=== PATIENT | female | born 1945 | race Caucasian/White ===

== ENCOUNTER 2020-05-31 09:59 | Outpatient (CLI) | payer MEDICARE, OTHER, SELFPAY ==
--- NOTE | 2020-05-31 10:09 | MM_ITS ---
WS: [id number] BILATERAL SCREENING DIGITAL MAMMOGRAM WITH CAD HISTORY: SCREENING COMPARISON: 04/15/2019 and 10/14/2018 and 05/01/2018 Bilateral CC and MLO views submitted. Computer aided detection analyzed. Breast composition: The breasts are heterogeneously dense, which may obscure small masses. No suspici ous masses, microcalcifications or architectural distortion. Bilateral calcifications and nodules wit hin each breast. MM/[id number] IMPRESSION: BI-RADS: 2-Benign FOLLOW UP: 1 Year Follow-up
== END 2020-05-31 10:00 | disposition home or self-care (01) ==
LOC: RADSHAW 10:08
PROVIDERS: PCP Family Medicine; Visit Provider Nurse Practitioner Family
DX: Z12.31 Encounter for screening mammogram for malignant neoplasm of breast (principal)
CPT/HCPCS: 77067

== ENCOUNTER → 2020-08-24 10:48 | Outpatient (BNVA) | payer MEDICARE, OTHER, SELFPAY | PROVIDERS: PCP Family Medicine; Visit Provider Urology | DX: N39.0 Urinary tract infection, site not specified (principal) | CPT/HCPCS: 81001 ==

== ENCOUNTER 2020-11-11 09:57 | Outpatient (CLI) | payer MEDICARE, OTHER, SELFPAY ==
--- NOTE | 2020-11-11 10:15 | USCV_ITS ---
Cris New Age: 75 Gender: F : 1945 Exam Date: 11/11/2020 10:22 Ordering Phys: Michele Recio M.D ([email or web address]) Technologist: Sera New [place] [facility] [place]: SOB BP: 111 / 68 HR: 104 Rhythm: Sinus Technical Quality: Adequate MEASUREMENTS (Male / Female) Normal Values 2D ECHO LV Diastolic Diameter PLAX 4.0 cm 4.2 - 5.9 / 3.9 - 5.3 cm LV Systolic Diameter PLAX 3.6 cm LV Chamber Size 4.0 cm IVS Diastolic Thickness 1.7 cm 0.6 - 1.0 / 0.6 - 0.9 cm IVS Systolic Thickness 1.9 cm LVPW Diastolic Thickness 2.3 cm 0.6 - 1.0 / 0.6 - 0.9 cm LVPW Systolic Thickness 2.5 cm RV Chamber Size 3.2 cm LVOT Diameter 2.1 cm LV Ejection Fraction 2D Teich 19.2 % LV Ejection Fraction MOD 2C 33.3 % LV Ejection Fraction 2C AL 31.8 % LA Diameter 3.8 cm LA Width 4.1 cm LA Height 5.2 cm RA Width 4.1 cm RA Height 4.8 cm Aorta at Sinotubular Diameter 2.7 cm M-MODE LV Diastolic Diameter MM 5.6 cm 4.2 - 5.9 / 3.9 - 5.3 cm LV Systolic Diameter MM 4.7 cm LV Ejection Fraction MM Teich 33.3 % IVS Diastolic Thickness MM 0.9 cm 0.6 - 1.0 / 0.6 - 0.9 cm IVS Systolic Thickness MM 0.8 cm LVPW Diastolic Thickness MM 0.6 cm 0.6 - 1.0 / 0.6 - 0.9 cm LVPW Systolic Thickness MM 1.3 cm RV Diastolic Diameter MM 2.0 cm Aortic Annulus Diameter 3.4 cm LA Ao Ratio MM 1.1 MV E Point Septal Separation 1.1 cm DOPPLER AV Peak Velocity 134.7 cm/s LVOT Peak Velocity 91.0 cm/s AV Area Cont Eq vti 2.4 cm squared AV Area Cont Eq pk 2.3 cm squared MV Area PHT 5.4 cm squared Mitral E to A Ratio 6.8 MV E' Velocity 80.5 cm/s Mitral E to MV E' Ratio 16.8 Mitral E to LV E' Lateral Ratio 18.2 Mitral E to LV E' Septal Ratio 15.8 TR Peak Velocity 253.9 cm/s TR Peak Gradient 25.8 mmHg TR Mean Velocity 237.5 cm/s TR Mean Gradient 22.9 mmHg TR Velocity Time Integral 102.9 cm TV Peak E Velocity 75.0 cm/s Right Atrial Pressure 3.0 mmHg Pulmonary Artery Systolic Pressu 28.8 mmHg PV Peak Velocity 65.0 cm/s RV Acceleration Time 0.1 s RV Ejection Time 0.3 s RV AcT/ET 0.3 FINDINGS Left Ventricle Left ventricle is mildly dilated. Severely reduced with EF of 25 to 30%. Moderate to severe global hypokinesis with severe hypokinesis of anterolateral and anterior wall. Diastolic function is indeterminate because of atrial fibrillation. Right Ventricle The right ventricle is normal in size and function. Right Atrium The right atrium is normal in size. Left Atrium The left atrium is mildly enlarged. Mitral Valve Structurally normal mitral valve without significant stenosis or prolapse. There is trace mitral regurgitation. Aortic Valve Structurally normal aortic valve without significant sclerosis or stenosis. There is no aortic regurgitation. Tricuspid Valve Structurally normal tricuspid valve without significant stenosis or regurgitation. RVSP is 35 to 40 mmHg. This is consistent with mild pulmonary hypertension. Pulmonic Valve Structurally normal pulmonic valve without significant stenosis. There is trace pulmonic regurgitation. Pericardium Normal pericardium without effusion. Aorta Normal ascending aorta dimension. CONCLUSIONS LV systolic function is severely reduced with EF of 25 to 30%. There is moderate to severe global hypokinesis however anterior and anterolateral hernandez have severe hypokinesis. Diastolic function cannot be assessed because of atrial fibrillation. Left atrium is mildly enlarged. There is trace mitral regurgitation. Trace pulmonic regurgitation is seen. Mild pulmonary hypertension is seen. No comparison studies are available. Mcihele Recio MD (Electronically Signed) Final Date: 21 November 2020 12:19 S
== END 2020-11-11 09:58 | disposition home or self-care (01) ==
LOC: US 09:57
PROVIDERS: PCP Family Medicine; Visit Provider Internal Medicine
DX: R06.02 Shortness of breath (principal); I48.91 Unspecified atrial fibrillation; I34.0 Nonrheumatic mitral (valve) insufficiency; I37.1 Nonrheumatic pulmonary valve insufficiency; I27.20 Pulmonary hypertension, unspecified
CPT/HCPCS: 93306

== ENCOUNTER → 2020-12-03 10:16 | Outpatient (BNVA) | payer MEDICARE, OTHER, SELFPAY | PROVIDERS: PCP Family Medicine; Visit Provider Internal Medicine | DX: Z01.812 Encounter for preprocedural laboratory examination (principal); Z20.828 Contact with and (suspected) exposure to other viral communicable diseases; I42.9 Cardiomyopathy, unspecified | CPT/HCPCS: 80048; 85025; 87635 ==

== ENCOUNTER 2020-12-13 07:17 | Day surgery (SDC) | payer MEDICARE, OTHER, SELFPAY ==
[2020-12-13] VITALS (28 sets, daily range): BP systolic 135–169; BP diastolic 76–112; PULSE 84–121; RESP 14–29; TEMP 36.1–36.9; O2SAT 85–99; BMI 31.3
--- NOTE | 2020-12-13 07:00 | XACV_ITS ---
Ht: 168 cm Wt: 88 kg BSA: 2.05 m2 Gender: Female : 1945 Any Known Allergies: Other Exam Priority: Routine Procedure(s): Procedure Description: Diagnostic procedure Procedure Description: Left Heart Catheterization Procedure Description: Right Heart Catheterization Procedure Description: Left ventriculography Procedure Description: O2 saturation Procedure Description: Coronary Angiography Diagnostic Cath Status: Elective Diagnostic Findings * No significant disease noted in the Left Main, LAD, Circumflex, or RCA coronary arteries. Left main artery: This is a calcified vessel. No significant stenosis is seen. LAD: It is a small sized vessel. It gives rise to a large diagonal branch. Diagonal branch has moderate 30% stenosis in mid segment. Left circumflex artery: No significant disease is noted. It gives rise to 2 large sized OM branches which are free of disease. RCA: Has moderate diffuse luminal irregularities. No significant stenosis is seen.. * Right heart cath findings: RA pressure 21/23(20) mmHg RV pressure: 53/8(15) mmHg PCW: 46/30(32) mmHg PA pressure: 58/35(43) LVEDP 25 PA saturation: 66.5% AO saturation 92.8% Cardiac output by Kimberlyn: 4.9 L/min Cardiac index by Kimberlyn: 2.4 L/min/m2 TP mmHg PVR: 2.2 Wood units Moderate WHO group 2 hypertension secondary to elevated LV pressure.. * Coronary angiography shows right dominance. Conclusions 1. Nonischemic cardiomyopathy. 2. Elevated right and left-sided cardiac pressures. 3. Normal cardiac output and cardiac index. 4. Moderate post capillary pulmonary hypertension. 5. No significant disease noted in the Left Main, LAD, Circumflex, or RCA coronary arteries. Recommendations * We will initiate Lasix 20 mg twice daily as cardiac pressures are elevated. * Rate control for atrial fibrillation. Interventional RX Recommendation: medical therapy and/or counseling Diagnostic RX Recommendation: medical therapy and/or counseling Pressures Phase:Rest AO : 131 / 85 ( 102 ) @ 3:11:00 AM 119 / 71 ( 91 ) @ 3:20:00 AM 156 / 67 ( 106 ) @ 3:23:00 AM 149 / 72 ( 106 ) @ 3:23:00 AM LV : 154 / 3 / @ 3:23:00 AM 153 / 0 / @ 3:23:00 AM RV : 53 / 8 / @ 2:46:00 AM PA : 58 / 35 ( 43 ) @ 2:48:00 AM RA : a wave = v wave = mean = 20 @ 2:44:00 AM O2 Content Phase:Rest PA : O2 Content O2: 66.5 @ 3:11:00 AM Saturations Phase:Rest AO : 93 @ 3:20:00 AM PA : 67 @ 3:11:00 AM Valves Phase:DefaultPhase AV : 0.0 @ 9:58:17 AM AV Mean Gradient: 0.0 @ 9:58:17 AM Clinical Evaluation EBL: 5mL-10mL Procedural Details Procedure Consent Obtained. Pre-Procedure Time Out. Identified patient by full name and date of as verbalized by the patient/guarantor. Does the consent match the physician's order: Yes. Accurate & Complete Informed Consent: Yes. Inpatient/Outpatient History & Physical on Chart: Yes. If H&P is completed, is and addenduem needed: N/A; If yes, is the addendum complete: N/A. Visualize and Verify Site with Patient/Guarantor: N/A. Relevant Radiology Images available: Yes. Pre-op teaching completed and patient verbalized understanding. The risks, benefits, and alternatives of sedation and/or procedure were discussed by physician. The patient agrees to continue. Procedure started. PERRLA. Strong, equal hand manager consumer insights bilaterally. Lungs clear x 5 lobes. IV Site on Arrival: 20 gauge in the right anticubital. IV Site on Arrival: 20 gauge in the left anticubital. right radial was prepped with chloroprep then draped in the usual sterile fashion. right brachial was prepped with chloroprep then draped in the usual sterile fashion. right groin was prepped with chloroprep then draped in the usual sterile fashion. Physician notified. Physician arrived. Physician scrubbed in. Immediate Pre-Procedure Time Out. Correct Patient: Yes; Correct Procedure: Yes; Correct Site: Yes; Correct Patient Position: Yes; Correct Supplies: Yes; Dried Flammable Prep: Yes; Blood Products Available: N/A;. Lidocaine 1% infiltrated to the right brachial. sheath through I.V. catheter. I.V. catheter out. Mcewen-Julia MON catheter inserted. cougar wire inserted through swan. Baseline sample Acquired. HR: 96 BPM. IV Fluids: 0.9% NaCl at KVO. 0 mL infused prior to photonic laboratory technician. Pre Procedural Pulses: bilateral dorsalis pedis was 2+. Pre Procedural Pulses: bilateral posterior tibial was 1+. Pre Procedural Pulses: bilateral radial was 3+. pt on r/a for rhc. Oximetry samples were obtained. Normal venous range: 60-85%. Normal arterial range: 95-100%. Pressure measurements obtained. Mcewen-Julia out. Lidocaine 1% infiltrated to the right radial. Arterial access obtained. A 5 maldivian TIG catheter in over wire. glidewire inserted. Inventory is TR Glidewire Angled .038 260cm. Equipment: 6F - Radial. Cardiac Cath Pack. ACIST Manifold Kit Model BT 2000. Heparinized Saline (2 units/mL), 1000 mL bag. Glidewire removed. Hand injection performed. Catheter out. Lidocaine 1% infiltrated to the right groin. Arterial access obtained with micropuncture set. Lidocaine 1% infiltrated to the right groin. A 5 maldivian JL4 catheter in over wire. Multiple views taken of left coronary artery. Catheter out. A 5 maldivian JR4 catheter in over wire. Multiple views taken of right coronary artery. Catheter out. A 5 maldivian Angled Pig catheter in over wire. A Manual Compression was successful obtaining hemostatsis at the Right Brachial artery insertion site. A TR Band was successful obtaining hemostatsis at the Right Radial artery insertion site. EDP Sample taken: LV 154/3,25; HR: 106 BPM; SpO2: 94%. Pullback taken: LV 153/0,6; AO 156/67(106); Mean: 0mmHg, Peak to Peak: 0mmHg, SEP: 12sec/min; HR: 101 BPM; SpO2: 97%. Catheter out. groin shot. Post Procedure: Pulses reassessed and unchanged. PERRLA. Strong, equal hand manager consumer insights bilaterally. No VTE prophylaxis required. Fluoro: 11:40. Contrast type used: Omnipaque 300 mgI/mL, 500 mL bottle. [id number]. Medication's Wasted: Heparin = 1000 units. Total IV fluids: 75 mL. Complications: none. Estimated blood loss: 5mL-10mL. Post-op diagnosis: nonischemic cardiomyopathy. A Manual Compression was successful obtaining hemostatsis at the Right Femoral artery insertion site. Sheath(s) removed and manual pressure held until hemostasis was achieved. Sterile 4x4 and Op-site applied to the puncture site. No oozing or hematoma noted. Post sheath removal instructions were given and the patient verbalized understanding. [facility] Clinical Fraility Score: 4: Vulnerable. Lease Administration Analyst Indications: Cardiomyopathy. Chest Pain Symptom Assessment: Non-anginal Chest Pain. Cardiovascular Instability: No. Patient transferred by bed to 1st floor. perclose attempted and failed. Vital chart was stopped. Access Site Site: Right Brachial artery Sheath Size: 6 Fr Hemostasis Method: Manual Compression Hemostasis Success: Successful Site: Right Radial artery Sheath Size: 6 Fr Hemostasis Method: TR Band Hemostasis Success: Successful Site: Right Femoral artery Sheath Size: 6 Fr Hemostasis Method: Manual Compression Hemostasis Success: Successful Procedure Medications Start: 8:38 AM Stop: 8:38 AM Medication: Aspirin Amount: 325 mg Route: P.O. Start: 8:38 AM Stop: 8:38 AM Medication: Versed Amount: 1 mg Route: I.V. Start: 8:38 AM Stop: 8:38 AM Medication: Fentanyl Amount: 50 mcg Route: I.V. Start: 8:40 AM Stop: 8:40 AM Medication: Versed Amount: 1 mg Route: I.V. Start: 8:53 AM Stop: 8:53 AM Medication: Nitrogylcerin Amount: 200 mcg Route: I.A. Start: 8:54 AM Stop: 8:54 AM Medication: Versed Amount: 1 mg Route: I.V. Start: 8:54 AM Stop: 8:54 AM Medication: Fentanyl Amount: 50 mcg Route: I.V. Start: 9:04 AM Stop: 9:04 AM Medication: Versed Amount: 1 mg Route: I.V. Start: 9:34 AM Stop: 9:34 AM Medication: Fentanyl Amount: 50 mcg Route: I.V. Start: 9:51 AM Stop: 9:51 AM Medication: Fentanyl Amount: 50 mcg Route: I.V. Start: 9:54 AM Stop: 9:54 AM Medication: Fentanyl Amount: 50 mcg Route: I.V. I, the attending physician, have reviewed and verified all procedure medications. Yes, all medications given per verbal order History/Risk Factors Hypertension: Yes Dyslipidemia: Yes Tobacco Use: Never Report Signatures Finalized by Michele Recio MD on 12/23/2020 04:51 PM
[2020-12-13] MEDS: TRAMadol 50 mg Tablet PO (11:43)
--- NOTE | 2020-12-23 16:17 | W.PM.OPSUD ---
Surgery/Procedure H&P Update DATE OF PROCEDURE: December 13, 2020 DATE H&P PERFORMED: 11/24/20 H&P UPDATE INFORMATION: I have reviewed H&P completed within last 30 days, I have examined patient prior to procedure and No changes to prior documentation PREOP DIAGNOSIS: New onset cardiomyopathy PRIMARY INDICATION FOR PROCEDURE: New onset cardiomyopathy PLANNED PROCEDURE: Operation Date: 12/13/20 08:30 Proposed Procedures Right heart cath+ left Cardiac Catheterization 28527 I42.9(Left) - Michele Recio M.D PATIENT REASSESSED PRIOR TO SEDATION, WITH NO CHANGE NOTED: Yes PHYSICAL EXAM: alert, oriented x 3 and clear to auscultation bilaterally AIRWAY EVAL/ANESTHESIA PLAN: ASA III, Risks, benefits & alternatives of sedation and/or procedure discussed and Patient agrees to continue as planned
== END 2020-12-13 18:00 | disposition home or self-care (01) ==
LOC: CCL 07:24 → CSU 10:12
PROVIDERS: PCP Family Medicine; Visit Provider Internal Medicine
DX: I42.9 Cardiomyopathy, unspecified (principal); F41.9 Anxiety disorder, unspecified; F32.9 Major depressive disorder, single episode, unspecified; I48.91 Unspecified atrial fibrillation; Z79.01 Long term (current) use of anticoagulants; E78.5 Hyperlipidemia, unspecified; J44.9 Chronic obstructive pulmonary disease, unspecified
CPT/HCPCS: 36415; 93453; C1751; C1769; C1887; C1894; J1644; J2250; J3010; J3490; J7030; Q0163; Q9967

== ENCOUNTER → 2021-01-11 15:27 | Outpatient (BNVA) | payer MEDICARE, OTHER, SELFPAY | PROVIDERS: PCP Family Medicine; Visit Provider Internal Medicine | DX: I48.91 Unspecified atrial fibrillation (principal); I50.20 Unspecified systolic (congestive) heart failure; R06.00 Dyspnea, unspecified; I11.0 Hypertensive heart disease with heart failure; E78.5 Hyperlipidemia, unspecified | CPT/HCPCS: 80048; 83880 ==

== ENCOUNTER 2021-06-02 09:58 | Outpatient (CLI) | payer MEDICARE, OTHER, SELFPAY ==
--- NOTE | 2021-06-02 10:07 | MM_ITS ---
WS: [id number] Bilateral screening digital mammogram, 06/02/2021 Clinical Data: SCREENING Comparison: 05/31/2020, 04/15/2019, 10/14/2018, 05/01/2018, 05/09/2017, 05/03/2016, 04/15/2015, 04/03/2014, 04/15, 03/25/2013, 02/05/2012, 06/02/2011, 05/16/2011, 03/31/2010, 03/04/2009, 01/19/2009, 09/10/2008, 008. Findings: The breast parenchymal pattern shows heterogeneous density. No spiculated masses or clustered calcifi cations are seen. There are no secondary signs of carcinoma. There are small diffuse calcifications i n both breasts. MM/[id number] Impression: 1. Negative bilateral mammogram unchanged. 2. Recommend annual screening mammograms. BIRADS: 1-Negative FOLLOW UP: 1 Year Follow-up The CAD gas and oil checker was used.
== END 2021-06-02 09:59 | disposition home or self-care (01) ==
LOC: RADSHAW 10:04
PROVIDERS: PCP Family Medicine; Visit Provider Family Medicine
DX: Z12.31 Encounter for screening mammogram for malignant neoplasm of breast (principal)
CPT/HCPCS: 77067

== ENCOUNTER 2021-10-12 10:33 | Outpatient (CLI) | payer MEDICARE, OTHER, SELFPAY ==
--- NOTE | 2021-10-12 11:00 | USCV_ITS ---
Shaq Cris Age: 76 Gender: F : 1945 Exam Date: 10/12/2021 11:08 Ordering Phys: Michele Recio M.D ([email or web address]) Technologist: Exam Location: [facility] [place] Indication: chronic AFIB, prior ECHO showed reduced LVEF, no hx cardiac intervention per patient. BP: / HR: 97 Rhythm: Atrial fibrillation Technical Quality: Adequate MEASUREMENTS (Male / Female) Normal Values 2D ECHO LV Diastolic Diameter PLAX 4.9 cm 4.2 - 5.9 / 3.9 - 5.3 cm LV Systolic Diameter PLAX 3.9 cm IVS Diastolic Thickness 1.4 cm 0.6 - 1.0 / 0.6 - 0.9 cm IVS Systolic Thickness 2.1 cm LVPW Diastolic Thickness 1.3 cm 0.6 - 1.0 / 0.6 - 0.9 cm LVPW Systolic Thickness 1.4 cm LVOT Diameter 1.8 cm LV Ejection Fraction 2D Teich 42.5 % LV Ejection Fraction MOD 2C 40.4 % LV Ejection Fraction 2C AL 41.2 % LA Diameter 5.5 cm LA Width 5.7 cm LA Height 6.2 cm RA Width 4.0 cm RA Height 5.2 cm Aorta at Sinotubular Diameter 3.7 cm M-MODE Aortic Annulus Diameter 3.7 cm LA Ao Ratio MM 1.4 MV E Point Septal Separation 1.1 cm DOPPLER AV Peak Velocity 130.0 cm/s LVOT Peak Velocity 91.0 cm/s AV Area Cont Eq vti 1.7 cm squared AV Area Cont Eq pk 1.9 cm squared MV Peak Velocity 171.0 cm/s MV Area PHT 2.6 cm squared Mitral E to A Ratio 103.6 MV E' Velocity 78.5 cm/s Mitral E to MV E' Ratio 11.9 Mitral E to LV E' Lateral Ratio 12.2 Mitral E to LV E' Septal Ratio 11.7 TR Peak Velocity 322.7 cm/s TR Peak Gradient 41.6 mmHg TV Peak E Velocity 74.0 cm/s PV Peak Velocity 85.3 cm/s RV Acceleration Time 0.1 s RV Ejection Time 0.3 s RV AcT/ET 0.3 FINDINGS Left Ventricle Normal left ventricular size. LV systolic function is mild to moderately reduced with EF of 40-45%. Mild global hypokinesis with moderate hypokinesis of the anteroseptal wall. Diastolic function is indeterminate because of atrial fibrillation. Right Ventricle The right ventricle is normal in size and function. Right Atrium The right atrium is normal in size. Left Atrium The left atrium is enlarged Mitral Valve Mild mitral annular calcification is seen without significant stenosis or prolapse. There is mild mitral regurgitation. Aortic Valve Structurally normal aortic valve without significant sclerosis or stenosis. There is trace aortic regurgitation. Tricuspid Valve Structurally normal tricuspid valve without significant stenosis. Mild tricuspid regurgitation. RVSP is 45 to 50 mmHg. This is consistent with moderate pulmonary hypertension Pulmonic Valve Structurally normal pulmonic valve without significant stenosis. There is mild pulmonic regurgitation. Pericardium Normal pericardium without effusion. Aorta Normal ascending aorta dimension. CONCLUSIONS LV systolic function is mild to moderately reduced with EF of 40 to 45%. Mild global hypokinesis with moderate hypokinesis of anteroseptal wall is seen. Diastolic function is indeterminate because of atrial fibrillation. Left atrial enlargement seen. Mild mitral regurgitation. Trace aortic regurgitation. Mild tricuspid regurgitation. Mild pulmonic regurgitation. Moderate pulmonary hypertension with RVSP of 45 to 50 mmHg. Compared to prior echocardiogram from 11/11/2020, LV systolic function has improved from 20 to 25% at that time to 40 to 45% now. Michele Recio MD (Electronically Signed) Final Date: 23 October 2021 18:42 S
== END 2021-10-12 10:34 | disposition home or self-care (01) ==
PROVIDERS: PCP Family Medicine; Visit Provider Internal Medicine
DX: I48.91 Unspecified atrial fibrillation (principal); I08.3 Combined rheumatic disorders of mitral, aortic and tricuspid valves
CPT/HCPCS: 93306

== ENCOUNTER 2022-08-04 12:09 | Outpatient (CLI) | payer MEDICARE, OTHER, SELFPAY ==
--- NOTE | 2022-08-04 | MM_ITS ---
WS: [id number] Bilateral screening digital mammogram, 08/04/2022 Clinical Data: SCREENING Comparison: 06/02/2021, 05/31/2020, 04/15/2019, 10/14/2018, 05/01/2018, 05/09/2017, 05/03/2016, 04/15/2015, 03/13, 04/15/2013, 03/25/2013, 02/05/2012, 06/02/2011, 05/16/2011, 03/31/2010, 03/04/2009, 01/19/2009, 008, 03/02/2008. Findings: The breast parenchymal pattern shows heterogeneous density. No spiculated masses or clustered calcifi cations are seen. There are no secondary signs of carcinoma. There are scattered benign calcification s throughout both breasts. MM/[id number] Impression: 1. Negative bilateral mammogram unchanged. 2. Recommend annual screening mammograms. BIRADS: 1-Negative FOLLOW UP: 1 Year Follow-up The CAD field checker was used.
--- NOTE | 2022-08-04 12:18 | MM_ITS ---
WS: [id number] Bilateral screening digital mammogram, 08/04/2022 Clinical Data: SCREENING Comparison: 06/02/2021, 05/31/2020, 04/15/2019, 10/14/2018, 05/01/2018, 05/09/2017, 05/03/2016, 04/15/2015, 03/13, 04/15/2013, 03/25/2013, 02/05/2012, 06/02/2011, 05/16/2011, 03/31/2010, 03/04/2009, 01/19/2009, 008, 03/02/2008. Findings: The breast parenchymal pattern shows heterogeneous density. No spiculated masses or clustered calcifi cations are seen. There are no secondary signs of carcinoma. There are scattered benign calcification s throughout both breasts.
== END 2022-08-04 12:10 | disposition home or self-care (01) ==
PROVIDERS: PCP Family Medicine; Visit Provider Family Medicine
DX: Z12.31 Encounter for screening mammogram for malignant neoplasm of breast (principal)
CPT/HCPCS: 77063; 77067

== ENCOUNTER → 2022-11-20 14:41 | Outpatient (BNVA) | payer MEDICARE, OTHER, SELFPAY | PROVIDERS: PCP Family Medicine; Visit Provider Internal Medicine | DX: I11.0 Hypertensive heart disease with heart failure (principal); I50.20 Unspecified systolic (congestive) heart failure; R06.00 Dyspnea, unspecified; I48.91 Unspecified atrial fibrillation; E78.5 Hyperlipidemia, unspecified; Z87.891 Personal history of nicotine dependence | CPT/HCPCS: 99214 ==

== ENCOUNTER → 2023-05-22 13:48 | Outpatient (BNVA) | payer MEDICARE, OTHER, SELFPAY | PROVIDERS: PCP Family Medicine; Visit Provider Nurse Practitioner Family | DX: I48.91 Unspecified atrial fibrillation (principal); Z79.01 Long term (current) use of anticoagulants; I11.0 Hypertensive heart disease with heart failure; I50.20 Unspecified systolic (congestive) heart failure | CPT/HCPCS: 99214 ==

== ENCOUNTER 2023-08-06 11:03 | Outpatient (CLI) | payer MEDICARE, OTHER, SELFPAY ==
--- NOTE | 2023-08-06 11:15 | MM_ITS ---
WS: [id number] BILATERAL 2D DIGITAL DIAGNOSTIC MAMMOGRAPHY WITH CAD CLINICAL INFORMATION: SCREENING COMPARISON: 2021 TECHNIQUE: Bilateral CC, MLO, and ML views. FINDINGS: Scattered fibroglandular densities bilaterally. Incidental punctate and lucent centered calcification s. Vascular calcifications. Stable punctate and clustered calcifications bilaterally. Stable ovoid no dules RIGHT breast. No suspicious focal mass, asymmetry, calcifications, or architectural distortion. No evidence of martin gnancy. IMPRESSION: MM/[id number] BI-RADS: 2-Benign FOLLOW UP: 1 Year Follow-up Recommend return to annual screening mammography.
== END 2023-08-06 11:04 | disposition home or self-care (01) ==
PROVIDERS: PCP Family Medicine; Visit Provider Nurse Practitioner Family
DX: Z12.31 Encounter for screening mammogram for malignant neoplasm of breast (principal)
CPT/HCPCS: 77067

== ENCOUNTER → 2023-08-16 11:54 | Outpatient (BNVA) | payer MEDICARE, OTHER, SELFPAY | PROVIDERS: PCP Family Medicine; Visit Provider Nurse Practitioner Women's Health | DX: R39.15 Urgency of urination (principal); N76.2 Acute vulvitis; R35.0 Frequency of micturition | CPT/HCPCS: 84315; 87086 ==

== ENCOUNTER → 2023-10-30 12:34 | Outpatient (BNVA) | payer MEDICARE, OTHER, SELFPAY | PROVIDERS: PCP Family Medicine; Visit Provider Internal Medicine | DX: R06.00 Dyspnea, unspecified (principal); I11.0 Hypertensive heart disease with heart failure; I50.20 Unspecified systolic (congestive) heart failure; I48.91 Unspecified atrial fibrillation; E78.5 Hyperlipidemia, unspecified; Z79.01 Long term (current) use of anticoagulants | CPT/HCPCS: 99214 ==

== ENCOUNTER → 2024-02-22 11:20 | Outpatient (BNVA) | payer MEDICARE, OTHER, SELFPAY | PROVIDERS: PCP Family Medicine; Visit Provider Podiatrist Foot & Ankle Surgery | DX: I73.9 Peripheral vascular disease, unspecified (principal); L84 Corns and callosities; Q66.71 Congenital pes cavus, right foot; Q66.72 Congenital pes cavus, left foot | CPT/HCPCS: 11056; 99203 ==

== ENCOUNTER 2024-03-28 16:31 | Outpatient (CLI) | payer MEDICARE, OTHER, SELFPAY ==
--- NOTE | 2024-03-28 16:41 | USR_ITS ---
PROCEDURE INFORMATION: Exam: US Duplex Right Lower Extremity Veins, Limited Exam date and time: 03/28/2024 4:53 PM Age: 78 years old Clinical indication: Pain; Leg, lower; Right; Additional info: Pain of right lower extremity TECHNIQUE: Imaging protocol: Real-time duplex ultrasound of the right extremity with 2-D hinojosa scale, color Doppler flow and spectral waveform analysis including responses to compression and other maneuvers (when performed) with image documentation. Limited exam was focused on the right lower extremity veins. COMPARISON: No relevant prior studies available. FINDINGS: Right deep veins: Unremarkable. The common femoral, femoral, proximal profunda femoral and popliteal veins are patent without thrombus. Normal Doppler waveforms. Normal compressibility and/or augmentation response. Superficial veins: Greater saphenous vein at the saphenofemoral junction is patent without thrombus. Soft tissues: Popliteal cyst is visualized measuring up to 6.5 x 2.4 x 1.7 cm. US/[place] [id number] IMPRESSION: No evidence of right lower extremity DVT. Right popliteal cyst.
== END 2024-03-28 16:32 | disposition home or self-care (01) ==
LOC: RAD 16:31
PROVIDERS: PCP Family Medicine; Visit Provider Registered Nurse
DX: M79.604 Pain in right leg (principal); R60.0 Localized edema; M71.21 Synovial cyst of popliteal space [Baker], right knee
CPT/HCPCS: 93971

== ENCOUNTER 2024-03-31 12:12 | Outpatient (CLI) | payer MEDICARE, OTHER, SELFPAY | END 2024-03-31 12:13 | disposition home or self-care (01) | LOC: SPT 04-01 09:13 | PROVIDERS: PCP Family Medicine; Visit Provider Podiatrist Foot & Ankle Surgery | DX: S91.302A Unspecified open wound, left foot, initial encounter (principal); S91.301A Unspecified open wound, right foot, initial encounter; X58.XXXA Exposure to other specified factors, initial encounter | CPT/HCPCS: L3030 ==

== ENCOUNTER → 2024-04-03 09:57 | Outpatient (BNVA) | payer MEDICARE, OTHER, SELFPAY | PROVIDERS: PCP Family Medicine; Visit Provider Internal Medicine | DX: I48.91 Unspecified atrial fibrillation (principal); R06.00 Dyspnea, unspecified; I50.20 Unspecified systolic (congestive) heart failure; I10 Essential (primary) hypertension | CPT/HCPCS: 80048; 83880 ==

== ENCOUNTER → 2024-04-30 13:33 | Outpatient (BNVA) | payer MEDICARE, OTHER, SELFPAY | PROVIDERS: PCP Family Medicine; Visit Provider Internal Medicine Cardiovascular Disease | DX: I48.91 Unspecified atrial fibrillation (principal); I11.0 Hypertensive heart disease with heart failure; I50.20 Unspecified systolic (congestive) heart failure; Z87.891 Personal history of nicotine dependence; Z79.01 Long term (current) use of anticoagulants | CPT/HCPCS: 99214 ==

== ENCOUNTER 2024-08-22 10:13 | Outpatient (CLI) | payer MEDICARE, OTHER, SELFPAY ==
--- NOTE | 2024-08-22 10:23 | MM_ITS ---
WS: [id number] BILATERAL 3D TOMOSYNTHESIS DIGITAL SCREENING MAMMOGRAPHY WITH CAD CLINICAL INFORMATION: SCREENING HISTORY: Screening mammogram. No current complaints. COMPARISON: 2022 TECHNIQUE: Bilateral CC and MLO views. FINDINGS: The breasts are composed of heterogeneous fibroglandular density tissue, which can limit the detectio n of small underlying mass lesions. No suspicious mass, asymmetry, calcifications, or architectural d istortion. No evidence of malignancy. Punctate and lucent centered calcifications. Vascular calcifica tions. MM/MM [facility] tomosynthesis [id number] IMPRESSION: DENSITY:The breasts are heterogeneously dense, which may obscure small masses. BI-RADS: 2 - Benign FOLLOW UP: 1 Year Follow-up Recommend return to annual screening mammography.
== END 2024-08-22 10:14 | disposition home or self-care (01) ==
LOC: RAD 10:14
PROVIDERS: PCP Family Medicine; Visit Provider Family Medicine
DX: Z12.31 Encounter for screening mammogram for malignant neoplasm of breast (principal); R92.333 Mammographic heterogeneous density, bilateral breasts; R92.1 Mammographic calcification found on diagnostic imaging of breast
CPT/HCPCS: 77063; 77067

== ENCOUNTER → 2024-11-03 14:12 | Outpatient (BNVA) | payer MEDICARE, OTHER, SELFPAY | PROVIDERS: PCP Family Medicine; Visit Provider Internal Medicine | DX: I11.0 Hypertensive heart disease with heart failure (principal); I50.20 Unspecified systolic (congestive) heart failure; I48.91 Unspecified atrial fibrillation; E78.5 Hyperlipidemia, unspecified; R06.00 Dyspnea, unspecified; Z87.891 Personal history of nicotine dependence; Z79.01 Long term (current) use of anticoagulants | CPT/HCPCS: 99213 ==

== ENCOUNTER 2025-04-04 10:15 | Inpatient (IN) | payer MEDICARE, OTHER, SELFPAY ==
[2025-04-04 10:18] VITALS: BP 173/63; PULSE 59; RESP 18; TEMP 36.8; O2SAT 99
--- NOTE | 2025-04-04 10:19 | CTR_ITS ---
PROCEDURE INFORMATION: Exam: CT Head Without Contrast Exam date and time: 04/04/2025 10:45 AM Age: 79 years old Clinical indication: Altered mental status/memory loss and weakness, extremity; Confusion or disorientation TECHNIQUE: Imaging protocol: Computed tomography of the head without contrast. Radiation optimization: All CT scans at this facility use at least one of these dose optimization techniques: automated exposure control; mA and/or kV adjustment per patient size (includes targeted exams where dose is matched to clinical indication); or iterative reconstruction. COMPARISON: None RADIATION DOSE METRICS: Total DLP (mGy-cm): 1118.1 FINDINGS: Brain: Moderate nonspecific white matter low attenuation which may be related to microvascular ischemic changes. No acute confluent lobar ischemic infarct. No acute intracranial hemorrhage. Cerebral ventricles: The ventricles and sulci are prominent in size compatible with moderate atrophy. Paranasal sinuses: No fluid levels. Mastoid air cells: Visualized mastoid air cells are well aerated. Bones: No acute calvarial fracture. Soft tissues: Visualized soft tissues are unremarkable. CT/CT head wo con* [id number] IMPRESSION: No acute intracranial abnormality. If symptoms persist, consider further evaluation with MRI, if there are no contraindications to obtaining a MRI scan.
--- NOTE | 2025-04-04 10:19 | XRR_ITS ---
PROCEDURE INFORMATION: Exam: XR Chest Exam date and time: 04/04/2025 10:37 AM Age: 79 years old Clinical indication: Other: Weakness; Additional info: Weakness; Fall TECHNIQUE: Imaging protocol: Radiologic exam of the chest. Views: 1 view. COMPARISON: No relevant prior studies available. FINDINGS: Lungs: No focal lung consolidation. Pleural spaces: No pleural effusion. No pneumothorax. Heart/Mediastinum: Mild cardiomegaly. Bones/joints: No acute bony abnormality. XR/XR chest 1V portable [id number] IMPRESSION: No focal lung consolidation.
--- NOTE | 2025-04-04 10:27 | W.ED.NAVMDI ---
HPI - Nausea/Vomiting/Diarrhea General: Chief complaint: Weakness Stated complaint: weakness Time Seen by Provider: 04/04/25 10:16 Source: patient Mode of arrival: ambulatory Limitations: no limitations History of Present Illness: 79-year-old female who states that she has been having increasing weakness is going on a little over a week. She states she initially woke up this morning she was not able to stand or get out of bed states her legs feel extremely weak. She states she lives home alone she does use a cane but was unable to ambulate with a cane either. She denies any recent illness denies any fever denies any vomiting denies any pain. She had a fall she states 5 to 6 days ago does have bruising to her face she denies any pain Associated nausea: No Associated symtoms: Reports malaise; Denies chest pain, dysuria, headache(s) or nausea Related Data Home Medications ?Medication ?Instructions ?Recorded ?Confirmed fluticasone propionate 50 2 spray intranasal DAILY 08/24/20 04/04/25 mcg/actuation nasal spray,suspension (Flonase Allergy Relief) hydroxyzine HCl 25 mg tablet 25 mg PO TID PRN Anxiety 08/24/20 04/04/25 milk thistle 500 mg capsule 500 mg PO DAILY 08/24/20 04/04/25 propylthiouracil 50 mg tablet 50 mg PO TID 08/24/20 04/04/25 tramadol 50 mg tablet 50 mg PO Q8H PRN Pain 08/24/20 04/04/25 multivitamin 1 tab PO DAILY 11/07/21 04/04/25 red yeast rice 600 mg capsule 600 mg PO DAILY 03/22/22 04/04/25 bupropion HCl 150 mg 24 hr tablet, 150 mg PO BID 04/30/24 04/04/25 extended release amiodarone 200 mg tablet 200 mg PO DAILY 04/04/25 04/04/25 apixaban 5 mg tablet (Eliquis) 5 mg PO BID 04/04/25 04/04/25 betamethasone, augmented 0.05 % 1 applic topical BID PRN Skin 04/04/25 04/04/25 topical ointment Irritation cranberry fruit 200 mg-dandelion 1 cap PO DAILY 04/04/25 04/04/25 50 mg-goldenseal 20 mg-herbs capsule (Urinary Cranberry Blend) dextromethorphan-guaifenesin 30 1 tab PO Q12H PRN Congestion 04/04/25 04/04/25 mg-600 mg tablet extended hxiazxv00 hr (Mucinex DM) hydrochlorothiazide 12.5 mg capsule 12.5 mg PO DAILY 04/04/25 04/04/25 losartan 100 mg tablet 100 mg PO DAILY 04/04/25 04/04/25 ondansetron 4 mg disintegrating 4 mg PO Q8H PRN Nausea And Vomiting 04/04/25 04/04/25 tablet vitamin B complex 1 tab PO DAILY 04/04/25 04/04/25 Previous Rx's ?Medication ?Instructions ?Recorded custom inserts #1 ea 02/22/24 metoprolol tartrate 50 mg tablet 50 mg PO BID #180 tabs 10/27/24 Allergies Allergy/AdvReac Type Severity Reaction Status Date / Time citalopram (From Celexa) Allergy NA Verified 11/03/24 14:22 clarithromycin Allergy NA Verified 11/03/24 14:22 clindamycin Allergy NA Verified 11/03/24 14:22 doxepin Allergy NA Verified 11/03/24 14:22 hydrocodone Allergy NA Verified 11/03/24 14:22 ibuprofen Allergy NA Verified 11/03/24 14:22 levofloxacin Allergy NA Verified 11/03/24 14:22 lisinopril Allergy NA Verified 11/03/24 14:22 naproxen (From Aleve) Allergy NA Verified 11/03/24 14:22 Penicillins Allergy NA Verified 11/03/24 14:22 pseudoephedrine Allergy NA Verified 11/03/24 14:22 red dye Allergy NA Verified 11/03/24 14:22 Sulfa (Sulfonamide Allergy NA Verified 11/03/24 14:22 Antibiotics) venlafaxine Allergy NA Verified 11/03/24 14:22 Review of Systems Const: Reports: malaise; Denies: fever(s), chills, body aches or change in appetite Eyes: Denies: blurry vision or eye discomfort ENMT: Denies: throat pain or dental pain Card: Denies: chest pain Resp: Denies: dyspnea GI: Denies: abdominal pain, nausea, vomiting or diarrhea : Denies: dysuria Musc: Denies: neck pain or back pain Skin/Breast: Denies: rash Neuro: Reports: weakness in extremities; Denies: headache(s) PFSH ED PFSH: Medical History No pertinent past medical history NEGHX:DM,DVT/PE PCP: Shai New and Amberly Lima Anxiety Hypothyroidism Family hx of colon cancer Atrial fibrillation Heart failure with reduced ejection fraction Hyperlipidemia COPD (chronic obstructive pulmonary disease) HTN (hypertension) Recurrent UTI Surgical History Hx of hysterectomy (~1985) 1985 INOCENCIO, BSO performed by Dr. Gonzalez Due to bleeding and cervical polyps S/P appendectomy S/P sinus surgery S/P cataract surgery S/P tonsillectomy S/P bunionectomy S/P cholecystectomy S/P shoulder surgery Family History Mother , 82 Breast cancer dx age later in life Denies family history of Colon cancer Ovarian cancer Diabetes Heart disease Hypercholesteremia Hypertension Uterine cancer Thyroid disease Stroke Social History Smoking and tobacco/nicotine status: former use of tobacco/nicotine Physical Exam Const: COMMON NORMALS: patient oriented x3 HENMT: COMMON NORMALS: atraumatic HEAD & SCALP: atraumatic OTHER: Bruising noted to face Neck/C-Spine: COMMON NORMALS: full ROM and supple Chest: COMMONS NORMALS: normal inspection of the chest Resp: COMMON NORMALS: normal respiratory effort, No retractions, No use of accessory muscles and clear to auscultation bilaterally AUSCULTATION: clear to auscultation bilaterally Cardio: COMMON NORMALS: regular rate, regular rhythm and No murmurs present (Cardio) RATE: regular rate RHYTHM: regular rhythm GI: COMMON NORMALS: Normal to inspection, nondistended, normoactive bowel sounds present, Soft to palpation, non-tender and no masses PALPATION: Yes Soft to palpation Extremity: COMMON NORMALS: normal to inspection and full ROM Neuro: COMMON NORMALS: patient oriented x3, moves all extremities and no focal motor deficits Psych: COMMON NORMALS: mental status grossly normal, Normal thought process present and cooperative THOUGHT PROCESS: Normal thought process present Skin: COMMON NORMALS: no rashes or lesions noted and no wounds GENERAL SKIN EXAM: no rashes or lesions noted Course Vital Signs: Vital signs: Vital Signs Temperature 98.3 F 04/04/25 10:18 Pulse Rate 67 04/04/25 12:23 Respiratory Rate 18 04/04/25 10:18 Blood Pressure 166/77 04/04/25 12:23 Pulse Oximetry 95 04/04/25 12:23 Oxygen Delivery Me thod Room Air 04/04/25 12:23 MDM - Nausea/Vomiting/Diarrhea Medical Decision Making Patient presents here with generalized weakness she is not able to ambulate or take care of herself blood work imaging is normal spoke to hospitalist will admit Medical Records I reviewed the patient's medical records. Lab Data I reviewed the patient's lab results. 04/04/25 10:34 04/04/25 10:34 Radiology Impressions Chest X-Ray 04/04/25 10:19 IMPRESSION: No focal lung consolidation. Head CT 04/04/25 10:19 IMPRESSION: No acute intracranial abnormality. If symptoms persist, consider further evaluation with MRI, if there are no contraindications to obtaining a MRI scan. Cervical Spine CT 04/04/25 10:31 IMPRESSION: 1. No acute bony abnormality. Degenerative changes of the cervical spine. If symptoms persist, consider further evaluation with MRI, if there are no contraindications to obtaining a MRI scan. 2. Asymmetric appearance of the piriform sinuses with relative effacement of the left side. Underlying mucosal lesion cannot be excluded. Recommend correlation with direct visualization. COMMENTS: Consistent with the [employer]'s Incidental Findings Committee white paper (J Am Johan Radiol 2015): In patients aged 35 years and older with an incidental thyroid nodule equal to or greater than 1.[address], MRI or extrathyroidal US, further evaluation with dedicated thyroid US is recommended for patients with normal life expectancy and without comorbidities. For smaller nodules without suspicious features, no further evaluation or follow up is recommended. Laboratory Results WBC 8.29 10^3/uL (3.29-11.43) 04/04/25 10:34 RBC 2.85 10^6/uL (3.85-5.65) L 04/04/25 10:34 Hgb 9.40 g/dL (11.27-16.99) L 04/04/25 10:34 Hct 28.5 % (36-47) L 04/04/25 10:34 MCV 100.0 fl (85-98) H 04/04/25 10:34 MCH 33.0 pg (27-33) 04/04/25 10:34 MCHC 33.0 g/dL (30-55) 04/04/25 10:34 RDW 15.4 % (12.1-15.1) H 04/04/25 10:34 Plt Count 423 10^3/cmm (157-399) H 04/04/25 10:34 MPV 10.0 fL (7.4-10.4) 04/04/25 10:34 Neut % (Auto) 69.9 % 04/04/25 10:34 Lymph % (Auto) 19.4 % 04/04/25 10:34 [place] % (Auto) 8.7 % 04/04/25 10:34 Eos % (Auto) 1.1 % 04/04/25 10:34 Baso % (Auto) 0.4 % 04/04/25 10:34 Neut # (Auto) 5.80 10^3/uL (1.8-7.7) 04/04/25 10:34 Lymph # (Auto) 1.6 10^3/uL (0.8-4.8) 04/04/25 10:34 [place] # (Auto) 0.7 10^3/uL (0.2-0.9) 04/04/25 10:34 Eos # (Auto) 0.1 10^3/uL (0.0-0.8) 04/04/25 10:34 Baso # (Auto) 0.0 10^3/uL (0.0-0.1) 04/04/25 10:34 Nucleated RBC % (auto) 0.2 % 04/04/25 10:34 Nucleated RBCs # 0.0 /100WBC 04/04/25 10:34 PT 18.40 SECONDS (12.1-14.9) H 04/04/25 10:34 INR 1.43 (0.8-1.2) H 04/04/25 10:34 Sodium 133 mmol/L (136-145) L 04/04/25 10:34 Potassium 3.9 mmol/L (3.5-5.1) 04/04/25 10:34 Chloride 94 mmol/L (98-107) L 04/04/25 10:34 Carbon Dioxide 28 mmol/L (22-29) 04/04/25 10:34 Anion Gap 14.9 (5-19) 04/04/25 10:34 BUN 16 mg/dL (8-23) 04/04/25 10:34 Creatinine 1.1 mg/dL (0.5-0.9) H 04/04/25 10:34 GFR Calculation Not Reportable 04/04/25 10:34 Glucose 96 mg/dL (65-115) 04/04/25 10:34 POC Glucose 104 mg/dL (70-110) 04/04/25 10:54 Calculated Osmolality 277 mOsm/kg (285-295) L 04/04/25 10:34 Calcium 9.7 mg/dL (8.5-10.5) 04/04/25 10:34 Magnesium 2.1 mg/dL (1.7-2.3) 04/04/25 10:34 Total Bilirubin 1.8 mg/dL (0.15-1.2) H 04/04/25 10:34 AST 19 U/L (0-32) 04/04/25 10:34 ALT 22 U/L (0-33) 04/04/25 10:34 Alkaline Phosphatase 109 U/L (35-105) H 04/04/25 10:34 Troponin T Baseline 28 ng/L (0-10) H 04/04/25 10:34 Total Protein 6.8 g/dL (6.6-8.7) 04/04/25 10:34 Albumin 4.4 g/dL (3.5-5.2) 04/04/25 10:34 Globulin 2.4 g/dL (1.3-4.6) 04/04/25 10:34 TSH 2.97 uIU/mL (0.27-4.20) 04/04/25 10:34 Urine Color Yellow (Yellow) 04/04/25 11:16 Urine Appearance Clear (CLEAR) 04/04/25 11:16 Urine pH 6.0 (5-7) 04/04/25 11:16 Ur Specific [place] 1.011 (1.005-1.030) 04/04/25 11:16 Urine Protein Negative (Negative) 04/04/25 11:16 Urine Glucose (UA) Negative (Normal) 04/04/25 11:16 Urine Ketones Negative (Negative) 04/04/25 11:16 Urine Blood Negative (Negative) 04/04/25 11:16 Urine Nitrate Negative (Negative) 04/04/25 11:16 Urine Bilirubin Negative (Negative) 04/04/25 11:16 Urine Urobilinogen 2.0 mg/dL (Negative) H 04/04/25 11:16 Ur Leukocyte Esterase Negative (Negative) 04/04/25 11:16 Urine RBC 0-2 /hpf (0-2) 04/04/25 11:16 Urine WBC 0-5 /hpf (0-5) 04/04/25 11:16 Ur Squamous Epith Cells 0-5 /hpf (0-5) 04/04/25 11:16 Amorphous Sediment Not Reportable 04/04/25 11:16 Urine Bacteria None seen /hpf (NONE) 04/04/25 11:16 Hyaline Casts 1.65 /lpf 04/04/25 11:16 All radiology interpretation(s) finalized by discharge EKG Data EKG 1: I personally reviewed and interpreted this EKG as follows: EKG interpretation date: 04/04/25 EKG interpretation time: 10:28 Interpretation: sinus garima hr [address] elevation qrs 112 qtc 462 Discharge Plan Discharge Patient Disposition: Admitted As Inpatient Clinical Impression: Generalized weakness Condition: Stable Coding Level of Care Code ED Package Wrapper for Alyson Dee
--- NOTE | 2025-04-04 10:28 | ECG_ITS ---
[employer] Test Date: 2025-04-04 Pat Name: Cris New Department: Room: Gender: Female [employer]: : 1945 Requested By: Linda Chapman Order Number: [id number] Reading MD: MANOHAR ALICEA Measurements Intervals [place] Rate: 57 P: 76 TN: 244 QRS: -29 QRSD: 112 T: 75 QT: 468 QTc: 458 Interpretive Statements SINUS BRADYCARDIA WITH FIRST DEGREE AV BLOCK BORDERLINE LEFT AXIS DEVIATION [QRS AXIS < -20] MODERATE INTRAVENTRICULAR CONDUCTION DELAY [110+ ms QRS DURATION] NONSPECIFIC ST & T-WAVE ABNORMALITY No previous ECG available for comparison Electronically Signed On 04-06-2025 19:06:34 CDT by MANOHAR ALICEA [email or web address]
--- NOTE | 2025-04-04 10:31 | CTR_ITS ---
PROCEDURE INFORMATION: Exam: CT Cervical Spine Without Contrast Exam date and time: 04/04/2025 10:45 AM Age: 79 years old Clinical indication: Injury or trauma; Fall; Blunt trauma TECHNIQUE: Imaging protocol: Computed tomography of the cervical spine without contrast. Radiation optimization: All CT scans at this facility use at least one of these dose optimization techniques: automated exposure control; mA and/or kV adjustment per patient size (includes targeted exams where dose is matched to clinical indication); or iterative reconstruction. COMPARISON: None RADIATION DOSE METRICS: Total DLP (mGy-cm): 209.6 FINDINGS: Bones/joints: The cervical vertebral body heights are maintained. There is a 0.2 cm anterolisthesis of C5 on C6 and C7 on T1 the facet joints are not jumped or perched. Moderate to severe disc space narrowing at C5-C6 and C6-C7. C2-C3: Spinal canal is patent. Moderate right neuroforaminal narrowing secondary to uncovertebral and facet hypertrophy. C3-C4: The spinal canal is patent. Moderate right and severe left neuroforaminal narrowing secondary to uncovertebral and facet hypertrophy. C4-C5: Spinal canal is patent. Severe right and moderate left neuroforaminal narrowing secondary to uncovertebral and facet hypertrophy. C5-C6: Broad-based disc osteophyte complex with mild central canal stenosis. Moderate bilateral neuroforaminal narrowing secondary to uncovertebral and facet hypertrophy. C6-C7: Broad-based disc osteophyte complex with mild central canal stenosis. Severe right and moderate left neuroforaminal narrowing secondary to uncovertebral and facet hypertrophy. C7-T1: No significant disc bulge or herniation. No severe spinal canal stenosis. No significant neuroforaminal narrowing. Lungs: Lung apices are normal. Soft tissues: Heterogeneous thyroid gland with nodules and calcifications. The thyroid gland would be better assessed with thyroid ultrasound if clinically warranted. Asymmetric appearance of the piriform sinuses with relative effacement of the left side. Underlying mucosal lesion cannot be excluded. Recommend correlation with direct visualization. CT/CT cervical spin wo con* [id number] IMPRESSION: 1. No acute bony abnormality. Degenerative changes of the cervical spine. If symptoms persist, consider further evaluation with MRI, if there are no contraindications to obtaining a MRI scan. 2. Asymmetric appearance of the piriform sinuses with relative effacement of the left side. Underlying mucosal lesion cannot be excluded. Recommend correlation with direct visualization. COMMENTS: Consistent with the [place] [employer]'s Incidental Findings Committee white paper (J Am Johan Radiol 2015): In patients aged 35 years and older with an incidental thyroid nodule equal to or greater than 1.[address], MRI or extrathyroidal US, further evaluation with dedicated thyroid US is recommended for patients with normal life expectancy and without comorbidities. For smaller nodules without suspicious features, no further evaluation or follow up is recommended.
[2025-04-04 10:43] LABS: Basophils % 0.4 %; Eosinophils # 0.1 10^3/uL (0.0-0.8); Eosinophils % 1.1 %; Hematocrit 28.5 % (36-47); Lymphocytes # 1.6 10^3/uL (0.8-4.8); Lymphocytes % 19.4 %; Monocytes # 0.7 10^3/uL (0.2-0.9); Monocytes % 8.7 %; Neutrophils % 69.9 %; Nucleated Red Blood Cells % 0.2 %; Platelet Count 423 10^3/cmm (157-399); Red Blood Count 2.85 10^6/uL (3.85-5.65); Red Cell Distribution Width 15.4 % (12.1-15.1); White Blood Count 8.29 10^3/uL (3.29-11.43)
[2025-04-04 10:55] LABS: INR 1.43 (0.8-1.2)
[2025-04-04 10:57] LABS: Glucose Point of Care 104 mg/dL (70-110)
[2025-04-04 10:59] LABS: Chloride 94 mmol/L (98-107); Potassium 3.9 mmol/L (3.5-5.1); Sodium 133 mmol/L (136-145)
[2025-04-04 11:02] LABS: Troponin(5th) Baseline 28 ng/L (0-10)
[2025-04-04 11:23] LABS: Alanine Aminotransferase 22 U/L (0-33); Albumin Level 4.4 g/dL (3.5-5.2); Anion Gap 14.9 (5-19); Aspartate Amino Transferase 19 U/L (0-32); Blood Urea Nitrogen 16 mg/dL (8-23); Calcium 9.7 mg/dL (8.5-10.5); Carbon Dioxide 28 mmol/L (22-29); Creatinine Clr Calc Pharmacy 41.1105; Globulin 2.4 g/dL (1.3-4.6); Glucose 96 mg/dL (65-115); Magnesium 2.1 mg/dL (1.7-2.3); Osmolality Calculated 277 mOsm/kg (285-295); Total Bilirubin 1.8 mg/dL (0.15-1.2); Total Protein 6.8 g/dL (6.6-8.7)
[2025-04-04 11:24] LABS: Alkaline Phosphatase 109 U/L (35-105); Thyroid Stimulating Hormone 2.97 uIU/mL (0.27-4.20)
[2025-04-04 11:30] LABS: Bilirubin Urine Negative (Negative); Blood Urine Negative (Negative); Glucose Urine UA Negative (Normal); Ketones Urine Negative (Negative); Leukocyte Esterase Urine Negative (Negative); Nitrate Urine Negative (Negative); Protein Urine Negative (Negative); Specific Gravity, Urine 1.011 (1.005-1.030); Urine Appearance Clear (CLEAR); Urine Color Yellow (Yellow)
[2025-04-04 11:36] LABS: Add Urine Microscopic? YES; Bacteria Urine None Seen /hpf; Hyaline Casts Urine 1.65 /lpf; RBC Urine 0-2 /hpf (0-2); Squamous Epithelial Cell Urine 0-5 /hpf (0-5); WBC Urine 0-5 /hpf (0-5)
[2025-04-04 12:23] VITALS: BP 166/77; PULSE 67; O2SAT 95
[2025-04-04 12:33] LABS: Troponin 5 2HR 21.65 ng/L (0-10)
[2025-04-04 12:38] LABS: Troponin 5 2HR Delta -6.35 ABS# (0-10)
--- NOTE | 2025-04-04 13:00 | ECG_ITS ---
[facility] Date: 2025-04-04 Pat Name: Cris New Department: Room: 276 Gender: Female Information Security: : 1945 Requested By: Linda Chapman Order Number: [id number] Reading MD: MANOHAR ALICEA Measurements Intervals [place] Rate: 60 P: 77 NM: 260 QRS: -14 QRSD: 111 T: 75 QT: 450 QTc: 451 Interpretive Statements SINUS RHYTHM WITH FIRST DEGREE AV BLOCK MODERATE INTRAVENTRICULAR CONDUCTION DELAY [110+ ms QRS DURATION] NONSPECIFIC ST & T-WAVE ABNORMALITY Compared to ECG 04/04/2025 10:28:44 Sinus bradycardia no longer present T-wave abnormality still present Electronically Signed On 04-06-2025 19:08:09 CDT by MANOHAR ALICEA [email or web address]
[2025-04-04 13:03] VITALS: BP 175/63; PULSE 63; O2SAT 100
--- NOTE | 2025-04-04 13:16 | PM.HP ---
Providers/Chief Complaint Admitting Physician: Tyson Cook MD Primary Care Provider: Jean Gibbons Chief Complaint: weakness History of Present Illness Cris New is a 79 year old female with a past medical history of atrial fibrillation, hypothyroidism, hyperlipidemia, COPD, hypertension who presents to [facility] due to weakness, fatigue. Currently patient is alert oriented x 2, following all commands, she reports recent increased weakness over the last week, she has had a fall about a week ago she has bruising along the right mu-ism and right eye, she reports more generalized weakness and focal weakness no history of strokes, no chest pain, shortness of breath no cardiovascular history she lives at home by herself, her daughter lives out of town but does help take care of her she has a neighbor who helps take care of her, she ambulates with a walker recently she has been finding that she has been having increased unsteadiness, she has had falls, denies any fevers, chills, does report intermittent dizziness, does report poor appetite, does report recent weight loss, does report taking a blood thinner for atrial fibrillation, she denies any bloody or black stools, no history of anemia, Review of Systems Const: Reports: fatigue and malaise Card: Denies: chest pain Resp: Denies: dyspnea GI: Denies: abdominal pain : Denies: flank pain Musc: Reports: back pain; Denies: neck pain Medications/Allergies Home Medications ?Medication ?Instructions ?Recorded ?Confirmed ?Last Taken ?Type fluticasone propionate 50 2 spray intranasal DAILY 08/24/20 04/04/25 04/03/25 History mcg/actuation nasal spray,suspension (Flonase Allergy Relief) hydroxyzine HCl 25 mg tablet 25 mg PO TID PRN Anxiety 08/24/20 04/04/25 Unknown History milk thistle 500 mg capsule 500 mg PO DAILY 08/24/20 04/04/25 04/03/25 History propylthiouracil 50 mg tablet 50 mg PO TID 08/24/20 04/04/25 12/12/20 20:00 History tramadol 50 mg tablet 50 mg PO Q8H PRN Pain 08/24/20 04/04/25 12/12/20 20:00 History multivitamin 1 tab PO DAILY 11/07/21 04/04/25 04/03/25 History red yeast rice 600 mg capsule 600 mg PO DAILY 03/22/22 04/04/25 04/03/25 History custom inserts #1 ea 02/22/24 04/04/25 Unknown Rx bupropion HCl 150 mg 24 hr tablet, 150 mg PO BID 04/30/24 04/04/25 04/03/25 History extended release metoprolol tartrate 50 mg tablet 50 mg PO BID #180 tabs 10/27/24 04/04/25 04/03/25 Rx amiodarone 200 mg tablet 200 mg PO DAILY 04/04/25 04/04/25 04/03/25 History apixaban 5 mg tablet (Eliquis) 5 mg PO BID 04/04/25 04/04/25 04/03/25 History betamethasone, augmented 0.05 % 1 applic topical BID PRN Skin 04/04/25 04/04/25 Unknown History topical ointment Irritation cranberry fruit 200 mg-dandelion 1 cap PO DAILY 04/04/25 04/04/25 04/03/25 History 50 mg-goldenseal 20 mg-herbs capsule (Urinary Cranberry Blend) dextromethorphan-guaifenesin 30 1 tab PO Q12H PRN Congestion 04/04/25 04/04/25 Unknown History mg-600 mg tablet extended [id number] hr (Mucinex DM) hydrochlorothiazide 12.5 mg capsule 12.5 mg PO DAILY 04/04/25 04/04/25 04/03/25 History losartan 100 mg tablet 100 mg PO DAILY 04/04/25 04/04/25 04/03/25 History ondansetron 4 mg disintegrating 4 mg PO Q8H PRN Nausea And Vomiting 04/04/25 04/04/25 Unknown History tablet vitamin B complex 1 tab PO DAILY 04/04/25 04/04/25 04/03/25 History Allergies Allergy/AdvReac Type Severity Reaction Status Date / Time citalopram (From Celexa) Allergy NA Verified 11/03/24 14:22 clarithromycin Allergy NA Verified 11/03/24 14:22 clindamycin Allergy NA Verified 11/03/24 14:22 doxepin Allergy NA Verified 11/03/24 14:22 hydrocodone Allergy NA Verified 11/03/24 14:22 ibuprofen Allergy NA Verified 11/03/24 14:22 levofloxacin Allergy NA Verified 11/03/24 14:22 lisinopril Allergy NA Verified 11/03/24 14:22 naproxen (From Aleve) Allergy NA Verified 11/03/24 14:22 Penicillins Allergy NA Verified 11/03/24 14:22 pseudoephedrine Allergy NA Verified 11/03/24 14:22 red dye Allergy NA Verified 11/03/24 14:22 Sulfa (Sulfonamide Allergy NA Verified 11/03/24 14:22 Antibiotics) venlafaxine Allergy NA Verified 11/03/24 14:22 PFSH Acute PFSH: Medical History No pertinent past medical history NEGHX:DM,DVT/PE PCP: Shai New and Amberly Lima Anxiety Hypothyroidism Family hx of colon cancer Atrial fibrillation Heart failure with reduced ejection fraction Hyperlipidemia COPD (chronic obstructive pulmonary disease) HTN (hypertension) Recurrent UTI Surgical History Hx of hysterectomy (~1985) 1985 INOCENCIO, BSO performed by Dr. Gonzalez Due to bleeding and cervical polyps S/P appendectomy S/P sinus surgery S/P cataract surgery S/P tonsillectomy S/P bunionectomy S/P cholecystectomy S/P shoulder surgery Family History Mother , 82 Breast cancer dx age later in life Denies family history of Colon cancer Ovarian cancer Diabetes Heart disease Hypercholesteremia Hypertension Uterine cancer Thyroid disease Stroke Social History Smoking and tobacco/nicotine status: former use of tobacco/nicotine Vitals/I&O/Wt Last Vital Signs Temp 98.3 F 04/04/25 10:18 Pulse 63 04/04/25 13:03 Resp 18 04/04/25 10:18 BP 175/63 04/04/25 13:03 Pulse Ox 100 04/04/25 13:03 O2 Del Method Room Air 04/04/25 12:23 Weight last 48 hrs Weight 68.039 kg Physical Exam Const: COMMON NORMALS: no acute distress and patient oriented x3 HENMT: COMMON NORMALS: normocephalic HEAD & SCALP: normocephalic Neck/C-Spine: COMMON NORMALS: no JVD Resp: COMMON NORMALS: normal respiratory effort, No retractions, No use of accessory muscles and clear to auscultation bilaterally AUSCULTATION: clear to auscultation bilaterally Cardio: COMMON NORMALS: no JVD, regular rate, regular rhythm, S1 normal heart sound present and S2 normal heart sound present RATE: regular rate RHYTHM: regular rhythm HEART SOUNDS: S1 normal heart sound present and S2 normal heart sound present GI: COMMON NORMALS: Normal to inspection, nondistended, normoactive bowel sounds present, Soft to palpation and non-tender Extremity: COMMON NORMALS: no calf tenderness and no pedal edema Neuro: COMMON NORMALS: patient oriented x3, CN's II-XII intact bilaterally, moves all extremities and no focal motor deficits Psych: COMMON NORMALS: mental status grossly normal Skin: NARRATIVE SKIN EXAM: Bruising right face, Data 04/04/25 10:34 04/04/25 10:34 A&P Assessment and plan (1) Generalized weakness: (2) Falls: (3) Acute anemia: Plan Acute anemia -Etiology unclear - Iron studies, Hemoccult stool, B12, folate - Will hold Eliquis for now - Monitor hemoglobin - Transfuse if hemoglobin less than 7 - Protonix, Carafate History of atrial fibrillation, continue amiodarone, continue metoprolol, hold Eliquis Generalized weakness, falls - Check orthostatic vitals - PT OT - History lumbar spine Bruising, right face, after fall - Eliquis on hold Full code SCDs for DVT prophylaxis PDMP PDMP Reviewed: Not Reviewed Attestations Medical Necessity Statement*: Patient requires hospitalization for acute anemia, generalized weakness, falls Diagnoses Generalized weakness R53.1 Falls R29.6 Acute anemia D64.9
[2025-04-04 13:23] VITALS: BP 179/66; PULSE 66; RESP 17; TEMP 36.5; O2SAT 98
--- NOTE | 2025-04-04 13:26 | XRR_ITS ---
PROCEDURE INFORMATION: Exam: XR Lumbosacral Spine Exam date and time: 04/04/2025 4:37 PM Age: 79 years old Clinical indication: Lumbago; Lower back pain post fall TECHNIQUE: Imaging protocol: Radiologic exam of the lumbosacral spine. Views: 2 or 3 views. COMPARISON: No relevant prior studies available. FINDINGS: Bones/joints: No acute fracture. Normal alignment. Levoscoliosis centered at the L2-L3 level. Severe multilevel disc space narrowing throughout the lumbar spine. Multilevel degenerative facet changes. Soft tissues: Aneurysmal dilation of the calcified infrarenal abdominal aorta measuring up to 3 cm in diameter. XR/XR lumbar spine 2-3V* [id number] IMPRESSION: 1. No bony abnormality. If symptoms persist, consider further evaluation with cross-sectional imaging. 2. 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
[2025-04-04 13:35] LABS: Erythrocyte Sedimentation Rate 2 mm/hr (0-15)
[2025-04-04 13:45] LABS: Lactic Sepsis W/Reflex 0.9 mmol/L (0.5-2.2)
[2025-04-04 13:49] LABS: Estmated Average Glucose 103; Hemoglobin A1C 5.2 % (4.0-6.0)
[2025-04-04 13:51] LABS: Procalcitonin 0.06 ng/mL (0-0.5)
[2025-04-04] MEDS: sodium chloride 0.9% 1,000 ML 75 ML IV (13:56)
[2025-04-04 14:02] VITALS: BMI 24.2
[2025-04-04 14:02] LABS: Chol HDL Ratio 3.26 mg/dL (0.0-4.40); Cholesterol 186 mg/dL (0-200); Ferritin 771 ng/mL (15-150); HDL Cholesterol 57 mg/dL (60-100); Iron 182 ug/dL (37-145); LDL Cholesterol Calculated 111 mg/dL (50-129); LDL HDL Ratio 1.95 RATIO (0.00-3.22); Percent Saturation 71.6 % (20-50); Total Iron Binding Capacity 254 mcg/dl; Triglycerides 91 mg/dL (0-150); Unsaturated Iron Binding 72 ug/dL (112-347); Vitamin B12 726 pg/mL (232-1245)
[2025-04-04 14:04] LABS: Folate Level 6.3 ng/mL (4.8-37.3)
[2025-04-04] MEDS: PROPYLTHIOURACIL 50 MG PO ×2 (15:43→20:19)
[2025-04-04 16:00] VITALS: BP 158/65; PULSE 63; RESP 17; TEMP 36.7; O2SAT 98
--- NOTE | 2025-04-04 16:07 | ECG_ITS ---
[facility] Date: 2025-[facility]04 Pat Name: Cris New Department: Room: 276 Gender: Female Marble Mason: : 1945 Requested By: Linda Chapman Order Number: [id number] Reading MD: MANOHAR ALICEA Measurements Intervals [place] Rate: 61 P: 73 ID: [id number] QRS: -16 QRSD: 121 T: 78 QT: 450 QTc: 456 Interpretive Statements SINUS RHYTHM WITH FIRST DEGREE AV BLOCK ANTEROSEPTAL MYOCARDIAL INFARCTION , OF INDETERMINATE AGE [40+ ms Q WAVE IN V1-V4] Compared to ECG 04/04/2025 13:00:00 Myocardial infarct finding now present Intraventricular conduction delay no longer present T-wave abnormality no longer present Electronically Signed On 04-06-2025 19:08:06 CDT by MANOHAR ALICEA [email or web address]
[2025-04-04 16:51] LABS: Troponin 5 6HR 22.71 ng/L (0-10)
[2025-04-04 16:52] LABS: Troponin 5 6HR Delta -5.29 ng/L (0-12)
[2025-04-04] MEDS: TRAMadol 50 mg Tablet PO (16:58)
[2025-04-04] MEDS: pantoprazole 40 mg SDV IVP (16:58)
[2025-04-04] MEDS: buPROPion XL (24 HR) 150 mg Tablet PO (16:58)
[2025-04-04] MEDS: metoprolol tartrate 50 mg Tablet PO (16:59)
[2025-04-04 20:00] VITALS: BP 120/63; PULSE 55; RESP 18; TEMP 36.6; O2SAT 96
[2025-04-05] VITALS (8 sets, daily range): BP systolic 134–146; BP diastolic 47–77; PULSE 55–74; RESP 16–18; TEMP 36.7–36.9; O2SAT 95–99
[2025-04-05] MEDS: TRAMadol 50 mg Tablet PO (01:41)
[2025-04-05] MEDS: sodium chloride 0.9% 1,000 ML 75 ML IV ×2 (02:41→14:08)
[2025-04-05] MEDS: efferdent effervescent 1 EACH DENTAL (02:57)
[2025-04-05 04:05] LABS: Basophils % 0.4 %; Eosinophils # 0.2 10^3/uL (0.0-0.8); Hematocrit 24.9 % (36-47); Lymphocytes # 2.6 10^3/uL (0.8-4.8); Mean Corpuscular HGB Conc 32.9 g/dL (30-55); Mean Corpuscular Volume 103.3 fl (85-98); Mean Platelet Volume 10.2 fL (7.4-10.4); Monocytes # 1.2 10^3/uL (0.2-0.9); Monocytes % 14.5 %; Neutrophils # 4.09 10^3/uL (1.8-7.7); Neutrophils % 50.6 %; Nucleated Red Blood Cells % 0.2 %; Platelet Count 348 10^3/cmm (157-399); Red Blood Count 2.41 10^6/uL (3.85-5.65); Red Cell Distribution Width 15.7 % (12.1-15.1); White Blood Count 8.07 10^3/uL (3.29-11.43)
[2025-04-05 04:29] LABS: Alanine Aminotransferase 16 U/L (0-33); Albumin Level 3.6 g/dL (3.5-5.2); Alkaline Phosphatase 87 U/L (35-105); Anion Gap 13.8 (5-19); Aspartate Amino Transferase 14 U/L (0-32); Blood Urea Nitrogen 14 mg/dL (8-23); Calcium 8.9 mg/dL (8.5-10.5); Carbon Dioxide 26 mmol/L (22-29); Chloride 97 mmol/L (98-107); Creatinine Clr Calc Pharmacy 50.2462; Globulin 1.8 g/dL (1.3-4.6); Glucose 95 mg/dL (65-115); Magnesium 1.9 mg/dL (1.7-2.3); Osmolality Calculated 276 mOsm/kg (285-295); Phosphorus 3.2 mg/dL (2.5-4.5); Potassium 3.8 mmol/L (3.5-5.1); Sodium 133 mmol/L (136-145); Total Bilirubin 1.1 mg/dL (0.15-1.2); Total Protein 5.4 g/dL (6.6-8.7)
[2025-04-05 09:05] LABS: Reticulocyte % 1.7 % (0.5-2.0)
[2025-04-05 09:21] LABS: Lactate Dehydrogenase 160 U/L (135-214)
[2025-04-05] MEDS: losartan 50 mg Tablet 100 MG PO (09:39)
[2025-04-05] MEDS: amiodarone 200 mg Tablet PO (09:40)
[2025-04-05] MEDS: buPROPion XL (24 HR) 150 mg Tablet PO ×2 (09:40→18:18)
[2025-04-05] MEDS: PROPYLTHIOURACIL 50 MG PO ×3 (09:40→21:15)
[2025-04-05 11:58] LABS: Hematocrit 25.7 % (36-47)
[2025-04-05 12:02] LABS: LAB Peripheral Smear Sent for Review
--- NOTE | 2025-04-05 17:08 | P.PN_ITS ---
Subjective 2 Subjective: Patient was seen this morning, currently alert oriented x 2, following all commands, denies any fevers, chills, no cough, does report generalized weakness Vitals/I&O/Wt Last Vital Signs Temp 98.1 F 04/05/25 17:01 Pulse 71 04/05/25 17:01 Resp 18 04/05/25 17:01 BP 144/67 04/05/25 17:01 Pulse Ox 98 04/05/25 17:01 O2 Del Method Room Air 04/05/25 12:12 04/05/25 04/05/25 04/05/25 06:59 14:59 22:59 Intake Total 956.25 / 1196.25 1338.75 / 1338.75 Balance 956.25 / 1196.25 1338.75 / 1338.75 Weight last 48 hrs Weight 67.631 kg Weight 68.039 kg Weight 68.039 kg Physical Exam 2 Const: COMMON NORMALS: no acute distress ORIENTATION/CONSCIOUSNESS: Yes awake, Yes oriented to person and Yes oriented to place Resp: COMMON NORMALS: normal respiratory effort, No retractions, No use of accessory muscles and clear to auscultation bilaterally AUSCULTATION: clear to auscultation bilaterally Cardio: COMMON NORMALS: regular rate, regular rhythm, S1 normal heart sound present and S2 normal heart sound present RATE: regular rate RHYTHM: r egular rhythm HEART SOUNDS: S1 normal heart sound present and S2 normal heart sound present GI: COMMON NORMALS: Normal to inspection, nondistended, normoactive bowel sounds present, Soft to palpation and non-tender PALPATION: Yes Soft to palpation Extremity: COMMON NORMALS: no pedal edema Neuro: SENSORIUM/ORIENTATION: Yes oriented to person and Yes oriented to place Data 04/05/25 11:41 04/05/25 03:36 Micro: Microbiology 04/05/25 02:50 Occult Blood (FIT) - Final Stool Routine Collection A&P Assessment and plan (1) Generalized weakness: (2) Falls: (3) Acute anemia: Plan Acute anemia, down to 8.2 -Etiology unclear - Iron studies within normal limits, Hemoccult stool negative for blood, B12, folate within normal limits - Will hold Eliquis for now -Potentially bone marrow pathology, such as myelodysplastic syndrome - Monitor hemoglobin - Transfuse if hemoglobin less than 7 - Protonix, Carafate History of atrial fibrillation, continue amiodarone, continue metoprolol, hold Eliquis Generalized weakness, falls - Check orthostatic vitals - PT OT - History lumbar spine Bruising, right face, after fall - Eliquis on hold Full code SCDs for DVT prophylaxis PDMP PDMP Reviewed: Not Reviewed Attestations 2 Medical Necessity Statement*: Patient requires hospitalization for acute anemia Diagnoses Generalized weakness R53.1 Falls R29.6 Acute anemia D64.9
[2025-04-05] MEDS: pantoprazole 40 mg SDV IVP (18:17)
[2025-04-05] MEDS: metoprolol tartrate 50 mg Tablet PO (18:18)
[2025-04-06] VITALS (8 sets, daily range): BP systolic 149–163; BP diastolic 55–63; PULSE 59–66; RESP 14–18; TEMP 36.6–37; O2SAT 93–98
[2025-04-06] MEDS: sodium chloride 0.9% 1,000 ML 75 ML IV ×2 (03:32→14:59)
[2025-04-06 06:20] LABS: Basophils % 0.4 %; Eosinophils # 0.3 10^3/uL (0.0-0.8); Eosinophils % 3.7 %; Hematocrit 23.7 % (36-47); Lymphocytes # 2.4 10^3/uL (0.8-4.8); Lymphocytes % 36.5 %; Mean Corpuscular HGB Conc 32.9 g/dL (30-55); Mean Corpuscular Hemoglobin 34.1 pg (27-33); Mean Corpuscular Volume 103.5 fl (85-98); Mean Platelet Volume 10.3 fL (7.4-10.4); Monocytes # 0.9 10^3/uL (0.2-0.9); Monocytes % 12.9 %; Neutrophils # 3.06 10^3/uL (1.8-7.7); Neutrophils % 45.9 %; Nucleated Red Blood Cells % 0 %; Platelet Count 329 10^3/cmm (157-399); Red Blood Count 2.29 10^6/uL (3.85-5.65); Red Cell Distribution Width 15.8 % (12.1-15.1); White Blood Count 6.68 10^3/uL (3.29-11.43)
[2025-04-06 06:42] LABS: Alanine Aminotransferase 16 U/L (0-33); Albumin Level 3.4 g/dL (3.5-5.2); Alkaline Phosphatase 81 U/L (35-105); Anion Gap 11.8 (5-19); Aspartate Amino Transferase 15 U/L (0-32); Blood Urea Nitrogen 8 mg/dL (8-23); Calcium 8.6 mg/dL (8.5-10.5); Carbon Dioxide 26 mmol/L (22-29); Chloride 103 mmol/L (98-107); Creatinine Clr Calc Pharmacy 56.3635; Globulin 1.8 g/dL (1.3-4.6); Glucose 89 mg/dL (65-115); Magnesium 1.8 mg/dL (1.7-2.3); Osmolality Calculated 282 mOsm/kg (285-295); Phosphorus 2.7 mg/dL (2.5-4.5); Potassium 3.8 mmol/L (3.5-5.1); Sodium 137 mmol/L (136-145); Total Bilirubin 0.9 mg/dL (0.15-1.2); Total Protein 5.2 g/dL (6.6-8.7)
--- NOTE | 2025-04-06 08:39 | PC.SOCIAL ---
IMM Update Pg. 2 of IMM updated. Copy provided at bedside.
[2025-04-06] MEDS: amiodarone 200 mg Tablet PO (10:03)
[2025-04-06] MEDS: PROPYLTHIOURACIL 50 MG PO ×3 (10:03→20:49)
[2025-04-06] MEDS: metoprolol tartrate 50 mg Tablet PO ×2 (10:03→17:35)
[2025-04-06] MEDS: buPROPion XL (24 HR) 150 mg Tablet PO ×2 (10:03→17:34)
[2025-04-06] MEDS: losartan 50 mg Tablet 100 MG PO (10:03)
--- NOTE | 2025-04-06 15:11 | P.PN_ITS ---
Subjective 2 Subjective: Patient reports weakness and fatigue, no fevers, chills, no cough, we discussed her anemia hemoglobin down to 7.8, no reported blood or black stools, her Hemoccult stool was negative, I am highly suspicious that her anemia is likely related to bone marrow pathology such as myelodysplastic syndrome and she will need to follow-up with clinical social work therapist as outpatient for consideration of bone biopsy, she tells me that she is working more to get up on her own to get to the bathroom Vitals/I&O/Wt Last Vital Signs Temp 98.3 F 04/06/25 11:26 Pulse 64 04/06/25 11:26 Resp 15 04/06/25 11:26 BP 149/63 04/06/25 11:26 Pulse Ox 98 04/06/25 11:26 O2 Del Method Room Air 04/06/25 11:26 04/06/25 04/06/25 04/06/25 06:59 14:59 22:59 Intake Total 1240 / 3058.75 1098.75 / 1098.75 Balance 1240 / 3058.75 1098.75 / 1098.75 Weight last 48 hrs Weight 67.585 kg Weight 67.631 kg Physical Exam 2 Const: COMMON NORMALS: no acute distress and patient oriented x3 Resp: COMMON NORMALS: normal respiratory effort, No retractions, No use of accessory muscles and clear to auscultation bilaterally AUSCULTATION: clear to auscultation bilaterally Cardio: COMMON NORMALS: regular rate, regular rhythm, S1 normal heart sound present and S2 normal heart sound present RATE: regular rate RHYTHM: r egular rhythm HEART SOUNDS: S1 normal heart sound present and S2 normal heart sound present GI: COMMON NORMALS: Normal to inspection, nondistended, normoactive bowel sounds present and non-tender Extremity: COMMON NORMALS: no pedal edema Neuro: COMMON NORMALS: patient oriented x3 Psych: COMMON NORMALS: mental status grossly normal Data 04/06/25 05:40 04/06/25 05:40 A&P Assessment and plan (1) Generalized weakness: (2) Falls: (3) Acute anemia: Plan Acute anemia, down to 8.2 -Etiology unclear - Iron studies within normal limits, Hemoccult stool negative for blood, B12, folate within normal limits - Will hold Eliquis for now -Potentially bone marrow pathology, such as myelodysplastic syndrome - Monitor hemoglobin - Transfuse if hemoglobin less than 7 - Protonix, Carafate History of atrial fibrillation, continue amiodarone, continue metoprolol, hold Eliquis - Discussed with patient the risk and benefits of holding anticoagulant therapy, she voiced understanding, all question answered, agreed to proceed Generalized weakness, falls - Check orthostatic vitals, within normal limits - PT OT Bruising, right face, after fall - Eliquis on hold Full code SCDs for DVT prophylaxis PDMP PDMP Reviewed: Not Reviewed Attestations 2 Medical Necessity Statement*: Patient requires hospitalization for acute anemia Diagnoses Generalized weakness R53.1 Falls R29.6 Acute anemia D64.9
[2025-04-06 17:01] LABS: Hematocrit 24.8 % (36-47)
[2025-04-06] MEDS: pantoprazole 40 mg SDV IVP (17:34)
[2025-04-07] VITALS (7 sets, daily range): BP systolic 137–156; BP diastolic 58–63; PULSE 54–73; RESP 15–18; TEMP 36.6–36.8; O2SAT 94–98
[2025-04-07 05:32] LABS: Basophils % 0.5 %; Eosinophils # 0.4 10^3/uL (0.0-0.8); Eosinophils % 5.1 %; Hematocrit 26.5 % (36-47); Lymphocytes # 2.9 10^3/uL (0.8-4.8); Lymphocytes % 36.6 %; Mean Corpuscular HGB Conc 32.8 g/dL (30-55); Mean Corpuscular Hemoglobin 34.1 pg (27-33); Mean Corpuscular Volume 103.9 fl (85-98); Mean Platelet Volume 10.1 fL (7.4-10.4); Monocytes # 0.9 10^3/uL (0.2-0.9); Monocytes % 11.1 %; Neutrophils # 3.66 10^3/uL (1.8-7.7); Neutrophils % 46.3 %; Nucleated Red Blood Cells % 0.4 %; Platelet Count 387 10^3/cmm (157-399); Red Blood Count 2.55 10^6/uL (3.85-5.65); Red Cell Distribution Width 15.8 % (12.1-15.1)
[2025-04-07 05:48] LABS: Alanine Aminotransferase 24 U/L (0-33); Albumin Level 3.7 g/dL (3.5-5.2); Alkaline Phosphatase 94 U/L (35-105); Anion Gap 13.1 (5-19); Aspartate Amino Transferase 17 U/L (0-32); Blood Urea Nitrogen 6 mg/dL (8-23); Calcium 9.1 mg/dL (8.5-10.5); Carbon Dioxide 26 mmol/L (22-29); Chloride 103 mmol/L (98-107); Globulin 2.3 g/dL (1.3-4.6); Glucose 96 mg/dL (65-115); Magnesium 1.9 mg/dL (1.7-2.3); Osmolality Calculated 283 mOsm/kg (285-295); Phosphorus 2.9 mg/dL (2.5-4.5); Potassium 4.1 mmol/L (3.5-5.1); Sodium 138 mmol/L (136-145); Total Bilirubin 0.9 mg/dL (0.15-1.2)
[2025-04-07] MEDS: buPROPion XL (24 HR) 150 mg Tablet PO (08:32)
[2025-04-07] MEDS: losartan 50 mg Tablet 100 MG PO (08:32)
[2025-04-07] MEDS: PROPYLTHIOURACIL 50 MG PO (08:32)
[2025-04-07] MEDS: amiodarone 200 mg Tablet PO (08:32)
--- NOTE | 2025-04-07 09:32 | PC.NURSE ---
Addendum entered by Jessica Danielle LPN 04/07/25 11:21: Pt taken to discharge room via wheelchair to await arrival of daughter. Addendum entered by Jessica Danielle LPN 04/07/25 10:38: This nurse called patients daughter that was listed in her chart. She said she is able to pick pt up. Original Note: Pt is calling to see if she can get family to pick her up before having us set her up a ride home. D/C pending this.
--- NOTE | 2025-04-07 10:18 | PM.DCS ---
Discharge Providers Date of Admission: 04/04/25 12:10 Date of Discharge: April 07, 2025 Attending Provider at Admission: Tyson Cook MD Attending Provider at Discharge: Tyson Cook MD Primary Care Provider: Jean Gibbons Diagnoses at Discharge Discharge Diagnosis (1) Generalized weakness: Status: Acute (2) Falls: Status: Acute (3) Acute anemia: Status: Acute Reason for Visit Reason for Visit: weakness Hospital Course Hospital Course Cris New is a 79 year old female with a past medical history of atrial fibrillation, hypothyroidism, hyperlipidemia, COPD, hypertension who presents to [facility] due to weakness, fatigue. Currently patient is alert oriented x 2, following all commands, she reports recent increased weakness over the last week, she has had a fall about a week ago she has bruising along the right jew and right eye, she reports more generalized weakness and focal weakness no history of strokes, no chest pain, shortness of breath no cardiovascular history she lives at home by herself, her daughter lives out of town but does help take care of her she has a neighbor who helps take care of her, she ambulates with a walker recently she has been finding that she has been having increased unsteadiness, she has had falls, denies any fevers, chills, does report intermittent dizziness, does report poor appetite, does report recent weight loss, does report taking a blood thinner for atrial fibrillation, she denies any bloody or black stools, no history of anemia, Patient was admitted to [facility] for generalized weakness, likely secondary to acute on chronic anemia, deconditioning. Deconditioning, she received inpatient physical therapy, overall clinically improved, patient declines senior living facility placement, she tells me that she lives at home by herself, does have friends check up on her, declines any other home services, she will be discharged home, discussed with her emergency plans for falls/etc., follow-up with primary care For her acute anemia, findings concerning for bone marrow pathology such as myelodysplastic syndrome. Patient's iron levels and ferritin levels were elevated, MCV elevated 103.9, denies bloody or black stools, reticulocyte count 1.7, Hemoccult stool negative. Will have her follow-up with hematology and oncology as outpatient, for further workup including bone marrow biopsy. Follow-up with general surgery for consideration of EGD and colonoscopy. Patient is on Eliquis therapy, although her Hemoccult stools are negative, with her acute anemia hemoglobin is low 7.8. Discussed with her the morbidity and mortality associated with acute anemia, especially while taking Eliquis. Did discuss also the risk and benefits of taking Eliquis therapy. Certainly this is difficult decision to make, shared decision making, discussed risk and benefits of all options, she voiced understanding, all questions answered, agreed to hold Eliquis for now until further workup has been completed by hematology/oncology and general surgery. Patient was advised if she were to have any strokelike symptoms immediately call 911 Physical Exam Const: COMMON NORMALS: no acute distress and patient oriented x3 Resp: COMMON NORMALS: normal respiratory effort, No retractions, No use of accessory muscles and clear to auscultation bilaterally AUSCULTATION: clear to auscultation bilaterally Cardio: COMMON NORMALS: regular rate, regular rhythm, S1 normal heart sound present and S2 normal heart sound present RATE: regular rate RHYTHM: regular rhythm HEART SOUNDS: S1 normal heart sound present and S2 normal heart sound present GI: COMMON NORMALS: Normal to inspection, nondistended, normoactive bowel sounds present and non-tender Extremity: COMMON NORMALS: no pedal edema Neuro: COMMON NORMALS: patient oriented x3 Psych: COMMON NORMALS: mental status grossly normal Discharge Data Studies Completed and Pending Completed Studies During Hospitalization Category Date Time Status CT cervical spin wo con* [id number] Stat Cat Scan 04/04/25 10:[address] head wo con* [id number] Stat Cat Scan 04/04/25 10:19 Completed XR chest 1V portable [id number] Stat Exams 04/04/25 10:19 Completed XR lumbar spine 2-3V* [id number] Routine Exams 04/04/25 13:26 Completed Radiology Impressions Chest X-Ray 04/04/25 10:19 IMPRESSION: No focal lung consolidation. Head CT 04/04/25 10:19 IMPRESSION: No acute intracranial abnormality. If symptoms persist, consider further evaluation with MRI, if there are no contraindications to obtaining a MRI scan. Cervical Spine CT 04/04/25 10:31 IMPRESSION: 1. No acute bony abnormality. Degenerative changes of the cervical spine. If symptoms persist, consider further evaluation with MRI, if there are no contraindications to obtaining a MRI scan. 2. Asymmetric appearance of the piriform sinuses with relative effacement of the left side. Underlying mucosal lesion cannot be excluded. Recommend correlation with direct visualization. COMMENTS: Consistent with the [place] [employer]'s Incidental Findings Committee white paper (J Am Johan Radiol 2015): In patients aged 35 years and older with an incidental thyroid nodule equal to or greater than 1.[address], MRI or extrathyroidal US, further evaluation with dedicated thyroid US is recommended for patients with normal life expectancy and without comorbidities. For smaller nodules without suspicious features, no further evaluation or follow up is recommended. Lumbar Spine X-Ray 04/04/25 13:26 IMPRESSION: 1. No bony abnormality. If symptoms persist, consider further evaluation with cross-sectional imaging. 2. 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 Laboratory Results WBC 7.90 10^3/uL (3.29-11.43) 04/07/25 05:08 RBC 2.55 10^6/uL (3.85-5.65) L 04/07/25 05:08 Hgb 8.70 g/dL (11.27-16.99) L 04/07/25 05:08 Hct 26.5 % (36-47) L 04/07/25 05:08 MCV 103.9 fl (85-98) H 04/07/25 05:08 MCH 34.1 pg (27-33) H 04/07/25 05:08 MCHC 32.8 g/dL (30-55) 04/07/25 05:08 RDW 15.8 % (12.1-15.1) H 04/07/25 05:08 Plt Count 387 10^3/cmm (157-399) 04/07/25 05:08 MPV 10.1 fL (7.4-10.4) 04/07/25 05:08 Neut % (Auto) 46.3 % 04/07/25 05:08 Lymph % (Auto) 36.6 % 04/07/25 05:08 [place] % (Auto) 11.1 % 04/07/25 05:08 Eos % (Auto) 5.1 % 04/07/25 05:08 Baso % (Auto) 0.5 % 04/07/25 05:08 Reticulocyte % (Auto) 1.7 % (0.5-2.0) 04/05/25 03:36 Neut # (Auto) 3.66 10^3/uL (1.8-7.7) 04/07/25 05:08 Lymph # (Auto) 2.9 10^3/uL (0.8-4.8) 04/07/25 05:08 [place] # (Auto) 0.9 10^3/uL (0.2-0.9) 04/07/25 05:08 Eos # (Auto) 0.4 10^3/uL (0.0-0.8) 04/07/25 05:08 Baso # (Auto) 0.0 10^3/uL (0.0-0.1) 04/07/25 05:08 Nucleated RBC % (auto) 0.4 % 04/07/25 05:08 Nucleated RBCs # 0.0 /100WBC 04/07/25 05:08 Peripher Smr Path Cons Sent for review 04/05/25 11:41 ESR 2 mm/hr (0-15) 04/04/25 10:34 Haptoglobin 93.0 mg/L (30-200) 04/05/25 03:36 PT 18.40 SECONDS (12.1-14.9) H 04/04/25 10:34 INR 1.43 (0.8-1.2) H 04/04/25 10:34 Sodium 138 mmol/L (136-145) 04/07/25 05:08 Potassium 4.1 mmol/L (3.5-5.1) 04/07/25 05:08 Chloride 103 mmol/L (98-107) 04/07/25 05:08 Carbon Dioxide 26 mmol/L (22-29) 04/07/25 05:08 Anion Gap 13.1 (5-19) 04/07/25 05:08 BUN 6 mg/dL (8-23) L 04/07/25 05:08 Creatinine 0.7 mg/dL (0.5-0.9) 04/07/25 05:08 GFR Calculation Not Reportable 04/07/25 05:08 Glucose 96 mg/dL (65-115) 04/07/25 05:08 POC Glucose 104 mg/dL (70-110) 04/04/25 10:54 Estimat Average Glucose 103 04/04/25 10:34 Hemoglobin A1c 5.2 % (4.0-6.0) 04/04/25 10:34 Calculated Osmolality 283 mOsm/kg (285-295) L 04/07/25 05:08 Lactic Acid 0.9 mmol/L (0.5-2.2) 04/04/25 10:34 Calcium 9.1 mg/dL (8.5-10.5) 04/07/25 05:08 Phosphorus 2.9 mg/dL (2.5-4.5) 04/07/25 05:08 Magnesium 1.9 mg/dL (1.7-2.3) 04/07/25 05:08 Iron 182 ug/dL (37-145) H 04/04/25 10:34 TIBC 254 mcg/dl 04/04/25 10:34 % Saturation 71.6 % (20-50) H 04/04/25 10:34 Unsat Iron Binding 72 ug/dL (112-347) L 04/04/25 10:34 Ferritin 771 ng/mL (15-150) H 04/04/25 10:34 Total Bilirubin 0.9 mg/dL (0.15-1.2) 04/07/25 05:08 AST 17 U/L (0-32) 04/07/25 05:08 ALT 24 U/L (0-33) 04/07/25 05:08 Alkaline Phosphatase 94 U/L (35-105) 04/07/25 05:08 Lactate Dehydrogenase 160 U/L (135-214) 04/05/25 03:36 Troponin T Baseline 28 ng/L (0-10) H 04/04/25 10:34 Troponin T 120 Minute 21.65 ng/L (0-10) H 04/04/25 12:10 Delta Troponin T -6.35 ABS# (0-10) L 04/04/25 12:10 Troponin T Hi Sens 6Hr 22.71 ng/L (0-10) H 04/04/25 16:22 Troponin T Hi Sens 6Hr Delta -5.29 ng/L (0-12) L 04/04/25 16:22 C-Reactive Protein 3.0 mg/L (0.0-4.9) 04/04/25 10:34 Total Protein 6.0 g/dL (6.6-8.7) L 04/07/25 05:08 Albumin 3.7 g/dL (3.5-5.2) 04/07/25 05:08 Globulin 2.3 g/dL (1.3-4.6) 04/07/25 05:08 Triglycerides 91 mg/dL (0-150) 04/04/25 10:34 Cholesterol 186 mg/dL (0-200) 04/04/25 10:34 LDL Cholesterol, Calc 111 mg/dL (50-129) 04/04/25 10:34 HDL Cholesterol 57 mg/dL (60-100) L 04/04/25 10:34 LDL/HDL Ratio 1.95 RATIO (0.00-3.22) 04/04/25 10:34 Cholesterol/HDL Ratio 3.26 mg/dL (0.0-4.40) 04/04/25 10:34 Vitamin B12 726 pg/mL (232-1245) 04/04/25 10:34 Folate 6.3 ng/mL (4.8-37.3) 04/04/25 10:34 Procalcitonin 0.06 ng/mL (0-0.5) 04/04/25 10:34 TSH 2.97 uIU/mL (0.27-4.20) 04/04/25 10:34 TSH Cancelled 04/04/25 10:34 Urine Color Yellow (Yellow) 04/04/25 11:16 Urine Appearance Clear (CLEAR) 04/04/25 11:16 Urine pH 6.0 (5-7) 04/04/25 11:16 Ur Specific Coleman 1.011 (1.005-1.030) 04/04/25 11:16 Urine Protein Negative (Negative) 04/04/25 11:16 Urine Glucose (UA) Negative (Normal) 04/04/25 11:16 Urine Ketones Negative (Negative) 04/04/25 11:16 Urine Blood Negative (Negative) 04/04/25 11:16 Urine Nitrate Negative (Negative) 04/04/25 11:16 Urine Bilirubin Negative (Negative) 04/04/25 11:16 Urine Urobilinogen 2.0 mg/dL (Negative) H 04/04/25 11:16 Ur Leukocyte Esterase Negative (Negative) 04/04/25 11:16 Urine RBC 0-2 /hpf (0-2) 04/04/25 11:16 Urine WBC 0-5 /hpf (0-5) 04/04/25 11:16 Ur Squamous Epith Cells 0-5 /hpf (0-5) 04/04/25 11:16 Amorphous Sediment Not Reportable 04/04/25 11:16 Urine Bacteria None seen /hpf (NONE) 04/04/25 11:16 Hyaline Casts 1.65 /lpf 04/04/25 11:16 Vitals Last Vital Signs Temp 97.8 F 04/07/25 07:11 Pulse 54 L 04/07/25 07:11 Resp 15 04/07/25 07:11 BP 155/58 04/07/25 08:32 Pulse Ox 98 04/07/25 07:11 O2 Del Method Room Air 04/07/25 07:11 Discharge Plan Discharge Patient Disposition: Home Condition: Stable Prescriptions: Continued multivitamin Tablet 1 tab PO DAILY propylthiouracil 50 mg tablet 50 mg PO TID tramadol 50 mg tablet 50 mg PO Q8H PRN (Reason: Pain) hydroxyzine HCl 25 mg tablet 25 mg PO TID PRN (Reason: Anxiety) fluticasone propionate [Flonase Allergy Relief] 50 mcg/actuation spray,suspension 2 spray INTRANASAL DAILY Rx Instructions: administer into each nostril milk thistle 500 mg capsule 500 mg PO DAILY Rx Instructions: give with meal/snack red yeast rice 600 mg capsule 600 mg PO DAILY Rx Instructions: give with meal/snack bupropion HCl 150 mg tablet extended release 24 hr 150 mg PO BID (DME) custom inserts See Rx Instructions .Route .MEDSUPPLY Qty: 1 0RF Rx Instructions: As directed metoprolol tartrate 50 mg tablet 50 mg PO BID Qty: 180 3RF amiodarone 200 mg tablet 200 mg PO DAILY hydrochlorothiazide 12.5 mg capsule 12.5 mg PO DAILY vitamin B complex Tablet 1 tab PO DAILY Mucinex DM 30-600 mg Tablet Extended Release 12 Hr 1 tab PO Q12H PRN (Reason: Congestion) ondansetron 4 mg tablet,disintegrating 4 mg PO Q8H PRN (Reason: Nausea And Vomiting) losartan 100 mg tablet 100 mg PO DAILY Urinary Cranberry Blend 200-50-20 mg Capsule 1 cap PO DAILY betamethasone, augmented 0.05 % ointment 1 applic topical BID PRN (Reason: Skin Irritation) Held Eliquis 5 mg tablet 5 mg PO BID Hold Instructions: Resume on 04/27/25. hold until you see hematology Discharge Orders: Discharge Order (Routine); Ordered 04/07/25 Ordered By: Tyson Cook Referrals: Marilyn Jerez [Other, Oncology & Hematology] Referral Note: We have notified your physician's clinic of the need for a follow-up appointment to be scheduled. If you have not heard from them within the next 2 business days, please call them directly SENT REFERRAL. Problems: Acute anemia Giovani Peterson MD [Physician, General Surgery] - 2 weeks Referral Note: egd and [facility] We have notified your physician's clinic of the need for a follow-up appointment to be scheduled. If you have not heard from them within the next 2 business days, please call them directly. Indira Gaona MD [Hospitalist, Oncology] - 2 weeks Referral Note: anemia We have notified your physician's clinic of the need for a follow-up appointment to be scheduled. If you have not heard from them within the next 2 business days, please call them directly. Jean Gibbons [Primary Care Provider, Family Practice] Referral Note: We have notified your physician's clinic of the need for a follow-up appointment to be scheduled. If you have not heard from them within the next 2 business days, please call them directly. Discharge Diet: Cardiac Discharge Activity: Resume usual activity Patient Instructions: Anemia, Opioid Safety, Weakness (Generalized) Activity Restrictions/Additional Instructions: -if any stroke like symptoms please call 911 Discharge Attestations Time Spent in Discharge Care*: greater than 30 min Quality Metrics Clinical Quality Measures [ No reported AMI, CVA or VTE this stay] Coding Level of Care Code 59546 Total time (in minutes) for Discharge: 45 Diagnoses Generalized weakness R53.1 Falls R29.6 Acute anemia D64.9
== END 2025-04-07 11:23 | disposition home or self-care (01) | DRG 812 ==
LOC: ER 12:09 → MEDSURG 12:55
PROVIDERS: Admitting Provider Family Medicine; Emergency Provider Emergency Medicine; PCP Family Medicine; Visit Provider Family Medicine
DX: D64.9 Anemia, unspecified (principal); I50.20 Unspecified systolic (congestive) heart failure; S00.83XA Contusion of other part of head, initial encounter; W01.0XXA Fall on same level from slipping, tripping and stumbling without subsequent striking against object, initial encounter; R53.1 Weakness; I48.91 Unspecified atrial fibrillation; E03.9 Hypothyroidism, unspecified; E78.5 Hyperlipidemia, unspecified; J44.9 Chronic obstructive pulmonary disease, unspecified; I11.0 Hypertensive heart disease with heart failure; Z91.81 History of falling; Z79.891 Long term (current) use of opiate analgesic; Z87.891 Personal history of nicotine dependence
CPT/HCPCS: 36415; 36416; 70450; 71045; 72100; 72125; 80053; 80061; 80503; 81001; 82274; 82607; 82728; 82746; 82962; 83010; 83036; 83540; 83550; 83605; 83615; 83735; 84100; 84145; 84443; 84484; 85014; 85018; 85025; 85045; 85610; 85651; 86140; 93005; 94664; 97116; 97161; 97165; 97530; 97535; 99285; J2470; J7030; J9999

== ENCOUNTER 2025-04-13 09:11 | Oncology outpatient (recurring) (ONCR) | payer MEDICARE, OTHER, SELFPAY | END 2025-05-11 23:59 | disposition home or self-care (01) | PROVIDERS: PCP Family Medicine; Visit Provider Internal Medicine Medical Oncology | DX: D64.9 Anemia, unspecified (principal); Z87.891 Personal history of nicotine dependence | CPT/HCPCS: 99204 ==

== ENCOUNTER → 2025-05-13 10:14 | Outpatient (BNVA) | payer MEDICARE, OTHER, SELFPAY | PROVIDERS: PCP Family Medicine; Visit Provider Nurse Practitioner Family | DX: I48.0 Paroxysmal atrial fibrillation (principal); Z79.01 Long term (current) use of anticoagulants; I11.0 Hypertensive heart disease with heart failure; I50.20 Unspecified systolic (congestive) heart failure; I35.1 Nonrheumatic aortic (valve) insufficiency; D64.9 Anemia, unspecified; Z87.891 Personal history of nicotine dependence; I48.91 Unspecified atrial fibrillation | CPT/HCPCS: 36415; 80048; 85025; 99214 ==

== ENCOUNTER 2025-05-25 15:32 | Oncology outpatient (recurring) (ONCR) | payer MEDICARE, OTHER, SELFPAY | END 2025-05-25 23:59 | disposition home or self-care (01) | PROVIDERS: PCP Family Medicine; Visit Provider Internal Medicine Medical Oncology | DX: D46.Z Other myelodysplastic syndromes (principal) | CPT/HCPCS: 36415 ==

== ENCOUNTER 2025-06-02 16:00 | Oncology outpatient (recurring) (ONCR) | payer MEDICARE, OTHER, SELFPAY ==
[2025-05-27 09:03] LABS: Hematocrit 22.1 % (36-47); Hemoglobin 7.20 g/dL (11.27-16.99); Mean Corpuscular HGB Conc 32.6 g/dL (30-55); Mean Corpuscular Hemoglobin 33.0 pg (27-33); Mean Corpuscular Volume 101.4 fl (85-98); Nucleated Red Blood Cells % 0.4 %; Platelet Count 378 10^3/cmm (157-399); Red Blood Count 2.18 10^6/uL (3.85-5.65); White Blood Count 8.04 10^3/uL (3.29-11.43)
[2025-05-27 09:41] VITALS: BP 136/58; PULSE 52; RESP 18; TEMP 36; O2SAT 98
[2025-05-27 09:42] VITALS: BP 136/58; PULSE 52; RESP 18; TEMP 36.1; O2SAT 98
[2025-05-27 10:00] VITALS: BP 143/54; PULSE 52; RESP 17; TEMP 36.8; O2SAT 98
[2025-05-27 10:15] VITALS: BP 126/56; PULSE 52; RESP 17; TEMP 36.3; O2SAT 99
[2025-05-27 10:45] VITALS: BP 128/53; PULSE 54; RESP 17; TEMP 36.7; O2SAT 95
[2025-05-27 11:40] VITALS: BP 140/62; PULSE 54; RESP 17; TEMP 36.8; O2SAT 94
[2025-06-02] MEDS: luspatercept-aamt 75 mg 64.5 MG SUBCUT (16:31)
[2025-06-02 16:39] VITALS: BP 135/54; PULSE 58; RESP 16; TEMP 36.5; O2SAT 98
== END 2025-06-02 23:59 | disposition home or self-care (01) ==
PROVIDERS: Internal Medicine Medical Oncology; PCP Family Medicine; Visit Provider Internal Medicine
DX: Z53.9 Procedure and treatment not carried out, unspecified reason; D46.Z Other myelodysplastic syndromes; Z79.899 Other long term (current) drug therapy
CPT/HCPCS: 36430; 85025; 86850; 86900; 86920; 96372; 99214; J0896; J7050; J9999; P9016

== ENCOUNTER 2025-06-23 07:58 | Oncology outpatient (recurring) (ONCR) | payer MEDICARE, OTHER, SELFPAY ==
[2025-06-23 08:23] LABS: Hematocrit 32.5 % (36-47); Hemoglobin 10.80 g/dL (11.27-16.99); Mean Corpuscular HGB Conc 33.2 g/dL (30-55); Mean Corpuscular Hemoglobin 32.3 pg (27-33); Mean Corpuscular Volume 97.3 fl (85-98); Nucleated Red Blood Cells % 0.3 %; Platelet Count 449 10^3/cmm (157-399); Red Blood Count 3.34 10^6/uL (3.85-5.65); White Blood Count 11.25 10^3/uL (3.29-11.43)
[2025-06-23 08:38] LABS: Alanine Aminotransferase 23 U/L (0-33); Albumin Level 4.0 g/dL (3.5-5.2); Alkaline Phosphatase 90 U/L (35-105); Anion Gap 10.9 (5-19); Aspartate Amino Transferase 22 U/L (0-32); Blood Urea Nitrogen 13 mg/dL (8-23); Calcium 9.3 mg/dL (8.5-10.5); Carbon Dioxide 29 mmol/L (22-29); Chloride 93 mmol/L (98-107); Creatinine Clr Calc Pharmacy 42.8094; Globulin 2.3 g/dL (1.3-4.6); Glucose 104 mg/dL (65-115); Osmolality Calculated 268 mOsm/kg (285-295); Potassium 3.9 mmol/L (3.5-5.1); Sodium 129 mmol/L (136-145); Total Protein 6.3 g/dL (6.6-8.7)
[2025-06-23] MEDS: luspatercept-aamt 75 mg 62 MG SUBCUT (09:41)
[2025-06-23 09:45] VITALS: BP 151/67; PULSE 68; RESP 16; TEMP 36.8; O2SAT 96
== END 2025-06-23 23:59 | disposition home or self-care (01) ==
PROVIDERS: PCP Family Medicine; Visit Provider Internal Medicine Medical Oncology
DX: D46.Z Other myelodysplastic syndromes (principal); Z87.891 Personal history of nicotine dependence; E87.1 Hypo-osmolality and hyponatremia; Z79.899 Other long term (current) drug therapy
CPT/HCPCS: 36415; 80053; 85025; 96372; 99214; J0896

== ENCOUNTER 2025-07-11 16:43 | Emergency (ER) | payer MEDICARE, OTHER, SELFPAY ==
--- OUTSIDE RECORDS SUMMARY | 2002-06-19 03:51 | XMS_ITS | Continuity of Care Document ---
Author Name [facility] Organization [facility] Care Team Providers Care Joint Machine Operator Name Role Phone [facility] Unavailable Unavailable Problems Combined list of problems from [facility] and [facility] facilities. It does not include entries that were removed or entered in error. Problem Status Onset Date Problem Type Date of Resolution Comments Source Allergic Rhinitis NEC (ICD-9-CM 477.8) Active Condition [facility] DEPRESSIVE DISORDER NEC Active Condition [facility] Hyperlipidemia * (ICD-9-CM 272.4) Active Condition [facility] Hypertension * (ICD-9-CM 401.9) Active Condition [facility] Hyperthyroidism * (ICD-9-CM 242.90) Active Condition [facility] Menopausal syndrome (ICD-9-CM 627.2) Active Condition [facility] OBESITY, UNSP Active Condition [facility] Osteoarthrosis, generalized, involving multiple sites (ICD-9-CM 715.09) Active Condition [facility] Allergies, Adverse Reactions, Alerts Combined list of allergies from [facility] and [facility] facilities. It does not include entries that were removed or entered in error. Substance Category Reaction Severity Reaction type Status Date Reported Comments Source DOXEPIN HYDROCHLORIDE Propensity to adverse reactions to drug (finding) active 1 [facility] E-MYCIN Propensity to adverse reactions to drug (finding) ABD.CRAMP S active 0 [facility] LIPITOR 20MG TAB Propensity to adverse reactions to drug (finding) active 1 [facility] PENICILLIN Propensity to adverse reactions to drug (finding) Eruption active 0 [facility] SULFA DRUGS Propensity to adverse reactions to drug (finding) HIVES active 0 [facility] Immunizations Combined list of available immunizations from the Department of Defense and [facility] facilities. Immunization Series Date Given Administered By Site Reaction Lot Number CVX Code Drug Charge Master Analyst Status Comments Source INFLUENZA, UNSPECIFIED FORMULATION 1999 [place] 88 complet ed [facility](ADULT) UNSPECIFIED FORMULATION 1997 139 complet ed [facility] Social History Combined list of available smoking, tobacco, and other social history from [facility] Defense and [facility] Affairs facilities. Social History Type Response Date Comment Sour e Tobacco smoking status NHIS CURRENT NON-TOBACCO USER-HX OF USE 06/19/2002 [facility] History of tobacco use CURRENT NON-TOBAC CO USER-HX OF USE 10/01/2001 Stopped [facility] History of tobacco use CURRENT NON-TOBAC CO USER-HX OF USE 07/25/2001 [facility] History of tobacco use LIFETIME NON-SMOKER 01/31/2001 [facility]
--- OUTSIDE RECORDS SUMMARY | 2025-06-15 13:20 | XMS_ITS | Encounter Summary ---
Author Organization [facility] Address [address] [place] [address] Care Team Providers Care Herbarium Worker Name Role Phone Jean Gibbons MD Primary Care Provider [phone] Reason for Visit * Reason Comments Follow Up Chronic Conditions Coordination Weight Loss Fatigue Fall Frequent falls- frank y Encounter Details Date Type Department Care Team (Late st Contact Info) Description 06/15/2025 1:20 PM CDT Office Visit [facility] [address] [phone] Jean Gibbons MD [address] [phone] Paroxysmal atrial fibrillation (CMS/HCC) (Primary Dx); Hyperthyroidism; Chronic anemia; JAVIER (acute kidney injury); Muscle weakness (generalized); History of falling; Myelodysplastic syndrome (CMS/HCC); Stage 3a chronic kidney disease (CMS/HCC) Social History Tobacco Use Types Packs/Day Years Used Date Smoking Tobacco: Former Cigarettes Q uit: 08/12/1990 Smokeless Tobacco: Never Comments:Quit smoking: quit in the Alcohol Use Standard Drinks/Week Comments Not Currently 0 (1 standard drink = 0.6 oz pur e alcohol) Financial Resource Strain Answer Date R ecorded How hard is it for you to pa y for the very basics like food, housing, medical care, and heating? Not very hard 09/29/2022 Food Insecurity Answer Date Recorded In the past 12 months, have you worried that your food would run out before you had money to buy more? Never true 09/29/2022 In the past 12 months, did y ou run out of food and didn't have money to buy more? Never true 09/29/2022 Transportation Needs Answer Date Record ed In the past 12 months, has l ack of transportation kept you from medical appointments or from getting medications? No 09/29/2022 Lack of Transportation (Non-Medical) Not on file 09/29/2022 Feeling Safe Answer Date Recorded Are you in a relationship wi th someone who hurts you emotionally and/or physically? No 03/11/2025 Food Insecurity Answer Date Recorded Patient needs follow up regardin 03/05/2025 Transportation Needs Answer Date Record ed Patient needs follow up regardin 03/05/2025 Housing Stability Answer Date Recorded Social/Environmental Concerns No concerns Utility Needs Answer Date Recorded Patient needs follow up regardin 03/05/2025 Comments No Sex and Gender Information Value Date Recorded Sex Assigned at Not on file Legal Sex Female 4:19 AM [employer] Gender Identity Not on file Sexual Orientation Not on file documented as of this encounter Last Filed Vital Signs Vital Sign Reading Time Taken Comments Blood Pressure 158/72 06/15/2025 1:47 PM CDT Pulse 65 06/15/2025 1:40 PM CDT Temperature 37.1 C (98.8 F) 06/15/2025 1:40 PM CDT Respiratory Rate 18 06/15/2025 1:40 PM CDT Oxygen Saturation 99% 06/15/2025 1:40 PM CDT Inhaled Oxygen Concentration - - Weight 59.4 kg (131 lb) 06/15/2025 1:40 PM CDT Height 167.6 cm (5' 6 ) 06/15/2025 1:40 PM CDT Body Mass Index 21.14 06/15/2025 1:40 PM CDT documented in this encounter Progress Notes * Jean Gibbons MD - 06/15/2025 2:34 PM CDT [facility] [place] 06/15/2025 Subjective: Cris New is a 80 y.o. female who comes today for evaluation of Follow Up, Chronic Conditions Coordination, Weight Loss, Fatigue, and Fall (Frequent falls- daily) . History of Present Illness The patient presents for evaluation of weight loss, frequent falls, and pain management. She has experienced a weight loss of 25 pounds over the past 6 weeks, which she attributes to inadequate food intake. She reports no abdominal pain or vomiting but mentions occasional diarrhea once or twice a day in the last couple of days. She has been receiving injections to boost her blood counts and is scheduled for another injection next week. She is currently on a blood thinner and has been taking tramadol for pain management for several years. She has been experiencing daily falls, sometimes even twice a day. These falls often occur when shefeels a sensation juvenal to vibrating, prompting her to hold onto something for support. Despite thisprecaution, she fell yesterday, resulting in back pain. She plans to visit a chiropractor for this issue. She lives independently and uses mobility aids such as a walker, two canes, and a wheelchair.She also has a large walker that provides additional support. Her daughter assists with supervisor landscape like laundry and cooking. They have arranged for a helper to come in once or twice a week to clean floors and wash dishes. She has not considered moving in with her daughter or into assisted [facility] due to financial constraints and her daughter's pets. Social History: Diet: She reports inadequate food intake. Living Condition: She lives independently. PAST SURGICAL HISTORY: Bone marrow biopsy: JARETT/KAMRYN ZAMORANO Objective: Vitals: 06/15/25 1340 06/15/25 1347 Temp: 98.8 ??F (37.1 ??C) Pulse: 65 BP: (!) 150/70 (!) 158/72 Resp: 18 SpO2: 99% Physical Exam Past medical history, surgical history and social history reviewed. Past Medical History: Diagnosis Date A-fib (CMS/HCC) Anxiety Arthropathy, unspecified, site unspecified Congestive heart failure (CMS/HCC) Depression Dysrhythmia, cardiac HTN (hypertension) Hypothyroidism IBS (irritable bowel syndrome) Osteoarthritis Post-operative nausea and vomiting Seborrheic keratosis Temporomandibular joint disorders, unspecified Unspecified adverse effect of anesthesia Unspecified disorder of lipoid metabolism Procedures Assessment/Plan: ICD-10-CM ICD-9-CM 1. Paroxysmal atrial fibrillation (CMS/HCC) I48.0 427.31 apixaban (Eliquis) 2.5 mg tablet CBC WITH DIFFERENTIAL COMPREHENSIVE METABOLIC PANEL 2. Hyperthyroidism E05.90 242.90 TSH T4 FREE 3. Chronic anemia D64.9 285.9 CBC WITH DIFFERENTIAL COMPREHENSIVE METABOLIC PANEL 4. JAVIER (acute kidney injury) N17.9 584.9 CBC WITH DIFFERENTIAL COMPREHENSIVE METABOLIC PANEL 5. Muscle weakness (generalized) M62.81 728.87 CBC WITH DIFFERENTIAL COMPREHENSIVE METABOLIC PANEL 6. History of falling Z91.81 V15.88 7. Myelodysplastic syndrome (CMS/HCC) D46.9 238.75 Assessment & Plan 1. Weight loss. - She has lost 25 pounds over the last 6 weeks. - Reports no abdominal pain, vomiting, or significant diarrhea, although she had a bout of diarrheaonce or twice a day in the last couple of days. - Blood work will be conducted to further investigate the cause of the weight loss. 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 2. Frequent falls. - Experiences frequent falls, sometimes twice a day, and has hit her head multiple times. - Uses a walker, canes, and a wheelchair for mobility. - Bone marrow biopsy results indicated low counts; she is receiving weekly or bi-weekly shots to boost blood counts. - The dosage of her blood thinner will be reduced due to the risk of bleeding from frequent falls (geriatric dosing based on age, weight, creatinine) - Continue home health care, discussed need for assistance at home, could consider moving in with family or assisted living, patient declines at this time. 3. Pain management. - Has been on tramadol for pain management for many years. - A long form was provided to ensure she understands the risks of taking tramadol, a controlled medicine. - Tramadol prescription will continue as per current regimen. 4. Myelodysplastic syndrome - Continue follow-up with oncology 5.CKD -Labs today Follow-up: A video visit will be scheduled for follow-up in 4 to 6 weeks. Jean Gibbons MD The author of this note, patient (or authorized manufacturer's representative), and all other persons present consent to the audio recording of this visit for charting documentation purposes. This note was automatically generated by a Generative AI technology ([employer]), reviewed, edited, and finalized by Jean Gibbons MD. documented in this encounter Plan of Treatment Upcoming Encounters Date Type Department Care Team (Late st Contact Info) Description 07/21/2025 3:00 PM CDT Video Visit [facility] [address] [phone] Jean Gibbons MD [address] [place] [phone] documented as of this encounter Goals Goal Patient Goal Type Associated Problems Recent Progress Patient-Stated? Author Heart Failure Goal Care Plan Heart Failure Problem No [place], [place] Heart Failure Goal Care Plan Heart Failure Problem No Wendy, [place] Heart Failure Goal Care Plan Heart Failure Problem No Grandstaff, Judy, WET TRIMMER Heart Failure Goal Care Plan Heart Failure Problem No [place], Judy, WET TRIMMER Heart Failure Goal Care Plan Heart Failure Problem No [place], Judy, WET TRIMMER Heart Failure Goal Care Plan Heart Failure Problem No [place], Judy, WET TRIMMER Heart Failure Goal Care Plan Heart Failure Problem No [place], Judy, WET TRIMMER Heart Failure Goal Care Plan Heart Failure Problem No [place], Judy, WET TRIMMER Heart Failure Goal Care Plan Heart Failure Problem No [place], Judy, WET TRIMMER Heart Failure Goal Care Plan Heart Failure Problem No [place], Judy, WET TRIMMER Heart Failure Goal Care Plan Heart Failure Problem No [place], Judy, WET TRIMMER Heart Failure Goal Care Plan Heart Failure Problem No [place], Judy, WET TRIMMER Heart Failure Goal Care Plan Heart Failure Problem No [place], Judy, WET TRIMMER Heart Failure Goal Care Plan Heart Failure Problem No [place], Judy, WET TRIMMER Heart Failure Goal Care Plan Heart Failure Problem No [place], Judy, WET TRIMMER Heart Failure Goal Care Plan Heart Failure Problem No Peyton Shabazz, WET TRIMMER Heart Failure Goal Care Plan Heart Failure Problem No Azalia Cervantes, WET TRIMMER Heart Failure Goal Care Plan Heart Failure Problem No Azalia Cervantes, WET TRIMMER Heart Failure Goal Care Plan Heart Failure Problem No Mele, Peyton M, WET TRIMMER Heart Failure Goal Care Plan Heart Failure Problem No Mele, Peyton M, WET TRIMMER Heart Failure Goal Care Plan Heart Failure Problem No Mele, Peyton M, WET TRIMMER Heart Failure Goal Care Plan Heart Failure Problem No Mele, Peyton M, WET TRIMMER Heart Failure Goal Care Plan Heart Failure Problem No Mele, Peyton M, WET TRIMMER Heart Failure Goal Care Plan Heart Failure Problem No Mele, Peyton M, WET TRIMMER Heart Failure Goal Care Plan Heart Failure Problem No Mele, Peyton M, WET TRIMMER Heart Failure Goal Care Plan Heart Failure Problem No Mele, Peyton M, WET TRIMMER Heart Failure Goal Care Plan Heart Failure Problem No Mele, Peyton M, WET TRIMMER Heart Failure Goal Care Plan Heart Failure Problem No Mele, Peyton M, WET TRIMMER Heart Failure Goal Care Plan Heart Failure Problem No Mele, Peyton M, WET TRIMMER Heart Failure Goal Care Plan Heart Failure Problem No Mele, Peyton M, WET TRIMMER Heart Failure Goal Care Plan Heart Failure Problem No Mele, Peyton M, WET TRIMMER Heart Failure Goal Care Plan Heart Failure Problem No Mele, Peyton M, WET TRIMMER Heart Failure Goal Care Plan Heart Failure Problem No Mele, Peyton M, WET TRIMMER Heart Failure Goal Care Plan Heart Failure Problem No Mele, Peyton M, WET TRIMMER Heart Failure Goal Care Plan Heart Failure Problem No Jean Gibbons MD Heart Failure Goal Care Plan Heart Failure Problem No Jean Gibbons MD Heart Failure Goal Care Plan Heart Failure Problem No Jean Gibbons MD Heart Failure Goal Care Plan Heart Failure Problem No Jean Gibbons MD Heart Failure Goal Care Plan Heart Failure Problem No Jean Gibbons MD Heart Failure Goal Care Plan Heart Failure Problem No Jean Gibbons MD Heart Failure Goal Care Plan Heart Failure Problem No Jean Gibbons MD Heart Failure Goal Care Plan Heart Failure Problem No Jean Gibbons MD Heart Failure Goal Care Plan Heart Failure Problem No Jean Gibbons MD Heart Failure Goal Care Plan Heart Failure Problem No Jean Gibbons MD Heart Failure Goal Care Plan Heart Failure Problem No Jean Gibbons MD Heart Failure Goal Care Plan Heart Failure Problem No Jean Gibbons MD Heart Failure Goal Care Plan Heart Failure Problem No Jean Gibbons MD Heart Failure Goal Care Plan Heart Failure Problem No Jean Gibbons MD Heart Failure Goal Care Plan Heart Failure Problem No Jean Gibbons MD Heart Failure Goal Care Plan Heart Failure Problem No MelePeyton LPN Heart Failure Goal Care Plan Heart Failure Problem No MelePeyton LPN Heart Failure Goal Care Plan Heart Failure Problem No Rachel Ceja RN documented as of this encounter Procedures Procedure Name Priority Date/Time Associated Diagnosis Comments CBC WITH DIFFERENTIAL Routine 06/15/2025 2:34 PM CDT Paroxysmal atrial fibrillation (CMS/HCC) Chronic anemia JAVIER (acute kidney injury) Muscle weakness (generalized) TSH Routine 06/15/2025 2:34 PM CDT Hyperthyroidism T4 FREE Routine 06/15/2025 2:34 PM CDT Hyperthyroidism COMPREHENSIVE METABOLIC PANEL Routine 06/15/2025 2:34 PM CDT Paroxysmal atrial fibrillation (CMS/HCC) Chronic anemia JAVIER (acute kidney injury) Muscle weakness (generalized) documented in this encounter Results * (ABNORMAL) COMPREHENSIVE METABOLIC PANEL (06/15/2025 2:34 PM CDT) GLUCOSE 94 65 - 99 mg/dL [facility] Comment: Fasting reference interval BUN 24 7 - 25 mg/dL [facility] CREATININE 1.13(H) 0.60 - 0.95 mg/dL [facility] GFR 49(L) > OR = 60 mL/min/1.7 3m2 [facility] BUN/CREAT RATIO 21 6 - 22 (calc) [facility] SODIUM 133(L) 135 - 146 mmol/L [facility] POTASSIUM 4.3 3.5 - 5.3 mmol/L [facility] CHLORIDE 96(L) 98 - 110 mmol/L [facility] CO2 29 20 - 32 mmol/L [facility] CALCIUM 10.0 8.6 - 10.4 mg/dL [facility] TOTAL PROTEIN 6.3 6.1 - 8.1 g/dL [facility] ALBUMIN 4.5 3.6 - 5.1 g/dL [facility] GLOBULIN 1.8(L) 1.9 - 3.7 g/dL (calc) [facility] ALBUMIN/GLOBULIN RATIO 2.5 1.0 - 2.5 (calc) [facility] BILIRUBIN TOTAL 1.5(H) 0.2 - 1.2 mg/dL [facility] ALKALINE PHOSPHATASE 73 37 - 153 U/L [facility] AST 26 10 - 35 U/L [facility] ALT 32(H) 6 - 29 U/L [facility] Comment: Test Performed at: [facility] [address] [address] [place] [address] Lliiana Cotter MD Blood 06/15/2025 2:34 PM CDT 06/16/2025 5:03 AM CDT us Jean Gibbons MD CHEMISTRY ORDERABLES Etta l Result [facility] [phone] [facility] [address] [place] [address] [place] [address] * (ABNORMAL) CBC WITH DIFFERENTIAL (06/15/2025 2:34 PM CDT) WBC 11.6(H) 3.8 - 10.8 Thousand/u L [facility] RBC 3.34(L) 3.80 - 5.10 Million/uL [facility] HEMOGLOBIN 10.8(L) 11.7 - 15.5 g/dL [facility] HEMATOCRIT 33.4(L) 35.0 - 45.0 % [facility] MCV 100.0 80.0 - 100.0 fL [facility] MCH 32.3 27.0 - 33.0 pg [facility] MCHC 32.3 32.0 - 36.0 g/dL [facility] Comment: For adults, a slight decrease in the calculated MCHC value (in the range of 30 to 32 g/dL) is most likely not clinically significant; however, it should be interpreted with caution in correlation with other red cell parameters and the patient's clinical condition. RDW 16.0(H) 11.0 - 15.0 % [facility] PLATELETS 475(H) 140 - 400 Thousand/u L [facility] MPV 10.1 7.5 - 12.5 fL [facility] NEUTROPHIL ABSOLUTE 6,890 1,500 - 7,800 cells/uL [facility] LYMPHOCYTE ABSOLUTE 2,981 850 - 3,900 cells/uL [facility] MONOCYTE ABSOLUTE 1,369(H) 200 - 950 cells/uL [facility] EOSINOPHIL ABSOLUTE 302 15 - 500 cells/uL [facility] BASOPHILS ABSOLUTE 58 0 - 200 cells/uL [facility] NEUTROPHIL 59.4 % [facility] LYMPHOCYTES 25.7 % [facility] MONOCYTE 11.8 % [facility] EOSINOPHILS 2.6 % [facility] BASOPHILS 0.5 % [facility] Comment: Test Performed at: [place] [address] [address] Liliana Cotter MD Blood 06/15/2025 2:34 PM CDT 06/16/2025 5:03 AM CDT Jean Gibbons MD HEMATOLOGY ORDERABLES Fin al Result [facility] [phone] [facility] [address] [address] * T4 FREE (06/15/2025 2:34 PM CDT) T4 FREE 1.5 0.8 - 1.8 ng/dL [facility] Comment: Test Performed at: [facility] [address] [address] Liliana Cotter MD Blood 06/15/2025 2:34 PM CDT 06/16/2025 5:03 AM CDT Jean Gibbons MD CHEMISTRY ORDERABLES Etta l Result Performing Organization Address City/[facility]/ZIP Co de Phone Number [facility] [phone] [facility] [address] [place] [address] * TSH (06/15/2025 2:34 PM CDT) TSH 1.82 0.40 - 4.50 mIU/L [facility] Comment: Test Performed at: [place] [address] [place] [address] Liliana Cotter MD Blood 06/15/2025 2:34 PM CDT 06/16/2025 5:03 AM CDT Jean Gibbons MD CHEMISTRY ORDERABLES Etta l Result Performing Organization Address [facility] Co de Phone Number [facility] [phone] [facility] [address] [place] [phone] documented in this encounter Visit Diagnoses Diagnosis Paroxysmal atrial fibrillation (CMS/HCC)- Primary Atrial fibrillation Hyperthyroidism Thyrotoxicosis without mention of goiter or other cause, without mention of thyrotoxic crisis or storm Chronic anemia Anemia, unspecified JAVIER (acute kidney injury) Acute kidney failure, unspecified Muscle weakness (generalized) History of falling Personal history of fall Myelodysplastic syndrome (CMS/HCC) Myelodysplastic syndrome, unspecified Stage 3a chronic kidney disease (CMS/HCC) documented in this encounter Additional Health Concerns Active Problems Noted Date Diagnosed Date Heart Failure Problem 10/21/2024 Heart Failure Problem 10/21/2024 Heart Failure Problem 11/06/2024 Heart Failure Problem 11/06/2024 Heart Failure Problem 11/06/2024 Heart Failure Problem 11/06/2024 Heart Failure Problem 11/06/2024 Heart Failure Problem 11/06/2024 Heart Failure Problem 11/06/2024 Heart Failure Problem 11/06/2024 Heart Failure Problem 11/06/2024 Heart Failure Problem 11/06/2024 Heart Failure Problem 11/06/2024 Heart Failure Problem 11/06/2024 Heart Failure Problem 11/06/2024 Heart Failure Problem 11/11/2024 Heart Failure Problem 11/11/2024 Heart Failure Problem 11/11/2024 Heart Failure Problem 12/04/2024 Heart Failure Problem 12/04/2024 Heart Failure Problem 12/04/2024 Heart Failure Problem 12/04/2024 Heart Failure Problem 12/04/2024 Heart Failure Problem 12/04/2024 Heart Failure Problem 12/04/2024 Heart Failure Problem 12/04/2024 Heart Failure Problem 12/04/2024 Heart Failure Problem 12/04/2024 Heart Failure Problem 12/04/2024 Heart Failure Problem 12/04/2024 Heart Failure Problem 12/04/2024 Heart Failure Problem 12/04/2024 Heart Failure Problem 12/04/2024 Heart Failure Problem 12/04/2024 Heart Failure Problem 12/04/2024 Heart Failure Problem 12/04/2024 Heart Failure Problem 12/04/2024 Heart Failure Problem 12/04/2024 Heart Failure Problem 12/04/2024 Heart Failure Problem 12/04/2024 Heart Failure Problem 12/04/2024 Heart Failure Problem 12/04/2024 Heart Failure Problem 12/04/2024 Heart Failure Problem 12/04/2024 Heart Failure Problem 12/04/2024 Heart Failure Problem 12/04/2024 Heart Failure Problem 12/04/2024 Heart Failure Problem 12/04/2024 Heart Failure Problem 12/04/2024 Heart Failure Problem 12/04/2024 Heart Failure Problem 12/04/2024 Heart Failure Problem 12/04/2024 Assessment Noted Time PHQ-9 Depression Total Score: 2 03/05/20 25 1:00 PM CDT documented as of this encounter Care Teams Herbarium Worker Relationship Specialty Start Date End Date Jean Gibbons MD [address] [facility] [address] [place] [phone] PCP - General Family Practice 04/09/18 documented as of this encounter
[2025-07-11 16:43] VITALS: BP 166/72; PULSE 55; RESP 16; TEMP 36.5; O2SAT 97; BMI 22.6
--- OUTSIDE RECORDS SUMMARY | 2025-07-11 16:54 | XMS_ITS | Encounter Summary ---
Author Organization [facility] Address 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 Author Heart Failure Goal Care Plan Heart Failure Problem No Wendy, Teasdale Heart Failure Goal Care Plan Heart Failure Problem No Wendy, Glenny Heart Failure Goal Care Plan Heart Failure Problem No Grandstaff, Judy, COGNOS ANALYST Heart Failure Goal Care Plan Heart Failure Problem No Grandstaff, Judy, COGNOS ANALYST Heart Failure Goal Care Plan Heart Failure Problem No Grandstaff, Judy, COGNOS ANALYST Heart Failure Goal Care Plan Heart Failure Problem No Grandstaff, Judy, COGNOS ANALYST Heart Failure Goal Care Plan Heart Failure Problem No Grandstaff, Judy, COGNOS ANALYST Heart Failure Goal Care Plan Heart Failure Problem No Grandstaff, Judy, COGNOS ANALYST Heart Failure Goal Care Plan Heart Failure Problem No Grandstaff, Judy, COGNOS ANALYST Heart Failure Goal Care Plan Heart Failure Problem No Grandstaff, Judy, COGNOS ANALYST Heart Failure Goal Care Plan Heart Failure Problem No Grandstaff, Judy, COGNOS ANALYST Heart Failure Goal Care Plan Heart Failure Problem No Grandstaff, Judy, COGNOS ANALYST Heart Failure Goal Care Plan Heart Failure Problem No Grandstaff, Judy, COGNOS ANALYST Heart Failure Goal Care Plan Heart Failure Problem No Grandstaff, Judy, COGNOS ANALYST Heart Failure Goal Care Plan Heart Failure Problem No Grandstaff, Judy, COGNOS ANALYST Heart Failure Goal Care Plan Heart Failure Problem No Mele, Peyton M, COGNOS ANALYST Heart Failure Goal Care Plan Heart Failure Problem No Cervantes, Azalia K, COGNOS ANALYST Heart Failure Goal Care Plan Heart Failure Problem No Cervantes, Azalia K, COGNOS ANALYST Heart Failure Goal Care Plan Heart Failure Problem No Mele, Peyton M, COGNOS ANALYST Heart Failure Goal Care Plan Heart Failure Problem No Mele, Peyton M, COGNOS ANALYST Heart Failure Goal Care Plan Heart Failure Problem No Mele, Peyton M, COGNOS ANALYST Heart Failure Goal Care Plan Heart Failure Problem No Mele, Peyton M, COGNOS ANALYST Heart Failure Goal Care Plan Heart Failure Problem No Mele, Peyton M, COGNOS ANALYST Heart Failure Goal Care Plan Heart Failure Problem No Mele, Peyton M, COGNOS ANALYST Heart Failure Goal Care Plan Heart Failure Problem No Mele, Peyton M, COGNOS ANALYST Heart Failure Goal Care Plan Heart Failure Problem No Mele, Peyton M, COGNOS ANALYST Heart Failure Goal Care Plan Heart Failure Problem No Mele, Peyton M, COGNOS ANALYST Heart Failure Goal Care Plan Heart Failure Problem No Mele, Peyton M, COGNOS ANALYST Heart Failure Goal Care Plan Heart Failure Problem No Mele, Peyton M, COGNOS ANALYST Heart Failure Goal Care Plan Heart Failure Problem No Mele, Peyton M, COGNOS ANALYST Heart Failure Goal Care Plan Heart Failure Problem No Mele, Peyton M, COGNOS ANALYST Heart Failure Goal Care Plan Heart Failure Problem No Mele, Peyton M, COGNOS ANALYST Heart Failure Goal Care Plan Heart Failure Problem No Mele, Peyton M, COGNOS ANALYST Heart Failure Goal Care Plan Heart Failure Problem No Mele, Peyton M, COGNOS ANALYST Heart Failure Goal Care Plan Heart Failure [...] Heart Failure Problem No Mele, Peyton M, COGNOS ANALYST Heart Failure Goal Care Plan Heart Failure Problem No Mele, Peyton M, COGNOS ANALYST Heart Failure Goal Care Plan Heart Failure Problem No Rahcel Ceja RN documented as of this encounter Visit Diagnoses Not on filedocumented in this encounter Additional Health Concerns Active [...] documented as of this encounter Care Teams Food Order Expediter Relationship Specialty Start Date End Date Jean Gibbons MD [address] [facility] [address] [place] [phone] PCP - General Family Practice 04/09/18 documented as of this encounter
--- OUTSIDE RECORDS SUMMARY | 2025-07-11 16:54 | XMS_ITS | Encounter Summary ---
Author Organization [facility] Address [address] [place] [address] Care Team Providers Care Fruit I Farmworker Name Role Phone Jean Gibbons MD Primary Care Provider [phone] [phone] Encounter Details Date Type Department Care Team (Late st Contact Info) Description 04/15/2008 Outpatient Historical [facility] Hema Hong MD [address] [place] [address] Social History Tobacco Use Types Packs/Day Years Used Date Smoking Tobacco: Never Assessed Comments No Sex and Gender Information Value Date Recorded Sex Assigned at Not on file Legal Sex Female 4:08 AM MANAGER CONTRACTING Gender Identity Not on file Sexual Orientation Not on file documented as of this encounter Plan of Treatment Not on file documented as of this encounter Visit Diagnoses Not on filedocumented in this encounter Additional Health Concerns Infection Onset Date Last Indicated Resolved Time R/O COVID-19 10/21/2020 10/21/2020 10/28/2021 9:17 PM MANAGER CONTRACTING documented as of this encounter Care Teams Fruit I Farmworker Relationship Specialty Start Date End Date Jean Gibbons MD [address] [place] [id number] PCP - General Family Practice 04/09/18 documented as of this encounter
--- OUTSIDE RECORDS SUMMARY | 2025-07-11 16:54 | XMS_ITS | Encounter Summary ---
Author Organization [facility] Address [address] [place] [address] Care Team Providers Care Rivet Maker Name Role Phone Jean Gibbons MD Primary Care Provider [phone] [phone] Encounter Details Date Type Department Care Team (Latest Contact Info) Description 10/23/2005 Outpatient Historical [facility] [place] [address] [address] Deanna Parada NP NO ADDRESS ON FILE ACUTE SINUSITIS NOS (Primary Dx); JOINT PAIN-UNSPEC Social History Tobacco Use Types Packs/Day Years Used Date Smoking Tobacco: Never Assessed Comments Unknown Sex and Gender Information Value Date Recorded Sex Assigned at Not on file Legal Sex Female 4:08 AM INSTALLMENT LOAN COLLECTOR Gender Identity Not on file Sexual Orientation Not on file documented as of this encounter Plan of Treatment Not on file documented as of this encounter Visit Diagnoses Diagnosis Acute sinusitis, unspecified- Primary Pain in joint, site unspecified documented in this encounter Additional Health Concerns Infection Onset Date Last Indicated Resolved Time R/O COVID-19 10/21/2020 10/21/2020 10/28/2021 9:17 PM INSTALLMENT LOAN COLLECTOR documented as of this encounter Care Teams Rivet Maker Relationship Specialty Start Date End Date Jean Gibbons MD [address] [address] PCP - General Family Practice 04/09/18 documented as of this encounter
--- OUTSIDE RECORDS SUMMARY | 2025-07-11 16:54 | XMS_ITS | Encounter Summary ---
Author Organization [facility] Address [address] [place] [address] Care Team Providers Care Hot Cell Technician Name Role Phone Jean Gibbons MD Primary Care Provider [phone] [phone] Encounter Details Date Type Department Care Team (Latest Contact Info) Description 03/08/2001 Outpatient Historical [facility] Endocrinology-[place] [place] [address] [place] [address] Mine Tucker MD [address] [place], [place] [id number] Thyrotoxicosis without mention of goiter or other cause, without mention of thyrotoxic crisis or storm (Primary Dx) Social History Tobacco Use Types Packs/Day Years Used Date Smoking Tobacco: Never Assessed Comments Unknown Sex and Gender Information Value Date Recorded Sex Assigned at Not on file Legal Sex Female 4:08 AM HEAD USHER Gender Identity Not on file Sexual Orientation Not on file documented as of this encounter Plan of Treatment Not on file documented as of this encounter Visit Diagnoses Diagnosis Thyrotoxicosis without mention of goiter or other cause, without mention of thyrotoxic crisis or storm- Primary documented in this encounter Additional Health Concerns Infection Onset Date Last Indicated Resolved Time R/O COVID-19 10/21/2020 10/21/2020 10/28/2021 9:17 PM HEAD USHER documented as of this encounter Care Teams Hot Cell Technician Relationship Specialty Start Date End Date Jean Gibbons MD [address] [place] [address] PCP - General Family Practice 04/09/18 documented as of this encounter
--- OUTSIDE RECORDS SUMMARY | 2025-07-11 16:54 | XMS_ITS | Encounter Summary ---
Author Organization [facility] Address [address] [place] [address] Care Team Providers Care Hotel Reservationist Name Role Phone Jean Gibbons MD Primary Care Provider [phone] [phone] Encounter Details Date Type Department Care Team (Latest Contact Info) Description 09/28/2005 Outpatient Historical [facility] Medicine [address] [address] Lesley Ortega, DIPLOMATIC INTERPRETER [address] [place] [address] ACUTE URI NOS (Primary Dx); HYPOTHYROIDISM NOS; EXAM AFTR OTHR HI-RISK COMPL RX NEC; COUGH Social History Tobacco Use Types Packs/Day Years Used Date Smoking Tobacco: Never Assessed Comments Unknown Sex and Gender Information Value Date Recorded Sex Assigned at Not on file Legal Sex Female 4:08 AM LABORATORY WORKER Gender Identity Not on file Sexual Orientation Not on file documented as of this encounter Plan of Treatment Not on file documented as of this encounter Visit Diagnoses Diagnosis Acute upper respiratory infections of unspecified site- Primary Unspecified hypothyroidism Follow-up examination following completed treatment with high-risk medications, not elsewhere classified Cough documented in this encounter Additional Health Concerns Infection Onset Date Last Indicated Resolved Time R/O COVID-19 10/21/2020 10/21/2020 10/28/2021 9:17 PM LABORATORY WORKER documented as of this encounter Care Teams Hotel Reservationist Relationship Specialty Start Date End Date Jean Gibbons MD [address] [address] PCP - General Family Practice 04/09/18 documented as of this encounter
--- OUTSIDE RECORDS SUMMARY | 2025-07-11 16:54 | XMS_ITS | Encounter Summary ---
Author Organization [facility] Address [address] [place] [address] Care Team Providers Care Machine Group Leader Name Role Phone Jean Gibbons MD Primary Care Provider [phone] [phone] Encounter Details Date Type Department Care Team (Late st Contact Info) Description 03/02/2000 Outpatient Historical [facility] Social History Tobacco Use Types Packs/Day Years Used Date Smoking Tobacco: Never Assessed Comments Unknown Sex and Gender Information Value Date Recorded Sex Assigned at Not on file Legal Sex Female 4:08 AM OPERATIONAL TRAINER Gender Identity Not on file Sexual Orientation Not on file documented as of this encounter Plan of Treatment Not on file documented as of this encounter Visit Diagnoses Not on filedocumented in this encounter Additional Health Concerns Infection Onset Date Last Indicated Resolved Time R/O COVID-19 10/21/2020 10/21/2020 10/28/2021 9:17 PM OPERATIONAL TRAINER documented as of this encounter Care Teams Machine Group Leader Relationship Specialty Start Date End Date Jean Gibbons MD [address] [place] [address] PCP - General Family Practice 04/09/18 documented as of this encounter
--- OUTSIDE RECORDS SUMMARY | 2025-07-11 16:54 | XMS_ITS | Encounter Summary ---
Author Organization [facility] Address [address] [place] [address] Care Team Providers Care Regulatory Administrator Name Role Phone Jean Gibbons MD Primary Care Provider [phone] [phone] Encounter Details Date Type Department Care Team (Latest Contact Info) Description 06/07/2007 Outpatient Historical [facility] Medicine [place] [address] [address] Deanna Parada NP NO ADDRESS ON FILE Other Malaise and Fatigue (Primary Dx); Anxiety State, Unspecified; Abdominal Pain, Epigastric; Nonspecific Abnormal Electrocardiogram (ECG) (EKG) Social History Tobacco Use Types Packs/Day Years Used Date Smoking Tobacco: Never Assessed Comments Unknown Sex and Gender Information Value Date Recorded Sex Assigned at Not on file Legal Sex Female 4:08 AM STERILE TECH Gender Identity Not on file Sexual Orientation Not on file documented as of this encounter Plan of Treatment Not on file documented as of this encounter Visit Diagnoses Diagnosis Other malaise and fatigue- Primary Anxiety state, unspecified Abdominal pain, epigastric Nonspecific abnormal electrocardiogram (ECG) (EKG) documented in this encounter Additional Health Concerns Infection Onset Date Last Indicated Resolved Time R/O COVID-19 10/21/2020 10/21/2020 10/28/2021 9:17 PM STERILE TECH documented as of this encounter Care Teams Regulatory Administrator Relationship Specialty Start Date End Date Jean Gibbons MD [address] [phone] PCP - General Family Practice 04/09/18 documented as of this encounter
--- OUTSIDE RECORDS SUMMARY | 2025-07-11 16:54 | XMS_ITS | Encounter Summary ---
Author Organization [facility] Address [address] [place] [address] Care Team Providers Care Ground Instructor Basic Name Role Phone Jean Gibbons MD Primary Care Provider [phone] [phone] Encounter Details Date Type Department Care Team (Late st Contact Info) Description 11/18/2007 Outpatient Historical [facility] Medicine [place] [address] [address] Deanna Parada NP NO ADDRESS ON FILE Social History Tobacco Use Types Packs/Day Years Used Date Smoking Tobacco: Never Assessed Comments Unknown Sex and Gender Information Value Date Recorded Sex Assigned at Not on file Legal Sex Female 4:08 AM NUT STEAMER Gender Identity Not on file Sexual Orientation Not on file documented as of this encounter Plan of Treatment Not on file documented as of this encounter Visit Diagnoses Not on filedocumented in this encounter Additional Health Concerns Infection Onset Date Last Indicated Resolved Time R/O COVID-19 10/21/2020 10/21/2020 10/28/2021 9:17 PM NUT STEAMER documented as of this encounter Care Teams Ground Instructor Basic Relationship Specialty Start Date End Date Jean Gibbons MD [address] [address] PCP - General Family Practice 04/09/18 documented as of this encounter
--- OUTSIDE RECORDS SUMMARY | 2025-07-11 16:54 | XMS_ITS | Encounter Summary ---
Author Organization [facility] Address [address] [place] [address] Care Team Providers Care Group Segment Consultant Name Role Phone Jean Gibbons MD Primary Care Provider [phone] [phone] Encounter Details Date Type Department Care Team (Latest Contact Info) Description 08/01/2005 Outpatient Historical [facility] Medicine [address] [address] Ben Winters DO NO ADDRESS ON FILE BACKACHE NOS (Primary Dx); HYPERTENSION NOS; DEPRESSIVE DISORDER NEC Social History Tobacco Use Types Packs/Day Years Used Date Smoking Tobacco: Never Assessed Comments Unknown Sex and Gender Information Value Date Recorded Sex Assigned at Not on file Legal Sex Female 4:08 AM ALTO SINGER Gender Identity Not on file Sexual Orientation Not on file documented as of this encounter Plan of Treatment Not on file documented as of this encounter Visit Diagnoses Diagnosis Backache, unspecified- Primary Unspecified essential hypertension Depressive disorder, not elsewhere classified documented in this encounter Additional Health Concerns Infection Onset Date Last Indicated Resolved Time R/O COVID-19 10/21/2020 10/21/2020 10/28/2021 9:17 PM ALTO SINGER documented as of this encounter Care Teams Group Segment Consultant Relationship Specialty Start Date End Date Jean Gibbons MD [address] [address] PCP - General Family Practice 04/09/18 documented as of this encounter
--- OUTSIDE RECORDS SUMMARY | 2025-07-11 16:54 | XMS_ITS | Encounter Summary ---
Author Organization [facility] Address [address] [place] [address] Care Team Providers Care Sleeve Presser Operator Name Role Phone Jean Gibbons MD Primary Care Provider +1 [phone] Reason for Visit * Reason Comments Provider Call Encounter Details Date Type Department Care Team (Late st Contact Info) Description 07/09/2025 Telephone [facility] Family Medicine [address] [address] Jean Gibbons MD [address] [address] Provider Call Social History Tobacco Use Types Packs/Day Years [...] on file Legal Sex Female 4:19 AM CAR TOP BOLTER Gender Identity Not on file Sexual Orientation Not on file documented as of this encounter Miscellaneous Notes * Telephone Encounter - Leah Verde - 07/09/2025 11:06 AM CDT Copied from [facility] #[id number]. Topic: [id number] Call >> Jul 09, 2025 11:03 AM Leah Johnson wrote: Caller is requesting to speak with Clinical Care Team. Caller Name: Radha Hinojosa Callback Number: [phone] Is the caller a Physician, Nurse Practitioner or Physician Preparation Center Coordinator? No Call Notes: Bruise on forehead and a skin tear on right hand after falling out of her chair. She has no other injuries. Is this addressing an immediate patient care need? No documented in this encounter Plan of Treatment Upcoming Encounters Date Type Department Care Team (Late st Contact Info) Description 07/21/2025 3:00 PM CDT Video Visit [facility] Medicine [place] [address] [address] Jean Gibbons MD [address] [address] documented as of this encounter Goals Goal Patient Goal Type Associated Problems Recent Progress Patient-Stated? Author Heart Failure Goal Care Plan Heart Failure Problem No Glenny Nguyen Heart Failure Goal Care Plan Heart Failure Problem No Wendy Glenny Heart Failure Goal Care Plan Heart Failure Problem No Grandstaff, Judy, PARI MUTUEL TICKET SELLER Heart Failure Goal Care Plan Heart Failure Problem No Grandstaff, Judy, PARI MUTUEL TICKET SELLER Heart Failure Goal Care Plan Heart Failure Problem No Grandstaff, Judy, PARI MUTUEL TICKET SELLER Heart Failure Goal Care Plan Heart Failure Problem No Grandstaff, Judy, PARI MUTUEL TICKET SELLER Heart Failure Goal Care Plan Heart Failure Problem No Grandstaff, Judy, PARI MUTUEL TICKET SELLER Heart Failure Goal Care Plan Heart Failure Problem No Grandstaff, Judy, PARI MUTUEL TICKET SELLER Heart Failure Goal Care Plan Heart Failure Problem No Grandstaff, Judy, PARI MUTUEL TICKET SELLER Heart Failure Goal Care Plan Heart Failure Problem No Grandstaff, Judy, PARI MUTUEL TICKET SELLER Heart Failure Goal Care Plan Heart Failure Problem No Grandstaff, Judy, PARI MUTUEL TICKET SELLER Heart Failure Goal Care Plan Heart Failure Problem No Grandstaff, Judy, PARI MUTUEL TICKET SELLER Heart Failure Goal Care Plan Heart Failure Problem No Grandstaff, Judy, PARI MUTUEL TICKET SELLER Heart Failure Goal Care Plan Heart Failure Problem No Grandstaff, Judy, PARI MUTUEL TICKET SELLER Heart Failure Goal Care Plan Heart Failure Problem No Grandstaff, Judy, PARI MUTUEL TICKET SELLER Heart Failure Goal Care Plan Heart Failure Problem No Mele, Peyton M, PARI MUTUEL TICKET SELLER Heart Failure Goal Care Plan Heart Failure Problem No Cervantes, Azalia K, PARI MUTUEL TICKET SELLER Heart Failure Goal Care Plan Heart Failure Problem No Cervantes, Azalia K, PARI MUTUEL TICKET SELLER Heart Failure Goal Care Plan Heart Failure Problem No Mele, Peyton M, PARI MUTUEL TICKET SELLER Heart Failure Goal Care Plan Heart Failure Problem No Mele, Peyton M, PARI MUTUEL TICKET SELLER Heart Failure Goal Care Plan Heart Failure Problem No Mele, Peytno M, PARI MUTUEL TICKET SELLER Heart Failure Goal Care Plan Heart Failure Problem No Mele, Peyton M, PARI MUTUEL TICKET SELLER Heart Failure Goal Care Plan Heart Failure Problem No Mele, Peyton M, PARI MUTUEL TICKET SELLER Heart Failure Goal Care Plan Heart Failure Problem No Mele, Peyton M, PARI MUTUEL TICKET SELLER Heart Failure Goal Care Plan Heart Failure Problem No Mele, Peyton M, PARI MUTUEL TICKET SELLER Heart Failure Goal Care Plan Heart Failure Problem No Mele, Peyton M, PARI MUTUEL TICKET SELLER Heart Failure Goal Care Plan Heart Failure Problem No Mele, Peyton M, PARI MUTUEL TICKET SELLER Heart Failure Goal Care Plan Heart Failure Problem No Mele, Peyton M, PARI MUTUEL TICKET SELLER Heart Failure Goal Care Plan Heart Failure Problem No Mele, Peyton M, PARI MUTUEL TICKET SELLER Heart Failure Goal Care Plan Heart Failure Problem No Mele, Peyton M, PARI MUTUEL TICKET SELLER Heart Failure Goal Care Plan Heart Failure Problem No Mele, Peyton M, PARI MUTUEL TICKET SELLER Heart Failure Goal Care Plan Heart Failure Problem No Mele, Peyton M, PARI MUTUEL TICKET SELLER Heart Failure Goal Care Plan Heart Failure Problem No Mele, Peyton M, PARI MUTUEL TICKET SELLER Heart Failure Goal Care Plan Heart Failure Problem No Mele, Peyton M, PARI MUTUEL TICKET SELLER Heart Failure Goal Care Plan Heart Failure [...] Heart Failure Problem No Mele, Peyton M, PARI MUTUEL TICKET SELLER Heart Failure Goal Care Plan Heart Failure Problem No Mele, Peyton M, PARI MUTUEL TICKET SELLER Heart Failure Goal Care Plan Heart Failure [...] documented as of this encounter Care Teams Sleeve Presser Operator Relationship Specialty Start Date End Date Jean Gibbons MD [address] [phone] PCP - General Family Practice 04/09/18 documented as of this encounter
--- OUTSIDE RECORDS SUMMARY | 2025-07-11 16:54 | XMS_ITS | Encounter Summary ---
Author Organization [facility] Address [address] [place] [address] Care Team Providers Care Water Aerobics Instructor Name Role Phone Jean Gibbons MD Primary Care Provider [phone] [phone] Encounter Details Date Type Department Care Team (Late st Contact Info) Description 07/10/2003 Outpatient Historical [facility] Medicine [place] [address] [address] Deanna Parada NP NO ADDRESS ON FILE Social History Tobacco Use Types Packs/Day Years Used Date Smoking Tobacco: Never Assessed Comments Unknown Sex and Gender Information Value Date Recorded Sex Assigned at Not on file Legal Sex Female 4:[address]MINISTRATOR Gender Identity Not on file Sexual Orientation Not on file documented as of this encounter Plan of Treatment Not on file documented as of this encounter Visit Diagnoses Not on filedocumented in this encounter Additional Health Concerns Infection Onset Date Last Indicated Resolved Time R/O COVID-19 10/21/2020 10/21/2020 10/28/2021 9:[address] ADMINISTRATOR documented as of this encounter Care Teams Water Aerobics Instructor Relationship Specialty Start Date End Date Jean Gibbons MD [address] [facility] [address] [place] [address] PCP - General Family Practice 04/09/18 documented as of this encounter
--- OUTSIDE RECORDS SUMMARY | 2025-07-11 16:54 | XMS_ITS ---
Author Organization [facility] Address [address] [place] [address] Care Team Providers Care Manager School Name Role Phone Jean Gibbons MD Primary Care Provider [phone] [phone] Active Problems Problem Noted Date Diagnosed Date Stage 3a chronic kidney disease 07/08/2025 History of falling 06/15/2025 Muscle weakness (generalized) 06/15/2025 Myelodysplastic syndrome 06/15/2025 Chronic idiopathic constipation 03/11/2025 Head injury, acute, without loss of consciousness, initial encounter 03/11/2025 Infrarenal abdominal aortic aneurysm (AAA) witho ut rupture 03/09/2025 Hematoma 03/01/2025 Chest pain 02/28/2025 Leukocytosis (leucocytosis) 02/28/2025 Chronic anemia 02/28/2025 Thrombocytosis 02/28/2025 Hyponatremia 02/28/2025 Elevated bilirubin 02/28/2025 IBS (irritable bowel syndrome) 02/28/2025 Fall 02/28/2025 Influenza vaccination declined 08/12/2024 Frail elderly 03/28/2024 Paroxysmal atrial fibrillation 01/08/2024 Rotator cuff syndrome of right shoulder 03/31/20 Statin myopathy 01/31/2021 Chronic systolic congestive heart failure 2019 Recurrent major depressive disorder, in partial remission 11/18/2019 Situational depression 10/17/2019 Osteoarthritis of spine with radiculopathy, cerv ical region 12/26/2018 [facility] prescription opiate use 07/02/2018 Spinal stenosis of lumbar re gion without neurogenic claudication 04/09/2018 Venous stasis dermatitis of both lower extremiti es 12/21/2017 Bilateral chronic serous otitis media 08/09/2015 Midline low back pain with left-sided sciatica 0 06/21/2015 Allergic rhinitis 08/11/2013 Family history of colon cancer 08/22/2011 Overview (03/10/2021): Colonoscopy: 09/22 (no polyps, repeat in 5 yrs) Personal history of colonic polyps 08/22/2011 HTN (hypertension) 04/11/2011 Primary osteoarthritis of both shoulders Anxiety, generalized Hyperthyroidism Overview (03/09/2021): TSH: 02/21 Hyperlipidemia Overview (03/09/2021): LDL: 160 (03/23) Current Treatment and Therapy Plans No current plan information found. Past Treatment and Therapy Plans No past plan information found. Lifetime Dose Tracking * Chemical Lifetime Dose Automatic Entry Manual Entr y Effective Dose 18.1 mSv 3 mSv 15.1 mSv Total DLP 2,369 DLP 1,419 DLP 950 DLP CTDIvol Max 114.9 mGy 89.6 mGy 25.3 mGy CTDIvol Min 102.6 mGy 77.3 mGy 25.3 mGy Resolved Problems Problem Noted Date Diagnosed Date Resolved Date ARF (acute renal failure) 02/28/2025 COPD (chronic obstructive pulmonary disease) 4 07/02/2018 Breast discharge 12/29/2013 06/07/2014 Anal fissure 12/29/2013 07/02/2018 Chronic bronchitis 11/15/2012 8 Colon cancer screening 09/23/201211/27 Overview (03/09/2021): Colonoscopy: 09/22 (no polyps, repeat in 5 yrs) Chronic back pain 09/26/2011 04/09/2018 Seborrheic keratosis 06/07/2011 018 Other and unspecified noninf ectious gastroenteritis and colitis(558.9) 11/27
--- OUTSIDE RECORDS SUMMARY | 2025-07-11 16:54 | XMS_ITS | Encounter Summary ---
Author Organization [facility] Address [address] [place] [address] Care Team Providers Care Oceanographic Meteorologist Name Role Phone Jean Gibbons MD Primary Care Provider +1 [phone] Encounter Details Date Type Department Care Team (Latest Contact Info) Description 04/09/2003 Outpatient Historical [facility] Medicine [address] [address] Kamini Gallegos MD NO ADDRESS ON FILE BACKACHE NOS (Primary Dx); SPASM OF MUSCLE; ACUTE PHARYNGITIS; ALLERGIC RHINITIS NOS Social History Tobacco Use Types Packs/Day Years Used Date Smoking Tobacco: Never Assessed Comments Unknown Sex and Gender Information Value Date Recorded Sex Assigned at Not on file Legal Sex Female 4:08 AM SLAB INSPECTOR Gender Identity Not on file Sexual Orientation Not on file documented as of this encounter Plan of Treatment Not on file documented as of this encounter Visit Diagnoses Diagnosis Backache, unspecified- Primary Spasm of muscle Acute pharyngitis Allergic rhinitis, cause unspecified documented in this encounter Additional Health Concerns Infection Onset Date Last Indicated Resolved Time R/O COVID-19 10/21/2020 10/21/2020 10/28/2021 9:17 PM SLAB INSPECTOR documented as of this encounter Care Teams Oceanographic Meteorologist Relationship Specialty Start Date End Date Jean Gibbons MD [address] [address] PCP - General Family Practice 04/09/18 documented as of this encounter
--- OUTSIDE RECORDS SUMMARY | 2025-07-11 16:54 | XMS_ITS | Encounter Summary ---
Author Organization [facility] Address [address] [place] [address] Care Team Providers Care Family Law Attorney Name Role Phone Jean Gibbons MD Primary Care Provider +1 [phone] Encounter Details Date Type Department Care Team (Late st Contact Info) Description 03/08/2001 Outpatient Historical [facility] Mine Tucker MD [address] [place] [address] Thyrotoxicosis without mention of goiter or other cause, without mention of thyrotoxic crisis or storm (Primary Dx) Social History Tobacco Use Types Packs/Day Years Used Date Smoking Tobacco: Never Assessed Comments Unknown Sex and Gender Information Value Date Recorded Sex Assigned at Not on file Legal Sex Female 4:08 AM DEMURRAGE CLERK Gender Identity Not on file Sexual Orientation [...] R/O COVID-19 10/21/2020 10/21/2020 10/28/2021 9:17 PM DEMURRAGE CLERK documented as of this encounter Care Teams Family Law Attorney Relationship Specialty Start Date End Date Jean Gibbons MD [address] [place] [address] PCP - General Family Practice 04/09/18 documented as of this encounter
--- OUTSIDE RECORDS SUMMARY | 2025-07-11 16:54 | XMS_ITS | Encounter Summary ---
Author Organization [facility] Address [address] [place] [address] Care Team Providers Care Tube Bending Machine Operator Name Role Phone Jean Gibbons MD Primary Care Provider +1 [phone] Encounter Details Date Type Department Care Team (Latest Contact Info) Description 12/09/2003 Outpatient Historical [facility] Medicine [place] [address] [address] Ben Winters DO NO ADDRESS ON FILE ABDOMINAL PAIN UNSPEC SITE (Primary Dx); DIARRHEA NOS Social History Tobacco Use Types Packs/Day Years Used Date Smoking Tobacco: Never Assessed Comments Unknown Sex and Gender Information Value Date Recorded Sex Assigned at Not on file Legal Sex Female 4:08 AM PEPPER CUTTER Gender Identity Not on file Sexual Orientation Not on file documented as of this encounter Plan of Treatment Not on file documented as of this encounter Visit Diagnoses Diagnosis Abdominal pain, unspecified site- Primary Diarrhea documented in this encounter Additional Health Concerns Infection Onset Date Last Indicated Resolved Time R/O COVID-19 10/21/2020 10/21/2020 10/28/2021 9:17 PM PEPPER CUTTER documented as of this encounter Care Teams Tube Bending Machine Operator Relationship Specialty Start Date End Date Jean Gibbons MD [address] [address] PCP - General Family Practice 04/09/18 documented as of this encounter
--- OUTSIDE RECORDS SUMMARY | 2025-07-11 16:54 | XMS_ITS | Encounter Summary ---
Author Organization [facility] Address [address] [place] [address] Care Team Providers Care Second Language Tutor Name Role Phone Jean Gibbons MD Primary Care Provider +1 [phone] Encounter Details Date Type Department Care Team (Late st Contact Info) Description 07/04/2015 Nurse Triage Report [id number] ABSTRACTION Nat Arnold RN Social History Tobacco Use Types Packs/Day Years Used Date Smoking Tobacco: Former Cigarettes Q uit: 08/12/1990 Smokeless Tobacco: Never Comments:quit in the Alcohol Use Standard Drinks/Week Comments No 0 (1 standard drink = 0.6 oz pur e alcohol) Comments No Sex and Gender Information Value Date Recorded Sex Assigned at Not on file Legal Sex Female 4:08 AM REPAIRER PUMP Gender Identity Not on file Sexual Orientation Not on file Occupation Industry Job Start Date Job End Date Not on file Not on file Not on file Not on file documented as of this encounter Progress Notes * Nat Arnold RN - 07/04/2015 7:54 PM CDT CHART DOCUMENTATION ONLY Call Type: Triage Call Presenting Problem: I have questions about the mumps, my jaw is really swollen. Report feedback to JACOB Bell. Associated Symptoms: ear swelling, jaw swollen, below the ear and sore, hurts when chew, inside of ear itchey Onset: 8 hours Location: right side Pain Assessment: 1 - 10 with 10 being the most severe pain 6 Treatment so far for current presenting problem: ice pack, tramadol History (Clinical Problems): (HTN) Medications: MEDS REVIEWED WITH PATIENT PER EPIC LIST Medication reactions: MEDS REVIEWED WITH PATIENT PER EPIC LIST <<<<<<<< TRIAGE NOTE >>>>>>>> Triage Note: Trucking Contractor Nat Arnold added this note on Jul 04 2015 7:53PM: Patient plans to call Dr Office in the AM <<<<<<<< TRIAGE/OUTCOME >>>>>>>> Guideline Title: Ear: Symptoms Recommended Disposition: See Provider within 24 hours Original Inclination: Call Provider/See in 24 Intended Action: Call or See Provider within 24 hrs Physician Contacted: No Constant or intermittent dull earache, throbbing in ear(s) or feeling of fullness; may interfere with sleep or ability to carry out normal activities ? YES documented in this encounter Plan of Treatment Not on file documented as of this encounter Visit Diagnoses Not on filedocumented in this encounter Additional Health Concerns Infection Onset Date Last Indicated Resolved Time R/O COVID-19 10/21/2020 10/21/2020 10/28/2021 9:17 PM REPAIRER PUMP documented as of this encounter Care Teams Second Language Tutor Relationship Specialty Start Date End Date Jean Gibbons MD [address] [address] PCP - General Family Practice 04/09/18 documented as of this encounter
--- OUTSIDE RECORDS SUMMARY | 2025-07-11 16:54 | XMS_ITS | Encounter Summary ---
Author Organization [facility] Address [address] [place] [address] Care Team Providers Care Steam Station Supervisor Name Role Phone Jean Gibbons MD Primary Care Provider [phone] [phone] Encounter Details Date Type Department Care Team (Latest Contact Info) Description 04/20/2000 Outpatient Historical [facility] [place] [facility] [place] [address] [place] [address] David Bailey, DPM NO ADDRESS ON FILE Hallux valgus (Primary Dx) Social History Tobacco Use Types Packs/Day Years Used Date Smoking Tobacco: Never Assessed Comments Unknown Sex and Gender Information Value Date Recorded Sex Assigned at Not on file Legal Sex Female 4:08 AM HOT DIP PLATER Gender Identity Not on file Sexual Orientation Not on file documented as of this encounter Plan of Treatment Not on file documented as of this encounter Visit Diagnoses Diagnosis Hallux valgus- Primary Hallux valgus (acquired) documented in this encounter Additional Health Concerns Infection Onset Date Last Indicated Resolved Time R/O COVID-19 10/21/2020 10/21/2020 10/28/2021 9:17 PM HOT DIP PLATER documented as of this encounter Care Teams Steam Station Supervisor Relationship Specialty Start Date End Date Jean Gibbons MD [address] [place] [address] PCP - General Family Practice 04/09/18 documented as of this encounter
--- OUTSIDE RECORDS SUMMARY | 2025-07-11 16:54 | XMS_ITS | Encounter Summary ---
Author Organization [facility] Address [address] [place] [address] Care Team Providers Care Brineyard Supervisor Name Role Phone Jean Gibbons MD Primary Care Provider +1 [phone] Encounter Details Date Type Department Care Team (Latest Contact Info) Description 02/08/2004 Outpatient Historical [facility] Medicine [place] [address] [address] Ben Winters DO NO ADDRESS ON FILE EDEMA (Primary Dx) Social History Tobacco Use Types Packs/Day Years Used Date Smoking Tobacco: Never Assessed Comments Unknown Sex and Gender Information Value Date Recorded Sex Assigned at Not on file Legal Sex Female 4:08 AM DISPLAYER Gender Identity Not on file Sexual Orientation Not on file documented as of this encounter Plan of Treatment Not on file documented as of this encounter Visit Diagnoses Diagnosis Edema- Primary documented in this encounter Additional Health Concerns Infection Onset Date Last Indicated Resolved Time R/O COVID-19 10/21/2020 10/21/2020 10/28/2021 9:17 PM DISPLAYER documented as of this encounter Care Teams Brineyard Supervisor Relationship Specialty Start Date End Date Jean Gibbons MD [address] [address] PCP - General Family Practice 04/09/18 documented as of this encounter
--- OUTSIDE RECORDS SUMMARY | 2025-07-11 16:54 | XMS_ITS | Encounter Summary ---
Author Organization [facility] Address [address] [place] [address] Care Team Providers Care Investment Counselor Name Role Phone Jean Gibbons MD Primary Care Provider +1 [phone] Encounter Details Date Type Department Care Team (Late st Contact Info) Description 04/20/2000 Outpatient Historical [facility] Mine Tucker MD [address] [place] [address] Thyrotoxicosis without mention of goiter or other cause, without mention of thyrotoxic crisis or storm (Primary Dx) Social History Tobacco Use Types Packs/Day Years Used Date Smoking Tobacco: Never Assessed Comments Unknown Sex and Gender Information Value Date Recorded Sex Assigned at Not on file Legal Sex Female 4:08 AM NUMERICAL CONTROL PROGRAMMER Gender Identity Not on file Sexual Orientation [...] R/O COVID-19 10/21/2020 10/21/2020 10/28/2021 9:17 PM NUMERICAL CONTROL PROGRAMMER documented as of this encounter Care Teams Investment Counselor Relationship Specialty Start Date End Date Jean Gibbons MD [address] [place] [address] PCP - General Family Practice 04/09/18 documented as of this encounter
--- OUTSIDE RECORDS SUMMARY | 2025-07-11 16:54 | XMS_ITS | Encounter Summary ---
Author Organization [facility] Address [address] [place] [address] Care Team Providers Care Nail Machine Operator Name Role Phone Jean Gibbons MD Primary Care Provider +1 [phone] Encounter Details Date Type Department Care Team (Late st Contact Info) Description 05/20/2018 Ancillary Orders [facility] [address] [place] [address] Amberly Lima FNP [address] [place] [address] Breast tenderness in female Social History Tobacco Use Types Packs/Day Years Used Date Smoking Tobacco: Former Cigarettes Q uit: 08/12/1990 Smokeless Tobacco: Never Comments:quit in the Alcohol Use Standard Drinks/Week Comments No 0 (1 standard drink = 0.6 oz pur e alcohol) Comments No Sex and Gender Information Value Date Recorded Sex Assigned at Not on file Legal Sex Female 4:08 AM ASSOCIATE PROFESSOR OF MANAGEMENT Gender Identity Not on file Sexual Orientation Not on file Occupation Industry Job Start Date Job End Date Not on file Not on file Not on file Not on file documented as of this encounter Plan of Treatment Not on file documented as of this encounter Results * MAMMO PRIOR STUDY (05/09/2017 12:25 PM CDT) Narrative 05/20/2018 12:25 PM CDT This exam was auto finalized to allow images to be scanned to PACS. us Amberly JAMES DIAGNOSTIC IMAGING ORDERABLES Fi nal Result * MAMMO PRIOR STUDY (05/03/2016 12:30 PM CDT) Narrative 05/20/2018 12:26 PM CDT This exam was auto finalized to allow images to be scanned to PACS. us Amberly Lima COOK'S ASSISTANT DIAGNOSTIC IMAGING ORDERABLES Fi nal Result * MAMMO PRIOR STUDY (04/15/2015 12:30 PM CDT) Narrative 05/20/2018 12:26 PM CDT This exam was auto finalized to allow images to be scanned to PACS. us Amberly Lima COOK'S ASSISTANT DIAGNOSTIC IMAGING ORDERABLES Fi nal Result * MAMMO PRIOR STUDY (04/03/2014 12:30 PM CDT) Narrative 05/20/2018 12:27 PM CDT This exam was auto finalized to allow images to be scanned to PACS. us Amberly Lima COOK'S ASSISTANT DIAGNOSTIC IMAGING ORDERABLES Fi nal Result * MAMMO PRIOR STUDY (04/15/2013 12:55 PM CDT) Narrative 05/20/2018 12:53 PM CDT This exam was auto finalized to allow images to be scanned to PACS. us Amberly Lima COOK'S ASSISTANT DIAGNOSTIC IMAGING ORDERABLES Fi nal Result * MAMMO PRIOR STUDY (04/15/2013 12:45 PM CDT) Narrative 05/20/2018 12:44 PM CDT This exam was auto finalized to allow images to be scanned to PACS. us Amberly Lima COOK'S ASSISTANT DIAGNOSTIC IMAGING ORDERABLES Fi nal Result * MAMMO PRIOR STUDY (03/25/2013 12:50 PM CDT) Narrative 05/20/2018 12:47 PM CDT This exam was auto finalized to allow images to be scanned to PACS. us Amberly Lima COOK'S ASSISTANT DIAGNOSTIC IMAGING ORDERABLES Fi nal Result * MAMMO PRIOR STUDY (02/05/2012 12:55 PM CDT) Narrative 05/20/2018 12:53 PM CDT This exam was auto finalized to allow images to be scanned to PACS. us Amberly Lima COOK'S ASSISTANT DIAGNOSTIC IMAGING ORDERABLES Fi nal Result * MAMMO PRIOR STUDY (02/05/2012 12:50 PM CDT) Narrative 05/20/2018 12:46 PM CDT This exam was auto finalized to allow images to be scanned to PACS. us Gaming Clarence COOK'S ASSISTANT DIAGNOSTIC IMAGING ORDERABLES Fi nal Result * MAMMO PRIOR STUDY (09/18/2011 12:55 PM ASSOCIATE PROFESSOR OF MANAGEMENT) Narrative 05/20/2018 12:54 PM CDT This exam was auto finalized to allow images to be scanned to PACS. us Amberly Lima COOK'S ASSISTANT DIAGNOSTIC IMAGING ORDERABLES Fi nal Result * MAMMO PRIOR STUDY (06/13/2011 12:55 PM CDT) Narrative 05/20/2018 12:54 PM CDT This exam was auto finalized to allow images to be scanned to PACS. us Amberly Lima COOK'S ASSISTANT DIAGNOSTIC IMAGING ORDERABLES Fi nal Result * MAMMO PRIOR STUDY (06/02/2011 12:45 PM CDT) Narrative 05/20/2018 12:44 PM CDT This exam was auto finalized to allow images to be scanned to PACS. us Amberly Lima COOK'S ASSISTANT DIAGNOSTIC IMAGING ORDERABLES Fi nal Result * MAMMO PRIOR STUDY (05/16/2011 12:50 PM CDT) Narrative 05/20/2018 12:47 PM CDT This exam was auto finalized to allow images to be scanned to PACS. us Mejiamartine Lima COOK'S ASSISTANT DIAGNOSTIC IMAGING ORDERABLES Fi nal Result * MAMMO PRIOR STUDY (03/31/2010 12:45 PM CDT) Narrative 05/20/2018 12:45 PM CDT This exam was auto finalized to allow images to be scanned to PACS. us Amberly Lima COOK'S ASSISTANT DIAGNOSTIC IMAGING ORDERABLES Fi nal Result * MAMMO PRIOR STUDY (03/04/2009 12:45 PM CDT) Narrative 05/20/2018 12:45 PM CDT This exam was auto finalized to allow images to be scanned to PACS. us Amberly Lima COOK'S ASSISTANT DIAGNOSTIC IMAGING ORDERABLES Fi nal Result * MAMMO PRIOR STUDY (01/19/2009 1:00 PM CDT) Narrative 05/20/2018 12:57 PM CDT This exam was auto finalized to allow images to be scanned to PACS. us Amberly Lima COOK'S ASSISTANT DIAGNOSTIC IMAGING ORDERABLES Fi nal Result * MAMMO PRIOR STUDY (01/19/2009 12:45 PM CDT) Narrative 05/20/2018 12:45 PM CDT This exam was auto finalized to allow images to be scanned to PACS. us Amberly Lima COOK'S ASSISTANT DIAGNOSTIC IMAGING ORDERABLES Fi nal Result * MAMMO PRIOR STUDY (09/10/2008 1:00 PM CDT) Narrative 05/20/2018 12:57 PM CDT This exam was auto finalized to allow images to be scanned to PACS. us Amberly Lima COOK'S ASSISTANT DIAGNOSTIC IMAGING ORDERABLES Fi nal Result * MAMMO PRIOR STUDY (09/10/2008 12:50 PM CDT) Narrative 05/20/2018 12:46 PM CDT This exam was auto finalized to allow images to be scanned to PACS. us Amberly Lima COOK'S ASSISTANT DIAGNOSTIC IMAGING ORDERABLES Fi nal Result * MAMMO PRIOR STUDY (03/02/2008 1:00 PM CDT) Narrative 05/20/2018 12:58 PM CDT This exam was auto finalized to allow images to be scanned to PACS. Amberly Clarence [facility] DIAGNOSTIC IMAGING ORDERABLES Fi nal Result * MAMMO PRIOR STUDY (03/02/2008 12:50 PM CDT) Narrative 05/20/2018 12:46 PM CDT This exam was auto finalized to allow images to be scanned to PACS. Amberly Clarence [facility] DIAGNOSTIC IMAGING ORDERABLES Fi nal Result documented in this encounter Visit Diagnoses Diagnosis Breast tenderness in female Mastodynia Breast tenderness in female Mastodynia Breast tenderness in female Mastodynia Breast tenderness in female Mastodynia Breast tenderness in female Mastodynia Breast tenderness in female Mastodynia Breast tenderness in female Mastodynia Breast tenderness in female Mastodynia Breast tenderness in female Mastodynia Breast tenderness in female Mastodynia Breast tenderness in female Mastodynia Breast tenderness in female Mastodynia Breast tenderness in female Mastodynia Breast tenderness in female Mastodynia Breast tenderness in female Mastodynia Breast tenderness in female Mastodynia Breast tenderness in female Mastodynia Breast tenderness in female Mastodynia Breast tenderness in female Mastodynia Breast tenderness in female Mastodynia Breast tenderness in female Mastodynia Breast tenderness in female Mastodynia documented in this encounter Additional Health Concerns Infection Onset Date Last Indicated Resolved Time R/O COVID-19 10/21/2020 10/21/2020 10/28/2021 9:17 PM ASSOCIATE PROFESSOR OF MANAGEMENT Assessment Noted Time PHQ-9 Depression Total Score: 1 01/01/20 18 11:00 AM ASSOCIATE PROFESSOR OF MANAGEMENT documented as of this encounter Care Teams Nail Machine Operator Relationship Specialty Start Date End Date Jean Gibbons MD [address] [phone] PCP - General Family Practice 04/09/18 documented as of this encounter
--- OUTSIDE RECORDS SUMMARY | 2025-07-11 16:54 | XMS_ITS | Encounter Summary ---
Author Organization [facility] Address [address] [place] [address] Care Team Providers Care Experience Design Director Name Role Phone Jean Gibbons MD Primary Care Provider [phone] [phone] Encounter Details Date Type Department Care Team (Late st Contact Info) Description 10/24/2007 Outpatient Historical [facility] Medicine [place] [address] [address] Deanna Parada NP NO ADDRESS ON FILE Social History Tobacco Use Types Packs/Day Years Used Date Smoking Tobacco: Never Assessed Comments Unknown Sex and Gender Information Value Date Recorded Sex Assigned at Not on file Legal Sex Female 4:08 AM SIZING MACHINE AND DRIER OPERATOR Gender Identity Not on file Sexual Orientation Not on file documented as of this encounter Plan of Treatment Not on file documented as of this encounter Visit Diagnoses Not on filedocumented in this encounter Additional Health Concerns Infection Onset Date Last Indicated Resolved Time R/O COVID-19 10/21/2020 10/21/2020 10/28/2021 9:17 PM SIZING MACHINE AND DRIER OPERATOR documented as of this encounter Care Teams Experience Design Director Relationship Specialty Start Date End Date Jean Gibbons MD [address] [address] PCP - General Family Practice 04/09/18 documented as of this encounter
--- OUTSIDE RECORDS SUMMARY | 2025-07-11 16:54 | XMS_ITS | Encounter Summary ---
Author Organization [facility] Address [address] [place] [address] Care Team Providers Care Manager Of Digital Name Role Phone Jean Gibbons MD Primary Care Provider [phone] [phone] Encounter Details Date Type Department Care Team (Late st Contact Info) Description 10/19/2003 Outpatient Historical [facility] Medicine [place] [address] [address] Neo Aceves MD [address] [phone] Social History Tobacco Use Types Packs/Day Years Used Date Smoking Tobacco: Never Assessed Comments Unknown Sex and Gender Information Value Date Recorded Sex Assigned at Not on file Legal Sex Female 4:08 AM COST CONSULTANT Gender Identity Not on file Sexual Orientation Not on file documented as of this encounter Plan of Treatment Not on file documented as of this encounter Visit Diagnoses Not on filedocumented in this encounter Additional Health Concerns Infection Onset Date Last Indicated Resolved Time R/O COVID-19 10/21/2020 10/21/2020 10/28/2021 9:17 PM COST CONSULTANT documented as of this encounter Care Teams Manager Of Digital Relationship Specialty Start Date End Date Jean Gibbons MD [address] [address] PCP - General Family Practice 04/09/18 documented as of this encounter
--- OUTSIDE RECORDS SUMMARY | 2025-07-11 16:54 | XMS_ITS | Encounter Summary ---
Author Organization [facility] Address [address] [place] [address] Care Team Providers Care Transfer Station Attendant Name Role Phone Jean Gibbons MD Primary Care Provider [phone] [phone] Encounter Details Date Type Department Care Team (Latest Contact Info) Description 02/23/2004 Outpatient Historical [facility] Ian Ryan, DO [address] [place] [address] [place] [address] ADMINISTRTVE ENCOUNT NOS (Primary Dx) Social History Tobacco Use Types Packs/Day Years Used Date Smoking Tobacco: Never Assessed Comments Unknown Sex and Gender Information Value Date Recorded Sex Assigned at Not on file Legal Sex Female 4:08 AM CUFF MAKER Gender Identity Not on file Sexual Orientation Not on file documented as of this encounter Plan of Treatment Not on file documented as of this encounter Visit Diagnoses Diagnosis Encounters for unspecified administrative purpose- Primary documented in this encounter Additional Health Concerns Infection Onset Date Last Indicated Resolved Time R/O COVID-19 10/21/2020 10/21/2020 10/28/2021 9:17 PM CUFF MAKER documented as of this encounter Care Teams Transfer Station Attendant Relationship Specialty Start Date End Date Jean Gibbons MD [address] [place] [phone] PCP - General Family Practice 04/09/18 documented as of this encounter
--- OUTSIDE RECORDS SUMMARY | 2025-07-11 16:54 | XMS_ITS | Encounter Summary ---
Author Organization [facility] Address [address] [place] [address] Care Team Providers Care Buttonhole Facer Name Role Phone Jean Gibbons MD Primary Care Provider +1 [phone] Encounter Details Date Type Department Care Team (Latest Contact Info) Description 08/31/2003 Outpatient Historical [facility] Medicine [address] [address] Ben Winters DO NO ADDRESS ON FILE MYALGIA AND MYOSITIS NOS (Primary Dx); Sprain of neck; OSTEOARTHROS NOS-UNSPEC Social History Tobacco Use Types Packs/Day Years Used Date Smoking Tobacco: Never Assessed Comments Unknown Sex and Gender Information Value Date Recorded Sex Assigned at Not on file Legal Sex Female 4:08 AM SET UP OPERATOR Gender Identity Not on file Sexual Orientation Not on file documented as of this encounter Plan of Treatment Not on file documented as of this encounter Visit Diagnoses Diagnosis Myalgia and myositis, unspecified- Primary Mylagia and myositis, unspecified Sprain of neck Neck sprain and strain Osteoarthrosis, unspecified whether generalized or localized, unspecified site documented in this encounter Additional Health Concerns Infection Onset Date Last Indicated Resolved Time R/O COVID-19 10/21/2020 10/21/2020 10/28/2021 9:17 PM SET UP OPERATOR documented as of this encounter Care Teams Buttonhole Facer Relationship Specialty Start Date End Date Jean Gibobns MD [address] [address] PCP - General Family Practice 04/09/18 documented as of this encounter
--- OUTSIDE RECORDS SUMMARY | 2025-07-11 16:54 | XMS_ITS | Encounter Summary ---
Author Organization [facility] Address [address] [place] [address] Care Team Providers Care Sole Splitter Name Role Phone Jean Gibbosn MD Primary Care Provider [phone] [phone] Reason for Referral * Outpatient Services (Routine) - Closed Specialty Diagnoses / Procedures Referred By Mack lewis Referred To Contact Diagnoses Breast tenderness in female Procedures MAMMO BREAST US [facility] Amberly Lima FNP Phone: tel: fax: [facility] Pre-Registration Exline CALL TO MAKE APPOINTMENT ONLY [address] [place] [address] Phone: tel: fax: Referral ID Status Reason Start Date Expiration Date Visits Re quested Visits Authorized [id number] Closed 05/01/2018 06/01/2019 1 1 Encounter Details Date Type Department Care Team (Late st Contact Info) Description 05/01/2018 Ancillary Orders [facility] [place] [address] [facility] [address] [place] [phone] Amberly Lima FNP [address] [place] [phone] Breast tenderness in female Social History Tobacco Use Types Packs/Day Years Used Date Smoking Tobacco: Former Cigarettes Q uit: 08/12/1990 Smokeless Tobacco: Never Comments:quit in the Alcohol Use Standard Drinks/Week Comments No 0 (1 standard drink = 0.6 oz pur e alcohol) Comments No Sex and Gender Information Value Date Recorded Sex Assigned at Not on file Legal Sex Female 4:08 AM BIOLOGICAL SCIENTIST Gender Identity Not on file Sexual Orientation Not on file Occupation Industry Job Start Date Job End Date Not on file Not on file Not on file Not on file documented as of this encounter Plan of Treatment Not on file documented as of this encounter Results * (ABNORMAL) MAMMO BREAST US [employer] (05/01/2018 1:03 PM CDT) Anatomical Region Laterality Modality Bilateral Ultrasound 05/01/2018 1:03 PM CDT Impressions 05/03/2018 9:22 AM CDT : 1. The redness of the medial right breast seems to have resolved as no redness or skin thickening is identified on today's exam. Clinical follow-up of the resolving mastitis is recommended. The patient will continue to monitor her breast as well and return sooner, if there are any concerning changes. 2. Several probable complicated cysts in both breasts for which short interval follow-up imaging is recommended. 3. Follow-up ultrasound of the right nipple with standoff pad to confirm no underlying mass. The patient was given verbal and written results/recommendations. BI-RADS ASSESSMENT: 3 - Probably Benign Recommendation: Short interval follow-up is recommended bilateral mammogram and ultrasound in 6 months. Clinical follow-up of resolving mastitis is also recommended. Patient received a result/recommendation letter. [id number] Narrative 05/03/2018 9:22 AM CDT EXAM: MAMMO DIAGNOSTIC BILATERAL W OR WO CAD, MAMMO BREAST US [facility] [employer] [facility] INDICATION: 72-year-old female presents with tenderness and redness of her right breast which has improved following a course of antibiotics. The original redness started approximately one month ago. COMPARISON: Mammogram 05/09/2017, 05/03/2016, 04/15/2015, 04/03/2014. TECHNIQUE: MLO and CC digital mammographic images were acquired. This digital mammogram was also analyzed by the Computer Aided Detection System (CAD). FINDINGS: The breasts are heterogeneously dense, which may obscure small masses. There are numerous bilateral circumscribed waxing and waning masses consistent with cysts. There is no evidence of skin thickening in either breast, but specifically in the area of previous redness of the right breast. There are no suspicious masses, calcifications, or architectural distortions in the right breast. There is a slightly more prominent oval mass in the 12:00 left breast for which targeted ultrasound will be obtained. The area of redness in the right breast will also be evaluated with ultrasound. TECHNIQUE: Multiple real-time hinojosa-scale images of the right medial breast in the area where the redness was located are performed. In addition color Doppler was used to assess vascular flow. FINDINGS: No skin thickening is identified in the medial right breast. A complicated cyst measuring 3 x 3 x 3 mm is present at 3:00, 5 cm from the nipple. A second complicated cyst measuring 7 x 7 x 7 mm is present at 3:00, 5 cm from the nipple. The nipple is retracted which is not a new finding according to the patient. The nipple is imaged on several images with blood flow noted. This would be better evaluated with a standoff pad on follow-up ultrasound. In the left breast at 12:00, 2 cm from the nipple there is a complicated cyst measuring 3 x 9 x 8 mm. In the left breast 12:00, 2 cm from the nipple there is a simple cyst measuring 11 mm. This simple cyst may represent the mammographic mass. At 12:00, 3 cm from the nipple, there is a complicated cyst measuring 5 x 7 x 6 mm. An additional simple cyst is present in the left breast at 1:00, 1 cm from the nipple. Amberly Lima [facility] MAMMO ORDERABLES Final Result documented in this encounter Visit Diagnoses Diagnosis Breast tenderness in female Mastodynia Breast tenderness in female Mastodynia documented in this encounter Additional Health Concerns Infection Onset Date Last Indicated Resolved Time R/O COVID-19 10/21/2020 10/21/2020 10/28/2021 9:17 PM BIOLOGICAL SCIENTIST Assessment Noted Time PHQ-9 Depression Total Score: 1 01/01/20 18 11:00 AM BIOLOGICAL SCIENTIST documented as of this encounter Care Teams Sole Splitter Relationship Specialty Start Date End Date Jean Gibbons MD [address] [address] PCP - General Family Practice 04/09/18 documented as of this encounter
--- OUTSIDE RECORDS SUMMARY | 2025-07-11 16:54 | XMS_ITS | Encounter Summary ---
Author Organization [facility] Address [address] [place] [address] Care Team Providers Care Greens Planter Name Role Phone Jean Gibbons MD Primary Care Provider [phone] [phone] Encounter Details Date Type Department Care Team (Latest Contact Info) Description 10/04/2002 Outpatient Historical [facility] [address] [place] [address] Non-Staff, Physician NO ADDRESS ON FILE CHEST PAIN NOS (Primary Dx) Social History Tobacco Use Types Packs/Day Years Used Date Smoking Tobacco: Never Assessed Comments Unknown Sex and Gender Information Value Date Recorded Sex Assigned at Not on file Legal Sex Female 4:08 AM R D INTERN Gender Identity Not on file Sexual Orientation Not on file documented as of this encounter Plan of Treatment Not on file documented as of this encounter Visit Diagnoses Diagnosis Chest pain, unspecified- Primary documented in this encounter Additional Health Concerns Infection Onset Date Last Indicated Resolved Time R/O COVID-19 10/21/2020 10/21/2020 10/28/2021 9:17 PM R D INTERN documented as of this encounter Care Teams Greens Planter Relationship Specialty Start Date End Date Jean Gibbons MD [address] [place] [phone] PCP - General Family Practice 04/09/18 documented as of this encounter
--- OUTSIDE RECORDS SUMMARY | 2025-07-11 16:54 | XMS_ITS | Clinical Summary ---
Author Organization [facility] Address [address] [facility] [address] [place] [address] Care Team Providers Care Transcribing Operators Supervisor Name Role Phone Jean Gibbons MD Primary Care Provider [phone] [phone] Allergies Active Allergy Reactions Criticality Noted Date Comments Citalopram Unknown Clarithromycin Unknown Can take Zithromax Clindamycin Hcl Unknown Doxepin Unknown Hydrocodone-Acetaminophen Unknown Ibuprofen Unknown Levofloxacin Unknown Lisinopril Unknown Naproxen Sodium Swelling,Unknown Low Oxybutynin Abdominal Pain Low 09/23/2018 Penicillins Unknown Gets severe yeast infection Pseudoephedrine Hcl Unknown Red Dye Swelling Low 04/21/2010 Sulfa (Sulfonamide Antibiotics) Hives High Venlafaxine Other (See Comments) 03/24/2014 Effexor causes night sweats and nausea Medications Red Yeast Rice Extract 600 mg Oral Cap Take 600 mg by mouth daily. Active OMEGA-3 FATTY ACIDS (FISH OIL ORAL) Take 1 Cap by mouth daily. Active Cranberry 400 mg Capsule Take by mouth daily. Active Back BraceIndications:M idline low back pain with left-sided sciatica Wear back brace while awake. 1 Each 0 5 Active DOCUSATE CALCIUM (STOOL SOFTENER ORAL) Take by mouth. Activ e cetirizine (ZyrTEC) 10 mg tablet Take 10 mg by mouth daily. Active OTHER Vit d3 . Active MILK THISTLE ORAL Take by mouth. Active mupirocin (BACTROBAN) 2 % Ointment APPLY EXTERNALLY TO THE AFFECTED AREA TWICE DAILY 22 Gram 0 Active fluticasone propionate (FLONASE) 50 mcg/spray [place], Suspension nasal inhaler SHAKE LIQUID AND USE 2 SPRAYS IN EACH NOSTRIL DAILY 48 Gram 5 0 Active buPROPion (WELLBUTRIN) 75 mg tabletIndications: Moderate episode of recurrent major depressive disorder (CMS/HCC),Anxiety, generalized TAKE 1 TABLET(75 MG) BY MOUTH TWICE DAILY 180 Tablet 1 1 Active Eliquis 5 mg tablet TAKE 1 TABLET(5 MG) BY MOUTH TWICE DAILY 90 Tablet 1 Active tiZANidine (ZANAFLEX) 2 mg TabletIndications: Spinal stenosis of lumbar region without neurogenic claudication,Osteo arthritis of spine with radiculopathy, cervical region,Chronic 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 60 Tablet 5 1 Active metoprolol tartrate (LOPRESSOR) 50 mg tablet Take 1 Tablet (50 mg) by mouth 2 times daily. 60 Tablet 2 1 Active furosemide (Lasix) 20 mg tablet Take 1 Tablet (20 mg) by mouth 2 times daily. 1 Active hydrOXYzine HCL (ATARAX) 25 mg tabletIndications: Anxiety, generalized,Modera te episode of recurrent major depressive disorder (CMS/HCC) Take 1 Tablet (25 mg) by mouth 3 times daily as needed for Anxiety or Insomnia. 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 180 Tablet 2 1 Active propylthiouraciL (PTU) 50 mg tabletIndications: Hyperthyroidism TAKE 1 TABLET(50 MG) BY MOUTH THREE TIMES DAILY 270 Tablet 1 Active Active Problems Problem Noted Date Diagnosed Date Rotator cuff syndrome of right shoulder 03/31/20 21 Myalgia due to statin 01/31/2021 Chronic systolic congestive heart failure 2019 Moderate episode of recurrent major depressive d isorder 11/18/2019 Situational depression 10/17/2019 Osteoarthritis of spine with radiculopathy, cerv ical region 12/26/2018 [facility] prescription opiate use 07/02/2018 Spinal stenosis of lumbar re gion without neurogenic claudication 04/09/2018 Venous stasis dermatitis of both lower extremiti es 12/21/2017 Bilateral chronic serous otitis media 08/09/2015 Midline low back pain with left-sided sciatica 0 06/21/2015 Allergic rhinitis 08/11/2013 Family history of colon cancer 08/22/2011 Overview (09/23/2012): Colonoscopy: 09/22 (no polyps, repeat in 5 yrs) Personal history of colonic polyps 08/22/2011 HTN (hypertension) 04/11/2011 Primary osteoarthritis of both shoulders Hyperthyroidism Overview (09/23/2012): TSH: 02/21 Anxiety, generalized Hyperlipidemia Overview (09/23/2012): LDL: 160 (03/23) Resolved Problems Problem Noted Date Diagnosed Date Resolved Date COPD (chronic obstructive pulmonary disease) 4 07/02/2018 Anal fissure 12/29/2013 07/02/2018 Breast discharge 12/29/2013 06/07/2014 Chronic bronchitis 11/15/2012 8 Colon cancer screening 09/23/201211/27 Overview (09/23/2012): Colonoscopy: 09/22 (no polyps, repeat in 5 yrs) Chronic back pain 09/26/2011 04/09/2018 Seborrheic keratosis 06/07/2011 018 Other and unspecified noninf ectious gastroenteritis and colitis(558.9) 11/27 Immunizations Immunization Administration Dates Next Due (PNEUMOVAX 23)(50 YRS UP) PN EUMOCOCCAL POLYSACCHARIDE (PPV23) 0.5 ML, IM 10/16/2012 (SPIKEVAX) (12 YRS UP PRIMAR Y SERIES) COVID-19 VACCINE - MRNA-1273(PF) 100 MCG/0.5 ML IM SUSP 02/10/2021,01/13/2021 (TDVAX)(7 YRS UP) TETANUS AN D DIPHTHERIA TOXOIDS, ADSORBED (2 LF OF TETANUS TOXOID AND 2 LF OF DIPHTHERIA TOXOID), 0.5ML (PF), IM 01/17/2006,11/12/1997 INFLUENZA VACCINE HIGH DOSE QUADRIVALENT 65 YR UP PF IM 08/11/2020 Influenza Seasonal Unspecifi ed Formulation IM 08/11/2020,08/13/2015,08/07/2014,07/31,08/15/2012,09/08/2011,08/27/2007 ,08/27/2006,08/07/2005,08/07/2000 Influenza Vaccine High Dose 65+ Yrs IM 0 08/11/2019,08/09/2017,08/18/2016,08/15 Influenza Vaccine Nasal 08/09/2018 Influenza Vaccine Split 3+ Yrs IM 08/16/2010,,09/11/2008 Influenza Vaccine Tri Adjuva nted 65+ PF IM 08/09/2018 PREVNAR (PCV13) pneumococcal 13-valent conjugate Vaccine 06/07/2015 Pneumococcal Polysaccharide Vacc 23-anthony IM SCHIP 10/16/2012 Family History Medical History Relation Name Comments Cancer Maternal Grandfather bladder cancer Asthma Mother Breast Cancer Mother One Positive s ee media tab High Cholesterol Mother Cancer Other uncle with pros pollard and bladder ca Colon Cancer Other Diabetes Other Melanoma Other Relation Name Status Comments Maternal Grandfather Mother Other Social History Tobacco Use Types Packs/Day Years Used Date Smoking Tobacco: Former Cigarettes Q uit: 08/12/1990 Smokeless Tobacco: Never Tobacco Cessation:Counseling Given: No Comments:quit in the Alcohol Use Standard Drinks/Week Comments No 0 (1 standard drink = 0.6 oz pur e alcohol) Social Connections Answer Date Recorded In a typical week, how many times do you talk on the phone with family, friends, or neighbors? Three times a week 04/07/2020 How often do you get togethe r with friends or relatives? Patient declined 04/07/2020 How often do you attend chur or buddhist services? Never 04/07/2020 Do you belong to any clubs o r organizations such as denominational groups, unions, fraternal or athletic groups, or school groups? No 04/07/2020 How often do you attend meet ings of the clubs or organizations you belong to? Never 04/07/2020 Are you , , di vorced, , never , or living with a partner? 04/07/2020 Financial Resource Strain Answer Date R ecorded How hard is it for you to pa y for the very basics like food, housing, medical care, and heating? Not hard at all 04/07/2020 Food Insecurity Answer Date Recorded Within the past 12 months, y ou worried that your food would run out before you got the money to buy more. Never true 04/07/20 20 Within the past 12 months, t he food you bought just didn't last and you didn't have money to get more. Never true 04/07/2020 Transportation Needs Answer Date Record ed In the past 12 months, has l ack of transportation kept you from medical appointments or from getting medications? No 03/13 In the past 12 months, has l ack of transportation kept you from meetings, work, or from getting things needed for daily living? No 04/07/2020 Education Answer Date Recorded What is the highest level of school you have completed or the highest degree you have received? 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 Gender Identity Not on file Sexual Orientation Not on file Occupation Industry Job Start Date Job End Date Not on file Not on file Not on file Not on file Last Filed Vital Signs Vital Sign Reading Time Taken Comments Blood Pressure 130/56 04/26/2021 10:24 AM CDT Pulse 64 04/26/2021 10:24 AM CDT Temperature 35.9 C (96.6 F) 04/26/2021 10:24 AM CDT Respiratory Rate 16 04/26/2021 10:24 AM CDT Oxygen Saturation 99% 04/26/2021 10:24 AM CDT Inhaled Oxygen Concentration - - Weight 89 kg (196 lb 3.2 oz) 04/26/2021 10:24 AM CDT Height 167.6 cm (5' 6 ) 04/26/2021 10:24 AM CDT Body Mass Index 31.67 04/26/2021 10:24 AM CDT Plan of Treatment Health Maintenance Due Date Last Done Comments ZOSTER VACCINE (1 of 2) 1995 DTAP/TDAP/TD VACCINES (1 - Tdap) 01/18/2006 01/18/20 06, 11/12/1997 COLORECTAL SCREENING 09/11/2016 09/11/2011 RSV VACCINE (60+ or ) (1 - 1-dose 75+ series) 2020 Traditional Medicare (O) A nnual Wellness Visit 04/08/2021 04/07/2020, 01/18/2017 COVID-19 Vaccine (3 - 2023-2 5 season) 2024 02/10/2021, 01/13/2021 INFLUENZA VACCINE (#1) 2025 , 08/11/2020, 08/11/2019, Additional history exists OSTEOPOROSIS SCREENING 10/30/2027 10/30/2022 PNEUMOCOCCAL VACCINE 50+ YEARS Completed 0 06/07/2015, 10/16/2012, 10/16/2012 Procedures Procedure Name Priority Date/Time Associated Diagnosis Comments ENDOSCOPY, COLON, SCREENING Routine 09/11/2011 from Last 3 Months or Most Recently Relevant to Health Maintenance Results * ENDOSCOPY, COLON, SCREENING (09/11/2011) Ester Bell APRN GI PROCEDURE ORDJaneth RDZ Final Result from Last 3 Months or Most Recently Relevant to Health Maintenance Insurance [address] [place] [address] MEDICARE PART A AND B [employer] [facility] Advance Directives For more information, please contact: [phone] * Full Code (Latest Code Status on File) Date Activated Date Inactivated Comments 02/18/2015 12:52 PM 02/18/2015 5:48 PM * Full Code Date Activated Date Inactivated Comments 02/18/2015 11:12 AM 02/18/2015 12:52 PM * Full Code Date Activated Date Inactivated Comments 02/18/2015 10:15 AM 02/18/2015 11:12 AM * Full Code Date Activated Date Inactivated Comments 09/24/2013 9:28 AM 09/25/2013 2:01 AM Care Teams Transcribing Operators Supervisor Relationship Specialty Start Date End Date Jean Gibbons MD [address] [phone] PCP - General Family Practice 04/09/18
--- OUTSIDE RECORDS SUMMARY | 2025-07-11 16:54 | XMS_ITS | Encounter Summary ---
Author Organization [facility] Address [address] [place] [address] Care Team Providers Care Retail Solar Advisor Name Role Phone eJan Gibbons MD Primary Care Provider [phone] [phone] Encounter Details Date Type Department Care Team (Latest Contact Info) Description 08/07/2005 Outpatient Historical [facility] [place] [address] [address] Neo Aceves MD [address] [address] Vaccine for influenza (Primary Dx) Social History Tobacco Use Types Packs/Day Years Used Date Smoking Tobacco: Never Assessed Comments Unknown Sex and Gender Information Value Date Recorded Sex Assigned at Not on file Legal Sex Female 4:08 AM BRYOLOGIST Gender Identity Not on file Sexual Orientation Not on file documented as of this encounter Plan of Treatment Not on file documented as of this encounter Visit Diagnoses Diagnosis Vaccine for influenza- Primary Need for prophylactic vaccination and inoculation against influenza documented in this encounter Additional Health Concerns Infection Onset Date Last Indicated Resolved Time R/O COVID-19 10/21/2020 10/21/2020 10/28/2021 9:17 PM BRYOLOGIST documented as of this encounter Care Teams Retail Solar Advisor Relationship Specialty Start Date End Date Jean Gibbons MD [address] [phone] PCP - General Family Practice 04/09/18 documented as of this encounter
--- OUTSIDE RECORDS SUMMARY | 2025-07-11 16:54 | XMS_ITS | Encounter Summary ---
Author Organization [facility] Address [address] [place] [address] Care Team Providers Care Strategic Insights Lead Name Role Phone Jean Gibbons MD Primary Care Provider [phone] [phone] Reason for Referral * Radiology Services (Routine) - Closed Specialty Diagnoses / Procedures Referred By Contac t Referred To Contact Radiology Diagnoses Abnormal mammogram Procedures MAMMO DIAG BILAT 3D SHAI W OR WO CAD MAMMO DIAGNOSTIC BILATERAL W OR WO CAD CHG DIAGNOSTIC MAMMOGRAPHY COMPUTER-AIDED DETCJ BI CHG DIGITAL BREAST TOMOSYNTHESIS BILATERAL Jean Gibbons MD [address] [address] Phone: tel: fax: [facility] [address] [facility] [address] [place] [address] Phone: tel: fax: Referral ID Status Reason Start Date Expiration Date V isits Requested Visits Authorized [id number] Closed F MC TO SCHEDULE (SGF) 09/20/2018 10/21/2019 1 1 R SALES MANAGER Encounter Details Date Type Department Care Team (Late st Contact Info) Description 10/11/2018 Ancillary Orders [facility] [address] [facility] [address] [place] [address] Jean Gibbons MD [address] [address] Abnormal mammogram Social History Tobacco Use Types Packs/Day Years Used Date Smoking Tobacco: Former Cigarettes Q uit: 08/12/1990 Smokeless Tobacco: Never Comments:quit in the Alcohol Use Standard Drinks/Week Comments No 0 (1 standard drink = 0.6 oz pur e alcohol) Comments No Sex and Gender Information Value Date Recorded Sex Assigned at Not on file Legal Sex Female 4:08 AM SOLAR SALES MANAGER Gender Identity Not on file Sexual Orientation Not on file Occupation Industry Job Start Date Job End Date Not on file Not on file Not on file Not on file documented as of this encounter Plan of Treatment Not on file documented as of this encounter Results * (ABNORMAL) MAMMO DIAG BILAT 3D SHAI W OR WO CAD (10/14/2018 3:38 PM SOLAR SALES MANAGER) Anatomical Region Laterality Modality Breast Bilateral Mammography 10/14/2018 3:38 PM SOLAR SALES MANAGER Impressions 10/15/2018 6:48 AM SOLAR SALES MANAGER : Stable to smaller sonographic appearance of bilateral complicated cysts versus masses. Overall, the mammogram appears stable. An additional six month follow-up mammogram and ultrasound is recommended to ensure stability. At that point, follow-up could be extended out to one year. The patient was given verbal and written results/recommendations. BI-RADS ASSESSMENT: 3 - Probably Benign RECOMMENDATION: Bilateral diagnostic mammography and bilateral breast ultrasound in six months. [id number] Narrative 10/15/2018 6:48 AM SOLAR SALES MANAGER EXAM: MAMMO DIAG BILAT 3D SHAI W OR WO CAD, MAMMO BREAST US BILAT LTD INDICATION: 73-year-old female presents for six month follow-up of bilateral probably benign masses versus complicated cysts in both breasts. The right nipple will also be re-evaluated. The patient states she has no current symptoms or complaints. No report of skin changes or new lumps. COMPARISON: Mammogram 05/01/2018, 05/09/2017, 05/03/2016, 04/15/2015, 04/03/2014, 03/25/2013, 02/05/2012. MAMMOGRAM TECHNIQUE: 3-D MLO and CC digital tomosynthesis images were acquired. Synthesized 2-D images (C-view) were generated. This digital mammogram was also analyzed by the Computer Aided Detection System (CAD). FINDINGS: The breasts are heterogeneously dense, which may obscure small masses. Bilateral focal asymmetries and circumscribed masses are again identified. Bilateral scattered benign-appearing stable calcifications are also present. No new suspicious masses, calcifications, or architectural distortions are identified in either breast.. ULTRASOUND TECHNIQUE: Multiple real-time hinojosa-scale images of the bilateral breasts are performed as described below. Color Doppler was used to assess vascular flow. FINDINGS: In the right breast at 2:00, 3 cm from the nipple, there is a circumscribed hypoechoic mass versus complicated cyst measuring 0.4 x 0.4 x 0.5 cm. This has decreased in size compared to the prior exam. In the right breast at 1:00, 4 cm from the nipple there is a tiny cyst measuring 0.3 x 0.3 x 0.3 cm. No mass could be reproduced in the right breast at 3:00, 5 cm from the nipple in the area of previous redness. The right subareolar region and nipple appear normal. The patient states she has had subtle nipple retraction for years. In the left breast, a complicated cyst versus mass measuring 0.5 x 0.6 x 0.5 cm is identified at 12:00, 3 cm from the nipple. This is slightly smaller than on the prior study. The cluster of cysts in the left breast at 12:00, 2 cm from the nipple now measures 0.5 x 0.3 x 0.6 cm. This is smaller than on the prior exam. No new suspicious solid or cystic masses are identified on ultrasound. us Jean Gibbons MD MAMMO ORDERABLES Final Re sult documented in this encounter Visit Diagnoses Diagnosis Abnormal mammogram Abnormal mammogram, unspecified Abnormal mammogram Abnormal mammogram, unspecified documented in this encounter Additional Health Concerns Infection Onset Date Last Indicated Resolved Time R/O COVID-19 10/21/2020 10/21/2020 10/28/2021 9:17 PM SOLAR SALES MANAGER Assessment Noted Time PHQ-9 Depression Total Score: 1 01/01/20 18 11:00 AM SOLAR SALES MANAGER documented as of this encounter Care Teams Strategic Insights Lead Relationship Specialty Start Date End Date Jean Gibbons MD [address] [address] PCP - General Family Practice 04/09/18 documented as of this encounter
--- OUTSIDE RECORDS SUMMARY | 2025-07-11 16:54 | XMS_ITS | Encounter Summary ---
Author Organization [facility] Address [address] [place] [address] Care Team Providers Care Space Technologist Name Role Phone Jean Gibbons MD Primary Care Provider [phone] Reason for Referral * Outpatient Services (Routine) - Closed Specialty Diagnoses / Procedures Referred By Mack t Referred To Contact Radiology Diagnoses Breast tenderness in female Procedures MAMMO DIAGNOSTIC BILATERAL W OR WO CAD MAMMO DIAG BILAT 3D SHAI W OR WO CAD MAMMO DIAGNOSTIC BILATERAL W OR WO CAD Amberly Lima FNP Phone: tel: fax: [facility] [place] [address] [facility] [address] [place] [address] Phone: tel: fax: Referral ID Status Reason Start Date Expiration Date V isits Requested Visits Authorized [id number] Closed F MC TO SCHEDULE (SG) 04/04/2018 05/05/2019 1 1 Encounter Details Date Type Department Care Team (Late st Contact Info) Description 05/01/2018 Ancillary Orders [facility] Family Medicine [place] [address] [facility] [address] [place] [address] Amberly Lima FNP [address] [place] [address] Breast tenderness in female Social History Tobacco Use Types Packs/Day Years Used Date Smoking Tobacco: Former Cigarettes Q uit: 08/12/1990 Smokeless Tobacco: Never Comments:quit in the Alcohol Use Standard Drinks/Week Comments No 0 (1 standard drink = 0.6 oz pur e alcohol) Comments No Sex and Gender Information Value Date Recorded Sex Assigned at Not on file Legal Sex Female 4:08 AM TEXTURING MACHINE FIXER Gender Identity Not on file Sexual Orientation Not on file Occupation Industry Job Start Date Job End Date Not on file Not on file Not on file Not on file documented as of this encounter Plan of Treatment Not on file documented as of this encounter Results * (ABNORMAL) MAMMO DIAGNOSTIC BILATERAL W OR WO CAD (05/01/2018 12:30 PM CDT) Anatomical Region Laterality Modality Breast Bilateral Mammography 05/01/2018 12:3 0 PM CDT Impressions 05/03/2018 9:22 AM CDT [...] also recommended. Patient received a result/recommendation letter. [id number] Narrative 05/03/2018 9:22 AM CDT EXAM: MAMMO DIAGNOSTIC BILATERAL W OR WO CAD, MAMMO BREAST US BILAT [facility] INDICATION: 72-year-old female presents with tenderness and [...] at 1:00, 1 cm from the nipple. us Amberly Lima DIRECTOR OF PSYCHOLOGY MAMMO ORDERABLES Final Result documented in this encounter Visit Diagnoses Diagnosis Breast tenderness in female Mastodynia Breast tenderness in female Mastodynia documented in this encounter Additional Health Concerns Infection Onset Date Last Indicated Resolved Time R/O COVID-19 10/21/2020 10/21/2020 10/28/2021 9:17 PM TEXTURING MACHINE FIXER Assessment Noted Time PHQ-9 Depression Total Score: 1 01/01/20 18 11:00 AM TEXTURING MACHINE FIXER documented as of this encounter Care Teams Space Technologist Relationship Specialty Start Date End Date Jean Gibbons MD [address] [address] PCP - General Family Practice 04/09/18 documented as of this encounter
--- OUTSIDE RECORDS SUMMARY | 2025-07-11 16:54 | XMS_ITS | Encounter Summary ---
Author Organization [facility] Address [address] [place] [address] Care Team Providers Care Aircraft Metalsmith Name Role Phone Jean Gibbons MD Primary Care Provider [phone] Encounter Details Date Type Department Care Team (Latest Contact Info) Description 08/27/2007 Outpatient Historical [facility] Medicine [place] [address] [address] Ben Winters DO NO ADDRESS ON FILE Vaccine for Influenza (Primary Dx) Social History Tobacco Use Types Packs/Day Years Used Date Smoking Tobacco: Never Assessed Comments Unknown Sex and Gender Information Value Date Recorded Sex Assigned at Not on file Legal Sex Female 4:08 AM GRAVEL MACHINE OPERATOR Gender Identity Not on file Sexual Orientation Not on file documented as of this encounter Plan of Treatment Not on file documented as of this encounter Visit Diagnoses Diagnosis Vaccine for influenza- Primary Need for prophylactic vaccination and inoculation against influenza documented in this encounter Additional Health Concerns Infection Onset Date Last Indicated Resolved Time R/O COVID-19 10/21/2020 10/21/2020 10/28/2021 9:17 PM GRAVEL MACHINE OPERATOR documented as of this encounter Care Teams Aircraft Metalsmith Relationship Specialty Start Date End Date Jean Gibbons MD [address] [address] PCP - General Family Practice 04/09/18 documented as of this encounter
--- OUTSIDE RECORDS SUMMARY | 2025-07-11 16:54 | XMS_ITS | Encounter Summary ---
Author Organization [facility] Address [address] [place] [address] Care Team Providers Care Photographic Reproduction Technician Name Role Phone Jean Gibbons MD Primary Care Provider [phone] [phone] Encounter Details Date Type Department Care Team (Latest Contact Info) Description 02/08/2004 Outpatient Historical [facility] Medicine [place] [address] [address] Ben Winters DO NO ADDRESS ON FILE EDEMA (Primary Dx); LUMBAGO; HYPOTHYROIDISM NOS Social History Tobacco Use Types Packs/Day Years Used Date Smoking Tobacco: Never Assessed Comments Unknown Sex and Gender Information Value Date Recorded Sex Assigned at Not on file Legal Sex Female 4:08 AM SUPERINTENDENT INSTITUTION Gender Identity Not on file Sexual Orientation Not on file documented as of this encounter Plan of Treatment Not on file documented as of this encounter Visit Diagnoses Diagnosis Edema- Primary Lumbago Unspecified hypothyroidism documented in this encounter Additional Health Concerns Infection Onset Date Last Indicated Resolved Time R/O COVID-19 10/21/2020 10/21/2020 10/28/2021 9:17 PM SUPERINTENDENT INSTITUTION documented as of this encounter Care Teams Photographic Reproduction Technician Relationship Specialty Start Date End Date Jean Gibbons MD [address] [address] PCP - General Family Practice 04/09/18 documented as of this encounter
--- OUTSIDE RECORDS SUMMARY | 2025-07-11 16:54 | XMS_ITS | Encounter Summary ---
Author Organization [facility] Address [address] [place] [address] Care Team Providers Care Therapist Phys Name Role Phone Jean Gibbons MD Primary Care Provider [phone] Encounter Details Date Type Department Care Team (Latest Contact Info) Description 07/10/2003 Outpatient Historical [facility] Medicine [address] [address] Ben Winters DO NO ADDRESS ON FILE ORAL APHTHAE (Primary Dx); ACUTE PHARYNGITIS; ACUTE BRONCHITIS; ARTERITIS NOS Social History Tobacco Use Types Packs/Day Years Used Date Smoking Tobacco: Never Assessed Comments Unknown Sex and Gender Information Value Date Recorded Sex Assigned at Not on file Legal Sex Female 4:08 AM MASONRY CONTRACTOR ADMINISTRATOR Gender Identity Not on file Sexual Orientation Not on file documented as of this encounter Plan of Treatment Not on file documented as of this encounter Visit Diagnoses Diagnosis Oral aphthae- Primary Acute pharyngitis Acute bronchitis Arteritis, unspecified documented in this encounter Additional Health Concerns Infection Onset Date Last Indicated Resolved Time R/O COVID-19 10/21/2020 10/21/2020 10/28/2021 9:17 PM MASONRY CONTRACTOR ADMINISTRATOR documented as of this encounter Care Teams Therapist Phys Relationship Specialty Start Date End Date Jean Gibbons MD [address] [address] PCP - General Family Practice 04/09/18 documented as of this encounter
--- OUTSIDE RECORDS SUMMARY | 2025-07-11 16:54 | XMS_ITS | Encounter Summary ---
Author Organization [facility] Address [address] [place] [address] Care Team Providers Care Shopping Investigator Name Role Phone Jean Gibbons MD Primary Care Provider [phone] Encounter Details Date Type Department Care Team (Late st Contact Info) Description 09/20/2018 Ancillary Orders [facility] Pre-Registration [place] CALL TO MAKE APPOINTMENT ONLY [address] [place] [address] Jean Gibbons MD [address] [facility] [address] [place] [address] Abnormal mammogram Social History Tobacco Use Types Packs/Day Years Used Date Smoking Tobacco: Former Cigarettes Q uit: 08/12/1990 Smokeless Tobacco: Never Comments:quit in the Alcohol Use Standard Drinks/Week Comments No 0 (1 standard drink = 0.6 oz pur e alcohol) Comments No Sex and Gender Information Value Date Recorded Sex Assigned at Not on file Legal Sex Female 4:08 AM CERTIFICATION TECHNICIAN Gender Identity Not on file Sexual Orientation Not on file Occupation Industry Job Start Date Job End Date Not on file Not on file Not on file Not on file documented as of this encounter Plan of Treatment Not on file documented as of this encounter Visit Diagnoses Diagnosis Abnormal mammogram Abnormal mammogram, unspecified documented in this encounter Additional Health Concerns Infection Onset Date Last Indicated Resolved Time R/O COVID-19 10/21/2020 10/21/2020 10/28/2021 9:17 PM CERTIFICATION TECHNICIAN Assessment Noted Time PHQ-9 Depression Total Score: 1 01/01/20 18 11:00 AM CERTIFICATION TECHNICIAN documented as of this encounter Care Teams Shopping Investigator Relationship Specialty Start Date End Date Jean Gibbons MD [address] [address] PCP - General Family Practice 04/09/18 documented as of this encounter
--- OUTSIDE RECORDS SUMMARY | 2025-07-11 16:54 | XMS_ITS | Encounter Summary ---
Author Organization [facility] Address [address] [place] [address] Care Team Providers Care Department Specialist Name Role Phone Jean Gibbons MD Primary Care Provider [phone] Encounter Details Date Type Department Care Team (Late st Contact Info) Description 10/04/2002 Inpatient Historical [facility] Theo Rust MD NO ADDRESS ON FILE CHEST PAIN NEC (Primary Dx) Social History Tobacco Use Types Packs/Day Years Used Date Smoking Tobacco: Never Assessed Comments Unknown Sex and Gender Information Value Date Recorded Sex Assigned at Not on file Legal Sex Female 4:08 AM HORTICULTURAL FARMWORKER Gender Identity Not on file Sexual Orientation Not on file documented as of this encounter Plan of Treatment Not on file documented as of this encounter Visit Diagnoses Diagnosis Other chest pain- Primary documented in this encounter Additional Health Concerns Infection Onset Date Last Indicated Resolved Time R/O COVID-19 10/21/2020 10/21/2020 10/28/2021 9:17 PM HORTICULTURAL FARMWORKER documented as of this encounter Care Teams Department Specialist Relationship Specialty Start Date End Date Jean Gibbons MD [address] [place] [address] PCP - General Family Practice 04/09/18 documented as of this encounter
--- OUTSIDE RECORDS SUMMARY | 2025-07-11 16:54 | XMS_ITS | Encounter Summary ---
Author Organization [facility] Address [address] [place] [address] Care Team Providers Care Laboratory Scientist Name Role Phone Jean Gibbons MD Primary Care Provider [phone] [phone] Encounter Details Date Type Department Care Team (Latest Contact Info) Description 04/27/2004 Outpatient Historical [facility] [place] Medicine [address] [address] Nicolas Parks PA NO ADDRESS ON FILE ALLERGY, UNSPECIFIED (Primary Dx); DEPRESSIVE DISORDER NEC; JOINT PAIN-UNSPEC Social History Tobacco Use Types Packs/Day Years Used Date Smoking Tobacco: Never Assessed Comments Unknown Sex and Gender Information Value Date Recorded Sex Assigned at Not on file Legal Sex Female 4:08 AM DRAFTER LANDSCAPE Gender Identity Not on file Sexual Orientation Not on file documented as of this encounter Plan of Treatment Not on file documented as of this encounter Visit Diagnoses Diagnosis Allergy, unspecified not elsewhere classified- Primary Depressive disorder, not elsewhere classified Pain in joint, site unspecified documented in this encounter Additional Health Concerns Infection Onset Date Last Indicated Resolved Time R/O COVID-19 10/21/2020 10/21/2020 10/28/2021 9:17 PM DRAFTER LANDSCAPE documented as of this encounter Care Teams Laboratory Scientist Relationship Specialty Start Date End Date Jean Gibbons MD [address] [address] PCP - General Family Practice 04/09/18 documented as of this encounter
--- OUTSIDE RECORDS SUMMARY | 2025-07-11 16:54 | XMS_ITS | Encounter Summary ---
Author Organization [facility] Address [address] [place] [address] Care Team Providers Care Medical Office Asst Name Role Phone Jean Gibbons MD Primary Care Provider [phone] Reason for Visit * Reason Onset Date Comments Medication Review 07/10/2025 sinus/allergies 07/10/2025 Encounter Details Date Type Department Care Team (Late st Contact Info) Description 07/10/2025 Telephone [facility] Family Medicine [place] [address] [address] Jean Gibbons MD [address] [address] Medication Review; sinus/allergies Social History Tobacco Use Types Packs/Day Years [...] on file Legal Sex Female 4:19 AM SENIOR MAINFRAME PROGRAMMER ANALYST Gender Identity Not on file Sexual Orientation Not on file documented as of this encounter Miscellaneous Notes * Telephone Encounter - Glenny Nguyen - 07/10/2025 3:30 PM CDT Savannah-patients mother called asking if we could call an antibiotic in for her mother before the holiday weekend . Savannah states patient is having sinus/allergy issues x week. I advised Savannah that her mother could come into our walk in clinic and be seen. Savannah stated she did not think she could get her mother in here before we closed. Please call and advise patients daughter Savannah at [phone]. Glenny Nguyen, 07/10/2025 3:34 PM documented in this encounter Plan of Treatment Upcoming Encounters Date Type Department Care Team (Late st Contact Info) Description 07/21/2025 3:00 PM CDT Video Visit [facility] Medicine [place] [address] [address] Jean Gibbons MD [address] [facility] [address] [place] [address] documented as of this encounter Goals Goal Patient Goal Type Associated Problems Recent Progress Patient-Stated? Author Heart Failure Goal Care Plan Heart Failure Problem No Wendy, [place] Heart Failure Goal Care Plan Heart Failure Problem No Wendy, [place] Heart Failure Goal Care Plan Heart Failure Problem No [place], Judy, SENIOR STRATEGY ANALYST Heart Failure Goal Care Plan Heart Failure Problem No [place], Judy, SENIOR STRATEGY ANALYST Heart Failure Goal Care Plan Heart Failure Problem No [place], Judy, SENIOR STRATEGY ANALYST Heart Failure Goal Care Plan Heart Failure Problem No [place], Judy, SENIOR STRATEGY ANALYST Heart Failure Goal Care Plan Heart Failure Problem No [place], Judy, SENIOR STRATEGY ANALYST Heart Failure Goal Care Plan Heart Failure Problem No [place], Judy, SENIOR STRATEGY ANALYST Heart Failure Goal Care Plan Heart Failure Problem No [place], Judy, SENIOR STRATEGY ANALYST Heart Failure Goal Care Plan Heart Failure Problem No [place], Judy, SENIOR STRATEGY ANALYST Heart Failure Goal Care Plan Heart Failure Problem No [place], Judy, SENIOR STRATEGY ANALYST Heart Failure Goal Care Plan Heart Failure Problem No [place], Judy, SENIOR STRATEGY ANALYST Heart Failure Goal Care Plan Heart Failure Problem No [place], Judy, SENIOR STRATEGY ANALYST Heart Failure Goal Care Plan Heart Failure Problem No [place], Judy, SENIOR STRATEGY ANALYST Heart Failure Goal Care Plan Heart Failure Problem No [place], Judy, SENIOR STRATEGY ANALYST Heart Failure Goal Care Plan Heart Failure Problem No Mele, Peyton M, SENIOR STRATEGY ANALYST Heart Failure Goal Care Plan Heart Failure Problem No Cervantes, Azalia K, SENIOR STRATEGY ANALYST Heart Failure Goal Care Plan Heart Failure Problem No Cervantes, Azalia K, SENIOR STRATEGY ANALYST Heart Failure Goal Care Plan Heart Failure Problem No Mele, Peyton M, SENIOR STRATEGY ANALYST Heart Failure Goal Care Plan Heart Failure Problem No Mele, Peyton M, SENIOR STRATEGY ANALYST Heart Failure Goal Care Plan Heart Failure Problem No Mele, Peyton M, SENIOR STRATEGY ANALYST Heart Failure Goal Care Plan Heart Failure Problem No Mele, Peyton M, SENIOR STRATEGY ANALYST Heart Failure Goal Care Plan Heart Failure Problem No Mele, Peyton M, SENIOR STRATEGY ANALYST Heart Failure Goal Care Plan Heart Failure Problem No Mele, Peyton M, SENIOR STRATEGY ANALYST Heart Failure Goal Care Plan Heart Failure Problem No Mele, Peyton M, SENIOR STRATEGY ANALYST Heart Failure Goal Care Plan Heart Failure Problem No Mele, Peyton M, SENIOR STRATEGY ANALYST Heart Failure Goal Care Plan Heart Failure Problem No Mele, Peyton M, SENIOR STRATEGY ANALYST Heart Failure Goal Care Plan Heart Failure Problem No Mele, Peyton M, SENIOR STRATEGY ANALYST Heart Failure Goal Care Plan Heart Failure Problem No Mele, Peyton M, SENIOR STRATEGY ANALYST Heart Failure Goal Care Plan Heart Failure Problem No Mele, Peyton M, SENIOR STRATEGY ANALYST Heart Failure Goal Care Plan Heart Failure Problem No Mele, Peyton M, SENIOR STRATEGY ANALYST Heart Failure Goal Care Plan Heart Failure Problem No Mele, Peyton M, SENIOR STRATEGY ANALYST Heart Failure Goal Care Plan Heart Failure Problem No Mele, Peyton M, SENIOR STRATEGY ANALYST Heart Failure Goal Care Plan Heart Failure Problem No Mele, Peyton M, SENIOR STRATEGY ANALYST Heart Failure Goal Care Plan Heart [...] Heart Failure Problem No Mele, Peyton M, SENIOR STRATEGY ANALYST Heart Failure Goal Care Plan Heart Failure Problem No Mele, Peyton M, SENIOR STRATEGY ANALYST Heart Failure Goal Care Plan Heart [...] documented as of this encounter Care Teams Medical Office Asst Relationship Specialty Start Date End Date Jean Gibbons MD [address] [address] PCP - General Family Practice 04/09/18 documented as of this encounter
--- OUTSIDE RECORDS SUMMARY | 2025-07-11 16:54 | XMS_ITS | Encounter Summary ---
Author Organization [facility] Address [address] [place] [address] Care Team Providers Care Fuel Attendant Name Role Phone Jean Gibbons MD Primary Care Provider +1 [phone] Encounter Details Date Type Department Care Team (Late st Contact Info) Description 04/09/2018 Ancillary Orders [facility] Medicine [place] 104 [facility] 60 [place] [address] Amberly Lima, JACOB [address] [place] [phone] Breast tenderness in female Social History Tobacco Use Types Packs/Day Years Used Date Smoking Tobacco: Former Cigarettes Q uit: 08/12/1990 Smokeless Tobacco: Never Comments:quit in the Alcohol Use Standard Drinks/Week Comments No 0 (1 standard drink = 0.6 oz pur e alcohol) Comments No Sex and Gender Information Value Date Recorded Sex Assigned at Not on file Legal Sex Female 4:08 AM GLASS FURNACE TENDER Gender Identity Not on file Sexual Orientation Not on file Occupation Industry Job Start Date Job End Date Not on file Not on file Not on file Not on file documented as of this encounter Plan of Treatment Not on file documented as of this encounter Visit Diagnoses Diagnosis Breast tenderness in female Mastodynia documented in this encounter Additional Health Concerns Infection Onset Date Last Indicated Resolved Time R/O COVID-19 10/21/2020 10/21/2020 10/28/2021 9:17 PM GLASS FURNACE TENDER Assessment Noted Time PHQ-9 Depression Total Score: 1 01/01/20 18 11:00 AM GLASS FURNACE TENDER documented as of this encounter Care Teams Fuel Attendant Relationship Specialty Start Date End Date Jean Gibbons MD [address] [address] PCP - General Family Practice 04/09/18 documented as of this encounter
--- OUTSIDE RECORDS SUMMARY | 2025-07-11 16:54 | XMS_ITS | Encounter Summary ---
Author Organization [facility] Address [address] [place] [address] Care Team Providers Care Data Developer Name Role Phone Jean Gibbons MD Primary Care Provider +1 [phone] Encounter Details Date Type Department Care Team (Latest Contact Info) Description 10/19/2000 Outpatient Historical [facility] [address] [place] [address] David Bailey DPM NO ADDRESS ON FILE Hallux valgus (Primary Dx); Other acquired deformity of ankle and foot(736.79) Social History Tobacco Use Types Packs/Day Years Used Date Smoking Tobacco: Never Assessed Comments Unknown Sex and Gender Information Value Date Recorded Sex Assigned at Not on file Legal Sex Female 4:08 AM DEPARTMENT STORE SALESPERSON Gender Identity Not on file Sexual Orientation Not on file documented as of this encounter Plan of Treatment Not on file documented as of this encounter Visit Diagnoses Diagnosis Hallux valgus- Primary Hallux valgus (acquired) Other acquired deformity of ankle and foot(736.79) Other acquired deformity of ankle and foot documented in this encounter Additional Health Concerns Infection Onset Date Last Indicated Resolved Time R/O COVID-19 10/21/2020 10/21/2020 10/28/2021 9:17 PM DEPARTMENT STORE SALESPERSON documented as of this encounter Care Teams Data Developer Relationship Specialty Start Date End Date Jean Gibbons MD [address] [place] [phone] PCP - General Family Practice 04/09/18 documented as of this encounter
--- OUTSIDE RECORDS SUMMARY | 2025-07-11 16:54 | XMS_ITS | Encounter Summary ---
Author Organization [facility] Address [address] [place] [address] Care Team Providers Care Manager Call Name Role Phone Jean Gibbons MD Primary Care Provider +1 [phone] Encounter Details Date Type Department Care Team (Late st Contact Info) Description 07/10/2025 Orders Only [facility] Family Medicine [place] [address] [address] Jean Gibbons MD [address] [address] Social History Tobacco Use Types Packs/Day Years [...] on file Legal Sex Female 4:19 AM RAIL TRANSPORTATION TABELER Gender Identity Not on file Sexual Orientation Not on file documented as of this encounter Plan of Treatment Upcoming Encounters Date Type Department Care Team (Late st Contact Info) Description 07/21/2025 3:00 PM CDT Video Visit [address] [phone] Jean Gibbons MD [address] [phone] documented as of this encounter Goals Goal Patient Goal Type Associated Problems Recent Progress Patient-Stated? Author Heart Failure Goal Care Plan Heart Failure Problem No Glenny Nguyen Heart Failure Goal Care Plan Heart Failure Problem No Glenny Nguyen Heart Failure Goal Care Plan Heart Failure Problem No Grandstaff, Judy, BUNCHER MACHINE Heart Failure Goal Care Plan Heart Failure Problem No Grandstaff, Judy, BUNCHER MACHINE Heart Failure Goal Care Plan Heart Failure Problem No Grandstaff, Judy, BUNCHER MACHINE Heart Failure Goal Care Plan Heart Failure Problem No Grandstaff, Judy, BUNCHER MACHINE Heart Failure Goal Care Plan Heart Failure Problem No Grandstaff, Judy, BUNCHER MACHINE Heart Failure Goal Care Plan Heart Failure Problem No Grandstaff, Judy, BUNCHER MACHINE Heart Failure Goal Care Plan Heart Failure Problem No Grandstaff, Judy, BUNCHER MACHINE Heart Failure Goal Care Plan Heart Failure Problem No Grandstaff, Judy, BUNCHER MACHINE Heart Failure Goal Care Plan Heart Failure Problem No Grandstaff, Judy, BUNCHER MACHINE Heart Failure Goal Care Plan Heart Failure Problem No Grandstaff, Judy, BUNCHER MACHINE Heart Failure Goal Care Plan Heart Failure Problem No Grandstaff, Judy, BUNCHER MACHINE Heart Failure Goal Care Plan Heart Failure Problem No Grandstaff, Judy, BUNCHER MACHINE Heart Failure Goal Care Plan Heart Failure Problem No Grandstaff, Judy, BUNCHER MACHINE Heart Failure Goal Care Plan Heart Failure Problem No Mele, Peyton M, BUNCHER MACHINE Heart Failure Goal Care Plan Heart Failure Problem No Cervantes, Azalia K, BUNCHER MACHINE Heart Failure Goal Care Plan Heart Failure Problem No Cervantes, Azalia K, BUNCHER MACHINE Heart Failure Goal Care Plan Heart Failure Problem No Mele, Peyton M, BUNCHER MACHINE Heart Failure Goal Care Plan Heart Failure Problem No Mele, Peyton M, BUNCHER MACHINE Heart Failure Goal Care Plan Heart Failure Problem No Mele, Peyton M, BUNCHER MACHINE Heart Failure Goal Care Plan Heart Failure Problem No Mele, Peyton M, BUNCHER MACHINE Heart Failure Goal Care Plan Heart Failure Problem No Mele, Peyton M, BUNCHER MACHINE Heart Failure Goal Care Plan Heart Failure Problem No Mele, Peyton M, BUNCHER MACHINE Heart Failure Goal Care Plan Heart Failure Problem No Mele, Peyton M, BUNCHER MACHINE Heart Failure Goal Care Plan Heart Failure Problem No Mele, Peyton M, BUNCHER MACHINE Heart Failure Goal Care Plan Heart Failure Problem No Mele, Peyton M, BUNCHER MACHINE Heart Failure Goal Care Plan Heart Failure Problem No Mele, Peyton M, BUNCHER MACHINE Heart Failure Goal Care Plan Heart Failure Problem No Mele, Peyton M, BUNCHER MACHINE Heart Failure Goal Care Plan Heart Failure Problem No Mele, Peyton M, BUNCHER MACHINE Heart Failure Goal Care Plan Heart Failure Problem No Mele, Peyton M, BUNCHER MACHINE Heart Failure Goal Care Plan Heart Failure Problem No Mele, Peyton M, BUNCHER MACHINE Heart Failure Goal Care Plan Heart Failure Problem No Mele, Peyton M, BUNCHER MACHINE Heart Failure Goal Care Plan Heart Failure Problem No Mele, Peyton M, BUNCHER MACHINE Heart Failure Goal Care Plan Heart Failure [...] Heart Failure Problem No Mele, Peyton M, BUNCHER MACHINE Heart Failure Goal Care Plan Heart Failure Problem No Mele, Peyton M, BUNCHER MACHINE Heart Failure Goal Care Plan Heart Failure [...] as of this encounter Care Teams Manager Call Relationship Specialty Start Date End Date Jean Gibbons MD [address] [facility] 60 [place] [phone] PCP - General Family Practice 04/09/18 documented as of this encounter
--- OUTSIDE RECORDS SUMMARY | 2025-07-11 16:54 | XMS_ITS | Encounter Summary ---
Author Organization [facility] Address [address] [place] [address] Care Team Providers Care Maintenance Welder Name Role Phone Jean Gibbons MD Primary Care Provider [phone] [phone] Reason for Referral * Radiology Services (Routine) - Closed Specialty Diagnoses / Procedures Referred By Contac t Referred To Contact Diagnoses Abnormal mammogram Procedures MAMMO BREAST US BILAT LTD Jean Gibbons MD [address] [address] Phone: tel: fax: Referral ID Status Reason Start Date Expiration Date Visits Re quested Visits Authorized [id number] Closed 10/14/2018 11/14/2019 1 1 OVEMENT LEADER Encounter Details Date Type Department Care Team (Late st Contact Info) Description 10/14/2018 Ancillary Orders [facility] [address] [address] Jean Gibbons MD [address] [address] Abnormal mammogram Social History Tobacco Use Types Packs/Day Years Used Date Smoking Tobacco: Former Cigarettes Q uit: 08/12/1990 Smokeless Tobacco: Never Comments:quit in the Alcohol Use Standard Drinks/Week Comments No 0 (1 standard drink = 0.6 oz pur e alcohol) Comments No Sex and Gender Information Value Date Recorded Sex Assigned at Not on file Legal Sex Female 4:08 AM IMPROVEMENT LEADER Gender Identity Not on file Sexual Orientation Not on file Occupation Industry Job Start Date Job End Date Not on file Not on file Not on file Not on file documented as of this encounter Plan of Treatment Not on file documented as of this encounter Results * (ABNORMAL) MAMMO BREAST US [place] (10/14/2018 4:14 PM IMPROVEMENT LEADER) Anatomical Region Laterality Modality Bilateral Ultrasound 10/14/2018 4:14 PM IMPROVEMENT LEADER Impressions 10/15/2018 6:48 AM IMPROVEMENT LEADER : Stable to smaller sonographic appearance of [...] and bilateral breast ultrasound in six months. [id number] Narrative 10/15/2018 6:48 AM IMPROVEMENT LEADER EXAM: MAMMO DIAG BILAT 3D SHAI W OR WO CAD, MAMMO BREAST US [place] INDICATION: 73-year-old female presents for six month [...] or cystic masses are identified on ultrasound. Jean Gibbons MD MAMMO ORDERABLES Final Re sult documented in this encounter Visit Diagnoses Diagnosis Abnormal mammogram Abnormal mammogram, unspecified Abnormal mammogram Abnormal mammogram, unspecified documented in this encounter Additional Health Concerns Infection Onset Date Last Indicated Resolved Time R/O COVID-19 10/21/2020 10/21/2020 10/28/2021 9:17 PM IMPROVEMENT LEADER Assessment Noted Time PHQ-9 Depression Total Score: 1 01/01/20 18 11:00 AM IMPROVEMENT LEADER documented as of this encounter Care Teams Maintenance Welder Relationship Specialty Start Date End Date Jean Gibbons MD [address] [facility] [address] [place] [address] PCP - General Family Practice 04/09/18 documented as of this encounter
--- OUTSIDE RECORDS SUMMARY | 2025-07-11 16:54 | XMS_ITS | Encounter Summary ---
Author Organization [facility] Address [address] [place] [address] Care Team Providers Care Steam Brush Operator Name Role Phone Jean Gibbons MD Primary Care Provider [phone] Encounter Details Date Type Department Care Team (Latest Contact Info) Description 03/12/2003 Outpatient Historical [facility] Medicine [place] [address] [address] Kamini Gallegos MD NO ADDRESS ON FILE [place], BLOOD IN STOOL (Primary Dx) Social History Tobacco Use Types Packs/Day Years Used Date Smoking Tobacco: Never Assessed Comments Unknown Sex and Gender Information Value Date Recorded Sex Assigned at Not on file Legal Sex Female 4:08 AM STAFFING ANALYST Gender Identity Not on file Sexual Orientation Not on file documented as of this encounter Plan of Treatment Not on file documented as of this encounter Visit Diagnoses Diagnosis Blood in stool- Primary documented in this encounter Additional Health Concerns Infection Onset Date Last Indicated Resolved Time R/O COVID-19 10/21/2020 10/21/2020 10/28/2021 9:17 PM STAFFING ANALYST documented as of this encounter Care Teams Steam Brush Operator Relationship Specialty Start Date End Date Jean Gibbons MD [address] [phone] PCP - General Family Practice 04/09/18 documented as of this encounter
--- OUTSIDE RECORDS SUMMARY | 2025-07-11 16:54 | XMS_ITS | Encounter Summary ---
Author Organization [facility] Address [address] [place] [address] Care Team Providers Care Lab Scientist Name Role Phone Jean Gibbons MD Primary Care Provider [phone] [phone] Encounter Details Date Type Department Care Team (Latest Contact Info) Description 10/19/2003 Outpatient Historical [facility] Medicine [place] [address] [address] Neo Aceves MD [address] [address] JOINT PAIN-UNSPEC (Primary Dx); NONINFEC GASTROENTERIT NEC Social History Tobacco Use Types Packs/Day Years Used Date Smoking Tobacco: Never Assessed Comments Unknown Sex and Gender Information Value Date Recorded Sex Assigned at Not on file Legal Sex Female 4:08 AM PROTEIN PURIFICATION SCIENTIST Gender Identity Not on file Sexual Orientation Not on file documented as of this encounter Plan of Treatment Not on file documented as of this encounter Visit Diagnoses Diagnosis Pain in joint, site unspecified- Primary Other and unspecified noninfectious gastroenteritis and colitis(558.9) Other and unspecified noninfectious gastroenteritis and colitis documented in this encounter Additional Health Concerns Infection Onset Date Last Indicated Resolved Time R/O COVID-19 10/21/2020 10/21/2020 10/28/2021 9:17 PM PROTEIN PURIFICATION SCIENTIST documented as of this encounter Care Teams Lab Scientist Relationship Specialty Start Date End Date Jean Gibbons MD [address] [address] PCP - General Family Practice 04/09/18 documented as of this encounter
--- OUTSIDE RECORDS SUMMARY | 2025-07-11 16:54 | XMS_ITS | Encounter Summary ---
Author Organization [facility] Address [address] [place] [address] Care Team Providers Care Media Coordinator Name Role Phone Jean Gibbons MD Primary Care Provider [phone] [phone] Encounter Details Date Type Department Care Team (Latest Contact Info) Description 06/10/2003 Outpatient Historical [facility] Medicine [place] [address] [address] Kamini Gallegos MD NO ADDRESS ON FILE ALLERGIC RHINITIS NOS (Primary Dx) Social History Tobacco Use Types Packs/Day Years Used Date Smoking Tobacco: Never Assessed Comments Unknown Sex and Gender Information Value Date Recorded Sex Assigned at Not on file Legal Sex Female 4:08 AM ENGINEERING TECHNICIAN PARKING Gender Identity Not on file Sexual Orientation Not on file documented as of this encounter Plan of Treatment Not on file documented as of this encounter Visit Diagnoses Diagnosis Allergic rhinitis, cause unspecified- Primary documented in this encounter Additional Health Concerns Infection Onset Date Last Indicated Resolved Time R/O COVID-19 10/21/2020 10/21/2020 10/28/2021 9:17 PM ENGINEERING TECHNICIAN PARKING documented as of this encounter Care Teams Media Coordinator Relationship Specialty Start Date End Date Jean Gibbons MD [address] [phone] PCP - General Family Practice 04/09/18 documented as of this encounter
--- OUTSIDE RECORDS SUMMARY | 2025-07-11 16:54 | XMS_ITS | Encounter Summary ---
Author Organization [facility] Address [address] [place] [address] Care Team Providers Care Correctional Substance Abuse Counselor Name Role Phone Jean Gibbons MD Primary Care Provider +1 [phone] Encounter Details Date Type Department Care Team (Late st Contact Info) Description 03/13/2003 Outpatient Historical [facility] FY06 Deanna Parada NP NO ADDRESS ON FILE Social History Tobacco Use Types Packs/Day Years Used Date Smoking Tobacco: Never Assessed Comments Unknown Sex and Gender Information Value Date Recorded Sex Assigned at Not on file Legal Sex Female 4:08 AM MILL HELPER Gender Identity Not on file Sexual Orientation Not on file documented as of this encounter Plan of Treatment Not on file documented as of this encounter Visit Diagnoses Not on filedocumented in this encounter Additional Health Concerns Infection Onset Date Last Indicated Resolved Time R/O COVID-19 10/21/2020 10/21/2020 10/28/2021 9:17 PM MILL HELPER documented as of this encounter Care Teams Correctional Substance Abuse Counselor Relationship Specialty Start Date End Date Jean Gibbons MD [address] [facility] [place] [phone] PCP - General Family Practice 04/09/18 documented as of this encounter
--- OUTSIDE RECORDS SUMMARY | 2025-07-11 16:54 | XMS_ITS | Encounter Summary ---
Author Organization [facility] Address [address] [place] [address] Care Team Providers Care Training And Development Assistant Name Role Phone Jean Gibbons MD Primary Care Provider +1 -[phone] Encounter Details Date Type Department Care Team (Latest Contact Info) Description 05/16/2007 Outpatient Historical [facility] Medicine [place] [address] [address] Deanna Parada NP NO ADDRESS ON FILE Acute Sinusitis, Unspecified (Primary Dx); Dysfunct Eustachian Tube; Other and Unspecified Hyperlipidemia Social History Tobacco Use Types Packs/Day Years Used Date Smoking Tobacco: Never Assessed Comments Unknown Sex and Gender Information Value Date Recorded Sex Assigned at Not on file Legal Sex Female 4:08 AM COOLING PAN TENDER Gender Identity Not on file Sexual Orientation Not on file documented as of this encounter Plan of Treatment Not on file documented as of this encounter Visit Diagnoses Diagnosis Acute sinusitis, unspecified- Primary Dysfunct eustachian tube Dysfunction of Eustachian tube Other and unspecified hyperlipidemia documented in this encounter Additional Health Concerns Infection Onset Date Last Indicated Resolved Time R/O COVID-19 10/21/2020 10/21/2020 10/28/2021 9:17 PM COOLING PAN TENDER documented as of this encounter Care Teams Training And Development Assistant Relationship Specialty Start Date End Date Jean Gibbons MD [address] [address] PCP - General Family Practice 04/09/18 documented as of this encounter
--- OUTSIDE RECORDS SUMMARY | 2025-07-11 16:55 | XMS_ITS | Encounter Summary ---
Author Organization [facility] Address [address] [place] [address] Care Team Providers Care Corrections Cadet Name Role Phone Jean Gibbons MD Primary Care Provider [phone] [phone] Encounter Details Date Type Department Care Team (Latest Contact Info) Description 03/02/2000 Outpatient Historical [facility] Endocrinology-[facility] Gav[facility] Ector [address] [place] [address] Mine Tucker MD [address] [place], [place] [id number] Thyrotoxicosis without mention of goiter or other cause, without mention of thyrotoxic crisis or storm (Primary Dx) Social History Tobacco Use Types Packs/Day Years Used Date Smoking Tobacco: Never Assessed Comments Unknown Sex and Gender Information Value Date Recorded Sex Assigned at Not on file Legal Sex Female 4:08 AM MASTER PRINTER Gender Identity Not on file Sexual Orientation [...] R/O COVID-19 10/21/2020 10/21/2020 10/28/2021 9:17 PM MASTER PRINTER documented as of this encounter Care Teams Corrections Cadet Relationship Specialty Start Date End Date Jean Gibbons MD [address] [place] [phone] PCP - General Family Practice 04/09/18 documented as of this encounter
--- OUTSIDE RECORDS SUMMARY | 2025-07-11 16:55 | XMS_ITS | Encounter Summary ---
Author Organization [facility] Address [address] [place] [address] Care Team Providers Care Fire Fighting Equipment Specialist Name Role Phone Jean Gibbons MD Primary Care Provider [phone] [phone] Encounter Details Date Type Department Care Team (Late st Contact Info) Description 03/22/2005 Outpatient Historical [facility] 06 Ben Winters DO NO ADDRESS ON FILE Social History Tobacco Use Types Packs/Day Years Used Date Smoking Tobacco: Never Assessed Comments Unknown Sex and Gender Information Value Date Recorded Sex Assigned at Not on file Legal Sex Female 4:08 AM DIRECTOR PRODUCT MANAGEMENT Gender Identity Not on file Sexual Orientation Not on file documented as of this encounter Plan of Treatment Not on file documented as of this encounter Procedures Procedure Name Priority Date/Time Associated Diagnosis Comments TSH Routine 03/22/2005 7:16 AM CDT documented in this encounter Results * TSH (03/22/2005 7:16 AM CDT) TSH 4.24 0.49 - 4.67 uIU/ml INTERFACE SYSTEM 03/22/2005 7:16 AM CDT us Ben Winters DO CHEMISTRY ORDERABLES Final Resu lt INTERFACE SYSTEM Refer to clinic/hospital department documented in this encounter Visit Diagnoses Not on filedocumented in this encounter Additional Health Concerns Infection Onset Date Last Indicated Resolved Time R/O COVID-19 10/21/2020 10/21/2020 10/28/2021 9:17 PM DIRECTOR PRODUCT MANAGEMENT documented as of this encounter Care Teams Fire Fighting Equipment Specialist Relationship Specialty Start Date End Date Jean Gibbons MD [address] [phone] PCP - General Family Practice 04/09/18 documented as of this encounter
--- OUTSIDE RECORDS SUMMARY | 2025-07-11 16:55 | XMS_ITS | Clinical Summary ---
Author Organization [facility] Address [address] [place] [address] Care Team Providers Care Wood Model Builder Name Role Phone Jean Gibbons MD Primary Care Provider [phone] Allergies Active Allergy Reactions Criticality Noted Date Comments Atorvastatin Muscle Pain Low 09/05/2001 Citalopram Unknown Clarithromycin Unknown Can take Zithromax Clindamycin Hcl Unknown Doxepin Unknown Hydrocodone-Acetaminophen Unknown Ibuprofen Unknown Levofloxacin Unknown Lisinopril Unknown Naproxen Sodium Swelling,Unknown Low Oxybutynin Abdominal Pain Low 09/23/2018 Penicillins Unknown Gets severe yeast infection Pseudoephedrine Hcl Unknown Red Dye Swelling Low 04/21/2010 Sulfa (Sulfonamide Antibiotics) Hives High Venlafaxine Other (See Comments) 03/24/2014 Effexor causes night sweats and nausea Medications MILK THISTLE ORAL Take by mouth. 09/24/20 19 Active OTHER Vit d3 . 11/06/20 18 Active furosemide (LASIX) 20 mg tablet Take 1 Tablet (20 mg) by mouth 2 times daily. 02/15/20 21 Active Cranberry 400 mg Capsule Take by mouth daily. Active Red Yeast Rice Extract 600 mg Capsule Take 600 mg by mouth daily. Active docusate sodium (Stool Softener) 100 mg capsule Take by mouth. Active CYANOCOBALAMIN, VITAMIN B-12, ORAL Take by mouth. Active amiodarone (CORDARONE) 200 mg tablet Take 200 mg by mouth daily. 11/08/20 21 Active mupirocin (BACTROBAN) 2 % OintmentIndicatio ns:Cellulitis of left lower extremity APPLY TOPICALLY TO THE AFFECTED AREA TWICE DAILY 30 Gram 1 07/19/20 22 Active dicyclomine (BENTYL) 10 mg capsule Take 1 Capsule (10 mg) by mouth 3 times daily as needed for Other (See Comment) (diarrhea). 04/22/20 24 Active buPROPion HCL (WELLBUTRIN SR) 150 mg Sustained Release 12 hour tablet Take 1 Tablet (150 mg) by mouth 2 times daily. 180 Tablet 3 11/06/20 24 Active losartan (COZAAR) 100 mg tabletIndications :Primary hypertension Take 1 Tablet (100 mg) by mouth daily. 100 Tablet 3 11/06/20 24 Active propylthiouraciL (PTU) 50 mg tabletIndications :Hyperthyroidism Take 1 Tablet (50 mg) by mouth 3 times daily. 270 Tablet 3 11/06/20 24 Active tiZANidine (ZANAFLEX) 2 mg TabletIndications :Chronic midline low back pain with left-sided sciatica,Spinal stenosis of lumbar region without neurogenic claudication,Prim dain osteoarthritis of both shoulders,Rotator cuff syndrome of right shoulder,Osteoart hritis of spine with radiculopathy, cervical region TAKE 1 TABLET(2 MG) BY MOUTH TWICE DAILY NEEDED FOR SPASM 60 Tablet 5 12/04/19 25 Active Fish Oil-[place]-3 Fatty Acids 360-1,200 mg Capsule Take 1 Capsule by mouth daily. 90 Capsule 03/03/20 25 Active fluticasone propionate (FLONASE) 50 mcg/spray [place], Suspension nasal inhaler Administer 2 Sprays in each nostril daily. 48 Gram 3 03/05/20 25 Active metoprolol tartrate (LOPRESSOR) 50 mg tablet Take 1 Tablet (50 mg) by mouth 2 times daily. 180 Tablet 3 03/05/20 25 Active ondansetron (ZOFRAN ODT) 4 mg Tablet, Rapid Dissolve Take 1 Tablet (4 mg) by mouth every 8 hours as needed for Nausea/Emesis . Dissolve tablet on top of tongue, then swallow with saliva. 10 Tablet 1 05/21/20 25 Active traMADol (ULTRAM) 50 mg tabletIndications :Chronic midline low back pain with left-sided sciatica,Spinal stenosis of lumbar region without neurogenic claudication,Prim dain osteoarthritis of both shoulders,Rotator cuff syndrome of right shoulder,Osteoart hritis of spine with radiculopathy, cervical region Take 2 Tablets (100 mg) by mouth every 8 hours as needed for Pain. 180 Tablet 2 06/04/20 25 Active apixaban (Eliquis) 2.5 mg tabletIndications :Paroxysmal atrial fibrillation (CMS/HCC) Take 1 Tablet (2.5 mg) by mouth 2 times daily. Dose decrease 60 Tablet 5 06/15/20 25 Active hydrOXYzine HCL (ATARAX) 25 mg tabletIndications :Anxiety, generalized,Moder ate episode of recurrent major depressive disorder (CMS/HCC) TAKE 1 TABLET BY MOUTH THREE TIMES DAILY NEEDED FOR ITCHING 90 Tablet 07/02/20 25 Active doxycycline hyclate (VIBRAMYCIN) 100 mg tablet Take 1 Tablet (100 mg) by mouth 2 times daily for 10 days. 20 Tablet 07/10/20 25 2024 Active apixaban (Eliquis) 5 mg tablet TAKE 1 TABLET(5 MG) BY MOUTH TWICE DAILY 90 Tablet 0 11/22/19 21 2024 Discontinued hydrOXYzine HCL (ATARAX) 25 mg tabletIndications :Anxiety, generalized,Moder ate episode of recurrent major depressive disorder (CMS/HCC) Take 1 Tablet (25 mg) by mouth 3 times daily as needed for Itching. 90 Tablet 3 11/06/20 24 2024 Discontinued hydrOXYzine HCL (ATARAX) 25 mg tabletIndications :Anxiety, generalized,Moder ate episode of recurrent major depressive disorder (CMS/HCC) TAKE 1 TABLET BY MOUTH THREE TIMES DAILY NEEDED FOR ITCHING 90 Tablet 06/22/20 25 2024 Discontinued Active Problems Problem Noted Date Diagnosed Date [...] spine with radiculopathy, cerv ical region 12/26/2018 shelter prescription opiate use 07/02/2018 Spinal stenosis of [...] 02/21 Hyperlipidemia Overview (03/09/2021): LDL: 160 (03/23) Resolved Problems Problem Noted [...] and unspecified noninf ectious gastroenteritis and colitis(558.9) 01/16 /2017 Encounters Date Type Department Care Team Description 07/10/2025 Orders Only [address] [address] Jean Gibbons MD 07/10/[address] [address] Jean Gibbons MD Medication Review; sinus/allergies 07/10/2025 Patient Self-Triage [facility] [address] [place] [address] 07/09/[address] [address] Jean Gibbons MD Provider Call 07/02/[address] [address] Katerin Glover FNP Yeast infection; Anxiety, generalized; Moderate episode of recurrent major depressive disorder (CMS/HCC) 06/22/[address] [address] Jean Gibbons MD Provider Call 06/21/[address] [address] Katerin Glover FNP Anxiety, generalized; Moderate episode of recurrent major depressive disorder (CMS/HCC) 06/17/2025 External Device Data [facility] Provider, Abstract 06/16/[address] [address] Jean Gibbons MD Patient Communication 06/15/2025 1:20 PM CDT Office Visit [address] [phone] Jean Gibbons MD Paroxysmal atrial fibrillation (CMS/HCC) (Primary Dx); Hyperthyroidism; Chronic anemia; JAVIER (acute kidney injury); Muscle weakness (generalized); History of falling; Myelodysplastic syndrome (CMS/HCC); Stage 3a chronic kidney disease (CMS/HCC) 06/15/[address] [place] [address] Jean Gibbons MD Patient Communication; Provider Call 06/09/[address], [id number] Provider, Abstract 06/04/[address] [place] [address] Jean Gibbons MD Chronic midline low back pain with left-sided sciatica; Spinal stenosis of lumbar region without neurogenic claudication; Primary osteoarthritis of both shoulders; Rotator cuff syndrome of right shoulder; Osteoarthritis of spine with radiculopathy, cervical region 05/28/2025 1:28 PM CDT - 05/28/2025 11:59 PM CDT Hospital Encounter [facility] CT Scan North [address] [place] [address] Jean Gibbons MD Discharge Disposition: Home or Self Care 05/28/2025 1:27 PM CDT - 05/28/2025 11:59 PM CDT Hospital Encounter [facility] Ultrasound North [address] [place] [address] Jean Gibbons MD Discharge Disposition: Home or Self Care 05/20/[address] [place] [address] Jean Gibbons MD 05/19/2025 Orders Only [address] [address] Jean Gibbons MD JAVIER (acute kidney injury) (Primary Dx); Infrarenal abdominal aortic aneurysm (AAA) without rupture 05/18/[address] [place] [address] Jean Gibbons MD Question 05/12/2025 External Device Data [facility] ABSTRACTION Provider, Abstract 05/12/[address] [facility] Outpatient Care Management - [place] [address] [place] [address] Jeannie Ceja Transportation Issues 05/08/[address] [address] Jean Gibbons MD Patient Communication; Results 05/07/2025 9:40 AM CDT Office Visit [address] [address] Jean Gibbons MD Infrarenal abdominal aortic aneurysm (AAA) without rupture (Primary Dx); Chronic anemia; Chronic systolic congestive heart failure; Muscle weakness (generalized); History of falling 05/07/[address] [address] Jean Gibbons MD 05/04/[address] [facility] Outpatient Care Management - [place] [address] [place] [address] Jeannie Ceja Needs [facility] Resources 05/01/[address] [address] Jean Gibbons MD 04/30/[address] [address] Jean Gibbons MD Medication Question 04/27/2025 External Device Data Initial Department [address] [facility] [address] PORTILLO: [place] [address] Eran Rosa Md 04/27/[address] [address] Jean Gibbons MD Clinical Consult Before Scheduling 04/21/[address] [phone] Jean Gibbons MD Information 04/15/2025 External Device Data [facility] ABSTRACTION Provider, Abstract 04/10/2025 External Device Data Initial Department [address] [place] [address] Dr [place]ILLO: [place] [address] Eran Emergency, 04/10/2025 Telephone [facility] [employer] [facility] [address] [place] [address] Leona Chu, HEALTH CARE COORDINATOR [facility] Connect from Last 3 Months Immunizations Immunization Administration Dates Next Due (PNEUMOVAX [...] DOSE QUADRIVALENT 65 YR UP PF IM 08/12/2024,08/15/2023,08/31/2022,08/11 Influenza Seasonal Unspecifi ed Formulation IM 08/11/2020,08/13/2015,08/07/2014,07/31,08/15/2012,09/08/2011,08/27/2007 ,08/27/2006,08/07/2005,08/07/2000 Influenza Vaccine High Dose 65+ Yrs IM 1 ,08/11/2019,08/09/2017,08/18,08/15/2012 Influenza Vaccine Nasal 08/09/2018 Influenza Vaccine Split [...] Smokeless Tobacco: Never Tobacco Cessation:Counseling Given: No Comments:Quit smoking: quit in the Alcohol Use [...] on file Legal Sex Female 4:19 AM 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 SPRAY 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 Gender Identity Not on file Sexual Orientation Not on file Last Filed Vital Signs [...] Mass Index 21.14 06/15/2025 1:40 PM CDT Plan of Treatment Upcoming Encounters Date Type Department Care Team (Late st Contact Info) Description 07/21/2025 3:00 PM CDT Video Visit [facility] [address] [place] [address] Jean Gibbons MD [address] [place] [address] Health Maintenance Due Date Last Done Comments ZOSTER VACCINE (1 of 2) 1995 DTAP/TDAP/TD VACCINES (1 - Tdap) 01/18/2006 01/18/20, 11/12/1997 COLORECTAL SCREENING 09/11/2016 09/11/2011 RSV VACCINE (60+ or ) (1 - 1-dose 75+ series) 2020 COVID-19 Vaccine ( - 2023-2 5 season) 2024 02/10/2021, 01/13/2021 INFLUENZA VACCINE (#1) 2025 , 08/12/2024, 08/12/2024, Additional history exists Traditional Medicare (ACO) A nnual Wellness Visit 08/13/2025 08/12/2024, 09/29/2022 OSTEOPOROSIS SCREENING 10/30/2027 10/30/2022 PNEUMOCOCCAL VACCINE 50+ YEARS Completed 0 06/07/2015, 10/16/2012, 10/16/2012 Goals Goal Patient Goal Type Associated Problems Recent Progress Patient-Stated? Author Heart Failure Goal Care Plan Heart Failure Problem No Glenny Nguyen Heart Failure Goal Care Plan Heart Failure Problem No Glenny Nguyen Heart Failure Goal Care Plan Heart Failure Problem No Judy Levy LPN Heart Failure Goal Care Plan Heart Failure Problem No Judy Lvey LPN Heart Failure Goal Care Plan Heart Failure Problem No Grandstaff, Judy, WELDER MACHINE OPERATOR Heart Failure Goal Care Plan Heart Failure Problem No Grandstaff, Judy, WELDER MACHINE OPERATOR Heart Failure Goal Care Plan Heart Failure Problem No Grand[place], Judy, WELDER MACHINE OPERATOR Heart Failure Goal Care Plan Heart Failure Problem No Grandstaff, Judy, WELDER MACHINE OPERATOR Heart Failure Goal Care Plan Heart Failure Problem No Grandstaff, Juyd, WELDER MACHINE OPERATOR Heart Failure Goal Care Plan Heart Failure Problem No Grandstaff, Judy, WELDER MACHINE OPERATOR Heart Failure Goal Care Plan Heart Failure Problem No Grandstaff, Judy, WELDER MACHINE OPERATOR Heart Failure Goal Care Plan Heart Failure Problem No Grandstaff, Judy, WELDER MACHINE OPERATOR Heart Failure Goal Care Plan Heart Failure Problem No Grandstaff, Judy, WELDER MACHINE OPERATOR Heart Failure Goal Care Plan Heart Failure Problem No Grandstaff, Judy, WELDER MACHINE OPERATOR Heart Failure Goal Care Plan Heart Failure Problem No Grandstaff, Judy, WELDER MACHINE OPERATOR Heart Failure Goal Care Plan Heart Failure Problem No Mele, Peyton M, WELDER MACHINE OPERATOR Heart Failure Goal Care Plan Heart Failure Problem No Cervantes, Azalia K, WELDER MACHINE OPERATOR Heart Failure Goal Care Plan Heart Failure Problem No Cervantes, Azalia K, WELDER MACHINE OPERATOR Heart Failure Goal Care Plan Heart Failure Problem No Mele, Peyton M, WELDER MACHINE OPERATOR Heart Failure Goal Care Plan Heart Failure Problem No Mele, Peyton M, WELDER MACHINE OPERATOR Heart Failure Goal Care Plan Heart Failure Problem No Mele, Peyton M, WELDER MACHINE OPERATOR Heart Failure Goal Care Plan Heart Failure Problem No Mele, Peyton M, WELDER MACHINE OPERATOR Heart Failure Goal Care Plan Heart Failure Problem No Mele, Peyton M, WELDER MACHINE OPERATOR Heart Failure Goal Care Plan Heart Failure Problem No Mele, Peyton M, WELDER MACHINE OPERATOR Heart Failure Goal Care Plan Heart Failure Problem No Mele, Peyton M, WELDER MACHINE OPERATOR Heart Failure Goal Care Plan Heart Failure Problem No Mele, Peyton M, WELDER MACHINE OPERATOR Heart Failure Goal Care Plan Heart Failure Problem No Mele, Peyton M, WELDER MACHINE OPERATOR Heart Failure Goal Care Plan Heart Failure Problem No Mele, Peyton M, WELDER MACHINE OPERATOR Heart Failure Goal Care Plan Heart Failure Problem No Mele, Peyton M, WELDER MACHINE OPERATOR Heart Failure Goal Care Plan Heart Failure Problem No Mele, Peyton M, WELDER MACHINE OPERATOR Heart Failure Goal Care Plan Heart Failure Problem No Mele, Peyton M, WELDER MACHINE OPERATOR Heart Failure Goal Care Plan Heart Failure Problem No Mele, Peyton M, WELDER MACHINE OPERATOR Heart Failure Goal Care Plan Heart Failure Problem No Mele, Peyton M, WELDER MACHINE OPERATOR Heart Failure Goal Care Plan Heart Failure Problem No Mele, Peyton M, WELDER MACHINE OPERATOR Heart Failure Goal Care Plan Heart Failure [...] Heart Failure Problem No Mele, Peyton M, WELDER MACHINE OPERATOR Heart Failure Goal Care Plan Heart Failure Problem No Mele, Peyton M, WELDER MACHINE OPERATOR Heart Failure Goal Care Plan Heart Failure Problem No Rachel Ceja RN Procedures Procedure Name Priority Date/Time Associated Diagnosis Comments CBC WITH DIFFERENTIAL Routine 06/15/2025 2:34 PM CDT Paroxysmal atrial fibrillation (CMS/HCC) Chronic anemia JAVIER (acute kidney injury) Muscle weakness (generalized) T4 FREE Routine 06/15/2025 2:34 PM CDT Hyperthyroidism TSH Routine 06/15/2025 2:34 PM CDT Hyperthyroidism COMPREHENSIVE METABOLIC PANEL Routine 06/15/2025 2:34 PM CDT Paroxysmal atrial fibrillation (CMS/HCC) Chronic anemia JAVIER (acute kidney injury) Muscle weakness (generalized) US AORTA Routine 05/28/2025 2:03 PM CDT Infrarenal abdominal aortic aneurysm (AAA) without rupture CREATININE Stat 05/19/2025 9:10 AM CDT POC OCCULT BLOOD UP TO 3 CARDS Routine 04/17/2025 3:45 PM CDT Decreased hemoglobin XR DEXA BONE DENSITY AXIAL 1 OR MORE SITES Routine 10/30/2022 12:00 PM PAINT SPRAY INSPECTOR Asymptomatic menopausal state from Last 3 Months or Most Recently Relevant to Health Maintenance Results * (ABNORMAL) CBC WITH DIFFERENTIAL (06/15/2025 2:34 [...] [facility] Comment: Test Performed at: [facility] [address] [place] [address] Liliana Cotter MD Blood 06/15/2025 2:34 PM CDT 06/16/2025 5:03 AM CDT us Jean Gibbons MD HEMATOLOGY ORDERABLES Fin al Result [facility] [phone] [facility] [address] [place] [phone] * TSH (06/15/2025 2:34 PM CDT) Pathologist [facility] TSH 1.82 0.40 - 4.50 mIU/L [facility] Comment: Test Performed at: [facility] [address] [place] [phone] Liliana Cotter MD Blood 06/15/2025 2:34 PM CDT 06/16/2025 5:03 AM CDT us Jean Gibbons MD CHEMISTRY ORDERABLES Etta l Result [facility] [phone] [facility] [address] * T4 FREE (06/15/2025 2:34 PM CDT) Pathologist [facility] T4 FREE 1.5 0.8 - 1.8 ng/dL [facility] Comment: Test Performed at: [facility] [address] [place] [address] Liliana Cotter MD Blood 06/15/2025 2:34 PM CDT 06/16/2025 5:03 AM CDT Jean Gibbons MD CHEMISTRY ORDERABLES Etta l Result [facility] [phone] [facility] [address] [phone] * (ABNORMAL) COMPREHENSIVE METABOLIC PANEL (06/15/2025 2:34 [...] [facility] Comment: Test Performed at: [facility] [address] [place] [address] Liliana Cotter MD Blood 06/15/2025 2:34 PM CDT 06/16/2025 5:03 AM CDT us Jean Gibbons MD CHEMISTRY ORDERABLES Etta l Result Performing Organization Address City/State/[facility] Co de Phone Number [facility] [phone] [address] * US AORTA (05/28/2025 2:03 PM CDT) Anatomical Region Laterality Modality Abdomen Ultrasound 05/28/2025 1:35 PM CDT Narrative 05/28/2025 7:04 PM CDT [facility] Radiology Services - Noninvasive Vascular [address] [address] Noninvasive Vascular Lab Limited Abdominal Ultrasound Evaluation Patient: Cris New Study ID: [id number] Gender: F : 1945 Age: 80 Room: Height: 167.4cm Weight: 71.2kg BSA: 1.83m^2 Pt status: Study Date: 05/28/2025 Study Time: 01:35:06 PM BSA: 1.83m^2 Ordering: Jean Gibbons Interpreting:Opal Rosado Seamless Tube Mill Operator: Katharine Matos History: Abdominal pain. Summary Impression: Infrarenal abdominal aortic ectasia. No evidence of AAA. Study data: Limited abdominal ultrasound evaluation. Duplex scan. Height: 167.4cm. Height: 65.9in. Weight: 71.2kg. Weight: 156.9lb. BMI: 25.4kg/m^2. BSA: 1.83m^2. Aorta and systemic arteries: Abdominal aorta: The vessel is well visualized. Arterial flow: - Aorta proximal: Aorta proximal 1.69cm 2.52cm - Aorta mid: Aorta mid 2.65cm 2.63cm - Aorta distal: Aorta distal 1.95cm 2.44cm Yin mendiola sign - R iliac: R iliac Not identified due to bowel gas and pt sensitivioty to pressure. - L iliac: L iliac Not visualized due to bowel gas and pt sensitvity to pressure. Prepared and Electronically Authenticated Opal Rosado Confirmed 05/28/2025 19:04 Procedure Note Opal Rosado DO - 05/28/2025 [facility] Radiology Services - Noninvasive Vascular [address] [address] Noninvasive Vascular Lab Limited Abdominal Ultrasound Evaluation Patient: Cris New Study ID: [id number] Gender: F : 1945 Age: 80 Room: Height: 167.4cm Weight: 71.2kg BSA: 1.83m^2 Pt status: Study Date: 05/28/2025 Study Time: 01:35:06 PM BSA: 1.83m^2 Ordering: Jean Gibbons Interpreting:Opal Rosado Seamless Tube Mill Operator: Carlo Katharine History: Abdominal pain. Summary Impression: Infrarenal abdominal aortic ectasia. No evidence of AAA. Study data: Limited abdominal ultrasound evaluation. Duplex scan. Height: 167.4cm. Height: 65.9in. Weight: 71.2kg. Weight: 156.9lb.BMI: 25.4kg/m^2. BSA: 1.83m^2. Aorta and systemic arteries: Abdominal aorta: The vessel is well visualized. Arterial flow: - Aorta proximal: Aorta proximal 1.69cm 2.52cm - Aorta mid: Aorta mid 2.65cm 2.63cm - Aorta distal: Aorta distal 1.95cm 2.44cm Yin mendiola sign - R iliac: R iliac Not identified due to bowel gas and pt sensitiviotyto pressure. - L iliac: L iliac Not visualized due to bowel gas and pt sensitvity to pressure. Prepared and Electronically Authenticated Opal Rosado Confirmed 05/28/2025 19:04 Jean Gibbons MD US ORDERABLES Final Res ult * (ABNORMAL) CREATININE (05/19/2025 9:10 AM CDT) CREATININE 1.68(H) 0.51 - 0.95 mg/dL 05/19/2025 9:27 AM CDT [facility] Comment:The GFR result is no t clinically significant on patients <18 or >70 years of age. GFR 31 mL/min/1.7 3 sq meter 05/19/2025 9:27 AM CDT [facility] Comment:eGFR calculated with 2020 CKD-EPI equation. Vegetarian diet, extremely high or low muscle mass, and may affect results. Cystatin C with Glomerular Filtration Rate is a suitable alternative for these patients. Blood BLOOD SPECIMEN / Unknown Collection / Unknown 05/19/2025 9:10 AM CDT 05/19/2025 9:11 AM CDT Jean Gibbons MD CHEMISTRY ORDERABLES Etta l Result [facility] CLIA # [id number] [address] [place] [address] * POC OCCULT BLOOD UP TO 3 CARDS (04/17/2025 3:45 PM CDT) OCCULT BLOOD 1 CARD POC Negative Negative [facility] OCCULT BLOOD 2 CARD POC Negative Negative, Indeterminate [facility] OCCULT BLOOD 3 CARD POC Negative Negative, Indeterminate [facility] INTERNAL KIT QC POC [place] Pass [facility] CARD LOT NUMBER POC [id number] [facility] CARD EXPIRATION DATE POC 10/11/2026 [facility] DEVELOPER LOT NUMBER POC [id number] [facility] DEVELOPER EXPIRATION DATE POC 07/11/2027 [facility] Stool STOOL SPECIMEN / Unknown 04/17/2025 3:45 PM CDT Jean Gibbons MD POINT OF CARE TESTING Fin al Result Performing Organization Address City/[facility] Co de Phone Number [facility] CLIA# [id number] [address] [address] * XR DEXA BONE DENSITY AXIAL 1 OR MORE SITES (10/30/2022 12:00 PM PAINT SPRAY INSPECTOR) T-SCORE SPINE 1.50 -1.0 - 1.0 INTER FACE SYSTEM T-SCORE HIP (LEFT) -1.60 -1.0 - 1.0 INTERFACE SYSTEM T-SCORE WRIST (LEFT) -1.10 -1.0 - 1.0 INTERFACE SYSTEM Anatomical Region Laterality Modality Digital Radiogra phy 10/30/2022 12:3 1 PM PAINT SPRAY INSPECTOR Impressions 10/30/2022 1:25 PM PAINT SPRAY INSPECTOR IMPRESSION: 1. Osteopenia. 2. Fracture risk 4 times that of a young healthy adult. 3. Current recommendations are that a follow-up bone mineral density BMD obtained at an interval of not less than two years, except for in specific circumstances, such as after the initiation or change of therapy, or if the patient is at increased risk for fracture. Please note, the lumbar bone mineral density may be spuriously elevated due to vertebral compression fracture, osteophytes, or aortic calcification. The femoral neck bone mineral density may be falsely elevated in the presence of degenerative changes. For postmenopausal women, men > age 65 years and for men aged 50-65 years with other risk factors, the WHO defines a normal BMD as a T score at or above -1.0, osteopenia as a T-score greater than -2.5 and less than -1.0 SD below peak BMD, and osteoporosis as a T-score at or below 2.5 SD peak BMD. The risk of osteoporotic fracture doubles for each SD (T-score) below peak BMD. A low Z-score may warrant consideration of secondary causes of accelerated bone loss. For premenopausal women, men under age 50 and for children, Z-scores are used to compare bone density to age-matched controls. The diagnosis of osteoporosis in these population's requires clinical assessment of additional risk factors. For patients not currently receiving treatment for diminished BMD, FRAX (fracture risk assessment tool) software can be used to calculate the 10-year fracture probability. The estimate is based on the patient's age, gender, ethnicity, height, weight, femoral neck BMD, T-score and several risk factors and is endorsed by the WHO. Current guidelines recommend considering initiation of medical therapy in postmenopausal women and men aged 50 or older with (a) 10 year fracture probability by FRAX of 3% (or greater) for hip fracture or 20% (or greater) for major osteoporotic fracture, or (b) a T-score of -2.5 at the lower spine or hip or, (c) a known hip or vertebral fracture. Treatment decisions require clinical judgment and consideration of individual patient factors, including patient preferences, comorbidities, risk factors not captured in the FRAX model. www.shef.ac.uk/FRAX/. Enter Hologic for Select DXA and the Femoral Neck BMD value. Narrative 10/30/2022 1:25 PM PAINT SPRAY INSPECTOR EXAM: XR DEXA BONE DENSITY AXIAL 1 OR MORE SITES DATE/TIME OF EXAM: 10/30/2022 12:00 PM REASON FOR STUDY: See Diagnosis DIAGNOSIS: Asymptomatic menopausal state COMPARISON: None TECHNIQUE: The bone mineral density (BMD) was determined using a dual-energy x-ray source (CSMG). Fracture risk is related to the absolute bone density and is therefore expressed as compared to a young gender-matched population fulfillment representative of the medial peak bone density. Bone mineral density of the lumbar spine, L1-L4: BMD (g/cm2): 1.213 T-score (SD of peak BMD): 1.5 Z score (SD of age-matched BMD): 4.1 Bone mineral density of the neck of the left femur: BMD (g/cm2): 0.615 T-score (SD of peak BMD): -2.1 Z score (SD of age-matched BMD): 0.1 Bone mineral density of the middle one third left radius: BMD (g/cm2): 0.691 T-score (SD of peak BMD): 0.1 Z score (SD of age-matched BMD): 3.0 Procedure Note Lary Perez MD - 10/30/2022 EXAM: XR DEXA BONE DENSITY AXIAL 1 OR MORE SITES DATE/TIME OF EXAM: 10/30/2022 12:00 PM REASON FOR STUDY: See Diagnosis DIAGNOSIS: Asymptomatic menopausal state COMPARISON: None TECHNIQUE: The bone mineral density (BMD) was determined using a dual-energy x-ray source (CSMG). Fracture risk is related to the absolute bone density and is therefore expressed as compared to a young gender-matched population fulfillment representative of the medial peak bone density. Bone mineral density of the lumbar spine, L1-L4: BMD (g/cm2): 1.213 T-score (SD of peak BMD): 1.5 Z score (SD of age-matched BMD): 4.1 Bone mineral density of the neck of the left femur: BMD (g/cm2): 0.615 T-score (SD of peak BMD): -2.1 Z score (SD of age-matched BMD): 0.1 Bone mineral density of the middle one third left radius: BMD (g/cm2): 0.691 T-score (SD of peak BMD): 0.1 Z score (SD of age-matched BMD): 3.0 IMPRESSION: 1. Osteopenia. 2. Fracture risk 4 times that of a young healthy adult. 3. Current recommendations are that a follow-up bone mineral density BMD obtained at an interval of not less than two years, except for in specific circumstances, such as after the initiation or change of therapy, or if the patient is at increased risk for fracture. Please note, the lumbar bone mineral density may be spuriously elevated due to vertebral compression fracture, osteophytes, or aortic calcification. The femoral neck bone mineral density may be falsely elevated in the presence of degenerative changes. For postmenopausal women, men > age 65 years and for men aged 50-65 years with other risk factors, the WHO defines a normal BMD as a T score at or above -1.0, osteopenia as a T-score greater than -2.5 and less than -1.0 SD below peak BMD, and osteoporosis as a T-score at or below 2.5 SD peak BMD. The risk of osteoporotic fracture doubles for each SD (T-score) below peak BMD. A low Z-score may warrant consideration of secondary causes of accelerated bone loss. For premenopausal women, men under age 50 and for children, Z-scores are used to compare bone density to age-matched controls. The diagnosis of osteoporosis in these population's requires clinical assessment of additional risk factors. For patients not currently receiving treatment for diminished BMD, FRAX (fracture risk assessment tool) software can be used to calculate the 10-year fracture probability. The estimate is based on the patient's age, gender, ethnicity, height, weight, femoral neck BMD, T-score and several risk factors and is endorsed by the WHO. Current guidelines recommend considering initiation of medical therapy in postmenopausal women and men aged 50 or older with (a) 10 year fracture probability by FRAX of 3% (or greater) for hip fracture or 20% (or greater) for major osteoporotic fracture, or (b) a T-score of -2.5 at the lower spine or hip or, (c) a known hip or vertebral fracture. Treatment decisions require clinical judgment and consideration of individual patient factors, including patient preferences, comorbidities, risk factors not captured in the FRAX model. www.shef.ac.uk/FRAX/. Enter Hologic for Select DXA and the Femoral Neck BMD value. us Amberly [facility] ORDERABLES Fi nal Result from Last 3 Months or Most Recently Relevant to Health Maintenance Additional Health Concerns Active Problems Noted Date [...] Failure Problem 12/04/2024 Heart Failure Problem 12/04/2024 Insurance [facility] MEDICARE PART A AND B [place] [id number] Advance Directives For more information, please contact: [phone] * Full Code (Latest Code Status on File) Date Activated Date Inactivated Comments 03/01/2025 12:49 AM 03/02/2025 7:58 PM Care Teams Wood Model Builder Relationship Specialty Start Date End Date Jean Gibbons MD [address] [facility] [address] [place] [address] PCP - General Family Practice 04/09/18
--- OUTSIDE RECORDS SUMMARY | 2025-07-11 16:55 | XMS_ITS | Encounter Summary ---
Author Organization [facility] Address [address] [place] [address] Care Team Providers Care Cloth Dye Range Operator Name Role Phone Jean Gibbons MD Primary Care Provider +1 [phone] Encounter Details Date Type Department Care Team (Latest Contact Info) Description 07/26/2004 Outpatient Historical [facility] Medicine [place] [address] [address] Deanna Parada NP NO ADDRESS ON FILE PNEUMONIA, ORGANISM NOS (Primary Dx); Diverticulosis of colon Social History Tobacco Use Types Packs/Day Years Used Date Smoking Tobacco: Never Assessed Comments Unknown Sex and Gender Information Value Date Recorded Sex Assigned at Not on file Legal Sex Female 4:08 AM TRANSIT OPERATOR Gender Identity Not on file Sexual Orientation Not on file documented as of this encounter Plan of Treatment Not on file documented as of this encounter Visit Diagnoses Diagnosis Pneumonia, organism unspecified(486)- Primary Pneumonia, organism unspecified Diverticulosis of colon Diverticulosis of colon (without mention of hemorrhage) documented in this encounter Additional Health Concerns Infection Onset Date Last Indicated Resolved Time R/O COVID-19 10/21/2020 10/21/2020 10/28/2021 9:17 PM TRANSIT OPERATOR documented as of this encounter Care Teams Cloth Dye Range Operator Relationship Specialty Start Date End Date Jean Gibbons MD [address] [address] PCP - General Family Practice 04/09/18 documented as of this encounter
--- OUTSIDE RECORDS SUMMARY | 2025-07-11 16:55 | XMS_ITS | Encounter Summary ---
Author Organization [facility] Address [address] [place] [address] Care Team Providers Care Vp Design Name Role Phone Jean Gibbons MD Primary Care Provider +1 [phone] Encounter Details Date Type Department Care Team (Latest Contact Info) Description 01/11/2007 Outpatient Historical [facility] Medicine [place] [address] [address] Ben Winters DO NO ADDRESS ON FILE Other Affections of Shoulder Region, not Elsewhere Classified (Primary Dx) Social History Tobacco Use Types Packs/Day Years Used Date Smoking Tobacco: Never Assessed Comments Unknown Sex and Gender Information Value Date Recorded Sex Assigned at Not on file Legal Sex Female 4:08 AM PREPARATORY TECHNICIAN Gender Identity Not on file Sexual Orientation Not on file documented as of this encounter Plan of Treatment Not on file documented as of this encounter Visit Diagnoses Diagnosis Other affections of shoulder region, not elsewhere classified- Primary documented in this encounter Additional Health Concerns Infection Onset Date Last Indicated Resolved Time R/O COVID-19 10/21/2020 10/21/2020 10/28/2021 9:17 PM PREPARATORY TECHNICIAN documented as of this encounter Care Teams Vp Design Relationship Specialty Start Date End Date Jean Gibbons MD [address] [address] PCP - General Family Practice 04/09/18 documented as of this encounter
--- OUTSIDE RECORDS SUMMARY | 2025-07-11 16:55 | XMS_ITS | Encounter Summary ---
Author Organization [facility] Address [address] [address] [facility] [address] [place]: Epic Prelude ADT [place] [address] Care Team Providers Care Medical Auditor Name Role Phone Jean Gibbons MD Primary Care Provider +1 [phone] Encounter Details Date Type Department Care Team (Late st Contact Info) Description 11/14/1999 Outpatient Historical David Bailey, DPM NO ADDRESS ON FILE Social History Tobacco Use Types Packs/Day Years Used Date Smoking Tobacco: Never Assessed Comments Unknown Sex and Gender Information Value Date Recorded Sex Assigned at Not on file Legal Sex Female 4:08 AM CURING OVEN TENDER Gender Identity Not on file Sexual Orientation Not on file documented as of this encounter Plan of Treatment Not on file documented as of this encounter Visit Diagnoses Not on filedocumented in this encounter Additional Health Concerns Infection Onset Date Last Indicated Resolved Time R/O COVID-19 10/21/2020 10/21/2020 10/28/2021 9:17 PM CURING OVEN TENDER documented as of this encounter Care Teams Medical Auditor Relationship Specialty Start Date End Date Jean Gibbons MD [address] [facility] [address] [place] [address] PCP - General Family Practice 04/09/18 documented as of this encounter
--- OUTSIDE RECORDS SUMMARY | 2025-07-11 16:55 | XMS_ITS | Encounter Summary ---
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) Social History Tobacco Use Types Packs/Day Years Used Date Smoking Tobacco: Never Assessed Comments Unknown Sex and Gender Information Value Date Recorded Sex Assigned at Not on file Legal Sex Female 4:08 AM SHIP LOADER Gender Identity Not on file Sexual Orientation Not on file documented as of this encounter Plan of Treatment Not on file documented as of this encounter Visit Diagnoses Diagnosis Toxic uninodular goiter without mention of thyrotoxic crisis or storm- Primary documented in this encounter Additional Health Concerns Infection Onset Date Last Indicated Resolved Time R/O COVID-19 10/21/2020 10/21/2020 10/28/2021 9:17 PM SHIP LOADER documented as of this encounter Care Teams Clothing Consultant Relationship Specialty Start Date End Date Jean Gibbons MD [address] [place] [address] PCP - General Family Practice 04/09/18 documented as of this encounter
--- OUTSIDE RECORDS SUMMARY | 2025-07-11 16:55 | XMS_ITS | Encounter Summary ---
Author Organization [facility] Address [address] [place] [address] Care Team Providers Care Joint Cleaning Machine Operator Name Role Phone Jean Gibbons MD Primary Care Provider [phone] [phone] Encounter Details Date Type Department Care Team (Latest Contact Info) Description 08/27/2006 Outpatient Historical [facility] Medicine [place] [address] [address] Ben Winters DO NO ADDRESS ON FILE Vaccine for influenza (Primary Dx) Social History Tobacco Use Types Packs/Day Years Used Date Smoking Tobacco: Never Assessed Comments Unknown Sex and Gender Information Value Date Recorded Sex Assigned at Not on file Legal Sex Female 4:08 AM FISH HATCHERY WORKER Gender Identity Not on file Sexual Orientation Not on file documented as of this encounter Plan of Treatment Not on file documented as of this encounter Visit Diagnoses Diagnosis Vaccine for influenza- Primary Need for prophylactic vaccination and inoculation against influenza documented in this encounter Additional Health Concerns Infection Onset Date Last Indicated Resolved Time R/O COVID-19 10/21/2020 10/21/2020 10/28/2021 9:17 PM FISH HATCHERY WORKER documented as of this encounter Care Teams Joint Cleaning Machine Operator Relationship Specialty Start Date End Date Jean Gibbons MD [address] [address] PCP - General Family Practice 04/09/18 documented as of this encounter
--- OUTSIDE RECORDS SUMMARY | 2025-07-11 16:55 | XMS_ITS | Encounter Summary ---
Author Organization [facility] Address [address] [place] [address] Care Team Providers Care Racing Driver Name Role Phone Jean Gibbons MD Primary Care Provider [phone] [phone] Encounter Details Date Type Department Care Team (Latest Contact Info) Description 07/29/1999 Outpatient Historical [facility] Podiatry-[facility] [place] [address] [place] [address] David Bailey, DPM NO ADDRESS ON FILE Hallux valgus (Primary Dx) Social History Tobacco Use Types Packs/Day Years Used Date Smoking Tobacco: Never Assessed Comments Unknown Sex and Gender Information Value Date Recorded Sex Assigned at Not on file Legal Sex Female 4:08 AM CONTRACTS SPECIALIST Gender Identity Not on file Sexual Orientation Not on file documented as of this encounter Plan of Treatment Not on file documented as of this encounter Visit Diagnoses Diagnosis Hallux valgus- Primary Hallux valgus (acquired) documented in this encounter Additional Health Concerns Infection Onset Date Last Indicated Resolved Time R/O COVID-19 10/21/2020 10/21/2020 10/28/2021 9:17 PM CONTRACTS SPECIALIST documented as of this encounter Care Teams Racing Driver Relationship Specialty Start Date End Date Jean Gibbons MD [address] [place] [address] PCP - General Family Practice 04/09/18 documented as of this encounter
--- OUTSIDE RECORDS SUMMARY | 2025-07-11 16:55 | XMS_ITS | Encounter Summary ---
Author Organization [facility] Address [address] [place] [address] Care Team Providers Care Cleaner Signs Name Role Phone Jean Gibbons MD Primary Care Provider [phone] [phone] Encounter Details Date Type Department Care Team (Latest Contact Info) Description 11/28/1999 Outpatient Historical [facility] Podiatry-[facility] [address] [place] [address] David Bailey, DPM NO ADDRESS ON FILE Hallux valgus (Primary Dx) Social History Tobacco Use Types Packs/Day Years Used Date Smoking Tobacco: Never Assessed Comments Unknown Sex and Gender Information Value Date Recorded Sex Assigned at Not on file Legal Sex Female 4:08 AM RING SPINNER Gender Identity Not on file Sexual Orientation Not on file documented as of this encounter Plan of Treatment Not on file documented as of this encounter Visit Diagnoses Diagnosis Hallux valgus- Primary Hallux valgus (acquired) documented in this encounter Additional Health Concerns Infection Onset Date Last Indicated Resolved Time R/O COVID-19 10/21/2020 10/21/2020 10/28/2021 9:17 PM RING SPINNER documented as of this encounter Care Teams Cleaner Signs Relationship Specialty Start Date End Date Jean Gibbons MD [address] [place] [address] PCP - General Family Practice 04/09/18 documented as of this encounter
--- OUTSIDE RECORDS SUMMARY | 2025-07-11 16:55 | XMS_ITS | Encounter Summary ---
Author Organization [facility] Address [address] [place] [address] Care Team Providers Care Assistant Professor Of Religion Name Role Phone Jean Gibbons MD Primary Care Provider [phone] [phone] Encounter Details Date Type Department Care Team (Latest Contact Info) Description 07/08/1998 Outpatient Historical [facility] Nuclear Med Services-[facility] [place] [address] [address] Nicolas Huntley MD [address] [place] [address] Nonspecific abnormal results of other endocrine function study (Primary Dx) Social History Tobacco Use Types Packs/Day Years Used Date Smoking Tobacco: Never Assessed Comments Unknown Sex and Gender Information Value Date Recorded Sex Assigned at Not on file Legal Sex Female 4:08 AM DIRECTOR ELECTRONICS Gender Identity Not on file Sexual Orientation Not on file documented as of this encounter Plan of Treatment Not on file documented as of this encounter Visit Diagnoses Diagnosis Nonspecific abnormal results of other endocrine function study- Primary documented in this encounter Additional Health Concerns Infection Onset Date Last Indicated Resolved Time R/O COVID-19 10/21/2020 10/21/2020 10/28/2021 9:17 PM DIRECTOR ELECTRONICS documented as of this encounter Care Teams Assistant Professor Of Religion Relationship Specialty Start Date End Date Jean Gibbons MD [address] [facility] [address] [place] [phone] PCP - General Family Practice 04/09/18 documented as of this encounter
--- OUTSIDE RECORDS SUMMARY | 2025-07-11 16:55 | XMS_ITS | Encounter Summary ---
Author Organization [facility] Address [address] [place] [address] Care Team Providers Care Client Sales And Service Officer Name Role Phone Jean Gibbons MD Primary Care Provider [phone] [phone] Encounter Details Date Type Department Care Team (Latest Contact Info) Description 09/08/2004 Outpatient Historical [facility] Medicine [place] [address] [address] Lesley Ortega, RHEUMATOLOGIST [address] [place] [address] Pneumococcal pneumonia (Primary Dx) Social History Tobacco Use Types Packs/Day Years Used Date Smoking Tobacco: Never Assessed Comments Unknown Sex and Gender Information Value Date Recorded Sex Assigned at Not on file Legal Sex Female 4:08 AM APPLICATIONS ADMINISTRATOR Gender Identity Not on file Sexual Orientation Not on file documented as of this encounter Plan of Treatment Not on file documented as of this encounter Visit Diagnoses Diagnosis Pneumococcal pneumonia- Primary Pneumococcal pneumonia (streptococcus pneumoniae pneumonia) documented in this encounter Additional Health Concerns Infection Onset Date Last Indicated Resolved Time R/O COVID-19 10/21/2020 10/21/2020 10/28/2021 9:17 PM APPLICATIONS ADMINISTRATOR documented as of this encounter Care Teams Client Sales And Service Officer Relationship Specialty Start Date End Date Jean Gibbons MD [address] [address] PCP - General Family Practice 04/09/18 documented as of this encounter
--- OUTSIDE RECORDS SUMMARY | 2025-07-11 16:55 | XMS_ITS | Encounter Summary ---
Author Organization [facility] Address [address] [place] [address] Care Team Providers Care Iphone Developer Name Role Phone Jean Gibbons MD Primary Care Provider [phone] [phone] Reason for Referral * Radiology Services (Routine) - Closed Specialty Diagnoses / Procedures Referred By Contac t Referred To Contact Diagnoses Abnormal mammogram Procedures MAMMO DIAG BILAT 3D SHAI W OR WO CAD MAMMO DIAGNOSTIC BILATERAL W OR WO CAD CHG DIAGNOSTIC MAMMOGRAPHY COMPUTER-AIDED DETCJ BI CHG DIGITAL BREAST TOMOSYNTHESIS BILATERAL Amberly Lima FNP Phone: tel: fax: [facility] Pre-Registration [place] CALL TO MAKE APPOINTMENT ONLY [address] [place] [address] Phone: tel: fax: Referral ID Status Reason Start Date Expiration Date Visits Re quested Visits Authorized [id number] Closed 02/24/2019 03/26/2020 1 1 Encounter Details Date Type Department Care Team (Late st Contact Info) Description 04/10/2019 Ancillary Orders [facility] [address] [address] Amberly Lima FNP [address] [place] [phone] Abnormal mammogram Social History Tobacco Use Types Packs/Day Years Used Date Smoking Tobacco: Former Cigarettes Q uit: 08/12/1990 Smokeless Tobacco: Never Comments:quit in the Alcohol Use Standard Drinks/Week Comments No 0 (1 standard drink = 0.6 oz pur e alcohol) Comments No Sex and Gender Information Value Date Recorded Sex Assigned at Not on file Legal Sex Female 4:08 AM PROCESS CONSULTANT Gender Identity Not on file Sexual Orientation Not on file Occupation Industry Job Start Date Job End Date Not on file Not on file Not on file Not on file documented as of this encounter Plan of Treatment Not on file documented as of this encounter Results * (ABNORMAL) MAMMO DIAG BILAT 3D SHAI W OR WO CAD (04/15/2019 12:36 PM CDT) Anatomical Region Laterality Modality Breast Bilateral Mammography 04/15/2019 11:3 6 AM CDT Narrative 04/16/2019 7:48 AM CDT MAMMO DIAG BILAT 3D SHAI W OR WO CAD INDICATION FOR EXAMINATION: See Diagnosis COMPARISONS: Mammogram dated 10/14/2018, 05/01/2018, 05/09/2017, 05/03/2016, 04/15/2015, 04/03/2014, 03/25/2013 04/15/2013, 02/05/2012, 05/16/2011. BREAST COMPOSITION: Heterogeneously dense which may obscure small masses. FINDINGS: 3D MLO and CC digital tomosynthesis images were acquired and synthesized 2D images (C view) were generated. This digital mammogram was also analyzed by the Computer Aided Detection System CAD). Follow-up for probably benign findings within each breast. Multiple bilateral waxing and waning circumscribed masses are noted. These masses appear stable to smaller in size in comparison to the prior examinations. Benign calcifications are seen bilaterally. No suspicious abnormality is identified. ASSESSMENT: Probably benign. BI-RADS 3. RECOMMENDATIONS: Bilateral diagnostic mammogram in one year. [id number] Procedure Note Edgardo Ambrose MD - 04/16/2019 MAMMO DIAG BILAT 3D SHAI W OR WO CAD INDICATION FOR EXAMINATION: See Diagnosis COMPARISONS: Mammogram dated 10/14/2018, 05/01/2018, 05/09/2017, 05/03/2016, 04/15/2015, 04/03/2014, 03/25/2013 04/15/2013, 02/05/2012, 05/16/2011. BREAST COMPOSITION: Heterogeneously dense which may obscure small masses. FINDINGS: 3D MLO and CC digital tomosynthesis images were acquired and synthesized 2D images (C view) were generated. This digital mammogram was also analyzed by the Computer Aided Detection System CAD). Follow-up for probably benign findings within each breast. Multiple bilateral waxing and waning circumscribed masses are noted. These masses appear stable to smaller in size in comparison to the prior examinations. Benign calcifications are seen bilaterally. No suspicious abnormality is identified. ASSESSMENT: Probably benign. BI-RADS 3. RECOMMENDATIONS: Bilateral diagnostic mammogram in one year. [id number] Amberly Lima MACHINE TOOL MECHANIC MAMMO ORDERABLES Final Result documented in this encounter Visit Diagnoses Diagnosis Abnormal mammogram Abnormal mammogram, unspecified Abnormal mammogram Abnormal mammogram, unspecified documented in this encounter Additional Health Concerns Infection Onset Date Last Indicated Resolved Time R/O COVID-19 10/21/2020 10/21/2020 10/28/2021 9:17 PM PROCESS CONSULTANT Assessment Noted Time PHQ-9 Depression Total Score: 1 01/24/20 19 10:00 AM CDT documented as of this encounter Care Teams Iphone Developer Relationship Specialty Start Date End Date Jean Gibbons MD [address] [phone] PCP - General Family Practice 04/09/18 documented as of this encounter
--- OUTSIDE RECORDS SUMMARY | 2025-07-11 16:55 | XMS_ITS | Encounter Summary ---
Author Organization [facility] Address [address] [place] [address] Care Team Providers Care Tosser Name Role Phone Jean Gibbons MD Primary Care Provider +1 -[phone] Encounter Details Date Type Department Care Team (Latest Contact Info) Description 11/21/1999 Outpatient Historical [facility] Podiatry-[facility] [place] [address] [place] [address] David Bailey, DPM NO ADDRESS ON FILE Hallux valgus (Primary Dx) Social History Tobacco Use Types Packs/Day Years Used Date Smoking Tobacco: Never Assessed Comments Unknown Sex and Gender Information Value Date Recorded Sex Assigned at Not on file Legal Sex Female 4:08 AM SENIOR ENLISTED ADVISOR Gender Identity Not on file Sexual Orientation Not on file documented as of this encounter Plan of Treatment Not on file documented as of this encounter Visit Diagnoses Diagnosis Hallux valgus- Primary Hallux valgus (acquired) documented in this encounter Additional Health Concerns Infection Onset Date Last Indicated Resolved Time R/O COVID-19 10/21/2020 10/21/2020 10/28/2021 9:17 PM SENIOR ENLISTED ADVISOR documented as of this encounter Care Teams Tosser Relationship Specialty Start Date End Date Jean Gibbons MD [address] [place] [address] PCP - General Family Practice 04/09/18 documented as of this encounter
--- OUTSIDE RECORDS SUMMARY | 2025-07-11 16:55 | XMS_ITS | Encounter Summary ---
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) Social History Tobacco Use Types Packs/Day Years Used Date Smoking Tobacco: Never Assessed Comments Unknown Sex and Gender Information Value Date Recorded Sex Assigned at Not on file Legal Sex Female 4:08 AM INTERACTIVE MEDIA PROJECT MANAGER Gender Identity Not on file Sexual [...] R/O COVID-19 10/21/2020 10/21/2020 10/28/2021 9:17 PM INTERACTIVE MEDIA PROJECT MANAGER documented as of this encounter Care Teams Lead Burner Supervisor Relationship Specialty Start Date End Date Jean Gibbons MD [address] [place] [address] PCP - General Family Practice 04/09/18 documented as of this encounter
--- OUTSIDE RECORDS SUMMARY | 2025-07-11 16:55 | XMS_ITS | Encounter Summary ---
Author Organization [facility] Address [address] [place] [address] Care Team Providers Care Airport Screener Name Role Phone Jean Gibbons MD Primary Care Provider +1 -[phone] Encounter Details Date Type Department Care Team (Latest Contact Info) Description 01/02/2007 Outpatient Historical [facility] Medicine [address] [address] Ben Winters DO NO ADDRESS ON FILE Unspecified Backache (Primary Dx); Unspecified Essential Hypertension; Chronic Airway Obstruction, not Elsewhere Classified (CMS/HCC) Social History Tobacco Use Types Packs/Day Years Used Date Smoking Tobacco: Never Assessed Comments Unknown Sex and Gender Information Value Date Recorded Sex Assigned at Not on file Legal Sex Female 4:08 AM SEAMER ELASTIC BAND Gender Identity Not on file Sexual Orientation Not on file documented as of this encounter Plan of Treatment Not on file documented as of this encounter Visit Diagnoses Diagnosis Backache, unspecified- Primary Unspecified essential hypertension Chronic airway obstruction, not elsewhere classified (CMS/HCC) Chronic airway obstruction, not elsewhere classified documented in this encounter Additional Health Concerns Infection Onset Date Last Indicated Resolved Time R/O COVID-19 10/21/2020 10/21/2020 10/28/2021 9:17 PM SEAMER ELASTIC BAND documented as of this encounter Care Teams Airport Screener Relationship Specialty Start Date End Date Jean Gibbons MD [address] [address] PCP - General Family Practice 04/09/18 documented as of this encounter
--- OUTSIDE RECORDS SUMMARY | 2025-07-11 16:55 | XMS_ITS | Encounter Summary ---
Author Organization [facility] Address [address] [place] [address] Care Team Providers Care Avionics Engineer Name Role Phone Jean Gibbons MD Primary Care Provider +1 [phone] Encounter Details Date Type Department Care Team (Latest Contact Info) Description 06/09/1998 Outpatient Historical [facility] Endocrinology-[facility] [place] [address] [place] [address] Mine Tucker MD [address], [place] [id number] Nonspecific abnormal results of other endocrine function study (Primary Dx) Social History Tobacco Use Types Packs/Day Years Used Date Smoking Tobacco: Never Assessed Comments Unknown Sex and Gender Information Value Date Recorded Sex Assigned at Not on file Legal Sex Female 4:08 AM PRODUCTION SKI REPAIRER Gender Identity Not on file Sexual Orientation Not on file documented as of this encounter Plan of Treatment Not on file documented as of this encounter Visit Diagnoses Diagnosis Nonspecific abnormal results of other endocrine function study- Primary documented in this encounter Additional Health Concerns Infection Onset Date Last Indicated Resolved Time R/O COVID-19 10/21/2020 10/21/2020 10/28/2021 9:17 PM PRODUCTION SKI REPAIRER documented as of this encounter Care Teams Avionics Engineer Relationship Specialty Start Date End Date Jean Gibbons MD [address] [place] [address] PCP - General Family Practice 04/09/18 documented as of this encounter
--- OUTSIDE RECORDS SUMMARY | 2025-07-11 16:55 | XMS_ITS | Encounter Summary ---
Author Organization [facility] Address [address] [place] [address] Care Team Providers Care Eyeglass Fitter Name Role Phone Jean Gibbons MD Primary Care Provider +1 [phone] Encounter Details Date Type Department Care Team (Latest Contact Info) Description 11/26/1998 Outpatient Historical [facility] Endocrinology-[place] [place] [address] [place] [address] Mine Tucker MD [address] [place], [place] [id number] Thyrotoxicosis without mention of goiter or other cause, without mention of thyrotoxic crisis or storm (Primary Dx) Social History Tobacco Use Types Packs/Day Years Used Date Smoking Tobacco: Never Assessed Comments Unknown Sex and Gender Information Value Date Recorded Sex Assigned at Not on file Legal Sex Female 4:08 AM MOLD REPAIR TECHNICIAN Gender Identity Not on file Sexual [...] R/O COVID-19 10/21/2020 10/21/2020 10/28/2021 9:17 PM MOLD REPAIR TECHNICIAN documented as of this encounter Care Teams Eyeglass Fitter Relationship Specialty Start Date End Date Jean Gibbons MD [address] [place] [address] PCP - General Family Practice 04/09/18 documented as of this encounter
--- OUTSIDE RECORDS SUMMARY | 2025-07-11 16:55 | XMS_ITS | Encounter Summary ---
Author Organization [facility] Address [address] [place] [address] Care Team Providers Care Commercial Carpenter Name Role Phone Jean Gibbons MD Primary Care Provider +1 [phone] Encounter Details Date Type Department Care Team (Latest Contact Info) Description 07/08/1998 Outpatient Historical [facility] Endocrinology-[facility] [place] [address] [place] [address] Mine Tucker MD [address] [place], [place] [address] Nonspecific abnormal results of other endocrine function study (Primary Dx) Social History Tobacco Use Types Packs/Day Years Used Date Smoking Tobacco: Never Assessed Comments Unknown Sex and Gender Information Value Date Recorded Sex Assigned at Not on file Legal Sex Female 4:08 AM HARDWOOD FINISHER Gender Identity Not on file Sexual Orientation Not on file documented as of this encounter Plan of Treatment Not on file documented as of this encounter Visit Diagnoses Diagnosis Nonspecific abnormal results of other endocrine function study- Primary documented in this encounter Additional Health Concerns Infection Onset Date Last Indicated Resolved Time R/O COVID-19 10/21/2020 10/21/2020 10/28/2021 9:17 PM HARDWOOD FINISHER documented as of this encounter Care Teams Commercial Carpenter Relationship Specialty Start Date End Date Jean Gibbons MD [address] [place] [address] PCP - General Family Practice 04/09/18 documented as of this encounter
--- OUTSIDE RECORDS SUMMARY | 2025-07-11 16:55 | XMS_ITS | Encounter Summary ---
Author Organization [facility] Address [address] [place] [address] Care Team Providers Care Honey Blender Name Role Phone Jean Gibbons MD Primary Care Provider [phone] -[phone] Encounter Details Date Type Department Care Team (Late st Contact Info) Description 03/16/2020 Ancillary Orders [facility] [address] [place] [address] Jean Gibbons MD [address] [place] [address] Abnormal mammogram Social History Tobacco Use Types Packs/Day Years Used Date Smoking Tobacco: Former Cigarettes Q uit: 08/12/1990 Smokeless Tobacco: Never Comments:quit in the Alcohol Use Standard Drinks/Week Comments No 0 (1 standard drink = 0.6 oz pur e alcohol) Comments No Sex and Gender Information Value Date Recorded Sex Assigned at Not on file Legal Sex Female 4:08 AM COMPUTER INFORMATION SYSTEMS PROFESSOR Gender Identity Not on file Sexual Orientation Not on file Occupation Industry Job Start Date Job End Date Not on file Not on file Not on file Not on file COVID-19 Exposure Response Date Recorded In the last month, have you been in contact with someone who was confirmed or suspected to have Coronavirus / COVID-19? No / Unsure 03/16/2020 9:13 AM CDT documented as of this encounter Plan of Treatment Not on file documented as of this encounter Visit Diagnoses Diagnosis Abnormal mammogram Abnormal mammogram, unspecified documented in this encounter Additional Health Concerns Infection Onset Date Last Indicated Resolved Time R/O COVID-19 10/21/2020 10/21/2020 10/28/2021 9:17 PM COMPUTER INFORMATION SYSTEMS PROFESSOR Assessment Noted Time PHQ-9 Depression Total Score: 1 01/24/20 19 10:00 AM CDT documented as of this encounter Care Teams Honey Blender Relationship Specialty Start Date End Date Jean Gibbons MD [address] [phone] PCP - General Family Practice 04/09/18 documented as of this encounter
--- OUTSIDE RECORDS SUMMARY | 2025-07-11 16:55 | XMS_ITS | Encounter Summary ---
Author Organization [facility] Address [address] [place] [address] Care Team Providers Care Risk Management Consultant Name Role Phone Jean Gibbons MD Primary Care Provider +1 -[phone] Encounter Details Date Type Department Care Team (Latest Contact Info) Description 01/31/2005 Outpatient Historical [facility] Medicine [place] [address] [address] Lesley Ortega, HEALTH CARE FACILITIES INSPECTOR [address] [place] [address] ACUTE URI NOS (Primary Dx); ACUTE PHARYNGITIS; GENERAL OSTEOARTHROSIS Social History Tobacco Use Types Packs/Day Years Used Date Smoking Tobacco: Never Assessed Comments Unknown Sex and Gender Information Value Date Recorded Sex Assigned at Not on file Legal Sex Female 4:08 AM BEVELING AND EDGING MACHINE OPERATOR Gender Identity Not on file Sexual Orientation Not on file documented as of this encounter Plan of Treatment Not on file documented as of this encounter Visit Diagnoses Diagnosis Acute upper respiratory infections of unspecified site- Primary Acute pharyngitis Generalized osteoarthrosis, involving multiple sites documented in this encounter Additional Health Concerns Infection Onset Date Last Indicated Resolved Time R/O COVID-19 10/21/2020 10/21/2020 10/28/2021 9:17 PM BEVELING AND EDGING MACHINE OPERATOR documented as of this encounter Care Teams Risk Management Consultant Relationship Specialty Start Date End Date Jean Gibbons MD [address] [facility] [address] [place] [phone] PCP - General Family Practice 04/09/18 documented as of this encounter
--- OUTSIDE RECORDS SUMMARY | 2025-07-11 16:55 | XMS_ITS | Encounter Summary ---
Author Organization [facility] Address [address] [place] [address] Care Team Providers Care Rpg Developer Name Role Phone Jean Gibbons MD Primary Care Provider +1 -[phone] Encounter Details Date Type Department Care Team (Latest Contact Info) Description 12/07/1999 Outpatient Historical [facility] Podiatry-[facility] [place] [address] [place] [address] David Bailey, DPM NO ADDRESS ON FILE Hallux valgus (Primary Dx) Social History Tobacco Use Types Packs/Day Years Used Date Smoking Tobacco: Never Assessed Comments Unknown Sex and Gender Information Value Date Recorded Sex Assigned at Not on file Legal Sex Female 4:08 AM SELLING SPECIALIST Gender Identity Not on file Sexual Orientation Not on file documented as of this encounter Plan of Treatment Not on file documented as of this encounter Visit Diagnoses Diagnosis Hallux valgus- Primary Hallux valgus (acquired) documented in this encounter Additional Health Concerns Infection Onset Date Last Indicated Resolved Time R/O COVID-19 10/21/2020 10/21/2020 10/28/2021 9:17 PM SELLING SPECIALIST documented as of this encounter Care Teams Rpg Developer Relationship Specialty Start Date End Date Jean Gibbons MD [address] [place] [address] PCP - General Family Practice 04/09/18 documented as of this encounter
--- OUTSIDE RECORDS SUMMARY | 2025-07-11 16:55 | XMS_ITS | Encounter Summary ---
Author Organization [facility] Address [address] [place] [address] Care Team Providers Care Limousine And Hearse Upholsterer Name Role Phone Jean Gibbons MD Primary Care Provider +1 -[phone] Encounter Details Date Type Department Care Team (Latest Contact Info) Description 07/19/2004 Outpatient Historical [facility] Medicine [place] [address] [address] Lesley Ortega, TRAVELING NURSE [address] [place] [address] PNEUMONIA, ORGANISM NOS (Primary Dx) Social History Tobacco Use Types Packs/Day Years Used Date Smoking Tobacco: Never Assessed Comments Unknown Sex and Gender Information Value Date Recorded Sex Assigned at Not on file Legal Sex Female 4:08 AM ACADEMIC DEAN Gender Identity Not on file Sexual Orientation Not on file documented as of this encounter Plan of Treatment Not on file documented as of this encounter Visit Diagnoses Diagnosis Pneumonia, organism unspecified(486)- Primary Pneumonia, organism unspecified documented in this encounter Additional Health Concerns Infection Onset Date Last Indicated Resolved Time R/O COVID-19 10/21/2020 10/21/2020 10/28/2021 9:17 PM ACADEMIC DEAN documented as of this encounter Care Teams Limousine And Hearse Upholsterer Relationship Specialty Start Date End Date Jean Gibbons MD [address] [phone] PCP - General Family Practice 04/09/18 documented as of this encounter
--- OUTSIDE RECORDS SUMMARY | 2025-07-11 16:55 | XMS_ITS | Encounter Summary ---
Author Organization [facility] Address [address] [place] [address] Care Team Providers Care Aircraft Lay Out Worker Name Role Phone Jean Gibbons MD Primary Care Provider +1 -[phone] Encounter Details Date Type Department Care Team (Latest Contact Info) Description 12/29/1999 Outpatient Historical [facility] Podiatry-[facility] [place] [address] [place] [address] David Bailey, DPM NO ADDRESS ON FILE Hallux valgus (Primary Dx) Social History Tobacco Use Types Packs/Day Years Used Date Smoking Tobacco: Never Assessed Comments Unknown Sex and Gender Information Value Date Recorded Sex Assigned at Not on file Legal Sex Female 4:08 AM RESOURCE CONSERVATION SPECIALIST Gender Identity Not on file Sexual Orientation Not on file documented as of this encounter Plan of Treatment Not on file documented as of this encounter Visit Diagnoses Diagnosis Hallux valgus- Primary Hallux valgus (acquired) documented in this encounter Additional Health Concerns Infection Onset Date Last Indicated Resolved Time R/O COVID-19 10/21/2020 10/21/2020 10/28/2021 9:17 PM RESOURCE CONSERVATION SPECIALIST documented as of this encounter Care Teams Aircraft Lay Out Worker Relationship Specialty Start Date End Date Jean Gibbons MD [address] [place] [address] PCP - General Family Practice 04/09/18 documented as of this encounter
--- OUTSIDE RECORDS SUMMARY | 2025-07-11 16:55 | XMS_ITS | Encounter Summary ---
Author Organization [facility] Address [address] [place] [address] Care Team Providers Care Ash Collector Name Role Phone Jean Gibbons MD Primary Care Provider +1 -[phone] Encounter Details Date Type Department Care Team (Latest Contact Info) Description 01/27/2000 Outpatient Historical [facility] Podiatry-[facility] [place] [address] [place] [address] David Bailey, DPM NO ADDRESS ON FILE Hallux valgus (Primary Dx) Social History Tobacco Use Types Packs/Day Years Used Date Smoking Tobacco: Never Assessed Comments Unknown Sex and Gender Information Value Date Recorded Sex Assigned at Not on file Legal Sex Female 4:08 AM VAMP STRAP IRONER Gender Identity Not on file Sexual Orientation Not on file documented as of this encounter Plan of Treatment Not on file documented as of this encounter Visit Diagnoses Diagnosis Hallux valgus- Primary Hallux valgus (acquired) documented in this encounter Additional Health Concerns Infection Onset Date Last Indicated Resolved Time R/O COVID-19 10/21/2020 10/21/2020 10/28/2021 9:17 PM VAMP STRAP IRONER documented as of this encounter Care Teams Ash Collector Relationship Specialty Start Date End Date Jean Gibbons MD [address] [place] [address] PCP - General Family Practice 04/09/18 documented as of this encounter
--- OUTSIDE RECORDS SUMMARY | 2025-07-11 16:55 | XMS_ITS | Encounter Summary ---
Author Organization [facility] Address [address] [place] [address] Care Team Providers Care Psychiatry Physician Name Role Phone Jean Gibbons MD Primary Care Provider +1 -[phone] Encounter Details Date Type Department Care Team (Latest Contact Info) Description 08/12/2004 Outpatient Historical [facility] Medicine [place] [address] [address] Neo Aceves MD [address] [address] Vaccine for influenza (Primary Dx) Social History Tobacco Use Types Packs/Day Years Used Date Smoking Tobacco: Never Assessed Comments Unknown Sex and Gender Information Value Date Recorded Sex Assigned at Not on file Legal Sex Female 4:08 AM CARD TAPE CONVERTER OPERATOR Gender Identity Not on file Sexual Orientation Not on file documented as of this encounter Plan of Treatment Not on file documented as of this encounter Visit Diagnoses Diagnosis Vaccine for influenza- Primary Need for prophylactic vaccination and inoculation against influenza documented in this encounter Additional Health Concerns Infection Onset Date Last Indicated Resolved Time R/O COVID-19 10/21/2020 10/21/2020 10/28/2021 9:17 PM CARD TAPE CONVERTER OPERATOR documented as of this encounter Care Teams Psychiatry Physician Relationship Specialty Start Date End Date Jean Gibbons MD [address] [phone] PCP - General Family Practice 04/09/18 documented as of this encounter
--- OUTSIDE RECORDS SUMMARY | 2025-07-11 16:55 | XMS_ITS | Encounter Summary ---
Author Organization [facility] Address [address] [place] [address] Care Team Providers Care Custodian Blood Bank Name Role Phone Jean Gibbons MD Primary Care Provider +1 -[phone] Encounter Details Date Type Department Care Team (Latest Contact Info) Description 09/20/2004 Outpatient Historical [facility] Medicine [place] [address] [address] Ben Winters DO NO ADDRESS ON FILE BACKACHE NOS (Primary Dx); ASTHMA UNSPECIFIED; HYPERTENSION NOS Social History Tobacco Use Types Packs/Day Years Used Date Smoking Tobacco: Never Assessed Comments Unknown Sex and Gender Information Value Date Recorded Sex Assigned at Not on file Legal Sex Female 4:08 AM LEATHER SOFTENER Gender Identity Not on file Sexual Orientation Not on file documented as of this encounter Plan of Treatment Not on file documented as of this encounter Visit Diagnoses Diagnosis Backache, unspecified- Primary Unspecified asthma(493.90) Unspecified asthma Unspecified essential hypertension documented in this encounter Additional Health Concerns Infection Onset Date Last Indicated Resolved Time R/O COVID-19 10/21/2020 10/21/2020 10/28/2021 9:17 PM LEATHER SOFTENER documented as of this encounter Care Teams Custodian Blood Bank Relationship Specialty Start Date End Date Jean Gibbons MD [address] [address] PCP - General Family Practice 04/09/18 documented as of this encounter
--- OUTSIDE RECORDS SUMMARY | 2025-07-11 16:55 | XMS_ITS | Encounter Summary ---
Author Organization [facility] Address [address] [place]: [place] [address] Care Team Providers Care Color Maker Dyer Name Role Phone Jean Gibbons MD Primary Care Provider +1 [phone] Encounter Details Date Type Department Care Team (Late st Contact Info) Description 10/28/1999 Outpatient Historical Mine Tucker MD [address] [place], [place] [address] Social History Tobacco Use Types Packs/Day Years Used Date Smoking Tobacco: Never Assessed Comments Unknown Sex and Gender Information Value Date Recorded Sex Assigned at Not on file Legal Sex Female 4:08 AM WORM GROWER Gender Identity Not on file Sexual Orientation Not on file documented as of this encounter Plan of Treatment Not on file documented as of this encounter Visit Diagnoses Not on filedocumented in this encounter Additional Health Concerns Infection Onset Date Last Indicated Resolved Time R/O COVID-19 10/21/2020 10/21/2020 10/28/2021 9:17 PM WORM GROWER documented as of this encounter Care Teams Color Maker Dyer Relationship Specialty Start Date End Date Jean Gibbons MD [address] [place] [address] PCP - General Family Practice 04/09/18 documented as of this encounter
--- OUTSIDE RECORDS SUMMARY | 2025-07-11 16:55 | XMS_ITS | Encounter Summary ---
Author Organization [facility] Address [address] [place] [address] Care Team Providers Care Internal Audit Senior Manager Name Role Phone Jean Gibbons MD Primary Care Provider +1 [phone] Encounter Details Date Type Department Care Team (Latest Contact Info) Description 07/11/2004 Outpatient Historical [facility] Medicine [place] [address] [address] Deanna Parada NP NO ADDRESS ON FILE ACUTE BRONCHITIS (Primary Dx); ACUTE PHARYNGITIS; ASTHMA UNSPECIFIED Social History Tobacco Use Types Packs/Day Years Used Date Smoking Tobacco: Never Assessed Comments Unknown Sex and Gender Information Value Date Recorded Sex Assigned at Not on file Legal Sex Female 4:08 AM EDITOR SCHOOL PHOTOGRAPH Gender Identity Not on file Sexual Orientation Not on file documented as of this encounter Plan of Treatment Not on file documented as of this encounter Visit Diagnoses Diagnosis Acute bronchitis- Primary Acute pharyngitis Unspecified asthma(493.90) Unspecified asthma documented in this encounter Additional Health Concerns Infection Onset Date Last Indicated Resolved Time R/O COVID-19 10/21/2020 10/21/2020 10/28/2021 9:17 PM EDITOR SCHOOL PHOTOGRAPH documented as of this encounter Care Teams Internal Audit Senior Manager Relationship Specialty Start Date End Date Jean Gibbons MD [address] [address] PCP - General Family Practice 04/09/18 documented as of this encounter
--- OUTSIDE RECORDS SUMMARY | 2025-07-11 16:55 | XMS_ITS | Encounter Summary ---
Author Organization [facility] Address [address] [place] [address] Care Team Providers Care Acute Care Physical Therapist Name Role Phone Jean Gibbons MD Primary Care Provider +1 [phone] Encounter Details Date Type Department Care Team (Late st Contact Info) Description 08/31/1998 Outpatient Historical [facility] Neurology [address], [address] [place] [address] Nicolas Oviedo MD [address] [place] [address] Pain in limb (Primary Dx) Social History Tobacco Use Types Packs/Day Years Used Date Smoking Tobacco: Never Assessed Comments Unknown Sex and Gender Information Value Date Recorded Sex Assigned at Not on file Legal Sex Female 4:08 AM CLOTH INSPECTOR Gender Identity Not on file Sexual Orientation Not on file documented as of this encounter Plan of Treatment Not on file documented as of this encounter Visit Diagnoses Diagnosis Pain in limb- Primary Pain in soft tissues of limb documented in this encounter Additional Health Concerns Infection Onset Date Last Indicated Resolved Time R/O COVID-19 10/21/2020 10/21/2020 10/28/2021 9:17 PM CLOTH INSPECTOR documented as of this encounter Care Teams Acute Care Physical Therapist Relationship Specialty Start Date End Date Jean Gibbons MD [address] [place] [address] PCP - General Family Practice 04/09/18 documented as of this encounter
--- OUTSIDE RECORDS SUMMARY | 2025-07-11 16:55 | XMS_ITS | Encounter Summary ---
Author Organization [facility] Address [address] [place] [address] Care Team Providers Care Dot Net Developer Name Role Phone Jean Gibbons MD Primary Care Provider +1 [phone] Encounter Details Date Type Department Care Team (Latest Contact Info) Description 03/15/2005 Outpatient Historical [facility] Medicine [place] [address] [address] Ben Winters DO NO ADDRESS ON FILE BACKACHE NOS (Primary Dx); HYPERTENSION NOS; ANXIETY STATE NOS Social History Tobacco Use Types Packs/Day Years Used Date Smoking Tobacco: Never Assessed Comments Unknown Sex and Gender Information Value Date Recorded Sex Assigned at Not on file Legal Sex Female 4:08 AM VISUAL AND STOCK ASSOCIATE Gender Identity Not on file Sexual Orientation Not on file documented as of this encounter Plan of Treatment Not on file documented as of this encounter Visit Diagnoses Diagnosis Backache, unspecified- Primary Unspecified essential hypertension Anxiety state, unspecified documented in this encounter Additional Health Concerns Infection Onset Date Last Indicated Resolved Time R/O COVID-19 10/21/2020 10/21/2020 10/28/2021 9:17 PM VISUAL AND STOCK ASSOCIATE documented as of this encounter Care Teams Dot Net Developer Relationship Specialty Start Date End Date Jean Gibbons MD [address] [address] PCP - General Family Practice 04/09/18 documented as of this encounter
--- OUTSIDE RECORDS SUMMARY | 2025-07-11 16:55 | XMS_ITS | Encounter Summary ---
Author Organization [facility] Address [address] [place] [address] Care Team Providers Care Registered Nurse Cardiac Telemetry Name Role Phone Jean Gibbons MD Primary Care Provider +1 [phone] Encounter Details Date Type Department Care Team (Latest Contact Info) Description 01/17/2006 Outpatient Historical [facility] Medicine [place] [address] [address] Ben Winters DO NO ADDRESS ON FILE Open Wound of Foot (Primary Dx) Social History Tobacco Use Types Packs/Day Years Used Date Smoking Tobacco: Never Assessed Comments Unknown Sex and Gender Information Value Date Recorded Sex Assigned at Not on file Legal Sex Female 4:08 AM CONVEYOR INSTALLER Gender Identity Not on file Sexual Orientation Not on file documented as of this encounter Plan of Treatment Not on file documented as of this encounter Visit Diagnoses Diagnosis Open wound of foot except toe(s) alone, without mention of complication- Primary documented in this encounter Additional Health Concerns Infection Onset Date Last Indicated Resolved Time R/O COVID-19 10/21/2020 10/21/2020 10/28/2021 9:17 PM CONVEYOR INSTALLER documented as of this encounter Care Teams Registered Nurse Cardiac Telemetry Relationship Specialty Start Date End Date Jean Gibbons MD [address] [address] PCP - General Family Practice 04/09/18 documented as of this encounter
--- OUTSIDE RECORDS SUMMARY | 2025-07-11 16:55 | XMS_ITS | Encounter Summary ---
Author Organization [facility] Address [address] [place] [address] Care Team Providers Care Tube Machine Operator Name Role Phone Jean Gibbons MD Primary Care Provider [phone] [phone] Encounter Details Date Type Department Care Team (Late st Contact Info) Description 10/28/1999 Outpatient Historical [facility] Mine Tucker MD [address] [place] [address] Toxic uninodular goiter without mention of thyrotoxic crisis or storm (Primary Dx) Social History Tobacco Use Types Packs/Day Years Used Date Smoking Tobacco: Never Assessed Comments Unknown Sex and Gender Information Value Date Recorded Sex Assigned at Not on file Legal Sex Female 4:08 AM RAILROAD YARD WORKER Gender Identity Not on file Sexual Orientation Not on file documented as of this encounter Plan of Treatment Not on file documented as of this encounter Visit Diagnoses Diagnosis Toxic uninodular goiter without mention of thyrotoxic crisis or storm- Primary documented in this encounter Additional Health Concerns Infection Onset Date Last Indicated Resolved Time R/O COVID-19 10/21/2020 10/21/2020 10/28/2021 9:17 PM RAILROAD YARD WORKER documented as of this encounter Care Teams Tube Machine Operator Relationship Specialty Start Date End Date Jean Gibbons MD [address] [place] [address] PCP - General Family Practice 04/09/18 documented as of this encounter
--- OUTSIDE RECORDS SUMMARY | 2025-07-11 16:55 | XMS_ITS | Encounter Summary ---
Author Organization [facility] Address [address] [place] [address] Care Team Providers Care Agricultural Sales Representative Name Role Phone Jean Gibbons MD Primary Care Provider +1 [phone] Encounter Details Date Type Department Care Team (Late st Contact Info) Description 11/26/1998 Outpatient Historical [facility] Imaging Services[place] Gavino Diallo [address] [place] [address] Alberto Glass MD [address] [place] [address] Periostitis, without mention of osteomyelitis, unspecified site (CMS/HCC) (Primary Dx) Social History Tobacco Use Types Packs/Day Years Used Date Smoking Tobacco: Never Assessed Comments Unknown Sex and Gender Information Value Date Recorded Sex Assigned at Not on file Legal Sex Female 4:08 AM TELE MARKETING EXECUTIVE Gender Identity Not on file Sexual Orientation Not on file documented as of this encounter Plan of Treatment Not on file documented as of this encounter Visit Diagnoses Diagnosis Periostitis, without mention of osteomyelitis, unspecified site (CMS/HCC)- Primary Periostitis, without mention of osteomyelitis, unspecified site documented in this encounter Additional Health Concerns Infection Onset Date Last Indicated Resolved Time R/O COVID-19 10/21/2020 10/21/2020 10/28/2021 9:17 PM TELE MARKETING EXECUTIVE documented as of this encounter Care Teams Agricultural Sales Representative Relationship Specialty Start Date End Date Jean Gibbons MD [address] [place] [address] PCP - General Family Practice 04/09/18 documented as of this encounter
--- OUTSIDE RECORDS SUMMARY | 2025-07-11 16:55 | XMS_ITS | Encounter Summary ---
Author Organization [facility] Address [address] [place] [address] Care Team Providers Care Plant Electrical Engineer Name Role Phone Jean Gibbons MD Primary Care Provider +1 [phone] Encounter Details Date Type Department Care Team (Latest Contact Info) Description 05/14/2006 Outpatient Historical [facility] Medicine [place] [address] [address] Ben Winters DO NO ADDRESS ON FILE Unspecified Backache (Primary Dx); Anal or Rectal Pain; Internal Hemorrhoids without Mention of Complication; Screening for Malignant Neoplasm of the Rectum Social History Tobacco Use Types Packs/Day Years Used Date Smoking Tobacco: Never Assessed Comments Unknown Sex and Gender Information Value Date Recorded Sex Assigned at Not on file Legal Sex Female 4:08 AM NET SOFTWARE DEVELOPER Gender Identity Not on file Sexual Orientation Not on file documented as of this encounter Plan of Treatment Not on file documented as of this encounter Visit Diagnoses Diagnosis Backache, unspecified- Primary Anal or rectal pain Internal hemorrhoids without mention of complication Screening for malignant neoplasm of the rectum documented in this encounter Additional Health Concerns Infection Onset Date Last Indicated Resolved Time R/O COVID-19 10/21/2020 10/21/2020 10/28/2021 9:17 PM NET SOFTWARE DEVELOPER documented as of this encounter Care Teams Plant Electrical Engineer Relationship Specialty Start Date End Date Jean Gibbons MD [address] [address] PCP - General Family Practice 04/09/18 documented as of this encounter
--- OUTSIDE RECORDS SUMMARY | 2025-07-11 16:55 | XMS_ITS | Encounter Summary ---
Author Organization [facility] Address [address] [place] [address] Care Team Providers Care Cherry Dipper Name Role Phone Jean Gibbons MD Primary Care Provider +1 [phone] Encounter Details Date Type Department Care Team (Latest Contact Info) Description 07/03/2006 Outpatient Historical [facility] Medicine [place] [address] [address] Ben Winters DO NO ADDRESS ON FILE Unspecified Backache (Primary Dx); Unspecified Essential Hypertension; Generalized Osteoarthrosis, Involving Multiple Sites Social History Tobacco Use Types Packs/Day Years Used Date Smoking Tobacco: Never Assessed Comments Unknown Sex and Gender Information Value Date Recorded Sex Assigned at Not on file Legal Sex Female 4:08 AM DISPATCHER RADIOACTIVE WASTE DISPOSAL Gender Identity Not on file Sexual Orientation Not on file documented as of this encounter Plan of Treatment Not on file documented as of this encounter Visit Diagnoses Diagnosis Backache, unspecified- Primary Unspecified essential hypertension Generalized osteoarthrosis, involving multiple sites documented in this encounter Additional Health Concerns Infection Onset Date Last Indicated Resolved Time R/O COVID-19 10/21/2020 10/21/2020 10/28/2021 9:17 PM DISPATCHER RADIOACTIVE WASTE DISPOSAL documented as of this encounter Care Teams Cherry Dipper Relationship Specialty Start Date End Date Jean Gibbons MD [address] [address] PCP - General Family Practice 04/09/18 documented as of this encounter
--- OUTSIDE RECORDS SUMMARY | 2025-07-11 16:55 | XMS_ITS | Encounter Summary ---
Author Organization [facility] Address [address] [place] [address] Care Team Providers Care Restoration Officer Name Role Phone Jean Gibbons MD Primary Care Provider [phone] [phone] Encounter Details Date Type Department Care Team (Latest Contact Info) Description 09/13/2004 Outpatient Historical [facility] Medicine [place] [address] [address] Lesley Ortega, PAINTER PLATE [address] [place] [address] ACUTE URI NOS (Primary Dx) Social History Tobacco Use Types Packs/Day Years Used Date Smoking Tobacco: Never Assessed Comments Unknown Sex and Gender Information Value Date Recorded Sex Assigned at Not on file Legal Sex Female 4:08 AM TRUST VAULT CLERK Gender Identity Not on file Sexual Orientation Not on file documented as of this encounter Plan of Treatment Not on file documented as of this encounter Visit Diagnoses Diagnosis Acute upper respiratory infections of unspecified site- Primary documented in this encounter Additional Health Concerns Infection Onset Date Last Indicated Resolved Time R/O COVID-19 10/21/2020 10/21/2020 10/28/2021 9:17 PM TRUST VAULT CLERK documented as of this encounter Care Teams Restoration Officer Relationship Specialty Start Date End Date Jean Gibbons MD [address] [address] PCP - General Family Practice 04/09/18 documented as of this encounter
--- OUTSIDE RECORDS SUMMARY | 2025-07-11 16:55 | XMS_ITS | Encounter Summary ---
Author Organization [facility] Address [address] [place] [address] Care Team Providers Care Factory Engineer Name Role Phone Jean Gibbons MD Primary Care Provider [phone] [phone] Encounter Details Date Type Department Care Team (Late st Contact Info) Description 09/10/1998 Outpatient Historical [facility] Neurology [address] [place] [address] Nicolas Oviedo MD [address] [place] [address] Carpal tunnel syndrome (Primary Dx) Social History Tobacco Use Types Packs/Day Years Used Date Smoking Tobacco: Never Assessed Comments Unknown Sex and Gender Information Value Date Recorded Sex Assigned at Not on file Legal Sex Female 4:08 AM HARNESS CUTTER Gender Identity Not on file Sexual Orientation Not on file documented as of this encounter Plan of Treatment Not on file documented as of this encounter Visit Diagnoses Diagnosis Carpal tunnel syndrome- Primary documented in this encounter Additional Health Concerns Infection Onset Date Last Indicated Resolved Time R/O COVID-19 10/21/2020 10/21/2020 10/28/2021 9:17 PM HARNESS CUTTER documented as of this encounter Care Teams Factory Engineer Relationship Specialty Start Date End Date Jean Gibbons MD [address] [place] [address] PCP - General Family Practice 04/09/18 documented as of this encounter
--- OUTSIDE RECORDS SUMMARY | 2025-07-11 16:55 | XMS_ITS | Encounter Summary ---
Author Organization [facility] Address [address] [place] [address] Care Team Providers Care Slab Stripper Name Role Phone Jean Gibbons MD Primary Care Provider +1 [phone] Encounter Details Date Type Department Care Team (Latest Contact Info) Description 09/22/1999 Outpatient Historical [facility] [place] [address] [place] [address] David Bailey, DPM NO ADDRESS ON FILE Hallux valgus (Primary Dx) Social History Tobacco Use Types Packs/Day Years Used Date Smoking Tobacco: Never Assessed Comments Unknown Sex and Gender Information Value Date Recorded Sex Assigned at Not on file Legal Sex Female 4:08 AM SET ILLUSTRATOR Gender Identity Not on file Sexual Orientation Not on file documented as of this encounter Plan of Treatment Not on file documented as of this encounter Visit Diagnoses Diagnosis Hallux valgus- Primary Hallux valgus (acquired) documented in this encounter Additional Health Concerns Infection Onset Date Last Indicated Resolved Time R/O COVID-19 10/21/2020 10/21/2020 10/28/2021 9:17 PM SET ILLUSTRATOR documented as of this encounter Care Teams Slab Stripper Relationship Specialty Start Date End Date Jean Gibbons MD [address] [place] [address] PCP - General Family Practice 04/09/18 documented as of this encounter
--- OUTSIDE RECORDS SUMMARY | 2025-07-11 16:55 | XMS_ITS | Encounter Summary ---
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
--- OUTSIDE RECORDS SUMMARY | 2025-07-11 16:55 | XMS_ITS | Encounter Summary ---
Author Organization [facility] Address [address] [place] [address] Care Team Providers Care Sexual Assault Social Worker Name Role Phone Jean Gibbons MD Primary Care Provider +1 -[phone] Encounter Details Date Type Department Care Team (Latest Contact Info) Description 06/03/1999 Outpatient Historical [facility] Endocrinology-[facility] [place] [address] [place] [address] Mine Tucker MD [address] [place] [address] Toxic uninodular goiter without mention of thyrotoxic crisis or storm (Primary Dx) Social History Tobacco Use Types Packs/Day Years Used Date Smoking Tobacco: Never Assessed Comments Unknown Sex and Gender Information Value Date Recorded Sex Assigned at Not on file Legal Sex Female 4:08 AM MICROSOFT BI ARCHITECT Gender Identity Not on file Sexual Orientation Not on file documented as of this encounter Plan of Treatment Not on file documented as of this encounter Visit Diagnoses Diagnosis Toxic uninodular goiter without mention of thyrotoxic crisis or storm- Primary documented in this encounter Additional Health Concerns Infection Onset Date Last Indicated Resolved Time R/O COVID-19 10/21/2020 10/21/2020 10/28/2021 9:17 PM MICROSOFT BI ARCHITECT documented as of this encounter Care Teams Sexual Assault Social Worker Relationship Specialty Start Date End Date Jean Gibbons MD [address] [place] [address] PCP - General Family Practice 04/09/18 documented as of this encounter
--- NOTE | 2025-07-11 18:09 | XRR_ITS ---
PROCEDURE INFORMATION: Exam: XR Left Knee Exam date and time: 07/11/2025 6:15 PM Age: 80 years old Clinical indication: C/O left knee pain. No injury. ; Additional info: pain behind kneecap TECHNIQUE: Imaging protocol: Radiologic exam of the left knee. Views: 3 views. COMPARISON: No relevant prior studies available. FINDINGS: Bones/joints: Moderate tricompartmental bony degenerative change. Soft tissues: Normal. XR/XR knee LT 3V* [id number] IMPRESSION: No definite acute fracture, subluxation, dislocation
--- NOTE | 2025-07-11 18:10 | W.ED.EXTPRO ---
HPI - Extremity Problem General: Chief complaint: Extremity Problem,Nontraumatic Stated complaint: left leg pain Time Seen by Provider: 07/11/25 17:01 Source: patient Mode of arrival: ambulatory Limitations: no limitations History of Present Illness: Patient is an 80-year-old female who presents the emergency department complaining of left knee pain. She states that it has been bothering her chronically, but today she was sitting and noticed that it was painful. States that she is pain-free at this time, just has minor pain when she puts weight on it or stands and walks. No history of blood clots, no pain in her calf, no redness or coolness to the left lower extremity. She has chronic bilateral edema. Vitals are stable, she has no other concerns at this time and is already asking when she can leave. MD Complaint: joint pain Onset (ago): unknown ( a long time ) Pain Consistency: now resolved Location: left and knee Radiation: proximal Associated symptoms: Deny chest pain, fever(s) or rash Related Data Home Medications ?Medication ?Instructions ?Recorded ?Confirmed fluticasone propionate 50 2 spray intranasal DAILY 08/24/20 06/23/25 mcg/actuation nasal spray,suspension (Flonase Allergy Relief) hydroxyzine HCl 25 mg tablet 25 mg PO TID PRN Anxiety 08/24/20 06/23/25 propylthiouracil 50 mg tablet 50 mg PO TID 08/24/20 06/23/25 tramadol 50 mg tablet 50 mg PO Q8H PRN Pain 08/24/20 06/23/25 multivitamin 1 tab PO DAILY 11/07/21 06/23/25 bupropion HCl 150 mg 24 hr tablet, 150 mg PO BID 04/30/24 06/23/25 extended release betamethasone, augmented 0.05 % 1 applic topical BID PRN Skin 04/04/25 06/23/25 topical ointment Irritation cranberry fruit 200 mg-dandelion 1 cap PO DAILY 04/04/25 06/23/25 50 mg-goldenseal 20 mg-herbs capsule (Urinary Cranberry Blend) losartan 100 mg tablet 100 mg PO DAILY 04/04/25 06/23/25 ondansetron 4 mg disintegrating 4 mg PO Q8H PRN Nausea And Vomiting 04/04/25 06/23/25 tablet vitamin B complex 1 tab PO DAILY 04/04/25 06/23/25 Previous Rx's ?Medication ?Instructions ?Recorded custom inserts #1 ea 02/22/24 metoprolol tartrate 50 mg tablet 50 mg PO BID #180 tabs 10/27/24 potassium chloride 8 mEq 8 meq PO DAILY #90 tabs 06/29/25 tablet,extended release (Klor-Con) amiodarone 200 mg tablet See Rx Instructions .Route 07/02/25 .COMPLEX #180 tabs furosemide 20 mg tablet (Lasix) 20 mg PO DAILY #90 tabs 07/03/25 Allergies Allergy/AdvReac Type Severity Reaction Status Date / Time Alpha-Gal Allergy Unknown Verified 06/23/25 08:05 ([id number],3-Gala citalopram (From Celexa) Allergy NA Verified 06/23/25 08:05 clarithromycin Allergy NA Verified 06/23/25 08:05 clindamycin Allergy NA Verified 06/23/25 08:05 doxepin Allergy NA Verified 06/23/25 08:05 hydrocodone Allergy NA Verified 06/23/25 08:05 ibuprofen Allergy NA Verified 06/23/25 08:05 levofloxacin Allergy NA Verified 06/23/25 08:05 lisinopril Allergy NA Verified 06/23/25 08:05 naproxen (From Aleve) Allergy NA Verified 06/23/25 08:05 Penicillins Allergy NA Verified 06/23/25 08:05 pseudoephedrine Allergy NA Verified 06/23/25 08:05 red dye Allergy NA Verified 06/23/25 08:05 Sulfa (Sulfonamide Allergy NA Verified 06/23/25 08:05 Antibiotics) venlafaxine Allergy NA Verified 06/23/25 08:05 Review of Systems General: Reports: 10 or more systems reviewed and unremarkable except in HPI and below Const: Denies: fever(s) or chills Card: Denies: chest pain Resp: Denies: dyspnea or productive cough GI: Denies: abdominal pain, nausea, vomiting or diarrhea : Denies: flank pain Musc: Reports: extremity pain (LLE) and joint pain (left knee); Denies: neck pain, back pain, extremity swelling, joint swelling, joint redness, joint warmth, limited range of motion or muscle weakness Skin/Breast: Denies: rash Neuro: Denies: headache(s), numbness in extremities or weakness in extremities PFSH ED PFSH: Medical History No pertinent past medical history NEGHX:DM,DVT/PE PCP: Shai New and Amberly Lima Anxiety Hypothyroidism Family hx of colon cancer Atrial fibrillation Heart failure with reduced ejection fraction Hyperlipidemia COPD (chronic obstructive pulmonary disease) HTN (hypertension) Recurrent UTI Surgical History Hx of hysterectomy (~1985) 1985 INOCENCIO, BSO performed by Dr. Gonzalez Due to bleeding and cervical polyps S/P appendectomy S/P sinus surgery S/P cataract surgery S/P tonsillectomy S/P bunionectomy S/P cholecystectomy S/P shoulder surgery Family History Mother , 82 Breast cancer dx age later in life Denies family history of Colon cancer Ovarian cancer Diabetes Heart disease Hypercholesteremia Hypertension Uterine cancer Thyroid disease Stroke Social History Smoking and tobacco/nicotine status: former use of tobacco/nicotine Physical Exam Const: COMMON NORMALS: no acute distress, patient oriented x3, no limitations, healthy appearing, alert and well nourished HENMT: COMMON NORMALS: normocephalic and atraumatic HEAD & SCALP: normocephalic and atraumatic Neck/C-Spine: COMMON NORMALS: full ROM, supple and no meningeal signs Resp: COMMON NORMALS: normal respiratory effort, No use of accessory muscles and clear to auscultation bilaterally AUSCULTATION: clear to auscultation bilaterally Cardio: COMMON NORMALS: regular rate and regular rhythm RATE: regular rate RHYTHM: regular rhythm Extremity: NARRATIVE EXTREMITY EXAM: 2+ pitting edema bilaterally to bilateral lower extremities. Left knee nontender to palpation, there is no unilateral swelling of the left knee. No tenderness in the popliteal space, no palpable cord. No tenderness in her calf, distal pulses palpable. No coolness or cyanosis of the left lower extremity. Full range of motion at the ankle, hip, and knee. Strength are intact. Neuro: COMMON NORMALS: patient oriented x3, moves all extremities, no focal motor deficits and no sensory deficits noted SENSORIUM/ORIENTATION: Yes alert MENINGEAL SIGNS: Yes no meningeal signs Skin: COMMON NORMALS: no rashes or lesions noted GENERAL SKIN EXAM: no rashes or lesions noted Course Vital Signs: Vital signs: Vital Signs Temperature 97.7 F 07/11/25 16:43 Pulse Rate 59 L 07/11/25 19:16 Respiratory Rate 16 07/11/25 19:16 Blood Pressure 160/63 07/11/25 19:16 Pulse Oximetry 100 07/11/25 19:16 Oxygen Delivery Me thod Room Air 07/11/25 16:43 MDM - Extremity (Nontraumatic) Medical Decision Making Patient presented with acute on chronic left knee pain, which she was asymptomatic at my time of examination. There is no concern for DVT on exam, knee joint do not appear infected and there is no signs of acute trauma. The x-ray was reassuring, no acute findings and no need for further workup in the ED. She will be discharged home at this time. Lab Data Radiology Impressions Knee X-Ray 07/11/25 18:09 IMPRESSION: No definite acute fracture, subluxation, dislocation All radiology interpretation(s) finalized by discharge Discharge Plan Discharge Patient Disposition: Home Clinical Impression: Chronic pain of left knee Condition: Stable Prescriptions: No Action multivitamin Tablet 1 tab PO DAILY propylthiouracil 50 mg tablet 50 mg PO TID tramadol 50 mg tablet 50 mg PO Q8H PRN (Reason: Pain) hydroxyzine HCl 25 mg tablet 25 mg PO TID PRN (Reason: Anxiety) fluticasone propionate [Flonase Allergy Relief] 50 mcg/actuation spray,suspension 2 spray INTRANASAL DAILY Rx Instructions: administer into each nostril bupropion HCl 150 mg tablet extended release 24 hr 150 mg PO BID (DME) custom inserts See Rx Instructions .Route .MEDSUPPLY Qty: 1 0RF Rx Instructions: As directed metoprolol tartrate 50 mg tablet 50 mg PO BID Qty: 180 3RF potassium chloride [Klor-Con 8] 8 mEq tablet extended release 8 meq PO DAILY Qty: 90 3RF amiodarone 200 mg tablet See Rx Instructions .ROUTE .COMPLEX Qty: 180 3RF Dose Instruction: Take 1 tablet by mouth once daily Rx Instructions: Take 1 tablet by mouth once daily furosemide [Lasix] 20 mg tablet 20 mg PO DAILY Qty: 90 0RF vitamin B complex Tablet 1 tab PO DAILY ondansetron 4 mg tablet,disintegrating 4 mg PO Q8H PRN (Reason: Nausea And Vomiting) losartan 100 mg tablet 100 mg PO DAILY Urinary Cranberry Blend 200-50-20 mg Capsule 1 cap PO DAILY betamethasone, augmented 0.05 % ointment 1 applic topical BID PRN (Reason: Skin Irritation) Discharge Orders: Discharge ED (Routine); Ordered 07/11/25 Ordered By: Giovani Howell Referrals: Jean Gibbons [Primary Care Provider, Family Practice] Patient Instructions: Patient Portal & Leobardo Instructions Activity Restrictions/Additional Instructions: Knee Pain Discharge Instructions Discharge Instructions: Acute on Chronic Left Knee Pain Diagnosis and Summary: 80-year-old female presenting with acute on chronic left knee pain. X-ray was normal; physical exam showed no evidence of deep vein thrombosis or acute injury. No signs of infection, fracture, or mechanical instability. Most likely etiology is osteoarthritis or non-specific chronic knee pain, given age and clinical context. Immediate Management: - Activity: Encourage continued gentle ambulation and avoidance of prolonged immobility. There is no indication for strict rest; maintaining activity is important for joint health and overall function. - Exercise Therapy: Recommend initiation or continuation of a structured, low-impact exercise program (e.g., walking, cycling, aquatic therapy, or physical therapy-guided strengthening and balance exercises). Supervised, individualized exercise is preferred for optimal pain reduction and functional improvement. - If feasible, referral to physical therapy is advised for personalized assessment and program development. - Weight Management: If overweight (BMI >25 kg/m?), gradual weight loss (5?10%) is associated with reduced pain and improved function. - Patient Education: Written information regarding knee osteoarthritis, pain management strategies, and self-care should be provided. Education alone has demonstrated modest pain reduction and improved self-efficacy. Pharmacologic Management: - Topical NSAIDs (e.g., diclofenac gel) may be used for symptomatic relief, as they are as effective as oral analgesics for pain and have a superior safety profile in older adults. - Apply as directed to the affected knee, typically up to four times daily. Monitor for local skin reactions. - Acetaminophen may be considered for mild pain, but evidence for efficacy is limited compared to NSAIDs. - Oral NSAIDs should be reserved for cases where topical agents are ineffective or impractical, and only after assessing gastrointestinal, renal, and cardiovascular risks. If used, co-prescription of a proton-pump inhibitor is recommended. - Opioids are not recommended except in refractory cases where all other options have failed and surgery is not appropriate. Adjuncts and Other Interventions: - Knee Braces: Soft knee braces may provide additional pain relief when combined with exercise therapy, but should not replace physical therapy.[1] - Foot Orthoses: Consider for anterior knee pain or patellofemoral syndrome. - Intra-articular corticosteroid injections may be considered for short-term relief in cases of significant pain unresponsive to first-line measures. - Glucosamine/chondroitin supplements are not recommended due to lack of efficacy. Red Flags and When to Seek Immediate Care: - New or worsening swelling, redness, warmth, or fever (concern for infection) - Inability to bear weight, severe pain, or mechanical locking/catching - Sudden onset of calf pain or swelling (concern for DVT) Follow-Up: - Schedule follow-up with primary care provider within 1?2 weeks for reassessment and to coordinate ongoing management, including physical therapy referral if not already arranged. - Ongoing monitoring of pain, function, medication side effects, and adherence to exercise/weight management is recommended. Summary of Evidence-Based Recommendations: - First-line: Exercise therapy, weight management, patient education, topical NSAIDs - Escalation: Oral NSAIDs (with caution), intra-articular corticosteroids, physical therapy referral - Surgery is reserved for end-stage disease with functional limitation refractory to conservative management Patient Education Materials Provided: - Written handout on knee osteoarthritis and self-management strategies Contact Information: - For urgent concerns, contact clinic or present to emergency department. Print Language: Pakistani Coding Level of Care Code ED Arranging Funeral Director for Alyson Dee
[2025-07-11 19:16] VITALS: BP 160/63; PULSE 59; RESP 16; O2SAT 100
--- OUTSIDE RECORDS SUMMARY | 2025-08-15 19:00 | XMS_ITS | Clinical Summary ---
Author Organization Unknown Care Team Providers Care Piece Marker [employer] Name Role Phone ANNA TOLLIVER, CHERELLE Unavailable Unavailable BELIA PT, VALORIE Unavailable Unavailable ROLAND SAWYER, TATYANA Unavailable Unavailable Payers Payer Name Policy Type Policy Number Effective Date Expira tion Date MEDICARE - S - PDGM [id number] Problems Condition Name Condition Details Condition Category Status Onset Date Resolution Date Last Treatment Date Treating Clinician Comments ANEMIA, UNSPECIFIED Active 06-18 00:00: 00 HYPERTENSIVE HEART DISEASE WITH HEART FAILURE Active 11-12 00:00: 00 CHRONIC SYSTOLIC (CONGESTIVE) HEART FAILURE Active 11-12 00:00: 00 UNSPECIFIED ATRIAL FIBRILLATION Active 11-12 00:00: 00 INFRARENAL ABDOMINAL AORTIC ANEURYSM, WITHOUT RUPTURE Active 11-12 00:00: 00 ANXIETY DISORDER, UNSPECIFIED Active 11-12 00:00: 00 DEPRESSION, UNSPECIFIED Active 11-12 00:00: 00 HYPOTHYROIDI SM, UNSPECIFIED Active 11-12 00:00: 00 SPONDYLOSIS, UNSPECIFIED Active 11-12 00:00: 00 Irritable bowel syndrome, unspecified Active 11-12 00:00: 00 UNSPECIFIED TMJ JOINT DISORDER, UNSPECIFIED SIDE Active 11-12 00:00: 00 HISTORY OF FALLING Active 11-12 00:00: 00 Allergies, Adverse Reactions, Alerts Allergy Name Allergy Type Status Severity Reaction(s) Onset Date Inactive Date Treating Clinician Comments SULFA (SULFONAMIDE ANTIBIOTICS) Propensity to adverse reactions Active 06-22 05:40: 34 CITALOPRAM Propensity to adverse reactions Active 06-22 05:40: 42 CLARITHROMYC IN Propensity to adverse reactions Active 06-22 05:40: 52 CLINDAMYCIN HCL Propensity to adverse reactions Active 06-22 05:41: 03 DOXEPIN Propensity to adverse reactions Active 06-22 05:41: 13 HYDROCODONE Propensity to adverse reactions Active 06-22 05:41: 24 IBUPROFEN Propensity to adverse reactions Active 06-22 05:41: 42 LEVOFLOXACIN HYDRATE Propensity to adverse reactions Active 06-22 05:41: 52 LISINOPRIL Propensity to adverse reactions Active 06-22 05:42: 02 PENICILLIN Propensity to adverse reactions Active 06-22 05:42: 10 PSEUDOEPHEDR INE Propensity to adverse reactions Active 06-22 05:42: 57 VENLAFAXINE Propensity to adverse reactions Active 06-22 05:43: 10 ATORVASTATIN Propensity to adverse reactions Active 06-22 05:43: 17 NAPROXEN SODIUM Propensity to adverse reactions Active 06-22 05:43: 28 OXYBUTYNIN Propensity to adverse reactions Active 06-22 05:43: 36 RED DYE Propensity to adverse reactions Active 06-22 05:43: 45 Medications Ordered Medication Name Filled Medication Name Start Date Stop Date Current Medication? Ordering Clinician Indication Dosage Frequency Signature (SIG) Comments Components amiodarone 200 mg tablet 06-18 00:00: 00 Yes [id number] 1 tablet DAILY 1 tablet DAILY (route: oral) Med Classific ation: Cardiovas cular Therapy Agents B-Complex tablet 06-18 00:00: 00 Yes [id number] 1 tablet DAILY 1 tablet DAILY (route: oral) Med Classific ation: Electroly te Balance-N utritiona l Products bupropion HCl SR 150 mg tablet,12 hr sustained-r elease 06-18 00:00: 00 Yes [id number] 1 tablet 2 TIMES DAILY 1 tablet 2 TIMES DAILY (route: oral) Med Classific ation: Central Nervous System Agents Fish Oil 1,200 mg (144 mg-216 mg) capsule 06-18 00:00: 00 Yes [id number] 2 capsule DAILY 2 capsule DAILY (route: oral) Med Classific ation: Cardiovas cular Therapy Agents furosemide 20 mg tablet 06-18 00:00: 00 Yes [id number] 1 tablet DAILY 1 tablet DAILY (route: oral) Med Classific ation: Cardiovas cular Therapy Agents hydroxyzine HCl 25 mg tablet 06-18 00:00: 00 Yes [id number] 1 tablet 3 TIMES DAILY 1 tablet 3 TIMES DAILY (route: oral) Med Classific ation: Central Nervous System Agents losartan 50 mg tablet 06-18 00:00: 00 Yes [id number] 1 tablet DAILY 1 tablet DAILY (route: oral) Med Classific ation: Cardiovas cular Therapy Agents metoprolol tartrate 50 mg tablet 06-18 00:00: 00 Yes [id number] 1 tablet 2 TIMES DAILY 1 tablet 2 TIMES DAILY (route: oral) Med Classific ation: Cardiovas cular Therapy Agents milk thistle seed extract 250 mg capsule 06-18 00:00: 00 Yes [id number] 1 capsule DAILY 1 capsule DAILY (route: oral) Med Classific ation: Alternati ve Therapy potassium chloride ER 8 mEq capsule,ext ended release 06-18 00:00: 00 Yes [id number] 1 capsule DAILY 1 capsule DAILY (route: oral) Med Classific ation: Electroly te Balance-N utritiona l Products red yeast rice 600 mg capsule 06-18 00:00: 00 Yes [id number] 1 capsule DAILY 1 capsule DAILY (route: oral) Med Classific ation: Alternati ve Therapy tramadol 50 mg tablet 06-18 00:00: 00 Yes [id number] 1 tablet EVERY 8 HOURS 1 tablet EVERY 8 HOURS (route: oral) Med Classific ation: Analgesic , Anti-infl ammatory or Antipyret ic Vital Signs Vital Name Observation Time Observation Value Commen ts Temperature 2025-07-09 10:57:00.000 97.3 [degF] Temperature 2025-07-07 14:13:00.000 97.3 [degF] Temperature 2025-07-07 09:23:00.000 97.9 [degF] Temperature 2025-07-03 13:21:00.000 98 [degF] Temperature 2025-07-02 10:35:00.000 97 [degF] Temperature 2025-06-30 12:06:00.000 97.6 [degF] Temperature 2025-06-25 13:23:00.000 97.6 [degF] Temperature 2025-06-18 16:11:00.000 97.6 [degF] BMI (%) 2025-06-18 16:11:00.000 21 kg/m2 Height 2025-06-18 16:11:00.000 66 [in_us] Pulse 2025-07-09 10:57:00.000 60 /min Pulse 2025-07-07 14:13:00.000 60 /min Pulse 2025-07-07 09:23:00.000 60 /min Pulse 2025-07-03 13:26:00.000 60 /min Pulse 2025-07-02 10:35:00.000 63 /min Pulse 2025-06-30 12:06:00.000 62 /min Pulse 2025-06-25 13:23:00.000 60 /min Pulse 2025-06-18 16:11:00.000 59 /min O2 Saturation (%) 2025-07-09 10:57:00.000 95 % O2 Saturation (%) 2025-07-07 14:13:00.000 98 % O2 Saturation (%) 2025-07-07 09:23:00.000 96 % O2 Saturation (%) 2025-07-03 13:21:00.000 97 % O2 Saturation (%) 2025-07-02 10:35:00.000 97 % O2 Saturation (%) 2025-06-30 12:06:00.000 98 % O2 Saturation (%) 2025-06-25 13:23:00.000 97 % O2 Saturation (%) 2025-06-18 16:11:00.000 95 % Respirations 2025-07-09 10:57:00.000 18 /min Respirations 2025-07-07 14:13:00.000 18 /min Respirations 2025-07-07 09:23:00.000 18 /min Respirations 2025-07-03 13:21:00.000 18 /min Respirations 2025-07-02 10:35:00.000 18 /min Respirations 2025-06-30 12:06:00.000 18 /min Respirations 2025-06-25 13:23:00.000 18 /min Respirations 2025-06-18 16:11:00.000 18 /min Weight (lbs) 2025-06-18 16:11:00.000 131 [lb_av] Systolic Blood Pressure 2025-07-09 10:57:00.000 170 mm [Hg] Systolic Blood Pressure 2025-07-07 14:13:00.000 160 mm [Hg] Systolic Blood Pressure 2025-07-07 09:23:00.000 170 mm [Hg] Systolic Blood Pressure 2025-07-03 13:31:00.000 120 mm [Hg] Systolic Blood Pressure 2025-07-02 10:35:00.000 152 mm [Hg] Systolic Blood Pressure 2025-06-30 12:06:00.000 132 mm [Hg] Systolic Blood Pressure 2025-06-25 13:23:00.000 130 mm [Hg] Systolic Blood Pressure 2025-06-18 16:11:00.000 136 mm [Hg] Diastolic Blood Pressure 2025-07-09 10:57:00.000 73 mm [Hg] Diastolic Blood Pressure 2025-07-07 14:13:00.000 80 mm [Hg] Diastolic Blood Pressure 2025-07-07 09:23:00.000 83 mm [Hg] Diastolic Blood Pressure 2025-07-03 13:31:00.000 60 mm [Hg] Diastolic Blood Pressure 2025-07-02 10:35:00.000 84 mm [Hg] Diastolic Blood Pressure 2025-06-30 12:06:00.000 62 mm [Hg] Diastolic Blood Pressure 2025-06-25 13:23:00.000 60 mm [Hg] Diastolic Blood Pressure 2025-06-18 16:11:00.000 60 mm [Hg] Plan of Treatment Planned Activity Planned Date Details Comments Future Scheduled Test SKILLED NU RSE TO EVALUATE PATIENT, IDENTIFY PRIMARY AND CO-MORBID CONDITIONS CODED PER CODING GUIDELINES INCLUDING ANEMIA, UNSPECIFIED, HYPERTENSIVE HEART DISEASE WITH HEART FAILURE, CHRONIC SYSTOLIC (CONGESTIVE) HEART FAILURE, UNSPECIFIED ATRIAL FIBRILLATION, INFRARENAL ABDOMINAL AORTIC ANEURYSM, WITHOUT RUPTURE, ANXIETY DISORDER, UNSPECIFIED, AND DEVELOP PATIENT SPECIFIC PLAN OF CARE THAT INCLUDES PATIENT GOAL FOR HOME HEALTH. [code = SKILLED NURSE TO EVALUATE PATIENT, IDENTIFY PRIMARY AND CO-MORBID CONDITIONS CODED PER CODING GUIDELINES INCLUDING ANEMIA, UNSPECIFIED, HYPERTENSIVE HEART DISEASE WITH HEART FAILURE, CHRONIC SYSTOLIC (CONGESTIVE) HEART FAILURE, UNSPECIFIED ATRIAL FIBRILLATION, INFRARENAL ABDOMINAL AORTIC ANEURYSM, WITHOUT RUPTURE, ANXIETY DISORDER, UNSPECIFIED, AND DEVELOP PATIENT SPECIFIC PLAN OF CARE THAT INCLUDES PATIENT GOAL FOR HOME HEALTH.] Future Scheduled Test [facility] MAY ACCEPT ORDERS FROM THE FOLLOWING PHYSICIANS: ALL PROVIDERS INVOLVED IN CARE [code = HOME HEALTH AGENCY MAY ACCEPT ORDERS FROM THE FOLLOWING PHYSICIANS: ALL PROVIDERS INVOLVED IN CARE] Future Scheduled Test SKILLED NU RSE TO ASSESS ANXIETY AND PROVIDE ASSISTANCE TO PATIENT FOR UNDERSTANDING AND MANAGEMENT OF FEELINGS. [code = SKILLED NURSE TO ASSESS ANXIETY AND PROVIDE ASSISTANCE TO PATIENT FOR UNDERSTANDING AND MANAGEMENT OF FEELINGS.] Future Scheduled Test [facility] FOR ASSISTANCE WITH PERSONAL CARE AND ADL S SECONDARY TO FUNCTIONAL LIMITATIONS [code = HOME HEALTH AIDE SERVICES FOR ASSISTANCE WITH PERSONAL CARE AND ADL S SECONDARY TO FUNCTIONAL LIMITATIONS] Future Scheduled Test SKILLED NU RSE FOR O/A OF SELF-CARE DEFICITS AND TO PROVIDE TEACHING RELATED TO SAFE PROVISION OF ADLS. [code = SKILLED NURSE FOR O/A OF SELF-CARE DEFICITS AND TO PROVIDE TEACHING RELATED TO SAFE PROVISION OF ADLS.] Future Scheduled Test SKILLED NU RSE TO PROVIDE TEACHING ON SIGNS AND SYMPTOMS AND MANAGEMENT OF HYPERTENSION. [code = SKILLED NURSE TO PROVIDE TEACHING ON SIGNS AND SYMPTOMS AND MANAGEMENT OF HYPERTENSION.] Future Scheduled Test SKILLED NU RSE FOR O/A, TEACHING AND SELF-MANAGEMENT RELATED TO HEART FAILURE. INSTRUCT PATIENT/CAREGIVER ON SIGNS AND SYMPTOMS OF EXACERBATION TO REPORT AND IMPORTANCE OF OBTAINING AND RECORDING DAILY WEIGHT AND/OR MEASUREMENTS. SN OR TRAINED PATIENT/CAREGIVER TO OBTAIN WEIGHT DAILY AND WEIGHT GAIN OF 2 LBS OVERNIGHT OR 5 LBS IN 1 WEEK TO BE REPORTED TO PHYSICIAN/PROVIDER. IF UNABLE TO WEIGH PATIENT, SN OR TRAINED PATIENT/CAREGIVER TO OBTAIN MEASUREMENT OF RT CALF IN CM DAILY AND REPORT AN INCREASE OF 2 CM TO PHYSICIAN/PROVIDER. [code = SKILLED NURSE FOR O/A, TEACHING AND SELF-MANAGEMENT RELATED TO HEART FAILURE. INSTRUCT PATIENT/CAREGIVER ON SIGNS AND SYMPTOMS OF EXACERBATION TO REPORT AND IMPORTANCE OF OBTAINING AND RECORDING DAILY WEIGHT AND/OR MEASUREMENTS. SN OR TRAINED PATIENT/CAREGIVER TO OBTAIN WEIGHT DAILY AND WEIGHT GAIN OF 2 LBS OVERNIGHT OR 5 LBS IN 1 WEEK TO BE REPORTED TO PHYSICIAN/PROVIDER. IF UNABLE TO WEIGH PATIENT, SN OR TRAINED PATIENT/CAREGIVER TO OBTAIN MEASUREMENT OF RT CALF IN CM DAILY AND REPORT AN INCREASE OF 2 CM TO PHYSICIAN/PROVIDER.] Future Scheduled Test SKILLED NU RSE FOR O/A AND SKILLED TEACHING RELATED TO SIGNS AND SYMPTOMS AND MANAGEMENT OF ANEMIA. [code = SKILLED NURSE FOR O/A AND SKILLED TEACHING RELATED TO SIGNS AND SYMPTOMS AND MANAGEMENT OF ANEMIA.] Future Scheduled Test VIRTUAL SIT FREQUENCY: 12 PRN VIRTUAL VISITS MAY BE PERFORMED UTILIZING TELECOMMUNICATIONS SYSTEM TO OPTIMIZE SKILLED SERVICES FURNISHED ON THE PLAN OF CARE. SKILLED NURSE TO ESTABLISH SUPPORT MEASURES TO MINIMIZE RISK OF REHOSPITALIZATION, AND INSTRUCT PATIENT/CAREGIVER ON METHODS TO REDUCE AVOIDABLE HOSPITALIZATION. [code = VIRTUAL VISIT FREQUENCY: 12 PRN VIRTUAL VISITS MAY BE PERFORMED UTILIZING TELECOMMUNICATIONS SYSTEM TO OPTIMIZE SKILLED SERVICES FURNISHED ON THE PLAN OF CARE. SKILLED NURSE TO ESTABLISH SUPPORT MEASURES TO MINIMIZE RISK OF REHOSPITALIZATION, AND INSTRUCT PATIENT/CAREGIVER ON METHODS TO REDUCE AVOIDABLE HOSPITALIZATION.] Future Scheduled Test PATIENT EDWARDS S A RISK OF HOSPITALIZATION AND ED USE. SKILLED NURSE TO ESTABLISH SUPPORT MEASURES TO MINIMIZE RISK OF HOSPITALIZATION AND ED USE, AND INSTRUCT PATIENT/CAREGIVER ON METHODS TO REDUCE AVOIDABLE HOSPITALIZATION AND ED USE. [code = PATIENT HAS A RISK OF HOSPITALIZATION AND ED USE. SKILLED NURSE TO ESTABLISH SUPPORT MEASURES TO MINIMIZE RISK OF HOSPITALIZATION AND ED USE, AND INSTRUCT PATIENT/CAREGIVER ON METHODS TO REDUCE AVOIDABLE HOSPITALIZATION AND ED USE.] Future Scheduled Test SKILLED NU RSE TO PROVIDE INSTRUCTION TO PATIENT/CAREGIVER RELATED TO DISCHARGE PLANNING. [code = SKILLED NURSE TO PROVIDE INSTRUCTION TO PATIENT/CAREGIVER RELATED TO DISCHARGE PLANNING.] Future Scheduled Test SKILLED NU RSE TO PERFORM ENVIRONMENTAL SAFETY RISK ASSESSMENT AND FALL RISK ASSESSMENT AND PROVIDE INSTRUCTION TO IMPLEMENT ENVIRONMENTAL SAFETY AND FALL PREVENTION STRATEGIES THROUGHOUT THE CERTIFICATION PERIOD. SKILLED NURSE WILL MAINTAIN SITUATIONAL AWARENESS AND WILL NOTIFY CLINICAL LOOM CONTROL CHAIN BUILDER AND PHYSICIAN/PROVIDER WITH ANY CHANGE IN CONDITION. [code = SKILLED NURSE TO PERFORM ENVIRONMENTAL SAFETY RISK ASSESSMENT AND FALL RISK ASSESSMENT AND PROVIDE INSTRUCTION TO IMPLEMENT ENVIRONMENTAL SAFETY AND FALL PREVENTION STRATEGIES THROUGHOUT THE CERTIFICATION PERIOD. SKILLED NURSE WILL MAINTAIN SITUATIONAL AWARENESS AND WILL NOTIFY CLINICAL LOOM CONTROL CHAIN BUILDER AND PHYSICIAN/PROVIDER WITH ANY CHANGE IN CONDITION.] Future Scheduled Test SKILLED NU RSE FOR OBSERVATION AND ASSESSMENT OF PATIENT S PAIN LEVEL AND EFFECTIVENESS OF PAIN MANAGEMENT REGIMEN. SKILLED NURSE TO INSTRUCT PATIENT/CAREGIVER REGARDING PHARMACOLOGIC AND NON-PHARMACOLOGIC PAIN CONTROL MEASURES. SKILLED NURSE TO REPORT TO PHYSICIAN IF PAIN LEVEL IS OUTSIDE OF ESTABLISHED PARAMETERS. [code = SKILLED NURSE FOR OBSERVATION AND ASSESSMENT OF PATIENT S PAIN LEVEL AND EFFECTIVENESS OF PAIN MANAGEMENT REGIMEN. SKILLED NURSE TO INSTRUCT PATIENT/CAREGIVER REGARDING PHARMACOLOGIC AND NON-PHARMACOLOGIC PAIN CONTROL MEASURES. SKILLED NURSE TO REPORT TO PHYSICIAN IF PAIN LEVEL IS OUTSIDE OF ESTABLISHED PARAMETERS.] Future Scheduled Test SKILLED NU RSE TO ASSESS PATIENT'S SKIN INTEGRITY AND INSTRUCT PATIENT/CAREGIVER ON MEASURES TO PREVENT PRESSURE ULCERS. [code = SKILLED NURSE TO ASSESS PATIENT'S SKIN INTEGRITY AND INSTRUCT PATIENT/CAREGIVER ON MEASURES TO PREVENT PRESSURE ULCERS.] Future Scheduled Test SKILLED NU RSE TO PROVIDE ASSESSMENT AND TEACHING/REINFORCEMENT OF MANAGEMENT OF DEPRESSION INCLUDING DISEASE PROCESS, MEDICATION MANAGEMENT, COPING SKILLS AND IDENTIFY CHANGES ASSOCIATED WITH DEPRESSIVE DISORDERS FOR EARLY INTERVENTION. [code = SKILLED NURSE TO PROVIDE ASSESSMENT AND TEACHING/REINFORCEMENT OF MANAGEMENT OF DEPRESSION INCLUDING DISEASE PROCESS, MEDICATION MANAGEMENT, COPING SKILLS AND IDENTIFY CHANGES ASSOCIATED WITH DEPRESSIVE DISORDERS FOR EARLY INTERVENTION.] Future Scheduled Test SKILLED NU RSE TO REVIEW PATIENT MEDICATIONS (PRESCRIPTION/OTC). INSTRUCT PATIENT/CAREGIVER ON ALL MEDICATIONS INCLUDING PURPOSE, WHEN TO TAKE, IMPORTANCE OF MEDICATION ADHERENCE, MONITORING OF EFFECTIVENESS, ADVERSE DRUG REACTIONS, POSSIBLE SIDE EFFECTS, AND WHEN TO NOTIFY AGENCY OR PHYSICIAN/PROVIDER OF ANY CONCERNS. [code = SKILLED NURSE TO REVIEW PATIENT MEDICATIONS (PRESCRIPTION/OTC). INSTRUCT PATIENT/CAREGIVER ON ALL MEDICATIONS INCLUDING PURPOSE, WHEN TO TAKE, IMPORTANCE OF MEDICATION ADHERENCE, MONITORING OF EFFECTIVENESS, ADVERSE DRUG REACTIONS, POSSIBLE SIDE EFFECTS, AND WHEN TO NOTIFY AGENCY OR PHYSICIAN/PROVIDER OF ANY CONCERNS.] Goal Patient Goal - G ET STRONGER AVOID HOSPITALIZATION Goal Provider Goal - A PLAN OF CARE WILL BE ESTABLISHED THAT MEETS PATIENT'S ASSISTED NEEDS AND INCLUDES PATIENT GOAL FOR HOME HEALTH. Goal Provider Goal - ADDITIONAL ORDERS WILL BE RECEIVED FROM ALTERNATE PHYSICIAN IN A TIMELY MANNER THROUGHOUT THE CERTIFICATION PERIOD. Goal Provider Goal - SYMPTOMS OF ANXIETY ARE IDENTIFIED AND INTERVENTIONS INITIATED TO ENABLE PATIENT TO UNDERSTAND AND MANAGE FEELINGS THROUGHOUT EPISODE. Goal Provider Goal - PATIENT WILL RECEIVE PERSONAL CARE AND ADL ASSISTANCE. Goal Provider Goal - PATIENT/CAREGIVER WILL VERBALIZE/DEMONSTRATE UNDERSTANDING OF SAFE PROVISION OF ADLS BY THE END OF THE CERTIFICATION PERIOD. Goal Provider Goal - PATIENT/CAREGIVER WILL VERBALIZE SIGNS AND SYMPTOMS OF HYPERTENSION AND WILL BE ABLE TO DEMONSTRATE ABILITY TO MANAGE EXACERBATION BY END OF THE EPISODE. Goal Provider Goal - PATIENT/CAREGIVER WILL VERBALIZE/DEMONSTRATE KNOWLEDGE AND MANAGEMENT OF HEART FAILURE DISEASE PROCESS BY END OF EPISODE. Goal Provider Goal - PATIENT/CARGIVER WILL VERBALIZE UNDERSTANDING OF ANEMIA INCLUDING SIGNS AND SYMPTOMS, MANAGEMENT OF COMPLICATIONS, AND PRESCRIBED TREATMENT REGIMEN BY END OF EPISODE. Goal Provider Goal - PATIENT/CAREGIVER WILL UTILIZE VIRTUAL VISITS TO ACHIEVE GOALS OUTLINED ON THE PLAN OF CARE. PATIENT WILL HAVE SUPPORT MEASURES ESTABLISHED TO PREVENT HOSPITALIZATION AND PATIENT/CAREGIVER WILL VERBALIZE/DEMONSTRATE METHODS TO REDUCE AVOIDABLE HOSPITALIZATION THROUGHOUT THE CERTIFICATION PERIOD. Goal Provider Goal - PATIENT WILL HAVE SUPPORT MEASURES ESTABLISHED TO PREVENT HOSPITALIZATION AND ED USE AND PATIENT/CAREGIVER WILL VERBALIZE/DEMONSTRATE METHODS TO REDUCE AVOIDABLE HOSPITALIZATION AND ED USE BY END OF EPISODE. Goal Provider Goal - PATIENT/CAREGIVER WILL VERBALIZE UNDERSTANDING OF DISCHARGE PLANNING INSTRUCTIONS BY DATE OF DISCHARGE. Goal Provider Goal - PATIENT/CAREGIVER WILL VERBALIZE/DEMONSTRATE EFFECTIVE ENVIRONMENTAL SAFETY AND FALL PREVENTION STRATEGIES, WILL REMAIN SAFE IN THE COMMUNITY, AND WILL BE FREE OF DANGER TO SELF AND OTHERS THROUGHOUT THE CERTIFICATION PERIOD. Goal Provider Goal - PATIENT/CAREGIVER WILL DEMONSTRATE UNDERSTANDING OF PHARMACOLOGIC AND NONPHARMACOLOGIC PAIN CONTROL MEASURES AND PATIENT WILL HAVE IMPROVEMENT IN PAIN INTERFERING WITH ACTIVITY EVIDENCED BY PAIN AT A LEVEL THAT IS ACCEPTABLE TO THE PATIENT AND PAIN LEVEL WITHIN ESTABLISHED PARAMETERS BY END OF CERTIFICATION PERIOD. Goal Provider Goal - PATIENT/CAREGIVER WILL VERBALIZE UNDERSTANDING OF PRESSURE ULCER PREVENTION BY END OF THE EPISODE. Goal Provider Goal - PATIENT/CAREGIVER WILL VERBALIZE/DEMONSTRATE UNDERSTANDING OF THE MANAGEMENT OF DEPRESSION THROUGHOUT THE CERTIFICATION PERIOD AND SYMPTOMS ARE IDENTIFIED AND MANAGED TO MAINTAIN PATIENT SAFETY IN THE HOME. Goal Provider Goal - PATIENT/CAREGIVER WILL VERBALIZE UNDERSTANDING OF EDUCATION PROVIDED ON MEDICATIONS BY THE END OF THE CERTIFICATION PERIOD. Encounters Start Date/Time End Date/Time Encounter Type Admission Type Attending [facility] Care Facility Care Department Encounter ID Discharge Date Discharge Status Discharge Condition Discharge Reason Percent Goals Met 2025-06-18 00:00:00 2025-08-16 00:00:00 Outpatient NEW ADMISSION TATYANA WATKINS [facility] [id number]
--- OUTSIDE RECORDS SUMMARY | 2025-08-15 19:00 | XMS_ITS | Clinical Summary ---
Author Organization Unknown Care Team Providers Care Software Asset Management Analyst Name Role Phone ANNA TOLLIVER, CHERELLE Unavailable Unavailable BELIA PT, VALORIE Unavailable Unavailable ROLAND SAWYER, TATYANA Unavailable Unavailable Payers Payer Name Policy Type Policy Number Effective Date Expira tion Date MEDICARE - S - PDGM [id number] Problems Condition Name Condition Details Condition Category [...] 200 mg tablet 06-18 00:00: 00 Yes [id number] 1 tablet DAILY 1 tablet DAILY (route: oral) Med Classific ation: Cardiovas cular Therapy Agents B-Complex tablet 06-18 00:00: 00 Yes [id number] 1 tablet DAILY 1 tablet DAILY (route: oral) Med Classific ation: Electroly te Balance-N utritiona l Products bupropion HCl SR 150 mg tablet,12 hr sustained-r elease 06-18 00:00: 00 Yes [id number] 1 tablet 2 TIMES DAILY 1 tablet 2 TIMES DAILY (route: oral) Med Classific ation: Central Nervous System Agents Fish Oil 1,200 mg (144 mg-216 mg) capsule 06-18 00:00: 00 Yes [id number] 2 capsule DAILY 2 capsule DAILY (route: oral) Med Classific ation: Cardiovas cular Therapy Agents furosemide 20 mg tablet 06-18 00:00: 00 Yes [id number] 1 tablet DAILY 1 tablet DAILY (route: oral) Med Classific ation: Cardiovas cular Therapy Agents hydroxyzine HCl 25 mg tablet 06-18 00:00: 00 Yes [id number] 1 tablet 3 TIMES DAILY 1 tablet 3 TIMES DAILY (route: oral) Med Classific ation: Central Nervous System Agents losartan 50 mg tablet 06-18 00:00: 00 Yes [id number] 1 tablet DAILY 1 tablet DAILY (route: oral) Med Classific ation: Cardiovas cular Therapy Agents metoprolol tartrate 50 mg tablet 06-18 00:00: 00 Yes [id number] 1 tablet 2 TIMES DAILY 1 tablet 2 TIMES DAILY (route: oral) Med Classific ation: Cardiovas cular Therapy Agents milk thistle seed extract 250 mg capsule 06-18 00:00: 00 Yes [id number] 1 capsule DAILY 1 capsule DAILY (route: oral) Med Classific ation: Alternati ve Therapy potassium chloride ER 8 mEq capsule,ext ended release 06-18 00:00: 00 Yes [id number] 1 capsule DAILY 1 capsule DAILY (route: oral) Med Classific ation: Electroly te Balance-N utritiona l Products red yeast rice 600 mg capsule 06-18 00:00: 00 Yes [id number] 1 capsule DAILY 1 capsule DAILY (route: oral) Med Classific ation: Alternati ve Therapy tramadol 50 mg tablet 06-18 00:00: 00 Yes [id number] 1 tablet EVERY 8 HOURS 1 tablet [...] MAINTAIN SITUATIONAL AWARENESS AND WILL NOTIFY CLINICAL SHIPPING AGENT AND PHYSICIAN/PROVIDER WITH ANY CHANGE IN CONDITION. [code = SKILLED NURSE TO PERFORM ENVIRONMENTAL SAFETY RISK ASSESSMENT AND FALL RISK ASSESSMENT AND PROVIDE INSTRUCTION TO IMPLEMENT ENVIRONMENTAL SAFETY AND FALL PREVENTION STRATEGIES THROUGHOUT THE CERTIFICATION PERIOD. SKILLED NURSE WILL MAINTAIN SITUATIONAL AWARENESS AND WILL NOTIFY CLINICAL SHIPPING AGENT AND PHYSICIAN/PROVIDER WITH ANY CHANGE IN CONDITION.] [...] CARE WILL BE ESTABLISHED THAT MEETS PATIENT'S RETIREMENT NEEDS AND INCLUDES PATIENT GOAL FOR HOME [...] End Date/Time Encounter Type Admission Type Attending [facility] Care Facility Care Department Encounter ID Discharge Date Discharge Status Discharge Condition Discharge Reason Percent Goals Met 2025-06-18 00:00:00 2025-08-16 00:00:00 Outpatient NEW ADMISSION TATYANA WATKINS [facility] [id number]
== END 2025-07-11 19:15 | disposition home or self-care (01) ==
PROVIDERS: Emergency Provider Physician Assistant; PCP Family Medicine
DX: M25.562 Pain in left knee (principal); G89.29 Other chronic pain; Z87.891 Personal history of nicotine dependence; E78.5 Hyperlipidemia, unspecified; J44.9 Chronic obstructive pulmonary disease, unspecified; I11.0 Hypertensive heart disease with heart failure; I50.20 Unspecified systolic (congestive) heart failure
CPT/HCPCS: 73562; 99283

== ENCOUNTER 2025-07-14 08:45 | Oncology outpatient (recurring) (ONCR) | payer MEDICARE, OTHER, SELFPAY ==
[2025-07-14 09:24] LABS: Hematocrit 31.9 % (36-47); Hemoglobin 10.70 g/dL (11.27-16.99); Mean Corpuscular HGB Conc 33.5 g/dL (30-55); Mean Corpuscular Hemoglobin 33.6 pg (27-33); Mean Corpuscular Volume 100.3 fl (85-98); Nucleated Red Blood Cells % 0.5 %; Platelet Count 435 10^3/cmm (157-399); Red Blood Count 3.18 10^6/uL (3.85-5.65); White Blood Count 9.55 10^3/uL (3.29-11.43)
[2025-07-14 09:44] LABS: Alanine Aminotransferase 15 U/L (0-33); Albumin Level 4.2 g/dL (3.5-5.2); Alkaline Phosphatase 92 U/L (35-105); Anion Gap 12.1 (5-19); Aspartate Amino Transferase 16 U/L (0-32); Blood Urea Nitrogen 16 mg/dL (8-23); Calcium 9.6 mg/dL (8.5-10.5); Carbon Dioxide 29 mmol/L (22-29); Chloride 97 mmol/L (98-107); Creatinine Clr Calc Pharmacy 42.6167; Globulin 2.1 g/dL (1.3-4.6); Glucose 88 mg/dL (65-115); Osmolality Calculated 279 mOsm/kg (285-295); Potassium 4.1 mmol/L (3.5-5.1); Sodium 134 mmol/L (136-145); Total Protein 6.3 g/dL (6.6-8.7)
[2025-07-14] MEDS: luspatercept-aamt 75 mg 61.5 MG SUBCUT (12:29)
== END 2025-07-14 23:59 | disposition home or self-care (01) ==
PROVIDERS: Nurse Practitioner Family; PCP Family Medicine; Visit Provider Internal Medicine Medical Oncology
DX: D46.Z Other myelodysplastic syndromes (principal); R03.0 Elevated blood-pressure reading, without diagnosis of hypertension; R53.83 Other fatigue; Z79.899 Other long term (current) drug therapy; Z87.891 Personal history of nicotine dependence
CPT/HCPCS: 36415; 80053; 85025; 96372; 99214; J0896

== ENCOUNTER 2025-07-16 13:00 | Inpatient (IN) | payer MEDICARE, OTHER, SELFPAY ==
[2025-07-16] VITALS (7 sets, daily range): BP systolic 119–171; BP diastolic 51–103; PULSE 69–83; RESP 16; TEMP 36.7–36.9; O2SAT 90–98; BMI 20.9
--- NOTE | 2025-07-16 13:06 | XR_ITS ---
WS: [id number] Portable AP upright chest, 07/16/2025 Clinical Data: weakness Comparison: Portable chest, 04/04/2025 Findings: No nodules, masses or effusions are seen. The heart is normal. The pulmonary vascularity is not increased. No pneumonia or pneumothorax is seen. The aortic arch shows calcification and tortuosity. There is osteoarthritis of both shoulder joints. XR/XR chest 1V portable [id number] Impression: Atherosclerosis.
--- NOTE | 2025-07-16 13:06 | ECG_ITS ---
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 Measurements Intervals [place] Rate: 74 P: 81 UT: 233 QRS: -11 QRSD: 116 T: 72 QT: 395 QTc: 440 Interpretive Statements SINUS RHYTHM WITH FIRST DEGREE AV BLOCK ANTEROSEPTAL MYOCARDIAL INFARCTION AGE INDETERMINATE Compared to ECG 04/04/2025 16:07:50 No significant changes Electronically Signed On 07-17-2025 09:11:53 CDT by Michele Recio M.D. [email or web address]
--- NOTE | 2025-07-16 13:06 | CT_ITS ---
WS: [id number] CT HEAD NONCONTRAST HISTORY: weakness TECHNIQUE: Contiguous axial imaging performed through the brain. Bone and soft tissue windows. Sagittal and coronal reformats reviewed. All CT scans at [facility] use at least one of these dose optimization techniques: automated exposure control; mA and/or kV adjustment per patient size (includes targeted exams where dose is matched to clinical indication); or iterative reconstruction. DLP: 1121.24 mGy.cm COMPARISON: 04/04/2025 No acute intracranial hemorrhage, midline shift or mass effect. Moderate atrophy bilaterally with mild small vessel disease. No prior infarct. Mild cerebellar atrophy. Ventricles: Normal size with no hydrocephalus. No inferior displacement of the cerebellar tonsils. Paranasal sinuses: Small mucous retention cysts in the maxillary sinuses. No air-fluid levels. Mastoid air cells: Well pneumatized. Calvarium and scalp: Skull is intact with no soft tissue edema or swelling. CT/CT head wo con* [id number] IMPRESSION: 1. No acute intracranial hemorrhage or edema. 2. Moderate cerebral atrophy and mild small vessel disease. Similar to the zander or study.
--- OUTSIDE RECORDS SUMMARY | 2025-07-16 13:09 | XMS_ITS | Encounter Summary ---
Author Organization [facility] Address 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 Glenny Nguyen, 07/10/2025 3:34 PM documented in this encounter Plan of Treatment Upcoming Encounters Date Type Department Care Team (Late st Contact Info) Description 07/21/2025 3:00 PM CDT Video Visit [facility] [place] [address] [address] Jean Gibbons MD [address] [facility] [address] [place] [address] documented as of this encounter Goals Goal Patient Goal Type Associated Problems Recent Progress Patient-Stated? Author Heart Failure Goal Care Plan Heart Failure Problem No Wendy, Jamul Heart Failure Goal Care Plan Heart Failure Problem No Wendy, Jamul Heart Failure Goal Care Plan Heart Failure Problem No Grandstaff, Judy, NATUROPATH Heart Failure Goal Care Plan Heart Failure Problem No Grandstaff, Judy, NATUROPATH Heart Failure Goal Care Plan Heart Failure Problem No Grandstaff, Judy, NATUROPATH Heart Failure Goal Care Plan Heart Failure Problem No Grandstaff, Judy, NATUROPATH Heart Failure Goal Care Plan Heart Failure Problem No Grandstaff, Judy, NATUROPATH Heart Failure Goal Care Plan Heart Failure Problem No Grandstaff, Judy, NATUROPATH Heart Failure Goal Care Plan Heart Failure Problem No Grandstaff, Judy, NATUROPATH Heart Failure Goal Care Plan Heart Failure Problem No Grandstaff, Judy, NATUROPATH Heart Failure Goal Care Plan Heart Failure Problem No Grandstaff, Judy, NATUROPATH Heart Failure Goal Care Plan Heart Failure Problem No Grandstaff, Judy, NATUROPATH Heart Failure Goal Care Plan Heart Failure Problem No Grandstaff, Judy, NATUROPATH Heart Failure Goal Care Plan Heart Failure Problem No Grandstaff, Judy, NATUROPATH Heart Failure Goal Care Plan Heart Failure Problem No Grandstaff, Judy, NATUROPATH Heart Failure Goal Care Plan Heart Failure Problem No Mele, Peyton M, NATUROPATH Heart Failure Goal Care Plan Heart Failure Problem No Cervantes, Azalia K, NATUROPATH Heart Failure Goal Care Plan Heart Failure Problem No Cervantes, Azalia K, NATUROPATH Heart Failure Goal Care Plan Heart Failure Problem No Mele, Peyton M, NATUROPATH Heart Failure Goal Care Plan Heart Failure Problem No Mele, Peyton M, NATUROPATH Heart Failure Goal Care Plan Heart Failure Problem No Mele, Peyton M, NATUROPATH Heart Failure Goal Care Plan Heart Failure Problem No Mele, Peyton M, NATUROPATH Heart Failure Goal Care Plan Heart Failure Problem No Mele, Peyton M, NATUROPATH Heart Failure Goal Care Plan Heart Failure Problem No Mele, Peyton M, NATUROPATH Heart Failure Goal Care Plan Heart Failure Problem No Mele, Peyton M, NATUROPATH Heart Failure Goal Care Plan Heart Failure Problem No Mele, Peyton M, NATUROPATH Heart Failure Goal Care Plan Heart Failure Problem No Mele, Peyton M, NATUROPATH Heart Failure Goal Care Plan Heart Failure Problem No Mele, Peyton M, NATUROPATH Heart Failure Goal Care Plan Heart Failure Problem No Mele, Peyton M, NATUROPATH Heart Failure Goal Care Plan Heart Failure Problem No Mele, Peyton M, NATUROPATH Heart Failure Goal Care Plan Heart Failure Problem No Mele, Peyton M, NATUROPATH Heart Failure Goal Care Plan Heart Failure Problem No Mele, Peyton M, NATUROPATH Heart Failure Goal Care Plan Heart Failure Problem No Mlee, Peyton M, NATUROPATH Heart Failure Goal Care Plan Heart Failure Problem No Mele, Peyton M, NATUROPATH Heart Failure Goal Care Plan Heart Failure [...] Heart Failure Problem No Mele, Peyton M, NATUROPATH Heart Failure Goal Care Plan Heart Failure Problem No Mele, Peyton M, NATUROPATH Heart Failure Goal Care Plan Heart Failure [...] documented as of this encounter Care Teams Pressure Tester Operator Relationship Specialty Start Date End Date Jean Gibbons MD [address] [address] PCP - General Family Practice 04/09/18 documented as of this encounter
--- OUTSIDE RECORDS SUMMARY | 2025-07-16 13:09 | XMS_ITS | Encounter Summary ---
Author Organization [facility] Address [address] [place] [address] Care Team Providers Care Second Mate Name Role Phone Jean Gibbons MD Primary Care Provider [phone] Encounter Details Date Type Department Care Team (Latest Contact Info) Description 05/16/2007 Outpatient Historical [facility] Medicine [place] [address] [address] Deanna Parada NP NO ADDRESS ON FILE Acute Sinusitis, Unspecified (Primary Dx); Dysfunct Eustachian Tube; Other and Unspecified Hyperlipidemia Social History Tobacco Use Types Packs/Day Years Used Date Smoking Tobacco: Never Assessed Comments Unknown Sex and Gender Information Value Date Recorded Sex Assigned at Not on file 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
--- OUTSIDE RECORDS SUMMARY | 2025-07-16 13:09 | XMS_ITS | Clinical Summary ---
Author Organization [facility] Address 104 [facility] [address] [place] [address] Care Team Providers Care Condemnation Engineer Name Role Phone Jean Gibbons MD Primary Care Provider [phone] Allergies Active Allergy Reactions Criticality Noted Date [...] 0 Active fluticasone propionate (FLONASE) 50 mcg/spray [place], Suspension nasal inhaler SHAKE LIQUID AND USE [...] How often do you attend chur or christian services? 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 Gender Identity Not on file Sexual Orientation [...] Recently Relevant to Health Maintenance Insurance [address] [place] [address] MEDICARE PART A AND B [employer] [facility] Advance Directives For more information, please contact: [phone] * Full Code (Latest Code Status on File) Date Activated Date Inactivated Comments 02/18/2015 12:52 PM 02/18/2015 5:48 PM * Full Code Date Activated Date Inactivated Comments 02/18/2015 11:12 AM 02/18/2015 12:52 PM * Full Code Date Activated Date Inactivated Comments 02/18/2015 10:15 AM 02/18/2015 11:12 AM * Full Code Date Activated Date Inactivated Comments 09/24/2013 9:28 AM 09/25/2013 2:01 AM Care Teams Condemnation Engineer Relationship Specialty Start Date End Date Jean Gibbons MD [address] [phone] PCP - General Family Practice 04/09/18
--- OUTSIDE RECORDS SUMMARY | 2025-07-16 13:09 | XMS_ITS | Encounter Summary ---
Author Organization [facility] Address [address] [place] [address] Care Team Providers Care Icing Mixer Name Role Phone Jean Gibbons MD Primary Care Provider [phone] [phone] Encounter Details Date Type Department Care Team (Late st Contact Info) Description 11/18/2007 Outpatient Historical [facility] Medicine [place] [address] [address] Deanna Parada NP NO ADDRESS ON FILE Social History Tobacco Use Types Packs/Day Years Used Date Smoking Tobacco: Never Assessed Comments Unknown Sex and Gender Information Value Date Recorded Sex Assigned at Not on file 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 Gender Identity Not on file Sexual Orientation Not on file documented as of this encounter Plan of Treatment Not on file documented as of this encounter Visit Diagnoses Not on filedocumented in this encounter Additional Health Concerns Infection Onset Date Last Indicated Resolved Time R/O COVID-19 10/21/2020 10/21/2020 10/28/2021 9:17 PM AIR CARRIER MAINTENANCE INSPECTOR documented as of this encounter Care Teams Icing Mixer Relationship Specialty Start Date End Date Jean Gibbons MD [address] [facility] [address] [place] [address] PCP - General Family Practice 04/09/18 documented as of this encounter
--- OUTSIDE RECORDS SUMMARY | 2025-07-16 13:09 | XMS_ITS | Encounter Summary ---
Author Organization [facility] Address [address] [place] [address] Care Team Providers Care Furnace Installer Name Role Phone Jean Gibbons MD Primary Care Provider [phone] [phone] Encounter Details Date Type Department Care Team (Late st Contact Info) Description 10/24/2007 Outpatient Historical [facility] [address] [address] Deanna Parada NP NO ADDRESS ON FILE Social History Tobacco Use Types Packs/Day Years Used Date Smoking Tobacco: Never Assessed Comments Unknown Sex and Gender Information Value Date Recorded Sex Assigned at Not on file Legal Sex Female 4:08 AM POT FILLER Gender Identity Not on file Sexual Orientation Not on file documented as of this encounter Plan of Treatment Not on file documented as of this encounter Visit Diagnoses Not on filedocumented in this encounter Additional Health Concerns Infection Onset Date Last Indicated Resolved Time R/O COVID-19 10/21/2020 10/21/2020 10/28/2021 9:17 PM POT FILLER documented as of this encounter Care Teams Furnace Installer Relationship Specialty Start Date End Date Jean Gibbons MD [address] [facility] [address] [place] [address] PCP - General Family Practice 04/09/18 documented as of this encounter
--- OUTSIDE RECORDS SUMMARY | 2025-07-16 13:09 | XMS_ITS | Encounter Summary ---
Author Organization [facility] Address [address] [place] [address] Care Team Providers Care Care Advocate Name Role Phone Jean Gibbons MD Primary Care Provider [phone] [phone] Encounter Details Date Type Department Care Team (Late st Contact Info) Description 04/09/2018 Ancillary Orders [facility] [place] 104 [facility] [address] [place] [address] Amberly Lima, JACOB [address] [place] [phone] Breast tenderness in female Social History Tobacco Use Types Packs/Day Years Used Date Smoking Tobacco: Former Cigarettes Q uit: 08/12/1990 Smokeless Tobacco: Never Comments:quit in the Alcohol Use Standard Drinks/Week Comments No 0 (1 standard drink = 0.6 oz pur e alcohol) Comments No Sex and Gender Information Value Date Recorded Sex Assigned at Not on file Legal Sex Female 4:08 AM SUPERVISOR SPECIAL EDUCATION Gender Identity Not on file Sexual Orientation [...] R/O COVID-19 10/21/2020 10/21/2020 10/28/2021 9:17 PM SUPERVISOR SPECIAL EDUCATION Assessment Noted Time PHQ-9 Depression Total Score: 1 01/01/20 18 11:00 AM SUPERVISOR SPECIAL EDUCATION documented as of this encounter Care Teams Care Advocate Relationship Specialty Start Date End Date Jean Gibbons MD [address] [address] PCP - General Family Practice 04/09/18 documented as of this encounter
--- OUTSIDE RECORDS SUMMARY | 2025-07-16 13:09 | XMS_ITS | Encounter Summary ---
Author Organization [facility] Address [address] [place] [address] Care Team Providers Care Gas Pumping Station Operator Name Role Phone Jean Gibbons MD Primary Care Provider [phone] [phone] Reason for Visit * Reason Comments Provider Call Encounter Details Date Type Department Care Team (Late st Contact Info) Description 07/09/2025 Telephone [facility] Family Medicine [address] [address] Jean Gibbons MD [address] [address] Provider Call Social History Tobacco [...] on file Legal Sex Female 4:19 AM WHEEL BLOCKER Gender Identity Not on file Sexual Orientation Not on file documented as of this encounter Miscellaneous Notes * Telephone Encounter - Leah Verde - 07/09/2025 11:06 AM CDT Copied from [facility] #[id number]. Topic: Chrngzru-Hj-Noyosmji Call >> Jul 09, 2025 11:03 AM Leah Johnson wrote: Caller is requesting to speak with Clinical Care Team. Caller Name: Radha Hinojosa Callback Number: [phone] Is the caller a Physician, Nurse Practitioner or Physician Wrestling Coach? No Call Notes: Bruise on forehead and a skin tear on right hand after falling out of her chair. She has no other injuries. Is this addressing an immediate patient care need? No documented in this encounter Plan of Treatment Upcoming Encounters Date Type Department Care Team (Late st Contact Info) Description 07/21/2025 3:00 PM CDT Video Visit [facility] Medicine [place] [address] [address] Jean Gibbons MD [address] [address] documented as of this encounter Goals Goal Patient Goal Type Associated Problems Recent Progress Patient-Stated? Author Heart Failure Goal Care Plan Heart Failure Problem No Glenny Nguyen Heart Failure Goal Care Plan Heart Failure Problem No Wendy Glenny Heart Failure Goal Care Plan Heart Failure Problem No Grandstaff, Judy, CHESTNUT TANNER Heart Failure Goal Care Plan Heart Failure Problem No Grandstaff, Judy, CHESTNUT TANNER Heart Failure Goal Care Plan Heart Failure Problem No Grandstaff, Judy, CHESTNUT TANNER Heart Failure Goal Care Plan Heart Failure Problem No Grandstaff, Judy, CHESTNUT TANNER Heart Failure Goal Care Plan Heart Failure Problem No Grandstaff, Judy, CHESTNUT TANNER Heart Failure Goal Care Plan Heart Failure Problem No Grandstaff, Judy, CHESTNUT TANNER Heart Failure Goal Care Plan Heart Failure Problem No Grandstaff, Judy, CHESTNUT TANNER Heart Failure Goal Care Plan Heart Failure Problem No Grandstaff, Judy, CHESTNUT TANNER Heart Failure Goal Care Plan Heart Failure Problem No Grandstaff, Judy, CHESTNUT TANNER Heart Failure Goal Care Plan Heart Failure Problem No Grandstaff, Judy, CHESTNUT TANNER Heart Failure Goal Care Plan Heart Failure Problem No Grandstaff, Judy, CHESTNUT TANNER Heart Failure Goal Care Plan Heart Failure Problem No Grandstaff, Judy, CHESTNUT TANNER Heart Failure Goal Care Plan Heart Failure Problem No Grandstaff, Judy, CHESTNUT TANNER Heart Failure Goal Care Plan Heart Failure Problem No Mele, Peyton M, CHESTNUT TANNER Heart Failure Goal Care Plan Heart Failure Problem No Cervantes, Azalia K, CHESTNUT TANNER Heart Failure Goal Care Plan Heart Failure Problem No Cervantes, Azalia K, CHESTNUT TANNER Heart Failure Goal Care Plan Heart Failure Problem No Mele, Peyton M, CHESTNUT TANNER Heart Failure Goal Care Plan Heart Failure Problem No Mele, Peyton M, CHESTNUT TANNER Heart Failure Goal Care Plan Heart Failure Problem No Mele, Peyton M, CHESTNUT TANNER Heart Failure Goal Care Plan Heart Failure Problem No Mele, Peyton M, CHESTNUT TANNER Heart Failure Goal Care Plan Heart Failure Problem No Mele, Peyton M, CHESTNUT TANNER Heart Failure Goal Care Plan Heart Failure Problem No Mele, Peyton M, CHESTNUT TANNER Heart Failure Goal Care Plan Heart Failure Problem No Mele, Peyton M, CHESTNUT TANNER Heart Failure Goal Care Plan Heart Failure Problem No Mele, Peyton M, CHESTNUT TANNER Heart Failure Goal Care Plan Heart Failure Problem No Mele, Peyton M, CHESTNUT TANNER Heart Failure Goal Care Plan Heart Failure Problem No Mele, Peyton M, CHESTNUT TANNER Heart Failure Goal Care Plan Heart Failure Problem No Mele, Peyton M, CHESTNUT TANNER Heart Failure Goal Care Plan Heart Failure Problem No Meel, Peyton M, CHESTNUT TANNER Heart Failure Goal Care Plan Heart Failure Problem No Mele, Peyton M, CHESTNUT TANNER Heart Failure Goal Care Plan Heart Failure Problem No Mele, Peyton M, CHESTNUT TANNER Heart Failure Goal Care Plan Heart Failure Problem No Mele, Peyton M, CHESTNUT TANNER Heart Failure Goal Care Plan Heart Failure Problem No Mele, Peyton M, CHESTNUT TANNER Heart Failure Goal Care Plan Heart Failure [...] Heart Failure Problem No Mele, Peyton M, CHESTNUT TANNER Heart Failure Goal Care Plan Heart Failure Problem No Mele, Peyton M, CHESTNUT TANNER Heart Failure Goal Care Plan Heart Failure [...] documented as of this encounter Care Teams Gas Pumping Station Operator Relationship Specialty Start Date End Date Jean Gibbons MD [address] [phone] PCP - General Family Practice 04/09/18 documented as of this encounter
--- OUTSIDE RECORDS SUMMARY | 2025-07-16 13:09 | XMS_ITS | Encounter Summary ---
Author Organization [facility] Address [address] [place] [address] Care Team Providers Care Wet Process Technician Name Role Phone Jean Gibbons MD Primary Care Provider [phone] [phone] Reason for Referral * Radiology Services (Routine) - Closed Specialty Diagnoses / Procedures Referred By Contac t Referred To Contact Diagnoses Abnormal mammogram Procedures MAMMO BREAST US [employer] Jean Gibbons MD [address] [address] Phone: tel: fax: Referral ID Status Reason Start Date Expiration Date Visits Re quested Visits Authorized [id number] Closed 10/14/2018 11/14/2019 1 1 GORY ANALYST Encounter Details Date Type Department Care Team (Late st Contact Info) Description 10/14/2018 Ancillary Orders [facility] [address] [address] Jean Gibbons MD [address] [address] Abnormal mammogram Social History Tobacco Use Types Packs/Day Years Used Date Smoking Tobacco: Former Cigarettes Q uit: 08/12/1990 Smokeless Tobacco: Never Comments:quit in the Alcohol Use Standard Drinks/Week Comments No 0 (1 standard drink = 0.6 oz pur e alcohol) Comments No Sex and Gender Information Value Date Recorded Sex Assigned at Not on file Legal Sex Female 4:08 AM CATEGORY ANALYST Gender Identity Not on file Sexual Orientation Not on file Occupation Industry Job Start Date Job End Date Not on file Not on file Not on file Not on file documented as of this encounter Plan of Treatment Not on file documented as of this encounter Results * (ABNORMAL) MAMMO BREAST US [employer] (10/14/2018 4:14 PM CATEGORY ANALYST) Anatomical Region Laterality Modality Bilateral Ultrasound 10/14/2018 4:14 PM CATEGORY ANALYST Impressions 10/15/2018 6:48 AM CATEGORY ANALYST : Stable to smaller sonographic appearance of [...] and bilateral breast ultrasound in six months. [id number] Narrative 10/15/2018 6:48 AM CATEGORY ANALYST EXAM: MAMMO DIAG BILAT 3D SHAI W OR WO CAD, MAMMO BREAST US [employer] INDICATION: 73-year-old female presents for six month [...] R/O COVID-19 10/21/2020 10/21/2020 10/28/2021 9:17 PM CATEGORY ANALYST Assessment Noted Time PHQ-9 Depression Total Score: 1 01/01/20 18 11:00 AM CATEGORY ANALYST documented as of this encounter Care Teams Wet Process Technician Relationship Specialty Start Date End Date Jean Gibbons MD [address] [facility] 60 [place] [address] PCP - General Family Practice 04/09/18 documented as of this encounter
--- OUTSIDE RECORDS SUMMARY | 2025-07-16 13:09 | XMS_ITS | Encounter Summary ---
Author Organization [facility] Address [address] [place] [address] Care Team Providers Care Milk Bottler Name Role Phone Jean Gibbons MD Primary Care Provider [phone] Reason for Referral * Radiology Services (Routine) - Closed Specialty Diagnoses / Procedures Referred By Contac t Referred To Contact Radiology Diagnoses Abnormal mammogram Procedures MAMMO DIAG BILAT 3D SHAI W OR WO CAD MAMMO DIAGNOSTIC BILATERAL W OR WO CAD CHG DIAGNOSTIC MAMMOGRAPHY COMPUTER-AIDED DETCJ BI CHG DIGITAL BREAST TOMOSYNTHESIS BILATERAL Jean Gibbons MD [address] [address] Phone: tel: fax: [facility] [address] [facility] [address] [place] [address] Phone: tel: fax: Referral ID Status Reason Start Date Expiration Date V isits Requested Visits Authorized [id number] Closed F MC TO SCHEDULE (SGF) 09/20/2018 10/21/2019 1 1 RT DEVELOPER Encounter Details Date Type Department Care Team (Late st Contact Info) Description 10/11/2018 Ancillary Orders [facility] [address] [facility] [address] [place] [address] Jean Gibbons MD [address] [address] Abnormal mammogram Social History Tobacco Use Types Packs/Day Years Used Date Smoking Tobacco: Former Cigarettes Q uit: 08/12/1990 Smokeless Tobacco: Never Comments:quit in the Alcohol Use Standard Drinks/Week Comments No 0 (1 standard drink = 0.6 oz pur e alcohol) Comments No Sex and Gender Information Value Date Recorded Sex Assigned at Not on file Legal Sex Female 4:08 AM REPORT DEVELOPER Gender Identity Not on file Sexual Orientation Not on file Occupation Industry Job Start Date Job End Date Not on file Not on file Not on file Not on file documented as of this encounter Plan of Treatment Not on file documented as of this encounter Results * (ABNORMAL) MAMMO DIAG BILAT 3D SHAI W OR WO CAD (10/14/2018 3:38 PM REPORT DEVELOPER) Anatomical Region Laterality Modality Breast Bilateral Mammography 10/14/2018 3:38 PM REPORT DEVELOPER Impressions 10/15/2018 6:48 AM REPORT DEVELOPER : Stable to smaller sonographic appearance of [...] and bilateral breast ultrasound in six months. [id number] Narrative 10/15/2018 6:48 AM REPORT DEVELOPER EXAM: MAMMO DIAG BILAT 3D SHAI W [...] R/O COVID-19 10/21/2020 10/21/2020 10/28/2021 9:17 PM REPORT DEVELOPER Assessment Noted Time PHQ-9 Depression Total Score: 1 01/01/20 18 11:00 AM REPORT DEVELOPER documented as of this encounter Care Teams Milk Bottler Relationship Specialty Start Date End Date Jean Gibbons MD [address] [address] PCP - General Family Practice 04/09/18 documented as of this encounter
--- OUTSIDE RECORDS SUMMARY | 2025-07-16 13:09 | XMS_ITS | Encounter Summary ---
Author Organization [facility] Address [address] [place] [address] Care Team Providers Care Rubber Tire Curer Name Role Phone Jean Gibbons MD Primary Care Provider [phone] Reason for Referral * Outpatient Services (Routine) - Closed Specialty Diagnoses / Procedures Referred By Mack lewis Referred To Contact Diagnoses Breast tenderness in female Procedures MAMMO BREAST US BILAT LTD Amberly Lima FNP Phone: tel: fax: [facility] Pre-Registration [place] CALL TO MAKE APPOINTMENT ONLY [address] [place] [address] Phone: tel: fax: Referral ID Status Reason Start Date Expiration Date Visits Re quested Visits Authorized [id number] Closed 05/01/2018 06/01/2019 1 1 Encounter Details Date Type Department Care Team (Late st Contact Info) Description 05/01/2018 Ancillary Orders [facility] Family Medicine [place] 104 [facility] [address] [place] [phone] Amberly Lima FNP [address] [place] [phone] Breast tenderness in female Social History Tobacco Use Types Packs/Day Years Used Date Smoking Tobacco: Former Cigarettes Q uit: 08/12/1990 Smokeless Tobacco: Never Comments:quit in the Alcohol Use Standard Drinks/Week Comments No 0 (1 standard drink = 0.6 oz pur e alcohol) Comments No Sex and Gender Information Value Date Recorded Sex Assigned at Not on file Legal Sex Female 4:08 AM SANITATION LEAD Gender Identity Not on file Sexual Orientation Not on file Occupation Industry Job Start Date Job End Date Not on file Not on file Not on file Not on file documented as of this encounter Plan of Treatment Not on file documented as of this encounter Results * (ABNORMAL) MAMMO BREAST US [employer] (05/01/2018 1:03 PM CDT) Anatomical Region Laterality [...] also recommended. Patient received a result/recommendation letter. [id number] Narrative 05/03/2018 9:22 AM CDT EXAM: MAMMO DIAGNOSTIC BILATERAL W OR WO CAD, MAMMO BREAST US [employer] [facility] [place] INDICATION: 72-year-old female presents with tenderness and [...] 1 cm from the nipple. Amberly Lima [facility] MAMMO ORDERABLES Final Result documented in this encounter Visit Diagnoses Diagnosis Breast tenderness in female Mastodynia Breast tenderness in female Mastodynia documented in this encounter Additional Health Concerns Infection Onset Date Last Indicated Resolved Time R/O COVID-19 10/21/2020 10/21/2020 10/28/2021 9:17 PM SANITATION LEAD Assessment Noted Time PHQ-9 Depression Total Score: 1 01/01/20 18 11:00 AM SANITATION LEAD documented as of this encounter Care Teams Rubber Tire Curer Relationship Specialty Start Date End Date Jean Gibbons MD [address] [address] PCP - General Family Practice 04/09/18 documented as of this encounter
--- OUTSIDE RECORDS SUMMARY | 2025-07-16 13:09 | XMS_ITS | Encounter Summary ---
Author Organization [facility] Address [address] [place] [address] Care Team Providers Care Communications Department Head Name Role Phone Jean Gibbons MD Primary Care Provider [phone] [phone] Encounter Details Date Type Department Care Team (Late st Contact Info) Description 05/20/2018 Ancillary Orders [facility] [address] [facility] [address] [place] [address] Amberly Lima FNP [address] [place] [address] Breast tenderness in female Social [...] on file Legal Sex Female 4:08 AM RABBLER Gender Identity Not on file Sexual Orientation [...] be scanned to PACS. us Amberly Lima SUPPLY TECH DIAGNOSTIC IMAGING ORDERABLES Fi nal Result * MAMMO PRIOR STUDY (04/15/2015 12:30 PM CDT) Narrative 05/20/2018 12:26 PM CDT This exam was auto finalized to allow images to be scanned to PACS. us Amberly Lima SUPPLY TECH DIAGNOSTIC IMAGING ORDERABLES Fi nal Result * MAMMO PRIOR STUDY (04/03/2014 12:30 PM CDT) Narrative 05/20/2018 12:27 PM CDT This exam was auto finalized to allow images to be scanned to PACS. us Amberly Lima SUPPLY TECH DIAGNOSTIC IMAGING ORDERABLES Fi nal Result * MAMMO PRIOR STUDY (04/15/2013 12:55 PM CDT) Narrative 05/20/2018 12:53 PM CDT This exam was auto finalized to allow images to be scanned to PACS. us Amberly Lima SUPPLY TECH DIAGNOSTIC IMAGING ORDERABLES Fi nal Result * MAMMO PRIOR STUDY (04/15/2013 12:45 PM CDT) Narrative 05/20/2018 12:44 PM CDT This exam was auto finalized to allow images to be scanned to PACS. us Amberly Lima SUPPLY TECH DIAGNOSTIC IMAGING ORDERABLES Fi nal Result * MAMMO PRIOR STUDY (03/25/2013 12:50 PM CDT) Narrative 05/20/2018 12:47 PM CDT This exam was auto finalized to allow images to be scanned to PACS. us Amberly Lima SUPPLY TECH DIAGNOSTIC IMAGING ORDERABLES Fi nal Result * MAMMO PRIOR STUDY (02/05/2012 12:55 PM CDT) Narrative 05/20/2018 12:53 PM CDT This exam was auto finalized to allow images to be scanned to PACS. us Amberly Lima SUPPLY TECH DIAGNOSTIC IMAGING ORDERABLES Fi nal Result * MAMMO PRIOR STUDY (02/05/2012 12:50 PM CDT) Narrative 05/20/2018 12:46 PM CDT This exam was auto finalized to allow images to be scanned to PACS. us Gaming Clarence SUPPLY TECH DIAGNOSTIC IMAGING ORDERABLES Fi nal Result * MAMMO PRIOR STUDY (09/18/2011 12:55 PM RABBLER) Narrative 05/20/2018 12:54 PM CDT This exam was auto finalized to allow images to be scanned to PACS. us Amberly Lima SUPPLY TECH DIAGNOSTIC IMAGING ORDERABLES Fi nal Result * MAMMO PRIOR STUDY (06/13/2011 12:55 PM CDT) Narrative 05/20/2018 12:54 PM CDT This exam was auto finalized to allow images to be scanned to PACS. us Amberly Lima SUPPLY TECH DIAGNOSTIC IMAGING ORDERABLES Fi nal Result * MAMMO PRIOR STUDY (06/02/2011 12:45 PM CDT) Narrative 05/20/2018 12:44 PM CDT This exam was auto finalized to allow images to be scanned to PACS. us Amberly Lima SUPPLY TECH DIAGNOSTIC IMAGING ORDERABLES Fi nal Result * MAMMO PRIOR STUDY (05/16/2011 12:50 PM CDT) Narrative 05/20/2018 12:47 PM CDT This exam was auto finalized to allow images to be scanned to PACS. us Mejiamartine Lima SUPPLY TECH DIAGNOSTIC IMAGING ORDERABLES Fi nal Result * MAMMO PRIOR STUDY (03/31/2010 12:45 PM CDT) Narrative 05/20/2018 12:45 PM CDT This exam was auto finalized to allow images to be scanned to PACS. us Amberly Lima SUPPLY TECH DIAGNOSTIC IMAGING ORDERABLES Fi nal Result * MAMMO PRIOR STUDY (03/04/2009 12:45 PM CDT) Narrative 05/20/2018 12:45 PM CDT This exam was auto finalized to allow images to be scanned to PACS. us Amberly Lima SUPPLY TECH DIAGNOSTIC IMAGING ORDERABLES Fi nal Result * MAMMO PRIOR STUDY (01/19/2009 1:00 PM CDT) Narrative 05/20/2018 12:57 PM CDT This exam was auto finalized to allow images to be scanned to PACS. us Amberly Lima SUPPLY TECH DIAGNOSTIC IMAGING ORDERABLES Fi nal Result * MAMMO PRIOR STUDY (01/19/2009 12:45 PM CDT) Narrative 05/20/2018 12:45 PM CDT This exam was auto finalized to allow images to be scanned to PACS. us Amberly Lima SUPPLY TECH DIAGNOSTIC IMAGING ORDERABLES Fi nal Result * MAMMO PRIOR STUDY (09/10/2008 1:00 PM CDT) Narrative 05/20/2018 12:57 PM CDT This exam was auto finalized to allow images to be scanned to PACS. us Amberly Lima SUPPLY TECH DIAGNOSTIC IMAGING ORDERABLES Fi nal Result * MAMMO PRIOR STUDY (09/10/2008 12:50 PM CDT) Narrative 05/20/2018 12:46 PM CDT This exam was auto finalized to allow images to be scanned to PACS. us Amberyl Lima SUPPLY TECH DIAGNOSTIC IMAGING ORDERABLES Fi nal Result * MAMMO PRIOR STUDY (03/02/2008 1:00 PM CDT) Narrative 05/20/2018 12:58 PM CDT This exam was auto finalized to allow images to be scanned to PACS. Amberly Clarence [facility] DIAGNOSTIC IMAGING ORDERABLES Fi nal Result * MAMMO PRIOR STUDY (03/02/2008 12:50 PM CDT) Narrative 05/20/2018 12:46 PM CDT This exam was auto finalized to allow images to be scanned to PACS. Amberly Clarence [facility] DIAGNOSTIC IMAGING ORDERABLES Fi nal Result [...] R/O COVID-19 10/21/2020 10/21/2020 10/28/2021 9:17 PM RABBLER Assessment Noted Time PHQ-9 Depression Total Score: 1 01/01/20 18 11:00 AM RABBLER documented as of this encounter Care Teams Communications Department Head Relationship Specialty Start Date End Date Jean Gibbons MD [address] [phone] PCP - General Family Practice 04/09/18 documented as of this encounter
--- OUTSIDE RECORDS SUMMARY | 2025-07-16 13:09 | XMS_ITS | Encounter Summary ---
Author Organization [facility] Address [address] [place] [address] Care Team Providers Care Instrument Man Name Role Phone Jean Gibbons MD Primary Care Provider +1 [phone] Encounter Details Date Type Department Care Team (Late st Contact Info) Description 07/10/2025 Orders Only [facility] Family Medicine [place] [address] [address] Jean Gibbons MD [address] [address] Social History Tobacco Use Types [...] on file Legal Sex Female 4:19 AM RN REHAB Gender Identity Not on file Sexual Orientation Not on file documented as of this encounter Plan of Treatment Upcoming Encounters Date Type Department Care Team (Late st Contact Info) Description 07/21/2025 3:00 PM CDT Video Visit [address] [phone] Jean Gibbons MD [address] [phone] documented as of this encounter Goals Goal Patient Goal Type Associated Problems Recent Progress Patient-Stated? Author Heart Failure Goal Care Plan Heart Failure Problem No Glenny Nguyen Heart Failure Goal Care Plan Heart Failure Problem No Glenny Nguyen Heart Failure Goal Care Plan Heart Failure Problem No Grandstaff, Judy, PLUNKET NURSE Heart Failure Goal Care Plan Heart Failure Problem No Grandstaff, Judy, PLUNKET NURSE Heart Failure Goal Care Plan Heart Failure Problem No Grandstaff, Judy, PLUNKET NURSE Heart Failure Goal Care Plan Heart Failure Problem No Grandstaff, Judy, PLUNKET NURSE Heart Failure Goal Care Plan Heart Failure Problem No Grandstaff, Judy, PLUNKET NURSE Heart Failure Goal Care Plan Heart Failure Problem No Grandstaff, Judy, PLUNKET NURSE Heart Failure Goal Care Plan Heart Failure Problem No Grandstaff, Judy, PLUNKET NURSE Heart Failure Goal Care Plan Heart Failure Problem No Grandstaff, Judy, PLUNKET NURSE Heart Failure Goal Care Plan Heart Failure Problem No Grandstaff, Judy, PLUNKET NURSE Heart Failure Goal Care Plan Heart Failure Problem No Grandstaff, Judy, PLUNKET NURSE Heart Failure Goal Care Plan Heart Failure Problem No Grandstaff, Judy, PLUNKET NURSE Heart Failure Goal Care Plan Heart Failure Problem No Grandstaff, Judy, PLUNKET NURSE Heart Failure Goal Care Plan Heart Failure Problem No Grandstaff, Judy, PLUNKET NURSE Heart Failure Goal Care Plan Heart Failure Problem No Mele, Peyton M, PLUNKET NURSE Heart Failure Goal Care Plan Heart Failure Problem No Cervantes, Azalia K, PLUNKET NURSE Heart Failure Goal Care Plan Heart Failure Problem No Cervantes, Azalia K, PLUNKET NURSE Heart Failure Goal Care Plan Heart Failure Problem No Mele, Peyton M, PLUNKET NURSE Heart Failure Goal Care Plan Heart Failure Problem No Mele, Peyton M, PLUNKET NURSE Heart Failure Goal Care Plan Heart Failure Problem No Mele, Peyton M, PLUNKET NURSE Heart Failure Goal Care Plan Heart Failure Problem No Mele, Peyton M, PLUNKET NURSE Heart Failure Goal Care Plan Heart Failure Problem No Mele, Peyton M, PLUNKET NURSE Heart Failure Goal Care Plan Heart Failure Problem No Mele, Peyton M, PLUNKET NURSE Heart Failure Goal Care Plan Heart Failure Problem No Mele, Peyton M, PLUNKET NURSE Heart Failure Goal Care Plan Heart Failure Problem No Mele, Peyton M, PLUNKET NURSE Heart Failure Goal Care Plan Heart Failure Problem No Mele, Peyton M, PLUNKET NURSE Heart Failure Goal Care Plan Heart Failure Problem No Mele, Peyton M, PLUNKET NURSE Heart Failure Goal Care Plan Heart Failure Problem No Mele, Peyton M, PLUNKET NURSE Heart Failure Goal Care Plan Heart Failure Problem No Mele, Peyton M, PLUNKET NURSE Heart Failure Goal Care Plan Heart Failure Problem No Mele, Peyton M, PLUNKET NURSE Heart Failure Goal Care Plan Heart Failure Problem No Mele, Peyton M, PLUNKET NURSE Heart Failure Goal Care Plan Heart Failure Problem No Mele, Peyton M, PLUNKET NURSE Heart Failure Goal Care Plan Heart Failure Problem No Mele, Peyton M, PLUNKET NURSE Heart Failure Goal Care Plan Heart Failure [...] Heart Failure Problem No Mele, Peyton M, PLUNKET NURSE Heart Failure Goal Care Plan Heart Failure Problem No Mele, Peyton M, PLUNKET NURSE Heart Failure Goal Care Plan Heart Failure [...] documented as of this encounter Care Teams Instrument Man Relationship Specialty Start Date End Date Jean Gibbons MD [address] [facility] [address] [place] [phone] PCP - General Family Practice 04/09/18 documented as of this encounter
--- OUTSIDE RECORDS SUMMARY | 2025-07-16 13:09 | XMS_ITS | Encounter Summary ---
Author Organization [facility] Address [address] [place] [address] Care Team Providers Care Software Client Architect Name Role Phone Jean Gibbons MD Primary Care Provider +1 [phone] Encounter Details Date Type Department Care Team (Late st Contact Info) Description 09/20/2018 Ancillary Orders [facility] Pre-Registration [place] CALL TO MAKE APPOINTMENT ONLY [address] [place] [address] Jean Gibbons MD [address] [facility] [place] [address] Abnormal mammogram Social History Tobacco Use Types Packs/Day Years Used Date Smoking Tobacco: Former Cigarettes Q uit: 08/12/1990 Smokeless Tobacco: Never Comments:quit in the Alcohol Use Standard Drinks/Week Comments No 0 (1 standard drink = 0.6 oz pur e alcohol) Comments No Sex and Gender Information Value Date Recorded Sex Assigned at Not on file Legal Sex Female 4:08 AM POLITICAL AIDE Gender Identity Not on file Sexual Orientation [...] R/O COVID-19 10/21/2020 10/21/2020 10/28/2021 9:17 PM POLITICAL AIDE Assessment Noted Time PHQ-9 Depression Total Score: 1 01/01/20 18 11:00 AM POLITICAL AIDE documented as of this encounter Care Teams Software Client Architect Relationship Specialty Start Date End Date Jean Gibbons MD [address] [phone] PCP - General Family Practice 04/09/18 documented as of this encounter
--- OUTSIDE RECORDS SUMMARY | 2025-07-16 13:09 | XMS_ITS | Encounter Summary ---
Author Organization [facility] Address [address] [place] [address] Care Team Providers Care Tool Supervisor Name Role Phone Jean Gibbons MD Primary Care Provider +1 [phone] Encounter Details Date Type Department Care Team (Late st Contact Info) Description 07/10/2025 Patient Self-Triage [facility] [address] [place] [address] Social History Tobacco Use Types [...] on file Legal Sex Female 4:19 AM EMERY WHEEL WORKER Gender Identity Not on file Sexual Orientation Not on file documented as of this encounter Plan of Treatment Upcoming Encounters Date Type Department Care Team (Late st Contact Info) Description 07/21/2025 3:00 PM CDT Video Visit [address] [phone] Jean Gibbons MD [address] [place] [phone] documented as of this encounter Goals Goal Patient Goal Type Associated Problems Recent Progress Patient-Stated? Author Heart Failure Goal Care Plan Heart Failure Problem No Wendy, Arthur Heart Failure Goal Care Plan Heart Failure Problem No Wendy, Arthur Heart Failure Goal Care Plan Heart Failure Problem No Grandstaff, Judy, COMMERCIAL ESCROW OFFICER Heart Failure Goal Care Plan Heart Failure Problem No Grandstaff, Judy, COMMERCIAL ESCROW OFFICER Heart Failure Goal Care Plan Heart Failure Problem No Grandstaff, Judy, COMMERCIAL ESCROW OFFICER Heart Failure Goal Care Plan Heart Failure Problem No Grandstaff, Judy, COMMERCIAL ESCROW OFFICER Heart Failure Goal Care Plan Heart Failure Problem No Grandstaff, Judy, COMMERCIAL ESCROW OFFICER Heart Failure Goal Care Plan Heart Failure Problem No Grandstaff, Judy, COMMERCIAL ESCROW OFFICER Heart Failure Goal Care Plan Heart Failure Problem No Grandstaff, Judy, COMMERCIAL ESCROW OFFICER Heart Failure Goal Care Plan Heart Failure Problem No Grandstaff, Judy, COMMERCIAL ESCROW OFFICER Heart Failure Goal Care Plan Heart Failure Problem No Grandstaff, Judy, COMMERCIAL ESCROW OFFICER Heart Failure Goal Care Plan Heart Failure Problem No Grandstaff, Judy, COMMERCIAL ESCROW OFFICER Heart Failure Goal Care Plan Heart Failure Problem No Grandstaff, Judy, COMMERCIAL ESCROW OFFICER Heart Failure Goal Care Plan Heart Failure Problem No Grandstaff, Judy, COMMERCIAL ESCROW OFFICER Heart Failure Goal Care Plan Heart Failure Problem No Grandstaff, Judy, COMMERCIAL ESCROW OFFICER Heart Failure Goal Care Plan Heart Failure Problem No Mele, Peyton M, COMMERCIAL ESCROW OFFICER Heart Failure Goal Care Plan Heart Failure Problem No Cervantes, Azalia K, COMMERCIAL ESCROW OFFICER Heart Failure Goal Care Plan Heart Failure Problem No Cervantes, Azalia K, COMMERCIAL ESCROW OFFICER Heart Failure Goal Care Plan Heart Failure Problem No Mele, Peyton M, COMMERCIAL ESCROW OFFICER Heart Failure Goal Care Plan Heart Failure Problem No Mele, Peyton M, COMMERCIAL ESCROW OFFICER Heart Failure Goal Care Plan Heart Failure Problem No Mele, Peyton M, COMMERCIAL ESCROW OFFICER Heart Failure Goal Care Plan Heart Failure Problem No Mele, Peyton M, COMMERCIAL ESCROW OFFICER Heart Failure Goal Care Plan Heart Failure Problem No Mele, Peyton M, COMMERCIAL ESCROW OFFICER Heart Failure Goal Care Plan Heart Failure Problem No Mele, Peyton M, COMMERCIAL ESCROW OFFICER Heart Failure Goal Care Plan Heart Failure Problem No Mele, Peyton M, COMMERCIAL ESCROW OFFICER Heart Failure Goal Care Plan Heart Failure Problem No Mele, Peyton M, COMMERCIAL ESCROW OFFICER Heart Failure Goal Care Plan Heart Failure Problem No Mele, Peyton M, COMMERCIAL ESCROW OFFICER Heart Failure Goal Care Plan Heart Failure Problem No Mele, Peyton M, COMMERCIAL ESCROW OFFICER Heart Failure Goal Care Plan Heart Failure Problem No Mele, Peyton M, COMMERCIAL ESCROW OFFICER Heart Failure Goal Care Plan Heart Failure Problem No Mele, Peyton M, COMMERCIAL ESCROW OFFICER Heart Failure Goal Care Plan Heart Failure Problem No Mele, Peyton M, COMMERCIAL ESCROW OFFICER Heart Failure Goal Care Plan Heart Failure Problem No Mele, Peyton M, COMMERCIAL ESCROW OFFICER Heart Failure Goal Care Plan Heart Failure Problem No Mele, Peyton M, COMMERCIAL ESCROW OFFICER Heart Failure Goal Care Plan Heart Failure Problem No Mele, Peyton M, COMMERCIAL ESCROW OFFICER Heart Failure Goal Care Plan Heart Failure [...] Heart Failure Problem No Mele, Peyton M, COMMERCIAL ESCROW OFFICER Heart Failure Goal Care Plan Heart Failure Problem No Mele, Peyton M, COMMERCIAL ESCROW OFFICER Heart Failure Goal Care Plan Heart Failure [...] documented as of this encounter Care Teams Tool Supervisor Relationship Specialty Start Date End Date Jean Gibbons MD [address] [facility] [address] [place] [phone] PCP - General Family Practice 04/09/18 documented as of this encounter
--- OUTSIDE RECORDS SUMMARY | 2025-07-16 13:09 | XMS_ITS | Encounter Summary ---
Author Organization [facility] Address [address] [place] [address] Care Team Providers Care Composing Room Machinist Name Role Phone Jean Gibbons MD Primary Care Provider [phone] [phone] Encounter Details Date Type Department Care Team [...] on file Legal Sex Female 4:08 AM HEALTH INFORMATION CODER Gender Identity Not on file Sexual Orientation [...] LIST <<<<<<<< TRIAGE NOTE >>>>>>>> Triage Note: Disbursing Agent Nat Arnold added this note on Jul [...] R/O COVID-19 10/21/2020 10/21/2020 10/28/2021 9:17 PM HEALTH INFORMATION CODER documented as of this encounter Care Teams Composing Room Machinist Relationship Specialty Start Date End Date Jean Gibbons MD [address] [phone] PCP - General Family Practice 04/09/18 documented as of this encounter
--- OUTSIDE RECORDS SUMMARY | 2025-07-16 13:09 | XMS_ITS | Encounter Summary ---
Author Organization [facility] Address [address] [place] [address] Care Team Providers Care Travel Insurance Agent Name Role Phone Jean Gibbons MD Primary Care Provider [phone] [phone] Encounter Details Date Type Department Care Team (Latest Contact Info) Description 08/27/2007 Outpatient Historical [facility] Medicine [place] [address] [address] Ben Winters DO NO ADDRESS ON FILE Vaccine for Influenza (Primary Dx) Social History Tobacco Use Types Packs/Day Years Used Date Smoking Tobacco: Never Assessed Comments Unknown Sex and Gender Information Value Date Recorded Sex Assigned at Not on file Legal Sex Female 4:08 AM JUSTICE PROFESSOR Gender Identity Not on file Sexual Orientation Not on file documented as of this encounter Plan of Treatment Not on file documented as of this encounter Visit Diagnoses Diagnosis Vaccine for influenza- Primary Need for prophylactic vaccination and inoculation against influenza documented in this encounter Additional Health Concerns Infection Onset Date Last Indicated Resolved Time R/O COVID-19 10/21/2020 10/21/2020 10/28/2021 9:17 PM JUSTICE PROFESSOR documented as of this encounter Care Teams Travel Insurance Agent Relationship Specialty Start Date End Date Jean Gibbons MD [address] [address] PCP - General Family Practice 04/09/18 documented as of this encounter
--- OUTSIDE RECORDS SUMMARY | 2025-07-16 13:09 | XMS_ITS | Encounter Summary ---
Author Organization [facility] Address [address] [place] [address] Care Team Providers Care Highway Research Engineer Name Role Phone Jean Gibbons MD Primary Care Provider [phone] [phone] Encounter Details Date Type Department Care Team (Latest Contact Info) Description 06/07/2007 Outpatient Historical [facility] Medicine [place] [address] [address] Deanna Parada NP NO ADDRESS ON FILE Other Malaise and Fatigue (Primary Dx); Anxiety State, Unspecified; Abdominal Pain, Epigastric; Nonspecific Abnormal Electrocardiogram (ECG) (EKG) Social History Tobacco Use Types Packs/Day Years Used Date Smoking Tobacco: Never Assessed Comments Unknown Sex and Gender Information Value Date Recorded Sex Assigned at Not on file Legal Sex Female 4:08 AM TWISTER OPERATOR Gender Identity Not on file Sexual [...] R/O COVID-19 10/21/2020 10/21/2020 10/28/2021 9:17 PM TWISTER OPERATOR documented as of this encounter Care Teams Highway Research Engineer Relationship Specialty Start Date End Date Jean Gibbons MD [address] [phone] PCP - General Family Practice 04/09/18 documented as of this encounter
--- OUTSIDE RECORDS SUMMARY | 2025-07-16 13:09 | XMS_ITS ---
Author Organization [facility] Address [address] [facility] [address] [place] [address] Care Team Providers Care Bungy Jump Master Name Role Phone Jean Gibbons MD Primary Care Provider +1 [phone] Active Problems Problem Noted Date Diagnosed Date [...] spine with radiculopathy, cerv ical region 12/26/2018 senior care prescription opiate use 07/02/2018 Spinal stenosis of [...]
--- OUTSIDE RECORDS SUMMARY | 2025-07-16 13:09 | XMS_ITS | Encounter Summary ---
Author Organization [facility] Address [address] [place] [address] Care Team Providers Care Associate Professor Of Education Name Role Phone Jean Gibbons MD Primary Care Provider +1 -[phone] Encounter Details Date Type Department Care Team (Late st Contact Info) Description 04/15/2008 Outpatient Historical [facility] Hema Hong MD [address] [place] [address] Social History Tobacco Use Types Packs/Day Years Used Date Smoking Tobacco: Never Assessed Comments No Sex and Gender Information Value Date Recorded Sex Assigned at Not on file Legal Sex Female 4:08 AM DOCTOR OF NURSE ANESTHESIA Gender Identity Not on file Sexual Orientation Not on file documented as of this encounter Plan of Treatment Not on file documented as of this encounter Visit Diagnoses Not on filedocumented in this encounter Additional Health Concerns Infection Onset Date Last Indicated Resolved Time R/O COVID-19 10/21/2020 10/21/2020 10/28/2021 9:17 PM DOCTOR OF NURSE ANESTHESIA documented as of this encounter Care Teams Associate Professor Of Education Relationship Specialty Start Date End Date Jean Gibbons MD [address] [place] [phone] PCP - General Family Practice 04/09/18 documented as of this encounter
--- OUTSIDE RECORDS SUMMARY | 2025-07-16 13:10 | XMS_ITS | Encounter Summary ---
Author Organization [facility] Address [address] [place] [address] Care Team Providers Care Ip Litigation Paralegal Name Role Phone Jean Gibbons MD Primary Care Provider +1 [phone] Encounter Details Date Type Department Care Team (Late st Contact Info) Description 07/10/2003 Outpatient Historical [facility] Medicine [place] [address] [address] Deanna Parada NP NO ADDRESS ON FILE Social History Tobacco Use Types Packs/Day Years Used Date Smoking Tobacco: Never Assessed Comments Unknown Sex and Gender Information Value Date Recorded Sex Assigned at Not on file Legal Sex Female 4:08 AM EXECUTIVE SOUS CHEF Gender Identity Not on file Sexual Orientation Not on file documented as of this encounter Plan of Treatment Not on file documented as of this encounter Visit Diagnoses Not on filedocumented in this encounter Additional Health Concerns Infection Onset Date Last Indicated Resolved Time R/O COVID-19 10/21/2020 10/21/2020 10/28/2021 9:17 PM EXECUTIVE SOUS CHEF documented as of this encounter Care Teams Ip Litigation Paralegal Relationship Specialty Start Date End Date Jean Gibbons MD [address] [facility] [address] [place] [address] PCP - General Family Practice 04/09/18 documented as of this encounter
--- OUTSIDE RECORDS SUMMARY | 2025-07-16 13:10 | XMS_ITS | Encounter Summary ---
Author Organization [facility] Address [address] [place] [address] Care Team Providers Care Central Sterile Technician Name Role Phone Jean Gibbons MD Primary Care Provider +1 -[phone] Encounter Details Date Type Department Care Team (Latest Contact Info) Description 04/27/2004 Outpatient Historical [facility] Medicine [address] [address] Nicolas Parks PA NO ADDRESS ON FILE ALLERGY, UNSPECIFIED (Primary Dx); DEPRESSIVE DISORDER NEC; JOINT PAIN-UNSPEC Social History Tobacco Use Types Packs/Day Years Used Date Smoking Tobacco: Never Assessed Comments Unknown Sex and Gender Information Value Date Recorded Sex Assigned at Not on file Legal Sex Female 4:08 AM CYLINDER HONER Gender Identity Not on file Sexual Orientation [...] R/O COVID-19 10/21/2020 10/21/2020 10/28/2021 9:17 PM CYLINDER HONER documented as of this encounter Care Teams Central Sterile Technician Relationship Specialty Start Date End Date Jean Gibbons MD [address] [address] PCP - General Family Practice 04/09/18 documented as of this encounter
--- OUTSIDE RECORDS SUMMARY | 2025-07-16 13:10 | XMS_ITS | Encounter Summary ---
Author Organization [facility] Address [address] [place] [address] Care Team Providers Care Well Flow Operator Name Role Phone Jean Gibbons MD Primary Care Provider +1 [phone] Encounter Details Date Type Department Care Team (Latest Contact Info) Description 08/07/2005 Outpatient Historical [facility] Medicine [place] [address] [address] Neo Aceves MD [address] [address] Vaccine for influenza (Primary Dx) Social History Tobacco Use Types Packs/Day Years Used Date Smoking Tobacco: Never Assessed Comments Unknown Sex and Gender Information Value Date Recorded Sex Assigned at Not on file Legal Sex Female 4:08 AM ADVANCED RESEARCH PROGRAMS DIRECTOR Gender Identity Not on file Sexual Orientation Not on file documented as of this encounter Plan of Treatment Not on file documented as of this encounter Visit Diagnoses Diagnosis Vaccine for influenza- Primary Need for prophylactic vaccination and inoculation against influenza documented in this encounter Additional Health Concerns Infection Onset Date Last Indicated Resolved Time R/O COVID-19 10/21/2020 10/21/2020 10/28/2021 9:17 PM ADVANCED RESEARCH PROGRAMS DIRECTOR documented as of this encounter Care Teams Well Flow Operator Relationship Specialty Start Date End Date Jean Gibbons MD [address] [phone] PCP - General Family Practice 04/09/18 documented as of this encounter
--- OUTSIDE RECORDS SUMMARY | 2025-07-16 13:10 | XMS_ITS | Encounter Summary ---
Author Organization [facility] Address [address] [place] [address] Care Team Providers Care Health Analyst Name Role Phone Jean Gibbons MD Primary Care Provider +1 -[phone] Encounter Details Date Type Department Care Team (Latest Contact Info) Description 07/10/2003 Outpatient Historical [facility] Medicine [address] [address] Ben Winters DO NO ADDRESS ON FILE ORAL APHTHAE (Primary Dx); ACUTE PHARYNGITIS; ACUTE BRONCHITIS; ARTERITIS NOS Social History Tobacco Use Types Packs/Day Years Used Date Smoking Tobacco: Never Assessed Comments Unknown Sex and Gender Information Value Date Recorded Sex Assigned at Not on file Legal Sex Female 4:08 AM SUPERVISOR DRILLING AND SHOOTING Gender Identity Not on file Sexual Orientation Not on file documented as of this encounter Plan of Treatment Not on file documented as of this encounter Visit Diagnoses Diagnosis Oral aphthae- Primary Acute pharyngitis Acute bronchitis Arteritis, unspecified documented in this encounter Additional Health Concerns Infection Onset Date Last Indicated Resolved Time R/O COVID-19 10/21/2020 10/21/2020 10/28/2021 9:17 PM SUPERVISOR DRILLING AND SHOOTING documented as of this encounter Care Teams Health Analyst Relationship Specialty Start Date End Date Jean Gibbons MD [address] [address] PCP - General Family Practice 04/09/18 documented as of this encounter
--- OUTSIDE RECORDS SUMMARY | 2025-07-16 13:10 | XMS_ITS | Encounter Summary ---
Author Organization [facility] Address [address] [place] [address] Care Team Providers Care Jacket Changer Name Role Phone Jean Gibbons MD Primary Care Provider +1 [phone] Encounter Details Date Type Department Care Team (Latest Contact Info) Description 04/09/2003 Outpatient Historical [facility] Medicine [address] [address] Kamini Gallegos MD NO ADDRESS ON FILE BACKACHE NOS (Primary Dx); SPASM OF MUSCLE; ACUTE PHARYNGITIS; ALLERGIC RHINITIS NOS Social History Tobacco Use Types Packs/Day Years Used Date Smoking Tobacco: Never Assessed Comments Unknown Sex and Gender Information Value Date Recorded Sex Assigned at Not on file Legal Sex Female 4:08 AM CORRECTION OFFICER SUPERVISOR Gender Identity Not on file Sexual Orientation Not on file documented as of this encounter Plan of Treatment Not on file documented as of this encounter Visit Diagnoses Diagnosis Backache, unspecified- Primary Spasm of muscle Acute pharyngitis Allergic rhinitis, cause unspecified documented in this encounter Additional Health Concerns Infection Onset Date Last Indicated Resolved Time R/O COVID-19 10/21/2020 10/21/2020 10/28/2021 9:17 PM CORRECTION OFFICER SUPERVISOR documented as of this encounter Care Teams Jacket Changer Relationship Specialty Start Date End Date Jean Gibbons MD [address] [address] PCP - General Family Practice 04/09/18 documented as of this encounter
--- OUTSIDE RECORDS SUMMARY | 2025-07-16 13:10 | XMS_ITS | Encounter Summary ---
Author Organization [facility] Address [address] [place] [address] Care Team Providers Care Special Education Instructor Name Role Phone Jean Gibbons MD Primary Care Provider +1 [phone] Encounter Details Date Type Department Care Team (Latest Contact Info) Description 11/26/1998 Outpatient Historical [facility] Endocrinology-[place] Gavino Diallo [address] [place] [address] Mine Tucker MD [address], [place] [id number] Thyrotoxicosis without mention of goiter or other cause, without mention of thyrotoxic crisis or storm (Primary Dx) Social History Tobacco Use Types Packs/Day Years Used Date Smoking Tobacco: Never Assessed Comments Unknown Sex and Gender Information Value Date Recorded Sex Assigned at Not on file Legal Sex Female 4:08 AM RADIOLOGY ASST Gender Identity Not on file Sexual Orientation [...] R/O COVID-19 10/21/2020 10/21/2020 10/28/2021 9:17 PM RADIOLOGY ASST documented as of this encounter Care Teams Special Education Instructor Relationship Specialty Start Date End Date Jean Gibbons MD [address] [place] [phone] PCP - General Family Practice 04/09/18 documented as of this encounter
--- OUTSIDE RECORDS SUMMARY | 2025-07-16 13:10 | XMS_ITS | Encounter Summary ---
Author Organization [facility] Address [address] [place] [address] Care Team Providers Care Mechanical Project Manager Name Role Phone Jean Gibbons MD Primary Care Provider +1 [phone] Encounter Details Date Type Department Care Team (Late st Contact Info) Description 10/04/2002 Inpatient Historical [facility] Theo Rust MD NO ADDRESS ON FILE CHEST PAIN NEC (Primary Dx) Social History Tobacco Use Types Packs/Day Years Used Date Smoking Tobacco: Never Assessed Comments Unknown Sex and Gender Information Value Date Recorded Sex Assigned at Not on file Legal Sex Female 4:08 AM MEDICAL HISTORIAN Gender Identity Not on file Sexual Orientation Not on file documented as of this encounter Plan of Treatment Not on file documented as of this encounter Visit Diagnoses Diagnosis Other chest pain- Primary documented in this encounter Additional Health Concerns Infection Onset Date Last Indicated Resolved Time R/O COVID-19 10/21/2020 10/21/2020 10/28/2021 9:17 PM MEDICAL HISTORIAN documented as of this encounter Care Teams Mechanical Project Manager Relationship Specialty Start Date End Date Jean Gibbons MD [address] [place] [address] PCP - General Family Practice 04/09/18 documented as of this encounter
--- OUTSIDE RECORDS SUMMARY | 2025-07-16 13:10 | XMS_ITS | Encounter Summary ---
Author Organization [facility] Address [address] [place] [address] Care Team Providers Care Director Of Research Name Role Phone Jean Gbibons MD Primary Care Provider +1 [phone] Encounter Details Date Type Department Care Team (Latest Contact Info) Description 07/26/2004 Outpatient Historical [facility] Medicine [place] [address] [address] Deanna Parada NP NO ADDRESS ON FILE PNEUMONIA, ORGANISM NOS (Primary Dx); Diverticulosis of colon Social History Tobacco Use Types Packs/Day Years Used Date Smoking Tobacco: Never Assessed Comments Unknown Sex and Gender Information Value Date Recorded Sex Assigned at Not on file Legal Sex Female 4:08 AM EMBROIDERY ASSISTANT Gender Identity Not on file Sexual Orientation [...] R/O COVID-19 10/21/2020 10/21/2020 10/28/2021 9:17 PM EMBROIDERY ASSISTANT documented as of this encounter Care Teams Director Of Research Relationship Specialty Start Date End Date Jean Gibbons MD [address] [address] PCP - General Family Practice 04/09/18 documented as of this encounter
--- OUTSIDE RECORDS SUMMARY | 2025-07-16 13:10 | XMS_ITS | Encounter Summary ---
Author Organization [facility] Address [address] [place] [address] Care Team Providers Care Voip Network Engineer Name Role Phone Jean Gibbons MD Primary Care Provider +1 [phone] Encounter Details Date Type Department Care Team (Late st Contact Info) Description 10/19/2003 Outpatient Historical [facility] Medicine [place] [address] [address] Neo Aceves MD [address] [phone] Social History Tobacco Use Types Packs/Day Years Used Date Smoking Tobacco: Never Assessed Comments Unknown Sex and Gender Information Value Date Recorded Sex Assigned at Not on file Legal Sex Female 4:08 AM FINANCIAL ASSISTANT Gender Identity Not on file Sexual Orientation Not on file documented as of this encounter Plan of Treatment Not on file documented as of this encounter Visit Diagnoses Not on filedocumented in this encounter Additional Health Concerns Infection Onset Date Last Indicated Resolved Time R/O COVID-19 10/21/2020 10/21/2020 10/28/2021 9:17 PM FINANCIAL ASSISTANT documented as of this encounter Care Teams Voip Network Engineer Relationship Specialty Start Date End Date Jean Gibbons MD [address] [address] PCP - General Family Practice 04/09/18 documented as of this encounter
--- OUTSIDE RECORDS SUMMARY | 2025-07-16 13:10 | XMS_ITS | Encounter Summary ---
Author Organization [facility] Address [address] [place] [address] Care Team Providers Care Striping Machine Operator Name Role Phone Jean Gibbons MD Primary Care Provider +1 [phone] Encounter Details Date Type Department Care Team (Latest Contact Info) Description 08/12/2004 Outpatient Historical [facility] Medicine [place] [address] [address] Neo Aceves MD [address] [address] Vaccine for influenza (Primary Dx) Social History Tobacco Use Types Packs/Day Years Used Date Smoking Tobacco: Never Assessed Comments Unknown Sex and Gender Information Value Date Recorded Sex Assigned at Not on file Legal Sex Female 4:08 AM SMOKING PIPE MOUNTER Gender Identity Not on file Sexual Orientation Not on file documented as of this encounter Plan of Treatment Not on file documented as of this encounter Visit Diagnoses Diagnosis Vaccine for influenza- Primary Need for prophylactic vaccination and inoculation against influenza documented in this encounter Additional Health Concerns Infection Onset Date Last Indicated Resolved Time R/O COVID-19 10/21/2020 10/21/2020 10/28/2021 9:17 PM SMOKING PIPE MOUNTER documented as of this encounter Care Teams Striping Machine Operator Relationship Specialty Start Date End Date Jean Gibbons MD [address] [phone] PCP - General Family Practice 04/09/18 documented as of this encounter
--- OUTSIDE RECORDS SUMMARY | 2025-07-16 13:10 | XMS_ITS | Encounter Summary ---
Author Organization [facility] Address [address] [place] [address] Care Team Providers Care Drip Molder Name Role Phone Jean Gibbons MD Primary Care Provider +1 [phone] Encounter Details Date Type Department Care Team (Late st Contact Info) Description 11/26/1998 Outpatient Historical [facility] Imaging Services-[place] Gavino Diallo [address] [place] [address] Alberto Glass MD [address] [place] [address] Periostitis, without mention of osteomyelitis, unspecified site (CMS/HCC) (Primary Dx) Social History Tobacco Use Types Packs/Day Years Used Date Smoking Tobacco: Never Assessed Comments Unknown Sex and Gender Information Value Date Recorded Sex Assigned at Not on file Legal Sex Female 4:08 AM APPRENTICE PAINTER NECKTIES Gender Identity Not on file Sexual Orientation [...] R/O COVID-19 10/21/2020 10/21/2020 10/28/2021 9:17 PM APPRENTICE PAINTER NECKTIES documented as of this encounter Care Teams Drip Molder Relationship Specialty Start Date End Date Jean Gibbons MD [address] [place] [address] PCP - General Family Practice 04/09/18 documented as of this encounter
--- OUTSIDE RECORDS SUMMARY | 2025-07-16 13:10 | XMS_ITS | Encounter Summary ---
Author Organization [facility] Address [address] [place] [address] Care Team Providers Care Popcorn Candy Maker Name Role Phone Jean Gibbons MD Primary Care Provider +1 [phone] Encounter Details Date Type Department Care Team (Latest Contact Info) Description 02/08/2004 Outpatient Historical [facility] Medicine [place] [address] [address] Ben Winters DO NO ADDRESS ON FILE EDEMA (Primary Dx); LUMBAGO; HYPOTHYROIDISM NOS Social History Tobacco Use Types Packs/Day Years Used Date Smoking Tobacco: Never Assessed Comments Unknown Sex and Gender Information Value Date Recorded Sex Assigned at Not on file Legal Sex Female 4:08 AM BRILLIANDEER LOPPER Gender Identity Not on file Sexual Orientation Not on file documented as of this encounter Plan of Treatment Not on file documented as of this encounter Visit Diagnoses Diagnosis Edema- Primary Lumbago Unspecified hypothyroidism documented in this encounter Additional Health Concerns Infection Onset Date Last Indicated Resolved Time R/O COVID-19 10/21/2020 10/21/2020 10/28/2021 9:17 PM BRILLIANDEER LOPPER documented as of this encounter Care Teams Popcorn Candy Maker Relationship Specialty Start Date End Date Jean Gibbons MD [address] [address] PCP - General Family Practice 04/09/18 documented as of this encounter
--- OUTSIDE RECORDS SUMMARY | 2025-07-16 13:10 | XMS_ITS | Encounter Summary ---
Author Organization [facility] Address [address] [place] [address] Care Team Providers Care Epic Director Name Role Phone Jean Gibbons MD Primary Care Provider +1 [phone] Encounter Details Date Type Department Care Team (Latest Contact Info) Description 12/29/1999 Outpatient Historical [facility] Podiatry[facility] Diallo [address] [place] [address] David Bailey, DPM NO ADDRESS ON FILE Hallux valgus (Primary Dx) Social History Tobacco Use Types Packs/Day Years Used Date Smoking Tobacco: Never Assessed Comments Unknown Sex and Gender Information Value Date Recorded Sex Assigned at Not on file Legal Sex Female 4:08 AM ELEVATOR REPAIR MECHANIC Gender Identity Not on file Sexual Orientation Not on file documented as of this encounter Plan of Treatment Not on file documented as of this encounter Visit Diagnoses Diagnosis Hallux valgus- Primary Hallux valgus (acquired) documented in this encounter Additional Health Concerns Infection Onset Date Last Indicated Resolved Time R/O COVID-19 10/21/2020 10/21/2020 10/28/2021 9:17 PM ELEVATOR REPAIR MECHANIC documented as of this encounter Care Teams Epic Director Relationship Specialty Start Date End Date Jean Gibbons MD [address] [place] [address] PCP - General Family Practice 04/09/18 documented as of this encounter
--- OUTSIDE RECORDS SUMMARY | 2025-07-16 13:10 | XMS_ITS | Encounter Summary ---
Author Organization [facility] Address [address] [place] [address] Care Team Providers Care Trailer Steerer Name Role Phone Jean Gibbons MD Primary Care Provider +1 [phone] Encounter Details Date Type Department Care Team (Late st Contact Info) Description 04/20/2000 Outpatient Historical [facility] Mine Tucker MD [address] [place] [address] Thyrotoxicosis without mention of goiter or other cause, without mention of thyrotoxic crisis or storm (Primary Dx) Social History Tobacco Use Types Packs/Day Years Used Date Smoking Tobacco: Never Assessed Comments Unknown Sex and Gender Information Value Date Recorded Sex Assigned at Not on file Legal Sex Female 4:08 AM STRUCTURAL ARCHITECT Gender Identity Not on file Sexual [...] R/O COVID-19 10/21/2020 10/21/2020 10/28/2021 9:17 PM STRUCTURAL ARCHITECT documented as of this encounter Care Teams Trailer Steerer Relationship Specialty Start Date End Date Jean Gibbons MD [address] [place] [address] PCP - General Family Practice 04/09/18 documented as of this encounter
--- OUTSIDE RECORDS SUMMARY | 2025-07-16 13:10 | XMS_ITS | Encounter Summary ---
Author Organization [facility] Address [address] [place] [address] Care Team Providers Care Environmental Monitoring Technician Name Role Phone Jean Gibbons MD Primary Care Provider +1 -[phone] Encounter Details Date Type Department Care Team (Latest Contact Info) Description 09/24/1998 Outpatient Historical [facility] Endocrinology-[place]l Gavino Diallo [address] [place] [address] Mine Tucker MD [address] [place], [place] [id number] Thyrotoxicosis without mention of goiter or other cause, without mention of thyrotoxic crisis or storm (Primary Dx) Social History Tobacco Use Types Packs/Day Years Used Date Smoking Tobacco: Never Assessed Comments Unknown Sex and Gender Information Value Date Recorded Sex Assigned at Not on file Legal Sex Female 4:08 AM RECYCLING ATTENDANT Gender Identity Not on file Sexual Orientation [...] R/O COVID-19 10/21/2020 10/21/2020 10/28/2021 9:17 PM RECYCLING ATTENDANT documented as of this encounter Care Teams Environmental Monitoring Technician Relationship Specialty Start Date End Date Jean Gibbons MD [address] [place] [address] PCP - General Family Practice 04/09/18 documented as of this encounter
--- OUTSIDE RECORDS SUMMARY | 2025-07-16 13:10 | XMS_ITS | Encounter Summary ---
Author Organization [facility] Address [address] [place] [address] Care Team Providers Care Utilities And Maintenance Supervisor Name Role Phone Jean Gibbons MD Primary Care Provider +1 [phone] Reason for Visit * Reason Onset Date Comments Results 07/15/2025 Encounter Details Date Type Department Care Team (Latest Contact Info) Description 07/15/2025 Results Follow-Up [facility] Family Medicine [address] [address] Jean Gibbons MD [address] [address] COMPREHENSIVE METABOLIC PANEL, TSH, T4 FREE, CBC WITH DIFFERENTIAL Social History Tobacco Use Types Packs/Day Years [...] on file Legal Sex Female 4:19 AM EMT DRIVER Gender Identity Not on file Sexual Orientation Not on file documented as of this encounter Miscellaneous Notes * Telephone Encounter - Karen Cervantes, RN - 07/15/2025 1:13 PM CDT ----- Message from Dr. Jean Gibbons sent at 07/15/2025 11:58 AM CDT ----- Blood count shows improved anemia, kidney function stable and at baseline, somewhat improved compared to prior, thyroid level looks good, continue current medications. ----- Message ----- From: Eran Mina Incoming [facility] Results Sent: 06/16/2025 9:07 AM CDT To: Jean Gibbons MD documented in this encounter Plan of Treatment Upcoming Encounters Date Type Department Care Team (Late st Contact Info) Description 07/21/2025 3:00 PM CDT Video Visit [facility] Medicine [place] [address] [address] Jean Gibbons MD [address] [place] [address] documented as of this encounter Goals Goal Patient Goal Type Associated Problems Recent Progress Patient-Stated? Author Heart Failure Goal Care Plan Heart Failure Problem No Wendy, [place] Heart Failure Goal Care Plan Heart Failure Problem No Wendy, [place] Heart Failure Goal Care Plan Heart Failure Problem No [place], Judy, [employer] Heart Failure Goal Care Plan Heart Failure Problem No [place], Judy, [employer] Heart Failure Goal Care Plan Heart Failure Problem No [place], Judy, [employer] Heart Failure Goal Care Plan Heart Failure Problem No [place], Judy, [employer] Heart Failure Goal Care Plan Heart Failure Problem No [place], Judy, [employer] Heart Failure Goal Care Plan Heart Failure Problem No [place], Judy, [employer] Heart Failure Goal Care Plan Heart Failure Problem No [place], Judy, [employer] Heart Failure Goal Care Plan Heart Failure Problem No [place], Judy, [employer] Heart Failure Goal Care Plan Heart Failure Problem No [place], Judy, [employer] Heart Failure Goal Care Plan Heart Failure Problem No [place], Judy, [employer] Heart Failure Goal Care Plan Heart Failure Problem No [place], Judy, [employer] Heart Failure Goal Care Plan Heart Failure Problem No [place], Judy, [employer] Heart Failure Goal Care Plan Heart Failure Problem No [place], Judy, [employer] Heart Failure Goal Care Plan Heart Failure Problem No Mele, Peyton M, [employer] Heart Failure Goal Care Plan Heart Failure Problem No Cervantes, Zaalia K, [employer] Heart Failure Goal Care Plan Heart Failure Problem No Cervantes, Azalia K, ENROLLMENT SERVICES [employer] Heart Failure Goal Care Plan Heart Failure Problem No Mele, Peyton M, [employer] Heart Failure Goal Care Plan Heart Failure Problem No Mele, Peyton M, E[employer]OLLMENT SERVICES [employer] Heart Failure Goal Care Plan Heart Failure Problem No Mele, Peyton M, E[employer]LLMENT [employer] Heart Failure Goal Care Plan Heart Failure Problem No Mele, Peyton M, [employer]MENT [employer] Heart Failure Goal Care Plan Heart Failure Problem No Mele, Peyton M, E[employer]LLMENT [employer] Heart Failure Goal Care Plan Heart Failure Problem No Mele, Peyton M, E[employer]OLLMENT SERVICES [employer] Heart Failure Goal Care Plan Heart Failure Problem No Mele, Peyton M, [employer] Heart Failure Goal Care Plan Heart Failure Problem No Mele, Peyton M, E[employer]LLMENT SERVICES [employer] Heart Failure Goal Care Plan Heart Failure Problem No Mele, Peyton M, E[employer]OLLMENT SERVICES [employer] Heart Failure Goal Care Plan Heart Failure Problem No Mele, Peyton M, [employer] Heart Failure Goal Care Plan Heart Failure Problem No Mele, Peyton M, E[employer]LLMENT SERVICES [employer] Heart Failure Goal Care Plan Heart Failure Problem No Mele, Peyton M, ENROLLMENT SERVICES DEAN Heart Failure Goal Care Plan Heart Failure Problem No Mele, Peyton M, [employer]MENT SERVICES [employer] Heart Failure Goal Care Plan Heart Failure Problem No Mele, Peyton M, ENROLLMENT SERVICES DEAN Heart Failure Goal Care Plan Heart Failure Problem No Mele, Peyton M, ENROLLMENT SERVICES DEAN Heart Failure Goal Care Plan Heart Failure Problem No Mele, Peyton M, ENROLLMENT SERVICES DEAN Heart Failure Goal Care Plan Heart Failure [...] Heart Failure Problem No Mele, Peyton M, E[employer]OLLMENT SERVICES [employer] Heart Failure Goal Care Plan Heart Failure Problem No Mele, Peyton M, E[employer]OLLMENT SERVICES [employer] Heart Failure Goal Care Plan Heart Failure [...] documented as of this encounter Care Teams Utilities And Maintenance Supervisor Relationship Specialty Start Date End Date Jean Gibbons MD [address] [phone] PCP - General Family Practice 04/09/18 documented as of this encounter
--- OUTSIDE RECORDS SUMMARY | 2025-07-16 13:10 | XMS_ITS | Encounter Summary ---
Author Organization [facility] Address [address] [place] [address] Care Team Providers Care Crew Supervisor Name Role Phone Jean Gibbons MD Primary Care Provider +1 [phone] Reason for Referral * Outpatient Services (Routine) - Closed Specialty Diagnoses / Procedures Referred By Mack t Referred To Contact Radiology Diagnoses Breast tenderness in female Procedures MAMMO DIAGNOSTIC BILATERAL W OR WO CAD MAMMO DIAG BILAT 3D SHAI W OR WO CAD MAMMO DIAGNOSTIC BILATERAL W OR WO CAD Amberly Lima FNP Phone: tel: fax: [facility] Breast [place] [address] [facility] [address] [place] [address] Phone: tel: fax: Referral ID Status Reason Start Date Expiration Date V isits Requested Visits Authorized [id number] Closed F MC TO SCHEDULE (SG) 04/04/2018 05/05/2019 1 1 Encounter Details Date Type Department Care Team (Late st Contact Info) Description 05/01/2018 Ancillary Orders [facility] Family Medicine [place] [address] [facility] [address] [place] [address] Amberly Lima FNP [address] [place] [address] Breast tenderness in female Social History Tobacco Use Types Packs/Day Years Used Date Smoking Tobacco: Former Cigarettes Q uit: 08/12/1990 Smokeless Tobacco: Never Comments:quit in the Alcohol Use Standard Drinks/Week Comments No 0 (1 standard drink = 0.6 oz pur e alcohol) Comments No Sex and Gender Information Value Date Recorded Sex Assigned at Not on file Legal Sex Female 4:08 AM SENIOR IT ARCHITECT Gender Identity Not on file Sexual [...] also recommended. Patient received a result/recommendation letter. [id number] Narrative 05/03/2018 9:22 AM CDT EXAM: MAMMO DIAGNOSTIC BILATERAL W OR WO CAD, MAMMO BREAST US BILAT [facility] INDICATION: 72-year-old female presents with tenderness and [...] cm from the nipple. us Amberly Lima [employer] MAMMO ORDERABLES Final Result documented in this encounter Visit Diagnoses Diagnosis Breast tenderness in female Mastodynia Breast tenderness in female Mastodynia documented in this encounter Additional Health Concerns Infection Onset Date Last Indicated Resolved Time R/O COVID-19 10/21/2020 10/21/2020 10/28/2021 9:17 PM SENIOR IT ARCHITECT Assessment Noted Time PHQ-9 Depression Total Score: 1 01/01/20 18 11:00 AM SENIOR IT ARCHITECT documented as of this encounter Care Teams Crew Supervisor Relationship Specialty Start Date End Date Jean Gibbons MD [address] [address] PCP - General Family Practice 04/09/18 documented as of this encounter
--- OUTSIDE RECORDS SUMMARY | 2025-07-16 13:10 | XMS_ITS | Encounter Summary ---
Author Organization [facility] Address [address] [place] [address] Care Team Providers Care Associate Director Of Development Name Role Phone Jean Gibbons MD Primary Care Provider +1 [phone] Encounter Details Date Type Department Care Team (Latest Contact Info) Description 04/20/2000 Outpatient Historical [facility] Podiatry[facility] Dial[place] [address] [place] [address] David Bailey, DPM NO ADDRESS ON FILE Hallux valgus (Primary Dx) Social History Tobacco Use Types Packs/Day Years Used Date Smoking Tobacco: Never Assessed Comments Unknown Sex and Gender Information Value Date Recorded Sex Assigned at Not on file Legal Sex Female 4:08 AM MANAGER UNIVERSAL Gender Identity Not on file Sexual Orientation Not on file documented as of this encounter Plan of Treatment Not on file documented as of this encounter Visit Diagnoses Diagnosis Hallux valgus- Primary Hallux valgus (acquired) documented in this encounter Additional Health Concerns Infection Onset Date Last Indicated Resolved Time R/O COVID-19 10/21/2020 10/21/2020 10/28/2021 9:17 PM MANAGER UNIVERSAL documented as of this encounter Care Teams Associate Director Of Development Relationship Specialty Start Date End Date Jean Gibbons MD [address] [place] [address] PCP - General Family Practice 04/09/18 documented as of this encounter
--- OUTSIDE RECORDS SUMMARY | 2025-07-16 13:10 | XMS_ITS | Encounter Summary ---
Author Organization [facility] Address [address] [place] [address] Care Team Providers Care Hr Receptionist Name Role Phone Jean Gibbons MD Primary Care Provider +1 [phone] Encounter Details Date Type Department Care Team (Late st Contact Info) Description 03/22/2005 Outpatient Historical [facility] 06 Ben Winters DO NO ADDRESS ON FILE Social History Tobacco Use Types Packs/Day Years Used Date Smoking Tobacco: Never Assessed Comments Unknown Sex and Gender Information Value Date Recorded Sex Assigned at Not on file Legal Sex Female 4:08 AM DANCE STUDIO MANAGER Gender Identity Not on file Sexual [...] R/O COVID-19 10/21/2020 10/21/2020 10/28/2021 9:17 PM DANCE STUDIO MANAGER documented as of this encounter Care Teams Hr Receptionist Relationship Specialty Start Date End Date Jean Gibbons MD [address] [address] PCP - General Family Practice 04/09/18 documented as of this encounter
--- OUTSIDE RECORDS SUMMARY | 2025-07-16 13:10 | XMS_ITS | Encounter Summary ---
Author Organization [facility] Address [address] [place] [address] Care Team Providers Care Consumer Studies Professor Name Role Phone Jean Gibbons MD Primary Care Provider +1 -[phone] Encounter Details Date Type Department Care Team (Latest Contact Info) Description 10/19/2000 Outpatient Historical [facility] Podiatry-[facility] [place] [address] [place] [address] David Bailey DPM NO ADDRESS ON FILE Hallux valgus (Primary Dx); Other acquired deformity of ankle and foot(736.79) Social History Tobacco Use Types Packs/Day Years Used Date Smoking Tobacco: Never Assessed Comments Unknown Sex and Gender Information Value Date Recorded Sex Assigned at Not on file Legal Sex Female 4:08 AM TAR WORKER Gender Identity Not on file Sexual [...] R/O COVID-19 10/21/2020 10/21/2020 10/28/2021 9:17 PM TAR WORKER documented as of this encounter Care Teams Consumer Studies Professor Relationship Specialty Start Date End Date Jean Gibbons MD [address] [place] [phone] PCP - General Family Practice 04/09/18 documented as of this encounter
--- OUTSIDE RECORDS SUMMARY | 2025-07-16 13:10 | XMS_ITS | Encounter Summary ---
Author Organization [facility] Address [address] [place] [address] Care Team Providers Care Tow Truck Operator Name Role Phone Jean Gibbons MD Primary Care Provider +1 -[phone] Encounter Details Date Type Department Care Team (Latest Contact Info) Description 08/31/2003 Outpatient Historical [facility] Medicine [address] [address] Ben Winters DO NO ADDRESS ON FILE MYALGIA AND MYOSITIS NOS (Primary Dx); Sprain of neck; OSTEOARTHROS NOS-UNSPEC Social History Tobacco Use Types Packs/Day Years Used Date Smoking Tobacco: Never Assessed Comments Unknown Sex and Gender Information Value Date Recorded Sex Assigned at Not on file Legal Sex Female 4:08 AM CARDBOARD INSERTER Gender Identity Not on file Sexual Orientation [...] R/O COVID-19 10/21/2020 10/21/2020 10/28/2021 9:17 PM CARDBOARD INSERTER documented as of this encounter Care Teams Tow Truck Operator Relationship Specialty Start Date End Date Jean Gibbons MD [address] [facility] [address] [place] [address] PCP - General Family Practice 04/09/18 documented as of this encounter
--- OUTSIDE RECORDS SUMMARY | 2025-07-16 13:10 | XMS_ITS | Encounter Summary ---
Author Organization [facility] Address [address] [place] [address] Care Team Providers Care Radiology Assistant Name Role Phone Jean Gibbons MD Primary Care Provider +1 [phone] Encounter Details Date Type Department Care Team (Latest Contact Info) Description 12/07/1999 Outpatient Historical [facility] Podiatry-[facility] [place] [address] [place] [address] David Bailey, DPM NO ADDRESS ON FILE Hallux valgus (Primary Dx) Social History Tobacco Use Types Packs/Day Years Used Date Smoking Tobacco: Never Assessed Comments Unknown Sex and Gender Information Value Date Recorded Sex Assigned at Not on file Legal Sex Female 4:08 AM PLAIN GOODS HEMMER Gender Identity Not on file Sexual Orientation Not on file documented as of this encounter Plan of Treatment Not on file documented as of this encounter Visit Diagnoses Diagnosis Hallux valgus- Primary Hallux valgus (acquired) documented in this encounter Additional Health Concerns Infection Onset Date Last Indicated Resolved Time R/O COVID-19 10/21/2020 10/21/2020 10/28/2021 9:17 PM PLAIN GOODS HEMMER documented as of this encounter Care Teams Radiology Assistant Relationship Specialty Start Date End Date Jean Gibbons MD [address] [place] [address] PCP - General Family Practice 04/09/18 documented as of this encounter
--- OUTSIDE RECORDS SUMMARY | 2025-07-16 13:10 | XMS_ITS | Encounter Summary ---
Author Organization [facility] Address [address] [place] [address] Care Team Providers Care Infant Teacher Name Role Phone Jean Gibbons MD Primary Care Provider +1 [phone] Encounter Details Date Type Department Care Team (Latest Contact Info) Description 02/08/2004 Outpatient Historical [facility] Medicine [place] [address] [address] Ben Winters DO NO ADDRESS ON FILE EDEMA (Primary Dx) Social History Tobacco Use Types Packs/Day Years Used Date Smoking Tobacco: Never Assessed Comments Unknown Sex and Gender Information Value Date Recorded Sex Assigned at Not on file Legal Sex Female 4:08 AM MACHINE FILLER SHREDDER Gender Identity Not on file Sexual Orientation Not on file documented as of this encounter Plan of Treatment Not on file documented as of this encounter Visit Diagnoses Diagnosis Edema- Primary documented in this encounter Additional Health Concerns Infection Onset Date Last Indicated Resolved Time R/O COVID-19 10/21/2020 10/21/2020 10/28/2021 9:17 PM MACHINE FILLER SHREDDER documented as of this encounter Care Teams Infant Teacher Relationship Specialty Start Date End Date Jean Gibbons MD [address] [address] PCP - General Family Practice 04/09/18 documented as of this encounter
--- OUTSIDE RECORDS SUMMARY | 2025-07-16 13:10 | XMS_ITS | Encounter Summary ---
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
--- OUTSIDE RECORDS SUMMARY | 2025-07-16 13:10 | XMS_ITS | Encounter Summary ---
Author Organization [facility] Address [address] [place] [address] Care Team Providers Care Photovoltaic Solar Cell Designer Name Role Phone Jean Gibbons MD Primary Care Provider +1 [phone] Encounter Details Date Type Department Care Team (Latest Contact Info) Description 10/04/2002 Outpatient Historical [facility] [address] [place] [address] Non-Staff, Physician NO ADDRESS ON FILE CHEST PAIN NOS (Primary Dx) Social History Tobacco Use Types Packs/Day Years Used Date Smoking Tobacco: Never Assessed Comments Unknown Sex and Gender Information Value Date Recorded Sex Assigned at Not on file Legal Sex Female 4:08 AM DOOR TO DOOR LEAD GENERATION Gender Identity Not on file Sexual Orientation Not on file documented as of this encounter Plan of Treatment Not on file documented as of this encounter Visit Diagnoses Diagnosis Chest pain, unspecified- Primary documented in this encounter Additional Health Concerns Infection Onset Date Last Indicated Resolved Time R/O COVID-19 10/21/2020 10/21/2020 10/28/2021 9:17 PM DOOR TO DOOR LEAD GENERATION documented as of this encounter Care Teams Photovoltaic Solar Cell Designer Relationship Specialty Start Date End Date Jean Gibbons MD [address] [place] [address] PCP - General Family Practice 04/09/18 documented as of this encounter
--- OUTSIDE RECORDS SUMMARY | 2025-07-16 13:10 | XMS_ITS | Encounter Summary ---
Author Organization 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
--- OUTSIDE RECORDS SUMMARY | 2025-07-16 13:10 | XMS_ITS | Encounter Summary ---
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
--- OUTSIDE RECORDS SUMMARY | 2025-07-16 13:10 | XMS_ITS | Encounter Summary ---
Author Organization [facility] Address [address] [place] [address] Care Team Providers Care Book Trimmer Name Role Phone Jean Gibbons MD Primary Care Provider +1 [phone] Encounter Details Date Type Department Care Team (Late st Contact Info) Description 03/13/2003 Outpatient Historical [facility] FY06 Deanna Parada NP NO ADDRESS ON FILE Social History Tobacco Use Types Packs/Day Years Used Date Smoking Tobacco: Never Assessed Comments Unknown Sex and Gender Information Value Date Recorded Sex Assigned at Not on file Legal Sex Female 4:08 AM INTERNATIONAL TRADE SPECIALIST Gender Identity Not on file Sexual Orientation Not on file documented as of this encounter Plan of Treatment Not on file documented as of this encounter Visit Diagnoses Not on filedocumented in this encounter Additional Health Concerns Infection Onset Date Last Indicated Resolved Time R/O COVID-19 10/21/2020 10/21/2020 10/28/2021 9:17 PM INTERNATIONAL TRADE SPECIALIST documented as of this encounter Care Teams Book Trimmer Relationship Specialty Start Date End Date Jean Gibbons MD [address] [facility] [address] [place] [address] PCP - General Family Practice 04/09/18 documented as of this encounter
--- OUTSIDE RECORDS SUMMARY | 2025-07-16 13:10 | XMS_ITS | Encounter Summary ---
Author Organization [facility] Address [address] [place] [address] Care Team Providers Care Field Service Specialist Name Role Phone Jean Gibbons MD Primary Care Provider +1 [phone] Encounter Details Date Type Department Care Team (Latest Contact Info) Description 02/23/2004 Outpatient Historical [facility] Ian Ryan, DO [address] [place] [address] [place] [address] ADMINISTRTVE ENCOUNT NOS (Primary Dx) Social History Tobacco Use Types Packs/Day Years Used Date Smoking Tobacco: Never Assessed Comments Unknown Sex and Gender Information Value Date Recorded Sex Assigned at Not on file Legal Sex Female 4:08 AM FORWARD AIR CONTROLLER/AIR OFFICER Gender Identity Not on file Sexual Orientation Not on file documented as of this encounter Plan of Treatment Not on file documented as of this encounter Visit Diagnoses Diagnosis Encounters for unspecified administrative purpose- Primary documented in this encounter Additional Health Concerns Infection Onset Date Last Indicated Resolved Time R/O COVID-19 10/21/2020 10/21/2020 10/28/2021 9:17 PM FORWARD AIR CONTROLLER/AIR OFFICER documented as of this encounter Care Teams Field Service Specialist Relationship Specialty Start Date End Date Jean Gibbons MD [address] [place] [address] PCP - General Family Practice 04/09/18 documented as of this encounter
--- OUTSIDE RECORDS SUMMARY | 2025-07-16 13:10 | XMS_ITS | Encounter Summary ---
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) Social History Tobacco Use Types Packs/Day Years Used Date Smoking Tobacco: Never Assessed Comments Unknown Sex and Gender Information Value Date Recorded Sex Assigned at Not on file Legal Sex Female 4:08 AM PACKING ROOM INSPECTOR Gender Identity Not on file Sexual Orientation Not on file documented as of this encounter Plan of Treatment Not on file documented as of this encounter Visit Diagnoses Diagnosis Toxic uninodular goiter without mention of thyrotoxic crisis or storm- Primary documented in this encounter Additional Health Concerns Infection Onset Date Last Indicated Resolved Time R/O COVID-19 10/21/2020 10/21/2020 10/28/2021 9:17 PM PACKING ROOM INSPECTOR documented as of this encounter Care Teams Farm Operations Technical Director Relationship Specialty Start Date End Date Jean Gibbons MD [address] [place] [address] PCP - General Family Practice 04/09/18 documented as of this encounter
--- OUTSIDE RECORDS SUMMARY | 2025-07-16 13:10 | XMS_ITS | Encounter Summary ---
Author Organization [facility] Address [address] [place] [address] Care Team Providers Care Power Builder Developer Name Role Phone Jean Gibbons MD Primary Care Provider +1 [phone] Encounter Details Date Type Department Care Team (Latest Contact Info) Description 09/22/1999 Outpatient Historical [facility] Podiatry-[facility] [place] [address] [place] [address] David Bailey, DPM NO ADDRESS ON FILE Hallux valgus (Primary Dx) Social History Tobacco Use Types Packs/Day Years Used Date Smoking Tobacco: Never Assessed Comments Unknown Sex and Gender Information Value Date Recorded Sex Assigned at Not on file Legal Sex Female 4:08 AM GUT CLEANER Gender Identity Not on file Sexual Orientation Not on file documented as of this encounter Plan of Treatment Not on file documented as of this encounter Visit Diagnoses Diagnosis Hallux valgus- Primary Hallux valgus (acquired) documented in this encounter Additional Health Concerns Infection Onset Date Last Indicated Resolved Time R/O COVID-19 10/21/2020 10/21/2020 10/28/2021 9:17 PM GUT CLEANER documented as of this encounter Care Teams Power Builder Developer Relationship Specialty Start Date End Date Jean Gibbons MD [address] [place] [address] PCP - General Family Practice 04/09/18 documented as of this encounter
--- OUTSIDE RECORDS SUMMARY | 2025-07-16 13:10 | XMS_ITS | Encounter Summary ---
Author Organization [facility] Address [address] [place] [address] Care Team Providers Care Auger Press Operator Name Role Phone Jean Gibbons MD Primary Care Provider +1 -[phone] Encounter Details Date Type Department Care Team (Latest Contact Info) Description 07/29/1999 Outpatient Historical [facility] Podiatry-[facility] [place] [address] [place] [address] David Bailey, DPM NO ADDRESS ON FILE Hallux valgus (Primary Dx) Social History Tobacco Use Types Packs/Day Years Used Date Smoking Tobacco: Never Assessed Comments Unknown Sex and Gender Information Value Date Recorded Sex Assigned at Not on file Legal Sex Female 4:08 AM PROMOTIONS MANAGER Gender Identity Not on file Sexual Orientation Not on file documented as of this encounter Plan of Treatment Not on file documented as of this encounter Visit Diagnoses Diagnosis Hallux valgus- Primary Hallux valgus (acquired) documented in this encounter Additional Health Concerns Infection Onset Date Last Indicated Resolved Time R/O COVID-19 10/21/2020 10/21/2020 10/28/2021 9:17 PM PROMOTIONS MANAGER documented as of this encounter Care Teams Auger Press Operator Relationship Specialty Start Date End Date Jean Gibbons MD [address] [place] [address] PCP - General Family Practice 04/09/18 documented as of this encounter
--- OUTSIDE RECORDS SUMMARY | 2025-07-16 13:10 | XMS_ITS | Encounter Summary ---
Author Organization [facility] Address [address] [place] [address] Care Team Providers Care District Captain Name Role Phone Jean Gibbons MD Primary Care Provider +1 -[phone] Encounter Details Date Type Department Care Team (Latest Contact Info) Description 09/08/2004 Outpatient Historical [facility] Medicine [place] [address] [address] Lesley Ortega, UROLOGIST PHYSICIAN [address] [place] [address] Pneumococcal pneumonia (Primary Dx) Social History Tobacco Use Types Packs/Day Years Used Date Smoking Tobacco: Never Assessed Comments Unknown Sex and Gender Information Value Date Recorded Sex Assigned at Not on file Legal Sex Female 4:08 AM CIRCUS LABORER Gender Identity Not on file Sexual Orientation Not on file documented as of this encounter Plan of Treatment Not on file documented as of this encounter Visit Diagnoses Diagnosis Pneumococcal pneumonia- Primary Pneumococcal pneumonia (streptococcus pneumoniae pneumonia) documented in this encounter Additional Health Concerns Infection Onset Date Last Indicated Resolved Time R/O COVID-19 10/21/2020 10/21/2020 10/28/2021 9:17 PM CIRCUS LABORER documented as of this encounter Care Teams District Captain Relationship Specialty Start Date End Date Jean Gibbons MD [address] [address] PCP - General Family Practice 04/09/18 documented as of this encounter
--- OUTSIDE RECORDS SUMMARY | 2025-07-16 13:10 | XMS_ITS | Encounter Summary ---
Author Organization [facility] Address [address] [place] [address] Care Team Providers Care Spoke Maker Name Role Phone Jean Gibbons MD Primary Care Provider +1 [phone] Encounter Details Date Type Department Care Team (Late st Contact Info) Description 07/15/2025 External Device Data STL ABSTRACTION Provider, Abstract NO ADDRESS ON FILE Social History Tobacco [...] on file Legal Sex Female 4:19 AM PORT ENGINEER Gender Identity Not on file Sexual Orientation Not on file documented as of this encounter Plan of Treatment Upcoming Encounters Date Type Department Care Team (Late st Contact Info) Description 07/21/2025 3:00 PM CDT Video Visit [address] [phone] Jean Gibbons MD [address] [place] [address] documented as of this encounter Goals Goal Patient Goal Type Associated Problems Recent Progress Patient-Stated? Author Heart Failure Goal Care Plan Heart Failure Problem No Wendy, Glenny Heart Failure Goal Care Plan Heart Failure Problem No Wendy, Owsley Heart Failure Goal Care Plan Heart Failure Problem No Grandstaff, Judy, CERTIFIED INCOME TAX PREPARER Heart Failure Goal Care Plan Heart Failure Problem No Grandstaff, Judy, CERTIFIED INCOME TAX PREPARER Heart Failure Goal Care Plan Heart Failure Problem No Grandstaff, Judy, CERTIFIED INCOME TAX PREPARER Heart Failure Goal Care Plan Heart Failure Problem No Grandstaff, Judy, CERTIFIED INCOME TAX PREPARER Heart Failure Goal Care Plan Heart Failure Problem No Grandstaff, Judy, CERTIFIED INCOME TAX PREPARER Heart Failure Goal Care Plan Heart Failure Problem No Grandstaff, Judy, CERTIFIED INCOME TAX PREPARER Heart Failure Goal Care Plan Heart Failure Problem No Grandstaff, Judy, CERTIFIED INCOME TAX PREPARER Heart Failure Goal Care Plan Heart Failure Problem No Grandstaff, Judy, CERTIFIED INCOME TAX PREPARER Heart Failure Goal Care Plan Heart Failure Problem No Grandstaff, Judy, CERTIFIED INCOME TAX PREPARER Heart Failure Goal Care Plan Heart Failure Problem No Grandstaff, Judy, CERTIFIED INCOME TAX PREPARER Heart Failure Goal Care Plan Heart Failure Problem No Grandstaff, Judy, CERTIFIED INCOME TAX PREPARER Heart Failure Goal Care Plan Heart Failure Problem No Grandstaff, Judy, CERTIFIED INCOME TAX PREPARER Heart Failure Goal Care Plan Heart Failure Problem No Grandstaff, Judy, CERTIFIED INCOME TAX PREPARER Heart Failure Goal Care Plan Heart Failure Problem No Mele, Peyton M, CERTIFIED INCOME TAX PREPARER Heart Failure Goal Care Plan Heart Failure Problem No Cervantes, Azalia K, CERTIFIED INCOME TAX PREPARER Heart Failure Goal Care Plan Heart Failure Problem No Cervantes, Azalia K, CERTIFIED INCOME TAX PREPARER Heart Failure Goal Care Plan Heart Failure Problem No Mele, Peyton M, CERTIFIED INCOME TAX PREPARER Heart Failure Goal Care Plan Heart Failure Problem No Mele, Peyton M, CERTIFIED INCOME TAX PREPARER Heart Failure Goal Care Plan Heart Failure Problem No Mele, Peyton M, CERTIFIED INCOME TAX PREPARER Heart Failure Goal Care Plan Heart Failure Problem No Mele, Peyton M, CERTIFIED INCOME TAX PREPARER Heart Failure Goal Care Plan Heart Failure Problem No Mele, Peyton M, CERTIFIED INCOME TAX PREPARER Heart Failure Goal Care Plan Heart Failure Problem No Mele, Peyton M, CERTIFIED INCOME TAX PREPARER Heart Failure Goal Care Plan Heart Failure Problem No Mele, Peyton M, CERTIFIED INCOME TAX PREPARER Heart Failure Goal Care Plan Heart Failure Problem No Meel, Peyton M, CERTIFIED INCOME TAX PREPARER Heart Failure Goal Care Plan Heart Failure Problem No Mele, Peyton M, CERTIFIED INCOME TAX PREPARER Heart Failure Goal Care Plan Heart Failure Problem No Mele, Peyton M, CERTIFIED INCOME TAX PREPARER Heart Failure Goal Care Plan Heart Failure Problem No Mele, Peyton M, CERTIFIED INCOME TAX PREPARER Heart Failure Goal Care Plan Heart Failure Problem No Mele, Peyton M, CERTIFIED INCOME TAX PREPARER Heart Failure Goal Care Plan Heart Failure Problem No Mele, Peyton M, CERTIFIED INCOME TAX PREPARER Heart Failure Goal Care Plan Heart Failure Problem No Mele, Peyton M, CERTIFIED INCOME TAX PREPARER Heart Failure Goal Care Plan Heart Failure Problem No Mele, Peyton M, CERTIFIED INCOME TAX PREPARER Heart Failure Goal Care Plan Heart Failure Problem No Mele, Peyton M, CERTIFIED INCOME TAX PREPARER Heart Failure Goal Care Plan Heart Failure [...] Goal Care Plan Heart Failure Problem No Gibbons, Jean Major, MD Heart Failure Goal Care Plan Heart [...] Heart Failure Problem No Mele, Peyton M, CERTIFIED INCOME TAX PREPARER Heart Failure Goal Care Plan Heart Failure Problem No Mele, Peyton M, CERTIFIED INCOME TAX PREPARER Heart Failure Goal Care Plan Heart Failure [...] documented as of this encounter Care Teams Spoke Maker Relationship Specialty Start Date End Date Jean Gibbons MD [address] [phone] PCP - General Family Practice 04/09/18 documented as of this encounter
--- OUTSIDE RECORDS SUMMARY | 2025-07-16 13:10 | XMS_ITS | Encounter Summary ---
Author Organization [facility] Address [address] Huggins: [place] [address] Care Team Providers Care Principal Secretary Name Role Phone Jean Gibbons MD Primary Care Provider [phone] [phone] Encounter Details Date Type Department Care Team (Late st Contact Info) Description 10/28/1999 Outpatient Historical Mine Tucker MD [address] [place], [place] [id number] Social History Tobacco Use Types Packs/Day Years Used Date Smoking Tobacco: Never Assessed Comments Unknown Sex and Gender Information Value Date Recorded Sex Assigned at Not on file Legal Sex Female 4:08 AM TYRE RETREADER Gender Identity Not on file Sexual Orientation Not on file documented as of this encounter Plan of Treatment Not on file documented as of this encounter Visit Diagnoses Not on filedocumented in this encounter Additional Health Concerns Infection Onset Date Last Indicated Resolved Time R/O COVID-19 10/21/2020 10/21/2020 10/28/2021 9:17 PM TYRE RETREADER documented as of this encounter Care Teams Principal Secretary Relationship Specialty Start Date End Date Jean Gibbons MD [address] [place] [phone] PCP - General Family Practice 04/09/18 documented as of this encounter
--- OUTSIDE RECORDS SUMMARY | 2025-07-16 13:10 | XMS_ITS | Encounter Summary ---
Author Organization [facility] Address [address] [place] [address] Care Team Providers Care Concrete Tile Machine Operator Name Role Phone Jean Gibbons MD Primary Care Provider +1 [phone] Encounter Details Date Type Department Care Team (Latest Contact Info) Description 03/02/[address] 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
--- OUTSIDE RECORDS SUMMARY | 2025-07-16 13:10 | XMS_ITS | Encounter Summary ---
Author Organization [facility] Address [address] [place] [address] Care Team Providers Care Field Support Specialist Name Role Phone Jean Gibbons MD Primary Care Provider [phone] [phone] Encounter Details Date Type Department Care Team (Latest Contact Info) Description 11/28/1999 Outpatient Historical [facility] Podiatry-[facility] Diallo [address] [place] [address] David Bailey, DPM NO ADDRESS ON FILE Hallux valgus (Primary Dx) Social History Tobacco Use Types Packs/Day Years Used Date Smoking Tobacco: Never Assessed Comments Unknown Sex and Gender Information Value Date Recorded Sex Assigned at Not on file Legal Sex Female 4:08 AM DIRECTOR BUSINESS INTEGRATION Gender Identity Not on file Sexual Orientation Not on file documented as of this encounter Plan of Treatment Not on file documented as of this encounter Visit Diagnoses Diagnosis Hallux valgus- Primary Hallux valgus (acquired) documented in this encounter Additional Health Concerns Infection Onset Date Last Indicated Resolved Time R/O COVID-19 10/21/2020 10/21/2020 10/28/2021 9:17 PM DIRECTOR BUSINESS INTEGRATION documented as of this encounter Care Teams Field Support Specialist Relationship Specialty Start Date End Date Jean Gibbons MD [address] [place] [address] PCP - General Family Practice 04/09/18 documented as of this encounter
--- OUTSIDE RECORDS SUMMARY | 2025-07-16 13:10 | XMS_ITS | Encounter Summary ---
Author Organization [facility] Address [address] [place] [address] Care Team Providers Care Rn Medication Name Role Phone Jean Gibbons MD Primary Care Provider +1 [phone] Encounter Details Date Type Department Care Team (Latest Contact Info) Description 06/10/2003 Outpatient Historical [facility] Medicine [place] [address] [address] Kamini Gallegos MD NO ADDRESS ON FILE ALLERGIC RHINITIS NOS (Primary Dx) Social History Tobacco Use Types Packs/Day Years Used Date Smoking Tobacco: Never Assessed Comments Unknown Sex and Gender Information Value Date Recorded Sex Assigned at Not on file Legal Sex Female 4:08 AM SENIOR RESTAURANT MANAGER Gender Identity Not on file Sexual Orientation Not on file documented as of this encounter Plan of Treatment Not on file documented as of this encounter Visit Diagnoses Diagnosis Allergic rhinitis, cause unspecified- Primary documented in this encounter Additional Health Concerns Infection Onset Date Last Indicated Resolved Time R/O COVID-19 10/21/2020 10/21/2020 10/28/2021 9:17 PM SENIOR RESTAURANT MANAGER documented as of this encounter Care Teams Rn Medication Relationship Specialty Start Date End Date Jean Gibbons MD [address] [address] PCP - General Family Practice 04/09/18 documented as of this encounter
--- OUTSIDE RECORDS SUMMARY | 2025-07-16 13:10 | XMS_ITS | Encounter Summary ---
Author Organization [facility] Address [address] [place] [address] Care Team Providers Care Meat Grading Machine Operator Name Role Phone Jean Gibbons MD Primary Care Provider [phone] [phone] Encounter Details Date Type Department Care Team (Late st Contact Info) Description 10/28/1999 Outpatient Historical [facility] Mine Tucker MD [address] [place] [address] Toxic uninodular goiter without mention of thyrotoxic crisis or storm (Primary Dx) Social History Tobacco Use Types Packs/Day Years Used Date Smoking Tobacco: Never Assessed Comments Unknown Sex and Gender Information Value Date Recorded Sex Assigned at Not on file Legal Sex Female 4:08 AM DEVELOPMENT EXECUTIVE Gender Identity Not on file Sexual Orientation Not on file documented as of this encounter Plan of Treatment Not on file documented as of this encounter Visit Diagnoses Diagnosis Toxic uninodular goiter without mention of thyrotoxic crisis or storm- Primary documented in this encounter Additional Health Concerns Infection Onset Date Last Indicated Resolved Time R/O COVID-19 10/21/2020 10/21/2020 10/28/2021 9:17 PM DEVELOPMENT EXECUTIVE documented as of this encounter Care Teams Meat Grading Machine Operator Relationship Specialty Start Date End Date Jean Gibbons MD [address] [place] [address] PCP - General Family Practice 04/09/18 documented as of this encounter
--- OUTSIDE RECORDS SUMMARY | 2025-07-16 13:10 | XMS_ITS | Encounter Summary ---
Author Organization [facility] Address [address] [place] [address] Care Team Providers Care Progress Worker Name Role Phone Jean Gibbons MD Primary Care Provider [phone] [phone] Encounter Details Date Type Department Care Team (Latest Contact Info) Description 08/01/2005 Outpatient Historical [facility] Medicine [address] [address] Ben Winters DO NO ADDRESS ON FILE BACKACHE NOS (Primary Dx); HYPERTENSION NOS; DEPRESSIVE DISORDER NEC Social History Tobacco Use Types Packs/Day Years Used Date Smoking Tobacco: Never Assessed Comments Unknown Sex and Gender Information Value Date Recorded Sex Assigned at Not on file Legal Sex Female 4:08 AM CAP AND STUD MACHINE OPERATOR Gender Identity Not on file Sexual Orientation Not on file documented as of this encounter Plan of Treatment Not on file documented as of this encounter Visit Diagnoses Diagnosis Backache, unspecified- Primary Unspecified essential hypertension Depressive disorder, not elsewhere classified documented in this encounter Additional Health Concerns Infection Onset Date Last Indicated Resolved Time R/O COVID-19 10/21/2020 10/21/2020 10/28/2021 9:17 PM CAP AND STUD MACHINE OPERATOR documented as of this encounter Care Teams Progress Worker Relationship Specialty Start Date End Date Jean Gibbons MD [address] [address] PCP - General Family Practice 04/09/18 documented as of this encounter
--- OUTSIDE RECORDS SUMMARY | 2025-07-16 13:10 | XMS_ITS | Encounter Summary ---
Author Organization [facility] Address [address] [place] [address] Care Team Providers Care Documentation Coordinator Name Role Phone Jean Gibbons MD Primary Care Provider [phone] [phone] Encounter Details Date Type Department Care Team (Latest Contact Info) Description 07/19/2004 Outpatient Historical [facility] Medicine [place] [address] [address] Lesley Ortega, SR. OPERATIONS MANAGER [address] [place] [address] PNEUMONIA, ORGANISM NOS (Primary Dx) Social History Tobacco Use Types Packs/Day Years Used Date Smoking Tobacco: Never Assessed Comments Unknown Sex and Gender Information Value Date Recorded Sex Assigned at Not on file Legal Sex Female 4:08 AM DISTRIBUTOR OPERATOR Gender Identity Not on file Sexual Orientation Not on file documented as of this encounter Plan of Treatment Not on file documented as of this encounter Visit Diagnoses Diagnosis Pneumonia, organism unspecified(486)- Primary Pneumonia, organism unspecified documented in this encounter Additional Health Concerns Infection Onset Date Last Indicated Resolved Time R/O COVID-19 10/21/2020 10/21/2020 10/28/2021 9:17 PM DISTRIBUTOR OPERATOR documented as of this encounter Care Teams Documentation Coordinator Relationship Specialty Start Date End Date Jean Gibbons MD [address] [phone] PCP - General Family Practice 04/09/18 documented as of this encounter
--- OUTSIDE RECORDS SUMMARY | 2025-07-16 13:10 | XMS_ITS | Encounter Summary ---
Author Organization [facility] Address [address] [place] [address] Care Team Providers Care Remelt Pan Tank Operator Name Role Phone Jean Gibbons MD Primary Care Provider [phone] [phone] Encounter Details Date Type Department Care Team (Latest Contact Info) Description 01/27/2000 Outpatient Historical [facility] Podiatry-[facility] D[place] [address] [place] [address] David Bailey, DPM NO ADDRESS ON FILE Hallux valgus (Primary Dx) Social History Tobacco Use Types Packs/Day Years Used Date Smoking Tobacco: Never Assessed Comments Unknown Sex and Gender Information Value Date Recorded Sex Assigned at Not on file Legal Sex Female 4:08 AM SPORTS EQUIPMENT REPAIRER Gender Identity Not on file Sexual Orientation Not on file documented as of this encounter Plan of Treatment Not on file documented as of this encounter Visit Diagnoses Diagnosis Hallux valgus- Primary Hallux valgus (acquired) documented in this encounter Additional Health Concerns Infection Onset Date Last Indicated Resolved Time R/O COVID-19 10/21/2020 10/21/2020 10/28/2021 9:17 PM SPORTS EQUIPMENT REPAIRER documented as of this encounter Care Teams Remelt Pan Tank Operator Relationship Specialty Start Date End Date Jean Gibbons MD [address] [place] [address] PCP - General Family Practice 04/09/18 documented as of this encounter
--- OUTSIDE RECORDS SUMMARY | 2025-07-16 13:10 | XMS_ITS | Encounter Summary ---
Author Organization [facility] Address [address] [place] [address] Care Team Providers Care Business Support Administrator Name Role Phone Jean Gibbons MD Primary Care Provider +1 [phone] Encounter Details Date Type Department Care Team (Latest Contact Info) Description 09/28/2005 Outpatient Historical [facility] Medicine [address] [address] Lesley Ortega, SUPERVISOR PRECISION OPTICAL ELEMENTS [address] [place] [address] ACUTE URI NOS (Primary Dx); HYPOTHYROIDISM NOS; EXAM AFTR OTHR HI-RISK COMPL RX NEC; COUGH Social History Tobacco Use Types Packs/Day Years Used Date Smoking Tobacco: Never Assessed Comments Unknown Sex and Gender Information Value Date Recorded Sex Assigned at Not on file Legal Sex Female 4:08 AM COMMUNICATION CONSULTANT Gender Identity Not on file Sexual [...] R/O COVID-19 10/21/2020 10/21/2020 10/28/2021 9:17 PM COMMUNICATION CONSULTANT documented as of this encounter Care Teams Business Support Administrator Relationship Specialty Start Date End Date Jean Gibbons MD [address] [address] PCP - General Family Practice 04/09/18 documented as of this encounter
--- OUTSIDE RECORDS SUMMARY | 2025-07-16 13:10 | XMS_ITS | Encounter Summary ---
Author Organization [facility] Address [address] [place] [address] Care Team Providers Care Metal Die Finisher Name Role Phone Jean Gibbons MD Primary Care Provider +1 [phone] Encounter Details Date Type Department Care Team (Latest Contact Info) Description 09/13/2004 Outpatient Historical [facility] Medicine [place] [address] [address] Lesley Ortega, INSURANCE SALESMAN [address] [place] [address] ACUTE URI NOS (Primary Dx) Social History Tobacco Use Types Packs/Day Years Used Date Smoking Tobacco: Never Assessed Comments Unknown Sex and Gender Information Value Date Recorded Sex Assigned at Not on file Legal Sex Female 4:08 AM INGOT WEIGHER Gender Identity Not on file Sexual Orientation Not on file documented as of this encounter Plan of Treatment Not on file documented as of this encounter Visit Diagnoses Diagnosis Acute upper respiratory infections of unspecified site- Primary documented in this encounter Additional Health Concerns Infection Onset Date Last Indicated Resolved Time R/O COVID-19 10/21/2020 10/21/2020 10/28/2021 9:17 PM INGOT WEIGHER documented as of this encounter Care Teams Metal Die Finisher Relationship Specialty Start Date End Date Jean Gibbons MD [address] [address] PCP - General Family Practice 04/09/18 documented as of this encounter
--- OUTSIDE RECORDS SUMMARY | 2025-07-16 13:10 | XMS_ITS | Encounter Summary ---
Author Organization [facility] Address [address] Huggins: Epic Prelude ADT [place] [address] Care Team Providers Care Brand Analyst Name Role Phone Jean Gibbons MD Primary Care Provider [phone] [phone] Encounter Details Date Type Department Care Team (Late st Contact Info) Description 11/14/1999 Outpatient Historical David Bailey, DPM NO ADDRESS ON FILE Social History Tobacco Use Types Packs/Day Years Used Date Smoking Tobacco: Never Assessed Comments Unknown Sex and Gender Information Value Date Recorded Sex Assigned at Not on file Legal Sex Female 4:08 AM SOLUTION SPEC Gender Identity Not on file Sexual Orientation Not on file documented as of this encounter Plan of Treatment Not on file documented as of this encounter Visit Diagnoses Not on filedocumented in this encounter Additional Health Concerns Infection Onset Date Last Indicated Resolved Time R/O COVID-19 10/21/2020 10/21/2020 10/28/2021 9:17 PM SOLUTION SPEC documented as of this encounter Care Teams Brand Analyst Relationship Specialty Start Date End Date Jean Gibbons MD [address] [facility] [address] [place] [address] PCP - General Family Practice 04/09/18 documented as of this encounter
--- OUTSIDE RECORDS SUMMARY | 2025-07-16 13:10 | XMS_ITS | Encounter Summary ---
Author Organization [facility] Address [address] [place] [address] Care Team Providers Care Photograph Retoucher Name Role Phone Jean Gibbons MD Primary Care Provider +1 -[phone] Encounter Details Date Type Department Care Team (Latest Contact Info) Description 10/23/2005 Outpatient Historical [facility] Medicine [place] [address] [address] Deanna Parada NP NO ADDRESS ON FILE ACUTE SINUSITIS NOS (Primary Dx); JOINT PAIN-UNSPEC Social History Tobacco Use Types Packs/Day Years Used Date Smoking Tobacco: Never Assessed Comments Unknown Sex and Gender Information Value Date Recorded Sex Assigned at Not on file Legal Sex Female 4:08 AM SIDEROGRAPHIST Gender Identity Not on file Sexual Orientation Not on file documented as of this encounter Plan of Treatment Not on file documented as of this encounter Visit Diagnoses Diagnosis Acute sinusitis, unspecified- Primary Pain in joint, site unspecified documented in this encounter Additional Health Concerns Infection Onset Date Last Indicated Resolved Time R/O COVID-19 10/21/2020 10/21/2020 10/28/2021 9:17 PM SIDEROGRAPHIST documented as of this encounter Care Teams Photograph Retoucher Relationship Specialty Start Date End Date Jean Gibbons MD [address] [address] PCP - General Family Practice 04/09/18 documented as of this encounter
--- OUTSIDE RECORDS SUMMARY | 2025-07-16 13:10 | XMS_ITS | Encounter Summary ---
Author Organization [facility] Address [address] [place] [address] Care Team Providers Care Sales Development Manager Name Role Phone Jean Gibbons MD Primary Care Provider +1 [phone] Encounter Details Date Type Department Care Team (Latest Contact Info) Description 01/31/2005 Outpatient Historical [facility] Medicine [place] [address] [address] Lesley Ortega, FLOOR SANDING MACHINE OPERATOR [address] [place] [phone] ACUTE URI NOS (Primary Dx); ACUTE PHARYNGITIS; GENERAL OSTEOARTHROSIS Social History Tobacco Use Types Packs/Day Years Used Date Smoking Tobacco: Never Assessed Comments Unknown Sex and Gender Information Value Date Recorded Sex Assigned at Not on file Legal Sex Female 4:08 AM DENTURE LABORATORY TECHNICIAN Gender Identity Not on file Sexual [...] R/O COVID-19 10/21/2020 10/21/2020 10/28/2021 9:17 PM DENTURE LABORATORY TECHNICIAN documented as of this encounter Care Teams Sales Development Manager Relationship Specialty Start Date End Date Jean Gibbons MD [address] [facility] [address] [place] [phone] PCP - General Family Practice 04/09/18 documented as of this encounter
--- OUTSIDE RECORDS SUMMARY | 2025-07-16 13:10 | XMS_ITS | Encounter Summary ---
Author Organization [facility] Address [address] [place] [address] Care Team Providers Care Traffic Recorder Name Role Phone Jean Gibbons MD Primary Care Provider [phone] [phone] Encounter Details Date Type Department Care Team (Latest Contact Info) Description 09/20/2004 Outpatient Historical [facility] Medicine [place] [address] [address] Ben Winters DO NO ADDRESS ON FILE BACKACHE NOS (Primary Dx); ASTHMA UNSPECIFIED; HYPERTENSION NOS Social History Tobacco Use Types Packs/Day Years Used Date Smoking Tobacco: Never Assessed Comments Unknown Sex and Gender Information Value Date Recorded Sex Assigned at Not on file Legal Sex Female 4:08 AM PROTECTIVE SIGNAL OPERATIONS SUPERVISOR Gender Identity Not on file Sexual Orientation Not on file documented as of this encounter Plan of Treatment Not on file documented as of this encounter Visit Diagnoses Diagnosis Backache, unspecified- Primary Unspecified asthma(493.90) Unspecified asthma Unspecified essential hypertension documented in this encounter Additional Health Concerns Infection Onset Date Last Indicated Resolved Time R/O COVID-19 10/21/2020 10/21/2020 10/28/2021 9:17 PM PROTECTIVE SIGNAL OPERATIONS SUPERVISOR documented as of this encounter Care Teams Traffic Recorder Relationship Specialty Start Date End Date Jean Gibbons MD [address] [address] PCP - General Family Practice 04/09/18 documented as of this encounter
--- OUTSIDE RECORDS SUMMARY | 2025-07-16 13:10 | XMS_ITS | Encounter Summary ---
Author Organization [facility] Address [address] [place] [address] Care Team Providers Care Surg Rn Name Role Phone Jean Gibbons MD Primary Care Provider [phone] [phone] Encounter Details Date Type Department Care Team (Latest Contact Info) Description 07/11/2004 Outpatient Historical [facility] Medicine [place] [address] [address] Deanna Parada NP NO ADDRESS ON FILE ACUTE BRONCHITIS (Primary Dx); ACUTE PHARYNGITIS; ASTHMA UNSPECIFIED Social History Tobacco Use Types Packs/Day Years Used Date Smoking Tobacco: Never Assessed Comments Unknown Sex and Gender Information Value Date Recorded Sex Assigned at Not on file Legal Sex Female 4:08 AM LOCAL COMPANY REFRIGERATED TRUCK DRIVER Gender Identity Not on file Sexual Orientation Not on file documented as of this encounter Plan of Treatment Not on file documented as of this encounter Visit Diagnoses Diagnosis Acute bronchitis- Primary Acute pharyngitis Unspecified asthma(493.90) Unspecified asthma documented in this encounter Additional Health Concerns Infection Onset Date Last Indicated Resolved Time R/O COVID-19 10/21/2020 10/21/2020 10/28/2021 9:17 PM LOCAL COMPANY REFRIGERATED TRUCK DRIVER documented as of this encounter Care Teams Surg Rn Relationship Specialty Start Date End Date Jean Gibbons MD [address] [address] PCP - General Family Practice 04/09/18 documented as of this encounter
--- OUTSIDE RECORDS SUMMARY | 2025-07-16 13:10 | XMS_ITS | Encounter Summary ---
Author Organization [facility] Address [address] [place] [address] Care Team Providers Care Wax Pattern Assembler Name Role Phone Jean Gibbons MD Primary Care Provider [phone] [phone] Encounter Details Date Type Department Care Team (Late st Contact Info) Description 03/02/2000 Outpatient Historical [facility] Social History Tobacco Use Types Packs/Day Years Used Date Smoking Tobacco: Never Assessed Comments Unknown Sex and Gender Information Value Date Recorded Sex Assigned at Not on file Legal Sex Female 4:08 AM CUTTER BRAKE LINING Gender Identity Not on file Sexual Orientation Not on file documented as of this encounter Plan of Treatment Not on file documented as of this encounter Visit Diagnoses Not on filedocumented in this encounter Additional Health Concerns Infection Onset Date Last Indicated Resolved Time R/O COVID-19 10/21/2020 10/21/2020 10/28/2021 9:17 PM CUTTER BRAKE LINING documented as of this encounter Care Teams Wax Pattern Assembler Relationship Specialty Start Date End Date Jean Gibbons MD [address] [place] [address] PCP - General Family Practice 04/09/18 documented as of this encounter
--- OUTSIDE RECORDS SUMMARY | 2025-07-16 13:10 | XMS_ITS | Encounter Summary ---
Author Organization [facility] Address [address] [place] [address] Care Team Providers Care Senior Financial Accountant Name Role Phone Jean Gibbons MD Primary Care Provider [phone] Encounter Details Date Type Department Care Team (Latest Contact Info) Description 10/19/2003 Outpatient Historical [facility] Medicine [place] [address] [address] Neo Aceves MD [address] [address] JOINT PAIN-UNSPEC (Primary Dx); NONINFEC GASTROENTERIT NEC Social History Tobacco Use Types Packs/Day Years Used Date Smoking Tobacco: Never Assessed Comments Unknown Sex and Gender Information Value Date Recorded Sex Assigned at Not on file Legal Sex Female 4:08 AM LAUNDRY HOUSEKEEPER Gender Identity Not on file Sexual Orientation [...] R/O COVID-19 10/21/2020 10/21/2020 10/28/2021 9:17 PM LAUNDRY HOUSEKEEPER documented as of this encounter Care Teams Senior Financial Accountant Relationship Specialty Start Date End Date Jean Gibbons MD [address] [address] PCP - General Family Practice 04/09/18 documented as of this encounter
--- OUTSIDE RECORDS SUMMARY | 2025-07-16 13:10 | XMS_ITS | Encounter Summary ---
Author Organization [facility] Address [address] [place] [address] Care Team Providers Care Special Librarian Name Role Phone Jean Gibbons MD Primary Care Provider [phone] Encounter Details Date Type Department Care Team (Latest Contact Info) Description 06/03/1999 Outpatient Historical [facility] [place] [address] [place] [address] Mine Tucker MD [address] [place] [address] Toxic uninodular goiter without mention of thyrotoxic crisis or storm (Primary Dx) Social History Tobacco Use Types Packs/Day Years Used Date Smoking Tobacco: Never Assessed Comments Unknown Sex and Gender Information Value Date Recorded Sex Assigned at Not on file Legal Sex Female 4:08 AM RESTORATIVE COORDINATOR Gender Identity Not on file Sexual Orientation Not on file documented as of this encounter Plan of Treatment Not on file documented as of this encounter Visit Diagnoses Diagnosis Toxic uninodular goiter without mention of thyrotoxic crisis or storm- Primary documented in this encounter Additional Health Concerns Infection Onset Date Last Indicated Resolved Time R/O COVID-19 10/21/2020 10/21/2020 10/28/2021 9:17 PM RESTORATIVE COORDINATOR documented as of this encounter Care Teams Special Librarian Relationship Specialty Start Date End Date Jean Gibbons MD [address] [place] [address] PCP - General Family Practice 04/09/18 documented as of this encounter
--- OUTSIDE RECORDS SUMMARY | 2025-07-16 13:10 | XMS_ITS | Encounter Summary ---
Author Organization [facility] Address [address] [place] [address] Care Team Providers Care Latin American Studies Professor Name Role Phone Jean Gibbons MD Primary Care Provider [phone] [phone] Encounter Details Date Type Department Care Team (Latest Contact Info) Description 03/15/2005 Outpatient Historical [facility] Medicine [place] [address] [address] Ben Winters DO NO ADDRESS ON FILE BACKACHE NOS (Primary Dx); HYPERTENSION NOS; ANXIETY STATE NOS Social History Tobacco Use Types Packs/Day Years Used Date Smoking Tobacco: Never Assessed Comments Unknown Sex and Gender Information Value Date Recorded Sex Assigned at Not on file Legal Sex Female 4:08 AM LEGAL SERVICES MANAGER Gender Identity Not on file Sexual Orientation Not on file documented as of this encounter Plan of Treatment Not on file documented as of this encounter Visit Diagnoses Diagnosis Backache, unspecified- Primary Unspecified essential hypertension Anxiety state, unspecified documented in this encounter Additional Health Concerns Infection Onset Date Last Indicated Resolved Time R/O COVID-19 10/21/2020 10/21/2020 10/28/2021 9:17 PM LEGAL SERVICES MANAGER documented as of this encounter Care Teams Latin American Studies Professor Relationship Specialty Start Date End Date Jean Gibbons MD [address] [address] PCP - General Family Practice 04/09/18 documented as of this encounter
--- OUTSIDE RECORDS SUMMARY | 2025-07-16 13:10 | XMS_ITS | Encounter Summary ---
Author Organization [facility] Address [address] [place] [address] Care Team Providers Care Patrol Driver Name Role Phone Jean Gibbons MD Primary Care Provider [phone] Encounter Details Date Type Department Care Team (Latest Contact Info) Description 11/21/1999 Outpatient Historical [facility] [place] [address] [place] [address] David Bailey, DPM NO ADDRESS ON FILE Hallux valgus (Primary Dx) Social History Tobacco Use Types Packs/Day Years Used Date Smoking Tobacco: Never Assessed Comments Unknown Sex and Gender Information Value Date Recorded Sex Assigned at Not on file Legal Sex Female 4:08 AM CLINICAL RESEARCH MONITOR Gender Identity Not on file Sexual Orientation Not on file documented as of this encounter Plan of Treatment Not on file documented as of this encounter Visit Diagnoses Diagnosis Hallux valgus- Primary Hallux valgus (acquired) documented in this encounter Additional Health Concerns Infection Onset Date Last Indicated Resolved Time R/O COVID-19 10/21/2020 10/21/2020 10/28/2021 9:17 PM CLINICAL RESEARCH MONITOR documented as of this encounter Care Teams Patrol Driver Relationship Specialty Start Date End Date Jean Gibbons MD [address] [place] [address] PCP - General Family Practice 04/09/18 documented as of this encounter
--- OUTSIDE RECORDS SUMMARY | 2025-07-16 13:10 | XMS_ITS | Encounter Summary ---
Author Organization [facility] Address [address] [place] [address] Care Team Providers Care Tiedown Operator Name Role Phone Jean Gibbons MD Primary Care Provider [phone] Encounter Details Date Type Department Care Team (Latest Contact Info) Description 03/12/2003 Outpatient Historical [facility] Medicine [place] [address] [address] Kamini Gallegos MD NO ADDRESS ON FILE [place], BLOOD IN STOOL (Primary Dx) Social History Tobacco Use Types Packs/Day Years Used Date Smoking Tobacco: Never Assessed Comments Unknown Sex and Gender Information Value Date Recorded Sex Assigned at Not on file Legal Sex Female 4:08 AM HOSPITAL HOUSEKEEPER Gender Identity Not on file Sexual Orientation Not on file documented as of this encounter Plan of Treatment Not on file documented as of this encounter Visit Diagnoses Diagnosis Blood in stool- Primary documented in this encounter Additional Health Concerns Infection Onset Date Last Indicated Resolved Time R/O COVID-19 10/21/2020 10/21/2020 10/28/2021 9:17 PM HOSPITAL HOUSEKEEPER documented as of this encounter Care Teams Tiedown Operator Relationship Specialty Start Date End Date Jean Gibbons MD [address] [address] PCP - General Family Practice 04/09/18 documented as of this encounter
--- OUTSIDE RECORDS SUMMARY | 2025-07-16 13:10 | XMS_ITS | Clinical Summary ---
Author Organization [facility] Address [address] [facility] [address] [place] [address] Care Team Providers Care Floorwalker Name Role Phone Jean Gibbons MD Primary Care Provider +1 [phone] Allergies Active Allergy Reactions Criticality Noted Date [...] 60 Tablet 5 12/04/19 25 Active Fish Oil-Newberry-3 Fatty Acids 360-1,200 mg Capsule Take 1 Capsule by mouth daily. 90 Capsule 03/03/20 25 Active fluticasone propionate (FLONASE) 50 mcg/spray [place], Suspension nasal inhaler Administer 2 Sprays in [...] days. 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 Chronic systolic congestive heart [...] unspecified noninf ectious gastroenteritis and colitis(558.9) 11/27 Encounters Date Type Department Care Team Description 07/15/2025 Results Follow-Up [facility] [place] [address] [facility] [address] [place] [address] Jean Gibbons MD COMPREHENSIVE METABOLIC PANEL, TSH, T4 FREE, CBC WITH DIFFERENTIAL 07/15/2025 External Device Data STL ABSTRACTION Provider, Abstract 07/10/2025 Orders Only [address] [address] Jean Gibbons MD 07/10/[address] [address] Jean Gibbons MD Medication Review; sinus/allergies 07/10/2025 Patient Self-Triage [place] [address] [place] [address] 07/09/[address] [address] Jean Gibbons MD Provider Call 07/02/[address] [address] Katerin Glover FNP Yeast infection; Anxiety, generalized; Moderate episode of recurrent major depressive disorder ([facility]/HCC) 06/22/[address] [address] Jean Gibbons MD Provider Call 06/21/[address] [address] Katerin Glover FNP Anxiety, generalized; Moderate episode of recurrent major depressive disorder (CMS/HCC) 06/17/2025 External Device Data STL ABSTRACTION Provider, Abstract 06/16/[address] [address] Jean Gibbons MD Patient Communication 06/15/2025 1:20 PM CDT Office Visit [address] [address] Jean Gibbons MD Paroxysmal atrial fibrillation ([facility]/HCC) (Primary Dx); Hyperthyroidism; Chronic anemia; JAVIER (acute kidney injury); Muscle weakness (generalized); History of falling; Myelodysplastic syndrome (CMS/HCC); Stage 3a chronic kidney disease ([facility]/HCC) 06/15/[address] [address] Jean Gibbons MD Patient Communication; Provider Call 06/09/[address] [phone] Provider, Abstract 06/04/[address] [phone] Jean Gibbons MD Chronic midline low back pain with left-sided sciatica; Spinal stenosis of lumbar region without neurogenic claudication; Primary osteoarthritis of both shoulders; Rotator cuff syndrome of right shoulder; Osteoarthritis of spine with radiculopathy, cervical region 05/28/2025 1:28 PM CDT - 05/28/2025 11:59 PM CDT Hospital Encounter [facility] CT Scan [place] [address] [phone] Jean Gibbons MD Discharge Disposition: Home or Self Care 05/28/2025 1:27 PM CDT - 05/28/2025 11:59 PM CDT Hospital Encounter [facility] Ultrasound [place] [address] [address] Jean Gibbons MD Discharge Disposition: Home or Self Care 05/20/[address] [phone] Jean Gibbons MD 05/19/2025 Orders Only [address] [phone] Jean Gibbons MD JAVIER (acute kidney injury) (Primary Dx); Infrarenal abdominal aortic aneurysm (AAA) without rupture 05/18/[address] [address] Jean Gibbons MD Question 05/12/2025 External Device Data STL ABSTRACTION Provider, Abstract 05/12/2025 Patient Outreach [facility] Outpatient Care Management [place] [address] [place] [address] Jeannie Ceja Transportation Issues 05/08/[address] [address] Jean Gibbons MD Patient Communication; Results 05/07/2025 9:40 AM CDT Office Visit [address] [address] Jean Gibbons MD Infrarenal abdominal aortic aneurysm (AAA) without rupture (Primary Dx); Chronic anemia; Chronic systolic congestive heart failure; Muscle weakness (generalized); History of falling 05/07/[address] [address] Jean Gibbons MD 05/04/2025 Patient Outreach [facility] Outpatient Care Management - [place] [address], [place] [address] Jeannie Ceja Needs Community Resources 05/01/[address] [address] Jean Gibbons MD 04/30/[address] [address] Jean Gibbons MD Medication Question 04/27/2025 External Device Data Initial Department [address] [place] [address] PORTILLO: [place] [address] Eran Rosa Md 04/27/[address] [address] Jean Gibbons MD Clinical Consult Before Scheduling 04/21/2025 Telephone [facility] [address] [address] Jean Gibbons MD Information 04/15/2025 External Device Data STL ABSTRACTION Provider, Abstract from Last 3 Months Immunizations Immunization Administration [...] on file Legal Sex Female 4:19 AM PSYCHOLOGICAL ANTHROPOLOGIST Gender Identity Not on file Sexual Orientation [...] Description 07/21/2025 3:00 PM CDT Video Visit [facility] [address] [place] [address] Jean Gibbons MD [address] [place] [address] Health Maintenance Due Date Last Done Comments ZOSTER VACCINE (1 of 2) 1995 DTAP/TDAP/TD VACCINES (1 - Tdap) 01/18/2006 01/18/20 06, 11/12/1997 COLORECTAL SCREENING 09/11/2016 09/11/2011 RSV VACCINE (60+ or ) (1 - 1-dose 75+ series) 2020 INFLUENZA VACCINE (#1) 2025 , 08/12/2024, 08/12/2024, Additional history exists COVID-19 Vaccine (3 - 2024-2 6 season) 2025 02/10/2021, 01/13/2021 Traditional Medicare (O) A nnual Wellness Visit 08/13/2025 08/12/2024, 09/29/2022 OSTEOPOROSIS SCREENING 10/30/2027 10/30/2022 PNEUMOCOCCAL VACCINE 50+ YEARS Completed 0 06/07/2015, 10/16/2012, 10/16/2012 Goals Goal Patient Goal Type Associated Problems Recent Progress Patient-Stated? Author Heart Failure Goal Care Plan Heart Failure Problem No Glenny Nguyen Heart Failure Goal Care Plan Heart Failure Problem No Glenny Nguyen Heart Failure Goal Care Plan Heart Failure Problem No GrandstaffMarciJudy, BLACK OXIDE OPERATOR Heart Failure Goal Care Plan Heart Failure Problem No GrandstaffMarciJudy, BLACK OXIDE OPERATOR Heart Failure Goal Care Plan Heart Failure Problem No Grandstaff, Judy, BLACK OXIDE OPERATOR Heart Failure Goal Care Plan Heart Failure Problem No GrandstaffMarciJudy, BLACK OXIDE OPERATOR Heart Failure Goal Care Plan Heart Failure Problem No Grandstaff, Judy, BLACK OXIDE OPERATOR Heart Failure Goal Care Plan Heart Failure Problem No Grandstaff, Judy, BLACK OXIDE OPERATOR Heart Failure Goal Care Plan Heart Failure Problem No Grandstaff, Judy, BLACK OXIDE OPERATOR Heart Failure Goal Care Plan Heart Failure Problem No Grandstaff, Judy, BLACK OXIDE OPERATOR Heart Failure Goal Care Plan Heart Failure Problem No Grandstaff, Judy, BLACK OXIDE OPERATOR Heart Failure Goal Care Plan Heart Failure Problem No Grandstaff, Judy, BLACK OXIDE OPERATOR Heart Failure Goal Care Plan Heart Failure Problem No Grandstaff, Judy, BLACK OXIDE OPERATOR Heart Failure Goal Care Plan Heart Failure Problem No Grandstaff, Judy, BLACK OXIDE OPERATOR Heart Failure Goal Care Plan Heart Failure Problem No Grandstaff, Judy, BLACK OXIDE OPERATOR Heart Failure Goal Care Plan Heart Failure Problem No Mele, Peyton M, BLACK OXIDE OPERATOR Heart Failure Goal Care Plan Heart Failure Problem No Cervantes, Azalia K, BLACK OXIDE OPERATOR Heart Failure Goal Care Plan Heart Failure Problem No Cervantes, Azalia K, BLACK OXIDE OPERATOR Heart Failure Goal Care Plan Heart Failure Problem No Mele, Peyton M, BLACK OXIDE OPERATOR Heart Failure Goal Care Plan Heart Failure Problem No Mele, Peyton M, BLACK OXIDE OPERATOR Heart Failure Goal Care Plan Heart Failure Problem No Mele, Peyton M, BLACK OXIDE OPERATOR Heart Failure Goal Care Plan Heart Failure Problem No Mele, Peyton M, BLACK OXIDE OPERATOR Heart Failure Goal Care Plan Heart Failure Problem No Mele, Peyton M, BLACK OXIDE OPERATOR Heart Failure Goal Care Plan Heart Failure Problem No Mele, Peyton M, BLACK OXIDE OPERATOR Heart Failure Goal Care Plan Heart Failure Problem No Mele, Peyton M, BLACK OXIDE OPERATOR Heart Failure Goal Care Plan Heart Failure Problem No Mele, Peyton M, BLACK OXIDE OPERATOR Heart Failure Goal Care Plan Heart Failure Problem No Mele, Peyton M, BLACK OXIDE OPERATOR Heart Failure Goal Care Plan Heart Failure Problem No Mele, Peyton M, BLACK OXIDE OPERATOR Heart Failure Goal Care Plan Heart Failure Problem No Mele, Peyton M, BLACK OXIDE OPERATOR Heart Failure Goal Care Plan Heart Failure Problem No Mele, Peyton M, BLACK OXIDE OPERATOR Heart Failure Goal Care Plan Heart Failure Problem No Mele, Peyton M, BLACK OXIDE OPERATOR Heart Failure Goal Care Plan Heart Failure Problem No Mele, Peyton M, BLACK OXIDE OPERATOR Heart Failure Goal Care Plan Heart Failure Problem No Mele, Peyton M, BLACK OXIDE OPERATOR Heart Failure Goal Care Plan Heart Failure Problem No Mele, Peyton M, BLACK OXIDE OPERATOR Heart Failure Goal Care Plan Heart [...] Heart Failure Problem No Mele, Peyton M, BLACK OXIDE OPERATOR Heart Failure Goal Care Plan Heart Failure Problem No Mele, Peyton M, BLACK OXIDE OPERATOR Heart Failure Goal Care Plan Heart [...] OR MORE SITES Routine 10/30/2022 12:00 PM PSYCHOLOGICAL ANTHROPOLOGIST Asymptomatic menopausal state from Last 3 Months [...] [facility] Comment: Test Performed at: [facility] [address] [place] [address] Liliana Cotter MD Blood 06/15/2025 2:34 PM CDT 06/16/2025 5:03 AM CDT Jean Gibbons MD HEMATOLOGY ORDERABLES Fin al Result Performing Organization Address [facility]/ZIP Co de Phone Number [facility] [phone] [facility] [address] * TSH (06/15/2025 2:34 PM CDT) Pathologist [facility] TSH 1.82 0.40 - 4.50 mIU/L [facility] Comment: Test Performed at: [facility] [place] [address] Liliana Cotter MD Blood 06/15/2025 2:34 PM CDT 06/16/2025 5:03 AM CDT Jean Gibbons MD CHEMISTRY ORDERABLES Etta l Result Performing Organization Address City/[facility]/ZIP Co de Phone Number [facility] [phone] [facility] [address] [place] [address] * T4 FREE (06/15/2025 2:34 PM CDT) Pathologist [facility] T4 FREE 1.5 0.8 - 1.8 ng/dL [facility] Comment: Test Performed at: [facility] [address] [place] [address] NaySravanthi Cotter MD Blood 06/15/2025 2:34 PM CDT 06/16/2025 5:03 AM CDT Jean Gibbons MD CHEMISTRY ORDERABLES Etta mk Result [facility] [phone] [facility] [address] [place] [address] * (ABNORMAL) COMPREHENSIVE METABOLIC PANEL (06/15/2025 2:34 [...] [facility] Comment: Test Performed at: [facility] [address] [place] [address] Liliana Cotter MD Blood 06/15/2025 2:34 PM CDT 06/16/2025 5:03 AM CDT us Jean Gibbons MD CHEMISTRY ORDERABLES Etta l Result [facility] [phone] [facility] [address] [place] [address] * US AORTA (05/28/2025 2:03 PM CDT) Anatomical Region Laterality Modality Abdomen Ultrasound 05/28/2025 1:35 PM CDT Narrative 05/28/2025 7:04 PM CDT [facility] Radiology Services - Noninvasive Vascular [address] [address] Noninvasive Vascular Lab Limited Abdominal Ultrasound Evaluation Patient: Cris New Study ID: [id number] Gender: F : 1945 Age: 80 Room: Height: 167.4cm Weight: 71.2kg BSA: 1.83m^2 Pt status: Study Date: 05/28/2025 Study Time: 01:35:06 PM BSA: 1.83m^2 Ordering: Jean Gibbons Interpreting:Opal Rosado Tong Carrier: Katharine Matos History: Abdominal pain. Summary Impression: [...] Procedure Note Opal Rosado DO - 05/28/2025 [facility] Radiology Services - Noninvasive Vascular [address] [address] Noninvasive Vascular Lab Limited Abdominal Ultrasound Evaluation Patient: Cris New Study ID: [id number] Gender: F : 1945 Age: 80 Room: Height: 167.4cm Weight: 71.2kg BSA: 1.83m^2 Pt status: Study Date: 05/28/2025 Study Time: 01:35:06 PM BSA: 1.83m^2 Ordering: Jean Gibbons Interpreting:Opal Rosado Tong Carrier: Katharine Matos History: Abdominal pain. Summary Impression: [...] sensitvity to pressure. Prepared and Electronically Authenticated AlonzoOpal zhang Confirmed 05/28/2025 19:04 Jean Gibbons MD US ORDERABLES Final Res ult * (ABNORMAL) CREATININE (05/19/2025 9:10 AM CDT) CREATININE 1.68(H) 0.51 - 0.95 mg/dL 05/19/2025 9:27 AM CDT [facility] Comment:The GFR result is no t clinically significant on patients <18 or >70 years of age. GFR 31 mL/min/1.7 3 sq meter 05/19/2025 9:27 AM CDT [facility] Comment:eGFR calculated with 2020 CKD-EPI equation. Vegetarian diet, extremely high or low muscle mass, and may affect results. Cystatin C with Glomerular Filtration Rate is a suitable alternative for these patients. Blood BLOOD SPECIMEN / Unknown Collection / Unknown 05/19/2025 9:10 AM CDT 05/19/2025 9:11 AM CDT Jean Gibbons MD CHEMISTRY ORDERABLES Etta l Result [facility] CLIA # [id number] [address] [place] [address] * POC OCCULT BLOOD UP TO 3 CARDS (04/17/2025 3:45 PM CDT) OCCULT BLOOD 1 CARD POC Negative Negative [facility] OCCULT BLOOD 2 CARD POC Negative Negative, Indeterminate [facility] OCCULT BLOOD 3 CARD POC Negative Negative, Indeterminate [facility] INTERNAL KIT QC POC Pass Pass [facility] CARD LOT NUMBER POC [id number] [facility] CARD EXPIRATION DATE POC 10/11/2026 [facility] DEVELOPER LOT NUMBER POC [id number] [facility] DEVELOPER EXPIRATION DATE POC 07/11/2027 [facility] Stool STOOL SPECIMEN / Unknown 04/17/2025 3:45 PM CDT Jean Gibbons MD POINT OF CARE TESTING Fin al Result [facility] CLIA# [id number] [address] [place] [address] * XR DEXA BONE DENSITY AXIAL 1 OR MORE SITES (10/30/2022 12:00 PM PSYCHOLOGICAL ANTHROPOLOGIST) Pathologist [facility] T-SCORE SPINE 1.50 -1.0 - 1.0 INTER FACE SYSTEM T-SCORE HIP (LEFT) -1.60 -1.0 - 1.0 INTERFACE SYSTEM T-SCORE WRIST (LEFT) -1.10 -1.0 - 1.0 INTERFACE SYSTEM Anatomical Region Laterality Modality Digital Radiogra phy 10/30/2022 12:3 1 PM PSYCHOLOGICAL ANTHROPOLOGIST Impressions 10/30/2022 1:25 PM PSYCHOLOGICAL ANTHROPOLOGIST IMPRESSION: 1. Osteopenia. 2. Fracture risk 4 [...] captured in the FRAX model. www.shef.ac.uk/FRAX/. Enter [employer]OT for Select DXA and the Femoral Neck BMD value. Narrative 10/30/2022 1:25 PM PSYCHOLOGICAL ANTHROPOLOGIST EXAM: XR DEXA BONE DENSITY AXIAL 1 OR MORE SITES DATE/TIME OF EXAM: 10/30/2022 12:00 PM REASON FOR STUDY: See Diagnosis DIAGNOSIS: Asymptomatic menopausal state COMPARISON: None TECHNIQUE: The bone mineral density (BMD) was determined using a dual-energy x-ray source (FoKo). Fracture risk is related to the absolute bone density and is therefore expressed as compared to a young gender-matched population labor relations representative of the medial peak bone density. [...] was determined using a dual-energy x-ray source (FoKo). Fracture risk is related to the absolute bone density and is therefore expressed as compared to a young gender-matched population labor relations representative of the medial peak bone density. [...] Problem 12/04/2024 Heart Failure Problem 12/04/2024 Insurance MEDICARE PART A AND B [place] [id number] Advance Directives For more information, please contact: [phone] * Full Code (Latest Code Status on File) Date Activated Date Inactivated Comments 03/01/2025 12:49 AM 03/02/2025 7:58 PM Care Teams Floorwalker Relationship Specialty Start Date End Date Jean Gibbons MD [address] [address] PCP - General Family Practice 04/09/18
--- OUTSIDE RECORDS SUMMARY | 2025-07-16 13:10 | XMS_ITS | Encounter Summary ---
Author Organization [facility] Address [address] [place] [address] Care Team Providers Care Diesel Power Shovel Operator Name Role Phone Jean Gibbons MD Primary Care Provider [phone] [phone] Encounter Details Date Type Department Care Team (Latest Contact Info) Description 12/09/2003 Outpatient Historical [facility] Medicine [place] [address] [address] Ben Winters DO NO ADDRESS ON FILE ABDOMINAL PAIN UNSPEC SITE (Primary Dx); DIARRHEA NOS Social History Tobacco Use Types Packs/Day Years Used Date Smoking Tobacco: Never Assessed Comments Unknown Sex and Gender Information Value Date Recorded Sex Assigned at Not on file Legal Sex Female 4:08 AM CLOTH FOLDER MACHINE Gender Identity Not on file Sexual Orientation Not on file documented as of this encounter Plan of Treatment Not on file documented as of this encounter Visit Diagnoses Diagnosis Abdominal pain, unspecified site- Primary Diarrhea documented in this encounter Additional Health Concerns Infection Onset Date Last Indicated Resolved Time R/O COVID-19 10/21/2020 10/21/2020 10/28/2021 9:17 PM CLOTH FOLDER MACHINE documented as of this encounter Care Teams Diesel Power Shovel Operator Relationship Specialty Start Date End Date Jean Gibbons MD [address] [address] PCP - General Family Practice 04/09/18 documented as of this encounter
--- OUTSIDE RECORDS SUMMARY | 2025-07-16 13:11 | XMS_ITS | Encounter Summary ---
Author Organization [facility] Address [address] [place] [address] Care Team Providers Care Chief Credit Officer Name Role Phone Jean Gibbons MD Primary Care Provider [phone] Encounter Details Date Type Department Care Team (Latest Contact Info) Description 07/08/1998 Outpatient Historical [facility] Endocrinology-[facility] [place] [address] [place] [address] Mine Tucker MD [address] [place], [place] [address] Nonspecific abnormal results of other endocrine function study (Primary Dx) Social History Tobacco Use Types Packs/Day Years Used Date Smoking Tobacco: Never Assessed Comments Unknown Sex and Gender Information Value Date Recorded Sex Assigned at Not on file Legal Sex Female 4:08 AM DIETARY AIDE Gender Identity Not on file Sexual Orientation Not on file documented as of this encounter Plan of Treatment Not on file documented as of this encounter Visit Diagnoses Diagnosis Nonspecific abnormal results of other endocrine function study- Primary documented in this encounter Additional Health Concerns Infection Onset Date Last Indicated Resolved Time R/O COVID-19 10/21/2020 10/21/2020 10/28/2021 9:17 PM DIETARY AIDE documented as of this encounter Care Teams Chief Credit Officer Relationship Specialty Start Date End Date Jean Gibbons MD [address] [place] [address] PCP - General Family Practice 04/09/18 documented as of this encounter
--- OUTSIDE RECORDS SUMMARY | 2025-07-16 13:11 | XMS_ITS | Encounter Summary ---
Author Organization [facility] Address [address] [place] [address] Care Team Providers Care Woven Label Designer Name Role Phone Jean Gibbons MD Primary Care Provider [phone] [phone] Encounter Details Date Type Department Care Team (Late st Contact Info) Description 03/16/2020 Ancillary Orders [facility] [address] [facility] [address] [place] [address] Jean Gibbons MD [address] [place] [address] Abnormal mammogram Social History Tobacco Use Types Packs/Day Years Used Date Smoking Tobacco: Former Cigarettes Q uit: 08/12/1990 Smokeless Tobacco: Never Comments:quit in the Alcohol Use Standard Drinks/Week Comments No 0 (1 standard drink = 0.6 oz pur e alcohol) Comments No Sex and Gender Information Value Date Recorded Sex Assigned at Not on file Legal Sex Female 4:08 AM EXECUTIVE ASSISTANT TO GENERAL COUNSEL Gender Identity Not on file Sexual Orientation [...] COVID-19 10/21/2020 10/21/2020 10/28/2021 9:17 PM EXECUTIVE ASSISTANT TO GENERAL COUNSEL Assessment Noted Time PHQ-9 Depression Total Score: 1 01/24/20 19 10:00 AM CDT documented as of this encounter Care Teams Woven Label Designer Relationship Specialty Start Date End Date Jean Gibbons MD [address] [phone] PCP - General Family Practice 04/09/18 documented as of this encounter
--- OUTSIDE RECORDS SUMMARY | 2025-07-16 13:11 | XMS_ITS | Encounter Summary ---
Author Organization [facility] Address [address] [place] [address] Care Team Providers Care Manager Corporate Name Role Phone Jean Gibbons MD Primary Care Provider [phone] [phone] Encounter Details Date Type Department Care Team (Latest Contact Info) Description 05/14/2006 Outpatient Historical [facility] Medicine [place] [address] [address] Ben Winters DO NO ADDRESS ON FILE Unspecified Backache (Primary Dx); Anal or Rectal Pain; Internal Hemorrhoids without Mention of Complication; Screening for Malignant Neoplasm of the Rectum Social History Tobacco Use Types Packs/Day Years Used Date Smoking Tobacco: Never Assessed Comments Unknown Sex and Gender Information Value Date Recorded Sex Assigned at Not on file Legal Sex Female 4:08 AM CONDUCTOR YARD Gender Identity Not on file Sexual Orientation [...] R/O COVID-19 10/21/2020 10/21/2020 10/28/2021 9:17 PM CONDUCTOR YARD documented as of this encounter Care Teams Manager Corporate Relationship Specialty Start Date End Date Jean Gibbons MD [address] [address] PCP - General Family Practice 04/09/18 documented as of this encounter
--- OUTSIDE RECORDS SUMMARY | 2025-07-16 13:11 | XMS_ITS | Encounter Summary ---
Author Organization [facility] Address [address] [place] [address] Care Team Providers Care Health Information Tech Name Role Phone Jean Gibbons MD Primary Care Provider [phone] Encounter Details Date Type Department Care Team (Latest Contact Info) Description 07/08/1998 Outpatient Historical [facility] [address] [address] Nicolas Huntley MD [address] [place] [address] Nonspecific abnormal results of other endocrine function study (Primary Dx) Social History Tobacco Use Types Packs/Day Years Used Date Smoking Tobacco: Never Assessed Comments Unknown Sex and Gender Information Value Date Recorded Sex Assigned at Not on file Legal Sex Female 4:08 AM SCARF GLUER Gender Identity Not on file Sexual Orientation Not on file documented as of this encounter Plan of Treatment Not on file documented as of this encounter Visit Diagnoses Diagnosis Nonspecific abnormal results of other endocrine function study- Primary documented in this encounter Additional Health Concerns Infection Onset Date Last Indicated Resolved Time R/O COVID-19 10/21/2020 10/21/2020 10/28/2021 9:17 PM SCARF GLUER documented as of this encounter Care Teams Health Information Tech Relationship Specialty Start Date End Date Jean Gibbons MD [address] [facility] [address] [place] [address] PCP - General Family Practice 04/09/18 documented as of this encounter
--- OUTSIDE RECORDS SUMMARY | 2025-07-16 13:11 | XMS_ITS | Encounter Summary ---
Author Organization [facility] Address [address] [place] [address] Care Team Providers Care Insurance Professional Name Role Phone Jean Gibbons MD Primary Care Provider [phone] [phone] Encounter Details Date Type Department Care Team (Latest Contact Info) Description 08/27/2006 Outpatient Historical [facility] Medicine [place] [address] [address] Ben Winters DO NO ADDRESS ON FILE Vaccine for influenza (Primary Dx) Social History Tobacco Use Types Packs/Day Years Used Date Smoking Tobacco: Never Assessed Comments Unknown Sex and Gender Information Value Date Recorded Sex Assigned at Not on file Legal Sex Female 4:08 AM ROTARY SWAGING MACHINE OPERATOR Gender Identity Not on file [...] R/O COVID-19 10/21/2020 10/21/2020 10/28/2021 9:17 PM ROTARY SWAGING MACHINE OPERATOR documented as of this encounter Care Teams Insurance Professional Relationship Specialty Start Date End Date Jean Gibbons MD [address] [address] PCP - General Family Practice 04/09/18 documented as of this encounter
--- OUTSIDE RECORDS SUMMARY | 2025-07-16 13:11 | XMS_ITS | Encounter Summary ---
Author Organization [facility] Address [address] [place] [address] Care Team Providers Care Group Contract Analyst Name Role Phone Jean Gibbons MD Primary Care Provider [phone] [phone] Reason for Referral * Radiology Services (Routine) - Closed Specialty Diagnoses / Procedures Referred By Contac t Referred To Contact Diagnoses Abnormal mammogram Procedures MAMMO DIAG BILAT 3D SHAI W OR WO CAD MAMMO DIAGNOSTIC BILATERAL W OR WO CAD CHG DIAGNOSTIC MAMMOGRAPHY COMPUTER-AIDED DETCJ BI CHG DIGITAL BREAST TOMOSYNTHESIS BILATERAL Amberly Lima FNP Phone: tel: fax: [facility] Pre-Registration [place] CALL TO MAKE APPOINTMENT ONLY [address] [place] [address] Phone: tel: fax: Referral ID Status Reason Start Date Expiration Date Visits Re quested Visits Authorized [id number] Closed 02/24/2019 03/26/2020 1 1 Encounter Details Date Type Department Care Team (Late st Contact Info) Description 04/10/2019 Ancillary Orders [facility] [address] [address] Amberly Lima FNP [address] [place] [id number] Abnormal mammogram Social History Tobacco Use Types Packs/Day Years Used Date Smoking Tobacco: Former Cigarettes Q uit: 08/12/1990 Smokeless Tobacco: Never Comments:quit in the Alcohol Use Standard Drinks/Week Comments No 0 (1 standard drink = 0.6 oz pur e alcohol) Comments No Sex and Gender Information Value Date Recorded Sex Assigned at Not on file Legal Sex Female 4:08 AM COAT CHECKER Gender Identity Not on file Sexual Orientation [...] RECOMMENDATIONS: Bilateral diagnostic mammogram in one year. [id number] Procedure Note Edgardo Ambrose MD - 04/16/2019 [...] RECOMMENDATIONS: Bilateral diagnostic mammogram in one year. [id number] Amberly Lima CRITICAL CARE NURSE MAMMO ORDERABLES Final Result documented in this encounter Visit Diagnoses Diagnosis Abnormal mammogram Abnormal mammogram, unspecified Abnormal mammogram Abnormal mammogram, unspecified documented in this encounter Additional Health Concerns Infection Onset Date Last Indicated Resolved Time R/O COVID-19 10/21/2020 10/21/2020 10/28/2021 9:17 PM COAT CHECKER Assessment Noted Time PHQ-9 Depression Total Score: 1 01/24/20 19 10:00 AM CDT documented as of this encounter Care Teams Group Contract Analyst Relationship Specialty Start Date End Date Jean Gibbons MD [address] [phone] PCP - General Family Practice 04/09/18 documented as of this encounter
--- OUTSIDE RECORDS SUMMARY | 2025-07-16 13:11 | XMS_ITS | Encounter Summary ---
Author Organization [facility] Address [address] [place] [address] Care Team Providers Care Mechanical Handyman Name Role Phone Jean Gibbons MD Primary Care Provider [phone] [phone] Encounter Details Date Type Department Care Team (Latest Contact Info) Description 06/09/1998 Outpatient Historical [facility] Endocrinology[facility] [address] [place] [address] Mine Tucker MD [address] [place], [place] [address] Nonspecific abnormal results of other endocrine function study (Primary Dx) Social History Tobacco Use Types Packs/Day Years Used Date Smoking Tobacco: Never Assessed Comments Unknown Sex and Gender Information Value Date Recorded Sex Assigned at Not on file Legal Sex Female 4:08 AM ESCROW CLERK Gender Identity Not on file Sexual Orientation Not on file documented as of this encounter Plan of Treatment Not on file documented as of this encounter Visit Diagnoses Diagnosis Nonspecific abnormal results of other endocrine function study- Primary documented in this encounter Additional Health Concerns Infection Onset Date Last Indicated Resolved Time R/O COVID-19 10/21/2020 10/21/2020 10/28/2021 9:17 PM ESCROW CLERK documented as of this encounter Care Teams Mechanical Handyman Relationship Specialty Start Date End Date Jean Gibbons MD [address] [place] [phone] PCP - General Family Practice 04/09/18 documented as of this encounter
--- OUTSIDE RECORDS SUMMARY | 2025-07-16 13:11 | XMS_ITS | Encounter Summary ---
Author Organization [facility] Address [address] [place] [address] Care Team Providers Care Dairy Equipment Installer Name Role Phone Jean Gibbons MD Primary Care Provider [phone] [phone] Encounter Details Date Type Department Care Team (Latest Contact Info) Description 01/11/2007 Outpatient Historical [facility] Medicine [place] [address] [address] Ben Winters DO NO ADDRESS ON FILE Other Affections of Shoulder Region, not Elsewhere Classified (Primary Dx) Social History Tobacco Use Types Packs/Day Years Used Date Smoking Tobacco: Never Assessed Comments Unknown Sex and Gender Information Value Date Recorded Sex Assigned at Not on file Legal Sex Female 4:08 AM PITCH FLAKER Gender Identity Not on file Sexual Orientation Not on file documented as of this encounter Plan of Treatment Not on file documented as of this encounter Visit Diagnoses Diagnosis Other affections of shoulder region, not elsewhere classified- Primary documented in this encounter Additional Health Concerns Infection Onset Date Last Indicated Resolved Time R/O COVID-19 10/21/2020 10/21/2020 10/28/2021 9:17 PM PITCH FLAKER documented as of this encounter Care Teams Dairy Equipment Installer Relationship Specialty Start Date End Date Jean Gibbons MD [address] [address] PCP - General Family Practice 04/09/18 documented as of this encounter
--- OUTSIDE RECORDS SUMMARY | 2025-07-16 13:11 | XMS_ITS | Encounter Summary ---
Author Organization [facility] Address [address] [place] [address] Care Team Providers Care Stapler Coil Unit Name Role Phone Jean Gibbons MD Primary Care Provider [phone] [phone] Encounter Details Date Type Department Care Team (Latest Contact Info) Description 07/03/2006 Outpatient Historical [facility] Medicine [place] [address] [address] Ben Winters DO NO ADDRESS ON FILE Unspecified Backache (Primary Dx); Unspecified Essential Hypertension; Generalized Osteoarthrosis, Involving Multiple Sites Social History Tobacco Use Types Packs/Day Years Used Date Smoking Tobacco: Never Assessed Comments Unknown Sex and Gender Information Value Date Recorded Sex Assigned at Not on file Legal Sex Female 4:08 AM CULTURED MARBLE PRODUCTS MAKER Gender Identity Not on file Sexual Orientation Not on file documented as of this encounter Plan of Treatment Not on file documented as of this encounter Visit Diagnoses Diagnosis Backache, unspecified- Primary Unspecified essential hypertension Generalized osteoarthrosis, involving multiple sites documented in this encounter Additional Health Concerns Infection Onset Date Last Indicated Resolved Time R/O COVID-19 10/21/2020 10/21/2020 10/28/2021 9:17 PM CULTURED MARBLE PRODUCTS MAKER documented as of this encounter Care Teams Stapler Coil Unit Relationship Specialty Start Date End Date Jean Gibbons MD [address] [address] PCP - General Family Practice 04/09/18 documented as of this encounter
--- OUTSIDE RECORDS SUMMARY | 2025-07-16 13:11 | XMS_ITS | Encounter Summary ---
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
--- OUTSIDE RECORDS SUMMARY | 2025-07-16 13:11 | XMS_ITS | Encounter Summary ---
Author Organization [facility] Address [address] [place] [address] Care Team Providers Care Track Grinder Name Role Phone Jean Gibbons MD Primary Care Provider [phone] [phone] Encounter Details Date Type Department Care Team (Latest Contact Info) Description 01/17/2006 Outpatient Historical [facility] Medicine [place] [address] [address] Ben Winters DO NO ADDRESS ON FILE Open Wound of Foot (Primary Dx) Social History Tobacco Use Types Packs/Day Years Used Date Smoking Tobacco: Never Assessed Comments Unknown Sex and Gender Information Value Date Recorded Sex Assigned at Not on file Legal Sex Female 4:08 AM HOSPITALIST PROGRAM DIRECTOR Gender Identity Not on file Sexual Orientation Not on file documented as of this encounter Plan of Treatment Not on file documented as of this encounter Visit Diagnoses Diagnosis Open wound of foot except toe(s) alone, without mention of complication- Primary documented in this encounter Additional Health Concerns Infection Onset Date Last Indicated Resolved Time R/O COVID-19 10/21/2020 10/21/2020 10/28/2021 9:17 PM HOSPITALIST PROGRAM DIRECTOR documented as of this encounter Care Teams Track Grinder Relationship Specialty Start Date End Date Jean Gibbons MD [address] [address] PCP - General Family Practice 04/09/18 documented as of this encounter
--- OUTSIDE RECORDS SUMMARY | 2025-07-16 13:11 | XMS_ITS | Encounter Summary ---
Author Organization [facility] Address [address] [place] [address] Care Team Providers Care Escalator Installer Name Role Phone Jean Gibbons MD Primary Care Provider [phone] [phone] Encounter Details Date Type Department Care Team (Late st Contact Info) Description 09/10/1998 Outpatient Historical [facility] Neurology [address], [address] [place] [address] Nicolas Oviedo MD [address] [place] [address] Carpal tunnel syndrome (Primary Dx) Social History Tobacco Use Types Packs/Day Years Used Date Smoking Tobacco: Never Assessed Comments Unknown Sex and Gender Information Value Date Recorded Sex Assigned at Not on file Legal Sex Female 4:08 AM ROTARY ENVELOPE MACHINE OPERATOR Gender Identity Not on file Sexual Orientation Not on file documented as of this encounter Plan of Treatment Not on file documented as of this encounter Visit Diagnoses Diagnosis Carpal tunnel syndrome- Primary documented in this encounter Additional Health Concerns Infection Onset Date Last Indicated Resolved Time R/O COVID-19 10/21/2020 10/21/2020 10/28/2021 9:17 PM ROTARY ENVELOPE MACHINE OPERATOR documented as of this encounter Care Teams Escalator Installer Relationship Specialty Start Date End Date Jean Gibbons MD [address] [place] [phone] PCP - General Family Practice 04/09/18 documented as of this encounter
--- OUTSIDE RECORDS SUMMARY | 2025-07-16 13:11 | XMS_ITS | Encounter Summary ---
Author Organization [facility] Address [address] [place] [address] Care Team Providers Care Elementary Classroom Teacher Name Role Phone Jean Gibbons MD Primary Care Provider [phone] [phone] Encounter Details Date Type Department Care Team (Late st Contact Info) Description 08/31/1998 Outpatient Historical [facility] Neurology [address], [address] [place] [address] Nicolas Oviedo MD [address] [place] [address] Pain in limb (Primary Dx) Social History Tobacco Use Types Packs/Day Years Used Date Smoking Tobacco: Never Assessed Comments Unknown Sex and Gender Information Value Date Recorded Sex Assigned at Not on file Legal Sex Female 4:08 AM CLUTCH SPECIALIST Gender Identity Not on file Sexual Orientation Not on file documented as of this encounter Plan of Treatment Not on file documented as of this encounter Visit Diagnoses Diagnosis Pain in limb- Primary Pain in soft tissues of limb documented in this encounter Additional Health Concerns Infection Onset Date Last Indicated Resolved Time R/O COVID-19 10/21/2020 10/21/2020 10/28/2021 9:17 PM CLUTCH SPECIALIST documented as of this encounter Care Teams Elementary Classroom Teacher Relationship Specialty Start Date End Date Jean Gibbons MD [address] [place] [phone] PCP - General Family Practice 04/09/18 documented as of this encounter
--- NOTE | 2025-07-16 13:16 | W.ED.WEAKNES ---
HPI - Weakness General: Chief complaint: Weakness Stated complaint: weakness - ams Time Seen by Provider: 07/16/25 13:01 Source: patient and EMS Mode of arrival: EMS Limitations: no limitations History of Present Illness: 80-year-old female who was found today in the floor by her granddaughter. Patient last seen normal yesterday she states that she was not able to get up out of 4 and feeling extremely weak she states she had been feeling weak for 3 days per EMS patient seems to get confused at time and was talking about a wedding in her yard. Patient here now is answer my question appropriately but states she feels like she cannot walk due to extreme weakness. Denies any chest pain denies any fever Associated symptoms: Denies chest pain, chills, fever(s), headache(s), nausea or vomiting Related Data Home Medications ?Medication ?Instructions ?Recorded ?Confirmed fluticasone propionate 50 2 spray intranasal DAILY 08/24/20 07/14/25 mcg/actuation nasal spray,suspension (Flonase Allergy Relief) hydroxyzine HCl 25 mg tablet 25 mg PO TID PRN Anxiety 08/24/20 07/14/25 propylthiouracil 50 mg tablet 50 mg PO TID 08/24/20 07/14/25 tramadol 50 mg tablet 50 mg PO Q8H PRN Pain 08/24/20 07/14/25 multivitamin 1 tab PO DAILY 11/07/21 07/14/25 bupropion HCl 150 mg 24 hr tablet, 150 mg PO BID 04/30/24 07/14/25 extended release betamethasone, augmented 0.05 % 1 applic topical BID PRN Skin 04/04/25 07/14/25 topical ointment Irritation cranberry fruit 200 mg-dandelion 1 cap PO DAILY 04/04/25 07/14/25 50 mg-goldenseal 20 mg-herbs capsule (Urinary Cranberry Blend) losartan 100 mg tablet 100 mg PO DAILY 04/04/25 07/14/25 ondansetron 4 mg disintegrating 4 mg PO Q8H PRN Nausea And Vomiting 04/04/25 07/14/25 tablet vitamin B complex 1 tab PO DAILY 04/04/25 07/14/25 aspirin 81 mg tablet 81 mg PO DAILY 07/14/25 07/14/25 Previous Rx's ?Medication ?Instructions ?Recorded custom inserts #1 ea 02/22/24 metoprolol tartrate 50 mg tablet 50 mg PO BID #180 tabs 10/27/24 potassium chloride 8 mEq 8 meq PO DAILY #90 tabs 06/29/25 tablet,extended release (Klor-Con) amiodarone 200 mg tablet See Rx Instructions .Route 07/02/25 .COMPLEX #180 tabs furosemide 20 mg tablet (Lasix) 20 mg PO DAILY #90 tabs 07/03/25 Allergies Allergy/AdvReac Type Severity Reaction Status Date / Time Alpha-Gal Allergy Unknown Verified 07/14/25 09:33 (Ccrepnhzo-Qdauo-7,3-Gala citalopram (From Celexa) Allergy NA Verified 07/14/25 09:33 clarithromycin Allergy NA Verified 07/14/25 09:33 clindamycin Allergy NA Verified 07/14/25 09:33 doxepin Allergy NA Verified 07/14/25 09:33 hydrocodone Allergy NA Verified 07/14/25 09:33 ibuprofen Allergy NA Verified 07/14/25 09:33 levofloxacin Allergy NA Verified 07/14/25 09:33 lisinopril Allergy NA Verified 07/14/25 09:33 naproxen (From Aleve) Allergy NA Verified 07/14/25 09:33 Penicillins Allergy NA Verified 07/14/25 09:33 pseudoephedrine Allergy NA Verified 07/14/25 09:33 red dye Allergy NA Verified 07/14/25 09:33 Sulfa (Sulfonamide Allergy NA Verified 07/14/25 09:33 Antibiotics) venlafaxine Allergy NA Verified 07/14/25 09:33 Review of Systems Const: Reports: fatigue and malaise; Denies: fever(s), chills, body aches or change in appetite ENMT: Denies: throat pain or dental pain Card: Denies: chest pain Resp: Denies: dyspnea GI: Denies: abdominal pain, nausea, vomiting or diarrhea Musc: Denies: neck pain or back pain Skin/Breast: Denies: rash Neuro: Denies: headache(s) PFSH ED PFSH: Medical History (Updated 07/16/25 @ 16:19 by Linda Chapman MD) No pertinent past medical history NEGHX:DM,DVT/PE PCP: Shai New and Amberly Lima Anxiety Hypothyroidism Family hx of colon cancer Atrial fibrillation Heart failure with reduced ejection fraction Hyperlipidemia COPD (chronic obstructive pulmonary disease) HTN (hypertension) Recurrent UTI Surgical History Hx of hysterectomy (~1985) 1985 INOCENCIO, BSO performed by Dr. Gonzalez Due to bleeding and cervical polyps S/P appendectomy S/P sinus surgery S/P cataract surgery S/P tonsillectomy S/P bunionectomy S/P cholecystectomy S/P shoulder surgery Family History Mother , 82 Breast cancer dx age later in life Denies family history of Colon cancer Ovarian cancer Diabetes Heart disease Hypercholesteremia Hypertension Uterine cancer Thyroid disease Stroke Social History Smoking and tobacco/nicotine status: former use of tobacco/nicotine Physical Exam Const: COMMON NORMALS: patient oriented x3 GENERAL APPEARANCE: frail appearing HENMT: COMMON NORMALS: normocephalic and atraumatic HEAD & SCALP: normocephalic and atraumatic Eye: COMMON NORMALS: Equal, round and reactive pupils present and EOMs intact bilaterally PUPIL: Yes Equal, round and reactive pupils present Neck/C-Spine: COMMON NORMALS: full ROM and supple Chest: COMMONS NORMALS: normal inspection of the chest and normal palpation of entire chest wall Resp: COMMON NORMALS: normal respiratory effort, No retractions, No use of accessory muscles and clear to auscultation bilaterally AUSCULTATION: clear to auscultation bilaterally Cardio: COMMON NORMALS: regular rate, regular rhythm and No murmurs present (Cardio) RATE: regular rate RHYTHM: regular rhythm GI: COMMON NORMALS: Normal to inspection, nondistended, normoactive bowel sounds present, Soft to palpation, non-tender and no masses PALPATION: Yes Soft to palpation Extremity: COMMON NORMALS: normal to inspection and full ROM Neuro: COMMON NORMALS: patient oriented x3, moves all extremities and no focal motor deficits Psych: COMMON NORMALS: mental status grossly normal, Normal thought process present and cooperative THOUGHT PROCESS: Normal thought process present Skin: COMMON NORMALS: no rashes or lesions noted and no wounds GENERAL SKIN EXAM: no rashes or lesions noted Course Vital Signs: Vital signs: Vital Signs Temperature 98.4 F 07/16/25 13:11 Pulse Rate 72 07/16/25 15:20 Respiratory Rate 16 07/16/25 15:20 Blood Pressure 161/76 07/16/25 15:20 Pulse Oximetry 98 07/16/25 15:20 Oxygen Delivery Me thod Room Air 07/16/25 15:20 MDM - Weakness Medical Decision Making Patient presents here with generalized weakness she has been laying on the floor overnight and could not get up because of a slightly elevated white count could be from laying on the floor she is no signs of infection here x-ray urinalysis are normal patient is not able to ambulate here will admit her for her weakness. Medical Records I reviewed the patient's medical records. Lab Data I reviewed the patient's lab results. 07/16/25 14:22 07/16/25 14:22 Radiology Impressions Chest X-Ray 07/16/25 13:06 Impression: Atherosclerosis. Head CT 07/16/25 13:06 IMPRESSION: 1. No acute intracranial hemorrhage or edema. 2. Moderate cerebral atrophy and mild small vessel disease. Similar to the prior study. Laboratory Results WBC 15.98 10^3/uL (3.29-11.43) H 07/16/25 14:22 RBC 3.38 10^6/uL (3.85-5.65) L 07/16/25 14:22 Hgb 11.20 g/dL (11.27-16.99) L 07/16/25 14:22 Hct 34.2 % (36-47) L 07/16/25 14:22 MCV 101.2 fl (85-98) H 07/16/25 14:22 MCH 33.1 pg (27-33) H 07/16/25 14:22 MCHC 32.7 g/dL (30-55) 07/16/25 14:22 RDW 20.0 % (12.1-15.1) H 07/16/25 14:22 Plt Count 409 10^3/cmm (157-399) H 07/16/25 14:22 MPV 10.6 fL (7.4-10.4) H 07/16/25 14:22 Neut % (Auto) 77.0 % 07/16/25 14:22 Lymph % (Auto) 13.2 % 07/16/25 14:22 Baker % (Auto) 8.1 % 07/16/25 14:22 Eos % (Auto) 0.8 % 07/16/25 14:22 Baso % (Auto) 0.3 % 07/16/25 14:22 Neut # (Auto) 12.30 10^3/uL (1.8-7.7) H 07/16/25 14:22 Lymph # (Auto) 2.1 10^3/uL (0.8-4.8) 07/16/25 14:22 Baker # (Auto) 1.3 10^3/uL (0.2-0.9) H 07/16/25 14:22 Eos # (Auto) 0.1 10^3/uL (0.0-0.8) 07/16/25 14:22 Baso # (Auto) 0.1 10^3/uL (0.0-0.1) 07/16/25 14:22 Nucleated RBC % (auto) 0.4 % 07/16/25 14:22 Nucleated RBCs # 0.1 /100WBC 07/16/25 14:22 Sodium 138 mmol/L (136-145) 07/16/25 14:22 Potassium 3.8 mmol/L (3.5-5.1) 07/16/25 14:22 Chloride 98 mmol/L (98-107) 07/16/25 14:22 Carbon Dioxide 26 mmol/L (22-29) 07/16/25 14:22 Anion Gap 17.8 (5-19) 07/16/25 14:22 BUN 31 mg/dL (8-23) H 07/16/25 14:22 Creatinine 1.0 mg/dL (0.5-0.9) H 07/16/25 14:22 GFR Calculation Not Reportable 07/16/25 14:22 Glucose 102 mg/dL (65-115) 07/16/25 14:22 Calculated Osmolality 293 mOsm/kg (285-295) 07/16/25 14:22 Lactic Acid 1.9 mmol/L (0.5-2.2) 07/16/25 14:22 Calcium 9.7 mg/dL (8.5-10.5) 07/16/25 14:22 Magnesium 2.2 mg/dL (1.7-2.3) 07/16/25 14:22 Total Bilirubin 3.0 mg/dL (0.15-1.2) H 07/16/25 14:22 AST 65 U/L (0-32) H 07/16/25 14:22 ALT 38 U/L (0-33) H 07/16/25 14:22 Alkaline Phosphatase 88 U/L (35-105) 07/16/25 14:22 Creatine Kinase 340 U/L (26-192) H* 07/16/25 14:22 Troponin T Baseline 40 ng/L (0-10) H 07/16/25 14:22 Total Protein 5.7 g/dL (6.6-8.7) L 07/16/25 14:22 Albumin 3.9 g/dL (3.5-5.2) 07/16/25 14:22 Globulin 1.8 g/dL (1.3-4.6) 07/16/25 14:22 Lipase 19 U/L (13-60) 07/16/25 14:22 TSH 1.22 uIU/mL (0.27-4.20) 07/16/25 14:22 Urine Color [place] (Yellow) A 07/16/25 15:09 Urine Appearance Clear (CLEAR) 07/16/25 15:09 Urine pH 5.0 (5-7) 07/16/25 15:09 Ur Specific [place] 1.022 (1.005-1.030) 07/16/25 15:09 Urine Protein 1+ (Negative) A 07/16/25 15:09 Urine Glucose (UA) Negative (Normal) 07/16/25 15:09 Urine Ketones Trace (Negative) 07/16/25 15:09 Urine Blood Negative (Negative) 07/16/25 15:09 Urine Nitrate Negative (Negative) 07/16/25 15:09 Urine Bilirubin 1+ (Negative) H 07/16/25 15:09 Urine Urobilinogen 1.0 mg/dL (Negative) 07/16/25 15:09 Ur Leukocyte Esterase Trace (Negative) A 07/16/25 15:09 Urine RBC 0-2 /hpf (0-2) 07/16/25 15:09 Urine WBC 0-5 /hpf (0-5) 07/16/25 15:09 Ur Squamous Epith Cells 0-5 /hpf (0-5) 07/16/25 15:09 Amorphous Sediment Not Reportable 07/16/25 15:09 Urine Bacteria None seen /hpf (NONE) 07/16/25 15:09 Hyaline Casts 4.52 /lpf 07/16/25 15:09 Urine Yeast 1+ /hpf H 07/16/25 15:09 All radiology interpretation(s) finalized by discharge EKG Data EKG 1: I personally reviewed and interpreted this EKG as follows: EKG interpretation date: 07/16/25 EKG interpretation time: 13:09 Interpretation: nsr hr [address] elevation qrs 116 qtc 422 Discharge Plan Discharge Patient Disposition: Admitted As Inpatient Clinical Impression: Generalized weakness Condition: Stable Coding Level of Care Code ED Resource Conservationist for Alyson Dee
[2025-07-16 14:34] LABS: Hematocrit 34.2 % (36-47); Hemoglobin 11.20 g/dL (11.27-16.99); Mean Corpuscular HGB Conc 32.7 g/dL (30-55); Mean Corpuscular Hemoglobin 33.1 pg (27-33); Mean Corpuscular Volume 101.2 fl (85-98); Nucleated Red Blood Cells % 0.4 %; Platelet Count 409 10^3/cmm (157-399); Red Blood Count 3.38 10^6/uL (3.85-5.65); White Blood Count 15.98 10^3/uL (3.29-11.43)
[2025-07-16 14:48] LABS: Troponin(5th) Baseline 40 ng/L (0-10)
[2025-07-16 15:00] LABS: Alanine Aminotransferase 38 U/L (0-33); Anion Gap 17.8 (5-19); Aspartate Amino Transferase 65 U/L (0-32); Blood Urea Nitrogen 31 mg/dL (8-23); Calcium 9.7 mg/dL (8.5-10.5); Carbon Dioxide 26 mmol/L (22-29); Chloride 98 mmol/L (98-107); Creatinine Clr Calc Pharmacy 41.9098; Glucose 102 mg/dL (65-115); Magnesium 2.2 mg/dL (1.7-2.3); Osmolality Calculated 293 mOsm/kg (285-295); Potassium 3.8 mmol/L (3.5-5.1); Sodium 138 mmol/L (136-145)
[2025-07-16 15:01] LABS: Albumin Level 3.9 g/dL (3.5-5.2); Alkaline Phosphatase 88 U/L (35-105); Globulin 1.8 g/dL (1.3-4.6); Lipase 19 U/L (13-60); Thyroid Stimulating Hormone 1.22 uIU/mL (0.27-4.20); Total Protein 5.7 g/dL (6.6-8.7)
[2025-07-16 15:03] LABS: Lactic Sepsis W/Reflex 1.9 mmol/L (0.5-2.2)
--- NOTE | 2025-07-16 15:16 | ECG_ITS ---
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 Measurements Intervals [place] Rate: 67 P: 84 FL: 245 QRS: -29 QRSD: 118 T: 119 QT: 429 QTc: 454 Interpretive Statements SINUS RHYTHM WITH FIRST DEGREE AV BLOCK ANTEROSEPTAL MYOCARDIAL INFARCTION , OF INDETERMINATE AGE [40+ ms Q WAVE IN V1-V4] MODERATE T-WAVE ABNORMALITY, CONSIDER LATERAL ISCHEMIA [-0.1+ mV T-WAVE IN I/aVL/V5/V6] Compared to ECG 07/16/2025 13:09:25 T-wave abnormality now present Possible ischemia now present Myocardial infarct finding still present Electronically Signed On 07-17-2025 09:28:55 CDT by Clover Mcguire M.D. [email or web address]
[2025-07-16 15:27] LABS: Glucose Urine UA Negative (Normal); Nitrate Urine Negative (Negative); Specific Gravity, Urine 1.022 (1.005-1.030)
[2025-07-16 15:32] LABS: Add Urine Microscopic? YES
[2025-07-16 15:47] LABS: UA Slide Review UA Slide Review Perf
--- NOTE | 2025-07-16 16:35 | PC.PHAR ---
Verified Medication with pharmacy , Patient wasn't awke to verify.
[2025-07-16 16:45] LABS: Troponin 5 2HR 35.28 ng/L (0-10)
[2025-07-16 16:49] LABS: Troponin 5 2HR Delta -4.72 ABS# (0-10)
--- NOTE | 2025-07-16 16:56 | PM.HP ---
Providers/Chief Complaint Primary Care Provider: Jean Gibbons Chief Complaint: weakness - ams History of Present Illness History taken through chart review and correlation with ER physician Cris Anaya Shaq is a 80 year old female with past medical history of atrial fibrillation, systolic congestive heart failure, hypothyroidism, COPD, hypertension, recurrent UTI presents to the ER today was brought into the ER today by her family when she was found at home today by her granddaughter on the floor. Last known normal is yesterday. Patient examination seems confused. She is alert oriented only to self, date of , address. States she is not sure why she is in the hospital but she thinks because she busted her finger. Denies any pain, nausea, vomiting, diarrhea. She thinks she lives with her brother. As per the ER documentation patient had stated that she has been getting weak recently and fell onto the ground and was not able to get up. Review of Systems General: Reports: ROS unobtainable due to mental status Medications/Allergies Home Medications ?Medication ?Instructions ?Recorded ?Confirmed ?Last Taken ?Type fluticasone propionate 50 2 spray intranasal DAILY 08/24/20 07/16/25 04/03/25 History mcg/actuation nasal spray,suspension (Flonase Allergy Relief) hydroxyzine HCl 25 mg tablet 25 mg PO TID PRN Anxiety 08/24/20 07/16/25 Unknown History propylthiouracil 50 mg tablet 50 mg PO TID 08/24/20 07/16/25 12/12/20 20:00 History tramadol 50 mg tablet 50 mg PO Q8H PRN Pain 08/24/20 07/16/25 12/12/20 20:00 History multivitamin 1 tab PO DAILY 11/07/21 07/16/25 04/03/25 History custom inserts #1 ea 02/22/24 07/16/25 Unknown Rx bupropion HCl 150 mg 24 hr tablet, 150 mg PO BID 04/30/24 07/16/25 04/03/25 History extended release metoprolol tartrate 50 mg tablet 50 mg PO BID #180 tabs 10/27/24 07/16/25 04/03/25 Rx cranberry fruit 200 mg-dandelion 1 cap PO DAILY 04/04/25 07/16/25 04/03/25 History 50 mg-goldenseal 20 mg-herbs capsule (Urinary Cranberry Blend) losartan 100 mg tablet 100 mg PO DAILY 04/04/25 07/16/25 04/03/25 History ondansetron 4 mg disintegrating 4 mg PO Q8H PRN Nausea And Vomiting 04/04/25 07/16/25 Unknown History tablet vitamin B complex 1 tab PO DAILY 04/04/25 07/16/25 04/03/25 History potassium chloride 8 mEq 8 meq PO DAILY #90 tabs 06/29/25 07/16/25 Unknown Rx tablet,extended release (Klor-Con) amiodarone 200 mg tablet See Rx Instructions .Route 07/02/25 07/16/25 Unknown Rx .COMPLEX #180 tabs furosemide 20 mg tablet (Lasix) 20 mg PO DAILY #90 tabs 07/03/25 07/16/25 Unknown Rx aspirin 81 mg tablet 81 mg PO DAILY 07/14/25 07/16/25 Unknown History doxycycline hyclate 100 mg tablet 100 mg PO BID 07/16/25 07/16/25 Unknown History Allergies Allergy/AdvReac Type Severity Reaction Status Date / Time Alpha-Gal Allergy Unknown Verified 07/14/25 09:33 (Mpeyhjvyi-Lnxdj-3,3-Gala citalopram (From Celexa) Allergy NA Verified 07/14/25 09:33 clarithromycin Allergy NA Verified 07/14/25 09:33 clindamycin Allergy NA Verified 07/14/25 09:33 doxepin Allergy NA Verified 07/14/25 09:33 hydrocodone Allergy NA Verified 07/14/25 09:33 ibuprofen Allergy NA Verified 07/14/25 09:33 levofloxacin Allergy NA Verified 07/14/25 09:33 lisinopril Allergy NA Verified 07/14/25 09:33 naproxen (From Aleve) Allergy NA Verified 07/14/25 09:33 Penicillins Allergy NA Verified 07/14/25 09:33 pseudoephedrine Allergy NA Verified 07/14/25 09:33 red dye Allergy NA Verified 07/14/25 09:33 Sulfa (Sulfonamide Allergy NA Verified 07/14/25 09:33 Antibiotics) venlafaxine Allergy NA Verified 07/14/25 09:33 PFSH Acute PFSH: Medical History (Updated 07/16/25 @ 18:31 by Bravo Hernandez MD) Recurrent UTI Anxiety Hypothyroidism Family hx of colon cancer Atrial fibrillation Heart failure with reduced ejection fraction Hyperlipidemia COPD (chronic obstructive pulmonary disease) HTN (hypertension) Surgical History Hx of hysterectomy (~1985) 1985 INOCENCIO, BSO performed by Dr. Gonzalez Due to bleeding and cervical polyps S/P appendectomy S/P sinus surgery S/P cataract surgery S/P tonsillectomy S/P bunionectomy S/P cholecystectomy S/P shoulder surgery Family History Mother , 82 Breast cancer dx age later in life Denies family history of Colon cancer Ovarian cancer Diabetes Heart disease Hypercholesteremia Hypertension Uterine cancer Thyroid disease Stroke Social History Smoking and tobacco/nicotine status: former use of tobacco/nicotine Vitals/I&O/Wt Last Vital Signs Temp 98.4 F 07/16/25 13:11 Pulse 83 07/16/25 16:40 Resp 16 07/16/25 15:20 BP 119/51 07/16/25 16:40 Pulse Ox 96 07/16/25 16:40 O2 Del Method Room Air 07/16/25 15:20 Weight last 48 hrs Weight 58.967 kg Physical Exam Narrative: General: No acute distress, AO x 2 to 3, confused, dehydrated HEENT: PERRLA, pupils bilaterally equal and reactive Chest: Normal vesicular breath sounds, no added sounds, equal good air entry bilaterally CVS: S1-S2 regular, no murmurs, no tachycardia, no gallops, no rubs Abdomen: Soft, nontender, no organomegaly, bowel sounds present Neuro: No focal deficits, no facial deformity, AO x3, power 5/5 in all limbs Data 07/17/25 05:10 07/17/25 05:10 A&P Assessment and plan 1. Generalized weakness: 2. Confusion: 3. Heart failure with reduced ejection fraction: 4. Atrial fibrillation: 5. Uncontrolled hypertension: 6. Elevated CPK: 7. Hypothyroidism: 8. 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 Leukocytosis: 10. Recurrent UTI: Plan: 80-year-old female with past medical history of MDS, CHF with reduced ejection fraction, A-fib, hypertension presents to the ER today with family when she was found down with complaints of generalized weakness, mild confusion found to be dehydrated with elevated CPK Leukocytosis: Patient does have history of recurrent UTIs. Leukocytosis could be in setting of hemoconcentration due to dehydration. Also has thrombocytosis and elevated hemoglobin than her baseline. Check blood culture, urine culture, trend procalcitonin. Appreciate chest x-ray negative for pneumonia. Empirically start on IV Meropenem for now. Patient is allergic to penicillin. NS at 75 cc/h. Watch for fluid overload. Patient has a history of CHF with reduced ejection fraction. CHF: Check echocardiogram. Watch for fluid overload. Last echocardiogram from 2020 in the chart shows EF 40 to 45%, global LV hypokinesia, regional wall motion medical hypokinesia of anteroseptal wall. Elevated CPK: Most likely setting of dehydration and found on fluid. Fluid as above. Hypertension: Currently uncontrolled. Goal blood pressure less than 140/90 mmHg. Continue with home dose of metoprolol. Holding off on losartan given mild dehydration and JAVIER. Add amlodipine 10 mg oral daily. IV hydralazine 10 mg every 4 hours as needed for systolic or more than 160 mmHg. Uptitrate or start losartan depending on blood pressures and hydration. Check A1c, lipid panel, vitamin B12, folate level, iron panel. Hyperbilirubinemia: Associated with mild AST elevation. No abdominal pain. Continue to monitor for now. If remains elevated will plan for CT abdomen pelvis/gallbladder ultrasound. Generalized weakness: CT head on admission negative for acute abnormality. PT/OT. Check urine drug screen, TSH, B12 level. Watch for hypoglycemia. Confusion: Could be in setting of dehydration. Cannot rule out underlying dementia. Need to confirm more with family. CT head negative for acute abnormality. Atrial fibrillation: Currently rate controlled. Telemetry. Continuing home dose of amiodarone and metoprolol. 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
[2025-07-16 17:26] LABS: Procalcitonin 0.07 ng/mL (0-0.5)
[2025-07-16] MEDS: hyDRALAzine 20 mg/mL INJ 1 mL 10 MG IVP (18:00)
[2025-07-16] MEDS: meropenem 1,000 mg SDV 1000 MG IVP (18:51)
[2025-07-16] MEDS: pantoprazole 40 mg SDV IVP (18:51)
[2025-07-16] MEDS: heparin 5,000 unit/mL INJ 1 mL 5000 UNIT SUBCUT (18:51)
[2025-07-16 20:54] LABS: MRSA PCR OZH (swab) NOT DETECTED (Not Detecte)
[2025-07-17] VITALS (9 sets, daily range): BP systolic 130–165; BP diastolic 57–69; PULSE 56–71; RESP 15–19; TEMP 36.6–37.1; O2SAT 94–99
[2025-07-17 05:33] LABS: Hematocrit 30.4 % (36-47); Hemoglobin 10.10 g/dL (11.27-16.99); Mean Corpuscular HGB Conc 33.2 g/dL (30-55); Mean Corpuscular Hemoglobin 33.3 pg (27-33); Mean Corpuscular Volume 100.3 fl (85-98); Nucleated Red Blood Cells % 0.2 %; Platelet Count 312 10^3/cmm (157-399); Red Blood Count 3.03 10^6/uL (3.85-5.65); White Blood Count 10.69 10^3/uL (3.29-11.43)
[2025-07-17] MEDS: meropenem 1,000 mg SDV 1000 MG IVP (05:55)
[2025-07-17] MEDS: heparin 5,000 unit/mL INJ 1 mL 5000 UNIT SUBCUT ×2 (05:55→17:43)
[2025-07-17 05:58] LABS: Alanine Aminotransferase 29 U/L (0-33); Albumin Level 3.3 g/dL (3.5-5.2); Alkaline Phosphatase 74 U/L (35-105); Anion Gap 14.5 (5-19); Aspartate Amino Transferase 40 U/L (0-32); Blood Urea Nitrogen 23 mg/dL (8-23); Calcium 8.8 mg/dL (8.5-10.5); Carbon Dioxide 24 mmol/L (22-29); Chloride 103 mmol/L (98-107); Creatinine Clr Calc Pharmacy 52.3873; Globulin 1.8 g/dL (1.3-4.6); Glucose 84 mg/dL (65-115); Magnesium 2.1 mg/dL (1.7-2.3); Osmolality Calculated 289 mOsm/kg (285-295); Potassium 3.5 mmol/L (3.5-5.1); Sodium 138 mmol/L (136-145); Total Protein 5.1 g/dL (6.6-8.7)
[2025-07-17 06:04] LABS: Procalcitonin 0.07 ng/mL (0-0.5)
[2025-07-17] MEDS: fluticasone nasal spray 16gm Btl 2 SPRAY INTRANASAL (08:08)
--- NOTE | 2025-07-17 08:45 | PC.NURSE ---
Morning metoprolol 50mg not administered as HR was 58. Dr. Cervantes notified.
--- NOTE | 2025-07-17 12:46 | CT_ITS ---
WS: [id number] CT ABDOMEN AND PELVIS NONCONTRAST HISTORY: Hyperbilirubinemia TECHNIQUE: Imaging performed through the abdomen and pelvis. Coronal and sagittal reformats are submitted. All CT scans at [facility] use at least one of these dose optimization techniques: automated exposure control; mA and/or kV adjustment per patient size (includes targeted exams where dose is matched to clinical indication); or iterative reconstruction. DLP: 385.53 mGy.cm COMPARISON: None available. Lower thorax: Lung bases are clear. Visualized heart is normal. No hiatal hernia. Liver: Normal size liver. No mass or bile duct dilatation. Gallbladder: Prior cholecystectomy. Pancreas: Atrophied. Head is poorly visualized. Spleen: Central calcification is probably arterial in origin. Adrenal glands: Normal. No mass. Right kidney: Normal size kidney with no mass or hydronephrosis. Left kidney: Normal size kidney with no mass or hydronephrosis. Aorta: Moderate diffuse atherosclerotic plaque. Aneurysmal dilatation 2.8 cm in the infrarenal aorta. Dense calcification continues into the iliac arteries. Calcified plaque continues into the celiac axis and SMA. Tiny amount of free fluid in the pelvis. Soft tissue anasarca. No adenopathy identified. GI tract: Stomach is is markedly distended. There are a few high density foci within the stomach which may be medicinal. There does appear to be soft tissue within the stomach which may be food products. Consider gastroparesis. No small bowel obstruction. Diffuse constipation. No obstructing lesions. Sigmoid diverticulosis. Abdominal wall: Negative. No hernia. Pelvis: Tiny amount of free fluid in the pelvis. Urinary bladder is negative. Osseous structures: Advanced degenerative disc disease in the lumbar spine. Mild anterior wedging of T11 by 20%. Remote RIGHT rib fractures with healing. CT/CT abdomen pelvis wo con [id number] IMPRESSION: 1. No free air or GI tract obstruction. 2. There is marked distention of the stomach with what appears to be food prod ucts and/or medicinal tablets. 3. Diffuse constipation. 4. Infrarenal abdominal aortic aneurysm at 2.8 cm. 5. Mild soft tissue anasarca. 6. Prior cholecystectomy.
--- NOTE | 2025-07-17 12:48 | P.PN_ITS ---
Subjective 2 Subjective: No acute events overnight. Patient sleeping on examination. Wakes up to verbal stimulus. More awake and alert. Able to have complete conversation. States she is aware that she is in the hospital. Not aware why she is in the hospital. Does not remember falling at home. Does state that she has been feeling weak. Complaining of pain in her neck and shoulder. States pain is chronic. Vitals/I&O/Wt Last Vital Signs Temp 98.1 F 07/17/25 11:09 Pulse 64 07/17/25 11:09 Resp 16 07/17/25 11:09 BP 165/65 07/17/25 11:09 Pulse Ox 98 07/17/25 11:09 O2 Del Method Room Air 07/17/25 11:09 O2 Flow Rate 1 07/17/25 08:50 07/16/25 07/17/25 07/17/25 22:59 06:59 14:59 Intake Total 1000 / 1000 120 / 1120 Output Total 300 / 300 200 / 500 250 / 250 Balance 700 / 700 -80 / 620 -250 / -250 Weight last 48 hrs Weight 58.967 kg Weight 58.967 kg Weight 58.967 kg Physical Exam 2 Narrative: General: No acute distress, AO x 2 to 3, confused, HEENT: PERRLA, pupils bilaterally equal and reactive Chest: Normal vesicular breath sounds, no added sounds, equal good air entry bilaterally CVS: S1-S2 regular, no murmurs, no tachycardia, no gallops, no rubs Abdomen: Soft, nontender, no organomegaly, bowel sounds present Neuro: No focal deficits, no facial deformity, AO x3, power 5/5 in all limbs Data 07/17/25 05:10 07/17/25 05:10 Micro: Microbiology 07/16/25 19:48 Blood Culture - Preliminary Blood SPECIMEN COLLECTED 07/16/25 19:48 Blood Culture - Preliminary Blood SPECIMEN COLLECTED A&P Assessment and plan 1. Generalized weakness: 2. Confusion: 3. Heart failure with reduced ejection fraction: 4. Paroxysmal atrial fibrillation: 5. Uncontrolled hypertension: 6. Elevated CPK: 7. Hypothyroidism: 8. 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 Leukocytosis: 10. Recurrent UTI: 11. Bradycardia: Plan: 80-year-old female with past medical history of MDS, CHF with reduced ejection fraction, A-fib, hypertension presents to the ER today with family when she was found down with complaints of generalized weakness, mild confusion found to be dehydrated with elevated CPK Leukocytosis: Patient does have history of recurrent UTIs. Leukocytosis could be in setting of hemoconcentration due to dehydration. Also has thrombocytosis and elevated hemoglobin than her baseline. Most likely in setting of hemoconcentration because leukocytosis has resolved today. Normal platelet count today. Hold off on antibiotics and monitor. Follow-up blood culture, urine culture, appreciate negative procalcitonin. Appreciate chest x-ray negative for continue with NS at 75 cc/h to finish her 1 bag Watch for fluid overload. Patient has a history of CHF with reduced ejection fraction. CHF: Echocardiogram done shows improvement in EF up to 50 to 55%, moderate hypokinesia of mid and apical septum, LVH, grade 1 diastolic dysfunction, severely increased LA volume, moderate mitral calcification. Elevated CPK: Most likely setting of dehydration and found on fluid. Fluid as above. Hypertension: Better controlled. Continue with amlodipine. Add losartan 50 mg oral daily. Goal blood pressure less than 140/90 mmHg. Uptitrate as per goal. IV hydralazine 10 mg every 4 as needed for systolic of more than 160. Bradycardia: Could be the reason for weakness. Telemetry. Continue with home dose of amiodarone given history of A-fib. Will hold off on metoprolol. Hyperbilirubinemia: Associated with mild AST elevation. No abdominal pain. Check CT on pelvis without contrast for further evaluation. Generalized weakness: CT head on admission negative for acute abnormality. Appreciate PT eval. Confusion: Resolving. Could be in setting of dehydration. Cannot rule out underlying dementia. Need to confirm more with family. CT head negative for acute abnormality. Atrial fibrillation: Amiodarone as above. Holding metoprolol. Patient not on anticoagulation at home. Continue with home baby aspirin. Hypothyroidism: Appreciate TSH. Continue with home dose of propylthiouracil. History of MDS. Discharge plan: Physical therapy evaluation recommending patient to be transition to SNF for further rehabitation. Patient is agreeable. 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
--- NOTE | 2025-07-17 12:49 | XR_ITS ---
WS: [email or web address] Right shoulder, 3 views, 07/17/2025 Clinical Data: Pain post fall Comparison: None. Findings: No fractures or dislocations are seen. The AC joint shows erosion and adjacent heterotopic calcification. The glenohumeral joint shows irregularity, sclerosis and narrowing. There is a calcification adjacent to the greater tuberosity which may represent calcific bursitis and/or tendinitis. The adjacent right scapula and ribs are normal. The soft tissues are unremarkable. XR/XR shoulder RT min 2V* [id number] Impression: 1. 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 2. Calcific bursitis and/or tendinitis.
--- NOTE | 2025-07-17 12:49 | XR_ITS ---
WS: [email or web address] Cervical spine, 4 views, 07/17/2025 Clinical Data: Pain post fall, chronic cervical pain Comparison: None. Findings: No new compression fractures are seen. There is abnormal increased flexion due to fusion of the C5-C6-C7 vertebral bodies. This fusion could be from trauma, infection, surgery or a congenital reason. There is disc obliteration at C5-C6 and C6-C7. There is no prevertebral soft tissue swelling. The odontoid is unremarkable. The soft tissues of the neck and the lung apices are normal. There is erosion and osteoarthritis of the right AC joint. XR/XR cervical spine 3V* [id number] Impression: 1. Abnormal increased flexion at C5-C7 vertebral level. 2. Obliteration of the C5-C6 and C6-C7 disc spaces. 3. Negative for recent cervical vertebral fracture.
[2025-07-17] MEDS: magnesium citrate Btl 296 mL 150 ML PO (15:03)
--- NOTE | 2025-07-17 16:56 | USCV_ITS ---
Cris New Age: 80 Gender: F : 1945 Exam Date: 07/17/2025 00:59 Ordering Phys: Bravo Hernandez MD Technologist: PENNY Exam Location: [facility] [place] Indication: chf BP: 171 / 84 HR: 58 Rhythm: Sinus bradycardia Technical Quality: Adequate MEASUREMENTS (Male / Female) Normal Values 2D ECHO LV Diastolic Diameter PLAX 4.5 cm 4.2 - 5.9 / 3.9 - 5.3 cm IVS Diastolic Thickness 1.5 cm 0.6 - 1.0 / 0.6 - 0.9 cm IVS Systolic Thickness 1.8 cm LVPW Diastolic Thickness 1.4 cm 0.6 - 1.0 / 0.6 - 0.9 cm LVPW Systolic Thickness 2.0 cm LVOT Diameter 1.8 cm LV Ejection Fraction 2D Teich 65.0 % LV Ejection Fraction MOD 4C 66.8 % LV Ejection Fraction MOD 2C 58.5 % LV Ejection Fraction 2C AL 57.9 % LA Diameter 4.1 cm Aorta at Sinotubular Diameter 2.9 cm IVC Diameter 1.2 cm M-MODE LA Ao Ratio MM 1.4 AV Cusp Separation MM 2.0 cm DOPPLER AV Peak Velocity 163.0 cm/s LVOT Peak Velocity 82.0 cm/s AV Area Cont Eq vti 1.4 cm squared AV Area Cont Eq pk 1.2 cm squared MV Peak Velocity 156.0 cm/s MV Area PHT 2.7 cm squared Mitral E to A Ratio 0.8 TV Peak E Velocity 40.0 cm/s PV Peak Velocity 121.0 cm/s FINDINGS Left Ventricle Normal left ventricular size with borderline systolic function, EF of 50-55%. (visual) . Moderate left ventricular hypertrophy. Moderate hypokinesis of the mid and apical septum and anteroseptal segments.Grade I/IV diastolic dysfunction (abnormal relaxation filling pattern), normal to mildly elevated filling pressures. Right Ventricle Normal right ventricular size and systolic function. Right Atrium The right atrium is normal in size. Left Atrium Severely increased left atrial [id number] ml/m squared. Mitral Valve Moderate mitral annular calcification. Aortic Valve Thickened aortic valve. Aortic valve sclerosis. Tricuspid Valve No gross abnormalities noted Pulmonic Valve Structurally normal pulmonic valve without significant stenosis. There is no pulmonic regurgitation. Pericardium Normal pericardium without effusion. Aorta Plaque seen in the ascending aorta. IVC Normal IVC dimension with <50% respiratory change of the inferior vena cava. CONCLUSIONS Normal left ventricular size with a borderline systolic function, EF of 50- 55%. (visual) . Moderate left ventricular hypertrophy. Moderate hypokinesis of the mid and apical septum and anteroseptal segments.Grade I/IV diastolic dysfunction (abnormal relaxation filling pattern), normal to mildly elevated filling pressures. Severely increased left atrial ml/m squared. Moderate mitral annular calcification. Thickened aortic valve. Aortic valve sclerosis. Structurally normal pulmonic valve without significant stenosis. There is no pulmonic regurgitation. Estimated right atrial pressure around 8 mmHg. There is no pericardial effusion. There are no intracardiac masses. Compared to the study from 10/12/2021, there is slight improvement in the LV ejection fraction Dr Clover Mcguire MD [facility] (Electronically Signed) Final Date: 17 July 2025 09:52 S
[2025-07-17] MEDS: pantoprazole 40 mg SDV IVP (17:43)
[2025-07-18] VITALS (9 sets, daily range): BP systolic 128–163; BP diastolic 56–83; PULSE 63–83; RESP 15–19; TEMP 36.6–37; O2SAT 94–99
[2025-07-18 05:35] LABS: Hematocrit 32.2 % (36-47); Hemoglobin 10.70 g/dL (11.27-16.99); Mean Corpuscular HGB Conc 33.2 g/dL (30-55); Mean Corpuscular Hemoglobin 33.1 pg (27-33); Mean Corpuscular Volume 99.7 fl (85-98); Nucleated Red Blood Cells % 0 %; Platelet Count 388 10^3/cmm (157-399); Red Blood Count 3.23 10^6/uL (3.85-5.65); White Blood Count 8.14 10^3/uL (3.29-11.43)
[2025-07-18 05:52] LABS: Alanine Aminotransferase 28 U/L (0-33); Albumin Level 3.7 g/dL (3.5-5.2); Alkaline Phosphatase 82 U/L (35-105); Anion Gap 11.7 (5-19); Aspartate Amino Transferase 30 U/L (0-32); Blood Urea Nitrogen 14 mg/dL (8-23); Calcium 8.7 mg/dL (8.5-10.5); Carbon Dioxide 27 mmol/L (22-29); Chloride 96 mmol/L (98-107); Creatinine Clr Calc Pharmacy 52.3873; Globulin 2.0 g/dL (1.3-4.6); Glucose 103 mg/dL (65-115); Magnesium 2.4 mg/dL (1.7-2.3); Osmolality Calculated 273 mOsm/kg (285-295); Potassium 3.7 mmol/L (3.5-5.1); Sodium 131 mmol/L (136-145); Total Protein 5.7 g/dL (6.6-8.7)
[2025-07-18] MEDS: heparin 5,000 unit/mL INJ 1 mL 5000 UNIT SUBCUT ×2 (06:00→17:42)
[2025-07-18] MEDS: potassium phosphate (mEq K) 40 MEQ in sodium chloride 0.9% (100 ml) 100 ML 27.25 MEQ IV (10:28)
[2025-07-18] MEDS: pantoprazole 40 mg SDV IVP (17:42)
[2025-07-19] VITALS (8 sets, daily range): BP systolic 155–170; BP diastolic 55–78; PULSE 66–85; RESP 15–18; TEMP 36.6–36.9; O2SAT 94–98
[2025-07-19 04:13] LABS: Hematocrit 33.6 % (36-47); Hemoglobin 11.50 g/dL (11.27-16.99); Mean Corpuscular HGB Conc 34.2 g/dL (30-55); Mean Corpuscular Hemoglobin 34.5 pg (27-33); Mean Corpuscular Volume 100.9 fl (85-98); Nucleated Red Blood Cells % 0.2 %; Platelet Count 449 10^3/cmm (157-399); Red Blood Count 3.33 10^6/uL (3.85-5.65); White Blood Count 9.77 10^3/uL (3.29-11.43)
[2025-07-19 04:44] LABS: Alanine Aminotransferase 27 U/L (0-33); Albumin Level 3.8 g/dL (3.5-5.2); Alkaline Phosphatase 85 U/L (35-105); Anion Gap 12.1 (5-19); Aspartate Amino Transferase 23 U/L (0-32); Blood Urea Nitrogen 9 mg/dL (8-23); Calcium 8.9 mg/dL (8.5-10.5); Carbon Dioxide 27 mmol/L (22-29); Chloride 99 mmol/L (98-107); Creatinine Clr Calc Pharmacy 52.3873; Globulin 2.2 g/dL (1.3-4.6); Glucose 101 mg/dL (65-115); Magnesium 2.5 mg/dL (1.7-2.3); Osmolality Calculated 277 mOsm/kg (285-295); Potassium 4.1 mmol/L (3.5-5.1); Sodium 134 mmol/L (136-145); Total Protein 6.0 g/dL (6.6-8.7)
[2025-07-19] MEDS: heparin 5,000 unit/mL INJ 1 mL 5000 UNIT SUBCUT ×2 (05:33→18:14)
--- NOTE | 2025-07-19 11:01 | P.DS_ITS ---
Discharge Providers Date of Admission: 07/16/25 17:00 Date of Discharge: July 19, 2025 Attending Provider at Admission: Bravo Hernandez MD Attending Provider at Discharge: Bravo Hernandez MD Primary Care Provider: Jean Gibbons Diagnoses at Discharge Discharge Diagnosis 1. Generalized weakness: 2. Confusion: 3. Heart failure with reduced ejection fraction: 4. Paroxysmal atrial fibrillation: 5. Uncontrolled hypertension: 6. Elevated CPK: 7. Hypothyroidism: 8. 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 Leukocytosis: 10. Recurrent UTI: 11. Bradycardia: Reason for Visit Reason for Visit: weakness - ams Brief History: History taken through chart review and correlation with ER physician Cris Anaya Shaq is a 80 year old female with past medical history of atrial fibrillation, systolic congestive heart failure, hypothyroidism, COPD, hyp ertension, recurrent UTI presents to the ER today was brought into the ER today by her family when she was found at home today by her granddaughter on the floor. Last known normal is yesterday. Patient examination seems confused. She is alert oriented only to self, date of , address. States she is not sure why she is in the hospital but she thinks because she busted her finger. Denies any pain, nausea, vomiting, diarrhea. She thinks she lives with her brother. As per the ER documentation patient had stated that she has been getting weak recently and fell onto the ground and was not able to get up. Hospital Course Hospital Course She was admitted to the hospital for further evaluation and management of altered mental status, generalized confusion, weakness. On admission there was mild leukocytosis for which she was started on IV antibiotics with concerns for UTI. Leukocytosis resolved rapidly. She has remained afebrile. She has been off antibiotics after second day of hospitalization. She was started on treatment with IV hydration and replacement of her electrolytes to which she responded well. Patient has been at her baseline mentation for last 48 hours. Physical therapy evaluation was done and she was advised to transition to SNF for further rehabitation. Patient is agreeable. During hospitalization she was found to have bradycardia with heart rate going down to mid to low 50s for which her home dose of metoprolol has been withheld while amiodarone has been continued. She has been discharged in hemodynamically stable condition to SNF for further rehabitation on adjusted antihypertensive. Physical Exam Narrative: General: No acute distress, AO x 3, HEENT: PERRLA, pupils bilaterally equal and reactive Chest: Normal vesicular breath sounds, no added sounds, equal good air entry bilaterally CVS: S1-S2 regular, no murmurs, no tachycardia, no gallops, no rubs Abdomen: Soft, nontender, no organomegaly, bowel sounds present Neuro: No focal deficits, no facial deformity, AO x3, power 5/5 in all limbs Discharge Data Studies Completed and Pending Completed Studies During Hospitalization Category Date Time Status CT abdomen pelvis wo con [id number] Routine Cat Scan 07/17/25 12:[address] head wo con* [id number] Stat Cat Scan 07/16/25 13:06 Completed XR cervical spine 3V* [id number] Routine Exams 07/17/25 12:49 Completed XR chest 1V portable [id number] Stat Exams 07/16/25 13:06 Completed XR shoulder RT min 2V* [id number] Routine Exams 07/17/25 12:49 Completed CV. echo complete* [id number] Routine Ultrasound 07/17/25 16:56 Completed Pending at discharge Category Date Time Status Blood Culture Stat Lab 07/16/25 19:48 Results Radiology Impressions Chest X-Ray 07/16/25 13:06 Impression: Atherosclerosis. Head CT 07/16/25 13:06 IMPRESSION: 1. No acute intracranial hemorrhage or edema. 2. Moderate cerebral atrophy and mild small vessel disease. Similar to the prior study. Abdomen/Pelvis CT 07/17/25 12:46 IMPRESSION: 1. No free air or GI tract obstruction. 2. There is marked distention of the stomach with what appears to be food products and/or medicinal tablets. 3. Diffuse constipation. 4. Infrarenal abdominal aortic aneurysm at 2.8 cm. 5. Mild soft tissue anasarca. 6. Prior cholecystectomy. Cervical Spine X-Ray 07/17/25 12:49 Impression: 1. Abnormal increased flexion at C5-C7 vertebral level. 2. Obliteration of the C5-C6 and C6-C7 disc spaces. 3. Negative for recent cervical vertebral fracture. Shoulder X-Ray 07/17/25 12:49 Impression: 1. 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 2. Calcific bursitis and/or tendinitis. Microbiology 07/16/25 15:09 Urine,Clean Catch Urine Culture - Final 07/16/25 19:48 Blood Blood Culture - Preliminary NEGATIVE TO DATE 07/16/25 19:48 Blood Blood Culture - Preliminary NEGATIVE TO DATE Laboratory Results WBC 9.77 10^3/uL (3.29-11.43) 07/19/25 03:38 RBC 3.33 10^6/uL (3.85-5.65) L 07/19/25 03:38 Hgb 11.50 g/dL (11.27-16.99) 07/19/25 03:38 Hct 33.6 % (36-47) L 07/19/25 03:38 MCV 100.9 fl (85-98) H 07/19/25 03:38 MCH 34.5 pg (27-33) H 07/19/25 03:38 MCHC 34.2 g/dL (30-55) 07/19/25 03:38 RDW 19.9 % (12.1-15.1) H 07/19/25 03:38 Plt Count 449 10^3/cmm (157-399) H 07/19/25 03:38 MPV 10.3 fL (7.4-10.4) 07/19/25 03:38 Neut % (Auto) 46.1 % 07/19/25 03:38 Lymph % (Auto) 33.0 % 07/19/25 03:38 [place] % (Auto) 13.6 % 07/19/25 03:38 Eos % (Auto) 6.2 % 07/19/25 03:38 Baso % (Auto) 0.6 % 07/19/25 03:38 Neut # (Auto) 4.50 10^3/uL (1.8-7.7) 07/19/25 03:38 Lymph # (Auto) 3.2 10^3/uL (0.8-4.8) 07/19/25 03:38 [place] # (Auto) 1.3 10^3/uL (0.2-0.9) H 07/19/25 03:38 Eos # (Auto) 0.6 10^3/uL (0.0-0.8) 07/19/25 03:38 Baso # (Auto) 0.1 10^3/uL (0.0-0.1) 07/19/25 03:38 Nucleated RBC % (auto) 0.2 % 07/19/25 03:38 Nucleated RBCs # 0.0 /100WBC 07/19/25 03:38 Sodium 134 mmol/L (136-145) L 07/19/25 03:38 Potassium 4.1 mmol/L (3.5-5.1) 07/19/25 03:38 Chloride 99 mmol/L (98-107) 07/19/25 03:38 Carbon Dioxide 27 mmol/L (22-29) 07/19/25 03:38 Anion Gap 12.1 (5-19) 07/19/25 03:38 BUN 9 mg/dL (8-23) 07/19/25 03:38 Creatinine 0.7 mg/dL (0.5-0.9) 07/19/25 03:38 GFR Calculation Not Reportable 07/19/25 03:38 Glucose 101 mg/dL (65-115) 07/19/25 03:38 Calculated Osmolality 277 mOsm/kg (285-295) L 07/19/25 03:38 Lactic Acid 1.9 mmol/L (0.5-2.2) 07/16/25 14:22 Calcium 8.9 mg/dL (8.5-10.5) 07/19/25 03:38 Phosphorus 2.4 mg/dL (2.5-4.5) L 07/19/25 03:38 Magnesium 2.5 mg/dL (1.7-2.3) H 07/19/25 03:38 Total Bilirubin 0.9 mg/dL (0.15-1.2) 07/19/25 03:38 AST 23 U/L (0-32) 07/19/25 03:38 ALT 27 U/L (0-33) 07/19/25 03:38 Alkaline Phosphatase 85 U/L (35-105) 07/19/25 03:38 Creatine Kinase 340 U/L (26-192) H* 07/16/25 14:22 Troponin T Baseline 40 ng/L (0-10) H 07/16/25 14:22 Troponin T 120 Minute 35.28 ng/L (0-10) H 07/16/25 16:10 Delta Troponin T -4.72 ABS# (0-10) L 07/16/25 16:10 Total Protein 6.0 g/dL (6.6-8.7) L 07/19/25 03:38 Albumin 3.8 g/dL (3.5-5.2) 07/19/25 03:38 Globulin 2.2 g/dL (1.3-4.6) 07/19/25 03:38 Lipase 19 U/L (13-60) 07/16/25 14:22 Procalcitonin 0.07 ng/mL (0-0.5) 07/17/25 05:10 TSH 1.22 uIU/mL (0.27-4.20) 07/16/25 14:22 Urine Color [place] (Yellow) A 07/16/25 15:09 Urine Appearance Clear (CLEAR) 07/16/25 15:09 Urine pH 5.0 (5-7) 07/16/25 15:09 Ur Specific Rudd 1.022 (1.005-1.030) 07/16/25 15:09 Urine Protein 1+ (Negative) A 07/16/25 15:09 Urine Glucose (UA) Negative (Normal) 07/16/25 15:09 Urine Ketones Trace (Negative) 07/16/25 15:09 Urine Blood Negative (Negative) 07/16/25 15:09 Urine Nitrate Negative (Negative) 07/16/25 15:09 Urine Bilirubin 1+ (Negative) H 07/16/25 15:09 Urine Urobilinogen 1.0 mg/dL (Negative) 07/16/25 15:09 Ur Leukocyte Esterase Trace (Negative) A 07/16/25 15:09 Urine RBC 0-2 /hpf (0-2) 07/16/25 15:09 Urine WBC 0-5 /hpf (0-5) 07/16/25 15:09 Ur Squamous Epith Cells 0-5 /hpf (0-5) 07/16/25 15:09 Amorphous Sediment Not Reportable 07/16/25 15:09 Urine Bacteria None seen /hpf (NONE) 07/16/25 15:09 Hyaline Casts 4.52 /lpf 07/16/25 15:09 Urine Yeast 1+ /hpf H 07/16/25 15:09 Nasal MRSA (PCR) Not detected (Not Detecte) 07/16/25 19:16 Vitals Last Vital Signs Temp 98.2 F 07/19/25 07:36 Pulse 70 07/19/25 07:36 Resp 16 07/19/25 07:36 BP 165/78 07/19/25 07:36 Pulse Ox 96 07/19/25 07:36 O2 Del Method Room Air 07/19/25 07:36 O2 Flow Rate 1 07/17/25 08:50 Discharge Plan Discharge Patient Disposition: Xfer SNF Condition: Stable Prescriptions: New amlodipine 10 mg Tablet 10 mg PO DAILY Qty: 30 0RF Continued multivitamin Tablet 1 tab PO DAILY propylthiouracil 50 mg tablet 50 mg PO TID tramadol 50 mg tablet 50 mg PO Q8H PRN (Reason: Pain) hydroxyzine HCl 25 mg tablet 25 mg PO TID PRN (Reason: Anxiety) fluticasone propionate [Flonase Allergy Relief] 50 mcg/actuation spray,suspension 2 spray INTRANASAL DAILY Rx Instructions: administer into each nostril bupropion HCl 150 mg tablet extended release 24 hr 150 mg PO BID (DME) custom inserts See Rx Instructions .Route .MEDSUPPLY Qty: 1 0RF Rx Instructions: As directed aspirin 81 mg tablet 81 mg PO DAILY potassium chloride [Klor-Con 8] 8 mEq tablet extended release 8 meq PO DAILY Qty: 90 3RF amiodarone 200 mg tablet See Rx Instructions .ROUTE .COMPLEX Qty: 180 3RF Dose Instruction: Take 1 tablet by mouth once daily Rx Instructions: Take 1 tablet by mouth once daily losartan 100 mg tablet 100 mg PO DAILY 30 Days Qty: 30 0RF vitamin B complex Tablet 1 tab PO DAILY ondansetron 4 mg tablet,disintegrating 4 mg PO Q8H PRN (Reason: Nausea And Vomiting) Urinary Cranberry Blend 200-50-20 mg Capsule 1 cap PO DAILY Changed furosemide [Lasix] 20 mg tablet 20 mg PO DAILY PRN (Reason: sob) Qty: 90 0RF Discontinued metoprolol tartrate 50 mg tablet 50 mg PO BID Qty: 180 3RF doxycycline hyclate 100 mg tablet 100 mg PO BID Discharge Order = DC NOW: Discharge Order (Routine); Ordered 07/19/25 Ordered By: Bravo Hernandez Referrals: [facility] [Outside] Jean Gibbons [Primary Care Provider, Family Practice] - 07/22/25 10:20 am Discharge Diet: Cardiac Discharge Activity: Resume usual activity and Increase activity as tolerated Patient Instructions: Amlodipine (By mouth), Myelodysplastic Syndromes (DC), Opioid Safety, Patient Portal & Leobardo Instructions Activity Restrictions/Additional Instructions: Check your blood pressure daily at home monitor blood pressure diary. Goal blood pressure less than 140/90 Marcelle. Should have a repeat check of magnesium and BMP in 1 week. Discharge Attestations Time Spent in Discharge Care*: greater than 30 min Specific Discharge Activities: educating patient, discussing with pcp/other providers, discussing with case management assistant/social workers/dc planners, document ing/other paperwork and evaluating patient/reviewing data Status at Discharge: Cognitive status at discharge: mildly impaired cognition , Behavioral status at discharge: cooperative , Functional status at discharge: uses cane/walker , Overall status at discharge: patient is progressing back to baseline Quality Metrics Clinical Quality Measures [ No reported AMI, CVA or VTE this stay] Coding Level of Care Code 40997 Total time (in minutes) for Discharge: 65 Diagnoses Generalized weakness R53.1 Confusion R41.0 Heart failure with reduced ejection fraction I50.20 Paroxysmal atrial fibrillation I48.0 Atrial fibrillation type: paroxysmal Uncontrolled hypertension I10 Elevated CPK R74.8 Hypothyroidism E03.9 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
--- NOTE | 2025-07-19 13:45 | PC.NURSE ---
Peyton called and stated that the RN that would do the admission worked last night due to short staff and would not be there to do the admission. Patient will discharge to [facility] tomorrow.
[2025-07-19] MEDS: pantoprazole 40 mg SDV IVP (18:14)
[2025-07-20 04:12] VITALS: BP 172/85; PULSE 75; RESP 16; TEMP 36.6; O2SAT 94
[2025-07-20] MEDS: heparin 5,000 unit/mL INJ 1 mL 5000 UNIT SUBCUT (06:18)
[2025-07-20 07:53] VITALS: BP 197/96; PULSE 92; RESP 17; TEMP 36.7; O2SAT 98
[2025-07-20 08:32] VITALS: BP 196/97
--- NOTE | 2025-07-20 10:48 | P.MISC_ITS ---
Miscellaneous Note Purpose of Documentation: discharge Note: Patient was stable for discharge yesterday discharge order written in discharge summary done yesterday. [facility] was unable to take patient yesterday. No changes in discharge plan
[2025-07-20 11:29] VITALS: BP 151/79; PULSE 89; RESP 17; TEMP 36.4; O2SAT 99
[2025-07-20] MEDS: fluticasone nasal spray 16gm Btl 2 SPRAY INTRANASAL (11:50)
[2025-07-20 15:00] VITALS: BP 151/79; PULSE 89; RESP 17; TEMP 36.4; O2SAT 99
== END 2025-07-20 14:18 | disposition skilled nursing facility (03) | DRG 690 ==
LOC: ER 16:19 → ER IP 17:00 → MEDSURG 17:58
PROVIDERS: Admitting Provider Student in an Organized Health Care Education/Training Program; Emergency Provider Emergency Medicine; PCP Family Medicine; Visit Provider Internal Medicine
DX: N39.0 Urinary tract infection, site not specified (principal); I50.22 Chronic systolic (congestive) heart failure; E86.0 Dehydration; I11.0 Hypertensive heart disease with heart failure; I48.0 Paroxysmal atrial fibrillation; E03.9 Hypothyroidism, unspecified; D46.9 Myelodysplastic syndrome, unspecified; R00.1 Bradycardia, unspecified; J44.9 Chronic obstructive pulmonary disease, unspecified; F41.9 Anxiety disorder, unspecified; E80.6 Other disorders of bilirubin metabolism; Z79.82 Long term (current) use of aspirin; Z87.891 Personal history of nicotine dependence; Z87.440 Personal history of urinary (tract) infections
CPT/HCPCS: 36415; 70450; 71045; 72040; 73030; 74176; 80053; 81001; 82550; 83605; 83690; 83735; 84100; 84145; 84443; 84484; 85025; 87040; 87086; 93005; 93306; 94664; 96361; 96372; 96374; 96375; 97110; 97116; 97161; 97165; 97530; 99285; J0360; J1644; J2185; J2470; J7030; J9999

== ENCOUNTER 2025-08-11 10:47 | Oncology outpatient (recurring) (ONCR) | payer MEDICARE, OTHER, SELFPAY ==
[2025-08-11 11:10] LABS: Hematocrit 33.7 % (36-47); Hemoglobin 11.10 g/dL (11.27-16.99); Mean Corpuscular HGB Conc 32.9 g/dL (30-55); Mean Corpuscular Hemoglobin 34.9 pg (27-33); Mean Corpuscular Volume 106.0 fl (85-98); Nucleated Red Blood Cells % 0.3 %; Platelet Count 414 10^3/cmm (157-399); Red Blood Count 3.18 10^6/uL (3.85-5.65); White Blood Count 9.00 10^3/uL (3.29-11.43)
[2025-08-11 11:31] LABS: Alanine Aminotransferase 13 U/L (0-33); Albumin Level 4.2 g/dL (3.5-5.2); Alkaline Phosphatase 96 U/L (35-105); Anion Gap 13.6 (5-19); Aspartate Amino Transferase 16 U/L (0-32); Blood Urea Nitrogen 13 mg/dL (8-23); Calcium 9.1 mg/dL (8.5-10.5); Carbon Dioxide 28 mmol/L (22-29); Chloride 100 mmol/L (98-107); Globulin 2.3 g/dL (1.3-4.6); Glucose 93 mg/dL (65-115); Osmolality Calculated 286 mOsm/kg (285-295); Potassium 3.6 mmol/L (3.5-5.1); Sodium 138 mmol/L (136-145); Total Protein 6.5 g/dL (6.6-8.7)
[2025-08-11] MEDS: luspatercept-aamt 75 mg 61 MG SUBCUT (13:41)
== END 2025-08-11 23:59 | disposition home or self-care (01) ==
PROVIDERS: Nurse Practitioner; PCP Family Medicine; Visit Provider Internal Medicine Medical Oncology
DX: D46.Z Other myelodysplastic syndromes (principal); Z79.899 Other long term (current) drug therapy
CPT/HCPCS: 36415; 80053; 85025; 96372; J0896

== ENCOUNTER 2025-09-01 09:33 | Oncology outpatient (recurring) (ONCR) | payer MEDICARE, OTHER, SELFPAY ==
[2025-09-01 10:11] LABS: Hematocrit 35.0 % (36-47); Hemoglobin 11.60 g/dL (11.27-16.99); Mean Corpuscular HGB Conc 33.1 g/dL (30-55); Mean Corpuscular Hemoglobin 34.9 pg (27-33); Mean Corpuscular Volume 105.4 fl (85-98); Nucleated Red Blood Cells % 0.4 %; Platelet Count 407 10^3/cmm (157-399); Red Blood Count 3.32 10^6/uL (3.85-5.65); White Blood Count 10.50 10^3/uL (3.29-11.43)
[2025-09-01 10:30] LABS: Alanine Aminotransferase 10 U/L (0-33); Albumin Level 4.1 g/dL (3.5-5.2); Alkaline Phosphatase 107 U/L (35-105); Anion Gap 13.4 (5-19); Aspartate Amino Transferase 14 U/L (0-32); Blood Urea Nitrogen 17 mg/dL (8-23); Calcium 9.4 mg/dL (8.5-10.5); Carbon Dioxide 28 mmol/L (22-29); Chloride 99 mmol/L (98-107); Globulin 2.5 g/dL (1.3-4.6); Glucose 91 mg/dL (65-115); Osmolality Calculated 283 mOsm/kg (285-295); Potassium 4.4 mmol/L (3.5-5.1); Sodium 136 mmol/L (136-145); Total Protein 6.6 g/dL (6.6-8.7)
[2025-09-01] MEDS: luspatercept-aamt 25 mg 65 MG SUBCUT (11:38)
== END 2025-09-01 23:59 | disposition home or self-care (01) ==
PROVIDERS: PCP Family Medicine; Visit Provider Internal Medicine Medical Oncology
DX: Z53.9 Procedure and treatment not carried out, unspecified reason; D46.Z Other myelodysplastic syndromes; R03.0 Elevated blood-pressure reading, without diagnosis of hypertension; Z87.891 Personal history of nicotine dependence; Z79.899 Other long term (current) drug therapy; Z15.89 Genetic susceptibility to other disease; Z15.09 Genetic susceptibility to other malignant neoplasm
CPT/HCPCS: 36415; 80053; 85025; 96372; 99214; J0896

== ENCOUNTER 2025-09-07 19:17 | Emergency (ER) | payer MEDICARE, OTHER, SELFPAY ==
--- OUTSIDE RECORDS SUMMARY | 2025-09-07 17:00 | XMS_ITS | Encounter Summary ---
Author Organization [facility] Address 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 Gender Identity Not on file Sexual Orientation Not on file documented as of this encounter Last Filed Vital Signs Vital Sign Reading Time Taken Comments Blood Pressure 130/88 09/07/2025 4:52 PM CDT Pulse 81 09/07/2025 4:52 PM CDT Temperature 37.4 C (99.3 F) 09/07/2025 4:52 PM CDT Respiratory Rate 20 09/07/2025 4:52 PM CDT Oxygen Saturation 100% 09/07/2025 4:52 PM CDT Inhaled Oxygen Concentration - - Weight 64.9 kg (143 lb) 09/07/2025 4:52 PM CDT Height 167.6 cm (5' 6 ) 09/07/2025 4:52 PM CDT Body Mass Index 23.08 09/07/2025 4:52 PM CDT documented in this encounter Progress Notes * Ellie Han NP - 09/07/2025 5:12 PM CDT [facility] 09/07/2025 Subjective: Cris New is a 80 y.o. female who comes today for evaluation of Leg Pain . History of Present Illness The patient is an 80-year-old female who presents for leg swelling. She reports experiencing intermittent swelling in her calf, which she describes as feeling like a knife hitting her shoulder blade. She does not experience any associated pain. She also mentions a past incident where a medication error led to hallucinations, resulting in her being taken to the hospital. During her hospital stay, she underwent several tests and received injections. A bone marrow test revealed the presence of cancer, which was not severe but caused her to feel fatigued constantly. Review of Systems Constitutional: Negative for chills and fever. Respiratory: Negative for shortness of breath. Cardiovascular: Positive for leg swelling. Negative for chest pain. Musculoskeletal: Negative for myalgias. All other systems reviewed and are negative. Objective: Vitals: 09/07/25 1652 Temp: 99.3 ??F (37.4 ??C) Pulse: 81 BP: 130/88 Resp: 20 SpO2: 100% Physical Exam Vitals and nursing note reviewed. HENT: Mouth/Throat: Mouth: Mucous membranes are moist. Pharynx: Oropharynx is clear. Eyes: Pupils: Pupils are equal, round, and reactive to light. Cardiovascular: Rate and Rhythm: Normal rate and regular rhythm. Pulses: Normal pulses. Heart sounds: Normal heart sounds. Pulmonary: Effort: Pulmonary effort is normal. Breath sounds: Normal breath sounds. Musculoskeletal: General: Swelling present. Cervical back: Normal range of motion and neck supple. Left lower leg: Swelling and tenderness present. Skin: Capillary Refill: Capillary refill takes less than 2 seconds. Comments: Redness, tender to touch, swollen left lower leg Neurological: Mental Status: She is alert and oriented to person, place, and time. Mental status is at baseline. Psychiatric: Mood and Affect: Mood normal. Behavior: Behavior normal. Past medical history, surgical history and social history reviewed. Past Medical History: Diagnosis Date A-fib Anxiety Arthropathy, unspecified, site unspecified Congestive heart failure Depression Dysrhythmia, cardiac HTN (hypertension) Hypothyroidism IBS (irritable bowel syndrome) Osteoarthritis Post-operative nausea and vomiting Seborrheic keratosis Temporomandibular joint disorders, unspecified Unspecified adverse effect of anesthesia Unspecified disorder of lipoid metabolism Assessment/Plan: ICD-10-CM ICD-9-CM 1. Left leg swelling M79.89 729.81 US VENOUS DOPPLER LEG LEFT D-DIMER CBC WITH DIFFERENTIAL COMPREHENSIVE METABOLIC PANEL C-REACTIVE PROTEIN Assessment & Plan 1. Leg swelling: - Intermittent swelling in the calf is reported, which is not currently painful but has been more swollen in the past. - An ultrasound will be ordered to investigate the cause of the swelling. Stat labs, including a D-dimer test, will be conducted to check for potential infection or other causes. - She will go to [facility] due to [facility] not having ultrasound available today. CLARISA Pruitt The author of this note, patient (or authorized instruments sales representative), and all other persons present consent to the audio recording of this visit for charting documentation purposes. This note was automatically generated by a Generative AI technology (ReelBig), reviewed, edited, and finalized by Ellie Han NP. documented in this encounter Plan of Treatment Upcoming Encounters Date Type Department Care Team (Late st Contact Info) Description 09/25/2025 10:20 AM COLOR PASTE MIXING SUPERVISOR Office Visit [address] [address] Jean Gibbons MD [address] [address] documented as of this encounter Goals Goal Patient Goal Type Associated Problems Recent Progress Patient-Stated? Author Heart Failure Goal Care Plan Heart Failure Problem No Wendy, [place] Heart Failure Goal Care Plan Heart Failure Problem No Wendy, [place] Heart Failure Goal Care Plan Heart Failure Problem No Grandstaff, Judy, PHONE BANKER Heart Failure Goal Care Plan Heart Failure Problem No Grandstaff, Judy, PHONE BANKER Heart Failure Goal Care Plan Heart Failure Problem No Grandstaff, Judy, PHONE BANKER Heart Failure Goal Care Plan Heart Failure Problem No Grandstaff, Judy, PHONE BANKER Heart Failure Goal Care Plan Heart Failure Problem No Grandstaff, Judy, PHONE BANKER Heart Failure Goal Care Plan Heart Failure Problem No Grandstaff, Judy, PHONE BANKER Heart Failure Goal Care Plan Heart Failure Problem No Grandstaff, Judy, PHONE BANKER Heart Failure Goal Care Plan Heart Failure Problem No Grandstaff, Judy, PHONE BANKER Heart Failure Goal Care Plan Heart Failure Problem No Grandstaff, Judy, PHONE BANKER Heart Failure Goal Care Plan Heart Failure Problem No Grandstaff, Judy, PHONE BANKER Heart Failure Goal Care Plan Heart Failure Problem No Grandstaff, Judy, PHONE BANKER Heart Failure Goal Care Plan Heart Failure Problem No Grandstaff, Judy, PHONE BANKER Heart Failure Goal Care Plan Heart Failure Problem No Grandstaff, Judy, PHONE BANKER Heart Failure Goal Care Plan Heart Failure Problem No Mele, Peyton M, PHONE BANKER Heart Failure Goal Care Plan Heart Failure Problem No Cervantes, Azalia K, PHONE BANKER Heart Failure Goal Care Plan Heart Failure Problem No Cervantes, Azalia K, PHONE BANKER Heart Failure Goal Care Plan Heart Failure Problem No Mele, Peyton M, PHONE BANKER Heart Failure Goal Care Plan Heart Failure Problem No Mele, Peyton M, PHONE BANKER Heart Failure Goal Care Plan Heart Failure Problem No Mele, Peyton M, PHONE BANKER Heart Failure Goal Care Plan Heart Failure Problem No Mele, Peyton M, PHONE BANKER Heart Failure Goal Care Plan Heart Failure Problem No Mele, Peyton M, PHONE BANKER Heart Failure Goal Care Plan Heart Failure Problem No Mele, Peyton M, PHONE BANKER Heart Failure Goal Care Plan Heart Failure Problem No Mele, Peyton M, PHONE BANKER Heart Failure Goal Care Plan Heart Failure Problem No Mele, Peyton M, PHONE BANKER Heart Failure Goal Care Plan Heart Failure Problem No Mele, Peyton M, PHONE BANKER Heart Failure Goal Care Plan Heart Failure Problem No Mele, Peyton M, PHONE BANKER Heart Failure Goal Care Plan Heart Failure Problem No Mele, Peyton M, PHONE BANKER Heart Failure Goal Care Plan Heart Failure Problem No Mele, Peyton M, PHONE BANKER Heart Failure Goal Care Plan Heart Failure Problem No Mele, Peyton M, PHONE BANKER Heart Failure Goal Care Plan Heart Failure Problem No Mele, Peyton M, PHONE BANKER Heart Failure Goal Care Plan Heart Failure Problem No Mele, Peyton M, PHONE BANKER Heart Failure Goal Care Plan Heart Failure Problem No Mele, Peyton M, PHONE BANKER Heart Failure Goal Care Plan Heart Failure [...] Heart Failure Problem No Mele, Peyton M, PHONE BANKER Heart Failure Goal Care Plan Heart Failure Problem No Mele, Peyton M, PHONE BANKER Heart Failure Goal Care Plan Heart Failure Problem No Rachel Ceja RN documented as of this encounter Visit Diagnoses Diagnosis Left leg swelling- Primary documented in this encounter Additional Health [...] documented as of this encounter Care Teams Urban Gardening Specialist Relationship Specialty Start Date End Date Jean Gibbons MD [address] [phone] PCP - General Family Practice 04/09/18 documented as of this encounter
--- NOTE | 2025-09-07 19:20 | USR_ITS ---
PROCEDURE INFORMATION: Exam: US Duplex Left Lower Extremity Veins, Limited Exam date and time: 09/07/2025 7:53 PM Age: 80 years old Clinical indication: Edema, localized; Lower extremity, left; 3+ pitting edema lle; Additional info: Left-sided calf pain and swelling concern for dvt TECHNIQUE: Imaging protocol: Real-time duplex ultrasound of the left extremity with 2-D hinojosa scale, color Doppler flow and spectral waveform analysis including responses to compression and other maneuvers (when performed) with image documentation. Limited exam focused on the left lower extremity veins. COMPARISON: CT abdomen pelvis wo con [id number] 07/17/2025 1:41 PM FINDINGS: Left deep veins: Unremarkable. The common femoral, femoral, proximal profunda femoral and popliteal veins are patent without thrombus. Normal Doppler waveforms. Normal compressibility and/or augmentation response. Superficial veins: Greater saphenous vein at the saphenofemoral junction is patent without thrombus. Soft tissues: Unremarkable. US/CV venous duplex [facility] [id number] IMPRESSION: No evidence of deep vein thrombosis.
[2025-09-07 19:22] VITALS: BP 192/84; PULSE 81; RESP 18; TEMP 36.8; O2SAT 99
--- OUTSIDE RECORDS SUMMARY | 2025-09-07 19:23 | XMS_ITS | Encounter Summary ---
Author Organization [facility] Address [address] [place] [address] Care Team Providers Care Ranch Helper Name Role Phone Jean Gibbons MD Primary Care Provider [phone] [phone] Reason for Referral * Outpatient Services (Routine) - Closed Specialty Diagnoses / Procedures Referred By Mack lewis Referred To Contact Diagnoses Breast tenderness in female Procedures MAMMO BREAST US BILAT LTD Amberly Lima FNP Phone: tel: fax: [facility] Pre-Registration Stella CALL TO MAKE APPOINTMENT ONLY [address] [place] [address] Phone: tel: fax: Referral ID Status Reason Start Date Expiration Date Visits Re quested Visits Authorized [id number] Closed 05/01/2018 06/01/2019 1 1 Encounter Details Date Type Department Care Team (Late st Contact Info) Description 05/01/2018 Ancillary Orders [facility] Family Medicine [place] 104 [facility] [address] [place] [address] Amberly Lima FNP [address] [place] [phone] Breast tenderness in female Social History Tobacco Use Types Packs/Day Years Used Date Smoking Tobacco: Former Cigarettes Q uit: 08/12/1990 Smokeless Tobacco: Never Comments:quit in the Alcohol Use Standard Drinks/Week Comments No 0 (1 standard drink = 0.6 oz pur e alcohol) Comments No Sex and Gender Information Value Date Recorded Sex Assigned at Not on file Legal Sex Female 4:08 AM CAR BUILDER Gender Identity Not on file Sexual Orientation Not on file Occupation Industry Job Start Date Job End Date Not on file Not on file Not on file Not on file documented as of this encounter Plan of Treatment Not on file documented as of this encounter Results * (ABNORMAL) MAMMO BREAST US [employer] (05/01/2018 1:03 PM CDT) Anatomical Region Laterality [...] also recommended. Patient received a result/recommendation letter. [id number] Narrative 05/03/2018 9:22 AM CDT EXAM: MAMMO DIAGNOSTIC BILATERAL W OR WO CAD, MAMMO BREAST US [employer]works INDICATION: 72-year-old female presents with tenderness and [...] 1 cm from the nipple. Amberly Lima [facility] MAMMO ORDERABLES Final Result documented in this encounter Visit Diagnoses Diagnosis Breast tenderness in female Mastodynia Breast tenderness in female Mastodynia documented in this encounter Additional Health Concerns Infection Onset Date Last Indicated Resolved Time R/O COVID-19 10/21/2020 10/21/2020 10/28/2021 9:17 PM CAR BUILDER Assessment Noted Time PHQ-9 Depression Total Score: 1 01/01/20 18 11:00 AM CAR BUILDER documented as of this encounter Care Teams Ranch Helper Relationship Specialty Start Date End Date Jean Gibbons MD [address] [address] PCP - General Family Practice 04/09/18 documented as of this encounter
--- OUTSIDE RECORDS SUMMARY | 2025-09-07 19:23 | XMS_ITS | Encounter Summary ---
Author Organization [facility] Address [address] [place] [address] Care Team Providers Care Receiving Team Member Name Role Phone Jean Gibbons MD Primary Care Provider [phone] [phone] Encounter Details Date Type Department Care Team (Latest Contact Info) Description 06/07/2007 Outpatient Historical [facility] [place] [address] [address] Deanna Parada NP NO ADDRESS ON FILE Other Malaise and Fatigue (Primary Dx); Anxiety State, Unspecified; Abdominal Pain, Epigastric; Nonspecific Abnormal Electrocardiogram (ECG) (EKG) Social History Tobacco Use Types Packs/Day Years Used Date Smoking Tobacco: Never Assessed Comments Unknown Sex and Gender Information Value Date Recorded Sex Assigned at Not on file Legal Sex Female 4:08 AM SUPERVISOR DENTAL LABORATORY Gender Identity Not on file Sexual Orientation [...] COVID-19 10/21/2020 10/21/2020 10/28/2021 9:17 PM SUPERVISOR DENTAL LABORATORY documented as of this encounter Care Teams Receiving Team Member Relationship Specialty Start Date End Date Jean Gibbons MD [address] [phone] PCP - General Family Practice 04/09/18 documented as of this encounter
--- OUTSIDE RECORDS SUMMARY | 2025-09-07 19:23 | XMS_ITS | Encounter Summary ---
Author Organization [facility] Address [address] [place] [address] Care Team Providers Care Chief Digital Media Officer Name Role Phone Jean Gibbons MD Primary Care Provider [phone] [phone] Encounter Details Date Type Department Care Team (Latest Contact Info) Description 10/19/2000 Outpatient Historical [facility] [address] [place] [address] David Bailey DPM NO ADDRESS ON FILE Hallux valgus (Primary Dx); Other acquired deformity of ankle and foot(736.79) Social History Tobacco Use Types Packs/Day Years Used Date Smoking Tobacco: Never Assessed Comments Unknown Sex and Gender Information Value Date Recorded Sex Assigned at Not on file Legal Sex Female 4:08 AM DRIVER LICENSE AGENT Gender Identity Not on file Sexual Orientation [...] R/O COVID-19 10/21/2020 10/21/2020 10/28/2021 9:17 PM DRIVER LICENSE AGENT documented as of this encounter Care Teams Chief Digital Media Officer Relationship Specialty Start Date End Date Jean Gibbons MD [address] [place] [phone] PCP - General Family Practice 04/09/18 documented as of this encounter
--- OUTSIDE RECORDS SUMMARY | 2025-09-07 19:23 | XMS_ITS | Encounter Summary ---
Author Organization [facility] Address [address] [place] [address] Care Team Providers Care Horse Racer Name Role Phone Jean Gibbons MD Primary Care Provider [phone] [phone] Encounter Details Date Type Department Care Team (Latest Contact Info) Description 07/10/2003 Outpatient Historical [facility] Medicine [address] [address] Ben Winters DO NO ADDRESS ON FILE ORAL APHTHAE (Primary Dx); ACUTE PHARYNGITIS; ACUTE BRONCHITIS; ARTERITIS NOS Social History Tobacco Use Types Packs/Day Years Used Date Smoking Tobacco: Never Assessed Comments Unknown Sex and Gender Information Value Date Recorded Sex Assigned at Not on file Legal Sex Female 4:08 AM HISTORICAL GUIDE Gender Identity Not on file Sexual Orientation Not on file documented as of this encounter Plan of Treatment Not on file documented as of this encounter Visit Diagnoses Diagnosis Oral aphthae- Primary Acute pharyngitis Acute bronchitis Arteritis, unspecified documented in this encounter Additional Health Concerns Infection Onset Date Last Indicated Resolved Time R/O COVID-19 10/21/2020 10/21/2020 10/28/2021 9:17 PM HISTORICAL GUIDE documented as of this encounter Care Teams Horse Racer Relationship Specialty Start Date End Date Jean Gibbons MD [address] [address] PCP - General Family Practice 04/09/18 documented as of this encounter
--- OUTSIDE RECORDS SUMMARY | 2025-09-07 19:23 | XMS_ITS | Encounter Summary ---
Author Organization [facility] Address [address] [place] [address] Care Team Providers Care Block Sawyer Name Role Phone Jean Gibbons MD Primary Care Provider [phone] [phone] Encounter Details Date Type Department Care Team (Late st Contact Info) Description 10/19/2003 Outpatient Historical [facility] Medicine [place] [address] [address] Neo Aceves MD [address] [phone] Social History Tobacco Use Types Packs/Day Years Used Date Smoking Tobacco: Never Assessed Comments Unknown Sex and Gender Information Value Date Recorded Sex Assigned at Not on file Legal Sex Female 4:08 AM CLOTH WEIGHER Gender Identity Not on file Sexual Orientation Not on file documented as of this encounter Plan of Treatment Not on file documented as of this encounter Visit Diagnoses Not on filedocumented in this encounter Additional Health Concerns Infection Onset Date Last Indicated Resolved Time R/O COVID-19 10/21/2020 10/21/2020 10/28/2021 9:17 PM CLOTH WEIGHER documented as of this encounter Care Teams Block Sawyer Relationship Specialty Start Date End Date Jean Gibbons MD [address] [address] PCP - General Family Practice 04/09/18 documented as of this encounter
--- OUTSIDE RECORDS SUMMARY | 2025-09-07 19:23 | XMS_ITS | Encounter Summary ---
Author Organization [facility] Address [address] [place] [address] Care Team Providers Care Discovery Manager Name Role Phone Jean Gibbons MD Primary Care Provider [phone] [phone] Encounter Details Date Type Department Care Team (Latest Contact Info) Description 07/08/1998 Outpatient Historical [facility] [place] [address] [address] Nicolas Huntley MD [address] [place] [address] Nonspecific abnormal results of other endocrine function study (Primary Dx) Social History Tobacco Use Types Packs/Day Years Used Date Smoking Tobacco: Never Assessed Comments Unknown Sex and Gender Information Value Date Recorded Sex Assigned at Not on file Legal Sex Female 4:08 AM FOUNTAIN DISPENSER Gender Identity Not on file Sexual Orientation Not on file documented as of this encounter Plan of Treatment Not on file documented as of this encounter Visit Diagnoses Diagnosis Nonspecific abnormal results of other endocrine function study- Primary documented in this encounter Additional Health Concerns Infection Onset Date Last Indicated Resolved Time R/O COVID-19 10/21/2020 10/21/2020 10/28/2021 9:17 PM FOUNTAIN DISPENSER documented as of this encounter Care Teams Discovery Manager Relationship Specialty Start Date End Date Jean Gibbons MD [address] [facility] [address] [place] [phone] PCP - General Family Practice 04/09/18 documented as of this encounter
--- OUTSIDE RECORDS SUMMARY | 2025-09-07 19:23 | XMS_ITS | Encounter Summary ---
Author Organization [facility] Address [address] [place] [address] Care Team Providers Care Deputy Coroner Name Role Phone Jean Gibbons MD Primary Care Provider [phone] [phone] Encounter Details Date Type Department Care Team (Latest Contact Info) Description 05/16/2007 Outpatient Historical [facility] Medicine [place] [address] [address] Deanna Parada NP NO ADDRESS ON FILE Acute Sinusitis, Unspecified (Primary Dx); Dysfunct Eustachian Tube; Other and Unspecified Hyperlipidemia Social History Tobacco Use Types Packs/Day Years Used Date Smoking Tobacco: Never Assessed Comments Unknown Sex and Gender Information Value Date Recorded Sex Assigned at Not on file Legal Sex Female 4:08 AM HEALTH AND FITNESS PROFESSOR Gender Identity Not on file Sexual [...] COVID-19 10/21/2020 10/21/2020 10/28/2021 9:17 PM HEALTH AND FITNESS PROFESSOR documented as of this encounter Care Teams Deputy Coroner Relationship Specialty Start Date End Date Jean Gibbons MD [address] [address] PCP - General Family Practice 04/09/18 documented as of this encounter
--- OUTSIDE RECORDS SUMMARY | 2025-09-07 19:23 | XMS_ITS | Encounter Summary ---
Author Organization [facility] Address [address] [place] [address] Care Team Providers Care Gunnery/Ordnance Officer Name Role Phone Jean Gibbons MD Primary Care Provider [phone] Encounter Details Date Type Department Care Team (Latest Contact Info) Description 06/03/1999 Outpatient Historical [facility] Endocrinology-[facility] [place] [address] [place] [address] Mine Tucker MD [address] [place] [address] Toxic uninodular goiter without mention of thyrotoxic crisis or storm (Primary Dx) Social History Tobacco Use Types Packs/Day Years Used Date Smoking Tobacco: Never Assessed Comments Unknown Sex and Gender Information Value Date Recorded Sex Assigned at Not on file Legal Sex Female 4:08 AM ADVERTISING COPY WRITER Gender Identity Not on file Sexual Orientation Not on file documented as of this encounter Plan of Treatment Not on file documented as of this encounter Visit Diagnoses Diagnosis Toxic uninodular goiter without mention of thyrotoxic crisis or storm- Primary documented in this encounter Additional Health Concerns Infection Onset Date Last Indicated Resolved Time R/O COVID-19 10/21/2020 10/21/2020 10/28/2021 9:17 PM ADVERTISING COPY WRITER documented as of this encounter Care Teams Gunnery/Ordnance Officer Relationship Specialty Start Date End Date Jean Gibbons MD [address] [place] [address] PCP - General Family Practice 04/09/18 documented as of this encounter
--- OUTSIDE RECORDS SUMMARY | 2025-09-07 19:23 | XMS_ITS | Encounter Summary ---
Author Organization [facility] Address [address] [place] [address] Care Team Providers Care Gambling Supervisor Name Role Phone Jean Gibbons MD Primary Care Provider [phone] [phone] Encounter Details Date Type Department Care Team (Latest Contact Info) Description 10/04/2002 Outpatient Historical [facility] [address] [place] [address] Non-Staff, Physician NO ADDRESS ON FILE CHEST PAIN NOS (Primary Dx) Social History Tobacco Use Types Packs/Day Years Used Date Smoking Tobacco: Never Assessed Comments Unknown Sex and Gender Information Value Date Recorded Sex Assigned at Not on file Legal Sex Female 4:08 AM TUBE CLOSING MACHINE OPERATOR Gender Identity Not on file Sexual Orientation Not on file documented as of this encounter Plan of Treatment Not on file documented as of this encounter Visit Diagnoses Diagnosis Chest pain, unspecified- Primary documented in this encounter Additional Health Concerns Infection Onset Date Last Indicated Resolved Time R/O COVID-19 10/21/2020 10/21/2020 10/28/2021 9:17 PM TUBE CLOSING MACHINE OPERATOR documented as of this encounter Care Teams Gambling Supervisor Relationship Specialty Start Date End Date Jean Gibbons MD [address] [place] [phone] PCP - General Family Practice 04/09/18 documented as of this encounter
--- OUTSIDE RECORDS SUMMARY | 2025-09-07 19:23 | XMS_ITS | Encounter Summary ---
Author Organization [facility] Address [address] [place] [address] Care Team Providers Care Extern Name Role Phone Jean Gibbons MD Primary Care Provider +1 -[phone] Encounter Details Date Type Department Care Team (Latest Contact Info) Description 04/20/2000 Outpatient Historical [facility] Podiat[facility] [place] [address] [place] [address] David Bailey, DPM NO ADDRESS ON FILE Hallux valgus (Primary Dx) Social History Tobacco Use Types Packs/Day Years Used Date Smoking Tobacco: Never Assessed Comments Unknown Sex and Gender Information Value Date Recorded Sex Assigned at Not on file Legal Sex Female 4:08 AM CRANE HELPER Gender Identity Not on file Sexual Orientation Not on file documented as of this encounter Plan of Treatment Not on file documented as of this encounter Visit Diagnoses Diagnosis Hallux valgus- Primary Hallux valgus (acquired) documented in this encounter Additional Health Concerns Infection Onset Date Last Indicated Resolved Time R/O COVID-19 10/21/2020 10/21/2020 10/28/2021 9:17 PM CRANE HELPER documented as of this encounter Care Teams Extern Relationship Specialty Start Date End Date Jean Gibbons MD [address] [place] [address] PCP - General Family Practice 04/09/18 documented as of this encounter
--- OUTSIDE RECORDS SUMMARY | 2025-09-07 19:23 | XMS_ITS | Encounter Summary ---
Author Organization [facility] Address [address] [place] [address] Care Team Providers Care Plate Molder Name Role Phone Jean Gibbons MD Primary Care Provider +1 -[phone] Encounter Details Date Type Department Care Team (Latest Contact Info) Description 03/12/2003 Outpatient Historical [facility] [place] [address] [address] Kamini Gallegos MD NO ADDRESS ON FILE [place], BLOOD IN STOOL (Primary Dx) Social History Tobacco Use Types Packs/Day Years Used Date Smoking Tobacco: Never Assessed Comments Unknown Sex and Gender Information Value Date Recorded Sex Assigned at Not on file Legal Sex Female 4:08 AM MIDDLE SCHOOL TEACHER Gender Identity Not on file Sexual Orientation Not on file documented as of this encounter Plan of Treatment Not on file documented as of this encounter Visit Diagnoses Diagnosis Blood in stool- Primary documented in this encounter Additional Health Concerns Infection Onset Date Last Indicated Resolved Time R/O COVID-19 10/21/2020 10/21/2020 10/28/2021 9:17 PM MIDDLE SCHOOL TEACHER documented as of this encounter Care Teams Plate Molder Relationship Specialty Start Date End Date Jean Gibbons MD [address] [address] PCP - General Family Practice 04/09/18 documented as of this encounter
--- OUTSIDE RECORDS SUMMARY | 2025-09-07 19:23 | XMS_ITS | Encounter Summary ---
Author Organization [facility] Address [address] [place] [address] Care Team Providers Care Research Dietitian Name Role Phone Jean Gibbons MD Primary Care Provider +1 -[phone] Encounter Details Date Type Department Care Team (Latest Contact Info) Description 02/08/2004 Outpatient Historical [facility] [place] [address] [address] Ben Winters DO NO ADDRESS ON FILE EDEMA (Primary Dx) Social History Tobacco Use Types Packs/Day Years Used Date Smoking Tobacco: Never Assessed Comments Unknown Sex and Gender Information Value Date Recorded Sex Assigned at Not on file Legal Sex Female 4:08 AM ELECTRICAL PROSPECTING OBSERVER Gender Identity Not on file Sexual Orientation Not on file documented as of this encounter Plan of Treatment Not on file documented as of this encounter Visit Diagnoses Diagnosis Edema- Primary documented in this encounter Additional Health Concerns Infection Onset Date Last Indicated Resolved Time R/O COVID-19 10/21/2020 10/21/2020 10/28/2021 9:17 PM ELECTRICAL PROSPECTING OBSERVER documented as of this encounter Care Teams Research Dietitian Relationship Specialty Start Date End Date Jean Gibbons MD [address] [address] PCP - General Family Practice 04/09/18 documented as of this encounter
--- OUTSIDE RECORDS SUMMARY | 2025-09-07 19:23 | XMS_ITS | Encounter Summary ---
Author Organization [facility] Address [address] [place]: [place] [address] Care Team Providers Care Bakery Technician Name Role Phone Jean Gibbons MD Primary Care Provider +1 [phone] Encounter Details Date Type Department Care Team (Late st Contact Info) Description 10/28/1999 Outpatient Historical Mine Tucker MD [address] [place], [place] [address] Social History Tobacco Use Types Packs/Day Years Used Date Smoking Tobacco: Never Assessed Comments Unknown Sex and Gender Information Value Date Recorded Sex Assigned at Not on file Legal Sex Female 4:08 AM MAIL PROCESSING MACHINE OPERATOR Gender Identity Not on file Sexual Orientation Not on file documented as of this encounter Plan of Treatment Not on file documented as of this encounter Visit Diagnoses Not on filedocumented in this encounter Additional Health Concerns Infection Onset Date Last Indicated Resolved Time R/O COVID-19 10/21/2020 10/21/2020 10/28/2021 9:17 PM MAIL PROCESSING MACHINE OPERATOR documented as of this encounter Care Teams Bakery Technician Relationship Specialty Start Date End Date Jean Gibbons MD [address] [place] [address] PCP - General Family Practice 04/09/18 documented as of this encounter
--- OUTSIDE RECORDS SUMMARY | 2025-09-07 19:23 | XMS_ITS | Encounter Summary ---
Author Organization [facility] Address [address] [place] [address] Care Team Providers Care Technical Translator Name Role Phone Jean Gibbons MD Primary Care Provider +1 [phone] Encounter Details Date Type Department Care Team (Late st Contact Info) Description 04/15/2008 Outpatient Historical [facility] Hema Hong MD [address] [place] [address] Social History Tobacco Use Types Packs/Day Years Used Date Smoking Tobacco: Never Assessed Comments No Sex and Gender Information Value Date Recorded Sex Assigned at Not on file Legal Sex Female 4:08 AM SALES REPRESENTATIVE GRAPHIC ART Gender Identity Not on file Sexual Orientation Not on file documented as of this encounter Plan of Treatment Not on file documented as of this encounter Visit Diagnoses Not on filedocumented in this encounter Additional Health Concerns Infection Onset Date Last Indicated Resolved Time R/O COVID-19 10/21/2020 10/21/2020 10/28/2021 9:17 PM SALES REPRESENTATIVE GRAPHIC ART documented as of this encounter Care Teams Technical Translator Relationship Specialty Start Date End Date Jean Gibbons MD [address] [place] [address] PCP - General Family Practice 04/09/18 documented as of this encounter
--- OUTSIDE RECORDS SUMMARY | 2025-09-07 19:23 | XMS_ITS | Encounter Summary ---
Author Organization [facility] Address [address] [place] [address] Care Team Providers Care Drug Safety Data Management Specialist Name Role Phone Jean Gibbons MD Primary Care Provider +1 [phone] Encounter Details Date Type Department Care Team (Late st Contact Info) Description 11/26/1998 Outpatient Historical [facility] [address] [place] [address] Alberto Glass MD [address] [place] [address] Periostitis, without mention of osteomyelitis, unspecified site (Primary Dx) Social History Tobacco Use Types Packs/Day Years Used Date Smoking Tobacco: Never Assessed Comments Unknown Sex and Gender Information Value Date Recorded Sex Assigned at Not on file Legal Sex Female 4:08 AM SUPERINTENDENT SALES Gender Identity Not on file Sexual Orientation Not on file documented as of this encounter Plan of Treatment Not on file documented as of this encounter Visit Diagnoses Diagnosis Periostitis, without mention of osteomyelitis, unspecified site- Primary documented in this encounter Additional Health Concerns Infection Onset Date Last Indicated Resolved Time R/O COVID-19 10/21/2020 10/21/2020 10/28/2021 9:17 PM SUPERINTENDENT SALES documented as of this encounter Care Teams Drug Safety Data Management Specialist Relationship Specialty Start Date End Date Jean Gibbons MD [address] [place] [address] PCP - General Family Practice 04/09/18 documented as of this encounter
--- OUTSIDE RECORDS SUMMARY | 2025-09-07 19:23 | XMS_ITS | Encounter Summary ---
Author Organization [facility] Address [address] [place] [address] Care Team Providers Care Layer Up Name Role Phone Jean Gibbons MD Primary Care Provider +1 -[phone] Encounter Details Date Type Department Care Team (Latest Contact Info) Description 10/23/2005 Outpatient Historical [facility] Medicine [place] [address] [address] Deanna Parada NP NO ADDRESS ON FILE ACUTE SINUSITIS NOS (Primary Dx); JOINT PAIN-UNSPEC Social History Tobacco Use Types Packs/Day Years Used Date Smoking Tobacco: Never Assessed Comments Unknown Sex and Gender Information Value Date Recorded Sex Assigned at Not on file Legal Sex Female 4:08 AM BOILER TESTER Gender Identity Not on file Sexual Orientation Not on file documented as of this encounter Plan of Treatment Not on file documented as of this encounter Visit Diagnoses Diagnosis Acute sinusitis, unspecified- Primary Pain in joint, site unspecified documented in this encounter Additional Health Concerns Infection Onset Date Last Indicated Resolved Time R/O COVID-19 10/21/2020 10/21/2020 10/28/2021 9:17 PM BOILER TESTER documented as of this encounter Care Teams Layer Up Relationship Specialty Start Date End Date Jean Gibbons MD [address] [address] PCP - General Family Practice 04/09/18 documented as of this encounter
--- OUTSIDE RECORDS SUMMARY | 2025-09-07 19:23 | XMS_ITS | Encounter Summary ---
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
--- OUTSIDE RECORDS SUMMARY | 2025-09-07 19:23 | XMS_ITS | Encounter Summary ---
Author Organization [facility] Address [address] [place] [address] Care Team Providers Care Human Resources Communications Manager Name Role Phone Jean Gibbons MD Primary Care Provider +1 -[phone] Encounter Details Date Type Department Care Team (Latest Contact Info) Description 10/19/2003 Outpatient Historical [facility] [place] [address] [address] Neo Aceves MD [address] [address] JOINT PAIN-UNSPEC (Primary Dx); NONINFEC GASTROENTERIT NEC Social History Tobacco Use Types Packs/Day Years Used Date Smoking Tobacco: Never Assessed Comments Unknown Sex and Gender Information Value Date Recorded Sex Assigned at Not on file Legal Sex Female 4:08 AM APPLIED STATISTICIAN Gender Identity Not on file Sexual Orientation [...] R/O COVID-19 10/21/2020 10/21/2020 10/28/2021 9:17 PM APPLIED STATISTICIAN documented as of this encounter Care Teams Human Resources Communications Manager Relationship Specialty Start Date End Date Jean Gibbons MD [address] [address] PCP - General Family Practice 04/09/18 documented as of this encounter
--- OUTSIDE RECORDS SUMMARY | 2025-09-07 19:23 | XMS_ITS | Encounter Summary ---
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) Social History Tobacco Use Types Packs/Day Years Used Date Smoking Tobacco: Never Assessed Comments Unknown Sex and Gender Information Value Date Recorded Sex Assigned at Not on file Legal Sex Female 4:08 AM GEOTECHNICIAL PROPERTIES TECHNICIAN Gender Identity Not on file Sexual Orientation Not on file documented as of this encounter Plan of Treatment Not on file documented as of this encounter Visit Diagnoses Diagnosis Toxic uninodular goiter without mention of thyrotoxic crisis or storm- Primary documented in this encounter Additional Health Concerns Infection Onset Date Last Indicated Resolved Time R/O COVID-19 10/21/2020 10/21/2020 10/28/2021 9:17 PM GEOTECHNICIAL PROPERTIES TECHNICIAN documented as of this encounter Care Teams Produce Production Team Member Relationship Specialty Start Date End Date Jean Gibbons MD [address] [place] [address] PCP - General Family Practice 04/09/18 documented as of this encounter
--- OUTSIDE RECORDS SUMMARY | 2025-09-07 19:23 | XMS_ITS | Encounter Summary ---
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
--- OUTSIDE RECORDS SUMMARY | 2025-09-07 19:23 | XMS_ITS | Encounter Summary ---
Author Organization [facility] Address [address] [place] [address] Care Team Providers Care Strainer Cleaner Name Role Phone Jean Gibbons MD Primary Care Provider +1 -[phone] Encounter Details Date Type Department Care Team (Latest Contact Info) Description 12/07/1999 Outpatient Historical [facility] Podiatry[facility] [place] [address] [place] [address] David Bailey, DPM NO ADDRESS ON FILE Hallux valgus (Primary Dx) Social History Tobacco Use Types Packs/Day Years Used Date Smoking Tobacco: Never Assessed Comments Unknown Sex and Gender Information Value Date Recorded Sex Assigned at Not on file Legal Sex Female 4:08 AM HOUSE CARPENTER Gender Identity Not on file Sexual Orientation Not on file documented as of this encounter Plan of Treatment Not on file documented as of this encounter Visit Diagnoses Diagnosis Hallux valgus- Primary Hallux valgus (acquired) documented in this encounter Additional Health Concerns Infection Onset Date Last Indicated Resolved Time R/O COVID-19 10/21/2020 10/21/2020 10/28/2021 9:17 PM HOUSE CARPENTER documented as of this encounter Care Teams Strainer Cleaner Relationship Specialty Start Date End Date Jean Gibbons MD [address] [place] [address] PCP - General Family Practice 04/09/18 documented as of this encounter
--- OUTSIDE RECORDS SUMMARY | 2025-09-07 19:23 | XMS_ITS | Encounter Summary ---
Author Organization [facility] Address [address] [place] [address] Care Team Providers Care Account Support Manager Name Role Phone Jean Gibbons MD Primary Care Provider +1 -[phone] Encounter Details Date Type Department Care Team (Latest Contact Info) Description 07/29/1999 Outpatient Historical [facility] Podiatry[facility] [place] [address] [place] [address] David Bailey, DPM NO ADDRESS ON FILE Hallux valgus (Primary Dx) Social History Tobacco Use Types Packs/Day Years Used Date Smoking Tobacco: Never Assessed Comments Unknown Sex and Gender Information Value Date Recorded Sex Assigned at Not on file Legal Sex Female 4:08 AM SLAB DEPILER OPERATOR Gender Identity Not on file Sexual Orientation Not on file documented as of this encounter Plan of Treatment Not on file documented as of this encounter Visit Diagnoses Diagnosis Hallux valgus- Primary Hallux valgus (acquired) documented in this encounter Additional Health Concerns Infection Onset Date Last Indicated Resolved Time R/O COVID-19 10/21/2020 10/21/2020 10/28/2021 9:17 PM SLAB DEPILER OPERATOR documented as of this encounter Care Teams Account Support Manager Relationship Specialty Start Date End Date Jean Gibbons MD [address] [place] [address] PCP - General Family Practice 04/09/18 documented as of this encounter
--- OUTSIDE RECORDS SUMMARY | 2025-09-07 19:23 | XMS_ITS | Encounter Summary ---
Author Organization [facility] Address [address] [place] [address] Care Team Providers Care Flute Grinder Name Role Phone Jean Gibbons MD Primary Care Provider +1 -[phone] Encounter Details Date Type Department Care Team (Latest Contact Info) Description 07/11/2004 Outpatient Historical [facility] [place] [address] [address] Deanna Parada NP NO ADDRESS ON FILE ACUTE BRONCHITIS (Primary Dx); ACUTE PHARYNGITIS; ASTHMA UNSPECIFIED Social History Tobacco Use Types Packs/Day Years Used Date Smoking Tobacco: Never Assessed Comments Unknown Sex and Gender Information Value Date Recorded Sex Assigned at Not on file Legal Sex Female 4:08 AM RESEARCH TEST ENGINE OPERATOR Gender Identity Not on file Sexual Orientation Not on file documented as of this encounter Plan of Treatment Not on file documented as of this encounter Visit Diagnoses Diagnosis Acute bronchitis- Primary Acute pharyngitis Unspecified asthma(493.90) Unspecified asthma documented in this encounter Additional Health Concerns Infection Onset Date Last Indicated Resolved Time R/O COVID-19 10/21/2020 10/21/2020 10/28/2021 9:17 PM RESEARCH TEST ENGINE OPERATOR documented as of this encounter Care Teams Flute Grinder Relationship Specialty Start Date End Date Jean Gibbons MD [address] [address] PCP - General Family Practice 04/09/18 documented as of this encounter
--- OUTSIDE RECORDS SUMMARY | 2025-09-07 19:23 | XMS_ITS | Encounter Summary ---
Author Organization [facility] Address [address] [place] [address] Care Team Providers Care Foreign Student Adviser Teacher Name Role Phone Jean Gibbons MD Primary Care Provider +1 -[phone] Encounter Details Date Type Department Care Team (Latest Contact Info) Description 09/13/2004 Outpatient Historical [facility] [place] [address] [address] Lesley Ortega, RN ER [address] [place] [address] ACUTE URI NOS (Primary Dx) Social History Tobacco Use Types Packs/Day Years Used Date Smoking Tobacco: Never Assessed Comments Unknown Sex and Gender Information Value Date Recorded Sex Assigned at Not on file Legal Sex Female 4:08 AM BALLISTICS TEACHER Gender Identity Not on file Sexual Orientation Not on file documented as of this encounter Plan of Treatment Not on file documented as of this encounter Visit Diagnoses Diagnosis Acute upper respiratory infections of unspecified site- Primary documented in this encounter Additional Health Concerns Infection Onset Date Last Indicated Resolved Time R/O COVID-19 10/21/2020 10/21/2020 10/28/2021 9:17 PM BALLISTICS TEACHER documented as of this encounter Care Teams Foreign Student Adviser Teacher Relationship Specialty Start Date End Date Jean Gibbons MD [address] [address] PCP - General Family Practice 04/09/18 documented as of this encounter
--- OUTSIDE RECORDS SUMMARY | 2025-09-07 19:23 | XMS_ITS | Clinical Summary ---
Author Organization [facility] Address [address] [place] [address] Care Team Providers Care Jewel Diameter Gauger Name Role Phone Jean Gibbons MD Primary Care Provider [phone] Allergies Active Allergy Reactions Criticality Noted Date Comments Alpha-Gal (Vclnamdbj-Fpfax-9,3-Gala ctose) Anxiety Low 07/20/2025 Atorvastatin Muscle Pain Low 09/05/2001 Citalopram Unknown Clarithromycin Unknown Can take Zithromax Clindamycin Hcl Unknown Doxepin Unknown Hydrocodone Hives High 07/20/2025 Hydrocodone-Acetaminophen Unknown Ibuprofen Unknown Levofloxacin Unknown Lisinopril Unknown Naproxen Sodium Swelling,Unknown Low Oxybutynin Abdominal Pain Low 09/23/2018 Penicillins Unknown Gets severe yeast infection Pseudoephedrine Hcl Unknown Red Dye Swelling Low 04/21/2010 Sulfa (Sulfonamide Antibiotics) Hives High Venlafaxine Other (See Comments) 03/24/2014 Effexor causes night sweats and nausea Medications MILK THISTLE ORAL Take by mouth. 09/24/20 1 9 Active OTHER Vit d3 . 8 Active furosemide (LASIX) 20 mg tablet Take 1 Tablet (20 mg) by mouth 2 times daily. 1 Active Cranberry 400 mg Capsule Take by mouth daily. Active Red Yeast Rice Extract 600 mg Capsule Take 600 mg by mouth daily. Active docusate sodium (Stool Softener) 100 mg capsule Take by mouth. Active CYANOCOBALAMIN, VITAMIN B-12, ORAL Take by mouth. Active amiodarone (CORDARONE) 200 mg tablet Take 200 mg by mouth daily. 1 Active mupirocin (BACTROBAN) 2 % OintmentIndication s:Cellulitis of left lower extremity APPLY TOPICALLY TO THE AFFECTED AREA TWICE DAILY 30 Gram 1 2 Active dicyclomine (BENTYL) 10 mg capsule Take 1 Capsule (10 mg) by mouth 3 times daily as needed for Other (See Comment) (diarrhea). 4 Active buPROPion HCL (WELLBUTRIN SR) 150 mg Sustained Release 12 hour tablet Take 1 Tablet (150 mg) by mouth 2 times daily. 180 Tablet 3 4 Active losartan (COZAAR) 100 mg tabletIndications: Primary hypertension Take 1 Tablet (100 mg) by mouth daily. 100 Tablet 3 4 Active propylthiouraciL (PTU) 50 mg tabletIndications: Hyperthyroidism Take 1 Tablet (50 mg) by mouth 3 times daily. 270 Tablet 3 4 Active tiZANidine (ZANAFLEX) 2 mg TabletIndications: Chronic midline low back pain with left-sided sciatica,Spinal stenosis of lumbar region without neurogenic claudication,Prima ry osteoarthritis of both shoulders,Rotator cuff syndrome of right shoulder,Osteoarth ritis of spine with radiculopathy, cervical region TAKE 1 TABLET(2 MG) BY MOUTH TWICE DAILY NEEDED FOR SPASM 60 Tablet 5 5 Active Fish Oil-[place]-3 Fatty Acids 360-1,200 mg Capsule Take 1 Capsule by mouth daily. 90 Capsule 5 Active fluticasone propionate (FLONASE) 50 mcg/spray [place], Suspension nasal inhaler Administer 2 Sprays in each nostril daily. 48 Gram 3 5 Active ondansetron (ZOFRAN ODT) 4 mg Tablet, Rapid Dissolve Take 1 Tablet (4 mg) by mouth every 8 hours as needed for Nausea/Emesis. Dissolve tablet on top of tongue, then swallow with saliva. 10 Tablet 1 5 Active traMADol (ULTRAM) 50 mg tabletIndications: Chronic midline low back pain with left-sided sciatica,Spinal stenosis of lumbar region without neurogenic claudication,Prima ry osteoarthritis of both shoulders,Rotator cuff syndrome of right shoulder,Osteoarth ritis of spine with radiculopathy, cervical region Take 2 Tablets (100 mg) by mouth every 8 hours as needed for Pain. 180 Tablet 2 5 Active apixaban (Eliquis) 2.5 mg tabletIndications: Paroxysmal atrial fibrillation (CMS/HCC) Take 1 Tablet (2.5 mg) by mouth 2 times daily. Dose decrease 60 Tablet 5 5 Active hydrOXYzine HCL (ATARAX) 25 mg tabletIndications: Anxiety, generalized,Modera te episode of recurrent major depressive disorder (CMS/HCC) TAKE 1 TABLET BY MOUTH THREE TIMES DAILY NEEDED FOR ITCHING 90 Tablet 5 Active amLODIPine (NORVASC) 10 mg tablet Take 10 mg by mouth daily. Active Active Problems Problem Noted Date Diagnosed [...] spine with radiculopathy, cerv ical region 12/26/2018 half-way prescription opiate use 07/02/2018 Spinal stenosis of [...] Encounters Date Type Department Care Team Description 09/07/2025 5:00 PM CDT Office Visit [address] [address] Ellie Han NP Left leg swelling (Primary Dx) 09/07/2025 Nurse Triage [address] [address] Jean Gibbons MD 08/25/2025 External Device Data ST[facility] ABSTRACTION Provider, Abstract 08/18/[address] [address] Jean Gibbons MD Provider Call 08/11/2025 3:40 PM CDT [facility] Visit [facility] [address] [address] Katerin Glover, JACOB Generalized muscle weakness (Primary Dx); Hospital discharge follow-up 08/11/2025 External Device Data ST[facility] ABSTRACTION Provider, Abstract 07/30/[address] [address] Jean Gibbons MD Patient Communication 07/29/[address] [address] Jean Gibbons MD APPOINTMENT 07/28/2025 External Device Data [facility] ABSTRACTION Provider, Abstract 07/21/2025 3:00 PM CDT Video Visit [address] [address] Jean Gibbons MD Paroxysmal atrial fibrillation (CMS/HCC) (Primary Dx); Chronic systolic congestive heart failure; Myelodysplastic syndrome (CMS/HCC); Primary hypertension; Bradycardia 07/21/2025 Orders Only [facility] [address] [place] [address] Provider, Abstract 07/21/[address] [address] Jean Gibbons MD appointment 07/21/[address] [phone] Provider, Abstract 07/17/2025 Orders Only [facility] [address] [place] [phone] Provider, Abstract 07/16/2025 5:55 AM CDT - 07/16/2025 11:59 PM CDT Hospital Encounter [facility] [place] [address] [place] [address] Ambulance, [facility] Discharge Disposition: [facility] 07/15/2025 Results Follow-Up [address] [address] Jean Gibbons MD COMPREHENSIVE METABOLIC PANEL, TSH, T4 FREE, CBC WITH DIFFERENTIAL 07/15/2025 External Device Data [place] ABSTRACTION Provider, Abstract 07/11/2025 12:45 AM CDT - 07/11/2025 11:59 PM CDT Hospital Encounter [facility] [place] [address] [place] [address] Ambulance, [facility] Discharge Disposition: [facility] 07/10/2025 Orders Only [address] [address] Jean Gibbons MD 07/10/[address] [address] Jean Gibbons MD Medication Review; sinus/allergies 07/10/2025 Patient Self-Triage [facility] [address] [place] [address] 07/09/[address] [address] Jean Gibbons MD Provider Call 07/02/[address] [address] Katerin Glover FNP Yeast infection; Anxiety, generalized; Moderate episode of recurrent major depressive disorder (CMS/HCC) 06/22/[address] [address] Jean Gibbons MD Provider Call 06/21/[address] [address] Katerin Glover FNP Anxiety, generalized; Moderate episode of recurrent major depressive disorder (CMS/HCC) 06/17/2025 External Device Data STL ABSTRACTION Provider, Abstract 06/16/[address] [place] [address] Jean Gibbons MD Patient Communication 06/15/2025 1:20 PM CDT Office Visit [address] [place] [address] Jean Gibbons MD Paroxysmal atrial fibrillation (CMS/HCC) (Primary Dx); Hyperthyroidism; Chronic anemia; JAVIER (acute kidney injury); Muscle weakness (generalized); History of falling; Myelodysplastic syndrome (CMS/HCC); Stage 3a chronic kidney disease (CMS/HCC) 06/15/[address] [place] [address] Jean Gibbons MD Patient Communication; Provider Call 06/09/[address] [place] [address] Provider, Abstract from Last 3 Months Immunizations [...] DOSE QUADRIVALENT 65 YR UP PF IM 08/12/2024,08/15/2023,08/31/2022,08/12,08/11/2020 INFLUENZA VACCINE QUADRIVALE NT ADJ 65 YR UP PF IM 08/15/2023 Influenza Seasonal Unspecifi ed Formulation IM 08/11/2020,08/13/2015,08/07/2014,07/31,08/15/2012,09/08/2011,08/27/2007 ,08/27/2006,08/07/2005,08/07/2000 Influenza Vaccine High Dose 65+ Yrs IM 1 ,08/11/2019,08/09/2017,08/18,08/15/2012 Influenza Vaccine Nasal 08/09/2018 Influenza Vaccine Split 3+ Yrs IM 08/16/2010,,09/11/2008 Influenza Vaccine Tri Adjuva nted 65+ PF IM 08/09/2018 Influenza, Unspecified Formulation 02/15/2015, PREVNAR (PCV13) pneumococcal 13-valent conjugate Vaccine 06/07/2015 Pneumococcal Polysaccharide Vacc 23-anthony IM SCHIP 10/16/2012 Skin Test TB 07/20/2025 Family History Medical History Relation Name Comments [...] on file Legal Sex Female 4:19 AM BENCH ASSEMBLER BATTERY Gender Identity Not on file Sexual Orientation [...] Mass Index 23.08 09/07/2025 4:52 PM CDT Plan of Treatment Upcoming Encounters Date Type Department Care Team (Late st Contact Info) Description 09/25/2025 10:20 AM BENCH ASSEMBLER BATTERY Office Visit [facility] [address] [phone] Jean Gibbons MD [address] [address] Health Maintenance Due Date Last Done Comments ZOSTER VACCINE (1 of 2) 1995 DTAP/TDAP/TD VACCINES (1 - Tdap) 01/18/2006 01/18/20 06, 11/12/1997 COLORECTAL SCREENING 09/11/2016 09/11/2011 RSV VACCINE (60+ or ) (1 - 1-dose 75+ series) 2020 INFLUENZA VACCINE (#1) 2025 4, 08/15/2023, 08/15/2023, Additional history exists COVID-19 Vaccine (3 - 2024-2 6 season) 2025 02/10/2021, 01/13/2021 Traditional Medicare ([facility]) A nnual Wellness Visit 08/13/2025 08/12/2024, 09/29/2022 OSTEOPOROSIS SCREENING 10/30/2027 10/30/2022 PNEUMOCOCCAL VACCINE 50+ YEARS Completed 0 06/07/2015, 10/16/2012, 10/16/2012 Goals Goal Patient Goal Type Associated Problems Recent Progress Patient-Stated? Author Heart Failure Goal Care Plan Heart Failure Problem No Wendy, [place] Heart Failure Goal Care Plan Heart Failure Problem No Wendy, [place] Heart Failure Goal Care Plan Heart Failure Problem No Grandstaff, Judy, TELECOMMUNICATIONS CABLE JOINTER Heart Failure Goal Care Plan Heart Failure Problem No [place]staff, Judy, TELECOMMUNICATIONS CABLE JOINTER Heart Failure Goal Care Plan Heart Failure Problem No [place]staff, Judy, TELECOMMUNICATIONS CABLE JOINTER Heart Failure Goal Care Plan Heart Failure Problem No Grandstaff, Judy, TELECOMMUNICATIONS CABLE JOINTER Heart Failure Goal Care Plan Heart Failure Problem No Grandstaff, Judy, TELECOMMUNICATIONS CABLE JOINTER Heart Failure Goal Care Plan Heart Failure Problem No Grandstaff, Judy, TELECOMMUNICATIONS CABLE JOINTER Heart Failure Goal Care Plan Heart Failure Problem No Grandstaff, Judy, TELECOMMUNICATIONS CABLE JOINTER Heart Failure Goal Care Plan Heart Failure Problem No Grandstaff, Judy, TELECOMMUNICATIONS CABLE JOINTER Heart Failure Goal Care Plan Heart Failure Problem No Grandstaff, Judy, TELECOMMUNICATIONS CABLE JOINTER Heart Failure Goal Care Plan Heart Failure Problem No Grandstaff, Judy, TELECOMMUNICATIONS CABLE JOINTER Heart Failure Goal Care Plan Heart Failure Problem No Grandstaff, Judy, TELECOMMUNICATIONS CABLE JOINTER Heart Failure Goal Care Plan Heart Failure Problem No Grandstaff, Judy, TELECOMMUNICATIONS CABLE JOINTER Heart Failure Goal Care Plan Heart Failure Problem No Grandstaff, Judy, TELECOMMUNICATIONS CABLE JOINTER Heart Failure Goal Care Plan Heart Failure Problem No Mele, Peyton M, TELECOMMUNICATIONS CABLE JOINTER Heart Failure Goal Care Plan Heart Failure Problem No Cervantes, Azalia K, TELECOMMUNICATIONS CABLE JOINTER Heart Failure Goal Care Plan Heart Failure Problem No Cervantes, Az[place] K, TELECOMMUNICATIONS CABLE JOINTER Heart Failure Goal Care Plan Heart Failure Problem No Mele, Peyton M, TELECOMMUNICATIONS CABLE JOINTER Heart Failure Goal Care Plan Heart Failure Problem No Mele, Peyton M, TELECOMMUNICATIONS CABLE JOINTER Heart Failure Goal Care Plan Heart Failure Problem No Mele, Peyton M, TELECOMMUNICATIONS CABLE JOINTER Heart Failure Goal Care Plan Heart Failure Problem No Mele, Peyton M, TELECOMMUNICATIONS CABLE JOINTER Heart Failure Goal Care Plan Heart Failure Problem No Mele, Peyton M, TELECOMMUNICATIONS CABLE JOINTER Heart Failure Goal Care Plan Heart Failure Problem No Mele, Peyton M, TELECOMMUNICATIONS CABLE JOINTER Heart Failure Goal Care Plan Heart Failure Problem No Mele, Peyton M, TELECOMMUNICATIONS CABLE JOINTER Heart Failure Goal Care Plan Heart Failure Problem No Mele, Peyton M, TELECOMMUNICATIONS CABLE JOINTER Heart Failure Goal Care Plan Heart Failure Problem No Mele, Peyton M, TELECOMMUNICATIONS CABLE JOINTER Heart Failure Goal Care Plan Heart Failure Problem No Mele, Peyton M, TELECOMMUNICATIONS CABLE JOINTER Heart Failure Goal Care Plan Heart Failure Problem No Mele, Peyton M, TELECOMMUNICATIONS CABLE JOINTER Heart Failure Goal Care Plan Heart Failure Problem No Mele, Peyton M, TELECOMMUNICATIONS CABLE JOINTER Heart Failure Goal Care Plan Heart Failure Problem No Mlee, Peyton M, TELECOMMUNICATIONS CABLE JOINTER Heart Failure Goal Care Plan Heart Failure Problem No Mele, Peyton M, TELECOMMUNICATIONS CABLE JOINTER Heart Failure Goal Care Plan Heart Failure Problem No Mele, Peyton M, TELECOMMUNICATIONS CABLE JOINTER Heart Failure Goal Care Plan Heart Failure Problem No Mele, Peyton M, TELECOMMUNICATIONS CABLE JOINTER Heart Failure Goal Care Plan Heart Failure [...] Heart Failure Problem No Mele, Peyton M, TELECOMMUNICATIONS CABLE JOINTER Heart Failure Goal Care Plan Heart Failure Problem No Peyton Shabazz, [place] Heart Failure Goal Care Plan Heart Failure Problem No Rachel Ceja RN Procedures Procedure Name Priority Date/Time Associated Diagnosis Comments COMPREHENSIVE METABOLIC PANEL Routine 07/19/2025 4:05 PM CDT COMPREHENSIVE METABOLIC PANEL Routine 07/16/2025 10:33 AM CDT CBC WITH DIFFERENTIAL Routine 06/15/2025 2:34 PM CDT Paroxysmal atrial fibrillation (CMS/HCC) Chronic anemia JAVIER (acute kidney injury) Muscle weakness (generalized) T4 FREE Routine 06/15/2025 2:34 PM CDT Hyperthyroidism TSH Routine 06/15/2025 2:34 PM CDT Hyperthyroidism COMPREHENSIVE METABOLIC PANEL Routine 06/15/2025 2:34 PM CDT Paroxysmal atrial fibrillation (CMS/HCC) Chronic anemia JAVIER (acute kidney injury) Muscle weakness (generalized) XR DEXA BONE DENSITY AXIAL 1 OR MORE SITES Routine 10/30/2022 12:00 PM BENCH ASSEMBLER BATTERY Asymptomatic menopausal state from Last 3 Months or Most Recently Relevant to Health Maintenance Results * COMPREHENSIVE METABOLIC PANEL (07/19/2025 4:05 PM CDT) Only the most recent of3 resultswithin the time period is included. Blood us Abstract Provider CHEMISTRY ORDERABLES Final Res ult * (ABNORMAL) CBC WITH DIFFERENTIAL (06/15/2025 2:34 [...] [facility] Comment: Test Performed at: [facility] [address] [phone] Liliana Cotter MD Blood 06/15/2025 2:34 PM CDT 06/16/2025 5:03 AM CDT Jean Gibbons MD HEMATOLOGY ORDERABLES Fin al Result [facility] [phone] [email or web address] [address] [phone] * TSH (06/15/2025 2:34 PM CDT) Pathologist [facility] TSH 1.82 0.40 - 4.50 mIU/L [email or web address] Comment: Test Performed at: [email or web address] [address] [place] [phone] [facility] Blood 06/15/2025 2:34 PM CDT 06/16/2025 5:03 AM CDT Jean Gibbons MD CHEMISTRY ORDERABLES Etta l Result Performing Organization Address City/[facility]/ZIP Co de Phone Number [facility] [phone] [email or web address] [address] [place] [phone] * T4 FREE (06/15/2025 2:34 PM CDT) [facility] T4 FREE 1.5 0.8 - 1.8 ng/dL [email or web address] Comment: Test Performed at: [email or web address] [address] [place] [phone] [facility] Blood 06/15/2025 2:34 PM CDT 06/16/2025 5:03 AM CDT Jean Gibbons MD CHEMISTRY ORDERABLES Etta l Result Performing Organization Address [facility]/ZIP Co de Phone Number [facility] [phone] [email or web address] [address] [place] [phone] * XR DEXA BONE DENSITY AXIAL 1 OR MORE SITES (10/30/2022 12:00 PM BENCH ASSEMBLER BATTERY) [facility] T-SCORE SPINE 1.50 -1.0 - 1.0 INTER FACE SYSTEM T-SCORE HIP (LEFT) -1.60 -1.0 - 1.0 INTERFACE SYSTEM T-SCORE WRIST (LEFT) -1.10 -1.0 - 1.0 INTERFACE SYSTEM Anatomical Region Laterality Modality Digital Radiogra phy 10/30/2022 12:3 1 PM BENCH ASSEMBLER BATTERY Impressions 10/30/2022 1:25 PM BENCH ASSEMBLER BATTERY IMPRESSION: 1. Osteopenia. 2. Fracture risk 4 [...] captured in the FRAX model. www.shef.ac.uk/FRAX/. Enter [employer] for Select DXA and the Femoral Neck BMD value. Narrative 10/30/2022 1:25 PM BENCH ASSEMBLER BATTERY EXAM: XR DEXA BONE DENSITY AXIAL 1 OR MORE SITES DATE/TIME OF EXAM: 10/30/2022 12:00 PM REASON FOR STUDY: See Diagnosis DIAGNOSIS: Asymptomatic menopausal state COMPARISON: None TECHNIQUE: The bone mineral density (BMD) was determined using a dual-energy x-ray source (WeDeliver). Fracture risk is related to the absolute bone density and is therefore expressed as compared to a young gender-matched population event sales representative of the medial peak bone density. [...] was determined using a dual-energy x-ray source (WeDeliver). Fracture risk is related to the absolute bone density and is therefore expressed as compared to a young gender-matched population event sales representative of the medial peak bone density. [...] captured in the FRAX model. www.shef.ac.uk/FRAX/. Enter [employer] for Select DXA and the Femoral Neck BMD value. Amberly Lima PATIENT INFORMATION COORDINATOR DIAGNOSTIC IMAGING ORDERABLES Fi nal Result from [...] Problem 12/04/2024 Heart Failure Problem 12/04/2024 Insurance [facility] MEDICARE PART A AND B [place] [id number] Advance Directives For more information, please contact: [phone] * Full Code (Latest Code Status on File) Date Activated Date Inactivated Comments 03/01/2025 12:49 AM 03/02/2025 7:58 PM Care Teams Jewel Diameter Gauger Relationship Specialty Start Date End Date Jean Gibbons MD [address] [facility] [address] [place] [address] PCP - General Family Practice 04/09/18
--- OUTSIDE RECORDS SUMMARY | 2025-09-07 19:23 | XMS_ITS | Encounter Summary ---
Author Organization [facility] Address [address] [place] [address] Care Team Providers Care Tiller Man Name Role Phone Jean Gibbons MD Primary Care Provider [phone] Encounter Details Date Type Department Care Team (Latest Contact Info) Description 12/29/1999 Outpatient Historical [facility] [place] [address] [place] [address] David Bailey, DPM NO ADDRESS ON FILE Hallux valgus (Primary Dx) Social History Tobacco Use Types Packs/Day Years Used Date Smoking Tobacco: Never Assessed Comments Unknown Sex and Gender Information Value Date Recorded Sex Assigned at Not on file Legal Sex Female 4:08 AM GANG WORKER Gender Identity Not on file Sexual Orientation Not on file documented as of this encounter Plan of Treatment Not on file documented as of this encounter Visit Diagnoses Diagnosis Hallux valgus- Primary Hallux valgus (acquired) documented in this encounter Additional Health Concerns Infection Onset Date Last Indicated Resolved Time R/O COVID-19 10/21/2020 10/21/2020 10/28/2021 9:17 PM GANG WORKER documented as of this encounter Care Teams Tiller Man Relationship Specialty Start Date End Date Jean Gibbons MD [address] [place] [address] PCP - General Family Practice 04/09/18 documented as of this encounter
--- OUTSIDE RECORDS SUMMARY | 2025-09-07 19:23 | XMS_ITS | Encounter Summary ---
Author Organization [facility] Address [address] [place] [address] Care Team Providers Care Forklift Material Handler Name Role Phone Jean Gibbons MD Primary Care Provider [phone] Encounter Details Date Type Department Care Team (Latest Contact Info) Description 09/20/2004 Outpatient Historical [facility] Medicine [place] [address] [address] Ben Winters DO NO ADDRESS ON FILE BACKACHE NOS (Primary Dx); ASTHMA UNSPECIFIED; HYPERTENSION NOS Social History Tobacco Use Types Packs/Day Years Used Date Smoking Tobacco: Never Assessed Comments Unknown Sex and Gender Information Value Date Recorded Sex Assigned at Not on file Legal Sex Female 4:08 AM INDUSTRIAL MECHANIC Gender Identity Not on file Sexual Orientation Not on file documented as of this encounter Plan of Treatment Not on file documented as of this encounter Visit Diagnoses Diagnosis Backache, unspecified- Primary Unspecified asthma(493.90) Unspecified asthma Unspecified essential hypertension documented in this encounter Additional Health Concerns Infection Onset Date Last Indicated Resolved Time R/O COVID-19 10/21/2020 10/21/2020 10/28/2021 9:17 PM INDUSTRIAL MECHANIC documented as of this encounter Care Teams Forklift Material Handler Relationship Specialty Start Date End Date Jean Gibbons MD [address] [address] PCP - General Family Practice 04/09/18 documented as of this encounter
--- OUTSIDE RECORDS SUMMARY | 2025-09-07 19:23 | XMS_ITS | Encounter Summary ---
Author Organization [facility] Address [address] [place] [address] Care Team Providers Care Cctv Technician Name Role Phone Jean Gibbons MD Primary Care Provider +1 [phone] Reason for Visit * Reason Comments Clinical Consult Before Scheduling Encounter Details Date Type Department Care Team (Late st Contact Info) Description 09/07/2025 Nurse Triage [facility] Family Medicine [address] [address] Jean Gibbons MD [address] [address] Social History Tobacco Use Types [...] file Legal Sex Female 4:19 AM SENIOR ARCHITECTURAL DESIGNER Gender Identity Not on file Sexual Orientation Not on file documented as of this encounter Miscellaneous Notes * Telephone Encounter - Rachel Ceja RN - 09/07/2025 3:37 PM CDT Adult patient complains of Joint Pain: Patient c/o pain in left leg Symptoms started 5 day(s) ago. Denies an injury or activity outside the norm precipitating the pain. Admits to swelling to affected joint. Denies redness or heat to affected joint. Pain is rated 0/10 Patient has not had this pain before. Home therapies tried: / Status: Patient likely cannot become . Patient states that her left leg swollen from the knee down. It is hard in the calf area. She denies CP, or SOB. She states that her low back on the left side is also hurting. She has had a headache,tiredness, and body aches. Advised patient that she needs to come in to be evaluated today. She said she would see if she can get a ride to the clinic. Advised patient of the S/S of when to seek emergency care. * Telephone Encounter - Sol Villareal - 09/07/2025 3:27 PM CDT Copied from [facility] #[id number]. Topic: Symptomatic Care >> Sep 07, 2025 3:22 PM Sol Johnson wrote: Has this patient seen any provider (current or former) at the requested clinic in the past? Yes, Select the appropriate age range and symptom Patient has symptoms and is seeking care. Caller Name: Cris Callback Number: [phone] Call Notes: left leg swollen from calf down to ankle. headache, nausea, feverish, tired, and body aches. Age Range/Symptom: Adult: 18+ & High Risk Calf pain, Redness, Swelling, concern for blood clot Is there an encounter open? No Attempted transfer to [facility] line and no answer, message routed to tingley. documented in this encounter Plan of Treatment Upcoming Encounters Date Type Department Care Team (Late st Contact Info) Description 09/25/2025 10:20 AM SENIOR ARCHITECTURAL DESIGNER Office Visit [facility] Medicine [address] [address] Jean Gibbons MD [address] [address] documented as of this encounter Goals Goal Patient Goal Type Associated Problems Recent Progress Patient-Stated? Author Heart Failure Goal Care Plan Heart Failure Problem No Glenny Nguyen Heart Failure Goal Care Plan Heart Failure Problem No Glenny Nguyen Heart Failure Goal Care Plan Heart Failure Problem No Grandstaff, Judy, COMMUNITY LIFE DIRECTOR Heart Failure Goal Care Plan Heart Failure Problem No Grandstaff, Judy, COMMUNITY LIFE DIRECTOR Heart Failure Goal Care Plan Heart Failure Problem No Grandstaff, Judy, COMMUNITY LIFE DIRECTOR Heart Failure Goal Care Plan Heart Failure Problem No Grandstaff, Judy, COMMUNITY LIFE DIRECTOR Heart Failure Goal Care Plan Heart Failure Problem No Grandstaff, Judy, COMMUNITY LIFE DIRECTOR Heart Failure Goal Care Plan Heart Failure Problem No Grandstaff, Judy, COMMUNITY LIFE DIRECTOR Heart Failure Goal Care Plan Heart Failure Problem No Grandstaff, Judy, COMMUNITY LIFE DIRECTOR Heart Failure Goal Care Plan Heart Failure Problem No Grandstaff, Judy, COMMUNITY LIFE DIRECTOR Heart Failure Goal Care Plan Heart Failure Problem No Grandstaff, Judy, COMMUNITY LIFE DIRECTOR Heart Failure Goal Care Plan Heart Failure Problem No Grandstaff, Judy, COMMUNITY LIFE DIRECTOR Heart Failure Goal Care Plan Heart Failure Problem No Grandstaff, Judy, COMMUNITY LIFE DIRECTOR Heart Failure Goal Care Plan Heart Failure Problem No Grandstaff, Judy, COMMUNITY LIFE DIRECTOR Heart Failure Goal Care Plan Heart Failure Problem No Grandstaff, Judy, COMMUNITY LIFE DIRECTOR Heart Failure Goal Care Plan Heart Failure Problem No Mele, Peyton M, COMMUNITY LIFE DIRECTOR Heart Failure Goal Care Plan Heart Failure Problem No Cervantes, Azalia K, COMMUNITY LIFE DIRECTOR Heart Failure Goal Care Plan Heart Failure Problem No Cervantes, Azalia K, COMMUNITY LIFE DIRECTOR Heart Failure Goal Care Plan Heart Failure Problem No Mele, Peyton M, COMMUNITY LIFE DIRECTOR Heart Failure Goal Care Plan Heart Failure Problem No Mele, Peyton M, COMMUNITY LIFE DIRECTOR Heart Failure Goal Care Plan Heart Failure Problem No Mele, Peyton M, COMMUNITY LIFE DIRECTOR Heart Failure Goal Care Plan Heart Failure Problem No Mele, Peyton M, COMMUNITY LIFE DIRECTOR Heart Failure Goal Care Plan Heart Failure Problem No Mele, Peyton M, COMMUNITY LIFE DIRECTOR Heart Failure Goal Care Plan Heart Failure Problem No Mele, Peyton M, COMMUNITY LIFE DIRECTOR Heart Failure Goal Care Plan Heart Failure Problem No Mele, Peyton M, COMMUNITY LIFE DIRECTOR Heart Failure Goal Care Plan Heart Failure Problem No Mele, Peyton M, COMMUNITY LIFE DIRECTOR Heart Failure Goal Care Plan Heart Failure Problem No Mele, Peyton M, COMMUNITY LIFE DIRECTOR Heart Failure Goal Care Plan Heart Failure Problem No Mele, Peyton M, COMMUNITY LIFE DIRECTOR Heart Failure Goal Care Plan Heart Failure Problem No Mele, Peyton M, COMMUNITY LIFE DIRECTOR Heart Failure Goal Care Plan Heart Failure Problem No Mele, Peyton M, COMMUNITY LIFE DIRECTOR Heart Failure Goal Care Plan Heart Failure Problem No Mele, Peyton M, COMMUNITY LIFE DIRECTOR Heart Failure Goal Care Plan Heart Failure Problem No Mele, Peyton M, COMMUNITY LIFE DIRECTOR Heart Failure Goal Care Plan Heart Failure Problem No Mele, Peyton M, COMMUNITY LIFE DIRECTOR Heart Failure Goal Care Plan Heart Failure Problem No Mele, Peyton M, COMMUNITY LIFE DIRECTOR Heart Failure Goal Care Plan Heart Failure [...] Heart Failure Problem No Mele, Peyton M, COMMUNITY LIFE DIRECTOR Heart Failure Goal Care Plan Heart Failure Problem No Mele, Peyton M, COMMUNITY LIFE DIRECTOR Heart Failure Goal Care Plan Heart Failure [...] documented as of this encounter Care Teams Cctv Technician Relationship Specialty Start Date End Date Jean Gibbons MD [address] [phone] PCP - General Family Practice 04/09/18 documented as of this encounter
--- OUTSIDE RECORDS SUMMARY | 2025-09-07 19:23 | XMS_ITS | Encounter Summary ---
Author Organization [facility] Address [address] [place] [address] Care Team Providers Care Blending Technician Name Role Phone Jean Gibbons MD Primary Care Provider [phone] [phone] Encounter Details Date Type Department Care Team (Latest Contact Info) Description 01/27/2000 Outpatient Historical [facility] Pod[facility] [place] [address] [place] [address] David Bailey, DPM NO ADDRESS ON FILE Hallux valgus (Primary Dx) Social History Tobacco Use Types Packs/Day Years Used Date Smoking Tobacco: Never Assessed Comments Unknown Sex and Gender Information Value Date Recorded Sex Assigned at Not on file Legal Sex Female 4:08 AM WINDOWS SECURITY ANALYST Gender Identity Not on file Sexual Orientation Not on file documented as of this encounter Plan of Treatment Not on file documented as of this encounter Visit Diagnoses Diagnosis Hallux valgus- Primary Hallux valgus (acquired) documented in this encounter Additional Health Concerns Infection Onset Date Last Indicated Resolved Time R/O COVID-19 10/21/2020 10/21/2020 10/28/2021 9:17 PM WINDOWS SECURITY ANALYST documented as of this encounter Care Teams Blending Technician Relationship Specialty Start Date End Date Jean Gibbons MD [address] [place] [address] PCP - General Family Practice 04/09/18 documented as of this encounter
--- OUTSIDE RECORDS SUMMARY | 2025-09-07 19:23 | XMS_ITS | Encounter Summary ---
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 storm (Primary Dx) Social History Tobacco Use Types Packs/Day Years Used Date Smoking Tobacco: Never Assessed Comments Unknown Sex and Gender Information Value Date Recorded Sex Assigned at Not on file Legal Sex Female 4:08 AM TECHNICAL PUBLICATIONS MANAGER Gender Identity Not on file Sexual [...] R/O COVID-19 10/21/2020 10/21/2020 10/28/2021 9:17 PM TECHNICAL PUBLICATIONS MANAGER documented as of this encounter Care Teams Artist And Repertoire Manager Relationship Specialty Start Date End Date Jean Gibbons MD [address] [place] [address] PCP - General Family Practice 04/09/18 documented as of this encounter
--- OUTSIDE RECORDS SUMMARY | 2025-09-07 19:23 | XMS_ITS | Encounter Summary ---
Author Organization [facility] Address [address] [place] [address] Care Team Providers Care Market Research Assistant Name Role Phone Jean Gibbons MD Primary Care Provider [phone] [phone] Encounter Details Date Type Department Care Team (Latest Contact Info) Description 08/12/2004 Outpatient Historical [facility] Medicine [place] [address] [address] Neo Aceves MD [address] [address] Vaccine for influenza (Primary Dx) Social History Tobacco Use Types Packs/Day Years Used Date Smoking Tobacco: Never Assessed Comments Unknown Sex and Gender Information Value Date Recorded Sex Assigned at Not on file Legal Sex Female 4:08 AM INFORMATICA DEVELOPER Gender Identity Not on file Sexual Orientation Not on file documented as of this encounter Plan of Treatment Not on file documented as of this encounter Visit Diagnoses Diagnosis Vaccine for influenza- Primary Need for prophylactic vaccination and inoculation against influenza documented in this encounter Additional Health Concerns Infection Onset Date Last Indicated Resolved Time R/O COVID-19 10/21/2020 10/21/2020 10/28/2021 9:17 PM INFORMATICA DEVELOPER documented as of this encounter Care Teams Market Research Assistant Relationship Specialty Start Date End Date Jean Gibbons MD [address] [phone] PCP - General Family Practice 04/09/18 documented as of this encounter
--- OUTSIDE RECORDS SUMMARY | 2025-09-07 19:23 | XMS_ITS | Encounter Summary ---
Author Organization [facility] Address [address] [place] [address] Care Team Providers Care Cigar Making Machine Supervisor Name Role Phone Jean Gibbons MD Primary Care Provider [phone] [phone] Reason for Referral * Radiology Services (Routine) - Closed Specialty Diagnoses / Procedures Referred By Contac t Referred To Contact Diagnoses Abnormal mammogram Procedures MAMMO BREAST US BILAT LTD Jean Gibbons MD [address] [address] Phone: tel: fax: Referral ID Status Reason Start Date Expiration Date Visits Re quested Visits Authorized [id number] Closed 10/14/2018 11/14/2019 1 1 IE Encounter Details Date Type Department Care Team (Late st Contact Info) Description 10/14/[address] [facility] [address] [address] Jean Gibbons MD [address] [address] Abnormal mammogram Social History Tobacco Use Types Packs/Day Years Used Date Smoking Tobacco: Former Cigarettes Q uit: 08/12/1990 Smokeless Tobacco: Never Comments:quit in the Alcohol Use Standard Drinks/Week Comments No 0 (1 standard drink = 0.6 oz pur e alcohol) Comments No Sex and Gender Information Value Date Recorded Sex Assigned at Not on file Legal Sex Female 4:08 AM BOOKIE Gender Identity Not on file Sexual Orientation Not on file Occupation Industry Job Start Date Job End Date Not on file Not on file Not on file Not on file documented as of this encounter Plan of Treatment Not on file documented as of this encounter Results * (ABNORMAL) MAMMO BREAST US Zurrba (10/14/2018 4:14 PM BOOKIE) Anatomical Region Laterality Modality Bilateral Ultrasound 10/14/2018 4:14 PM BOOKIE Impressions 10/15/2018 6:48 AM BOOKIE : Stable to smaller sonographic appearance of [...] and bilateral breast ultrasound in six months. [id number] Narrative 10/15/2018 6:48 AM BOOKIE EXAM: MAMMO DIAG BILAT 3D SHAI W OR WO CAD, MAMMO BREAST US Zurrba INDICATION: 73-year-old female presents for six month [...] R/O COVID-19 10/21/2020 10/21/2020 10/28/2021 9:17 PM BOOKIE Assessment Noted Time PHQ-9 Depression Total Score: 1 01/01/20 18 11:00 AM BOOKIE documented as of this encounter Care Teams Cigar Making Machine Supervisor Relationship Specialty Start Date End Date Jean Gibbons MD [address] [facility] [address] [place] [address] PCP - General Family Practice 04/09/18 documented as of this encounter
--- OUTSIDE RECORDS SUMMARY | 2025-09-07 19:23 | XMS_ITS | Encounter Summary ---
Author Organization [facility] Address [address] [place] [address] Care Team Providers Care Business Planning Analyst Name Role Phone Jean Gibbons MD Primary Care Provider +1 [phone] Encounter Details Date Type Department Care Team (Latest Contact Info) Description 06/10/2003 Outpatient Historical [facility] Medicine [place] [address] [address] Kamini Gallegos MD NO ADDRESS ON FILE ALLERGIC RHINITIS NOS (Primary Dx) Social History Tobacco Use Types Packs/Day Years Used Date Smoking Tobacco: Never Assessed Comments Unknown Sex and Gender Information Value Date Recorded Sex Assigned at Not on file Legal Sex Female 4:08 AM HUMAN SERVICES SUPERVISOR Gender Identity Not on file Sexual Orientation Not on file documented as of this encounter Plan of Treatment Not on file documented as of this encounter Visit Diagnoses Diagnosis Allergic rhinitis, cause unspecified- Primary documented in this encounter Additional Health Concerns Infection Onset Date Last Indicated Resolved Time R/O COVID-19 10/21/2020 10/21/2020 10/28/2021 9:17 PM HUMAN SERVICES SUPERVISOR documented as of this encounter Care Teams Business Planning Analyst Relationship Specialty Start Date End Date Jean Gibbons MD [address] [address] PCP - General Family Practice 04/09/18 documented as of this encounter
--- OUTSIDE RECORDS SUMMARY | 2025-09-07 19:23 | XMS_ITS | Encounter Summary ---
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 storm (Primary Dx) Social History Tobacco Use Types Packs/Day Years Used Date Smoking Tobacco: Never Assessed Comments Unknown Sex and Gender Information Value Date Recorded Sex Assigned at Not on file Legal Sex Female 4:08 AM TRAVEL COTA Gender Identity Not on file Sexual Orientation [...] R/O COVID-19 10/21/2020 10/21/2020 10/28/2021 9:17 PM TRAVEL COTA documented as of this encounter Care Teams Visual Basic .Net Developer Relationship Specialty Start Date End Date Jean Gibbons MD [address] [place] [address] PCP - General Family Practice 04/09/18 documented as of this encounter
--- OUTSIDE RECORDS SUMMARY | 2025-09-07 19:23 | XMS_ITS | Encounter Summary ---
Author Organization [facility] Address [address] [place] [address] Care Team Providers Care Lay Midwife Name Role Phone Jean Gibbons MD Primary Care Provider +1 [phone] Encounter Details Date Type Department Care Team (Latest Contact Info) Description 04/09/2003 Outpatient Historical [facility] Medicine [place] [address] [address] Kamini Gallegos MD NO ADDRESS ON FILE BACKACHE NOS (Primary Dx); SPASM OF MUSCLE; ACUTE PHARYNGITIS; ALLERGIC RHINITIS NOS Social History Tobacco Use Types Packs/Day Years Used Date Smoking Tobacco: Never Assessed Comments Unknown Sex and Gender Information Value Date Recorded Sex Assigned at Not on file Legal Sex Female 4:08 AM IMAGING ANALYST Gender Identity Not on file Sexual Orientation Not on file documented as of this encounter Plan of Treatment Not on file documented as of this encounter Visit Diagnoses Diagnosis Backache, unspecified- Primary Spasm of muscle Acute pharyngitis Allergic rhinitis, cause unspecified documented in this encounter Additional Health Concerns Infection Onset Date Last Indicated Resolved Time R/O COVID-19 10/21/2020 10/21/2020 10/28/2021 9:1 7 PM IMAGING ANALYST documented as of this encounter Care Teams Lay Midwife Relationship Specialty Start Date End Date Jean Gibbons MD [address] [address] PCP - General Family Practice 04/09/18 documented as of this encounter
--- OUTSIDE RECORDS SUMMARY | 2025-09-07 19:23 | XMS_ITS | Encounter Summary ---
Author Organization [facility] Address [address] [place] [address] Care Team Providers Care Engineer/Conductor Name Role Phone Jean Gibbons MD Primary Care Provider [phone] [phone] Reason for Visit * Reason Comments Provider Call Encounter Details Date Type Department Care Team (Late st Contact Info) Description 08/18/2025 Telephone [facility] Family Medicine [place] [address] [address] Jean Gibbons MD [address] [address] Provider Call Social History Tobacco [...] on file Legal Sex Female 4:19 AM LMSW Gender Identity Not on file Sexual Orientation Not on file documented as of this encounter Miscellaneous Notes * Telephone Encounter - Selam Tsai - 08/18/2025 1:55 PM CDT Copied from [facility] #[id number]. Topic: [place] Call >> Aug 18, 2025 1:54 PM Selam Garza wrote: Caller is requesting to speak with Clinical Care Team. Caller Name: Jadyn Arizmendi Callback Number: [phone] Is the caller a Physician, Nurse Practitioner or Physician Ladle Cleaner? No Call Notes: went to see patient and patient states she doesn't need nurse and PT-states she looks good and getting around good so at this time so will not admits at this time but patient will reach out if that changes Is this addressing an immediate patient care need? No documented in this encounter Plan of Treatment Upcoming Encounters Date Type Department Care Team (Late st Contact Info) Description 09/25/2025 10:20 AM LMSW Office Visit [facility] [address] [address] Jean Gibbons MD [address] [address] documented as of this encounter Goals Goal Patient Goal Type Associated Problems Recent Progress Patient-Stated? Author Heart Failure Goal Care Plan Heart Failure Problem No Wendy, Glenny Heart Failure Goal Care Plan Heart Failure Problem No Wendy, Glenny Heart Failure Goal Care Plan Heart Failure Problem No Grandstaff, Judy, SPECTROSCOPIST Heart Failure Goal Care Plan Heart Failure Problem No Grandstaff, Judy, SPECTROSCOPIST Heart Failure Goal Care Plan Heart Failure Problem No Grandstaff, Judy, SPECTROSCOPIST Heart Failure Goal Care Plan Heart Failure Problem No Grandstaff, Judy, SPECTROSCOPIST Heart Failure Goal Care Plan Heart Failure Problem No Grandstaff, Judy, SPECTROSCOPIST Heart Failure Goal Care Plan Heart Failure Problem No Grandstaff, Judy, SPECTROSCOPIST Heart Failure Goal Care Plan Heart Failure Problem No Grandstaff, Judy, SPECTROSCOPIST Heart Failure Goal Care Plan Heart Failure Problem No Grandstaff, Judy, SPECTROSCOPIST Heart Failure Goal Care Plan Heart Failure Problem No Grandstaff, Judy, SPECTROSCOPIST Heart Failure Goal Care Plan Heart Failure Problem No Grandstaff, Judy, SPECTROSCOPIST Heart Failure Goal Care Plan Heart Failure Problem No Grandstaff, Judy, SPECTROSCOPIST Heart Failure Goal Care Plan Heart Failure Problem No Grandstaff, Judy, SPECTROSCOPIST Heart Failure Goal Care Plan Heart Failure Problem No Grandstaff, Judy, SPECTROSCOPIST Heart Failure Goal Care Plan Heart Failure Problem No Mele, Peyton M, SPECTROSCOPIST Heart Failure Goal Care Plan Heart Failure Problem No Cervantes, Azalia K, SPECTROSCOPIST Heart Failure Goal Care Plan Heart Failure Problem No Cervantes, Azalia K, SPECTROSCOPIST Heart Failure Goal Care Plan Heart Failure Problem No Mele, Peyton M, SPECTROSCOPIST Heart Failure Goal Care Plan Heart Failure Problem No Mele, Peyton M, SPECTROSCOPIST Heart Failure Goal Care Plan Heart Failure Problem No Mele, Peyton M, SPECTROSCOPIST Heart Failure Goal Care Plan Heart Failure Problem No Mele, Peyton M, SPECTROSCOPIST Heart Failure Goal Care Plan Heart Failure Problem No Mele, Peyton M, SPECTROSCOPIST Heart Failure Goal Care Plan Heart Failure Problem No Mele, Peyton M, SPECTROSCOPIST Heart Failure Goal Care Plan Heart Failure Problem No Mele, Peyton M, SPECTROSCOPIST Heart Failure Goal Care Plan Heart Failure Problem No Mele, Peyton M, SPECTROSCOPIST Heart Failure Goal Care Plan Heart Failure Problem No Mele, Peyton M, SPECTROSCOPIST Heart Failure Goal Care Plan Heart Failure Problem No Mele, Peyton M, SPECTROSCOPIST Heart Failure Goal Care Plan Heart Failure Problem No Mele, Peyton M, SPECTROSCOPIST Heart Failure Goal Care Plan Heart Failure Problem No Mele, Peyton M, SPECTROSCOPIST Heart Failure Goal Care Plan Heart Failure Problem No Mele, Peyton M, SPECTROSCOPIST Heart Failure Goal Care Plan Heart Failure Problem No Mele, Peyton M, SPECTROSCOPIST Heart Failure Goal Care Plan Heart Failure Problem No Mele, Peyton M, SPECTROSCOPIST Heart Failure Goal Care Plan Heart Failure Problem No Mele, Peyton M, SPECTROSCOPIST Heart Failure Goal Care Plan Heart Failure Problem No GibbonsJean hunter MD Heart Failure Goal Care Plan Heart Failure Problem No GibbonsJean MD Heart Failure Goal Care Plan Heart [...] Heart Failure Problem No Mele, Peyton M, SPECTROSCOPIST Heart Failure Goal Care Plan Heart Failure Problem No Mele, Peyton M, SPECTROSCOPIST Heart Failure Goal Care Plan Heart Failure [...] documented as of this encounter Care Teams Engineer/Conductor Relationship Specialty Start Date End Date Jean Gibbons MD [address] [phone] PCP - General Family Practice 04/09/18 documented as of this encounter
--- OUTSIDE RECORDS SUMMARY | 2025-09-07 19:23 | XMS_ITS | Encounter Summary ---
Author Organization [facility] Address [address] [place] [address] Care Team Providers Care Data Entry Clerk Name Role Phone Jean Gibbons MD Primary Care Provider +1 -[phone] Encounter Details Date Type Department Care Team (Late st Contact Info) Description 04/09/2018 Ancillary Orders [facility] Medicine [place] 104 [facility] [address] [place] [address] Amberly Lima, JACOB [address] [place] [phone] Breast tenderness in female Social History Tobacco Use Types Packs/Day Years Used Date Smoking Tobacco: Former Cigarettes Q uit: 08/12/1990 Smokeless Tobacco: Never Comments:quit in the Alcohol Use Standard Drinks/Week Comments No 0 (1 standard drink = 0.6 oz pur e alcohol) Comments No Sex and Gender Information Value Date Recorded Sex Assigned at Not on file Legal Sex Female 4:08 AM MANAGER OF DISTRIBUTION Gender Identity Not on file Sexual Orientation [...] COVID-19 10/21/2020 10/21/2020 10/28/2021 9:17 PM MANAGER OF DISTRIBUTION Assessment Noted Time PHQ-9 Depression Total Score: 1 01/01/20 18 11:00 AM MANAGER OF DISTRIBUTION documented as of this encounter Care Teams Data Entry Clerk Relationship Specialty Start Date End Date Jean Gibbons MD [address] [address] PCP - General Family Practice 04/09/18 documented as of this encounter
--- OUTSIDE RECORDS SUMMARY | 2025-09-07 19:23 | XMS_ITS | Encounter Summary ---
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) Social History Tobacco Use Types Packs/Day Years Used Date Smoking Tobacco: Never Assessed Comments Unknown Sex and Gender Information Value Date Recorded Sex Assigned at Not on file Legal Sex Female 4:08 AM BUTT TRIMMER Gender Identity Not on file Sexual Orientation Not on file documented as of this encounter Plan of Treatment Not on file documented as of this encounter Visit Diagnoses Diagnosis Toxic uninodular goiter without mention of thyrotoxic crisis or storm- Primary documented in this encounter Additional Health Concerns Infection Onset Date Last Indicated Resolved Time R/O COVID-19 10/21/2020 10/21/2020 10/28/2021 9:17 PM BUTT TRIMMER documented as of this encounter Care Teams Senior Grants Officer Relationship Specialty Start Date End Date Jean Gibbons MD [address] [place] [address] PCP - General Family Practice 04/09/18 documented as of this encounter
--- OUTSIDE RECORDS SUMMARY | 2025-09-07 19:23 | XMS_ITS | Encounter Summary ---
Author Organization [facility] Address [address] [place] [address] Care Team Providers Care Boilers Inspector Name Role Phone Jean Gibbons MD Primary Care Provider +1 [phone] Encounter Details Date Type Department Care Team (Latest Contact Info) Description 08/07/2005 Outpatient Historical [facility] Medicine [place] [address] [address] Neo Aceves MD [address] [address] Vaccine for influenza (Primary Dx) Social History Tobacco Use Types Packs/Day Years Used Date Smoking Tobacco: Never Assessed Comments Unknown Sex and Gender Information Value Date Recorded Sex Assigned at Not on file Legal Sex Female 4:08 AM LEAD NUCLEAR MEDICINE TECHNOLOGIST Gender Identity Not on file Sexual Orientation Not on file documented as of this encounter Plan of Treatment Not on file documented as of this encounter Visit Diagnoses Diagnosis Vaccine for influenza- Primary Need for prophylactic vaccination and inoculation against influenza documented in this encounter Additional Health Concerns Infection Onset Date Last Indicated Resolved Time R/O COVID-19 10/21/2020 10/21/2020 10/28/2021 9:17 PM LEAD NUCLEAR MEDICINE TECHNOLOGIST documented as of this encounter Care Teams Boilers Inspector Relationship Specialty Start Date End Date Jean Gibbons MD [address] [phone] PCP - General Family Practice 04/09/18 documented as of this encounter
--- OUTSIDE RECORDS SUMMARY | 2025-09-07 19:23 | XMS_ITS | Encounter Summary ---
Author Organization [facility] Address [address] [place] [address] Care Team Providers Care Senior Care Provider Name Role Phone Jean Gibbons MD Primary Care Provider +1 [phone] Encounter Details Date Type Department Care Team (Latest Contact Info) Description 03/15/2005 Outpatient Historical [facility] Medicine [place] [address] [address] Ben Winters DO NO ADDRESS ON FILE BACKACHE NOS (Primary Dx); HYPERTENSION NOS; ANXIETY STATE NOS Social History Tobacco Use Types Packs/Day Years Used Date Smoking Tobacco: Never Assessed Comments Unknown Sex and Gender Information Value Date Recorded Sex Assigned at Not on file Legal Sex Female 4:08 AM DIRECTOR OF STRATEGIC ALLIANCES Gender Identity Not on file Sexual Orientation Not on file documented as of this encounter Plan of Treatment Not on file documented as of this encounter Visit Diagnoses Diagnosis Backache, unspecified- Primary Unspecified essential hypertension Anxiety state, unspecified documented in this encounter Additional Health Concerns Infection Onset Date Last Indicated Resolved Time R/O COVID-19 10/21/2020 10/21/2020 10/28/2021 9:17 PM DIRECTOR OF STRATEGIC ALLIANCES documented as of this encounter Care Teams Senior Care Provider Relationship Specialty Start Date End Date Jean Gibbons MD [address] [address] PCP - General Family Practice 04/09/18 documented as of this encounter
--- OUTSIDE RECORDS SUMMARY | 2025-09-07 19:23 | XMS_ITS | Encounter Summary ---
Author Organization [facility] Address [address] [place] [address] Care Team Providers Care Farm Appraiser Name Role Phone Jean Gibbons MD Primary Care Provider +1 [phone] Encounter Details Date Type Department Care Team (Latest Contact Info) Description 08/27/2007 Outpatient Historical [facility] Medicine [place] [address] [address] Ben Winters DO NO ADDRESS ON FILE Vaccine for Influenza (Primary Dx) Social History Tobacco Use Types Packs/Day Years Used Date Smoking Tobacco: Never Assessed Comments Unknown Sex and Gender Information Value Date Recorded Sex Assigned at Not on file Legal Sex Female 4:08 AM JUNIOR MANUFACTURING ENGINEER Gender Identity Not on file Sexual Orientation Not on file documented as of this encounter Plan of Treatment Not on file documented as of this encounter Visit Diagnoses Diagnosis Vaccine for influenza- Primary Need for prophylactic vaccination and inoculation against influenza documented in this encounter Additional Health Concerns Infection Onset Date Last Indicated Resolved Time R/O COVID-19 10/21/2020 10/21/2020 10/28/2021 9:17 PM JUNIOR MANUFACTURING ENGINEER documented as of this encounter Care Teams Farm Appraiser Relationship Specialty Start Date End Date Jean Gibbons MD [address] [address] PCP - General Family Practice 04/09/18 documented as of this encounter
--- OUTSIDE RECORDS SUMMARY | 2025-09-07 19:23 | XMS_ITS | Encounter Summary ---
Author Organization [facility] Address [address] [place] [address] Care Team Providers Care Skin Care Specialist Name Role Phone Jean Gibbons MD Primary Care Provider +1 [phone] Encounter Details Date Type Department Care Team (Late st Contact Info) Description 09/10/1998 Outpatient Historical [facility] [address] [facility], [address] [place] [address] Nicolas Oviedo MD [address] [place] [address] Carpal tunnel syndrome (Primary Dx) Social History Tobacco Use Types Packs/Day Years Used Date Smoking Tobacco: Never Assessed Comments Unknown Sex and Gender Information Value Date Recorded Sex Assigned at Not on file Legal Sex Female 4:08 AM SLAB GRINDER Gender Identity Not on file Sexual Orientation Not on file documented as of this encounter Plan of Treatment Not on file documented as of this encounter Visit Diagnoses Diagnosis Carpal tunnel syndrome- Primary documented in this encounter Additional Health Concerns Infection Onset Date Last Indicated Resolved Time R/O COVID-19 10/21/2020 10/21/2020 10/28/2021 9:17 PM SLAB GRINDER documented as of this encounter Care Teams Skin Care Specialist Relationship Specialty Start Date End Date Jean Gibbons MD [address] [place] [address] PCP - General Family Practice 04/09/18 documented as of this encounter
--- OUTSIDE RECORDS SUMMARY | 2025-09-07 19:23 | XMS_ITS | Encounter Summary ---
Author Organization [facility] Address [address] [place] [address] Care Team Providers Care Terminal Press Operator Name Role Phone Jean Gibbons MD Primary Care Provider +1 [phone] Reason for Referral * Outpatient Services (Routine) - Closed Specialty Diagnoses / Procedures Referred By Mack t Referred To Contact Radiology Diagnoses Breast tenderness in female Procedures MAMMO DIAGNOSTIC BILATERAL W OR WO CAD MAMMO DIAG BILAT 3D SHAI W OR WO CAD MAMMO DIAGNOSTIC BILATERAL W OR WO CAD Amberly Lima FNP Phone: tel: fax: [facility] [place] [address] [facility] [address] [place] [address] Phone: tel: fax: Referral ID Status Reason Start Date Expiration Date V isits Requested Visits Authorized [id number] Closed F MC TO SCHEDULE (SG) 04/04/2018 05/05/2019 1 1 Encounter Details Date Type Department Care Team (Late st Contact Info) Description 05/01/2018 Ancillary Orders [facility] Family Medicine [place] [address] [facility] 60 [place] [phone] Amberly Lima FNP [address] [place] [address] Breast tenderness in female Social History Tobacco Use Types Packs/Day Years Used Date Smoking Tobacco: Former Cigarettes Q uit: 08/12/1990 Smokeless Tobacco: Never Comments:quit in the Alcohol Use Standard Drinks/Week Comments No 0 (1 standard drink = 0.6 oz pur e alcohol) Comments No Sex and Gender Information Value Date Recorded Sex Assigned at Not on file Legal Sex Female 4:08 AM MUTUAL FUNDS AGENT Gender Identity Not on file Sexual [...] also recommended. Patient received a result/recommendation letter. [id number] Narrative 05/03/2018 9:22 AM CDT EXAM: MAMMO DIAGNOSTIC BILATERAL W OR WO CAD, MAMMO BREAST US [facility]ILAT [facility] INDICATION: 72-year-old female presents with tenderness [...] cm from the nipple. us Amberly Lima SUPERVISOR TELEPHONE INFORMATION MAMMO ORDERABLES Final Result documented in this encounter Visit Diagnoses Diagnosis Breast tenderness in female Mastodynia Breast tenderness in female Mastodynia documented in this encounter Additional Health Concerns Infection Onset Date Last Indicated Resolved Time R/O COVID-19 10/21/2020 10/21/2020 10/28/2021 9:17 PM MUTUAL FUNDS AGENT Assessment Noted Time PHQ-9 Depression Total Score: 1 01/01/20 18 11:00 AM MUTUAL FUNDS AGENT documented as of this encounter Care Teams Terminal Press Operator Relationship Specialty Start Date End Date Jean Gibbons MD [address] [address] PCP - General Family Practice 04/09/18 documented as of this encounter
--- OUTSIDE RECORDS SUMMARY | 2025-09-07 19:23 | XMS_ITS | Encounter Summary ---
Author Organization [facility] Address [address] [place] [address] Care Team Providers Care Still Operator Gin Name Role Phone Jean Gibbons MD Primary Care Provider +1 -[phone] Encounter Details Date Type Department Care Team (Late st Contact Info) Description 03/22/2005 Outpatient Historical [facility] 06 Ben Winters DO NO ADDRESS ON FILE Social History Tobacco Use Types Packs/Day Years Used Date Smoking Tobacco: Never Assessed Comments Unknown Sex and Gender Information Value Date Recorded Sex Assigned at Not on file Legal Sex Female 4:08 AM CHILDBIRTH AND INFANT CARE TEACHER Gender Identity Not on file Sexual [...] R/O COVID-19 10/21/2020 10/21/2020 10/28/2021 9:17 PM CHILDBIRTH AND INFANT CARE TEACHER documented as of this encounter Care Teams Still Operator Gin Relationship Specialty Start Date End Date Jean Gibbons MD [address] [address] PCP - General Family Practice 04/09/18 documented as of this encounter
--- OUTSIDE RECORDS SUMMARY | 2025-09-07 19:23 | XMS_ITS | Encounter Summary ---
Author Organization [facility] Address [address] [place] [address] Care Team Providers Care Outreach Educator Name Role Phone Jean Gibbons MD Primary Care Provider +1 [phone] Reason for Referral * Radiology Services (Routine) - Closed Specialty Diagnoses / Procedures Referred By Contac t Referred To Contact Radiology Diagnoses Abnormal mammogram Procedures MAMMO DIAG BILAT 3D SHAI W OR WO CAD MAMMO DIAGNOSTIC BILATERAL W OR WO CAD CHG DIAGNOSTIC MAMMOGRAPHY COMPUTER-AIDED DETCJ BI CHG DIGITAL BREAST TOMOSYNTHESIS BILATERAL Jean Gibbons MD [address] [address] Phone: tel: fax: [facility] [address] [facility] [address] [place] [address] Phone: tel: fax: Referral ID Status Reason Start Date Expiration Date V isits Requested Visits Authorized [id number] Closed F MC TO SCHEDULE (SGF) 09/20/2018 10/21/2019 1 1 OCAPTIONER Encounter Details Date Type Department Care Team (Late st Contact Info) Description 10/11/2018 Ancillary Orders [facility] [address] [facility] [address] [place] [address] Jean Gibbons MD [address] [address] Abnormal mammogram Social History Tobacco Use Types Packs/Day Years Used Date Smoking Tobacco: Former Cigarettes Q uit: 08/12/1990 Smokeless Tobacco: Never Comments:quit in the Alcohol Use Standard Drinks/Week Comments No 0 (1 standard drink = 0.6 oz pur e alcohol) Comments No Sex and Gender Information Value Date Recorded Sex Assigned at Not on file Legal Sex Female 4:08 AM STENOCAPTIONER Gender Identity Not on file Sexual Orientation Not on file Occupation Industry Job Start Date Job End Date Not on file Not on file Not on file Not on file documented as of this encounter Plan of Treatment Not on file documented as of this encounter Results * (ABNORMAL) MAMMO DIAG BILAT 3D SHAI W OR WO CAD (10/14/2018 3:38 PM STENOCAPTIONER) Anatomical Region Laterality Modality Breast Bilateral Mammography 10/14/2018 3:38 PM STENOCAPTIONER Impressions 10/15/2018 6:48 AM STENOCAPTIONER : Stable to smaller sonographic appearance of [...] and bilateral breast ultrasound in six months. [id number] Narrative 10/15/2018 6:48 AM STENOCAPTIONER EXAM: MAMMO DIAG BILAT 3D SHAI W [...] R/O COVID-19 10/21/2020 10/21/2020 10/28/2021 9:17 PM STENOCAPTIONER Assessment Noted Time PHQ-9 Depression Total Score: 1 01/01/20 18 11:00 AM STENOCAPTIONER documented as of this encounter Care Teams Outreach Educator Relationship Specialty Start Date End Date Jean Gibbons MD [address] [address] PCP - General Family Practice 04/09/18 documented as of this encounter
--- OUTSIDE RECORDS SUMMARY | 2025-09-07 19:23 | XMS_ITS | Encounter Summary ---
Author Organization [facility] Address [address] [place] [address] Care Team Providers Care Residential Field Manager Name Role Phone Jean Gibbons MD Primary Care Provider [phone] [phone] Encounter Details Date Type Department Care Team (Latest Contact Info) Description 06/09/[address] [facility] Endocrinology-[facility] [place] [address] [place] [address] Mine Tucker MD [address] [place], [place] [address] Nonspecific abnormal results of other endocrine function study (Primary Dx) Social History Tobacco Use Types Packs/Day Years Used Date Smoking Tobacco: Never Assessed Comments Unknown Sex and Gender Information Value Date Recorded Sex Assigned at Not on file Legal Sex Female 4:08 AM CLINICAL STAFF RN Gender Identity Not on file Sexual Orientation Not on file documented as of this encounter Plan of Treatment Not on file documented as of this encounter Visit Diagnoses Diagnosis Nonspecific abnormal results of other endocrine function study- Primary documented in this encounter Additional Health Concerns Infection Onset Date Last Indicated Resolved Time R/O COVID-19 10/21/2020 10/21/2020 10/28/2021 9:17 PM CLINICAL STAFF RN documented as of this encounter Care Teams Residential Field Manager Relationship Specialty Start Date End Date Jean Gibbons MD [address] [place] [address] PCP - General Family Practice 04/09/18 documented as of this encounter
--- OUTSIDE RECORDS SUMMARY | 2025-09-07 19:23 | XMS_ITS | Encounter Summary ---
Author Organization [facility] Address [address] [place] [address] Care Team Providers Care Tile Mechanic Name Role Phone Jean Gibbons MD Primary Care Provider +1 [phone] Encounter Details Date Type Department Care Team (Latest Contact Info) Description 12/09/2003 Outpatient Historical [facility] Medicine [place] [address] [address] Ben Winters DO NO ADDRESS ON FILE ABDOMINAL PAIN UNSPEC SITE (Primary Dx); DIARRHEA NOS Social History Tobacco Use Types Packs/Day Years Used Date Smoking Tobacco: Never Assessed Comments Unknown Sex and Gender Information Value Date Recorded Sex Assigned at Not on file Legal Sex Female 4:08 AM VENDING MACHINE ASSEMBLER Gender Identity Not on file Sexual Orientation Not on file documented as of this encounter Plan of Treatment Not on file documented as of this encounter Visit Diagnoses Diagnosis Abdominal pain, unspecified site- Primary Diarrhea documented in this encounter Additional Health Concerns Infection Onset Date Last Indicated Resolved Time R/O COVID-19 10/21/2020 10/21/2020 10/28/2021 9:17 PM VENDING MACHINE ASSEMBLER documented as of this encounter Care Teams Tile Mechanic Relationship Specialty Start Date End Date Jean Gibbons MD [address] [address] PCP - General Family Practice 04/09/18 documented as of this encounter
--- OUTSIDE RECORDS SUMMARY | 2025-09-07 19:23 | XMS_ITS | Encounter Summary ---
Author Organization [facility] Address [address] [place] [address] Care Team Providers Care Radiotelephone Technical Operator Name Role Phone Jean Gibbons MD Primary Care Provider +1 -[phone] Encounter Details Date Type Department Care Team (Latest Contact Info) Description 07/26/2004 Outpatient Historical [facility] Medicine [place] [address] [address] Deanna Parada NP NO ADDRESS ON FILE PNEUMONIA, ORGANISM NOS (Primary Dx); Diverticulosis of colon Social History Tobacco Use Types Packs/Day Years Used Date Smoking Tobacco: Never Assessed Comments Unknown Sex and Gender Information Value Date Recorded Sex Assigned at Not on file Legal Sex Female 4:08 AM BINDER LOCKSTITCH Gender Identity Not on file Sexual Orientation [...] R/O COVID-19 10/21/2020 10/21/2020 10/28/2021 9:17 PM BINDER LOCKSTITCH documented as of this encounter Care Teams Radiotelephone Technical Operator Relationship Specialty Start Date End Date Jean Gibbons MD [address] [address] PCP - General Family Practice 04/09/18 documented as of this encounter
--- OUTSIDE RECORDS SUMMARY | 2025-09-07 19:23 | XMS_ITS | Encounter Summary ---
Author Organization [facility] Address [address] [place] [address] Care Team Providers Care Customer Engineer Name Role Phone Jean Gibbons MD Primary Care Provider +1 -[phone] Encounter Details Date Type Department Care Team (Late st Contact Info) Description 07/10/2003 Outpatient Historical [facility] Medicine [place] [address] [address] Deanna Parada NP NO ADDRESS ON FILE Social History Tobacco Use Types Packs/Day Years Used Date Smoking Tobacco: Never Assessed Comments Unknown Sex and Gender Information Value Date Recorded Sex Assigned at Not on file Legal Sex Female 4:08 AM RHYTHMIC GYMNASTICS COACH Gender Identity Not on file Sexual Orientation Not on file documented as of this encounter Plan of Treatment Not on file documented as of this encounter Visit Diagnoses Not on filedocumented in this encounter Additional Health Concerns Infection Onset Date Last Indicated Resolved Time R/O COVID-19 10/21/2020 10/21/2020 10/28/2021 9:17 PM RHYTHMIC GYMNASTICS COACH documented as of this encounter Care Teams Customer Engineer Relationship Specialty Start Date End Date Jean Gibbons MD [address] [facility] [address] [place] [address] PCP - General Family Practice 04/09/18 documented as of this encounter
--- OUTSIDE RECORDS SUMMARY | 2025-09-07 19:23 | XMS_ITS | Encounter Summary ---
Author Organization [facility] Address [address] [place] [address] Care Team Providers Care Wood Milling Machine Tender Name Role Phone Jean Gibbons MD Primary Care Provider +1 -[phone] Encounter Details Date Type Department Care Team (Latest Contact Info) Description 03/08/2001 Outpatient Historical [facility] Endocrinology-[facility] [place] [address] [place] [address] Mine Tucker MD [address] [place], [place] [id number] Thyrotoxicosis without mention of goiter or other cause, without mention of thyrotoxic crisis or storm (Primary Dx) Social History Tobacco Use Types Packs/Day Years Used Date Smoking Tobacco: Never Assessed Comments Unknown Sex and Gender Information Value Date Recorded Sex Assigned at Not on file Legal Sex Female 4:08 AM SCIENTIFIC INFORMATICS PROJECT LEADER Gender Identity Not on file Sexual [...] R/O COVID-19 10/21/2020 10/21/2020 10/28/2021 9:17 PM SCIENTIFIC INFORMATICS PROJECT LEADER documented as of this encounter Care Teams Wood Milling Machine Tender Relationship Specialty Start Date End Date Jean Gibbons MD [address] [place] [address] PCP - General Family Practice 04/09/18 documented as of this encounter
--- OUTSIDE RECORDS SUMMARY | 2025-09-07 19:23 | XMS_ITS | Encounter Summary ---
Author Organization [facility] Address [address] [place] [address] Care Team Providers Care Tour Driver Name Role Phone Jean Gibbons MD Primary Care Provider +1 -[phone] Encounter Details Date Type Department Care Team (Latest Contact Info) Description 09/24/1998 Outpatient Historical [facility] Endocrinology-[place] [address] [place] [address] Mine Tucker MD [address] [place], [place] [id number] Thyrotoxicosis without mention of goiter or other cause, without mention of thyrotoxic crisis or storm (Primary Dx) Social History Tobacco Use Types Packs/Day Years Used Date Smoking Tobacco: Never Assessed Comments Unknown Sex and Gender Information Value Date Recorded Sex Assigned at Not on file Legal Sex Female 4:08 AM PHOTOGRAPHY INTERN Gender Identity Not on file Sexual [...] R/O COVID-19 10/21/2020 10/21/2020 10/28/2021 9:17 PM PHOTOGRAPHY INTERN documented as of this encounter Care Teams Tour Driver Relationship Specialty Start Date End Date Jean Gibbons MD [address] [place] [address] PCP - General Family Practice 04/09/18 documented as of this encounter
--- OUTSIDE RECORDS SUMMARY | 2025-09-07 19:23 | XMS_ITS | Encounter Summary ---
Author Organization [facility] Address [address] [place] [address] Care Team Providers Care Paper Products Supervisor Name Role Phone Jean Gibbons MD Primary Care Provider +1 [phone] Encounter Details Date Type Department Care Team (Late st Contact Info) Description 10/24/2007 Outpatient Historical [facility] Medicine [place] [address] [address] Deanna Parada NP NO ADDRESS ON FILE Social History Tobacco Use Types Packs/Day Years Used Date Smoking Tobacco: Never Assessed Comments Unknown Sex and Gender Information Value Date Recorded Sex Assigned at Not on file Legal Sex Female 4:08 AM OVEN BUILDER Gender Identity Not on file Sexual Orientation Not on file documented as of this encounter Plan of Treatment Not on file documented as of this encounter Visit Diagnoses Not on filedocumented in this encounter Additional Health Concerns Infection Onset Date Last Indicated Resolved Time R/O COVID-19 10/21/2020 10/21/2020 10/28/2021 9:17 PM OVEN BUILDER documented as of this encounter Care Teams Paper Products Supervisor Relationship Specialty Start Date End Date Jean Gibbons MD [address] [facility] [address] [place] [address] PCP - General Family Practice 04/09/18 documented as of this encounter
--- OUTSIDE RECORDS SUMMARY | 2025-09-07 19:23 | XMS_ITS | Encounter Summary ---
Author Organization [facility] Address [address] [place] [address] Care Team Providers Care Driver Retraining Instructor Name Role Phone Jean Gibbons MD Primary Care Provider +1 [phone] Encounter Details Date Type Department Care Team (Latest Contact Info) Description 07/08/1998 Outpatient Historical [facility] Endocrinology-[facility] [place] [address] [place] [address] Mine Tucker MD [address] [place], [place] [address] Nonspecific abnormal results of other endocrine function study (Primary Dx) Social History Tobacco Use Types Packs/Day Years Used Date Smoking Tobacco: Never Assessed Comments Unknown Sex and Gender Information Value Date Recorded Sex Assigned at Not on file Legal Sex Female 4:08 AM TECHNICAL SYSTEMS ARCHITECT Gender Identity Not on file Sexual Orientation Not on file documented as of this encounter Plan of Treatment Not on file documented as of this encounter Visit Diagnoses Diagnosis Nonspecific abnormal results of other endocrine function study- Primary documented in this encounter Additional Health Concerns Infection Onset Date Last Indicated Resolved Time R/O COVID-19 10/21/2020 10/21/2020 10/28/2021 9:17 PM TECHNICAL SYSTEMS ARCHITECT documented as of this encounter Care Teams Driver Retraining Instructor Relationship Specialty Start Date End Date Jean Gibbons MD [address] [place] [address] PCP - General Family Practice 04/09/18 documented as of this encounter
--- OUTSIDE RECORDS SUMMARY | 2025-09-07 19:23 | XMS_ITS | Encounter Summary ---
Author Organization [facility] Address [address] [place] [address] Care Team Providers Care Public Aid Eligibility Assistant Name Role Phone Jean Gibbons MD Primary Care Provider +1 [phone] Encounter Details Date Type Department Care Team (Late st Contact Info) Description 04/20/2000 Outpatient Historical [facility] Mine Tucker MD [address] [place] [address] Thyrotoxicosis without mention of goiter or other cause, without mention of thyrotoxic crisis or storm (Primary Dx) Social History Tobacco Use Types Packs/Day Years Used Date Smoking Tobacco: Never Assessed Comments Unknown Sex and Gender Information Value Date Recorded Sex Assigned at Not on file Legal Sex Female 4:08 AM TRAVELERS' AID WORKER Gender Identity Not on file Sexual [...] R/O COVID-19 10/21/2020 10/21/2020 10/28/2021 9:17 PM TRAVELERS' AID WORKER documented as of this encounter Care Teams Public Aid Eligibility Assistant Relationship Specialty Start Date End Date Jean Gibbons MD [address] [place] [address] PCP - General Family Practice 04/09/18 documented as of this encounter
--- OUTSIDE RECORDS SUMMARY | 2025-09-07 19:23 | XMS_ITS | Encounter Summary ---
Author Organization [facility] Address [address] [place] [address] Care Team Providers Care Merchandising Execution Manager Name Role Phone Jean Gibbons MD Primary Care Provider +1 [phone] Encounter Details Date Type Department Care Team (Latest Contact Info) Description 02/08/2004 Outpatient Historical [facility] Medicine [place] [address] [address] Ben Winters DO NO ADDRESS ON FILE EDEMA (Primary Dx); LUMBAGO; HYPOTHYROIDISM NOS Social History Tobacco Use Types Packs/Day Years Used Date Smoking Tobacco: Never Assessed Comments Unknown Sex and Gender Information Value Date Recorded Sex Assigned at Not on file Legal Sex Female 4:08 AM CARDIOLOGY TECHNOLOGIST Gender Identity Not on file Sexual Orientation Not on file documented as of this encounter Plan of Treatment Not on file documented as of this encounter Visit Diagnoses Diagnosis Edema- Primary Lumbago Unspecified hypothyroidism documented in this encounter Additional Health Concerns Infection Onset Date Last Indicated Resolved Time R/O COVID-19 10/21/2020 10/21/2020 10/28/2021 9:17 PM CARDIOLOGY TECHNOLOGIST documented as of this encounter Care Teams Merchandising Execution Manager Relationship Specialty Start Date End Date Jean Gibbons MD [address] [address] PCP - General Family Practice 04/09/18 documented as of this encounter
--- OUTSIDE RECORDS SUMMARY | 2025-09-07 19:23 | XMS_ITS | Encounter Summary ---
Author Organization [facility] Address [address] [place] [address] Care Team Providers Care Steam Powerplant Supervisor Name Role Phone Jean Gibbons MD Primary Care Provider +1 [phone] Encounter Details Date Type Department Care Team (Latest Contact Info) Description 11/28/1999 Outpatient Historical [facility] Podiatry[facility] [address] [place] [address] David Bailey, DPM NO ADDRESS ON FILE Hallux valgus (Primary Dx) Social History Tobacco Use Types Packs/Day Years Used Date Smoking Tobacco: Never Assessed Comments Unknown Sex and Gender Information Value Date Recorded Sex Assigned at Not on file Legal Sex Female 4:08 AM SQUARE DANCE CALLER Gender Identity Not on file Sexual Orientation Not on file documented as of this encounter Plan of Treatment Not on file documented as of this encounter Visit Diagnoses Diagnosis Hallux valgus- Primary Hallux valgus (acquired) documented in this encounter Additional Health Concerns Infection Onset Date Last Indicated Resolved Time R/O COVID-19 10/21/2020 10/21/2020 10/28/2021 9:17 PM SQUARE DANCE CALLER documented as of this encounter Care Teams Steam Powerplant Supervisor Relationship Specialty Start Date End Date Jean Gibbons MD [address] [place] [address] PCP - General Family Practice 04/09/18 documented as of this encounter
--- OUTSIDE RECORDS SUMMARY | 2025-09-07 19:23 | XMS_ITS | Encounter Summary ---
Author Organization [facility] Address [address] [place] [address] Care Team Providers Care Electronic Scale Assembler And Tester Name Role Phone Jean Gibbons MD Primary Care Provider +1 [phone] Encounter Details Date Type Department Care Team (Late st Contact Info) Description 03/13/2003 Outpatient Historical [facility] FY06 Deanna Parada NP NO ADDRESS ON FILE Social History Tobacco Use Types Packs/Day Years Used Date Smoking Tobacco: Never Assessed Comments Unknown Sex and Gender Information Value Date Recorded Sex Assigned at Not on file Legal Sex Female 4:08 AM JOB DEVELOPMENT SPECIALIST Gender Identity Not on file Sexual Orientation Not on file documented as of this encounter Plan of Treatment Not on file documented as of this encounter Visit Diagnoses Not on filedocumented in this encounter Additional Health Concerns Infection Onset Date Last Indicated Resolved Time R/O COVID-19 10/21/2020 10/21/2020 10/28/2021 9:17 PM JOB DEVELOPMENT SPECIALIST documented as of this encounter Care Teams Electronic Scale Assembler And Tester Relationship Specialty Start Date End Date eJan Gibbons MD [address] [facility] [place] [address] PCP - General Family Practice 04/09/18 documented as of this encounter
--- OUTSIDE RECORDS SUMMARY | 2025-09-07 19:23 | XMS_ITS | Clinical Summary ---
Author Organization [facility] Address [address] [facility] [address] [place] [address] Care Team Providers Care Security Inspector Name Role Phone Jean Gibbons MD Primary Care Provider +1 [phone] Allergies Active Allergy Reactions Criticality Noted Date [...] 0 Active fluticasone propionate (FLONASE) 50 mcg/spray [place], Suspension nasal inhaler SHAKE LIQUID AND USE [...] spine with radiculopathy, cerv ical region 12/26/2018 skilled nursing prescription opiate use 07/02/2018 Spinal stenosis of [...] How often do you attend chur or spiritism services? Never 04/07/2020 Do you belong to any clubs o r organizations such as sabianism groups, unions, fraternal or athletic groups, or [...] on file Legal Sex Female 4:08 AM TAX EXAMINER Gender Identity Not on file Sexual Orientation [...] A nnual Wellness Visit 04/08/2021 04/07/2020, 01/18/2017 INFLUENZA VACCINE (#1) 2025 0, 08/11/2020, 08/11/2019, Additional history exists COVID-19 Vaccine (3 - 2024-2 6 season) 2025 02/10/2021, 01/13/2021 OSTEOPOROSIS SCREENING 10/30/2027 10/30/2022 PNEUMOCOCCAL VACCINE 50+ [...] Recently Relevant to Health Maintenance Insurance [address] [place] [address] MEDICARE PART A AND B [facility] Advance Directives For more information, please contact: [phone] * Full Code (Latest Code Status on File) Date Activated Date Inactivated Comments 02/18/2015 12:52 PM 02/18/2015 5:48 PM * Full Code Date Activated Date Inactivated Comments 02/18/2015 11:12 AM 02/18/2015 12:52 PM * Full Code Date Activated Date Inactivated Comments 02/18/2015 10:15 AM 02/18/2015 11:12 AM * Full Code Date Activated Date Inactivated Comments 09/24/2013 9:28 AM 09/25/2013 2:01 AM Care Teams Security Inspector Relationship Specialty Start Date End Date Jean Gibbons MD [address] [phone] PCP - General Family Practice 04/09/18
--- OUTSIDE RECORDS SUMMARY | 2025-09-07 19:23 | XMS_ITS | Encounter Summary ---
Author Organization [facility] Address [address] [place] [address] Care Team Providers Care Processor Helper Name Role Phone Jean Gibbons MD Primary Care Provider +1 -[phone] Encounter Details Date Type Department Care Team [...] on file Legal Sex Female 4:08 AM UTILITIES EQUIPMENT REPAIRER Gender Identity Not on file [...] LIST <<<<<<<< TRIAGE NOTE >>>>>>>> Triage Note: Rubber Stamp Die Inspector Nat Arnold added this note on Jul [...] R/O COVID-19 10/21/2020 10/21/2020 10/28/2021 9:17 PM UTILITIES EQUIPMENT REPAIRER documented as of this encounter Care Teams Processor Helper Relationship Specialty Start Date End Date Jean Gibbons MD [address] [address] PCP - General Family Practice 04/09/18 documented as of this encounter
--- OUTSIDE RECORDS SUMMARY | 2025-09-07 19:23 | XMS_ITS | Encounter Summary ---
Author Organization [facility] Address [address] [place] [address] Care Team Providers Care Burner Shaft Name Role Phone Jean Gibbons MD Primary Care Provider + -[phone] Encounter Details Date Type Department Care Team (Latest Contact Info) Description 07/19/2004 Outpatient Historical [facility] Medicine [place] [address] [address] Lesley Ortega, FORESTRY FIRE AID [address] [place] [address] PNEUMONIA, ORGANISM NOS (Primary Dx) Social History Tobacco Use Types Packs/Day Years Used Date Smoking Tobacco: Never Assessed Comments Unknown Sex and Gender Information Value Date Recorded Sex Assigned at Not on file Legal Sex Female 4:08 AM WOOD TYPE CUTTER Gender Identity Not on file Sexual Orientation Not on file documented as of this encounter Plan of Treatment Not on file documented as of this encounter Visit Diagnoses Diagnosis Pneumonia, organism unspecified(486)- Primary Pneumonia, organism unspecified documented in this encounter Additional Health Concerns Infection Onset Date Last Indicated Resolved Time R/O COVID-19 10/21/2020 10/21/2020 10/28/2021 9:17 PM WOOD TYPE CUTTER documented as of this encounter Care Teams Burner Shaft Relationship Specialty Start Date End Date Jean Gibbons MD [address] [phone] PCP - General Family Practice 04/09/18 documented as of this encounter
--- OUTSIDE RECORDS SUMMARY | 2025-09-07 19:23 | XMS_ITS ---
Author Organization [facility] Address [address] [facility] [address] [place] [address] Care Team Providers Care Advertising Sales Agent Name Role Phone Jean Gibbons MD Primary Care Provider +1 -[phone] Active Problems Problem Noted Date Diagnosed Date [...] spine with radiculopathy, cerv ical region 12/26/2018 [facility] prescription opiate use 07/02/2018 Spinal stenosis of [...]
--- OUTSIDE RECORDS SUMMARY | 2025-09-07 19:23 | XMS_ITS | Encounter Summary ---
Author Organization [facility] Address [address] [place] [address] Care Team Providers Care Aoc Airspace Control Officer Name Role Phone Jean Gibbons MD Primary Care Provider +1 [phone] Encounter Details Date Type Department Care Team (Latest Contact Info) Description 08/01/2005 Outpatient Historical [facility] Medicine [address] [address] Ben Winters DO NO ADDRESS ON FILE BACKACHE NOS (Primary Dx); HYPERTENSION NOS; DEPRESSIVE DISORDER NEC Social History Tobacco Use Types Packs/Day Years Used Date Smoking Tobacco: Never Assessed Comments Unknown Sex and Gender Information Value Date Recorded Sex Assigned at Not on file Legal Sex Female 4:08 AM ASSOCIATE PROFESSOR OF COUNSELING Gender Identity Not on file Sexual Orientation [...] 10/21/2020 10/28/2021 9:17 PM ASSOCIATE PROFESSOR OF COUNSELING documented as of this encounter Care Teams Aoc Airspace Control Officer Relationship Specialty Start Date End Date Jean Gibbons MD [address] [address] PCP - General Family Practice 04/09/18 documented as of this encounter
--- OUTSIDE RECORDS SUMMARY | 2025-09-07 19:23 | XMS_ITS | Encounter Summary ---
Author Organization [facility] Address [address] [place]: Epic Prelude ADT [place] [address] Care Team Providers Care Road Boss Name Role Phone Jean Gibbons MD Primary Care Provider +1 -[phone] Encounter Details Date Type Department Care Team (Late st Contact Info) Description 11/14/1999 Outpatient Historical David Bailey, DPM NO ADDRESS ON FILE Social History Tobacco Use Types Packs/Day Years Used Date Smoking Tobacco: Never Assessed Comments Unknown Sex and Gender Information Value Date Recorded Sex Assigned at Not on file Legal Sex Female 4:08 AM FRESH FOODS CLERK Gender Identity Not on file Sexual Orientation Not on file documented as of this encounter Plan of Treatment Not on file documented as of this encounter Visit Diagnoses Not on filedocumented in this encounter Additional Health Concerns Infection Onset Date Last Indicated Resolved Time R/O COVID-19 10/21/2020 10/21/2020 10/28/2021 9:17 PM FRESH FOODS CLERK documented as of this encounter Care Teams Road Boss Relationship Specialty Start Date End Date Jean Gibbons MD [address] [facility] [place] [address] PCP - General Family Practice 04/09/18 documented as of this encounter
--- OUTSIDE RECORDS SUMMARY | 2025-09-07 19:23 | XMS_ITS | Encounter Summary ---
Author Organization [facility] Address [address] [place] [address] Care Team Providers Care Associate Doctor Name Role Phone Jean Gibbons MD Primary Care Provider +1 -[phone] Encounter Details Date Type Department Care Team (Late st Contact Info) Description 10/04/2002 Inpatient Historical [facility] Theo Rust MD NO ADDRESS ON FILE CHEST PAIN NEC (Primary Dx) Social History Tobacco Use Types Packs/Day Years Used Date Smoking Tobacco: Never Assessed Comments Unknown Sex and Gender Information Value Date Recorded Sex Assigned at Not on file Legal Sex Female 4:08 AM DISASTER RECOVERY ANALYST Gender Identity Not on file Sexual Orientation Not on file documented as of this encounter Plan of Treatment Not on file documented as of this encounter Visit Diagnoses Diagnosis Other chest pain- Primary documented in this encounter Additional Health Concerns Infection Onset Date Last Indicated Resolved Time R/O COVID-19 10/21/2020 10/21/2020 10/28/2021 9:17 PM DISASTER RECOVERY ANALYST documented as of this encounter Care Teams Associate Doctor Relationship Specialty Start Date End Date Jean Gibbons MD [address] [place] [address] PCP - General Family Practice 04/09/18 documented as of this encounter
--- OUTSIDE RECORDS SUMMARY | 2025-09-07 19:23 | XMS_ITS | Encounter Summary ---
Author Organization [facility] Address [address] [place] [address] Care Team Providers Care Cooperative Manager Name Role Phone Jean Gibbons MD Primary Care Provider +1 -[phone] Encounter Details Date Type Department Care Team (Latest Contact Info) Description 08/31/2003 Outpatient Historical [facility] Medicine [address] [address] Ben Winters DO NO ADDRESS ON FILE MYALGIA AND MYOSITIS NOS (Primary Dx); Sprain of neck; OSTEOARTHROS NOS-UNSPEC Social History Tobacco Use Types Packs/Day Years Used Date Smoking Tobacco: Never Assessed Comments Unknown Sex and Gender Information Value Date Recorded Sex Assigned at Not on file Legal Sex Female 4:08 AM PHOTOGRAMMETRIST Gender Identity Not on file Sexual Orientation [...] R/O COVID-19 10/21/2020 10/21/2020 10/28/2021 9:17 PM PHOTOGRAMMETRIST documented as of this encounter Care Teams Cooperative Manager Relationship Specialty Start Date End Date Jean Gibbons MD [address] [address] PCP - General Family Practice 04/09/18 documented as of this encounter
--- OUTSIDE RECORDS SUMMARY | 2025-09-07 19:23 | XMS_ITS | Encounter Summary ---
Author Organization [facility] Address [address] [place] [address] Care Team Providers Care Ccie Name Role Phone Jean Gibbons MD Primary Care Provider +1 -[phone] Encounter Details Date Type Department Care Team (Latest Contact Info) Description 09/08/2004 Outpatient Historical [facility] Medicine [place] [address] [address] Lesley Ortega, VESSEL CAPTAIN [address] [place] [address] Pneumococcal pneumonia (Primary Dx) Social History Tobacco Use Types Packs/Day Years Used Date Smoking Tobacco: Never Assessed Comments Unknown Sex and Gender Information Value Date Recorded Sex Assigned at Not on file Legal Sex Female 4:08 AM SENIOR SYSTEMS SOFTWARE ENGINEER Gender Identity Not on file Sexual Orientation Not on file documented as of this encounter Plan of Treatment Not on file documented as of this encounter Visit Diagnoses Diagnosis Pneumococcal pneumonia- Primary Pneumococcal pneumonia (streptococcus pneumoniae pneumonia) documented in this encounter Additional Health Concerns Infection Onset Date Last Indicated Resolved Time R/O COVID-19 10/21/2020 10/21/2020 10/28/2021 9:17 PM SENIOR SYSTEMS SOFTWARE ENGINEER documented as of this encounter Care Teams Ccie Relationship Specialty Start Date End Date Jean Gibbons MD [address] [address] PCP - General Family Practice 04/09/18 documented as of this encounter
--- OUTSIDE RECORDS SUMMARY | 2025-09-07 19:23 | XMS_ITS | Encounter Summary ---
Author Organization [facility] Address [address] [place] [address] Care Team Providers Care Golf Course Ranger Name Role Phone Jean Gibbons MD Primary Care Provider +1 -[phone] Encounter Details Date Type Department Care Team (Late st Contact Info) Description 05/20/2018 Ancillary Orders [facility] [address] [place] [address] Amberly Lima FNP [address] [place] [address] Breast tenderness in female Social [...] on file Legal Sex Female 4:08 AM CLEANING TEAM MEMBER Gender Identity Not on file Sexual Orientation [...] be scanned to PACS. us Amberly Lima CHANNEL PROCESS SUPERVISOR DIAGNOSTIC IMAGING ORDERABLES Fi nal Result * MAMMO PRIOR STUDY (04/15/2015 12:30 PM CDT) Narrative 05/20/2018 12:26 PM CDT This exam was auto finalized to allow images to be scanned to PACS. us Amberly Lima CHANNEL PROCESS SUPERVISOR DIAGNOSTIC IMAGING ORDERABLES Fi nal Result * MAMMO PRIOR STUDY (04/03/2014 12:30 PM CDT) Narrative 05/20/2018 12:27 PM CDT This exam was auto finalized to allow images to be scanned to PACS. us Amberly Lima CHANNEL PROCESS SUPERVISOR DIAGNOSTIC IMAGING ORDERABLES Fi nal Result * MAMMO PRIOR STUDY (04/15/2013 12:55 PM CDT) Narrative 05/20/2018 12:53 PM CDT This exam was auto finalized to allow images to be scanned to PACS. us Amberly Lima CHANNEL PROCESS SUPERVISOR DIAGNOSTIC IMAGING ORDERABLES Fi nal Result * MAMMO PRIOR STUDY (04/15/2013 12:45 PM CDT) Narrative 05/20/2018 12:44 PM CDT This exam was auto finalized to allow images to be scanned to PACS. us Amberly Lima CHANNEL PROCESS SUPERVISOR DIAGNOSTIC IMAGING ORDERABLES Fi nal Result * MAMMO PRIOR STUDY (03/25/2013 12:50 PM CDT) Narrative 05/20/2018 12:47 PM CDT This exam was auto finalized to allow images to be scanned to PACS. us Amberly Lima CHANNEL PROCESS SUPERVISOR DIAGNOSTIC IMAGING ORDERABLES Fi nal Result * MAMMO PRIOR STUDY (02/05/2012 12:55 PM CDT) Narrative 05/20/2018 12:53 PM CDT This exam was auto finalized to allow images to be scanned to PACS. us Amberly Lima CHANNEL PROCESS SUPERVISOR DIAGNOSTIC IMAGING ORDERABLES Fi nal Result * MAMMO PRIOR STUDY (02/05/2012 12:50 PM CDT) Narrative 05/20/2018 12:46 PM CDT This exam was auto finalized to allow images to be scanned to PACS. us Gaming Clarence CHANNEL PROCESS SUPERVISOR DIAGNOSTIC IMAGING ORDERABLES Fi nal Result * MAMMO PRIOR STUDY (09/18/2011 12:55 PM CLEANING TEAM MEMBER) Narrative 05/20/2018 12:54 PM CDT This exam was auto finalized to allow images to be scanned to PACS. us Amberly Lima CHANNEL PROCESS SUPERVISOR DIAGNOSTIC IMAGING ORDERABLES Fi nal Result * MAMMO PRIOR STUDY (06/13/2011 12:55 PM CDT) Narrative 05/20/2018 12:54 PM CDT This exam was auto finalized to allow images to be scanned to PACS. us Amberly Lima CHANNEL PROCESS SUPERVISOR DIAGNOSTIC IMAGING ORDERABLES Fi nal Result * MAMMO PRIOR STUDY (06/02/2011 12:45 PM CDT) Narrative 05/20/2018 12:44 PM CDT This exam was auto finalized to allow images to be scanned to PACS. us Amberly Lima CHANNEL PROCESS SUPERVISOR DIAGNOSTIC IMAGING ORDERABLES Fi nal Result * MAMMO PRIOR STUDY (05/16/2011 12:50 PM CDT) Narrative 05/20/2018 12:47 PM CDT This exam was auto finalized to allow images to be scanned to PACS. us Mejiamartine Lima CHANNEL PROCESS SUPERVISOR DIAGNOSTIC IMAGING ORDERABLES Fi nal Result * MAMMO PRIOR STUDY (03/31/2010 12:45 PM CDT) Narrative 05/20/2018 12:45 PM CDT This exam was auto finalized to allow images to be scanned to PACS. us Amberly Lima CHANNEL PROCESS SUPERVISOR DIAGNOSTIC IMAGING ORDERABLES Fi nal Result * MAMMO PRIOR STUDY (03/04/2009 12:45 PM CDT) Narrative 05/20/2018 12:45 PM CDT This exam was auto finalized to allow images to be scanned to PACS. us Amberly Lima CHANNEL PROCESS SUPERVISOR DIAGNOSTIC IMAGING ORDERABLES Fi nal Result * MAMMO PRIOR STUDY (01/19/2009 1:00 PM CDT) Narrative 05/20/2018 12:57 PM CDT This exam was auto finalized to allow images to be scanned to PACS. us Amberly Lima CHANNEL PROCESS SUPERVISOR DIAGNOSTIC IMAGING ORDERABLES Fi nal Result * MAMMO PRIOR STUDY (01/19/2009 12:45 PM CDT) Narrative 05/20/2018 12:45 PM CDT This exam was auto finalized to allow images to be scanned to PACS. us Amberly Lima CHANNEL PROCESS SUPERVISOR DIAGNOSTIC IMAGING ORDERABLES Fi nal Result * MAMMO PRIOR STUDY (09/10/2008 1:00 PM CDT) Narrative 05/20/2018 12:57 PM CDT This exam was auto finalized to allow images to be scanned to PACS. us Amberly Lima CHANNEL PROCESS SUPERVISOR DIAGNOSTIC IMAGING ORDERABLES Fi nal Result * MAMMO PRIOR STUDY (09/10/2008 12:50 PM CDT) Narrative 05/20/2018 12:46 PM CDT This exam was auto finalized to allow images to be scanned to PACS. us Amberly Lima CHANNEL PROCESS SUPERVISOR DIAGNOSTIC IMAGING ORDERABLES Fi nal Result * MAMMO PRIOR STUDY (03/02/2008 1:00 PM CDT) Narrative 05/20/2018 12:58 PM CDT This exam was auto finalized to allow images to be scanned to PACS. Amberly Clarence [facility] DIAGNOSTIC IMAGING ORDERABLES Fi nal Result * MAMMO PRIOR STUDY (03/02/2008 12:50 PM CDT) Narrative 05/20/2018 12:46 PM CDT This exam was auto finalized to allow images to be scanned to PACS. Amberly Clarence [facility] DIAGNOSTIC IMAGING ORDERABLES Fi nal Result [...] R/O COVID-19 10/21/2020 10/21/2020 10/28/2021 9:17 PM CLEANING TEAM MEMBER Assessment Noted Time PHQ-9 Depression Total Score: 1 01/01/20 18 11:00 AM CLEANING TEAM MEMBER documented as of this encounter Care Teams Golf Course Ranger Relationship Specialty Start Date End Date Jean Gibbons MD [address] [phone] PCP - General Family Practice 04/09/18 documented as of this encounter
--- OUTSIDE RECORDS SUMMARY | 2025-09-07 19:23 | XMS_ITS | Encounter Summary ---
Author Organization [facility] Address [address] [place] [address] Care Team Providers Care Coil Wrapper Name Role Phone Jean Gibbons MD Primary Care Provider +1 [phone] Encounter Details Date Type Department Care Team (Latest Contact Info) Description 09/28/2005 Outpatient Historical [facility] Medicine [address] [address] Lesley Ortega, DOCTOR'S ASSISTANT [address] [place] [address] ACUTE URI NOS (Primary Dx); HYPOTHYROIDISM NOS; EXAM AFTR OTHR HI-RISK COMPL RX NEC; COUGH Social History Tobacco Use Types Packs/Day Years Used Date Smoking Tobacco: Never Assessed Comments Unknown Sex and Gender Information Value Date Recorded Sex Assigned at Not on file Legal Sex Female 4:08 AM FIBREGLASS GUN HAND Gender Identity Not on file Sexual Orientation [...] R/O COVID-19 10/21/2020 10/21/2020 10/28/2021 9:17 PM FIBREGLASS GUN HAND documented as of this encounter Care Teams Coil Wrapper Relationship Specialty Start Date End Date Jean Gibbons MD [address] [address] PCP - General Family Practice 04/09/18 documented as of this encounter
--- OUTSIDE RECORDS SUMMARY | 2025-09-07 19:23 | XMS_ITS | Encounter Summary ---
Author Organization [facility] Address [address] [place] [address] Care Team Providers Care Tariff Publishing Agent Name Role Phone Jean Gibbons MD Primary Care Provider +1 [phone] Encounter Details Date Type Department Care Team (Latest Contact Info) Description 11/21/1999 Outpatient Historical [facility] [address] [place] [address] David Bailey, DPM NO ADDRESS ON FILE Hallux valgus (Primary Dx) Social History Tobacco Use Types Packs/Day Years Used Date Smoking Tobacco: Never Assessed Comments Unknown Sex and Gender Information Value Date Recorded Sex Assigned at Not on file Legal Sex Female 4:08 AM RESOLUTION MANAGER Gender Identity Not on file Sexual Orientation Not on file documented as of this encounter Plan of Treatment Not on file documented as of this encounter Visit Diagnoses Diagnosis Hallux valgus- Primary Hallux valgus (acquired) documented in this encounter Additional Health Concerns Infection Onset Date Last Indicated Resolved Time R/O COVID-19 10/21/2020 10/21/2020 10/28/2021 9:17 PM RESOLUTION MANAGER documented as of this encounter Care Teams Tariff Publishing Agent Relationship Specialty Start Date End Date Jean Gibbons MD [address] [place] [address] PCP - General Family Practice 04/09/18 documented as of this encounter
--- OUTSIDE RECORDS SUMMARY | 2025-09-07 19:23 | XMS_ITS | Encounter Summary ---
Author Organization [facility] Address [address] [place] [address] Care Team Providers Care Optometric Assistant Name Role Phone Jean Gibbons MD Primary Care Provider +1 [phone] Encounter Details Date Type Department Care Team (Late st Contact Info) Description 08/31/1998 Outpatient Historical [facility] Neurology [address] [place] [address] Nicolas Oviedo MD [address] [place] [address] Pain in limb (Primary Dx) Social History Tobacco Use Types Packs/Day Years Used Date Smoking Tobacco: Never Assessed Comments Unknown Sex and Gender Information Value Date Recorded Sex Assigned at Not on file Legal Sex Female 4:08 AM JIGSAWYER Gender Identity Not on file Sexual Orientation Not on file documented as of this encounter Plan of Treatment Not on file documented as of this encounter Visit Diagnoses Diagnosis Pain in limb- Primary Pain in soft tissues of limb documented in this encounter Additional Health Concerns Infection Onset Date Last Indicated Resolved Time R/O COVID-19 10/21/2020 10/21/2020 10/28/2021 9:17 PM JIGSAWYER documented as of this encounter Care Teams Optometric Assistant Relationship Specialty Start Date End Date Jean Gibbons MD [address] [place] [address] PCP - General Family Practice 04/09/18 documented as of this encounter
--- OUTSIDE RECORDS SUMMARY | 2025-09-07 19:23 | XMS_ITS | Encounter Summary ---
Author Organization [facility] Address [address] [place] [address] Care Team Providers Care Piping Designer Name Role Phone Jean Gibbons MD Primary Care Provider +1 [phone] Encounter Details Date Type Department Care Team (Late st Contact Info) Description 11/18/2007 Outpatient Historical [facility] Medicine [place] [address] [address] Deanna Parada NP NO ADDRESS ON FILE Social History Tobacco Use Types Packs/Day Years Used Date Smoking Tobacco: Never Assessed Comments Unknown Sex and Gender Information Value Date Recorded Sex Assigned at Not on file Legal Sex Female 4:08 AM PRODUCT TEST ENGINEER Gender Identity Not on file Sexual Orientation Not on file documented as of this encounter Plan of Treatment Not on file documented as of this encounter Visit Diagnoses Not on filedocumented in this encounter Additional Health Concerns Infection Onset Date Last Indicated Resolved Time R/O COVID-19 10/21/2020 10/21/2020 10/28/2021 9:17 PM PRODUCT TEST ENGINEER documented as of this encounter Care Teams Piping Designer Relationship Specialty Start Date End Date Jean Gibbons MD [address] [facility] [address] [place] [address] PCP - General Family Practice 04/09/18 documented as of this encounter
--- OUTSIDE RECORDS SUMMARY | 2025-09-07 19:23 | XMS_ITS | Encounter Summary ---
Author Organization [facility] Address [address] [place] [address] Care Team Providers Care Artificial Pearl Maker Name Role Phone Jean Gibbons MD Primary Care Provider [phone] [phone] Encounter Details Date Type Department Care Team (Latest Contact Info) Description 02/23/2004 Outpatient Historical [facility] Ian Ryan, DO [address] [address] [place] [address] ADMINISTRTVE ENCOUNT NOS (Primary Dx) Social History Tobacco Use Types Packs/Day Years Used Date Smoking Tobacco: Never Assessed Comments Unknown Sex and Gender Information Value Date Recorded Sex Assigned at Not on file Legal Sex Female 4:08 AM TICKET DISPENSER CHANGER Gender Identity Not on file Sexual Orientation Not on file documented as of this encounter Plan of Treatment Not on file documented as of this encounter Visit Diagnoses Diagnosis Encounters for unspecified administrative purpose- Primary documented in this encounter Additional Health Concerns Infection Onset Date Last Indicated Resolved Time R/O COVID-19 10/21/2020 10/21/2020 10/28/2021 9:17 PM TICKET DISPENSER CHANGER documented as of this encounter Care Teams Artificial Pearl Maker Relationship Specialty Start Date End Date Jean Gibbons MD [address] [place] [address] PCP - General Family Practice 04/09/18 documented as of this encounter
--- OUTSIDE RECORDS SUMMARY | 2025-09-07 19:23 | XMS_ITS | Encounter Summary ---
Author Organization [facility] Address [address] [place] [address] Care Team Providers Care Motor Vehicle Operator Road Supervisor Name Role Phone Jean Gibbons MD Primary Care Provider +1 [phone] Encounter Details Date Type Department Care Team (Late st Contact Info) Description 09/20/2018 Ancillary Orders [facility] Pre-Registration [place] CALL TO MAKE APPOINTMENT ONLY [address] [place] [address] Jean Gibbons MD [address] [facility] [address] [place] [address] Abnormal mammogram Social History Tobacco Use Types Packs/Day Years Used Date Smoking Tobacco: Former Cigarettes Q uit: 08/12/1990 Smokeless Tobacco: Never Comments:quit in the Alcohol Use Standard Drinks/Week Comments No 0 (1 standard drink = 0.6 oz pur e alcohol) Comments No Sex and Gender Information Value Date Recorded Sex Assigned at Not on file Legal Sex Female 4:08 AM RN STAFF Gender Identity Not on file Sexual Orientation [...] R/O COVID-19 10/21/2020 10/21/2020 10/28/2021 9:17 PM RN STAFF Assessment Noted Time PHQ-9 Depression Total Score: 1 01/01/20 18 11:00 AM RN STAFF documented as of this encounter Care Teams Motor Vehicle Operator Road Supervisor Relationship Specialty Start Date End Date Jean Gibbons MD [address] [address] PCP - General Family Practice 04/09/18 documented as of this encounter
--- OUTSIDE RECORDS SUMMARY | 2025-09-07 19:23 | XMS_ITS | Encounter Summary ---
Author Organization [facility] Address [address] [place] [address] Care Team Providers Care Inspector Handbag Frames Name Role Phone Jean Gibbons MD Primary Care Provider +1 [phone] Encounter Details Date Type Department Care Team (Latest Contact Info) Description 04/27/2004 Outpatient Historical [facility] Medicine [address] [address] Nicolas Parks PA NO ADDRESS ON FILE ALLERGY, UNSPECIFIED (Primary Dx); DEPRESSIVE DISORDER NEC; JOINT PAIN-UNSPEC Social History Tobacco Use Types Packs/Day Years Used Date Smoking Tobacco: Never Assessed Comments Unknown Sex and Gender Information Value Date Recorded Sex Assigned at Not on file Legal Sex Female 4:08 AM HVAC SERVICE TECH Gender Identity Not on file Sexual [...] R/O COVID-19 10/21/2020 10/21/2020 10/28/2021 9:17 PM HVAC SERVICE TECH documented as of this encounter Care Teams Inspector Handbag Frames Relationship Specialty Start Date End Date Jean Gibbons MD [address] [address] PCP - General Family Practice 04/09/18 documented as of this encounter
--- OUTSIDE RECORDS SUMMARY | 2025-09-07 19:23 | XMS_ITS | Encounter Summary ---
Author Organization [facility] Address [address] [place] [address] Care Team Providers Care Employment Coach Name Role Phone Jean Gibbons MD Primary Care Provider +1 -[phone] Encounter Details Date Type Department Care Team (Late st Contact Info) Description 03/02/2000 Outpatient Historical [facility] Social History Tobacco Use Types Packs/Day Years Used Date Smoking Tobacco: Never Assessed Comments Unknown Sex and Gender Information Value Date Recorded Sex Assigned at Not on file Legal Sex Female 4:08 AM DIRECTOR MACHINE Gender Identity Not on file Sexual Orientation Not on file documented as of this encounter Plan of Treatment Not on file documented as of this encounter Visit Diagnoses Not on filedocumented in this encounter Additional Health Concerns Infection Onset Date Last Indicated Resolved Time R/O COVID-19 10/21/2020 10/21/2020 10/28/2021 9:17 PM DIRECTOR MACHINE documented as of this encounter Care Teams Employment Coach Relationship Specialty Start Date End Date Jean Gibbons MD [address] [place] [address] PCP - General Family Practice 04/09/18 documented as of this encounter
--- OUTSIDE RECORDS SUMMARY | 2025-09-07 19:23 | XMS_ITS | Encounter Summary ---
Author Organization [facility] Address [address] [place] [address] Care Team Providers Care Controller [place] Name Role Phone Jean Gibbons MD Primary Care Provider +1 -[phone] Encounter Details Date Type Department Care Team (Latest Contact Info) Description 09/22/1999 Outpatient Historical [facility] [place] [address] [place] [address] David Bailey, DPM NO ADDRESS ON FILE Hallux valgus (Primary Dx) Social History Tobacco Use Types Packs/Day Years Used Date Smoking Tobacco: Never Assessed Comments Unknown Sex and Gender Information Value Date Recorded Sex Assigned at Not on file Legal Sex Female 4:08 AM CURB WORKER Gender Identity Not on file Sexual Orientation Not on file documented as of this encounter Plan of Treatment Not on file documented as of this encounter Visit Diagnoses Diagnosis Hallux valgus- Primary Hallux valgus (acquired) documented in this encounter Additional Health Concerns Infection Onset Date Last Indicated Resolved Time R/O COVID-19 10/21/2020 10/21/2020 10/28/2021 9:17 PM CURB WORKER documented as of this encounter Care Teams Controller [place] Relationship Specialty Start Date End Date Jean Gibbons MD [address] [place] [address] PCP - General Family Practice 04/09/18 documented as of this encounter
--- OUTSIDE RECORDS SUMMARY | 2025-09-07 19:23 | XMS_ITS | Encounter Summary ---
Author Organization [facility] Address [address] [place] [address] Care Team Providers Care Commodity Buyer Name Role Phone Jean Gibbons MD Primary Care Provider +1 [phone] Encounter Details Date Type Department Care Team (Latest Contact Info) Description 01/31/2005 Outpatient Historical [facility] Medicine [place] [address] [address] Lesley Ortega, CAMPAIGN COORDINATOR [address] [place] [address] ACUTE URI NOS (Primary Dx); ACUTE PHARYNGITIS; GENERAL OSTEOARTHROSIS Social History Tobacco Use Types Packs/Day Years Used Date Smoking Tobacco: Never Assessed Comments Unknown Sex and Gender Information Value Date Recorded Sex Assigned at Not on file Legal Sex Female 4:08 AM OVEN LABORER Gender Identity Not on file Sexual [...] COVID-19 10/21/2020 10/21/2020 10/28/2021 9:17 PM OVEN LABORER documented as of this encounter Care Teams Commodity Buyer Relationship Specialty Start Date End Date Jean Gibbons MD [address] [facility] [address] [place] [address] PCP - General Family Practice 04/09/18 documented as of this encounter
--- OUTSIDE RECORDS SUMMARY | 2025-09-07 19:24 | XMS_ITS | Encounter Summary ---
Author Organization [facility] Address [address] [place] [address] Care Team Providers Care Route Sales Representative Name Role Phone Jean Gibbons MD Primary Care Provider +1 [phone] Encounter Details Date Type Department Care Team (Latest Contact Info) Description 05/14/2006 Outpatient Historical [facility] Medicine [place] [address] [address] Ben Winters DO NO [...] on file Legal Sex Female 4:08 AM WING MAILER MACHINE OPERATOR Gender Identity Not on file [...] R/O COVID-19 10/21/2020 10/21/2020 10/28/2021 9:17 PM WING MAILER MACHINE OPERATOR documented as of this encounter Care Teams Route Sales Representative Relationship Specialty Start Date End Date Jean Gibbons MD [address] [address] PCP - General Family Practice 04/09/18 documented as of this encounter
--- OUTSIDE RECORDS SUMMARY | 2025-09-07 19:24 | XMS_ITS | Encounter Summary ---
Author Organization [facility] Address [address] [place] [address] Care Team Providers Care Skin Tanner Name Role Phone Jean Gbibons MD Primary Care Provider +1 [phone] Encounter Details Date Type Department Care Team (Latest Contact Info) Description 08/27/2006 Outpatient Historical [facility] Medicine [place] [address] [address] Ben Winters DO NO ADDRESS ON FILE Vaccine for influenza (Primary Dx) Social History Tobacco Use Types Packs/Day Years Used Date Smoking Tobacco: Never Assessed Comments Unknown Sex and Gender Information Value Date Recorded Sex Assigned at Not on file Legal Sex Female 4:08 AM POMOLOGIST Gender Identity Not on file Sexual Orientation Not on file documented as of this encounter Plan of Treatment Not on file documented as of this encounter Visit Diagnoses Diagnosis Vaccine for influenza- Primary Need for prophylactic vaccination and inoculation against influenza documented in this encounter Additional Health Concerns Infection Onset Date Last Indicated Resolved Time R/O COVID-19 10/21/2020 10/21/2020 10/28/2021 9:17 PM POMOLOGIST documented as of this encounter Care Teams Skin Tanner Relationship Specialty Start Date End Date Jean Gibbons MD [address] [address] PCP - General Family Practice 04/09/18 documented as of this encounter
--- OUTSIDE RECORDS SUMMARY | 2025-09-07 19:24 | XMS_ITS | Encounter Summary ---
Author Organization [facility] Address [address] [place] [address] Care Team Providers Care Extension Professor Name Role Phone Jean Gibbons MD Primary Care Provider [phone] [phone] Reason for Referral * Radiology Services (Routine) - Closed Specialty Diagnoses / Procedures Referred By Contac t Referred To Contact Diagnoses Abnormal mammogram Procedures MAMMO DIAG BILAT 3D SHAI W OR WO CAD MAMMO DIAGNOSTIC BILATERAL W OR WO CAD CHG DIAGNOSTIC MAMMOGRAPHY COMPUTER-AIDED DETCJ BI CHG DIGITAL BREAST TOMOSYNTHESIS BILATERAL Amberly Lima FNP Phone: tel: fax: [facility] Pre-Registration [place] CALL TO MAKE APPOINTMENT ONLY [address] [place] [address] Phone: tel: fax: Referral ID Status Reason Start Date Expiration Date Visits Re quested Visits Authorized [id number] Closed 02/24/2019 03/26/2020 1 1 Encounter Details Date Type Department Care Team (Late st Contact Info) Description 04/10/2019 Ancillary Orders [facility] [address] [address] [address] Amberly Lima FNP [address] [place] [address] Abnormal mammogram Social History Tobacco Use Types Packs/Day Years Used Date Smoking Tobacco: Former Cigarettes Q uit: 08/12/1990 Smokeless Tobacco: Never Comments:quit in the Alcohol Use Standard Drinks/Week Comments No 0 (1 standard drink = 0.6 oz pur e alcohol) Comments No Sex and Gender Information Value Date Recorded Sex Assigned at Not on file Legal Sex Female 4:08 AM LINE O SCRIBE OPERATOR Gender Identity Not on file Sexual [...] RECOMMENDATIONS: Bilateral diagnostic mammogram in one year. [id number] Procedure Note Edgardo Ambrose MD - 04/16/2019 [...] RECOMMENDATIONS: Bilateral diagnostic mammogram in one year. [id number] Amberly Lima CHIEF SPECIALIST LEED MAMMO ORDERABLES Final Result documented in this encounter Visit Diagnoses Diagnosis Abnormal mammogram Abnormal mammogram, unspecified Abnormal mammogram Abnormal mammogram, unspecified documented in this encounter Additional Health Concerns Infection Onset Date Last Indicated Resolved Time R/O COVID-19 10/21/2020 10/21/2020 10/28/2021 9:17 PM LINE O SCRIBE OPERATOR Assessment Noted Time PHQ-9 Depression Total Score: 1 01/24/20 19 10:00 AM CDT documented as of this encounter Care Teams Extension Professor Relationship Specialty Start Date End Date Jean Gibbons MD [address] [phone] PCP - General Family Practice 04/09/18 documented as of this encounter
--- OUTSIDE RECORDS SUMMARY | 2025-09-07 19:24 | XMS_ITS | Encounter Summary ---
Author Organization [facility] Address [address] [place] [address] Care Team Providers Care Industrial Gas Production Operator Name Role Phone Jean Gibbons MD Primary Care Provider [phone] Encounter Details Date Type Department Care Team (Latest Contact Info) Description 07/03/2006 Outpatient Historical [facility] [place] [address] [address] Ben Winters DO NO ADDRESS ON FILE Unspecified Backache (Primary Dx); Unspecified Essential Hypertension; Generalized Osteoarthrosis, Involving Multiple Sites Social History Tobacco Use Types Packs/Day Years Used Date Smoking Tobacco: Never Assessed Comments Unknown Sex and Gender Information Value Date Recorded Sex Assigned at Not on file Legal Sex Female 4:08 AM INSPECTOR AND UNLOADER Gender Identity Not on file Sexual Orientation Not on file documented as of this encounter Plan of Treatment Not on file documented as of this encounter Visit Diagnoses Diagnosis Backache, unspecified- Primary Unspecified essential hypertension Generalized osteoarthrosis, involving multiple sites documented in this encounter Additional Health Concerns Infection Onset Date Last Indicated Resolved Time R/O COVID-19 10/21/2020 10/21/2020 10/28/2021 9:17 PM INSPECTOR AND UNLOADER documented as of this encounter Care Teams Industrial Gas Production Operator Relationship Specialty Start Date End Date Jean Gibbons MD [address] [address] PCP - General Family Practice 04/09/18 documented as of this encounter
--- OUTSIDE RECORDS SUMMARY | 2025-09-07 19:24 | XMS_ITS | Encounter Summary ---
Author Organization [facility] Address [address] [place] [address] Care Team Providers Care Plating Equipment Tender Name Role Phone Jean Gibbons MD Primary Care Provider [phone] Encounter Details Date Type Department Care Team (Latest Contact Info) Description 01/17/2006 Outpatient Historical [facility] [place] [address] [address] Ben Winters DO NO ADDRESS ON FILE Open Wound of Foot (Primary Dx) Social History Tobacco Use Types Packs/Day Years Used Date Smoking Tobacco: Never Assessed Comments Unknown Sex and Gender Information Value Date Recorded Sex Assigned at Not on file Legal Sex Female 4:08 AM ASSISTANT PRESSMAN Gender Identity Not on file Sexual Orientation Not on file documented as of this encounter Plan of Treatment Not on file documented as of this encounter Visit Diagnoses Diagnosis Open wound of foot except toe(s) alone, without mention of complication- Primary documented in this encounter Additional Health Concerns Infection Onset Date Last Indicated Resolved Time R/O COVID-19 10/21/2020 10/21/2020 10/28/2021 9:17 PM ASSISTANT PRESSMAN documented as of this encounter Care Teams Plating Equipment Tender Relationship Specialty Start Date End Date Jean Gibbons MD [address] [address] PCP - General Family Practice 04/09/18 documented as of this encounter
--- OUTSIDE RECORDS SUMMARY | 2025-09-07 19:24 | XMS_ITS | Encounter Summary ---
Author Organization [facility] Address [address] [place] [address] Care Team Providers Care Degreasing Solution Mixer Name Role Phone Jean Gibbons MD Primary Care Provider [phone] Encounter Details Date Type Department Care Team (Late st Contact Info) Description 03/16/2020 Ancillary Orders [facility] [address] [facility] [address] [place] [address] Jean Gibbons MD [address] [place] [address] Abnormal mammogram Social History Tobacco Use Types Packs/Day Years Used Date Smoking Tobacco: Former Cigarettes Q uit: 08/12/1990 Smokeless Tobacco: Never Comments:quit in the Alcohol Use Standard Drinks/Week Comments No 0 (1 standard drink = 0.6 oz pur e alcohol) Comments No Sex and Gender Information Value Date Recorded Sex Assigned at Not on file Legal Sex Female 4:08 AM HEATING FIXTURE TENDER Gender Identity Not on file Sexual [...] R/O COVID-19 10/21/2020 10/21/2020 10/28/2021 9:17 PM HEATING FIXTURE TENDER Assessment Noted Time PHQ-9 Depression Total Score: 1 01/24/20 19 10:00 AM CDT documented as of this encounter Care Teams Degreasing Solution Mixer Relationship Specialty Start Date End Date Jean Gibbons MD [address] [phone] PCP - General Family Practice 04/09/18 documented as of this encounter
--- OUTSIDE RECORDS SUMMARY | 2025-09-07 19:24 | XMS_ITS | Encounter Summary ---
Author Organization [facility] Address [address] [place] [address] Care Team Providers Care Relay Associate Name Role Phone Jean Gibbons MD Primary Care Provider [phone] Encounter Details Date Type Department Care Team (Latest Contact Info) Description 01/11/2007 Outpatient Historical [facility] [place] [address] [address] Ben Winters DO NO ADDRESS ON FILE Other Affections of Shoulder Region, not Elsewhere Classified (Primary Dx) Social History Tobacco Use Types Packs/Day Years Used Date Smoking Tobacco: Never Assessed Comments Unknown Sex and Gender Information Value Date Recorded Sex Assigned at Not on file Legal Sex Female 4:08 AM BUTANE COMPRESSOR OPERATOR Gender Identity Not on file Sexual Orientation Not on file documented as of this encounter Plan of Treatment Not on file documented as of this encounter Visit Diagnoses Diagnosis Other affections of shoulder region, not elsewhere classified- Primary documented in this encounter Additional Health Concerns Infection Onset Date Last Indicated Resolved Time R/O COVID-19 10/21/2020 10/21/2020 10/28/2021 9:17 PM BUTANE COMPRESSOR OPERATOR documented as of this encounter Care Teams Relay Associate Relationship Specialty Start Date End Date Jean Gibbons MD [address] [address] PCP - General Family Practice 04/09/18 documented as of this encounter
--- OUTSIDE RECORDS SUMMARY | 2025-09-07 19:24 | XMS_ITS | Encounter Summary ---
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
--- NOTE | 2025-09-07 19:28 | W.ED.EXTPRO ---
HPI - Extremity Problem General: Chief complaint: Extremity Problem,Nontraumatic Stated complaint: sent possible blood clot in left leg Time Seen by Provider: 09/07/25 19:27 Source: patient Mode of arrival: ambulatory Limitations: no limitations History of Present Illness: Patient is an 80-year-old female presents to ED today with a complaint of swelling to her left lower leg. Patient states her left leg is significantly larger than her right leg. States she is not sure how long it has been like that. She does tell me that the swelling was way worse this morning . She has noticed that the lower leg will sometimes turn red but that this seems to come and go. She has not had any recent injury or trauma. She is ambulatory here. She is not complaining of shortness of breath or chest pain. Patient does take furosemide. She does carry a diagnosis of CHF. MD Complaint: extremity pain and extremity swelling Onset (ago): day(s) Location: left and lower extremity Radiation: none Relieving factors: nothing Exacerbating factors: nothing Associated symptoms: Reports no associated symptoms; Deny chest pain or fever(s) Related Data Home Medications ?Medication ?Instructions ?Recorded ?Confirmed fluticasone propionate 50 2 spray intranasal DAILY 08/24/20 09/01/25 mcg/actuation nasal spray,suspension (Flonase Allergy Relief) hydroxyzine HCl 25 mg tablet 25 mg PO TID PRN Anxiety 08/24/20 09/01/25 propylthiouracil 50 mg tablet 50 mg PO TID 08/24/20 09/01/25 tramadol 50 mg tablet 50 mg PO Q8H PRN Pain 08/24/20 09/01/25 multivitamin 1 tab PO DAILY 11/07/21 09/01/25 bupropion HCl 150 mg 24 hr tablet, 150 mg PO BID 04/30/24 09/01/25 extended release cranberry fruit 200 mg-dandelion 1 cap PO DAILY 04/04/25 09/01/25 50 mg-goldenseal 20 mg-herbs capsule (Urinary Cranberry Blend) ondansetron 4 mg disintegrating 4 mg PO Q8H PRN Nausea And Vomiting 04/04/25 09/01/25 tablet vitamin B complex 1 tab PO DAILY 04/04/25 09/01/25 aspirin 81 mg tablet 81 mg PO DAILY 07/14/25 09/01/25 Previous Rx's ?Medication ?Instructions ?Recorded custom inserts #1 ea 02/22/24 potassium chloride 8 mEq 8 meq PO DAILY #90 tabs 06/29/25 tablet,extended release (Klor-Con) amiodarone 200 mg tablet See Rx Instructions .Route 07/02/25 .COMPLEX #180 tabs amlodipine 10 mg tablet 10 mg PO DAILY #30 tabs 07/17/25 losartan 100 mg tablet 100 mg PO DAILY 30 days #30 tabs 07/19/25 furosemide 20 mg tablet (Lasix) 20 mg PO DAILY PRN sob #90 tabs 08/25/25 Allergies Allergy/AdvReac Type Severity Reaction Status Date / Time Alpha-Gal Allergy Unknown Verified 09/07/25 19:25 ([id number],3-Gala citalopram (From Celexa) Allergy NA Verified 09/07/25 19:25 clarithromycin Allergy NA Verified 09/07/25 19:25 clindamycin Allergy NA Verified 09/07/25 19:25 doxepin Allergy NA Verified 09/07/25 19:25 hydrocodone Allergy NA Verified 09/07/25 19:25 ibuprofen Allergy NA Verified 09/07/25 19:25 levofloxacin Allergy NA Verified 09/07/25 19:25 lisinopril Allergy NA Verified 09/07/25 19:25 naproxen (From Aleve) Allergy NA Verified 09/07/25 19:25 Penicillins Allergy NA Verified 09/07/25 19:25 pseudoephedrine Allergy NA Verified 09/07/25 19:25 red dye Allergy NA Verified 09/07/25 19:25 Sulfa (Sulfonamide Allergy NA Verified 09/07/25 19:25 Antibiotics) venlafaxine Allergy NA Verified 09/07/25 19:25 Review of Systems Const: Denies: fever(s), chills, body aches, fatigue or malaise Card: Denies: chest pain Resp: Denies: dyspnea Musc: Reports: extremity pain and extremity swelling; Denies: neck pain, back pain, joint pain, joint swelling, joint redness, joint warmth, joint stiffness, limited range of motion, muscle cramps or muscle weakness Neuro: Denies: numbness in extremities, weakness in extremities, sensory changes or difficulty walking PFSH ED PFSH: Medical History Recurrent UTI Anxiety Hypothyroidism Family hx of colon cancer Atrial fibrillation Heart failure with reduced ejection fraction Hyperlipidemia COPD (chronic obstructive pulmonary disease) HTN (hypertension) Surgical History Hx of hysterectomy (~1985) 1985 INOCENCIO, BSO performed by Dr. Gonzalez Due to bleeding and cervical polyps S/P appendectomy S/P sinus surgery S/P cataract surgery S/P tonsillectomy S/P bunionectomy S/P cholecystectomy S/P shoulder surgery Family History Mother , 82 Breast cancer dx age later in life Denies family history of Colon cancer Ovarian cancer Diabetes Heart disease Hypercholesteremia Hypertension Uterine cancer Thyroid disease Stroke Social History Smoking and tobacco/nicotine status: former use of tobacco/nicotine Physical Exam Const: COMMON NORMALS: no acute distress, average body habitus, patient oriented x3, no limitations, healthy appearing, alert and well nourished GENERAL APPEARANCE: cooperative Resp: COMMON NORMALS: normal respiratory effort and clear to auscultation bilaterally AUSCULTATION: clear to auscultation bilaterally Cardio: COMMON NORMALS: regular rate and regular rhythm RATE: regular rate RHYTHM: regular rhythm Extremity: COMMON NORMALS: full ROM, capillary refill normal and no joint enlargement GENERAL: Yes normal exam except as noted OTHER: bilateral LE edema; L LE is larger than the R-there is not any obvious overlying erythema/warmth/streaking present Neuro: COMMON NORMALS: patient oriented x3, moves all extremities, no focal motor deficits, no sensory deficits noted and gait normal SENSORIUM/ORIENTATION: Yes alert Course Vital Signs: Vital signs: Vital Signs Temperature 98.2 F 09/07/25 19:22 Pulse Rate 81 09/07/25 19:31 Respiratory Rate 18 09/07/25 19:22 Blood Pressure 140/117 09/07/25 19:31 Pulse Oximetry 97 09/07/25 19:31 Oxygen Delivery Me thod Room Air 09/07/25 19:31 MDM - Extremity (Nontraumatic) Medical Decision Making US negative for DVT. She is not complaining of chest pain, shortness of breath, difficulty breathing, orthopnea, PND, or weight gain to suggest CHF exacerbation. Clinically the extremity does not appear cellulitic. Discussed following up with primary care. She can continue her Lasix. Discussed limb elevation and compression stockings. Return precautions discussed. Medical Records I reviewed the patient's medical records. Lab Data I reviewed the patient's lab results. 09/07/25 20:07 09/07/25 20:07 Radiology Impressions Venous Duplex 09/07/25 19:20 IMPRESSION: No evidence of deep vein thrombosis. Laboratory Results WBC 12.65 10^3/uL (3.29-11.43) H 09/07/25 20:07 RBC 3.21 10^6/uL (3.85-5.65) L 09/07/25 20:07 Hgb 11.30 g/dL (11.27-16.99) 09/07/25 20:07 Hct 33.9 % (36-47) L 09/07/25 20:07 MCV 105.6 fl (85-98) H 09/07/25 20:07 MCH 35.2 pg (27-33) H 09/07/25 20:07 MCHC 33.3 g/dL (30-55) 09/07/25 20:07 RDW 18.0 % (12.1-15.1) H 09/07/25 20:07 Plt Count 403 10^3/cmm (157-399) H 09/07/25 20:07 MPV 10.3 fL (7.4-10.4) 09/07/25 20:07 Neut % (Auto) 64.3 % 09/07/25 20:07 Lymph % (Auto) 23.5 % 09/07/25 20:07 Mckinley % (Auto) 8.7 % 09/07/25 20:07 Eos % (Auto) 2.4 % 09/07/25 20:07 Baso % (Auto) 0.5 % 09/07/25 20:07 Neut # (Auto) 8.15 10^3/uL (1.8-7.7) H 09/07/25 20:07 Lymph # (Auto) 3.0 10^3/uL (0.8-4.8) 09/07/25 20:07 Mckinley # (Auto) 1.1 10^3/uL (0.2-0.9) H 09/07/25 20:07 Eos # (Auto) 0.3 10^3/uL (0.0-0.8) 09/07/25 20:07 Baso # (Auto) 0.1 10^3/uL (0.0-0.1) 09/07/25 20:07 Nucleated RBC % (auto) 0.3 % 09/07/25 20:07 Nucleated RBCs # 0.0 /100WBC 09/07/25 20:07 Sodium 136 mmol/L (136-145) 09/07/25 20:07 Potassium 4.1 mmol/L (3.5-5.1) 09/07/25 20:07 Chloride 99 mmol/L (98-107) 09/07/25 20:07 Carbon Dioxide 26 mmol/L (22-29) 09/07/25 20:07 Anion Gap 15.1 (5-19) 09/07/25 20:07 BUN 16 mg/dL (8-23) 09/07/25 20:07 Creatinine 0.9 mg/dL (0.5-0.9) 09/07/25 20:07 GFR Calculation Not Reportable 09/07/25 20:07 Glucose 92 mg/dL (65-115) 09/07/25 20:07 Calculated Osmolality 283 mOsm/kg (285-295) L 09/07/25 20:07 Calcium 9.1 mg/dL (8.5-10.5) 09/07/25 20:07 Total Bilirubin 0.8 mg/dL (0.15-1.2) 09/07/25 20:07 AST 11 U/L (0-32) 09/07/25 20:07 ALT 8 U/L (0-33) 09/07/25 20:07 Alkaline Phosphatase 103 U/L (35-105) 09/07/25 20:07 Total Protein 6.2 g/dL (6.6-8.7) L 09/07/25 20:07 Albumin 4.1 g/dL (3.5-5.2) 09/07/25 20:07 Globulin 2.1 g/dL (1.3-4.6) 09/07/25 20:07 All radiology interpretation(s) finalized by discharge Discharge Plan Discharge Patient Disposition: Home Clinical Impression: Left leg swelling Condition: Stable Prescriptions: No Action multivitamin Tablet 1 tab PO DAILY propylthiouracil 50 mg tablet 50 mg PO TID tramadol 50 mg tablet 50 mg PO Q8H PRN (Reason: Pain) hydroxyzine HCl 25 mg tablet 25 mg PO TID PRN (Reason: Anxiety) fluticasone propionate [Flonase Allergy Relief] 50 mcg/actuation spray,suspension 2 spray INTRANASAL DAILY Rx Instructions: administer into each nostril bupropion HCl 150 mg tablet extended release 24 hr 150 mg PO BID (DME) custom inserts See Rx Instructions .Route .MEDSUPPLY Qty: 1 0RF Rx Instructions: As directed aspirin 81 mg tablet 81 mg PO DAILY potassium chloride [Klor-Con 8] 8 mEq tablet extended release 8 meq PO DAILY Qty: 90 3RF amiodarone 200 mg tablet See Rx Instructions .ROUTE .COMPLEX Qty: 180 3RF Dose Instruction: Take 1 tablet by mouth once daily Rx Instructions: Take 1 tablet by mouth once daily furosemide [Lasix] 20 mg tablet 20 mg PO DAILY PRN (Reason: sob) Qty: 90 0RF amlodipine 10 mg Tablet 10 mg PO DAILY Qty: 30 0RF losartan 100 mg tablet 100 mg PO DAILY 30 Days Qty: 30 0RF vitamin B complex Tablet 1 tab PO DAILY ondansetron 4 mg tablet,disintegrating 4 mg PO Q8H PRN (Reason: Nausea And Vomiting) Urinary Cranberry Blend 200-50-20 mg Capsule 1 cap PO DAILY Discharge Orders: Discharge ED (Routine); Ordered 09/07/25 Ordered By: Maite Dos Santos Referrals: Jean Gibbons [Primary Care Provider, Family Practice] Patient Instructions: Patient Portal & Leobardo Instructions Activity Restrictions/Additional Instructions: As we discussed, ultrasound imaging of your left leg was negative for DVT (blood clot). We discussed continuing your Lasix as directed. You need to follow-up with primary care. We discussed elevating your extremities to help with edema/swelling. You need to return to the emergency department for onset of worsening leg swelling, pain, shortness of breath, difficulty breathing, or any other concerns you may have. Print Language: Cymro Coding Level of Care Code ED Hotel Baggage Handler for Alyson Dee
[2025-09-07 19:31] VITALS: BP 140/117; PULSE 81; O2SAT 97
[2025-09-07 20:14] LABS: Hematocrit 33.9 % (36-47); Hemoglobin 11.30 g/dL (11.27-16.99); Mean Corpuscular HGB Conc 33.3 g/dL (30-55); Mean Corpuscular Hemoglobin 35.2 pg (27-33); Mean Corpuscular Volume 105.6 fl (85-98); Nucleated Red Blood Cells % 0.3 %; Platelet Count 403 10^3/cmm (157-399); Red Blood Count 3.21 10^6/uL (3.85-5.65); White Blood Count 12.65 10^3/uL (3.29-11.43)
[2025-09-07 20:30] LABS: Alanine Aminotransferase 8 U/L (0-33); Albumin Level 4.1 g/dL (3.5-5.2); Alkaline Phosphatase 103 U/L (35-105); Anion Gap 15.1 (5-19); Aspartate Amino Transferase 11 U/L (0-32); Blood Urea Nitrogen 16 mg/dL (8-23); Calcium 9.1 mg/dL (8.5-10.5); Carbon Dioxide 26 mmol/L (22-29); Chloride 99 mmol/L (98-107); Creatinine Clr Calc Pharmacy 48.4229; Globulin 2.1 g/dL (1.3-4.6); Glucose 92 mg/dL (65-115); Osmolality Calculated 283 mOsm/kg (285-295); Potassium 4.1 mmol/L (3.5-5.1); Sodium 136 mmol/L (136-145); Total Protein 6.2 g/dL (6.6-8.7)
== END 2025-09-07 20:57 | disposition home or self-care (01) ==
PROVIDERS: Emergency Provider Physician Assistant; PCP Family Medicine
DX: M79.605 Pain in left leg (principal); M79.89 Other specified soft tissue disorders; Z79.82 Long term (current) use of aspirin
CPT/HCPCS: 36415; 80053; 85025; 93971; 99284

== ENCOUNTER 2025-09-22 09:14 | Oncology outpatient (recurring) (ONCR) | payer MEDICARE, OTHER, SELFPAY ==
[2025-09-22 09:54] LABS: Hematocrit 32.2 % (36-47); Hemoglobin 10.80 g/dL (11.27-16.99); Mean Corpuscular HGB Conc 33.5 g/dL (30-55); Mean Corpuscular Hemoglobin 35.0 pg (27-33); Mean Corpuscular Volume 104.2 fl (85-98); Nucleated Red Blood Cells % 0.7 %; Platelet Count 438 10^3/cmm (157-399); Red Blood Count 3.09 10^6/uL (3.85-5.65); White Blood Count 11.39 10^3/uL (3.29-11.43)
[2025-09-22 10:14] LABS: Alanine Aminotransferase 9 U/L (0-33); Albumin Level 4.2 g/dL (3.5-5.2); Alkaline Phosphatase 101 U/L (35-105); Anion Gap 13.0 (5-19); Aspartate Amino Transferase 14 U/L (0-32); Blood Urea Nitrogen 17 mg/dL (8-23); Calcium 9.1 mg/dL (8.5-10.5); Carbon Dioxide 26 mmol/L (22-29); Chloride 99 mmol/L (98-107); Ferritin 289 ng/mL (15-150); Globulin 2.3 g/dL (1.3-4.6); Glucose 90 mg/dL (65-115); Iron 54 ug/dL (37-145); Osmolality Calculated 279 mOsm/kg (285-295); Potassium 4.0 mmol/L (3.5-5.1); Sodium 134 mmol/L (136-145); Total Iron Binding Capacity 247 mcg/dl; Total Protein 6.5 g/dL (6.6-8.7); Unsaturated Iron Binding 193 ug/dL (112-347)
[2025-09-22 10:27] LABS: Vitamin B12 612 pg/mL (232-1245)
[2025-09-22] MEDS: luspatercept-aamt 75 mg 66 MG SUBCUT (11:37)
== END 2025-09-22 23:59 | disposition home or self-care (01) ==
PROVIDERS: Internal Medicine Medical Oncology; PCP Family Medicine; Visit Provider Nurse Practitioner
DX: D46.Z Other myelodysplastic syndromes (principal); R03.0 Elevated blood-pressure reading, without diagnosis of hypertension; Z15.89 Genetic susceptibility to other disease; Z15.09 Genetic susceptibility to other malignant neoplasm; Z87.891 Personal history of nicotine dependence; Z79.899 Other long term (current) drug therapy; I50.20 Unspecified systolic (congestive) heart failure
CPT/HCPCS: 36415; 80053; 82607; 82728; 82746; 83540; 83550; 85025; 96372; 99214; J0896

== ENCOUNTER 2025-10-01 06:24 | Inpatient (IN) | payer MEDICARE, OTHER, SELFPAY ==
--- OUTSIDE RECORDS SUMMARY | 2025-09-25 10:20 | XMS_ITS | Encounter Summary ---
Author Organization [facility] Address [address] [place] [address] Care Team Providers Care Soap Drier Operator Name Role Phone Jean Gibbons MD Primary Care Provider [phone] [phone] Reason for Visit * Reason Comments Chronic Conditions Coordination 3 month Elevated Blood Pressure Pt resumed her d iuretic and BP is improving but she is having some incontinence with it Encounter Details Date Type Department Care Team (Late st Contact Info) Description 09/25/2025 10:20 AM LAWN MOWER MECHANIC Video Visit [facility] [place] [address] [address] Jean Gibbons MD [address] [address] Primary hypertension (Primary Dx) Social History Tobacco Use Types Packs/Day Years Used Date Smoking Tobacco: Former Cigarettes 0 Q uit: 08/12/1990 Smokeless Tobacco: Never Comments:Quit [...] on file Legal Sex Female 4:19 AM LAWN MOWER MECHANIC Gender Identity Not on file Sexual Orientation Not on file documented as of this encounter Last Filed Vital Signs Vital Sign Reading Time Taken Comments Blood Pressure 163/85 09/25/2025 10:26 AM LAWN MOWER MECHANIC Pulse - - Temperature - - Respiratory Rate - - Oxygen Saturation - - Inhaled Oxygen Concentration - - Weight 66.2 kg (146 lb) 09/25/2025 10:26 AM LAWN MOWER MECHANIC Height 167.6 cm (5' 6 ) 09/25/2025 10:26 AM LAWN MOWER MECHANIC Body Mass Index 23.57 09/25/2025 10:26 AM LAWN MOWER MECHANIC documented in this encounter Progress Notes * Jean Gibbons MD - 09/25/2025 10:51 AM CST [facility] 09/25/2025 Subjective: Cris New is a 80 y.o. female who comes today for evaluation of Chronic Conditions Coordination (3 month) and Elevated Blood Pressure (Pt resumed her diuretic and BP is improving but she is having some incontinence with it) . History of Present Illness The patient presents for evaluation of hypertension. She has been monitoring her blood pressure closely, with a reading of 182/104 at 6:00 PM the previous night, which she considers an improvement. A few days prior, her blood pressure was recorded as 212/91. She experienced a stroke in the past and has been making efforts to manage her health more effectively. Her current blood pressure reading is 163/85. She reports adherence to her prescribed medications, including losartan and amlodipine, with her daughter assisting in managing her medication regimen. She had discontinued her diuretic medication for a period, which she believes may have contributed to her elevated blood pressure. She resumed the diuretic on Sunday, but experienced discomfort and high blood pressure on that day and the following day. Her daughter has been encouraging her to take the diuretic consistently. On Sunday, she experienced excessive urination after taking the diuretic. She has not previously taken clonidine. Her heart rate was 78 when her blood pressure was 212/91. She has been monitoring her blood pressure closely and reports that it was elevated for only 2 days. She attributes her elevated blood pressure to family stress and has been attempting to limither social interactions. She is seeking assistance for daily tasks such as cleaning and organizing her home. 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 Her daughter provides assistance when possible, but is currently dealing with back issues. She has not driven a vehicle since her illness due to concerns about her judgment and safety. She is farsighted and has never had any trouble reading or watching TV, but now she scoots forward and it still looks blurry. She was advised to see an eye doctor, but she cannot do it now due to financial constraints. She is doing okay otherwise. She is a little scared getting in the shower because she has fallen somany times and hit her head multiple times. She is afraid to fall again. She does not need a showerchair as she already has one. She does not shower unless her daughter is there to help her. She usually gets her influenza vaccine on 08/12/2025 and inquires if she can get it now. Review of Systems Constitutional: Negative for fever. Respiratory: Negative for shortness of breath. Cardiovascular: Negative for chest pain. Gastrointestinal: Negative for abdominal pain. Skin: Negative for rash. Neurological: Negative for weakness. Objective: Vitals: 09/25/25 1026 BP: (!) 163/85 Physical Exam Neurological: Mental Status: She is oriented to person, place, and time. Psychiatric: Mood and Affect: Mood normal. Past medical history, surgical history and social history reviewed. Past Medical History: Diagnosis Date A-fib ([facility]/HCC) Anxiety Arthropathy, unspecified, site unspecified Congestive heart failure (CMS/HCC) Depression Dysrhythmia, cardiac HTN (hypertension) Hypothyroidism IBS (irritable bowel syndrome) Osteoarthritis Post-operative nausea and vomiting Seborrheic keratosis Temporomandibular joint disorders, unspecified Unspecified adverse effect of anesthesia Unspecified disorder of lipoid metabolism Procedures Assessment/Plan: ICD-10-CM ICD-9-CM 1. Primary hypertension I10 401.9 cloNIDine HCL (CATAPRES) 0.1 mg tablet Assessment & Plan 1. Hypertension: - Blood pressure readings have been elevated, with a recent reading of 212/91 mmHg. - Current medications include losartan and amlodipine. Inconsistent use of diuretic may have contributed to elevated blood pressure. - Prescription for clonidine provided, to be used as needed when systolic blood pressure exceeds 180 mmHg or diastolic blood pressure surpasses 100 mmHg. - Advised to take diuretic consistently. 2. Farsightedness: - Reports difficulty reading and watching TV due to blurriness, despite being farsighted. - Advised to see an eye doctor but currently unable to do so due to financial constraints. 3. Fall risk: - History of falls and fear of falling again, especially in the shower. - Has a shower chair and receives assistance from her daughter when needed. 4. Encounter for immunization: - Inquires about getting influenza vaccine, usually received on 08/12/2025. - Advised to visit local pharmacy for influenza vaccine or schedule a nurse visit for the same. Patient's identity confirmed yes Patient gave verbal consent to have these services billed to their insurance and expressed understanding that co-insurance and deductible may apply: yes Patient was located At home This encounter was completed via two-way synchronous audio only communication. Video technology available to provider, but patient not capable of, or doesn't consent to, use of video. Time spent in discussion with patient: 11 minutes. Jean Gibbons MD The author of this note, patient (or authorized medical sales representative), and all other persons present consent to the audio recording of this visit for charting documentation purposes. This note was automatically generated by a Generative AI technology (Pagos[employer]), reviewed, edited, and finalized by Jean Gibbons MD. MOWER MECHANIC documented in this encounter Plan of Treatment Not on file documented as of this encounter Goals Goal Patient Goal Type Associated Problems Recent Progress Patient-Stated? Author Heart Failure Goal Care Plan Heart Failure Problem No Wendy, [place] Heart Failure Goal Care Plan Heart Failure Problem No Wendy, [place] Heart Failure Goal Care Plan Heart Failure Problem No Grandstaff, Judy, ROAD FREIGHT FIRER Heart Failure Goal Care Plan Heart Failure Problem No [place], Judy, RO[employer] FREIGHT FIRER Heart Failure Goal Care Plan Heart Failure Problem No [place], Judy, RO[employer] FREIGHT FIRER Heart Failure Goal Care Plan Heart Failure Problem No [place], Judy, RO[employer] FREIGHT FIRER Heart Failure Goal Care Plan Heart Failure Problem No Grandstaff, Judy, RO[employer] Heart Failure Goal Care Plan Heart Failure Problem No Grandstaff, Judy, RO[employer]ER Heart Failure Goal Care Plan Heart Failure Problem No Grandstaff, Judy, RO[employer] Heart Failure Goal Care Plan Heart Failure Problem No Grandstaff, Judy, RO[employer]ER Heart Failure Goal Care Plan Heart Failure Problem No Grandstaff, Judy, RO[employer] Heart Failure Goal Care Plan Heart Failure Problem No Grandstaff, Judy, RO[employer]ER Heart Failure Goal Care Plan Heart Failure Problem No Grandstaff, Judy, RO[employer] Heart Failure Goal Care Plan Heart Failure Problem No Grandstaff, Judy, RO[employer]ER Heart Failure Goal Care Plan Heart Failure Problem No Grandstaff, Judy, RO[employer] FRE[employer]ER Heart Failure Goal Care Plan Heart Failure Problem No Mele, Peyton M, ROAD FREIGHT FIRER Heart Failure Goal Care Plan Heart Failure Problem No Cervantes, Azalia K, ROAD FREIGHT FIRER Heart Failure Goal Care Plan Heart Failure Problem No Cervantes, Azalia K, RO[employer] FRE[employer] FIRER Heart Failure Goal Care Plan Heart Failure Problem No Mele, Peyton M, RO[employer] FREIGHT FIRER Heart Failure Goal Care Plan Heart Failure Problem No Mele, Peyton M, ROAD FREIGHT FIRER Heart Failure Goal Care Plan Heart Failure Problem No Mele, Peyton M, ROAD FREIGHT FIRER Heart Failure Goal Care Plan Heart Failure Problem No Mele, Peyton M, ROAD FREIGHT FIRER Heart Failure Goal Care Plan Heart Failure Problem No Mele, Peyton M, ROAD FREIGHT FIRER Heart Failure Goal Care Plan Heart Failure Problem No Mele, Peyton M, ROAD FREIGHT FIRER Heart Failure Goal Care Plan Heart Failure Problem No Mele, Peyton M, ROAD FREIGHT FIRER Heart Failure Goal Care Plan Heart Failure Problem No Mele, Peyton M, ROAD FREIGHT FIRER Heart Failure Goal Care Plan Heart Failure Problem No Mele, Peyton M, ROAD FREIGHT FIRER Heart Failure Goal Care Plan Heart Failure Problem No Mele, Peyton M, RO[employer] FREIGHT FIRER Heart Failure Goal Care Plan Heart Failure Problem No Mele, Peyton M, RO[employer] FREIGHT FIRER Heart Failure Goal Care Plan Heart Failure Problem No Mele, Peyton M, ROAD FREIGHT FIRER Heart Failure Goal Care Plan Heart Failure Problem No Mele, Peyton M, ROAD FREIGHT FIRER Heart Failure Goal Care Plan Heart Failure Problem No Mele, Peyton M, ROAD FREIGHT FIRER Heart Failure Goal Care Plan Heart Failure Problem No Mele, Peyton M, ROAD FREIGHT FIRER Heart Failure Goal Care Plan Heart Failure Problem No Mele, Peyton M, ROAD FREIGHT FIRER Heart Failure Goal Care Plan Heart Failure [...] Heart Failure Problem No Mele, Peyton M, ROAD FREIGHT FIRER Heart Failure Goal Care Plan Heart Failure Problem No Mele, Peyton M, ROAD FREIGHT FIRER Heart Failure Goal Care Plan Heart Failure Problem No Rachel Ceja RN documented as of this encounter Visit Diagnoses Diagnosis Primary hypertension- Primary Unspecified essential hypertension documented in this encounter [...] documented as of this encounter Care Teams Soap Drier Operator Relationship Specialty Start Date End Date Jean Gibbons MD [address] [phone] PCP - General Family Practice 04/09/18 documented as of this encounter
[2025-10-01] VITALS (32 sets, daily range): BP systolic 98–203; BP diastolic 51–136; PULSE 60–86; RESP 11–25; TEMP 36.5–36.8; O2SAT 87–100; BMI 24.2
--- NOTE | 2025-10-01 06:30 | XR_ITS ---
WS: [id number] XR shoulder RT min 2V* [id number] REASON FOR EXAM: pain FINDINGS: Examination unchanged compared to 07/17/2025 No acute fracture. Severe osteoarthritis in the acromioclavicular and glenohumeral joints. Decreased humeral acromial interval with erosion of the undersurface of the acromion indicating complete tear of the rotator cuff tendon. XR/XR shoulder RT min 2V* [id number] IMPRESSION: Severe right shoulder arthropathy as above.
--- NOTE | 2025-10-01 06:31 | ECG_ITS ---
[facility]25[facility] Pat Name: Cris New Department: Room: Gender: Female Vice President Pharmacy: : [id number] Requested By: Tapan Thomas Order Number: [id number] Char MD: Clover Mcguire M.D. Measurements Intervals [place] Rate: 66 P: 57 CA: 226 QRS: -36 QRSD: 114 T: 79 QT: 431 QTc: 454 Interpretive Statements SINUS RHYTHM WITH FIRST DEGREE AV BLOCK LEFT AXIS DEVIATION [QRS AXIS < -30] ANTEROSEPTAL MYOCARDIAL INFARCTION , OF INDETERMINATE AGE [40+ ms Q WAVE IN V1-V4] Compared to ECG 07/16/2025 15:33:38 Left-axis deviation now present T-wave abnormality no longer present Possible ischemia no longer present Myocardial infarct finding still present Electronically Signed On 10-03-2025 14:16:47 DANCING MASTER by Clover Mcguire M.D. [email or web address]
--- OUTSIDE RECORDS SUMMARY | 2025-10-01 06:32 | XMS_ITS | Encounter Summary ---
Author Organization [facility] Address [address] [place] [address] Care Team Providers Care Packing Shed Supervisor Name Role Phone Jean Gibbons MD Primary Care Provider [phone] Encounter Details Date Type Department Care Team (Late st Contact Info) Description 04/09/2018 Ancillary Orders [facility] [place] 104 [facility] [address] [place] [address] Amberly Lima, JACOB [address] [place] [phone] Breast tenderness in female Social History Tobacco Use Types Packs/Day Years Used Date Smoking Tobacco: Former Cigarettes 0 Q uit: 08/12/1990 Smokeless Tobacco: Never Comments:quit in the Alcohol Use Standard Drinks/Week Comments No 0 (1 standard drink = 0.6 oz pur e alcohol) Comments No Sex and Gender Information Value Date Recorded Sex Assigned at Not on file Legal Sex Female 4:08 AM SCHOOL OCCUPATIONAL THERAPIST Gender Identity Not on file Sexual Orientation [...] R/O COVID-19 10/21/2020 10/21/2020 10/28/2021 9:17 PM SCHOOL OCCUPATIONAL THERAPIST Assessment Noted Time PHQ-9 Depression Total Score: 1 01/01/20 18 11:00 AM SCHOOL OCCUPATIONAL THERAPIST documented as of this encounter Care Teams Packing Shed Supervisor Relationship Specialty Start Date End Date Jean Gibbons MD [address] [address] PCP - General Family Practice 04/09/18 documented as of this encounter
--- OUTSIDE RECORDS SUMMARY | 2025-10-01 06:32 | XMS_ITS | Encounter Summary ---
Author Organization [facility] Address [address] [place] [address] Care Team Providers Care Machine Plaster Mixer Name Role Phone Jean Gibbons MD Primary Care Provider [phone] Encounter Details Date Type Department Care Team (Late st Contact Info) Description 10/24/2007 Outpatient Historical [facility] [place] [address] [address] Deanna Parada NP NO ADDRESS ON FILE Social History Tobacco Use Types Packs/Day Years Used Date Smoking Tobacco: Never Assessed Comments Unknown Sex and Gender Information Value Date Recorded Sex Assigned at Not on file Legal Sex Female 4:08 AM PRESS TENDER Gender Identity Not on file Sexual Orientation Not on file documented as of this encounter Plan of Treatment Not on file documented as of this encounter Visit Diagnoses Not on filedocumented in this encounter Additional Health Concerns Infection Onset Date Last Indicated Resolved Time R/O COVID-19 10/21/2020 10/21/2020 10/28/2021 9:17 PM PRESS TENDER documented as of this encounter Care Teams Machine Plaster Mixer Relationship Specialty Start Date End Date Jean Gibbons MD [address] [facility] 60 [place] [address] PCP - General Family Practice 04/09/18 documented as of this encounter
--- OUTSIDE RECORDS SUMMARY | 2025-10-01 06:32 | XMS_ITS | Encounter Summary ---
Author Organization [facility] Address [address] [place] [address] Care Team Providers Care Field Crop Farmer Name Role Phone Jean Gibbons MD Primary Care Provider [phone] Encounter Details Date Type Department Care Team (Late st Contact Info) Description 04/15/2008 Outpatient Historical [facility] Hema Hong MD [address] [place] [address] Social History Tobacco Use Types Packs/Day Years Used Date Smoking Tobacco: Never Assessed Comments No Sex and Gender Information Value Date Recorded Sex Assigned at Not on file Legal Sex Female 4:08 AM DIRECTOR CONSUMER Gender Identity Not on file Sexual Orientation Not on file documented as of this encounter Plan of Treatment Not on file documented as of this encounter Visit Diagnoses Not on filedocumented in this encounter Additional Health Concerns Infection Onset Date Last Indicated Resolved Time R/O COVID-19 10/21/2020 10/21/2020 10/28/2021 9:17 PM DIRECTOR CONSUMER documented as of this encounter Care Teams Field Crop Farmer Relationship Specialty Start Date End Date Jean Gibbons MD [address] [place] [phone] PCP - General Family Practice 04/09/18 documented as of this encounter
--- OUTSIDE RECORDS SUMMARY | 2025-10-01 06:32 | XMS_ITS | Encounter Summary ---
Author Organization [facility] Address [address] [place] [address] Care Team Providers Care Interactive Media Marketing Specialist Name Role Phone Jean Gibbons MD Primary Care Provider [phone] Encounter Details Date Type Department Care Team [...] on file Legal Sex Female 4:08 AM SLOTTER OPERATOR Gender Identity Not on file Sexual [...] LIST <<<<<<<< TRIAGE NOTE >>>>>>>> Triage Note: Domestic Violence Counselor Nat Arnold added this note on Jul [...] R/O COVID-19 10/21/2020 10/21/2020 10/28/2021 9:17 PM SLOTTER OPERATOR documented as of this encounter Care Teams Interactive Media Marketing Specialist Relationship Specialty Start Date End Date Jean Gibbons MD [address] [facility] [address] [place] [address] PCP - General Family Practice 04/09/18 documented as of this encounter
--- OUTSIDE RECORDS SUMMARY | 2025-10-01 06:32 | XMS_ITS ---
Author Organization [facility] Address [address] [facility] [address] [place] [address] Care Team Providers Care Lap Polisher Name Role Phone Jean Gibbons MD Primary Care Provider +1 [phone] Active Problems Problem Noted Date Diagnosed Date [...] spine with radiculopathy, cerv ical region 12/26/2018 terminal press operator prescription opiate use 07/02/2018 Spinal stenosis of [...]
--- OUTSIDE RECORDS SUMMARY | 2025-10-01 06:32 | XMS_ITS | Encounter Summary ---
Author Organization [facility] Address [address] [place] [address] Care Team Providers Care Manager Nuclear Name Role Phone Jean Gibbons MD Primary Care Provider [phone] [phone] Encounter Details Date Type Department Care Team (Late st Contact Info) Description 11/18/2007 Outpatient Historical [facility] Medicine [place] [address] [address] Deanna Parada NP NO ADDRESS ON FILE Social History Tobacco Use Types Packs/Day Years Used Date Smoking Tobacco: Never Assessed Comments Unknown Sex and Gender Information Value Date Recorded Sex Assigned at Not on file Legal Sex Female 4:08 AM BUSINESS LIAISON MANAGER Gender Identity Not on file Sexual Orientation Not on file documented as of this encounter Plan of Treatment Not on file documented as of this encounter Visit Diagnoses Not on filedocumented in this encounter Additional Health Concerns Infection Onset Date Last Indicated Resolved Time R/O COVID-19 10/21/2020 10/21/2020 10/28/2021 9:17 PM BUSINESS LIAISON MANAGER documented as of this encounter Care Teams Manager Nuclear Relationship Specialty Start Date End Date Jean Gibbons MD [address] [facility] [address] [place] [address] PCP - General Family Practice 04/09/18 documented as of this encounter
--- OUTSIDE RECORDS SUMMARY | 2025-10-01 06:32 | XMS_ITS | Encounter Summary ---
Author Organization [facility] Address [address] [place] [address] Care Team Providers Care Data Analyst Etl Developer Name Role Phone Jean Gibbons MD Primary Care Provider [phone] [phone] Encounter Details Date Type Department Care Team (Latest Contact Info) Description 05/16/2007 Outpatient Historical [facility] Medicine [place] [address] [address] Deanna Parada NP NO ADDRESS ON FILE Acute Sinusitis, Unspecified (Primary Dx); Dysfunct Eustachian Tube; Other and Unspecified Hyperlipidemia Social History Tobacco Use Types Packs/Day Years Used Date Smoking Tobacco: Never Assessed Comments Unknown Sex and Gender Information Value Date Recorded Sex Assigned at Not on file Legal Sex Female 4:08 AM GENERAL SCRAP WORKER Gender Identity Not on file Sexual [...] R/O COVID-19 10/21/2020 10/21/2020 10/28/2021 9:17 PM GENERAL SCRAP WORKER documented as of this encounter Care Teams Data Analyst Etl Developer Relationship Specialty Start Date End Date Jean Gibbons MD [address] [address] PCP - General Family Practice 04/09/18 documented as of this encounter
--- OUTSIDE RECORDS SUMMARY | 2025-10-01 06:32 | XMS_ITS | Encounter Summary ---
Author Organization [facility] Address [address] [place] [address] Care Team Providers Care Extended Day Teacher Name Role Phone Jean Gibbons MD Primary Care Provider [phone] Encounter Details Date Type Department Care Team (Latest Contact Info) Description 06/07/2007 Outpatient Historical [facility] Medicine [place] [address] [address] Deanna Parada NP NO ADDRESS ON FILE Other Malaise and Fatigue (Primary Dx); Anxiety State, Unspecified; Abdominal Pain, Epigastric; Nonspecific Abnormal Electrocardiogram (ECG) (EKG) Social History Tobacco Use Types Packs/Day Years Used Date Smoking Tobacco: Never Assessed Comments Unknown Sex and Gender Information Value Date Recorded Sex Assigned at Not on file Legal Sex Female 4:08 AM LIBRARY CATALOGING TECHNICIAN Gender Identity Not on file Sexual [...] R/O COVID-19 10/21/2020 10/21/2020 10/28/2021 9:17 PM LIBRARY CATALOGING TECHNICIAN documented as of this encounter Care Teams Extended Day Teacher Relationship Specialty Start Date End Date Jean Gibbons MD [address] [phone] PCP - General Family Practice 04/09/18 documented as of this encounter
--- OUTSIDE RECORDS SUMMARY | 2025-10-01 06:32 | XMS_ITS | Clinical Summary ---
Author Organization [facility] Address [address] [place] [address] Care Team Providers Care Dictaphone Typist Name Role Phone Jean Gibbons MD Primary Care Provider +1 [phone] Allergies Active Allergy Reactions Criticality Noted Date [...] 0 Active fluticasone propionate (FLONASE) 50 mcg/spray [place], Suspension nasal inhaler SHAKE LIQUID AND USE [...] spine with radiculopathy, cerv ical region 12/26/2018 residential prescription opiate use 07/02/2018 Spinal stenosis of [...] 0 Q uit: 08/12/1990 Smokeless Tobacco: Never Tobacco [...] How often do you attend chur or orthodox services? Never 04/07/2020 Do you belong to any clubs o r organizations such as anabaptist groups, unions, fraternal or athletic groups, or [...] on file Legal Sex Female 4:08 AM PAMPHLET DISTRIBUTOR Gender Identity Not on file Sexual Orientation [...] Health Maintenance Due Date Last Done Comments DTAP/TDAP/TD VACCINES (1 - Tdap) 01/18/2006 01/18/20 06, 11/12/1997 ZOSTER VACCINE (2 of 3) 06/15/2014 04/20/2014 COLORECTAL SCREENING 09/11/2016 09/11/2011 RSV VACCINE (60+ or ) (1 - 1-dose 75+ series) 2020 Traditional Medicare (O) A nnual Wellness Visit 04/08/2021 04/07/2020, 01/18/2017 INFLUENZA VACCINE (#1) 2025 3, 08/31/2022, 08/12/2021, Additional history exists COVID-19 Vaccine (3 - 2024-2 6 season) 2025 02/10/2021, 01/13/2021 OSTEOPOROSIS SCREENING 10/30/2027 10/30/2022 PNEUMOCOCCAL VACCINE 50+ YEARS Completed 0 06/07/2015, 10/16/2012, 10/16/2012 Procedures Procedure Name Priority Date/Time Associated Diagnosis Comments ENDOSCOPY, COLON, SCREENING Routine 09/11/2011 from Last 3 Months or Most Recently Relevant to Health Maintenance Results * ENDOSCOPY, COLON, SCREENING (09/11/2011) Ester Bell APRN GI PROCEDURE OLGA RDZ Final Result from Last 3 Months or Most Recently Relevant to Health Maintenance Insurance [address] [place] [address] MEDICARE PART A AND B SP3H [facility] Advance Directives For more information, please contact: [phone] * Full Code (Latest Code Status on File) Date Activated Date Inactivated Comments 02/18/2015 12:52 PM 02/18/2015 5:48 PM * Full Code Date Activated Date Inactivated Comments 02/18/2015 11:12 AM 02/18/2015 12:52 PM * Full Code Date Activated Date Inactivated Comments 02/18/2015 10:15 AM 02/18/2015 11:12 AM * Full Code Date Activated Date Inactivated Comments 09/24/2013 9:28 AM 09/25/2013 2:01 AM Care Teams Dictaphone Typist Relationship Specialty Start Date End Date Jean Gibbons MD [address] [phone] PCP - General Family Practice 04/09/18
--- OUTSIDE RECORDS SUMMARY | 2025-10-01 06:32 | XMS_ITS | Encounter Summary ---
Author Organization [facility] Address [address] [place] [address] Care Team Providers Care Zipper Setter Chainstitch Name Role Phone Jean Gibbons MD Primary Care Provider [phone] [phone] Encounter Details Date Type Department Care Team (Latest Contact Info) Description 08/27/2007 Outpatient Historical [facility] [address] [address] Ben Winters DO NO ADDRESS ON FILE Vaccine for Influenza (Primary Dx) Social History Tobacco Use Types Packs/Day Years Used Date Smoking Tobacco: Never Assessed Comments Unknown Sex and Gender Information Value Date Recorded Sex Assigned at Not on file Legal Sex Female 4:08 AM SCOUT PROFESSIONAL SPORTS Gender Identity Not on file Sexual Orientation Not on file documented as of this encounter Plan of Treatment Not on file documented as of this encounter Visit Diagnoses Diagnosis Vaccine for influenza- Primary Need for prophylactic vaccination and inoculation against influenza documented in this encounter Additional Health Concerns Infection Onset Date Last Indicated Resolved Time R/O COVID-19 10/21/2020 10/21/2020 10/28/2021 9:17 PM SCOUT PROFESSIONAL SPORTS documented as of this encounter Care Teams Zipper Setter Chainstitch Relationship Specialty Start Date End Date Jean Gibbons MD [address] [address] PCP - General Family Practice 04/09/18 documented as of this encounter
--- OUTSIDE RECORDS SUMMARY | 2025-10-01 06:32 | XMS_ITS | Encounter Summary ---
Author Organization [facility] Address [address] [place] [address] Care Team Providers Care Wind Energy Mechanic Name Role Phone Jean Gibbons MD Primary Care Provider [phone] [phone] Encounter Details Date Type Department Care Team (Late st Contact Info) Description 09/20/2018 Ancillary Orders [facility] Pre-Registration [place] CALL TO MAKE APPOINTMENT ONLY [address] [place] [address] Jean Gibbons MD [address] [facility] [address] [place] [address] Abnormal mammogram Social History Tobacco [...] file Legal Sex Female 4:08 AM MEDICAL CLINIC MANAGER Gender Identity Not on file Sexual [...] COVID-19 10/21/2020 10/21/2020 10/28/2021 9:17 PM MEDICAL CLINIC MANAGER Assessment Noted Time PHQ-9 Depression Total Score: 1 01/01/20 18 11:00 AM MEDICAL CLINIC MANAGER documented as of this encounter Care Teams Wind Energy Mechanic Relationship Specialty Start Date End Date Jean Gibbons MD [address] [address] PCP - General Family Practice 04/09/18 documented as of this encounter
--- OUTSIDE RECORDS SUMMARY | 2025-10-01 06:32 | XMS_ITS | Encounter Summary ---
Author Organization [facility] Address [address] [place] [address] Care Team Providers Care Telephone Interceptor Operator Name Role Phone Jean Gibbons MD Primary Care Provider +1 [phone] Encounter Details Date Type Department Care Team (Late st Contact Info) Description 05/20/2018 Ancillary Orders [facility] [address] [facility] [address] [place] [address] Amberly Lima FNP [address] [place] [address] Breast tenderness in female Social [...] on file Legal Sex Female 4:08 AM CAMERA REPAIR TECHNICIAN Gender Identity Not on file [...] to be scanned to PACS. us Amberly Clarence FLIGHT ATTENDANT/INFLIGHT SUPERVISOR DIAGNOSTIC IMAGING ORDERABLES Fi nal Result * MAMMO PRIOR STUDY (05/03/2016 12:30 PM CDT) Narrative 05/20/2018 12:26 PM CDT This exam was auto finalized to allow images to be scanned to PACS. us Amberly Lima FLIGHT ATTENDANT/INFLIGHT SUPERVISOR DIAGNOSTIC IMAGING ORDERABLES Fi nal Result * MAMMO PRIOR STUDY (04/15/2015 12:30 PM CDT) Narrative 05/20/2018 12:26 PM CDT This exam was auto finalized to allow images to be scanned to PACS. us Amberly Lima FLIGHT ATTENDANT/INFLIGHT SUPERVISOR DIAGNOSTIC IMAGING ORDERABLES Fi nal Result * MAMMO PRIOR STUDY (04/03/2014 12:30 PM CDT) Narrative 05/20/2018 12:27 PM CDT This exam was auto finalized to allow images to be scanned to PACS. us Amberly Lima FLIGHT ATTENDANT/INFLIGHT SUPERVISOR DIAGNOSTIC IMAGING ORDERABLES Fi nal Result * MAMMO PRIOR STUDY (04/15/2013 12:55 PM CDT) Narrative 05/20/2018 12:53 PM CDT This exam was auto finalized to allow images to be scanned to PACS. us Amberly Lima FLIGHT ATTENDANT/INFLIGHT SUPERVISOR DIAGNOSTIC IMAGING ORDERABLES Fi nal Result * MAMMO PRIOR STUDY (04/15/2013 12:45 PM CDT) Narrative 05/20/2018 12:44 PM CDT This exam was auto finalized to allow images to be scanned to PACS. us Amberly Lima FLIGHT ATTENDANT/INFLIGHT SUPERVISOR DIAGNOSTIC IMAGING ORDERABLES Fi nal Result * MAMMO PRIOR STUDY (03/25/2013 12:50 PM CDT) Narrative 05/20/2018 12:47 PM CDT This exam was auto finalized to allow images to be scanned to PACS. us Amberly Lima FLIGHT ATTENDANT/INFLIGHT SUPERVISOR DIAGNOSTIC IMAGING ORDERABLES Fi nal Result * MAMMO PRIOR STUDY (02/05/2012 12:55 PM CDT) Narrative 05/20/2018 12:53 PM CDT This exam was auto finalized to allow images to be scanned to PACS. us Amberly Lima FLIGHT ATTENDANT/INFLIGHT SUPERVISOR DIAGNOSTIC IMAGING ORDERABLES Fi nal Result * MAMMO PRIOR STUDY (02/05/2012 12:50 PM CDT) Narrative 05/20/2018 12:46 PM CDT This exam was auto finalized to allow images to be scanned to PACS. us Gaming Clarence FLIGHT ATTENDANT/INFLIGHT SUPERVISOR DIAGNOSTIC IMAGING ORDERABLES Fi nal Result * MAMMO PRIOR STUDY (09/18/2011 12:55 PM CAMERA REPAIR TECHNICIAN) Narrative 05/20/2018 12:54 PM CDT This exam was auto finalized to allow images to be scanned to PACS. us Gaming Clarence FLIGHT ATTENDANT/INFLIGHT SUPERVISOR DIAGNOSTIC IMAGING ORDERABLES Fi nal Result * MAMMO PRIOR STUDY (06/13/2011 12:55 PM CDT) Narrative 05/20/2018 12:54 PM CDT This exam was auto finalized to allow images to be scanned to PACS. us Amberly Lima FLIGHT ATTENDANT/INFLIGHT SUPERVISOR DIAGNOSTIC IMAGING ORDERABLES Fi nal Result * MAMMO PRIOR STUDY (06/02/2011 12:45 PM CDT) Narrative 05/20/2018 12:44 PM CDT This exam was auto finalized to allow images to be scanned to PACS. us Gaming Clarence FLIGHT ATTENDANT/INFLIGHT SUPERVISOR DIAGNOSTIC IMAGING ORDERABLES Fi nal Result * MAMMO PRIOR STUDY (05/16/2011 12:50 PM CDT) Narrative 05/20/2018 12:47 PM CDT This exam was auto finalized to allow images to be scanned to PACS. us Mejiamartine Lima FLIGHT ATTENDANT/INFLIGHT SUPERVISOR DIAGNOSTIC IMAGING ORDERABLES Fi nal Result * MAMMO PRIOR STUDY (03/31/2010 12:45 PM CDT) Narrative 05/20/2018 12:45 PM CDT This exam was auto finalized to allow images to be scanned to PACS. us Amberly Lima FLIGHT ATTENDANT/INFLIGHT SUPERVISOR DIAGNOSTIC IMAGING ORDERABLES Fi nal Result * MAMMO PRIOR STUDY (03/04/2009 12:45 PM CDT) Narrative 05/20/2018 12:45 PM CDT This exam was auto finalized to allow images to be scanned to PACS. us Amberly Lima FLIGHT ATTENDANT/INFLIGHT SUPERVISOR DIAGNOSTIC IMAGING ORDERABLES Fi nal Result * MAMMO PRIOR STUDY (01/19/2009 1:00 PM CDT) Narrative 05/20/2018 12:57 PM CDT This exam was auto finalized to allow images to be scanned to PACS. us Amberly Lima FLIGHT ATTENDANT/INFLIGHT SUPERVISOR DIAGNOSTIC IMAGING ORDERABLES Fi nal Result * MAMMO PRIOR STUDY (01/19/2009 12:45 PM CDT) Narrative 05/20/2018 12:45 PM CDT This exam was auto finalized to allow images to be scanned to PACS. us Amberly Lima FLIGHT ATTENDANT/INFLIGHT SUPERVISOR DIAGNOSTIC IMAGING ORDERABLES Fi nal Result * MAMMO PRIOR STUDY (09/10/2008 1:00 PM CDT) Narrative 05/20/2018 12:57 PM CDT This exam was auto finalized to allow images to be scanned to PACS. us Amberly Lima FLIGHT ATTENDANT/INFLIGHT SUPERVISOR DIAGNOSTIC IMAGING ORDERABLES Fi nal Result * MAMMO PRIOR STUDY (09/10/2008 12:50 PM CDT) Narrative 05/20/2018 12:46 PM CDT This exam was auto finalized to allow images to be scanned to PACS. us Amberly Lima FLIGHT ATTENDANT/INFLIGHT SUPERVISOR DIAGNOSTIC IMAGING ORDERABLES Fi nal Result * MAMMO PRIOR STUDY (03/02/2008 1:00 PM CDT) Narrative 05/20/2018 12:58 PM CDT This exam was auto finalized to allow images to be scanned to PACS. Amberly Clarence [facility] DIAGNOSTIC IMAGING ORDERABLES Fi nal Result * MAMMO PRIOR STUDY (03/02/2008 12:50 PM CDT) Narrative 05/20/2018 12:46 PM CDT This exam was auto finalized to allow images to be scanned to PACS. Amberlymartine Lima [facility] DIAGNOSTIC IMAGING ORDERABLES Fi nal Result [...] R/O COVID-19 10/21/2020 10/21/2020 10/28/2021 9:17 PM CAMERA REPAIR TECHNICIAN Assessment Noted Time PHQ-9 Depression Total Score: 1 01/01/20 18 11:00 AM CAMERA REPAIR TECHNICIAN documented as of this encounter Care Teams Telephone Interceptor Operator Relationship Specialty Start Date End Date Jean Gibbons MD [address] [phone] PCP - General Family Practice 04/09/18 documented as of this encounter
--- OUTSIDE RECORDS SUMMARY | 2025-10-01 06:32 | XMS_ITS | Encounter Summary ---
Author Organization [facility] Address [address] [place] [address] Care Team Providers Care Store Stocker Name Role Phone eJan Gibbons MD Primary Care Provider [phone] [phone] Reason for Referral * Radiology Services (Routine) - Closed Specialty Diagnoses / Procedures Referred By Contac t Referred To Contact Radiology Diagnoses Abnormal mammogram Procedures MAMMO DIAG BILAT 3D SHAI W OR WO CAD MAMMO DIAGNOSTIC BILATERAL W OR WO CAD CHG DIAGNOSTIC MAMMOGRAPHY COMPUTER-AIDED DETCJ BI CHG DIGITAL BREAST TOMOSYNTHESIS BILATERAL Jean Gibbons MD [address] [address] Phone: tel: fax: [facility] [address] [facility] [address] [place] [address] Phone: tel: fax: Referral ID Status Reason Start Date Expiration Date V isits Requested Visits Authorized [id number] Closed F MC TO SCHEDULE (SGF) 09/20/2018 10/21/2019 1 1 CTOR AGENCY & STRATEGIC PARTNERSHIPS Encounter Details Date Type Department Care Team (Late st Contact Info) Description 10/11/2018 Ancillary Orders [facility] [address] [facility] [address] [place] [address] Jean Gibbons MD [address] [address] Abnormal mammogram Social History Tobacco [...] file Legal Sex Female 4:08 AM DIRECTOR AGENCY & STRATEGIC PARTNERSHIPS Gender Identity Not on file Sexual Orientation Not on file Occupation Industry Job Start Date Job End Date Not on file Not on file Not on file Not on file documented as of this encounter Plan of Treatment Not on file documented as of this encounter Results * (ABNORMAL) MAMMO DIAG BILAT 3D SHAI W OR WO CAD (10/14/2018 3:38 PM DIRECTOR AGENCY & STRATEGIC PARTNERSHIPS) Anatomical Region Laterality Modality Breast Bilateral Mammography 10/14/2018 3:38 PM DIRECTOR AGENCY & STRATEGIC PARTNERSHIPS Impressions 10/15/2018 6:48 AM DIRECTOR AGENCY & STRATEGIC PARTNERSHIPS : Stable to smaller sonographic appearance of [...] and bilateral breast ultrasound in six months. [id number] Narrative 10/15/2018 6:48 AM DIRECTOR AGENCY & STRATEGIC PARTNERSHIPS EXAM: MAMMO DIAG BILAT 3D SHAI W [...] COVID-19 10/21/2020 10/21/2020 10/28/2021 9:17 PM DIRECTOR AGENCY & STRATEGIC PARTNERSHIPS Assessment Noted Time PHQ-9 Depression Total Score: 1 01/01/20 18 11:00 AM DIRECTOR AGENCY & STRATEGIC PARTNERSHIPS documented as of this encounter Care Teams Store Stocker Relationship Specialty Start Date End Date Jean Gibbons MD [address] [address] PCP - General Family Practice 04/09/18 documented as of this encounter
--- OUTSIDE RECORDS SUMMARY | 2025-10-01 06:32 | XMS_ITS | Encounter Summary ---
Author Organization [facility] Address [address] [place] [address] Care Team Providers Care Teacher [employer] Name Role Phone Jean Gibbons MD Primary Care Provider [phone] [phone] Reason for Referral * Radiology Services (Routine) - Closed Specialty Diagnoses / Procedures Referred By Contac t Referred To Contact Diagnoses Abnormal mammogram Procedures MAMMO BREAST US BILAT LTD Jean Gibbons MD [address] [address] Phone: tel: fax: Referral ID Status Reason Start Date Expiration Date Visits Re quested Visits Authorized [id number] Closed 10/14/2018 11/14/2019 1 1 NG TECHNICIAN Encounter Details Date Type Department Care Team (Late st Contact Info) Description 10/14/2018 Ancillary Orders [facility] [address] [address] Jean Gibbons MD [address] [address] Abnormal mammogram Social History Tobacco Use Types Packs/Day Years Used Date Smoking Tobacco: Former Cigarettes 0 Q uit: 08/12/1990 Smokeless Tobacco: Never Comments:quit in the Alcohol Use Standard Drinks/Week Comments No 0 (1 standard drink = 0.6 oz pur e alcohol) Comments No Sex and Gender Information Value Date Recorded Sex Assigned at Not on file Legal Sex Female 4:08 AM MIXING TECHNICIAN Gender Identity Not on file Sexual Orientation Not on file Occupation Industry Job Start Date Job End Date Not on file Not on file Not on file Not on file documented as of this encounter Plan of Treatment Not on file documented as of this encounter Results * (ABNORMAL) MAMMO BREAST US [employer] (10/14/2018 4:14 PM MIXING TECHNICIAN) Anatomical Region Laterality Modality Bilateral Ultrasound 10/14/2018 4:14 PM MIXING TECHNICIAN Impressions 10/15/2018 6:48 AM MIXING TECHNICIAN : Stable to smaller sonographic appearance of [...] and bilateral breast ultrasound in six months. [id number] Narrative 10/15/2018 6:48 AM MIXING TECHNICIAN EXAM: MAMMO DIAG BILAT 3D SHAI W OR WO CAD, MAMMO BREAST US [employer] INDICATION: 73-year-old female presents for six month [...] R/O COVID-19 10/21/2020 10/21/2020 10/28/2021 9:17 PM MIXING TECHNICIAN Assessment Noted Time PHQ-9 Depression Total Score: 1 01/01/20 18 11:00 AM MIXING TECHNICIAN documented as of this encounter Care Teams Teacher [employer] Relationship Specialty Start Date End Date Jean Gibbons MD [address] [facility] [address] [place] [address] PCP - General Family Practice 04/09/18 documented as of this encounter
--- OUTSIDE RECORDS SUMMARY | 2025-10-01 06:33 | XMS_ITS | Encounter Summary ---
Author Organization [facility] Address [address] [place] [address] Care Team Providers Care Librarian Assistant Name Role Phone Jean Gibbons MD Primary Care Provider [phone] [phone] Encounter Details Date Type Department Care Team (Latest Contact Info) Description 03/12/2003 Outpatient Historical [facility] [place] [address] [address] Kamini Gallegos MD NO ADDRESS ON FILE MELENA, BLOOD IN STOOL (Primary Dx) Social History Tobacco Use Types Packs/Day Years Used Date Smoking Tobacco: Never Assessed Comments Unknown Sex and Gender Information Value Date Recorded Sex Assigned at Not on file Legal Sex Female 4:08 AM SET OFF BLOCKER Gender Identity Not on file Sexual Orientation Not on file documented as of this encounter Plan of Treatment Not on file documented as of this encounter Visit Diagnoses Diagnosis Blood in stool- Primary documented in this encounter Additional Health Concerns Infection Onset Date Last Indicated Resolved Time R/O COVID-19 10/21/2020 10/21/2020 10/28/2021 9:17 PM SET OFF BLOCKER documented as of this encounter Care Teams Librarian Assistant Relationship Specialty Start Date End Date Jean Gibbons MD [address] [address] PCP - General Family Practice 04/09/18 documented as of this encounter
--- OUTSIDE RECORDS SUMMARY | 2025-10-01 06:33 | XMS_ITS | Encounter Summary ---
Author Organization [facility] Address [address] [place] [address] Care Team Providers Care Deicer Inspector Pneumatic Name Role Phone Jean Gibbons MD Primary Care Provider [phone] [phone] Encounter Details Date Type Department Care Team (Latest Contact Info) Description 04/20/2000 Outpatient Historical [facility] [place] [address] [place] [address] David Bailey, DPM NO ADDRESS ON FILE Hallux valgus (Primary Dx) Social History Tobacco Use Types Packs/Day Years Used Date Smoking Tobacco: Never Assessed Comments Unknown Sex and Gender Information Value Date Recorded Sex Assigned at Not on file Legal Sex Female 4:08 AM V BELT FINISHER Gender Identity Not on file Sexual Orientation Not on file documented as of this encounter Plan of Treatment Not on file documented as of this encounter Visit Diagnoses Diagnosis Hallux valgus- Primary Hallux valgus (acquired) documented in this encounter Additional Health Concerns Infection Onset Date Last Indicated Resolved Time R/O COVID-19 10/21/2020 10/21/2020 10/28/2021 9:17 PM V BELT FINISHER documented as of this encounter Care Teams Deicer Inspector Pneumatic Relationship Specialty Start Date End Date Jean Gibbons MD [address] [place] [address] PCP - General Family Practice 04/09/18 documented as of this encounter
--- OUTSIDE RECORDS SUMMARY | 2025-10-01 06:33 | XMS_ITS | Encounter Summary ---
Author Organization [facility] Address [address] [place] [address] Care Team Providers Care Wholesale Manager Name Role Phone Jean Gibbons MD Primary Care Provider [phone] [phone] Encounter Details Date Type Department Care Team (Latest Contact Info) Description 10/19/2003 Outpatient Historical [facility] [place] [address] [address] Neo Aceves MD [address] [address] JOINT PAIN-UNSPEC (Primary Dx); NONINFEC GASTROENTERIT NEC Social History Tobacco Use Types Packs/Day Years Used Date Smoking Tobacco: Never Assessed Comments Unknown Sex and Gender Information Value Date Recorded Sex Assigned at Not on file Legal Sex Female 4:08 AM ORGAN PIPE FINISHER Gender Identity Not on file Sexual [...] R/O COVID-19 10/21/2020 10/21/2020 10/28/2021 9:17 PM ORGAN PIPE FINISHER documented as of this encounter Care Teams Wholesale Manager Relationship Specialty Start Date End Date Jean Gibbons MD [address] [address] PCP - General Family Practice 04/09/18 documented as of this encounter
--- OUTSIDE RECORDS SUMMARY | 2025-10-01 06:33 | XMS_ITS | Encounter Summary ---
Author Organization [facility] Address [address] [place] [address] Care Team Providers Care Geothermal Powerplant Mechanic Helper Name Role Phone Jean Gibbons MD Primary Care Provider [phone] [phone] Encounter Details Date Type Department Care Team (Latest Contact Info) Description 04/09/2003 Outpatient Historical [facility] Medicine [address] [address] Kamini Gallegos MD NO ADDRESS ON FILE BACKACHE NOS (Primary Dx); SPASM OF MUSCLE; ACUTE PHARYNGITIS; ALLERGIC RHINITIS NOS Social History Tobacco Use Types Packs/Day Years Used Date Smoking Tobacco: Never Assessed Comments Unknown Sex and Gender Information Value Date Recorded Sex Assigned at Not on file Legal Sex Female 4:08 AM MANAGER INTEGRITY Gender Identity Not on file Sexual Orientation Not on file documented as of this encounter Plan of Treatment Not on file documented as of this encounter Visit Diagnoses Diagnosis Backache, unspecified- Primary Spasm of muscle Acute pharyngitis Allergic rhinitis, cause unspecified documented in this encounter Additional Health Concerns Infection Onset Date Last Indicated Resolved Time R/O COVID-19 10/21/2020 10/21/2020 10/28/2021 9:17 PM MANAGER INTEGRITY documented as of this encounter Care Teams Geothermal Powerplant Mechanic Helper Relationship Specialty Start Date End Date Jean Gibbons MD [address] [address] PCP - General Family Practice 04/09/18 documented as of this encounter
--- OUTSIDE RECORDS SUMMARY | 2025-10-01 06:33 | XMS_ITS | Encounter Summary ---
Author Organization [facility] Address [address] [place] [address] Care Team Providers Care Gis Scientist Name Role Phone Jean Gibbons MD Primary Care Provider [phone] [phone] Encounter Details Date Type Department Care Team (Late st Contact Info) Description 07/10/2003 Outpatient Historical [facility] Medicine [place] [address] [address] Deanna Parada NP NO ADDRESS ON FILE Social History Tobacco Use Types Packs/Day Years Used Date Smoking Tobacco: Never Assessed Comments Unknown Sex and Gender Information Value Date Recorded Sex Assigned at Not on file Legal Sex Female 4:08 AM GOLF CLUB HEAD INSPECTOR AND ADJUSTER Gender Identity Not on file Sexual Orientation Not on file documented as of this encounter Plan of Treatment Not on file documented as of this encounter Visit Diagnoses Not on filedocumented in this encounter Additional Health Concerns Infection Onset Date Last Indicated Resolved Time R/O COVID-19 10/21/2020 10/21/2020 10/28/2021 9:17 PM GOLF CLUB HEAD INSPECTOR AND ADJUSTER documented as of this encounter Care Teams Gis Scientist Relationship Specialty Start Date End Date Jean Gibbons MD [address] [facility] [address] [place] [address] PCP - General Family Practice 04/09/18 documented as of this encounter
--- OUTSIDE RECORDS SUMMARY | 2025-10-01 06:33 | XMS_ITS | Encounter Summary ---
Author Organization [facility] Address [address] [place] [address] Care Team Providers Care Tree Topper Name Role Phone Jean Gibbons MD Primary Care Provider +1 [phone] Encounter Details Date Type Department Care Team (Latest Contact Info) Description 07/26/2004 Outpatient Historical [facility] Medicine [place] [address] [address] Deanna Parada NP NO ADDRESS ON FILE PNEUMONIA, ORGANISM NOS (Primary Dx); Diverticulosis of colon Social History Tobacco Use Types Packs/Day Years Used Date Smoking Tobacco: Never Assessed Comments Unknown Sex and Gender Information Value Date Recorded Sex Assigned at Not on file Legal Sex Female 4:08 AM HEAVY TRUCK DRIVER Gender Identity Not on file [...] R/O COVID-19 10/21/2020 10/21/2020 10/28/2021 9:17 PM HEAVY TRUCK DRIVER documented as of this encounter Care Teams Tree Topper Relationship Specialty Start Date End Date Jean Gibbons MD [address] [address] PCP - General Family Practice 04/09/18 documented as of this encounter
--- OUTSIDE RECORDS SUMMARY | 2025-10-01 06:33 | XMS_ITS | Encounter Summary ---
Author Organization [facility] Address [address] [place] [address] Care Team Providers Care Christmas Tree Grower Name Role Phone Jean Gibbons MD Primary Care Provider +1 -[phone] Encounter Details Date Type Department Care Team (Late st Contact Info) Description 03/22/2005 Outpatient Historical [facility] 06 Ben Winters DO NO ADDRESS ON FILE Social History Tobacco Use Types Packs/Day Years Used Date Smoking Tobacco: Never Assessed Comments Unknown Sex and Gender Information Value Date Recorded Sex Assigned at Not on file Legal Sex Female 4:08 AM CREPE BOX TENDER Gender Identity Not on file Sexual [...] R/O COVID-19 10/21/2020 10/21/2020 10/28/2021 9:17 PM CREPE BOX TENDER documented as of this encounter Care Teams Christmas Tree Grower Relationship Specialty Start Date End Date Jean Gibbons MD [address] [address] PCP - General Family Practice 04/09/18 documented as of this encounter
--- OUTSIDE RECORDS SUMMARY | 2025-10-01 06:33 | XMS_ITS | Encounter Summary ---
Author Organization [facility] Address [address] [place] [address] Care Team Providers Care Shrink Pit Supervisor Name Role Phone Jean Gibbons MD Primary Care Provider +1 -[phone] Encounter Details Date Type Department Care Team (Latest Contact Info) Description 09/28/2005 Outpatient Historical [facility] Medicine [address] [address] Lesley Ortega, HEADWAITRESS [address] [place] [address] ACUTE URI NOS (Primary Dx); HYPOTHYROIDISM NOS; EXAM AFTR OTHR HI-RISK COMPL RX NEC; COUGH Social History Tobacco Use Types Packs/Day Years Used Date Smoking Tobacco: Never Assessed Comments Unknown Sex and Gender Information Value Date Recorded Sex Assigned at Not on file Legal Sex Female 4:08 AM MOTORCOACH OPERATOR Gender Identity Not on file Sexual [...] R/O COVID-19 10/21/2020 10/21/2020 10/28/2021 9:17 PM MOTORCOACH OPERATOR documented as of this encounter Care Teams Shrink Pit Supervisor Relationship Specialty Start Date End Date Jean Gibbons MD [address] [address] PCP - General Family Practice 04/09/18 documented as of this encounter
--- OUTSIDE RECORDS SUMMARY | 2025-10-01 06:33 | XMS_ITS | Encounter Summary ---
Author Organization [facility] Address [address] [place] [address] Care Team Providers Care Central Office Inspector Name Role Phone Jean Gibbons MD Primary Care Provider +1 [phone] Reason for Referral * Outpatient Services (Routine) - Closed Specialty Diagnoses / Procedures Referred By Mack t Referred To Contact Radiology Diagnoses Breast tenderness in female Procedures MAMMO DIAGNOSTIC BILATERAL W OR WO CAD MAMMO DIAG BILAT 3D SHAI W OR WO CAD MAMMO DIAGNOSTIC BILATERAL W OR WO CAD Amberly Lima FNP Phone: tel: fax: [facility] [address] [facility] [address] [place] [address] Phone: tel: fax: Referral ID Status Reason Start Date Expiration Date V isits Requested Visits Authorized [id number] Closed F [facility] TO SCHEDULE (SG) 04/04/2018 05/05/2019 1 1 Encounter Details Date Type Department Care Team (Late st Contact Info) Description 05/01/2018 Ancillary Orders [facility] Family Medicine [place] 104 [facility] [address] [place] [address] Amberly Lima FNP [address] [place] [address] Breast tenderness in female Social History Tobacco Use Types Packs/Day Years Used Date Smoking Tobacco: Former Cigarettes 0 Q uit: 08/12/1990 Smokeless Tobacco: Never Comments:quit in the Alcohol Use Standard Drinks/Week Comments No 0 (1 standard drink = 0.6 oz pur e alcohol) Comments No Sex and Gender Information Value Date Recorded Sex Assigned at Not on file Legal Sex Female 4:08 AM LOADER HELPER SORTING YARD Gender Identity Not on file Sexual [...] also recommended. Patient received a result/recommendation letter. [id number] Narrative 05/03/2018 9:22 AM CDT EXAM: MAMMO DIAGNOSTIC BILATERAL W OR WO CAD, MAMMO BREAST US BILAT [facility] INDICATION: 72-year-old female presents with [...] cm from the nipple. us Amberly Lima MEAT PUMPER MAMMO ORDERABLES Final Result documented in this encounter Visit Diagnoses Diagnosis Breast tenderness in female Mastodynia Breast tenderness in female Mastodynia documented in this encounter Additional Health Concerns Infection Onset Date Last Indicated Resolved Time R/O COVID-19 10/21/2020 10/21/2020 10/28/2021 9:17 PM LOADER HELPER SORTING YARD Assessment Noted Time PHQ-9 Depression Total Score: 1 01/01/20 18 11:00 AM LOADER HELPER SORTING YARD documented as of this encounter Care Teams Central Office Inspector Relationship Specialty Start Date End Date Jean Gibbons MD [address] [address] PCP - General Family Practice 04/09/18 documented as of this encounter
--- OUTSIDE RECORDS SUMMARY | 2025-10-01 06:33 | XMS_ITS | Encounter Summary ---
Author Organization [facility] Address [address] [place] [address] Care Team Providers Care Guest Services Name Role Phone Jean Gibbons MD Primary Care Provider +1 [phone] Reason for Referral * Outpatient Services (Routine) - Closed Specialty Diagnoses / Procedures Referred By Mack lewis Referred To Contact Diagnoses Breast tenderness in female Procedures MAMMO BREAST US BILAT LTD Amberly Lima FNP Phone: tel: fax: [facility] Pre-Registration [place] CALL TO MAKE APPOINTMENT ONLY [address] [place] [address] Phone: tel: fax: Referral ID Status Reason Start Date Expiration Date Visits Re quested Visits Authorized [id number] Closed 05/01/2018 06/01/2019 1 1 Encounter Details Date Type Department Care Team (Late st Contact Info) Description 05/01/2018 Ancillary Orders [facility] Family Medicine [place] 104 [facility] [address] [place] [address] Amberly Lima FNP [address] [place] [address] Breast tenderness in female Social History Tobacco Use Types Packs/Day Years Used Date Smoking Tobacco: Former Cigarettes 0 Q uit: 08/12/1990 Smokeless Tobacco: Never Comments:quit in the Alcohol Use Standard Drinks/Week Comments No 0 (1 standard drink = 0.6 oz pur e alcohol) Comments No Sex and Gender Information Value Date Recorded Sex Assigned at Not on file Legal Sex Female 4:08 AM PROCEDURE MANAGER Gender Identity Not on file Sexual Orientation Not on file Occupation Industry Job Start Date Job End Date Not on file Not on file Not on file Not on file documented as of this encounter Plan of Treatment Not on file documented as of this encounter Results * (ABNORMAL) MAMMO BREAST US [employer] (05/01/2018 1:03 PM CDT) Anatomical Region Laterality [...] also recommended. Patient received a result/recommendation letter. [id number] Narrative 05/03/2018 9:22 AM CDT EXAM: MAMMO DIAGNOSTIC BILATERAL W OR WO CAD, MAMMO BREAST US [employer] INDICATION: 72-year-old female presents with tenderness and [...] 1 cm from the nipple. Amberly Lima [facility] MAMMO ORDERABLES Final Result documented in this encounter Visit Diagnoses Diagnosis Breast tenderness in female Mastodynia Breast tenderness in female Mastodynia documented in this encounter Additional Health Concerns Infection Onset Date Last Indicated Resolved Time R/O COVID-19 10/21/2020 10/21/2020 10/28/2021 9:17 PM PROCEDURE MANAGER Assessment Noted Time PHQ-9 Depression Total Score: 1 01/01/20 18 11:00 AM PROCEDURE MANAGER documented as of this encounter Care Teams Guest Services Relationship Specialty Start Date End Date Jean Gibbons MD [address] [address] PCP - General Family Practice 04/09/18 documented as of this encounter
--- OUTSIDE RECORDS SUMMARY | 2025-10-01 06:33 | XMS_ITS | Encounter Summary ---
Author Organization [facility] Address [address] [place] [address] Care Team Providers Care Finisher Hand Name Role Phone Jean Gibbons MD Primary Care Provider +1 [phone] Encounter Details Date Type Department Care Team (Latest Contact Info) Description 01/31/2005 Outpatient Historical [facility] Medicine [place] [address] [address] Lesley Ortega, SLOT KEY PERSON [address] [place] [address] ACUTE URI NOS (Primary Dx); ACUTE PHARYNGITIS; GENERAL OSTEOARTHROSIS Social History Tobacco Use Types Packs/Day Years Used Date Smoking Tobacco: Never Assessed Comments Unknown Sex and Gender Information Value Date Recorded Sex Assigned at Not on file Legal Sex Female 4:08 AM REIKI PRACTITIONER Gender Identity Not on file Sexual Orientation [...] R/O COVID-19 10/21/2020 10/21/2020 10/28/2021 9:17 PM REIKI PRACTITIONER documented as of this encounter Care Teams Finisher Hand Relationship Specialty Start Date End Date Jean Gibbons MD [address] [facility] [address] [place] [address] PCP - General Family Practice 04/09/18 documented as of this encounter
--- OUTSIDE RECORDS SUMMARY | 2025-10-01 06:33 | XMS_ITS | Encounter Summary ---
Author Organization [facility] Address [address] [place] [address] Care Team Providers Care Weather Strip Mechanic Name Role Phone Jean Gibbons MD Primary Care Provider +1 -[phone] Encounter Details Date Type Department Care Team (Latest Contact Info) Description 08/01/2005 Outpatient Historical [facility] Medicine [address] [address] Ben Winters DO NO ADDRESS ON FILE BACKACHE NOS (Primary Dx); HYPERTENSION NOS; DEPRESSIVE DISORDER NEC Social History Tobacco Use Types Packs/Day Years Used Date Smoking Tobacco: Never Assessed Comments Unknown Sex and Gender Information Value Date Recorded Sex Assigned at Not on file Legal Sex Female 4:08 AM GIRL FRIDAY Gender Identity Not on file Sexual Orientation Not on file documented as of this encounter Plan of Treatment Not on file documented as of this encounter Visit Diagnoses Diagnosis Backache, unspecified- Primary Unspecified essential hypertension Depressive disorder, not elsewhere classified documented in this encounter Additional Health Concerns Infection Onset Date Last Indicated Resolved Time R/O COVID-19 10/21/2020 10/21/2020 10/28/2021 9:17 PM GIRL FRIDAY documented as of this encounter Care Teams Weather Strip Mechanic Relationship Specialty Start Date End Date Jean Gibbons MD [address] [address] PCP - General Family Practice 04/09/18 documented as of this encounter
--- OUTSIDE RECORDS SUMMARY | 2025-10-01 06:33 | XMS_ITS | Encounter Summary ---
Author Organization [facility] Address [address] [place] [address] Care Team Providers Care Fingernail Sculptor Name Role Phone Jean Gibbons MD Primary Care Provider +1 -[phone] Encounter Details Date Type Department Care Team (Latest Contact Info) Description 02/23/2004 Outpatient Historical [facility] Ian Ryan, DO [address] [place] [address] [place] [address] ADMINISTRTVE ENCOUNT NOS (Primary Dx) Social History Tobacco Use Types Packs/Day Years Used Date Smoking Tobacco: Never Assessed Comments Unknown Sex and Gender Information Value Date Recorded Sex Assigned at Not on file Legal Sex Female 4:08 AM TIRE BLADDER MAKER Gender Identity Not on file Sexual Orientation Not on file documented as of this encounter Plan of Treatment Not on file documented as of this encounter Visit Diagnoses Diagnosis Encounters for unspecified administrative purpose- Primary documented in this encounter Additional Health Concerns Infection Onset Date Last Indicated Resolved Time R/O COVID-19 10/21/2020 10/21/2020 10/28/2021 9:17 PM TIRE BLADDER MAKER documented as of this encounter Care Teams Fingernail Sculptor Relationship Specialty Start Date End Date Jean Gibbons MD [address] [place] [address] PCP - General Family Practice 04/09/18 documented as of this encounter
--- OUTSIDE RECORDS SUMMARY | 2025-10-01 06:33 | XMS_ITS | Encounter Summary ---
Author Organization [facility] Address [address] [place] [address] Care Team Providers Care Long Wall Mining Machine Tender Name Role Phone Jean Gibbons MD Primary Care Provider +1 -[phone] Encounter Details Date Type Department Care Team (Latest Contact Info) Description 07/10/2003 Outpatient Historical [facility] Medicine [address] [address] Ben Winters DO NO ADDRESS ON FILE ORAL APHTHAE (Primary Dx); ACUTE PHARYNGITIS; ACUTE BRONCHITIS; ARTERITIS NOS Social History Tobacco Use Types Packs/Day Years Used Date Smoking Tobacco: Never Assessed Comments Unknown Sex and Gender Information Value Date Recorded Sex Assigned at Not on file Legal Sex Female 4:08 AM LOOM CONTROL CHAIN BUILDER Gender Identity Not on file Sexual Orientation Not on file documented as of this encounter Plan of Treatment Not on file documented as of this encounter Visit Diagnoses Diagnosis Oral aphthae- Primary Acute pharyngitis Acute bronchitis Arteritis, unspecified documented in this encounter Additional Health Concerns Infection Onset Date Last Indicated Resolved Time R/O COVID-19 10/21/2020 10/21/2020 10/28/2021 9:17 PM LOOM CONTROL CHAIN BUILDER documented as of this encounter Care Teams Long Wall Mining Machine Tender Relationship Specialty Start Date End Date Jean Gibbons MD [address] [address] PCP - General Family Practice 04/09/18 documented as of this encounter
--- OUTSIDE RECORDS SUMMARY | 2025-10-01 06:33 | XMS_ITS | Encounter Summary ---
Author Organization [facility] Address [address] [place] [address] Care Team Providers Care Agribusiness Internship Name Role Phone Jean Gibbons MD Primary Care Provider +1 -[phone] Encounter Details Date Type Department Care Team (Latest Contact Info) Description 03/08/2001 Outpatient Historical [facility] Endocrinology-Jl Gavino Diallo [address] [place] [address] Mine Tucker MD [address] [place], [place] [id number] Thyrotoxicosis without mention of goiter or other cause, without mention of thyrotoxic crisis or storm (Primary Dx) Social History Tobacco Use Types Packs/Day Years Used Date Smoking Tobacco: Never Assessed Comments Unknown Sex and Gender Information Value Date Recorded Sex Assigned at Not on file Legal Sex Female 4:08 AM SOLUTION STRATEGIST Gender Identity Not on file Sexual Orientation [...] COVID-19 10/21/2020 10/21/2020 10/28/2021 9:17 PM SOLUTION STRATEGIST documented as of this encounter Care Teams Agribusiness Internship Relationship Specialty Start Date End Date Jean Gibbons MD [address] [place] [address] PCP - General Family Practice 04/09/18 documented as of this encounter
--- OUTSIDE RECORDS SUMMARY | 2025-10-01 06:33 | XMS_ITS | Encounter Summary ---
Author Organization [facility] Address [address] [place] [address] Care Team Providers Care Collections Agent Name Role Phone Jean Gibbons MD Primary Care Provider +1 -[phone] Encounter Details Date Type Department Care Team (Late st Contact Info) Description 03/13/2003 Outpatient Historical [facility] FY06 Deanna Parada NP NO ADDRESS ON FILE Social History Tobacco Use Types Packs/Day Years Used Date Smoking Tobacco: Never Assessed Comments Unknown Sex and Gender Information Value Date Recorded Sex Assigned at Not on file Legal Sex Female 4:08 AM SORT MANAGER Gender Identity Not on file Sexual Orientation Not on file documented as of this encounter Plan of Treatment Not on file documented as of this encounter Visit Diagnoses Not on filedocumented in this encounter Additional Health Concerns Infection Onset Date Last Indicated Resolved Time R/O COVID-19 10/21/2020 10/21/2020 10/28/2021 9:17 PM SORT MANAGER documented as of this encounter Care Teams Collections Agent Relationship Specialty Start Date End Date Jean Gibbons MD [address] [facility] [address] [place] [address] PCP - General Family Practice 04/09/18 documented as of this encounter
--- OUTSIDE RECORDS SUMMARY | 2025-10-01 06:33 | XMS_ITS | Encounter Summary ---
Author Organization [facility] Address [address] [place] [address] Care Team Providers Care Pourer Off Name Role Phone Jean Gibbons MD Primary Care Provider +1 -[phone] Encounter Details Date Type Department Care Team (Latest Contact Info) Description 04/27/2004 Outpatient Historical [facility] Medicine [address] [address] Nicolas Parks PA NO ADDRESS ON FILE ALLERGY, UNSPECIFIED (Primary Dx); DEPRESSIVE DISORDER NEC; JOINT PAIN-UNSPEC Social History Tobacco Use Types Packs/Day Years Used Date Smoking Tobacco: Never Assessed Comments Unknown Sex and Gender Information Value Date Recorded Sex Assigned at Not on file Legal Sex Female 4:08 AM PATTERN LAYOUT WORKER Gender Identity Not on file Sexual [...] R/O COVID-19 10/21/2020 10/21/2020 10/28/2021 9:17 PM PATTERN LAYOUT WORKER documented as of this encounter Care Teams Pourer Off Relationship Specialty Start Date End Date Jean Gibbons MD [address] [address] PCP - General Family Practice 04/09/18 documented as of this encounter
--- OUTSIDE RECORDS SUMMARY | 2025-10-01 06:33 | XMS_ITS | Encounter Summary ---
Author Organization [facility] Address [address] [place] [address] Care Team Providers Care Destination Imagination Coordinator Name Role Phone Jean Gibbons MD Primary Care Provider +1 -[phone] Encounter Details Date Type Department Care Team (Latest Contact Info) Description 02/08/2004 Outpatient Historical [facility] Medicine [place] [address] [address] Ben Winters DO NO ADDRESS ON FILE EDEMA (Primary Dx) Social History Tobacco Use Types Packs/Day Years Used Date Smoking Tobacco: Never Assessed Comments Unknown Sex and Gender Information Value Date Recorded Sex Assigned at Not on file Legal Sex Female 4:08 AM GROUP BILLING COORDINATOR Gender Identity Not on file Sexual Orientation Not on file documented as of this encounter Plan of Treatment Not on file documented as of this encounter Visit Diagnoses Diagnosis Edema- Primary documented in this encounter Additional Health Concerns Infection Onset Date Last Indicated Resolved Time R/O COVID-19 10/21/2020 10/21/2020 10/28/2021 9:17 PM GROUP BILLING COORDINATOR documented as of this encounter Care Teams Destination Imagination Coordinator Relationship Specialty Start Date End Date Jean Gibbons MD [address] [address] PCP - General Family Practice 04/09/18 documented as of this encounter
--- OUTSIDE RECORDS SUMMARY | 2025-10-01 06:33 | XMS_ITS | Encounter Summary ---
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 storm (Primary Dx) Social History Tobacco Use Types Packs/Day Years Used Date Smoking Tobacco: Never Assessed Comments Unknown Sex and Gender Information Value Date Recorded Sex Assigned at Not on file Legal Sex Female 4:08 AM CORRECTIVE THERAPIST Gender Identity Not on file Sexual [...] R/O COVID-19 10/21/2020 10/21/2020 10/28/2021 9:17 PM CORRECTIVE THERAPIST documented as of this encounter Care Teams Diagnostic Medical Sonographer Relationship Specialty Start Date End Date Jean Gibbons MD [address] [place] [address] PCP - General Family Practice 04/09/18 documented as of this encounter
--- OUTSIDE RECORDS SUMMARY | 2025-10-01 06:33 | XMS_ITS | Encounter Summary ---
Author Organization [facility] Address [address] [place] [address] Care Team Providers Care Monitoring Manager Name Role Phone Jean Gibbons MD Primary Care Provider +1 -[phone] Encounter Details Date Type Department Care Team (Latest Contact Info) Description 12/09/2003 Outpatient Historical [facility] Medicine [place] [address] [address] Ben Winters DO NO ADDRESS ON FILE ABDOMINAL PAIN UNSPEC SITE (Primary Dx); DIARRHEA NOS Social History Tobacco Use Types Packs/Day Years Used Date Smoking Tobacco: Never Assessed Comments Unknown Sex and Gender Information Value Date Recorded Sex Assigned at Not on file Legal Sex Female 4:08 AM HEALTH SAFETY INSTRUCTOR Gender Identity Not on file Sexual Orientation Not on file documented as of this encounter Plan of Treatment Not on file documented as of this encounter Visit Diagnoses Diagnosis Abdominal pain, unspecified site- Primary Diarrhea documented in this encounter Additional Health Concerns Infection Onset Date Last Indicated Resolved Time R/O COVID-19 10/21/2020 10/21/2020 10/28/2021 9:17 PM HEALTH SAFETY INSTRUCTOR documented as of this encounter Care Teams Monitoring Manager Relationship Specialty Start Date End Date Jean Gibbons MD [address] [address] PCP - General Family Practice 04/09/18 documented as of this encounter
--- OUTSIDE RECORDS SUMMARY | 2025-10-01 06:33 | XMS_ITS | Encounter Summary ---
Author Organization [facility] Address [address] [place] [address] Care Team Providers Care Relay Operator Name Role Phone Jean Gibbons MD Primary Care Provider +1 -[phone] Encounter Details Date Type Department Care Team (Late st Contact Info) Description 10/19/2003 Outpatient Historical [facility] Medicine [place] [address] [address] Neo Aceves MD [address] [address] Social History Tobacco Use Types Packs/Day Years Used Date Smoking Tobacco: Never Assessed Comments Unknown Sex and Gender Information Value Date Recorded Sex Assigned at Not on file Legal Sex Female 4:08 AM SLIP COVER ESTIMATOR Gender Identity Not on file Sexual Orientation Not on file documented as of this encounter Plan of Treatment Not on file documented as of this encounter Visit Diagnoses Not on filedocumented in this encounter Additional Health Concerns Infection Onset Date Last Indicated Resolved Time R/O COVID-19 10/21/2020 10/21/2020 10/28/2021 9:17 PM SLIP COVER ESTIMATOR documented as of this encounter Care Teams Relay Operator Relationship Specialty Start Date End Date Jean Gibbons MD [address] [address] PCP - General Family Practice 04/09/18 documented as of this encounter
--- OUTSIDE RECORDS SUMMARY | 2025-10-01 06:33 | XMS_ITS | Encounter Summary ---
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 storm (Primary Dx) Social History Tobacco Use Types Packs/Day Years Used Date Smoking Tobacco: Never Assessed Comments Unknown Sex and Gender Information Value Date Recorded Sex Assigned at Not on file Legal Sex Female 4:08 AM CONSTRUCTION QUALITY CONTROL MANAGER Gender Identity Not on file Sexual [...] R/O COVID-19 10/21/2020 10/21/2020 10/28/2021 9:17 PM CONSTRUCTION QUALITY CONTROL MANAGER documented as of this encounter Care Teams Meeting Specialist Relationship Specialty Start Date End Date Jean Gibbons MD [address] [place] [address] PCP - General Family Practice 04/09/18 documented as of this encounter
--- OUTSIDE RECORDS SUMMARY | 2025-10-01 06:33 | XMS_ITS | Encounter Summary ---
Author Organization [facility] Address [address] [place] [address] Care Team Providers Care Tongue Lining Stitcher Name Role Phone Jean Gibbons MD Primary Care Provider +1 [phone] Encounter Details Date Type Department Care Team (Latest Contact Info) Description 06/10/2003 Outpatient Historical [facility] Medicine [place] [address] [address] Kamini Gallegos MD NO ADDRESS ON FILE ALLERGIC RHINITIS NOS (Primary Dx) Social History Tobacco Use Types Packs/Day Years Used Date Smoking Tobacco: Never Assessed Comments Unknown Sex and Gender Information Value Date Recorded Sex Assigned at Not on file Legal Sex Female 4:08 AM ECMO SPECIALIST Gender Identity Not on file Sexual Orientation Not on file documented as of this encounter Plan of Treatment Not on file documented as of this encounter Visit Diagnoses Diagnosis Allergic rhinitis, cause unspecified- Primary documented in this encounter Additional Health Concerns Infection Onset Date Last Indicated Resolved Time R/O COVID-19 10/21/2020 10/21/2020 10/28/2021 9:17 PM ECMO SPECIALIST documented as of this encounter Care Teams Tongue Lining Stitcher Relationship Specialty Start Date End Date Jean Gibbons MD [address] [address] PCP - General Family Practice 04/09/18 documented as of this encounter
--- OUTSIDE RECORDS SUMMARY | 2025-10-01 06:33 | XMS_ITS | Encounter Summary ---
Author Organization [facility] Address [address] [place] [address] Care Team Providers Care Central Office Associate Name Role Phone Jean Gibbons MD Primary Care Provider [phone] [phone] Encounter Details Date Type Department Care Team (Latest Contact Info) Description 08/07/2005 Outpatient Historical [facility] Medicine [place] [address] [address] Neo Aceves MD [address] [address] Vaccine for influenza (Primary Dx) Social History Tobacco Use Types Packs/Day Years Used Date Smoking Tobacco: Never Assessed Comments Unknown Sex and Gender Information Value Date Recorded Sex Assigned at Not on file Legal Sex Female 4:08 AM INFORMATION TECHNOLOGY PROGRAM MANAGER Gender Identity Not on file Sexual Orientation Not on file documented as of this encounter Plan of Treatment Not on file documented as of this encounter Visit Diagnoses Diagnosis Vaccine for influenza- Primary Need for prophylactic vaccination and inoculation against influenza documented in this encounter Additional Health Concerns Infection Onset Date Last Indicated Resolved Time R/O COVID-19 10/21/2020 10/21/2020 10/28/2021 9:17 PM INFORMATION TECHNOLOGY PROGRAM MANAGER documented as of this encounter Care Teams Central Office Associate Relationship Specialty Start Date End Date Jean Gibbons MD [address] [id number] PCP - General Family Practice 04/09/18 documented as of this encounter
--- OUTSIDE RECORDS SUMMARY | 2025-10-01 06:33 | XMS_ITS | Encounter Summary ---
Author Organization [facility] Address [address] [place] [address] Care Team Providers Care Oracle Financials Developer Name Role Phone Jean Gibbons MD Primary Care Provider [phone] [phone] Encounter Details Date Type Department Care Team (Late st Contact Info) Description 10/04/2002 Inpatient Historical [facility] Theo Rust MD NO ADDRESS ON FILE CHEST PAIN NEC (Primary Dx) Social History Tobacco Use Types Packs/Day Years Used Date Smoking Tobacco: Never Assessed Comments Unknown Sex and Gender Information Value Date Recorded Sex Assigned at Not on file Legal Sex Female 4:08 AM BULK SYSTEM OPERATOR Gender Identity Not on file Sexual Orientation Not on file documented as of this encounter Plan of Treatment Not on file documented as of this encounter Visit Diagnoses Diagnosis Other chest pain- Primary documented in this encounter Additional Health Concerns Infection Onset Date Last Indicated Resolved Time R/O COVID-19 10/21/2020 10/21/2020 10/28/2021 9:17 PM BULK SYSTEM OPERATOR documented as of this encounter Care Teams Oracle Financials Developer Relationship Specialty Start Date End Date Jean Gibbons MD [address] [place] [address] PCP - General Family Practice 04/09/18 documented as of this encounter
--- OUTSIDE RECORDS SUMMARY | 2025-10-01 06:33 | XMS_ITS | Encounter Summary ---
Author Organization [facility] Address [address] [place] [address] Care Team Providers Care Interior Horticulturist Name Role Phone Jean Gibbons MD Primary Care Provider [phone] [phone] Encounter Details Date Type Department Care Team (Latest Contact Info) Description 10/04/2002 Outpatient Historical [facility] [address] [place] [address] Non-Staff, Physician NO ADDRESS ON FILE CHEST PAIN NOS (Primary Dx) Social History Tobacco Use Types Packs/Day Years Used Date Smoking Tobacco: Never Assessed Comments Unknown Sex and Gender Information Value Date Recorded Sex Assigned at Not on file Legal Sex Female 4:08 AM ASSISTANT PROFESSOR OF DRAMA Gender Identity Not on file Sexual Orientation Not on file documented as of this encounter Plan of Treatment Not on file documented as of this encounter Visit Diagnoses Diagnosis Chest pain, unspecified- Primary documented in this encounter Additional Health Concerns Infection Onset Date Last Indicated Resolved Time R/O COVID-19 10/21/2020 10/21/2020 10/28/2021 9:17 PM ASSISTANT PROFESSOR OF DRAMA documented as of this encounter Care Teams Interior Horticulturist Relationship Specialty Start Date End Date Jean Gibbons MD [address] [place] [phone] PCP - General Family Practice 04/09/18 documented as of this encounter
--- OUTSIDE RECORDS SUMMARY | 2025-10-01 06:33 | XMS_ITS | Encounter Summary ---
Author Organization [facility] Address [address] [place] [address] Care Team Providers Care Athletic Scout Name Role Phone Jean Gibbons MD Primary Care Provider [phone] [phone] Encounter Details Date Type Department Care Team (Latest Contact Info) Description 10/23/2005 Outpatient Historical [facility] Medicine [place] [address] [address] Deanna Parada NP NO ADDRESS ON FILE ACUTE SINUSITIS NOS (Primary Dx); JOINT PAIN-UNSPEC Social History Tobacco Use Types Packs/Day Years Used Date Smoking Tobacco: Never Assessed Comments Unknown Sex and Gender Information Value Date Recorded Sex Assigned at Not on file Legal Sex Female 4:08 AM LOCAL CITY DRIVER Gender Identity Not on file Sexual Orientation Not on file documented as of this encounter Plan of Treatment Not on file documented as of this encounter Visit Diagnoses Diagnosis Acute sinusitis, unspecified- Primary Pain in joint, site unspecified documented in this encounter Additional Health Concerns Infection Onset Date Last Indicated Resolved Time R/O COVID-19 10/21/2020 10/21/2020 10/28/2021 9:17 PM LOCAL CITY DRIVER documented as of this encounter Care Teams Athletic Scout Relationship Specialty Start Date End Date Jean Gibbons MD [address] [address] PCP - General Family Practice 04/09/18 documented as of this encounter
--- OUTSIDE RECORDS SUMMARY | 2025-10-01 06:33 | XMS_ITS | Encounter Summary ---
Author Organization [facility] Address [address] [place] [address] Care Team Providers Care Admitting Office Escort Name Role Phone Jean Gibbons MD Primary Care Provider +1 [phone] Encounter Details Date Type Department Care Team (Late st Contact Info) Description 03/02/2000 Outpatient Historical [facility] Social History Tobacco Use Types Packs/Day Years Used Date Smoking Tobacco: Never Assessed Comments Unknown Sex and Gender Information Value Date Recorded Sex Assigned at Not on file Legal Sex Female 4:08 AM LEVELER HELPER Gender Identity Not on file Sexual Orientation Not on file documented as of this encounter Plan of Treatment Not on file documented as of this encounter Visit Diagnoses Not on filedocumented in this encounter Additional Health Concerns Infection Onset Date Last Indicated Resolved Time R/O COVID-19 10/21/2020 10/21/2020 10/28/2021 9:17 PM LEVELER HELPER documented as of this encounter Care Teams Admitting Office Escort Relationship Specialty Start Date End Date Jean Gibbons MD [address] [place] [address] PCP - General Family Practice 04/09/18 documented as of this encounter
--- OUTSIDE RECORDS SUMMARY | 2025-10-01 06:33 | XMS_ITS | Encounter Summary ---
Author Organization [facility] Address [address] [place] [address] Care Team Providers Care Pin Drafting Machine Tender Name Role Phone Jean Gibbons MD Primary Care Provider +1 [phone] Encounter Details Date Type Department Care Team (Latest Contact Info) Description 08/31/2003 Outpatient Historical [facility] Medicine [address] [address] Ben Winters DO NO ADDRESS ON FILE MYALGIA AND MYOSITIS NOS (Primary Dx); Sprain of neck; OSTEOARTHROS NOS-UNSPEC Social History Tobacco Use Types Packs/Day Years Used Date Smoking Tobacco: Never Assessed Comments Unknown Sex and Gender Information Value Date Recorded Sex Assigned at Not on file Legal Sex Female 4:08 AM MANAGER BEHAVIORAL Gender Identity Not on file Sexual Orientation [...] COVID-19 10/21/2020 10/21/2020 10/28/2021 9:17 PM MANAGER BEHAVIORAL documented as of this encounter Care Teams Pin Drafting Machine Tender Relationship Specialty Start Date End Date Jean Gibbons MD [address] [address] PCP - General Family Practice 04/09/18 documented as of this encounter
--- OUTSIDE RECORDS SUMMARY | 2025-10-01 06:33 | XMS_ITS | Encounter Summary ---
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) Social History Tobacco Use Types Packs/Day Years Used Date Smoking Tobacco: Never Assessed Comments Unknown Sex and Gender Information Value Date Recorded Sex Assigned at Not on file Legal Sex Female 4:08 AM REPAIRER ENGINE PRODUCTION Gender Identity Not on file Sexual Orientation [...] COVID-19 10/21/2020 10/21/2020 10/28/2021 9:17 PM REPAIRER ENGINE PRODUCTION documented as of this encounter Care Teams Television Maintenance Worker Relationship Specialty Start Date End Date Jean Gibbons MD [address] [place] [phone] PCP - General Family Practice 04/09/18 documented as of this encounter
--- OUTSIDE RECORDS SUMMARY | 2025-10-01 06:33 | XMS_ITS | Encounter Summary ---
Author Organization [facility] Address [address] [place] [address] Care Team Providers Care Evp And Chief Operating Officer Name Role Phone Jean Gibbons MD Primary Care Provider [phone] [phone] Encounter Details Date Type Department Care Team (Latest Contact Info) Description 02/08/2004 Outpatient Historical [facility] Medicine [place] [address] [address] Ben Winters DO NO ADDRESS ON FILE EDEMA (Primary Dx); LUMBAGO; HYPOTHYROIDISM NOS Social History Tobacco Use Types Packs/Day Years Used Date Smoking Tobacco: Never Assessed Comments Unknown Sex and Gender Information Value Date Recorded Sex Assigned at Not on file Legal Sex Female 4:08 AM WEAVING INSTRUCTOR Gender Identity Not on file Sexual Orientation Not on file documented as of this encounter Plan of Treatment Not on file documented as of this encounter Visit Diagnoses Diagnosis Edema- Primary Lumbago Unspecified hypothyroidism documented in this encounter Additional Health Concerns Infection Onset Date Last Indicated Resolved Time R/O COVID-19 10/21/2020 10/21/2020 10/28/2021 9:17 PM WEAVING INSTRUCTOR documented as of this encounter Care Teams Evp And Chief Operating Officer Relationship Specialty Start Date End Date Jean Gibbons MD [address] [address] PCP - General Family Practice 04/09/18 documented as of this encounter
--- OUTSIDE RECORDS SUMMARY | 2025-10-01 06:33 | XMS_ITS | Clinical Summary ---
Author Organization [facility] Address [address] [facility] [address] [place] [address] Care Team Providers Care Leather Goods Maker Name Role Phone Jean Gibbons MD Primary Care Provider +1 [phone] Allergies Active Allergy Reactions Criticality Noted Date Comments Alpha-Gal (Bghomhaxx-Ldryp-3,3-Gala ctose) Anxiety Low 07/20/2025 Atorvastatin Muscle Pain [...] SPASM 60 Tablet 5 5 Active Fish Oil-[place]-3 Fatty Acids 360-1,200 mg Capsule Take 1 Capsule by mouth daily. 90 Capsule 5 Active fluticasone propionate (FLONASE) 50 mcg/spray [place], Suspension nasal inhaler Administer 2 Sprays in [...] Take 10 mg by mouth daily. Active cloNIDine HCL (CATAPRES) 0.1 mg tabletIndications: Primary hypertension Take 1 Tablet (0.1 mg) by mouth 3 times daily as needed for Blood Pressure (Systolic >180, Diastolic >100). 15 Tablet 5 Active Active Problems Problem Noted Date Diagnosed [...] spine with radiculopathy, cerv ical region 12/26/2018 manager long term care prescription opiate use 07/02/2018 Spinal stenosis [...] Encounters Date Type Department Care Team Description 09/25/2025 10:20 AM SOCK LINING EXAMINER Video Visit [address] [phone] Jean Gibbons MD Primary hypertension (Primary Dx) 09/08/2025 Orders Only [facility] Health Information Management [place] [address] [place] [address] Provider, Abstract 09/07/2025 5:00 PM CDT Office Visit [address] [address] Ellie Han NP Left leg swelling (Primary Dx) 09/07/2025 Nurse Triage [address] [address] Jean Gibbons MD 08/25/2025 External Device Data ST[facility] ABSTRACTION Provider, Abstract 08/18/[address] [address] Jean Gibbons MD Provider Call 08/11/2025 3:40 PM CDT Video Visit [address] [phone] Katerin Glover FNP Generalized muscle weakness (Primary Dx); Hospital discharge follow-up 08/11/2025 External Device Data ST[place] ABSTRACTION Provider, Abstract 07/30/[address] [address] Jean Gibbons MD Patient Communication 07/29/[address] [phone] Jean Gibbons MD APPOINTMENT 07/28/2025 External Device Data [facility] ABSTRACTION Provider, Abstract 07/21/2025 3:00 PM CDT Video Visit [address] [phone] Jean Gibbons MD Paroxysmal atrial fibrillation (CMS/HCC) (Primary Dx); Chronic systolic congestive heart failure; Myelodysplastic syndrome (CMS/HCC); Primary hypertension; Bradycardia 07/21/2025 Orders Only [address] [phone] Provider, Abstract 07/21/[address] [address] Jean Gibbons MD appointment 07/21/[address] [facility] [address] [address] Provider, Abstract 07/17/2025 Orders Only [facility] [address] [place] [address] Provider, Abstract 07/16/2025 5:55 AM CDT - 07/16/2025 11:59 PM CDT Hospital Encounter [facility] [address] [address] Ambulance, [facility] Discharge Disposition: [facility] 07/15/2025 Results Follow-Up [address] [address] Jean Gibbons MD COMPREHENSIVE METABOLIC PANEL, TSH, T4 FREE, CBC WITH DIFFERENTIAL 07/15/2025 External Device Data ST[place] ABSTRACTION Provider, Abstract 07/11/2025 12:45 AM CDT - 07/11/2025 11:59 PM CDT Hospital Encounter [facility] [address] [place] [address] Ambulance, [facility] Discharge Disposition: [facility] 07/10/2025 Orders Only [address] [address] Jean Gibbons MD 07/10/[address] [address] Jean Gibbons MD Medication Review; sinus/allergies 07/10/2025 Patient Self-Triage [facility] [address] [place] [address] 07/09/[address] [address] Jean Gibbons MD Provider Call 07/02/[address] [address] Katerin Glover, BUCKRAM SEWER Yeast infection; Anxiety, generalized; Moderate episode of recurrent major depressive disorder (CMS/HCC) from Last 3 Months Immunizations Immunization Administration [...] on file Legal Sex Female 4:19 AM SOCK LINING EXAMINER Gender Identity Not on file Sexual Orientation Not on file Last Filed Vital Signs Vital Sign Reading Time Taken Comments Blood Pressure 163/85 09/25/2025 10:26 AM SOCK LINING EXAMINER Pulse 81 09/07/2025 4:52 PM CDT Temperature 37.4 C (99.3 F) 09/07/2025 4:52 PM CDT Respiratory Rate 20 09/07/2025 4:52 PM CDT Oxygen Saturation 100% 09/07/2025 4:52 PM CDT Inhaled Oxygen Concentration - - Weight 66.2 kg (146 lb) 09/25/2025 10:26 AM SOCK LINING EXAMINER Height 167.6 cm (5' 6 ) 09/25/2025 10:26 AM SOCK LINING EXAMINER Body Mass Index 23.57 09/25/2025 10:26 AM SOCK LINING EXAMINER Plan of Treatment Health Maintenance Due Date Last Done Comments ZOSTER VACCINE (1 of 2) 1995 DTAP/TDAP/TD VACCINES (1 - Tdap) 01/18/2006 01/18/20 06, 11/12/1997 COLORECTAL SCREENING 09/11/2016 09/11/2011 RSV VACCINE (60+ or ) (1 - 1-dose 75+ series) 2020 INFLUENZA VACCINE (#1) 2025 , 08/15/2023, 08/15/2023, Additional history exists COVID-19 Vaccine [...] Plan Heart Failure Problem No Grandstaff, Judy, CHIEF ACCOUNTANT Heart Failure Goal Care Plan Heart Failure Problem No Grandstaff, Judy, CHIEF ACCOUNTANT Heart Failure Goal Care Plan Heart Failure Problem No Grandstaff, Judy, CHIEF ACCOUNTANT Heart Failure Goal Care Plan Heart Failure Problem No Grandstaff, Judy, CHIEF ACCOUNTANT Heart Failure Goal Care Plan Heart Failure Problem No Grandstaff, Judy, CHIEF ACCOUNTANT Heart Failure Goal Care Plan Heart Failure Problem No Grandstaff, Judy, CHIEF ACCOUNTANT Heart Failure Goal Care Plan Heart Failure Problem No Grandstaff, Judy, CHIEF ACCOUNTANT Heart Failure Goal Care Plan Heart Failure Problem No Grandstaff, Judy, CHIEF ACCOUNTANT Heart Failure Goal Care Plan Heart Failure Problem No Grandstaff, Judy, CHIEF ACCOUNTANT Heart Failure Goal Care Plan Heart Failure Problem No Grandstaff, Judy, CHIEF ACCOUNTANT Heart Failure Goal Care Plan Heart Failure Problem No Grandstaff, Judy, CHIEF ACCOUNTANT Heart Failure Goal Care Plan Heart Failure Problem No Grandstaff, Judy, CHIEF ACCOUNTANT Heart Failure Goal Care Plan Heart Failure Problem No Grandstaff, Judy, CHIEF ACCOUNTANT Heart Failure Goal Care Plan Heart Failure Problem No Mele, Peyton M, CHIEF ACCOUNTANT Heart Failure Goal Care Plan Heart Failure Problem No Cervantes, Azalia K, CHIEF ACCOUNTANT Heart Failure Goal Care Plan Heart Failure Problem No Cervantes, Azalia K, CHIEF ACCOUNTANT Heart Failure Goal Care Plan Heart Failure Problem No Mele, Peyton M, CHIEF ACCOUNTANT Heart Failure Goal Care Plan Heart Failure Problem No Mele, Peyton M, CHIEF ACCOUNTANT Heart Failure Goal Care Plan Heart Failure Problem No Mele, Peyton M, CHIEF ACCOUNTANT Heart Failure Goal Care Plan Heart Failure Problem No Mele, Peyton M, CHIEF ACCOUNTANT Heart Failure Goal Care Plan Heart Failure Problem No Mele, Peyton M, CHIEF ACCOUNTANT Heart Failure Goal Care Plan Heart Failure Problem No Mele, Peyton M, CHIEF ACCOUNTANT Heart Failure Goal Care Plan Heart Failure Problem No Mele, Peyton M, CHIEF ACCOUNTANT Heart Failure Goal Care Plan Heart Failure Problem No Mele, Peyton M, CHIEF ACCOUNTANT Heart Failure Goal Care Plan Heart Failure Problem No Mele, Peyton M, CHIEF ACCOUNTANT Heart Failure Goal Care Plan Heart Failure Problem No Mele, Peyton M, CHIEF ACCOUNTANT Heart Failure Goal Care Plan Heart Failure Problem No Mele, Peyton M, CHIEF ACCOUNTANT Heart Failure Goal Care Plan Heart Failure Problem No Mele, Peyton M, CHIEF ACCOUNTANT Heart Failure Goal Care Plan Heart Failure Problem No Mele, Peyton M, CHIEF ACCOUNTANT Heart Failure Goal Care Plan Heart Failure Problem No Mele, Peyton M, CHIEF ACCOUNTANT Heart Failure Goal Care Plan Heart Failure Problem No Mele, Peyton M, CHIEF ACCOUNTANT Heart Failure Goal Care Plan Heart Failure Problem No Mele, Peyton M, CHIEF ACCOUNTANT Heart Failure Goal Care Plan Heart Failure [...] Heart Failure Problem No Mele, Peyton M, CHIEF ACCOUNTANT Heart Failure Goal Care Plan Heart Failure Problem No Mele, Peyton M, CHIEF ACCOUNTANT Heart Failure Goal Care Plan Heart Failure Problem No Rachel Ceja RN Procedures Procedure Name Priority Date/Time Associated Diagnosis Comments COMPREHENSIVE METABOLIC PANEL Routine 09/07/2025 11:00 AM CDT COMPREHENSIVE METABOLIC PANEL Routine 07/19/2025 4:05 PM CDT COMPREHENSIVE METABOLIC PANEL Routine 07/16/2025 10:33 AM CDT XR DEXA BONE DENSITY AXIAL 1 OR MORE SITES Routine 10/30/2022 12:00 PM SOCK LINING EXAMINER Asymptomatic menopausal state from Last 3 Months or Most Recently Relevant to Health Maintenance Results * COMPREHENSIVE METABOLIC PANEL (09/07/2025 11:00 AM CDT) Only the most recent of3 resultswithin the time period is included. Blood us Abstract Provider CHEMISTRY ORDERABLES Final Res ult * XR DEXA BONE DENSITY AXIAL 1 OR MORE SITES (10/30/2022 12:00 PM SOCK LINING EXAMINER) T-SCORE SPINE 1.50 -1.0 - 1.0 INTER FACE SYSTEM T-SCORE HIP (LEFT) -1.60 -1.0 - 1.0 INTERFACE SYSTEM T-SCORE WRIST (LEFT) -1.10 -1.0 - 1.0 INTERFACE SYSTEM Anatomical Region Laterality Modality Digital Radiogra phy 10/30/2022 12:3 1 PM SOCK LINING EXAMINER Impressions 10/30/2022 1:25 PM SOCK LINING EXAMINER IMPRESSION: 1. Osteopenia. 2. Fracture risk 4 [...] captured in the FRAX model. www.shef.ac.uk/FRAX/. Enter [employer] for Select DXA and the Femoral Neck BMD value. Narrative 10/30/2022 1:25 PM SOCK LINING EXAMINER EXAM: XR DEXA BONE DENSITY AXIAL 1 OR MORE SITES DATE/TIME OF EXAM: 10/30/2022 12:00 PM REASON FOR STUDY: See Diagnosis DIAGNOSIS: Asymptomatic menopausal state COMPARISON: None TECHNIQUE: The bone mineral density (BMD) was determined using a dual-energy x-ray source (MetaSolv). Fracture risk is related to the absolute bone density and is therefore expressed as compared to a young gender-matched population sales promotion representative of the medial peak bone density. [...] was determined using a dual-energy x-ray source (MetaSolv). Fracture risk is related to the absolute bone density and is therefore expressed as compared to a young gender-matched population sales promotion representative of the medial peak bone density. [...] the Femoral Neck BMD value. us Amberly Lima BUCKRAM SEWER DIAGNOSTIC IMAGING ORDERABLES Fi nal Result from [...] 12/04/2024 Insurance MEDICARE PART A AND B [place] [id number] Advance Directives For more information, please contact: [phone] * Full Code (Latest Code Status on File) Date Activated Date Inactivated Comments 03/01/2025 12:49 AM 03/02/2025 7:58 PM Care Teams Leather Goods Maker Relationship Specialty Start Date End Date Jean Gibbons MD [address] [address] PCP - General Family Practice 04/09/18
--- OUTSIDE RECORDS SUMMARY | 2025-10-01 06:33 | XMS_ITS | Encounter Summary ---
Author Organization [facility] Address [address] [place] [address] Care Team Providers Care Cutter Inspector Name Role Phone Jean Gibbons MD Primary Care Provider [phone] [phone] Encounter Details Date Type Department Care Team (Latest Contact Info) Description 07/19/2004 Outpatient Historical [facility] Medicine [place] [address] [address] Lesley Ortega, TRIBAL DELEGATE [address] [place] [address] PNEUMONIA, ORGANISM NOS (Primary Dx) Social History Tobacco Use Types Packs/Day Years Used Date Smoking Tobacco: Never Assessed Comments Unknown Sex and Gender Information Value Date Recorded Sex Assigned at Not on file Legal Sex Female 4:08 AM TOE FORMER Gender Identity Not on file Sexual Orientation Not on file documented as of this encounter Plan of Treatment Not on file documented as of this encounter Visit Diagnoses Diagnosis Pneumonia, organism unspecified(486)- Primary Pneumonia, organism unspecified documented in this encounter Additional Health Concerns Infection Onset Date Last Indicated Resolved Time R/O COVID-19 10/21/2020 10/21/2020 10/28/2021 9:17 PM TOE FORMER documented as of this encounter Care Teams Cutter Inspector Relationship Specialty Start Date End Date Jean Gibbons MD [address] [phone] PCP - General Family Practice 04/09/18 documented as of this encounter
--- OUTSIDE RECORDS SUMMARY | 2025-10-01 06:34 | XMS_ITS | Encounter Summary ---
Author Organization [facility] Address [address] [place] [address] Care Team Providers Care Director Pharmacy Services Name Role Phone Jean Gibbons MD Primary Care Provider [phone] [phone] Encounter Details Date Type Department Care Team (Latest Contact Info) Description 10/28/1999 Outpatient Historical [facility] Endocrinology-[facility] [place] [address] [place] [address] Mine Tucker MD [address] [place] [address] Toxic uninodular goiter without mention of thyrotoxic crisis or storm (Primary Dx) Social History Tobacco Use Types Packs/Day Years Used Date Smoking Tobacco: Never Assessed Comments Unknown Sex and Gender Information Value Date Recorded Sex Assigned at Not on file Legal Sex Female 4:08 AM NURSE COORDINATOR Gender Identity Not on file Sexual Orientation Not on file documented as of this encounter Plan of Treatment Not on file documented as of this encounter Visit Diagnoses Diagnosis Toxic uninodular goiter without mention of thyrotoxic crisis or storm- Primary documented in this encounter Additional Health Concerns Infection Onset Date Last Indicated Resolved Time R/O COVID-19 10/21/2020 10/21/2020 10/28/2021 9:17 PM NURSE COORDINATOR documented as of this encounter Care Teams Director Pharmacy Services Relationship Specialty Start Date End Date Jean Gibbons MD [address] [place] [address] PCP - General Family Practice 04/09/18 documented as of this encounter
--- OUTSIDE RECORDS SUMMARY | 2025-10-01 06:34 | XMS_ITS | Encounter Summary ---
Author Organization [facility] Address [address] [place] [address] Care Team Providers Care Life Sciences Instructor Name Role Phone Jean Gibbons MD Primary Care Provider [phone] [phone] Encounter Details Date Type Department Care Team (Latest Contact Info) Description 07/11/2004 Outpatient Historical [facility] Medicine [place] [address] [address] Deanna Parada NP NO ADDRESS ON FILE ACUTE BRONCHITIS (Primary Dx); ACUTE PHARYNGITIS; ASTHMA UNSPECIFIED Social History Tobacco Use Types Packs/Day Years Used Date Smoking Tobacco: Never Assessed Comments Unknown Sex and Gender Information Value Date Recorded Sex Assigned at Not on file Legal Sex Female 4:08 AM FINANCIAL PROCESSING CLERK Gender Identity Not on file Sexual Orientation Not on file documented as of this encounter Plan of Treatment Not on file documented as of this encounter Visit Diagnoses Diagnosis Acute bronchitis- Primary Acute pharyngitis Unspecified asthma(493.90) Unspecified asthma documented in this encounter Additional Health Concerns Infection Onset Date Last Indicated Resolved Time R/O COVID-19 10/21/2020 10/21/2020 10/28/2021 9:17 PM FINANCIAL PROCESSING CLERK documented as of this encounter Care Teams Life Sciences Instructor Relationship Specialty Start Date End Date Jean Gibbons MD [address] [address] PCP - General Family Practice 04/09/18 documented as of this encounter
--- OUTSIDE RECORDS SUMMARY | 2025-10-01 06:34 | XMS_ITS | Encounter Summary ---
Author Organization [facility] Address [address] [place] [address] Care Team Providers Care Annealing Furnace Tender Name Role Phone Jean Gibbons MD Primary Care Provider [phone] [phone] Encounter Details Date Type Department Care Team (Latest Contact Info) Description 09/08/2004 Outpatient Historical [facility] Medicine [place] [address] [address] Lesley Ortega, PUBLIC HEALTH OUTREACH WORKER [address] [place] [address] Pneumococcal pneumonia (Primary Dx) Social History Tobacco Use Types Packs/Day Years Used Date Smoking Tobacco: Never Assessed Comments Unknown Sex and Gender Information Value Date Recorded Sex Assigned at Not on file Legal Sex Female 4:08 AM CHIEF UNDERWRITER Gender Identity Not on file Sexual Orientation Not on file documented as of this encounter Plan of Treatment Not on file documented as of this encounter Visit Diagnoses Diagnosis Pneumococcal pneumonia- Primary Pneumococcal pneumonia (streptococcus pneumoniae pneumonia) documented in this encounter Additional Health Concerns Infection Onset Date Last Indicated Resolved Time R/O COVID-19 10/21/2020 10/21/2020 10/28/2021 9:17 PM CHIEF UNDERWRITER documented as of this encounter Care Teams Annealing Furnace Tender Relationship Specialty Start Date End Date Jean Gibbons MD [address] [address] PCP - General Family Practice 04/09/18 documented as of this encounter
--- OUTSIDE RECORDS SUMMARY | 2025-10-01 06:34 | XMS_ITS | Encounter Summary ---
Author Organization [facility] Address [address] [place] [address] Care Team Providers Care Nail Assembly Machine Operator Name Role Phone Jean Gibbons MD Primary Care Provider [phone] [phone] Encounter Details Date Type Department Care Team (Latest Contact Info) Description 12/29/1999 Outpatient Historical [facility] Podiatry-[facility] [place] [address] [place] [address] David Bailey, DPM NO ADDRESS ON FILE Hallux valgus (Primary Dx) Social History Tobacco Use Types Packs/Day Years Used Date Smoking Tobacco: Never Assessed Comments Unknown Sex and Gender Information Value Date Recorded Sex Assigned at Not on file Legal Sex Female 4:08 AM BUILDING COORDINATOR Gender Identity Not on file Sexual Orientation Not on file documented as of this encounter Plan of Treatment Not on file documented as of this encounter Visit Diagnoses Diagnosis Hallux valgus- Primary Hallux valgus (acquired) documented in this encounter Additional Health Concerns Infection Onset Date Last Indicated Resolved Time R/O COVID-19 10/21/2020 10/21/2020 10/28/2021 9:17 PM BUILDING COORDINATOR documented as of this encounter Care Teams Nail Assembly Machine Operator Relationship Specialty Start Date End Date Jean Gibbons MD [address] [place] [address] PCP - General Family Practice 04/09/18 documented as of this encounter
--- OUTSIDE RECORDS SUMMARY | 2025-10-01 06:34 | XMS_ITS | Encounter Summary ---
Author Organization [facility] Address [address] [place] [address] Care Team Providers Care Food Safety Manager Name Role Phone Jean Gibbons MD Primary Care Provider [phone] [phone] Encounter Details Date Type Department Care Team (Latest Contact Info) Description 11/28/1999 Outpatient Historical [facility] Podiatry-[facility] [place] [address] [place] [address] David Bailey, DPM NO ADDRESS ON FILE Hallux valgus (Primary Dx) Social History Tobacco Use Types Packs/Day Years Used Date Smoking Tobacco: Never Assessed Comments Unknown Sex and Gender Information Value Date Recorded Sex Assigned at Not on file Legal Sex Female 4:08 AM OCCUPATIONAL MEDICINE OFFICER Gender Identity Not on file Sexual Orientation Not on file documented as of this encounter Plan of Treatment Not on file documented as of this encounter Visit Diagnoses Diagnosis Hallux valgus- Primary Hallux valgus (acquired) documented in this encounter Additional Health Concerns Infection Onset Date Last Indicated Resolved Time R/O COVID-19 10/21/2020 10/21/2020 10/28/2021 9:17 PM OCCUPATIONAL MEDICINE OFFICER documented as of this encounter Care Teams Food Safety Manager Relationship Specialty Start Date End Date Jean Gibbons MD [address] [place] [address] PCP - General Family Practice 04/09/18 documented as of this encounter
--- OUTSIDE RECORDS SUMMARY | 2025-10-01 06:34 | XMS_ITS | Encounter Summary ---
Author Organization [facility] Address [address] [place] [address] Care Team Providers Care Specialty Finishing Utility Person Name Role Phone Jean Gibbons MD Primary Care Provider [phone] [phone] Encounter Details Date Type Department Care Team (Latest Contact Info) Description 01/27/2000 Outpatient Historical [facility] Podiatry-[facility] [place] [address] [place] [address] David Bailey, DPM NO ADDRESS ON FILE Hallux valgus (Primary Dx) Social History Tobacco Use Types Packs/Day Years Used Date Smoking Tobacco: Never Assessed Comments Unknown Sex and Gender Information Value Date Recorded Sex Assigned at Not on file Legal Sex Female 4:08 AM BOILERMAKER FITTER Gender Identity Not on file Sexual Orientation Not on file documented as of this encounter Plan of Treatment Not on file documented as of this encounter Visit Diagnoses Diagnosis Hallux valgus- Primary Hallux valgus (acquired) documented in this encounter Additional Health Concerns Infection Onset Date Last Indicated Resolved Time R/O COVID-19 10/21/2020 10/21/2020 10/28/2021 9:17 PM BOILERMAKER FITTER documented as of this encounter Care Teams Specialty Finishing Utility Person Relationship Specialty Start Date End Date Jean Gibbons MD [address] [place] [address] PCP - General Family Practice 04/09/18 documented as of this encounter
--- OUTSIDE RECORDS SUMMARY | 2025-10-01 06:34 | XMS_ITS | Encounter Summary ---
Author Organization [facility] Address [address] [place] [address] Care Team Providers Care Roofing Subcontractor Name Role Phone Jean Gibbons MD Primary Care Provider [phone] [phone] Encounter Details Date Type Department Care Team (Latest Contact Info) Description 09/22/1999 Outpatient Historical [facility] Podiatry-[facility] [place] [address] [place] [address] David Bailey, DPM NO ADDRESS ON FILE Hallux valgus (Primary Dx) Social History Tobacco Use Types Packs/Day Years Used Date Smoking Tobacco: Never Assessed Comments Unknown Sex and Gender Information Value Date Recorded Sex Assigned at Not on file Legal Sex Female 4:08 AM FITNESS TEACHER Gender Identity Not on file Sexual Orientation Not on file documented as of this encounter Plan of Treatment Not on file documented as of this encounter Visit Diagnoses Diagnosis Hallux valgus- Primary Hallux valgus (acquired) documented in this encounter Additional Health Concerns Infection Onset Date Last Indicated Resolved Time R/O COVID-19 10/21/2020 10/21/2020 10/28/2021 9:17 PM FITNESS TEACHER documented as of this encounter Care Teams Roofing Subcontractor Relationship Specialty Start Date End Date Jean Gibbons MD [address] [place] [address] PCP - General Family Practice 04/09/18 documented as of this encounter
--- OUTSIDE RECORDS SUMMARY | 2025-10-01 06:34 | XMS_ITS | Encounter Summary ---
Author Organization [facility] Address [address] [place] [address] Care Team Providers Care Grain Thresher Name Role Phone Jean Gibbons MD Primary Care Provider [phone] [phone] Encounter Details Date Type Department Care Team (Late st Contact Info) Description 10/28/1999 Outpatient Historical [facility] Mine Tucker MD [address] [place] [address] Toxic uninodular goiter without mention of thyrotoxic crisis or storm (Primary Dx) Social History Tobacco Use Types Packs/Day Years Used Date Smoking Tobacco: Never Assessed Comments Unknown Sex and Gender Information Value Date Recorded Sex Assigned at Not on file Legal Sex Female 4:08 AM ENGINEERING TECHNICIAN Gender Identity Not on file Sexual [...] 10/21/2020 10/21/2020 10/28/2021 9:17 PM ENGINEERING TECHNICIAN documented as of this encounter Care Teams Grain Thresher Relationship Specialty Start Date End Date Jean Gibbons MD [address] [place] [address] PCP - General Family Practice 04/09/18 documented as of this encounter
--- OUTSIDE RECORDS SUMMARY | 2025-10-01 06:34 | XMS_ITS | Encounter Summary ---
Author Organization [facility] Address [address] [place]: Epic Prelude ADT [place] DAY [address] Care Team Providers Care Tank Cooper Name Role Phone Jean Gibbons MD Primary Care Provider +1 -[phone] Encounter Details Date Type Department Care Team (Late st Contact Info) Description 11/14/1999 Outpatient Historical David Bailey, DPM NO ADDRESS ON FILE Social History Tobacco Use Types Packs/Day Years Used Date Smoking Tobacco: Never Assessed Comments Unknown Sex and Gender Information Value Date Recorded Sex Assigned at Not on file Legal Sex Female 4:08 AM TITLE CAMERA OPERATOR Gender Identity Not on file Sexual Orientation Not on file documented as of this encounter Plan of Treatment Not on file documented as of this encounter Visit Diagnoses Not on filedocumented in this encounter Additional Health Concerns Infection Onset Date Last Indicated Resolved Time R/O COVID-19 10/21/2020 10/21/2020 10/28/2021 9:17 PM TITLE CAMERA OPERATOR documented as of this encounter Care Teams Tank Cooper Relationship Specialty Start Date End Date Jean Gibbons MD [address] [facility] [address] [place] [address] PCP - General Family Practice 04/09/18 documented as of this encounter
--- OUTSIDE RECORDS SUMMARY | 2025-10-01 06:34 | XMS_ITS | Encounter Summary ---
Author Organization [facility] Address [address] [place] [address] Care Team Providers Care Assistant Tennis Coach Name Role Phone Jean Gibbons MD Primary Care Provider +1 [phone] Encounter Details Date Type Department Care Team (Latest Contact Info) Description 03/15/2005 Outpatient Historical [facility] Medicine [place] [address] [address] Ben Winters DO NO ADDRESS ON FILE BACKACHE NOS (Primary Dx); HYPERTENSION NOS; ANXIETY STATE NOS Social History Tobacco Use Types Packs/Day Years Used Date Smoking Tobacco: Never Assessed Comments Unknown Sex and Gender Information Value Date Recorded Sex Assigned at Not on file Legal Sex Female 4:08 AM TREASURY MANAGEMENT SALES CONSULTANT Gender Identity Not on file Sexual Orientation Not on file documented as of this encounter Plan of Treatment Not on file documented as of this encounter Visit Diagnoses Diagnosis Backache, unspecified- Primary Unspecified essential hypertension Anxiety state, unspecified documented in this encounter Additional Health Concerns Infection Onset Date Last Indicated Resolved Time R/O COVID-19 10/21/2020 10/21/2020 10/28/2021 9:17 PM TREASURY MANAGEMENT SALES CONSULTANT documented as of this encounter Care Teams Assistant Tennis Coach Relationship Specialty Start Date End Date Jean Gibbons MD [address] [address] PCP - General Family Practice 04/09/18 documented as of this encounter
--- OUTSIDE RECORDS SUMMARY | 2025-10-01 06:34 | XMS_ITS | Encounter Summary ---
Author Organization [facility] Address [address] [place] [address] Care Team Providers Care Student Liaison Officer Name Role Phone Jean Gibbons MD Primary Care Provider +1 [phone] Encounter Details Date Type Department Care Team (Latest Contact Info) Description 08/12/2004 Outpatient Historical [facility] Medicine [place] [address] [address] Neo Aceves MD [address] [address] Vaccine for influenza (Primary Dx) Social History Tobacco Use Types Packs/Day Years Used Date Smoking Tobacco: Never Assessed Comments Unknown Sex and Gender Information Value Date Recorded Sex Assigned at Not on file Legal Sex Female 4:08 AM BUNK ASSEMBLER Gender Identity Not on file Sexual Orientation Not on file documented as of this encounter Plan of Treatment Not on file documented as of this encounter Visit Diagnoses Diagnosis Vaccine for influenza- Primary Need for prophylactic vaccination and inoculation against influenza documented in this encounter Additional Health Concerns Infection Onset Date Last Indicated Resolved Time R/O COVID-19 10/21/2020 10/21/2020 10/28/2021 9:17 PM BUNK ASSEMBLER documented as of this encounter Care Teams Student Liaison Officer Relationship Specialty Start Date End Date Jean Gibbons MD [address] [phone] PCP - General Family Practice 04/09/18 documented as of this encounter
--- OUTSIDE RECORDS SUMMARY | 2025-10-01 06:34 | XMS_ITS | Encounter Summary ---
Author Organization [facility] Address [address] [place] [address] Care Team Providers Care Legal Cashier Name Role Phone Jean Gibbons MD Primary Care Provider +1 [phone] Encounter Details Date Type Department Care Team (Latest Contact Info) Description 12/07/1999 Outpatient Historical [facility] Podiatry[facility] [place] [address] [place] [address] David Bailey, DPM NO ADDRESS ON FILE Hallux valgus (Primary Dx) Social History Tobacco Use Types Packs/Day Years Used Date Smoking Tobacco: Never Assessed Comments Unknown Sex and Gender Information Value Date Recorded Sex Assigned at Not on file Legal Sex Female 4:08 AM FRAME BANDER Gender Identity Not on file Sexual Orientation Not on file documented as of this encounter Plan of Treatment Not on file documented as of this encounter Visit Diagnoses Diagnosis Hallux valgus- Primary Hallux valgus (acquired) documented in this encounter Additional Health Concerns Infection Onset Date Last Indicated Resolved Time R/O COVID-19 10/21/2020 10/21/2020 10/28/2021 9:17 PM FRAME BANDER documented as of this encounter Care Teams Legal Cashier Relationship Specialty Start Date End Date Jean Gibbons MD [address] [place] [address] PCP - General Family Practice 04/09/18 documented as of this encounter
--- OUTSIDE RECORDS SUMMARY | 2025-10-01 06:34 | XMS_ITS | Encounter Summary ---
Author Organization [facility] Address [address] [place] [address] Care Team Providers Care Health And Human Performance Professor Name Role Phone Jean Gibbons MD Primary Care Provider +1 [phone] Encounter Details Date Type Department Care Team (Latest Contact Info) Description 03/02/2000 Outpatient Historical [facility] Endocrinology-Jl Gavino [place] [address] [place] [address] Mine Tucker MD [address] [place], [place] [id number] Thyrotoxicosis without mention of goiter or other cause, without mention of thyrotoxic crisis or storm (Primary Dx) Social History Tobacco Use Types Packs/Day Years Used Date Smoking Tobacco: Never Assessed Comments Unknown Sex and Gender Information Value Date Recorded Sex Assigned at Not on file Legal Sex Female 4:08 AM STEMHOLE BORER AND TOPPER Gender Identity Not on file Sexual Orientation [...] R/O COVID-19 10/21/2020 10/21/2020 10/28/2021 9:17 PM STEMHOLE BORER AND TOPPER documented as of this encounter Care Teams Health And Human Performance Professor Relationship Specialty Start Date End Date Jean Gibbons MD [address] [place] [address] PCP - General Family Practice 04/09/18 documented as of this encounter
--- OUTSIDE RECORDS SUMMARY | 2025-10-01 06:34 | XMS_ITS | Encounter Summary ---
Author Organization [facility] Address [address] [place] [address] Care Team Providers Care Hot Plate Plywood Press Operator Name Role Phone Jean Gibbons MD Primary Care Provider +1 [phone] Encounter Details Date Type Department Care Team (Latest Contact Info) Description 11/21/1999 Outpatient Historical [facility] Podiatry-[facility] [place] [address] [place] [address] David Bailey, DPM NO ADDRESS ON FILE Hallux valgus (Primary Dx) Social History Tobacco Use Types Packs/Day Years Used Date Smoking Tobacco: Never Assessed Comments Unknown Sex and Gender Information Value Date Recorded Sex Assigned at Not on file Legal Sex Female 4:08 AM CERTIFIED PROSTHETIST Gender Identity Not on file Sexual Orientation Not on file documented as of this encounter Plan of Treatment Not on file documented as of this encounter Visit Diagnoses Diagnosis Hallux valgus- Primary Hallux valgus (acquired) documented in this encounter Additional Health Concerns Infection Onset Date Last Indicated Resolved Time R/O COVID-19 10/21/2020 10/21/2020 10/28/2021 9:17 PM CERTIFIED PROSTHETIST documented as of this encounter Care Teams Hot Plate Plywood Press Operator Relationship Specialty Start Date End Date Jean Gibbons MD [address] [place] [address] PCP - General Family Practice 04/09/18 documented as of this encounter
--- OUTSIDE RECORDS SUMMARY | 2025-10-01 06:34 | XMS_ITS | Encounter Summary ---
Author Organization [facility] Address [address] [place] [address] Care Team Providers Care Field Sales Engineer Name Role Phone eJan Gibbons MD Primary Care Provider +1 [phone] Encounter Details Date Type Department Care Team (Latest Contact Info) Description 09/20/2004 Outpatient Historical [facility] Medicine [place] [address] [address] Ben Winters DO NO ADDRESS ON FILE BACKACHE NOS (Primary Dx); ASTHMA UNSPECIFIED; HYPERTENSION NOS Social History Tobacco Use Types Packs/Day Years Used Date Smoking Tobacco: Never Assessed Comments Unknown Sex and Gender Information Value Date Recorded Sex Assigned at Not on file Legal Sex Female 4:08 AM ONBOARDING SPECIALIST Gender Identity Not on file Sexual Orientation Not on file documented as of this encounter Plan of Treatment Not on file documented as of this encounter Visit Diagnoses Diagnosis Backache, unspecified- Primary Unspecified asthma(493.90) Unspecified asthma Unspecified essential hypertension documented in this encounter Additional Health Concerns Infection Onset Date Last Indicated Resolved Time R/O COVID-19 10/21/2020 10/21/2020 10/28/2021 9:17 PM ONBOARDING SPECIALIST documented as of this encounter Care Teams Field Sales Engineer Relationship Specialty Start Date End Date Jean Gibbons MD [address] [address] PCP - General Family Practice 04/09/18 documented as of this encounter
--- OUTSIDE RECORDS SUMMARY | 2025-10-01 06:34 | XMS_ITS | Encounter Summary ---
Author Organization [facility] Address [address] [place] [address] Care Team Providers Care Slip Cover Operator Name Role Phone Jean Gibbons MD Primary Care Provider +1 [phone] Encounter Details Date Type Department Care Team (Latest Contact Info) Description 09/13/2004 Outpatient Historical [facility] Medicine [place] [address] [address] Lesley Ortega, DOCUMENT COORDINATOR [address] [place] [address] ACUTE URI NOS (Primary Dx) Social History Tobacco Use Types Packs/Day Years Used Date Smoking Tobacco: Never Assessed Comments Unknown Sex and Gender Information Value Date Recorded Sex Assigned at Not on file Legal Sex Female 4:08 AM DATABASE DBA Gender Identity Not on file Sexual Orientation Not on file documented as of this encounter Plan of Treatment Not on file documented as of this encounter Visit Diagnoses Diagnosis Acute upper respiratory infections of unspecified site- Primary documented in this encounter Additional Health Concerns Infection Onset Date Last Indicated Resolved Time R/O COVID-19 10/21/2020 10/21/2020 10/28/2021 9:17 PM DATABASE DBA documented as of this encounter Care Teams Slip Cover Operator Relationship Specialty Start Date End Date Jean Gibbons MD [address] [address] PCP - General Family Practice 04/09/18 documented as of this encounter
--- OUTSIDE RECORDS SUMMARY | 2025-10-01 06:35 | XMS_ITS | Encounter Summary ---
Author Organization [facility] Address [address] [place] [address] Care Team Providers Care Intellectual Property Paralegal Name Role Phone Jean Gibbons MD Primary Care Provider +1 -[phone] Encounter Details Date Type Department Care Team (Late st Contact Info) Description 09/10/1998 Outpatient Historical [facility] Neurology [address] [place] [address] Nicolas Oviedo MD [address] [place] [address] Carpal tunnel syndrome (Primary Dx) Social History Tobacco Use Types Packs/Day Years Used Date Smoking Tobacco: Never Assessed Comments Unknown Sex and Gender Information Value Date Recorded Sex Assigned at Not on file Legal Sex Female 4:08 AM SHIPPING SPECIALIST Gender Identity Not on file Sexual Orientation Not on file documented as of this encounter Plan of Treatment Not on file documented as of this encounter Visit Diagnoses Diagnosis Carpal tunnel syndrome- Primary documented in this encounter Additional Health Concerns Infection Onset Date Last Indicated Resolved Time R/O COVID-19 10/21/2020 10/21/2020 10/28/2021 9:17 PM SHIPPING SPECIALIST documented as of this encounter Care Teams Intellectual Property Paralegal Relationship Specialty Start Date End Date Jean Gibbons MD [address] [place] [address] PCP - General Family Practice 04/09/18 documented as of this encounter
--- OUTSIDE RECORDS SUMMARY | 2025-10-01 06:35 | XMS_ITS | Encounter Summary ---
Author Organization [facility] Address [address] [place] [address] Care Team Providers Care Behavioral Sciences Department Chair Name Role Phone Jean Gibbons MD Primary Care Provider +1 -[phone] Encounter Details Date Type Department Care Team (Latest Contact Info) Description 06/09/1998 Outpatient Historical [facility] Endocrinology-Psychiatric [place] [address] [place] [address] Mine Tucker MD [address] [place], [place] [address] Nonspecific abnormal results of other endocrine function study (Primary Dx) Social History Tobacco Use Types Packs/Day Years Used Date Smoking Tobacco: Never Assessed Comments Unknown Sex and Gender Information Value Date Recorded Sex Assigned at Not on file Legal Sex Female 4:08 AM MANAGER PRESENTATION Gender Identity Not on file Sexual Orientation Not on file documented as of this encounter Plan of Treatment Not on file documented as of this encounter Visit Diagnoses Diagnosis Nonspecific abnormal results of other endocrine function study- Primary documented in this encounter Additional Health Concerns Infection Onset Date Last Indicated Resolved Time R/O COVID-19 10/21/2020 10/21/2020 10/28/2021 9:17 PM MANAGER PRESENTATION documented as of this encounter Care Teams Behavioral Sciences Department Chair Relationship Specialty Start Date End Date Jean Gibbons MD [address] [place] [address] PCP - General Family Practice 04/09/18 documented as of this encounter
--- OUTSIDE RECORDS SUMMARY | 2025-10-01 06:35 | XMS_ITS | Encounter Summary ---
Author Organization [facility] Address [address] [place] [address] Care Team Providers Care Roasterman Name Role Phone Jean Gibbons MD Primary Care Provider +1 -[phone] Encounter Details Date Type Department Care Team (Latest Contact Info) Description 08/27/2006 Outpatient Historical [facility] Medicine [place] [address] [address] Ben Winters DO NO ADDRESS ON FILE Vaccine for influenza (Primary Dx) Social History Tobacco Use Types Packs/Day Years Used Date Smoking Tobacco: Never Assessed Comments Unknown Sex and Gender Information Value Date Recorded Sex Assigned at Not on file Legal Sex Female 4:08 AM PHYSICIAN CODER Gender Identity Not on file Sexual Orientation Not on file documented as of this encounter Plan of Treatment Not on file documented as of this encounter Visit Diagnoses Diagnosis Vaccine for influenza- Primary Need for prophylactic vaccination and inoculation against influenza documented in this encounter Additional Health Concerns Infection Onset Date Last Indicated Resolved Time R/O COVID-19 10/21/2020 10/21/2020 10/28/2021 9:17 PM PHYSICIAN CODER documented as of this encounter Care Teams Roasterman Relationship Specialty Start Date End Date Jean Gibbons MD [address] [address] PCP - General Family Practice 04/09/18 documented as of this encounter
--- OUTSIDE RECORDS SUMMARY | 2025-10-01 06:35 | XMS_ITS | Encounter Summary ---
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
--- OUTSIDE RECORDS SUMMARY | 2025-10-01 06:35 | XMS_ITS | Encounter Summary ---
Author Organization [facility] Address [address] [place] [address] Care Team Providers Care Junior Architect Name Role Phone Jean Gibbons MD Primary Care Provider +1 [phone] Encounter Details Date Type Department Care Team (Latest Contact Info) Description 05/14/2006 Outpatient Historical [facility] Medicine [place] [address] [address] Ben Winters DO NO ADDRESS [...] file Legal Sex Female 4:08 AM ASSOCIATE FACULTY Gender Identity Not on file Sexual Orientation [...] COVID-19 10/21/2020 10/21/2020 10/28/2021 9:17 PM ASSOCIATE FACULTY documented as of this encounter Care Teams Junior Architect Relationship Specialty Start Date End Date Jean Gibbons MD [address] [address] PCP - General Family Practice 04/09/18 documented as of this encounter
--- OUTSIDE RECORDS SUMMARY | 2025-10-01 06:35 | XMS_ITS | Encounter Summary ---
Author Organization [facility] Address [address] [place] [address] Care Team Providers Care Bus Operator Name Role Phone Jean Gibbons MD Primary Care Provider +1 [phone] Reason for Referral * Radiology Services (Routine) - Closed Specialty Diagnoses / Procedures Referred By Contac t Referred To Contact Diagnoses Abnormal mammogram Procedures MAMMO DIAG BILAT 3D SHAI W OR WO CAD MAMMO DIAGNOSTIC BILATERAL W OR WO CAD CHG DIAGNOSTIC MAMMOGRAPHY COMPUTER-AIDED DETCJ BI CHG DIGITAL BREAST TOMOSYNTHESIS BILATERAL Amberly Lima FNP Phone: tel: fax: [facility] Pre-Registration [place] CALL TO MAKE APPOINTMENT ONLY [address] [place] [address] Phone: tel: fax: Referral ID Status Reason Start Date Expiration Date Visits Re quested Visits Authorized [id number] Closed 02/24/2019 03/26/2020 1 1 Encounter Details Date Type Department Care Team (Late st Contact Info) Description 04/10/2019 Ancillary Orders [facility] [address] [address] [address] Amberly Lima FNP [address] [place] [phone] Abnormal mammogram Social History Tobacco Use Types Packs/Day Years Used Date Smoking Tobacco: Former Cigarettes 0 Q uit: 08/12/1990 Smokeless Tobacco: Never Comments:quit in the Alcohol Use Standard Drinks/Week Comments No 0 (1 standard drink = 0.6 oz pur e alcohol) Comments No Sex and Gender Information Value Date Recorded Sex Assigned at Not on file Legal Sex Female 4:08 AM MATCH MARKER Gender Identity Not on file Sexual Orientation [...] RECOMMENDATIONS: Bilateral diagnostic mammogram in one year. [id number] Procedure Note Edgardo Ambrose MD - 04/16/2019 [...] RECOMMENDATIONS: Bilateral diagnostic mammogram in one year. [id number] Amberly Lima SUSTAINABILITY COACH MAMMO ORDERABLES Final Result documented in this encounter Visit Diagnoses Diagnosis Abnormal mammogram Abnormal mammogram, unspecified Abnormal mammogram Abnormal mammogram, unspecified documented in this encounter Additional Health Concerns Infection Onset Date Last Indicated Resolved Time R/O COVID-19 10/21/2020 10/21/2020 10/28/2021 9:17 PM MATCH MARKER Assessment Noted Time PHQ-9 Depression Total Score: 1 01/24/20 19 10:00 AM CDT documented as of this encounter Care Teams Bus Operator Relationship Specialty Start Date End Date Jean Gibbons MD [address] [phone] PCP - General Family Practice 04/09/18 documented as of this encounter
--- OUTSIDE RECORDS SUMMARY | 2025-10-01 06:35 | XMS_ITS | Encounter Summary ---
Author Organization [facility] Address [address] [place] [address] Care Team Providers Care Soft Mud Molder Name Role Phone Jean Gibbons MD Primary Care Provider +1 -[phone] Encounter Details Date Type Department Care Team (Latest Contact Info) Description 07/08/1998 Outpatient Historical [facility] Nuclear Med Services-Miki Mancia [place] [address] [address] Nicolas Huntley MD [address] [place] [address] Nonspecific abnormal results of other endocrine function study (Primary Dx) Social History Tobacco Use Types Packs/Day Years Used Date Smoking Tobacco: Never Assessed Comments Unknown Sex and Gender Information Value Date Recorded Sex Assigned at Not on file Legal Sex Female 4:08 AM CENTRAL SCHEDULER Gender Identity Not on file Sexual Orientation Not on file documented as of this encounter Plan of Treatment Not on file documented as of this encounter Visit Diagnoses Diagnosis Nonspecific abnormal results of other endocrine function study- Primary documented in this encounter Additional Health Concerns Infection Onset Date Last Indicated Resolved Time R/O COVID-19 10/21/2020 10/21/2020 10/28/2021 9:17 PM CENTRAL SCHEDULER documented as of this encounter Care Teams Soft Mud Molder Relationship Specialty Start Date End Date Jean Gibbons MD [address] [facility] [address] [place] [address] PCP - General Family Practice 04/09/18 documented as of this encounter
--- OUTSIDE RECORDS SUMMARY | 2025-10-01 06:35 | XMS_ITS | Encounter Summary ---
Author Organization [facility] Address [address] [place] [address] Care Team Providers Care Disability Attorney Name Role Phone Jean Gibbons MD Primary Care Provider +1 [phone] Encounter Details Date Type Department Care Team (Latest Contact Info) Description 11/26/[address] [facility] Endocrinology-Jl Gavino [place] [address] [place] [address] Mine Tucker MD [address] [place], [place] [id number] Thyrotoxicosis without mention of goiter or other cause, without mention of thyrotoxic crisis or storm (Primary Dx) Social History Tobacco Use Types Packs/Day Years Used Date Smoking Tobacco: Never Assessed Comments Unknown Sex and Gender Information Value Date Recorded Sex Assigned at Not on file Legal Sex Female 4:08 AM LOAD TEST MECHANIC Gender Identity Not on file Sexual [...] R/O COVID-19 10/21/2020 10/21/2020 10/28/2021 9:17 PM LOAD TEST MECHANIC documented as of this encounter Care Teams Disability Attorney Relationship Specialty Start Date End Date Jean Gibbons MD [address] [place] [address] PCP - General Family Practice 04/09/18 documented as of this encounter
--- OUTSIDE RECORDS SUMMARY | 2025-10-01 06:35 | XMS_ITS | Encounter Summary ---
Author Organization [facility] Address [address] [place] [address] Care Team Providers Care Lathe Spotter Name Role Phone Jean Gibbons MD Primary Care Provider +1 [phone] Encounter Details Date Type Department Care Team (Late st Contact Info) Description 08/31/1998 Outpatient Historical [facility] Neurology [address], [address] [place] [address] Nicolas Oviedo MD [address] [place] [id number] Pain in limb (Primary Dx) Social History Tobacco Use Types Packs/Day Years Used Date Smoking Tobacco: Never Assessed Comments Unknown Sex and Gender Information Value Date Recorded Sex Assigned at Not on file Legal Sex Female 4:08 AM LANDSCAPE DESIGNER Gender Identity Not on file Sexual Orientation Not on file documented as of this encounter Plan of Treatment Not on file documented as of this encounter Visit Diagnoses Diagnosis Pain in limb- Primary Pain in soft tissues of limb documented in this encounter Additional Health Concerns Infection Onset Date Last Indicated Resolved Time R/O COVID-19 10/21/2020 10/21/2020 10/28/2021 9:17 PM LANDSCAPE DESIGNER documented as of this encounter Care Teams Lathe Spotter Relationship Specialty Start Date End Date Jean Gibbons MD [address] [place] [address] PCP - General Family Practice 04/09/18 documented as of this encounter
--- OUTSIDE RECORDS SUMMARY | 2025-10-01 06:35 | XMS_ITS | Encounter Summary ---
Author Organization [facility] Address [address] [place] [address] Care Team Providers Care Song And Dance Performer Name Role Phone Jean Gibbons MD Primary Care Provider +1 [phone] Encounter Details Date Type Department Care Team (Latest Contact Info) Description 07/03/2006 Outpatient Historical [facility] Medicine [place] [address] [address] Ben Winters DO NO ADDRESS ON FILE Unspecified Backache (Primary Dx); Unspecified Essential Hypertension; Generalized Osteoarthrosis, Involving Multiple Sites Social History Tobacco Use Types Packs/Day Years Used Date Smoking Tobacco: Never Assessed Comments Unknown Sex and Gender Information Value Date Recorded Sex Assigned at Not on file Legal Sex Female 4:08 AM SENIOR ESCROW OFFICER Gender Identity Not on file Sexual Orientation Not on file documented as of this encounter Plan of Treatment Not on file documented as of this encounter Visit Diagnoses Diagnosis Backache, unspecified- Primary Unspecified essential hypertension Generalized osteoarthrosis, involving multiple sites documented in this encounter Additional Health Concerns Infection Onset Date Last Indicated Resolved Time R/O COVID-19 10/21/2020 10/21/2020 10/28/2021 9:17 PM SENIOR ESCROW OFFICER documented as of this encounter Care Teams Song And Dance Performer Relationship Specialty Start Date End Date Jean Gibbons MD [address] [address] PCP - General Family Practice 04/09/18 documented as of this encounter
--- OUTSIDE RECORDS SUMMARY | 2025-10-01 06:35 | XMS_ITS | Encounter Summary ---
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
--- OUTSIDE RECORDS SUMMARY | 2025-10-01 06:35 | XMS_ITS | Encounter Summary ---
Author Organization [facility] Address [address] [place] [address] Care Team Providers Care Pickle Sorter Name Role Phone Jean Gibbons MD Primary Care Provider +1 [phone] Encounter Details Date Type Department Care Team (Latest Contact Info) Description 01/17/[address] [facility] Medicine [place] [address] [address] Ben Winters DO NO ADDRESS ON FILE Open Wound of Foot (Primary Dx) Social History Tobacco Use Types Packs/Day Years Used Date Smoking Tobacco: Never Assessed Comments Unknown Sex and Gender Information Value Date Recorded Sex Assigned at Not on file Legal Sex Female 4:08 AM TODDLER CAREGIVER Gender Identity Not on file Sexual Orientation Not on file documented as of this encounter Plan of Treatment Not on file documented as of this encounter Visit Diagnoses Diagnosis Open wound of foot except toe(s) alone, without mention of complication- Primary documented in this encounter Additional Health Concerns Infection Onset Date Last Indicated Resolved Time R/O COVID-19 10/21/2020 10/21/2020 10/28/2021 9:17 PM TODDLER CAREGIVER documented as of this encounter Care Teams Pickle Sorter Relationship Specialty Start Date End Date Jean Gibbnos MD [address] [address] PCP - General Family Practice 04/09/18 documented as of this encounter
--- OUTSIDE RECORDS SUMMARY | 2025-10-01 06:35 | XMS_ITS | Encounter Summary ---
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) Social History Tobacco Use Types Packs/Day Years Used Date Smoking Tobacco: Never Assessed Comments Unknown Sex and Gender Information Value Date Recorded Sex Assigned at Not on file Legal Sex Female 4:08 AM 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
--- OUTSIDE RECORDS SUMMARY | 2025-10-01 06:35 | XMS_ITS | Encounter Summary ---
Author Organization [facility] Address [address] [place]: [place] [address] Care Team Providers Care Automotive Buyer Name Role Phone Jean Gibbons MD Primary Care Provider [phone] [phone] Encounter Details Date Type Department Care Team (Late st Contact Info) Description 10/28/1999 Outpatient Historical Mine Tucker MD [address] [place], [place] [address] Social History Tobacco Use Types Packs/Day Years Used Date Smoking Tobacco: Never Assessed Comments Unknown Sex and Gender Information Value Date Recorded Sex Assigned at Not on file Legal Sex Female 4:08 AM [employer] Gender Identity Not on file Sexual Orientation Not on file documented as of this encounter Plan of Treatment Not on file documented as of this encounter Visit Diagnoses Not on filedocumented in this encounter Additional Health Concerns Infection Onset Date Last Indicated Resolved Time R/O COVID-19 10/21/2020 10/21/2020 10/28/2021 9:17 PM [employer] documented as of this encounter Care Teams Automotive Buyer Relationship Specialty Start Date End Date Jean Gibbons MD [address] [place] [address] PCP - General Family Practice 04/09/18 documented as of this encounter
--- OUTSIDE RECORDS SUMMARY | 2025-10-01 06:35 | XMS_ITS | Encounter Summary ---
Author Organization [facility] Address [address] [place] [address] Care Team Providers Care Public Relations Director Name Role Phone Jean Gibbons MD Primary Care Provider [phone] [phone] Encounter Details Date Type Department Care Team (Latest Contact Info) Description 07/29/1999 Outpatient Historical [facility] Podiatry-[facility] [place] [address] [place] [address] David Bailey, DPM NO ADDRESS ON FILE Hallux valgus (Primary Dx) Social History Tobacco Use Types Packs/Day Years Used Date Smoking Tobacco: Never Assessed Comments Unknown Sex and Gender Information Value Date Recorded Sex Assigned at Not on file Legal Sex Female 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 Gender Identity Not on file Sexual Orientation Not on file documented as of this encounter Plan of Treatment Not on file documented as of this encounter Visit Diagnoses Diagnosis Hallux valgus- Primary Hallux valgus (acquired) documented in this encounter Additional Health Concerns Infection Onset Date Last Indicated Resolved Time R/O COVID-19 10/21/2020 10/21/2020 10/28/2021 9:17 PM ENCODING MACHINE OPERATOR documented as of this encounter Care Teams Public Relations Director Relationship Specialty Start Date End Date Jean Gibbons MD [address] [place] [address] PCP - General Family Practice 04/09/18 documented as of this encounter
--- OUTSIDE RECORDS SUMMARY | 2025-10-01 06:35 | XMS_ITS | Encounter Summary ---
Author Organization [facility] Address [address] [place] [address] Care Team Providers Care Acquisition Marketing Manager Name Role Phone Jean Gibbons MD Primary Care Provider [phone] [phone] Encounter Details Date Type Department Care Team (Latest Contact Info) Description 01/11/2007 Outpatient Historical [facility] Medicine [place] [address] [address] Ben Winters DO NO ADDRESS ON FILE Other Affections of Shoulder Region, not Elsewhere Classified (Primary Dx) Social History Tobacco Use Types Packs/Day Years Used Date Smoking Tobacco: Never Assessed Comments Unknown Sex and Gender Information Value Date Recorded Sex Assigned at Not on file Legal Sex Female 4:08 AM TOOL HARDENER Gender Identity Not on file Sexual Orientation Not on file documented as of this encounter Plan of Treatment Not on file documented as of this encounter Visit Diagnoses Diagnosis Other affections of shoulder region, not elsewhere classified- Primary documented in this encounter Additional Health Concerns Infection Onset Date Last Indicated Resolved Time R/O COVID-19 10/21/2020 10/21/2020 10/28/2021 9:17 PM TOOL HARDENER documented as of this encounter Care Teams Acquisition Marketing Manager Relationship Specialty Start Date End Date Jean Gibbons MD [address] [address] PCP - General Family Practice 04/09/18 documented as of this encounter
--- OUTSIDE RECORDS SUMMARY | 2025-10-01 06:35 | XMS_ITS | Encounter Summary ---
Author Organization [facility] Address [address] [place] [address] Care Team Providers Care Probation Supervisor Name Role Phone Jean Gibbons MD Primary Care Provider +1 [phone] Encounter Details Date Type Department Care Team (Late st Contact Info) Description 11/26/1998 Outpatient Historical [facility] Imaging Services-[place]av[place] Diallo [address] [place] [address] Alberto Glass MD [address] [place] [address] Periostitis, without mention of osteomyelitis, unspecified site (CMS/HCC) (Primary Dx) Social History Tobacco Use Types Packs/Day Years Used Date Smoking Tobacco: Never Assessed Comments Unknown Sex and Gender Information Value Date Recorded Sex Assigned at Not on file Legal Sex Female 4: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
--- OUTSIDE RECORDS SUMMARY | 2025-10-01 06:35 | XMS_ITS | Encounter Summary ---
Author Organization [facility] Address [address] [place] [address] Care Team Providers Care Journalism Professor Name Role Phone Jean Gibbons MD Primary Care Provider [phone] [phone] Encounter Details Date Type Department Care Team (Latest Contact Info) Description 07/08/1998 Outpatient Historical [facility] Endocrinology-[facility] [place] [address] [place] [address] Mine Tucker MD [address] [place], [place] [address] Nonspecific abnormal results of other endocrine function study (Primary Dx) Social History Tobacco Use Types Packs/Day Years Used Date Smoking Tobacco: Never Assessed Comments Unknown Sex and Gender Information Value Date Recorded Sex Assigned at Not on file Legal Sex Female 4:08 AM CONFERENCE TRANSLATOR Gender Identity Not on file Sexual Orientation Not on file documented as of this encounter Plan of Treatment Not on file documented as of this encounter Visit Diagnoses Diagnosis Nonspecific abnormal results of other endocrine function study- Primary documented in this encounter Additional Health Concerns Infection Onset Date Last Indicated Resolved Time R/O COVID-19 10/21/2020 10/21/2020 10/28/2021 9:17 PM CONFERENCE TRANSLATOR documented as of this encounter Care Teams Journalism Professor Relationship Specialty Start Date End Date Jean Gibbons MD [address] [place] [address] PCP - General Family Practice 04/09/18 documented as of this encounter
--- OUTSIDE RECORDS SUMMARY | 2025-10-01 06:35 | XMS_ITS | Encounter Summary ---
Author Organization [facility] Address [address] [place] [address] Care Team Providers Care Railway Signalling Engineer Name Role Phone Jean Gibbons MD Primary Care Provider +1 [phone] Encounter Details Date Type Department Care Team (Late st Contact Info) Description 03/16/2020 Ancillary Orders [facility] [address] [place] [address] Jean Gibbons MD [address] [place] [address] Abnormal mammogram Social History Tobacco Use Types Packs/Day Years Used Date Smoking Tobacco: Former Cigarettes 0 Q uit: 08/12/1990 Smokeless Tobacco: Never Comments:quit in the Alcohol Use Standard Drinks/Week Comments No 0 (1 standard drink = 0.6 oz pur e alcohol) Comments No Sex and Gender Information Value Date Recorded Sex Assigned at Not on file Legal Sex Female 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
--- OUTSIDE RECORDS SUMMARY | 2025-10-01 06:35 | XMS_ITS | Encounter Summary ---
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 storm (Primary Dx) Social History Tobacco Use Types Packs/Day Years Used Date Smoking Tobacco: Never Assessed Comments Unknown Sex and Gender Information Value Date Recorded Sex Assigned at Not on file Legal Sex Female 4:08 AM CIGARETTE ROLLER Gender Identity Not on file Sexual Orientation Not on file documented as of this encounter Plan of Treatment Not on file documented as of this encounter Visit Diagnoses Diagnosis Toxic uninodular goiter without mention of thyrotoxic crisis or storm- Primary documented in this encounter Additional Health Concerns Infection Onset Date Last Indicated Resolved Time R/O COVID-19 10/21/2020 10/21/2020 10/28/2021 9:17 PM CIGARETTE ROLLER documented as of this encounter Care Teams Fitness Manager Relationship Specialty Start Date End Date Jean Gibbons MD [address] [place] [address] PCP - General Family Practice 04/09/18 documented as of this encounter
--- NOTE | 2025-10-01 06:37 | XR_ITS ---
WS: [id number] XR chest 1V portable [id number] REASON FOR EXAM: Pleuritic chest pain FINDINGS: The chest is unchanged compared to 07/16/2025. Moderate tortuosity and ectasia of the ascending and descending thoracic aorta with calcified arch. Normal heart size. Calcified granulomas disease bilaterally. No acute pulmonary parenchymal or pleural abnormality. Probable bilateral complete rotator cuff tears. Mild mild thoracolumbar dextro scoliosis with moderate degenerative spondylosis. XR/XR chest 1V portable [id number] IMPRESSION: Stable chest without acute abnormality.
--- NOTE | 2025-10-01 06:37 | XR_ITS ---
WS: [id number] XR thoracic spine 3V* [id number] REASON FOR EXAM: Pain FINDINGS: Moderate thoracolumbar dextroscoliosis. Significant degenerative spondylosis with joint space narrowing and endplate sclerosis and osteophytosis in the mid and lower thoracic spine. No acute compression deformity identified. XR/XR thoracic spine 3V* [id number] IMPRESSION: Scoliosis and degenerative spondylosis. No acute abnormality.
--- NOTE | 2025-10-01 06:38 | W.ED.GENADLT ---
Documented by User: Tapan Butt DO 10/02/25 06:13 HPI - General Adult General: Chief complaint: General Medical Stated complaint: R shoulder pain, rectal bleeding Time Seen by Provider: 10/01/25 06:25 History of Present Illness: 80-year-old female presents emergency room complaining of right posterior shoulder pain worse with movement began this morning when she woke up. She also had a little bit of rectal bleeding. She has had anemia in the past had a Pretty extensive workup earlier this year in March when she was hospitalized never had any definitive finding. She had a bone marrow which myelodysplastic syndrome. She has been seeing oncology for this. She has a history of atrial fibrillation she was previously on Eliquis and in March of this year when she had the episode of anemia the Eliquis was stopped. She has not had any lightheadedness or dizziness. Most of her pain localizes to the medial edge of the right scapula. No recent falls or trauma or heavy lifting. She denies any shortness of breath. No specific chest pain pain is worse with palpation and movement to her back there is no real pain at the shoulder with movement of the right arm. Associated symptoms: Deny chest pain, dyspnea or rash Related Data Home Medications ?Medication ?Instructions ?Recorded ?Confirmed fluticasone propionate 50 2 spray intranasal DAILY 08/24/20 10/01/25 mcg/actuation nasal spray,suspension (Flonase Allergy Relief) hydroxyzine HCl 25 mg tablet 25 mg PO TID PRN Anxiety 08/24/20 10/01/25 propylthiouracil 50 mg tablet 50 mg PO TID 08/24/20 10/01/25 tramadol 50 mg tablet 50 mg PO Q8H PRN Pain 08/24/20 10/01/25 multivitamin 1 tab PO DAILY 11/07/21 10/01/25 bupropion HCl 150 mg 24 hr tablet, 150 mg PO BID 04/30/24 10/01/25 extended release cranberry fruit 200 mg-dandelion 1 cap PO DAILY 04/04/25 10/01/25 50 mg-goldenseal 20 mg-herbs capsule (Urinary Cranberry Blend) ondansetron 4 mg disintegrating 4 mg PO Q8H PRN Nausea And Vomiting 04/04/25 10/01/25 tablet vitamin B complex 1 tab PO DAILY 04/04/25 10/01/25 aspirin 81 mg tablet 81 mg PO DAILY 07/14/25 10/01/25 amiodarone 200 mg tablet 200 mg PO DAILY 10/01/25 10/01/25 apixaban 5 mg tablet (Eliquis) 5 mg PO BID 10/01/25 10/01/25 clonidine HCl 0.1 mg tablet 0.1 mg PO TID PRN high blood 10/01/25 10/01/25 pressure hydrochlorothiazide 12.5 mg capsule 12.5 mg PO DAILY 10/01/25 10/01/25 metoprolol tartrate 50 mg tablet 50 mg PO BID 10/01/25 10/01/25 tizanidine 2 mg tablet 2 mg PO BID 10/01/25 10/01/25 Previous Rx's ?Medication ?Instructions ?Recorded custom inserts #1 ea 02/22/24 potassium chloride 8 mEq 8 meq PO DAILY #90 tabs 06/29/25 tablet,extended release (Klor-Con) amlodipine 10 mg tablet 10 mg PO DAILY #30 tabs 07/17/25 losartan 100 mg tablet 100 mg PO DAILY 30 days #30 tabs 07/19/25 furosemide 20 mg tablet (Lasix) 20 mg PO DAILY PRN sob #90 tabs 08/25/25 Allergies Allergy/AdvReac Type Severity Reaction Status Date / Time Alpha-Gal Allergy Unknown Verified 10/01/25 06:44 (Oafomzeel-Rhlmg-1,3-Gala citalopram (From Celexa) Allergy NA Verified 10/01/25 06:44 clarithromycin Allergy NA Verified 10/01/25 06:44 clindamycin Allergy NA Verified 10/01/25 06:44 doxepin Allergy NA Verified 10/01/25 06:44 hydrocodone Allergy NA Verified 10/01/25 06:44 ibuprofen Allergy NA Verified 10/01/25 06:44 levofloxacin Allergy NA Verified 10/01/25 06:44 lisinopril Allergy NA Verified 10/01/25 06:44 naproxen (From Aleve) Allergy NA Verified 10/01/25 06:44 Penicillins Allergy NA Verified 10/01/25 06:44 pseudoephedrine Allergy NA Verified 10/01/25 06:44 red dye Allergy NA Verified 10/01/25 06:44 Sulfa (Sulfonamide Allergy NA Verified 10/01/25 06:44 Antibiotics) venlafaxine Allergy NA Verified 10/01/25 06:44 Review of Systems Const: Denies: fever(s) or chills Card: Denies: chest pain Resp: Denies: dyspnea GI: Reports: hematochezia; Denies: abdominal pain : Denies: dysuria, urinary frequency or urinary urgency Musc: Reports: back pain; Denies: neck pain Skin/Breast: Denies: rash PFSH ED PFSH: Medical History Recurrent UTI Anxiety Hypothyroidism Family hx of colon cancer Atrial fibrillation Heart failure with reduced ejection fraction Mixed hyperlipidemia COPD (chronic obstructive pulmonary disease) HTN (hypertension) Surgical History Hx of hysterectomy (~1985) 1985 INOCENCIO, BSO performed by Dr. Gonzalez Due to bleeding and cervical polyps S/P appendectomy S/P sinus surgery S/P cataract surgery S/P tonsillectomy S/P bunionectomy S/P cholecystectomy S/P shoulder surgery Family History Mother , 82 Breast cancer dx age later in life Denies family history of Colon cancer Ovarian cancer Diabetes Heart disease Hypercholesteremia Hypertension Uterine cancer Thyroid disease Stroke Social History Smoking and tobacco/nicotine status: former use of tobacco/nicotine Physical Exam Const: GENERAL APPEARANCE: cooperative ORIENTATION/CONSCIOUSNESS: Yes awake HENMT: COMMON NORMALS: normocephalic, atraumatic and hearing grossly normal bilaterally HEAD & SCALP: normocephalic and atraumatic Resp: COMMON NORMALS: normal respiratory effort, No retractions, No use of accessory muscles and clear to auscultation bilaterally AUSCULTATION: clear to auscultation bilaterally Cardio: COMMON NORMALS: regular rate, regular rhythm and No murmurs present (Cardio) RATE: regular rate RHYTHM: regular rhythm GI: COMMON NORMALS: Soft to palpation and No hepatosplenomegaly present AUSCULTATION: Yes normoactive bowel sounds PALPATION: Yes Soft to palpation, No Tenderness to palpation present (GI), No Guarding due to palpation present (GI) and Yes No hepatosplenomegaly present Extremity: COMMON NORMALS: normal to inspection, capillary refill normal, no clubbing, cyanosis or edema, no calf tenderness and no pedal edema Skin: COMMON NORMALS: no rashes or lesions noted GENERAL SKIN EXAM: no rashes or lesions noted Course Vital Signs: Vital signs: Vital Signs Temperature 97.7 F 10/02/25 00:00 Pulse Rate 69 10/02/25 02:00 Respiratory Rate 20 H 10/01/25 23:00 Blood Pressure 158/59 10/02/25 04:51 Pulse Oximetry 93 10/02/25 02:00 Oxygen Delivery Me thod Room Air 10/02/25 02:00 MDM - General Adult Medical Decision Making Patient presents with what appears to be musculoskeletal like back pain and reported a single episode of hematochezia. Later in the visit patient had a very large bloody bowel movement of bright red blood. She never had any hypotension or tachycardia but she was mildly hypertensive. Repeat hemoglobin actually increased slightly. Patient was on Eliquis for atrial fibrillation but this was stopped earlier this year patient had episode of anemia reportedly without findings of source of blood loss. 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 CT shows area of concern for active bleed. Discussed with hospitalist will admit also discussed with general surgery. Medical Records I reviewed the patient's medical records. Lab Data I reviewed the patient's lab results. 10/02/25 04:58 10/02/25 04:58 Radiology Impressions Shoulder X-Ray 10/01/25 06:30 IMPRESSION: Severe right shoulder arthropathy as above. Chest X-Ray 10/01/25 06:37 IMPRESSION: Stable chest without acute abnormality. Thoracic Spine X-Ray 10/01/25 06:37 IMPRESSION: Scoliosis and degenerative spondylosis. No acute abnormality. Abdomen/Pelvis CT 10/01/25 09:07 IMPRESSION: 1. Area of increased attenuation compatible with active hemorrhage in the sigmoid colon LEFT lower quadrant. Recommend endoscopy. 2. Sigmoid diverticulosis. 3. Moderate diffuse pancolonic constipation 4. Urine distended bladder Notified Tapan Butt DO at 10/01/2025 10:01 AM. Laboratory Results WBC 15.14 10^3/uL (3.29-11.43) H 10/01/25 13:00 RBC 3.25 10^6/uL (3.85-5.65) L 10/01/25 13:00 Hgb 11.40 g/dL (11.27-16.99) 10/01/25 13:00 Hct 34.4 % (36-47) L 10/01/25 13:00 MCV 105.8 fl (85-98) H 10/01/25 13:00 MCH 35.1 pg (27-33) H 10/01/25 13:00 MCHC 33.1 g/dL (30-55) 10/01/25 13:00 RDW 18.3 % (12.1-15.1) H 10/01/25 13:00 Plt Count 415 10^3/cmm (157-399) H 10/01/25 13:00 MPV 10.3 fL (7.4-10.4) 10/01/25 13:00 Neut % (Auto) 74.1 % 10/01/25 13:00 Lymph % (Auto) 15.4 % 10/01/25 13:00 Preston % (Auto) 8.6 % 10/01/25 13:00 Eos % (Auto) 1.0 % 10/01/25 13:00 Baso % (Auto) 0.4 % 10/01/25 13:00 Neut # (Auto) 11.22 10^3/uL (1.8-7.7) H 10/01/25 13:00 Lymph # (Auto) 2.3 10^3/uL (0.8-4.8) 10/01/25 13:00 Preston # (Auto) 1.3 10^3/uL (0.2-0.9) H 10/01/25 13:00 Eos # (Auto) 0.2 10^3/uL (0.0-0.8) 10/01/25 13:00 Baso # (Auto) 0.1 10^3/uL (0.0-0.1) 10/01/25 13:00 Nucleated RBC % (auto) 0.5 % 10/01/25 13:00 Nucleated RBCs # 0.1 /100WBC 10/01/25 13:00 PT 14.30 SECONDS (12.1-14.9) 10/01/25 13:00 INR 1.04 (0.8-1.2) 10/01/25 13:00 APTT 42.1 SECONDS (23.9-36.7) H 10/01/25 13:00 Sodium 136 mmol/L (136-145) 10/01/25 13:00 Potassium 3.9 mmol/L (3.5-5.1) 10/01/25 13:00 Chloride 99 mmol/L (98-107) 10/01/25 13:00 Carbon Dioxide 27 mmol/L (22-29) 10/01/25 13:00 Anion Gap 13.9 (5-19) 10/01/25 13:00 BUN 14 mg/dL (8-23) 10/01/25 13:00 Creatinine 0.8 mg/dL (0.5-0.9) 10/01/25 13:00 GFR Calculation Not Reportable 10/01/25 13:00 Glucose 91 mg/dL (65-115) 10/01/25 13:00 Calculated Osmolality 282 mOsm/kg (285-295) L 10/01/25 13:00 Lactic Acid 1.0 mmol/L (0.5-2.2) 10/01/25 13:00 Calcium 9.0 mg/dL (8.5-10.5) 10/01/25 13:00 Magnesium 2.2 mg/dL (1.7-2.3) 10/01/25 13:00 Iron 79 ug/dL (37-145) 10/01/25 13:00 TIBC 234 mcg/dl 10/01/25 13:00 % Saturation 33.7 % (20-50) 10/01/25 13:00 Unsat Iron Binding 155 ug/dL (112-347) 10/01/25 13:00 Ferritin 299 ng/mL (15-150) H 10/01/25 13:00 Total Bilirubin 1.3 mg/dL (0.15-1.2) H 10/01/25 13:00 AST 15 U/L (0-32) 10/01/25 13:00 ALT 11 U/L (0-33) 10/01/25 13:00 Alkaline Phosphatase 99 U/L (35-105) 10/01/25 13:00 Total Protein 6.2 g/dL (6.6-8.7) L 10/01/25 13:00 Albumin 4.1 g/dL (3.5-5.2) 10/01/25 13:00 Globulin 2.1 g/dL (1.3-4.6) 10/01/25 13:00 Vitamin B12 693 pg/mL (232-1245) 10/01/25 13:00 TSH 3.29 uIU/mL (0.27-4.20) 10/01/25 13:00 Urine Color Yellow (Yellow) 10/01/25 09:51 Urine Appearance Clear (CLEAR) 10/01/25 09:51 Urine pH 8.0 (5-7) A 10/01/25 09:51 Ur Specific [place] 1.016 (1.005-1.030) 10/01/25 09:51 Urine Protein Negative (Negative) 10/01/25 09:51 Urine Glucose (UA) Negative (Normal) 10/01/25 09:51 Urine Ketones Negative (Negative) 10/01/25 09:51 Urine Blood Non-haemolysed trace (Negative) 10/01/25 09:51 Urine Nitrate Negative (Negative) 10/01/25 09:51 Urine Bilirubin Negative (Negative) 10/01/25 09:51 Urine Urobilinogen 1.0 mg/dL (Negative) 10/01/25 09:51 Ur Leukocyte Esterase Trace (Negative) A 10/01/25 09:51 Urine RBC 3-5 /hpf (0-2) 10/01/25 09:51 Urine WBC 6-10 /hpf (0-5) 10/01/25 09:51 Ur Squamous Epith Cells 0-5 /hpf (0-5) 10/01/25 09:51 Amorphous Sediment Not Reportable 10/01/25 09:51 Urine Bacteria 4+ /hpf (NONE) H 10/01/25 09:51 Hyaline Casts 0-4 /lpf H 10/01/25 09:51 Blood Type O Positive 10/01/25 09:22 Rho(D) Type Rh positive 10/01/25 09:22 Antibody Screen Negative 10/01/25 09:22 All radiology interpretation(s) finalized by discharge EKG Data EKG 1: I personally reviewed and interpreted this EKG as follows: Interpretation: EKG 10/01/2025 6:31 AM sinus rhythm first-degree AV block rate of 66 MA interval 226 QTc [address] No acute ST changes no ST elevation or depression. Compared with EKG 07/16/2025 no acute ischemic changes. Computer generated interpretation: Shoulder X-Ray 10/01/25 06:30 IMPRESSION: Severe right shoulder arthropathy as above. Chest X-Ray 10/01/25 06:37 IMPRESSION: Stable chest without acute abnormality. Thoracic Spine X-Ray 10/01/25 06:37 IMPRESSION: Scoliosis and degenerative spondylosis. No acute abnormality. Abdomen/Pelvis CT 10/01/25 09:07 IMPRESSION: 1. Area of increased attenuation compatible with active hemorrhage in the sigmoid colon LEFT lower quadrant. Recommend endoscopy. 2. Sigmoid diverticulosis. 3. Moderate diffuse pancolonic constipation 4. Urine distended bladder Notified Tapan Butt DO at 10/01/2025 10:01 AM. 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 She also had a little bit of rectal bleeding. She has had anemia in the past had a Pretty extensive workup earlier this year in March when she was hospitalized never had any definitive finding. She had a bone marrow which myelodysplastic syndrome. She has been seeing oncology for this. She has a history of atrial fibrillation she was previously on Eliquis and in March of this year when she had the episode of anemia the Eliquis was stopped. She has not had any lightheadedness or dizziness. Most of her pain localizes to the medial edge of the right scapula. No recent falls or trauma or heavy lifting. She denies any shortness of breath. No specific chest pain pain is worse with palpation and movement to her back there is no real pain at the shoulder with movement of the right arm. Surgery was consulted today because of large maroon bowel movement that she had while in the ER. She was also having hypotensive episode and her most recent blood pressure was 197/90 and was in the process of receiving IV meds to control this. Her hemoglobin has been stable around 11 on multiple checks despite 1 large room bowel movement in the ER. She states that this is relatively new for her but she did have 1 episode of small amount of blood in her diaper yesterday which she was concerned about. She denies any abdominal pain denies any history of bloody stools. Her last colonoscopy was unremarkable according to her. She denies any current symptoms associated with these bloody bowel movements. On CT scan showing that she had some large amount of stool with an area of questionable concern of a small blush of IV contrast in the rectosigmoid area. At the time of my examination she is resting comfortably with no complaints and no recent bloody bowel movements since her last bowel movement which was several hours ago. She denies any nausea or vomiting and denies any epigastric pain. She denies any recent weight loss or adenopathy. No other complaints at this time. Related Data Home Medications ?Medication ?Instructions ?Recorded ?Confirmed fluticasone propionate 50 2 spray intranasal DAILY 08/24/20 10/01/25 mcg/actuation nasal spray,suspension (Flonase Allergy Relief) hydroxyzine HCl 25 mg tablet 25 mg PO TID PRN Anxiety 08/24/20 10/01/25 propylthiouracil 50 mg tablet 50 mg PO TID 08/24/20 10/01/25 tramadol 50 mg tablet 50 mg PO Q8H PRN Pain 08/24/20 10/01/25 multivitamin 1 tab PO DAILY 11/07/21 10/01/25 bupropion HCl 150 mg 24 hr tablet, 150 mg PO BID 04/30/24 10/01/25 extended release cranberry fruit 200 mg-dandelion 1 cap PO DAILY 04/04/25 10/01/25 50 mg-goldenseal 20 mg-herbs capsule (Urinary Cranberry Blend) ondansetron 4 mg disintegrating 4 mg PO Q8H PRN Nausea And Vomiting 04/04/25 10/01/25 tablet vitamin B complex 1 tab PO DAILY 04/04/25 10/01/25 aspirin 81 mg tablet 81 mg PO DAILY 07/14/25 10/01/25 amiodarone 200 mg tablet 200 mg PO DAILY 10/01/25 10/01/25 apixaban 5 mg tablet (Eliquis) 5 mg PO BID 10/01/25 10/01/25 clonidine HCl 0.1 mg tablet 0.1 mg PO TID PRN high blood 10/01/25 10/01/25 pressure hydrochlorothiazide 12.5 mg capsule 12.5 mg PO DAILY 10/01/25 10/01/25 metoprolol tartrate 50 mg tablet 50 mg PO BID 10/01/25 10/01/25 tizanidine 2 mg tablet 2 mg PO BID 10/01/25 10/01/25 Previous Rx's ?Medication ?Instructions ?Recorded custom inserts #1 ea 02/22/24 potassium chloride 8 mEq 8 meq PO DAILY #90 tabs 06/29/25 tablet,extended release (Klor-Con) amlodipine 10 mg tablet 10 mg PO DAILY #30 tabs 07/17/25 losartan 100 mg tablet 100 mg PO DAILY 30 days #30 tabs 07/19/25 furosemide 20 mg tablet (Lasix) 20 mg PO DAILY PRN sob #90 tabs 08/25/25 Allergies Allergy/AdvReac Type Severity Reaction Status Date / Time Alpha-Gal Allergy Unknown Verified 10/01/25 06:44 (Gjnmzlotn-Zcirx-0,3-Gala citalopram (From Celexa) Allergy NA Verified 10/01/25 06:44 clarithromycin Allergy NA Verified 10/01/25 06:44 clindamycin Allergy NA Verified 10/01/25 06:44 doxepin Allergy NA Verified 10/01/25 06:44 hydrocodone Allergy NA Verified 10/01/25 06:44 ibuprofen Allergy NA Verified 10/01/25 06:44 levofloxacin Allergy NA Verified 10/01/25 06:44 lisinopril Allergy NA Verified 10/01/25 06:44 naproxen (From Aleve) Allergy NA Verified 10/01/25 06:44 Penicillins Allergy NA Verified 10/01/25 06:44 pseudoephedrine Allergy NA Verified 10/01/25 06:44 red dye Allergy NA Verified 10/01/25 06:44 Sulfa (Sulfonamide Allergy NA Verified 10/01/25 06:44 Antibiotics) venlafaxine Allergy NA Verified 10/01/25 06:44 Review of Systems Narrative: See HPI above. PFS ED PFSH: Medical History Recurrent UTI Anxiety Hypothyroidism Family hx of colon cancer Atrial fibrillation Heart failure with reduced ejection fraction Mixed hyperlipidemia COPD (chronic obstructive pulmonary disease) HTN (hypertension) Surgical History Hx of hysterectomy (~1985) 1985 INOCENCIO, BSO performed by Dr. Gonzalez Due to bleeding and cervical polyps S/P appendectomy S/P sinus surgery S/P cataract surgery S/P tonsillectomy S/P bunionectomy S/P cholecystectomy S/P shoulder surgery Family History Mother , 82 Breast cancer dx age later in life Denies family history of Colon cancer Ovarian cancer Diabetes Heart disease Hypercholesteremia Hypertension Uterine cancer Thyroid disease Stroke Social History Smoking and tobacco/nicotine status: former use of tobacco/nicotine Physical Exam GI: RECTAL EXAM: normal sphincter tone (No blood palpated on exam, soft brown stool present in the rectal vault wit) Course Vital Signs: Vital signs: Vital Signs Temperature 97.7 F 10/02/25 00:00 Pulse Rate 69 10/02/25 02:00 Respiratory Rate 20 H 10/01/25 23:00 Blood Pressure 158/59 10/02/25 04:51 Pulse Oximetry 93 10/02/25 02:00 Oxygen Delivery Me thod Room Air 10/02/25 02:00 [facility] - General Adult Lab Data 10/02/25 04:58 10/02/25 04:58 Radiology Impressions Shoulder X-Ray 10/01/25 06:30 IMPRESSION: Severe right shoulder arthropathy as above. Chest X-Ray 10/01/25 06:37 IMPRESSION: Stable chest without acute abnormality. Thoracic Spine X-Ray 10/01/25 06:37 IMPRESSION: Scoliosis and degenerative spondylosis. No acute abnormality. Abdomen/Pelvis CT 10/01/25 09:07 IMPRESSION: 1. Area of increased attenuation compatible with active hemorrhage in the sigmoid colon LEFT lower quadrant. Recommend endoscopy. 2. Sigmoid diverticulosis. 3. Moderate diffuse pancolonic constipation 4. Urine distended bladder Notified Tapan Butt DO at 10/01/2025 10:01 AM. Laboratory Results WBC 15.14 10^3/uL (3.29-11.43) H 10/01/25 13:00 RBC 3.25 10^6/uL (3.85-5.65) L 10/01/25 13:00 Hgb 11.40 g/dL (11.27-16.99) 10/01/25 13:00 Hct 34.4 % (36-47) L 10/01/25 13:00 MCV 105.8 fl (85-98) H 10/01/25 13:00 MCH 35.1 pg (27-33) H 10/01/25 13:00 MCHC 33.1 g/dL (30-55) 10/01/25 13:00 RDW 18.3 % (12.1-15.1) H 10/01/25 13:00 Plt Count 415 10^3/cmm (157-399) H 10/01/25 13:00 MPV 10.3 fL (7.4-10.4) 10/01/25 13:00 Neut % (Auto) 74.1 % 10/01/25 13:00 Lymph % (Auto) 15.4 % 10/01/25 13:00 Preston % (Auto) 8.6 % 10/01/25 13:00 Eos % (Auto) 1.0 % 10/01/25 13:00 Baso % (Auto) 0.4 % 10/01/25 13:00 Neut # (Auto) 11.22 10^3/uL (1.8-7.7) H 10/01/25 13:00 Lymph # (Auto) 2.3 10^3/uL (0.8-4.8) 10/01/25 13:00 Preston # (Auto) 1.3 10^3/uL (0.2-0.9) H 10/01/25 13:00 Eos # (Auto) 0.2 10^3/uL (0.0-0.8) 10/01/25 13:00 Baso # (Auto) 0.1 10^3/uL (0.0-0.1) 10/01/25 13:00 Nucleated RBC % (auto) 0.5 % 10/01/25 13:00 Nucleated RBCs # 0.1 /100WBC 10/01/25 13:00 PT 14.30 SECONDS (12.1-14.9) 10/01/25 13:00 INR 1.04 (0.8-1.2) 10/01/25 13:00 APTT 42.1 SECONDS (23.9-36.7) H 10/01/25 13:00 Sodium 136 mmol/L (136-145) 10/01/25 13:00 Potassium 3.9 mmol/L (3.5-5.1) 10/01/25 13:00 Chloride 99 mmol/L (98-107) 10/01/25 13:00 Carbon Dioxide 27 mmol/L (22-29) 10/01/25 13:00 Anion Gap 13.9 (5-19) 10/01/25 13:00 BUN 14 mg/dL (8-23) 10/01/25 13:00 Creatinine 0.8 mg/dL (0.5-0.9) 10/01/25 13:00 GFR Calculation Not Reportable 10/01/25 13:00 Glucose 91 mg/dL (65-115) 10/01/25 13:00 Calculated Osmolality 282 mOsm/kg (285-295) L 10/01/25 13:00 Lactic Acid 1.0 mmol/L (0.5-2.2) 10/01/25 13:00 Calcium 9.0 mg/dL (8.5-10.5) 10/01/25 13:00 Magnesium 2.2 mg/dL (1.7-2.3) 10/01/25 13:00 Iron 79 ug/dL (37-145) 10/01/25 13:00 TIBC 234 mcg/dl 10/01/25 13:00 % Saturation 33.7 % (20-50) 10/01/25 13:00 Unsat Iron Binding 155 ug/dL (112-347) 10/01/25 13:00 Ferritin 299 ng/mL (15-150) H 10/01/25 13:00 Total Bilirubin 1.3 mg/dL (0.15-1.2) H 10/01/25 13:00 AST 15 U/L (0-32) 10/01/25 13:00 ALT 11 U/L (0-33) 10/01/25 13:00 Alkaline Phosphatase 99 U/L (35-105) 10/01/25 13:00 Total Protein 6.2 g/dL (6.6-8.7) L 10/01/25 13:00 Albumin 4.1 g/dL (3.5-5.2) 10/01/25 13:00 Globulin 2.1 g/dL (1.3-4.6) 10/01/25 13:00 Vitamin B12 693 pg/mL (232-1245) 10/01/25 13:00 TSH 3.29 uIU/mL (0.27-4.20) 10/01/25 13:00 Urine Color Yellow (Yellow) 10/01/25 09:51 Urine Appearance Clear (CLEAR) 10/01/25 09:51 Urine pH 8.0 (5-7) A 10/01/25 09:51 Ur Specific [place] 1.016 (1.005-1.030) 10/01/25 09:51 Urine Protein Negative (Negative) 10/01/25 09:51 Urine Glucose (UA) Negative (Normal) 10/01/25 09:51 Urine Ketones Negative (Negative) 10/01/25 09:51 Urine Blood Non-haemolysed trace (Negative) 10/01/25 09:51 Urine Nitrate Negative (Negative) 10/01/25 09:51 Urine Bilirubin Negative (Negative) 10/01/25 09:51 Urine Urobilinogen 1.0 mg/dL (Negative) 10/01/25 09:51 Ur Leukocyte Esterase Trace (Negative) A 10/01/25 09:51 Urine RBC 3-5 /hpf (0-2) 10/01/25 09:51 Urine WBC 6-10 /hpf (0-5) 10/01/25 09:51 Ur Squamous Epith Cells 0-5 /hpf (0-5) 10/01/25 09:51 Amorphous Sediment Not Reportable 10/01/25 09:51 Urine Bacteria 4+ /hpf (NONE) H 10/01/25 09:51 Hyaline Casts 0-4 /lpf H 10/01/25 09:51 Blood Type O Positive 10/01/25 09:22 Rho(D) Type Rh positive 10/01/25 09:22 Antibody Screen Negative 10/01/25 09:22 EKG Data EKG 1: Computer generated interpretation: Shoulder X-Ray 10/01/25 06:30 IMPRESSION: Severe right shoulder arthropathy as above. Chest X-Ray 10/01/25 06:37 IMPRESSION: Stable chest without acute abnormality. Thoracic Spine X-Ray 10/01/25 06:37 IMPRESSION: Scoliosis and degenerative spondylosis. No acute abnormality. Abdomen/Pelvis CT 10/01/25 09:07 IMPRESSION: 1. Area of increased attenuation compatible with active hemorrhage in the sigmoid colon LEFT lower quadrant. Recommend endoscopy. 2. Sigmoid diverticulosis. 3. Moderate diffuse pancolonic constipation 4. Urine distended bladder Notified Tapan Butt DO at 10/01/2025 10:01 AM. 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
[2025-10-01 06:49] LABS: Hematocrit 33.7 % (36-47); Hemoglobin 10.90 g/dL (11.27-16.99); Mean Corpuscular HGB Conc 32.3 g/dL (30-55); Mean Corpuscular Hemoglobin 34.8 pg (27-33); Mean Corpuscular Volume 107.7 fl (85-98); Nucleated Red Blood Cells % 0.3 %; Platelet Count 377 10^3/cmm (157-399); Red Blood Count 3.13 10^6/uL (3.85-5.65); White Blood Count 10.55 10^3/uL (3.29-11.43)
--- NOTE | 2025-10-01 09:07 | CT_ITS ---
WS: [id number] CT ABDOMEN PELVIS TECHNIQUE: Contrast-enhanced CT of the abdomen and pelvis with coronal and sagittal reformatted images. CLINICAL INFORMATION: abd pain/lower GI COMPARISON: CT 07/17/2025 DLP: 404.[address] scans at [facility] use at least one of these dose optimization techniques: automated exposure control; mA and/or kV adjustment per patient size (includes targeted exams where dose is matched to clinical indication); or iterative reconstruction. FINDINGS: Area of increased attenuation in the sigmoid colon LEFT lower quadrant suspicious for active hemorrhage. See bookmarked images. Fluid in the sigmoid colon. Sigmoid diverticulosis. Moderate diffuse pancolonic constipation Prior cholecystectomy. Slight bibasal atelectasis. Normal liver and spleen. Small esophageal hiatal hernia. Normal renal parenchymal enhancement. Cortical scarring both kidneys. No hydronephrosis. Stable infrarenal abdominal aortic aneurysm measuring 2.8 x 2.8 cm. Advanced spondylitic changes lumbar spine. Urine distended bladder. Chronic RIGHT lower lobe fractures with callus formation. CT/CT abdomen pelvis w con* [id number] IMPRESSION: 1. Area of increased attenuation compatible with active hemorrhage in the sigm oid colon LEFT lower quadrant. Recommend endoscopy. 2. Sigmoid diverticulosis. 3. Moderate diffuse pancolonic constipation 4. Urine distended bladder Notified Tapan Butt DO at 10/01/2025 10:01 AM.
[2025-10-01] MEDS: iohexol 350 mg/mL 500 mL Btl (per mL) IV (09:42)
[2025-10-01 10:09] LABS: Glucose Urine UA Negative (Normal); Nitrate Urine Negative (Negative); Specific Gravity, Urine 1.016 (1.005-1.030)
[2025-10-01 10:15] LABS: Add Urine Microscopic? YES
[2025-10-01 10:20] LABS: Hematocrit 33.4 % (36-47); Hemoglobin 11.20 g/dL (11.27-16.99); Mean Corpuscular HGB Conc 33.5 g/dL (30-55); Mean Corpuscular Hemoglobin 36.2 pg (27-33); Mean Corpuscular Volume 108.1 fl (85-98); Nucleated Red Blood Cells % 0.2 %; Platelet Count 375 10^3/cmm (157-399); Red Blood Count 3.09 10^6/uL (3.85-5.65); White Blood Count 12.04 10^3/uL (3.29-11.43)
[2025-10-01 10:32] LABS: INR 1.07 (0.8-1.2); Prothrombin Time 14.60 SECONDS (12.1-14.9)
[2025-10-01 10:34] LABS: Partial Thromboplastin Time 44.0 SECONDS (23.9-36.7)
--- NOTE | 2025-10-01 10:44 | PC.PHAR ---
Pt unable to verify her medications and thinks she took them yesterday. Verified all most recent medications filled at [facility]. Eliquis 5mg bid was last filled 03/16/25 90ds with a new order on file from 06/15/25 which has never been picked up. Amlodipine 10mg was ordered by Dr Hernandez 07/17/25 and never filled at [facility].
--- NOTE | 2025-10-01 10:45 | PC.NURSE ---
asked provider about patient's elevated BP and bleeding concern. dr. lucero ordered Hydralazine 5mg IVP ONCE verbally.
[2025-10-01] MEDS: hyDRALAzine 20 mg/mL INJ 1 mL 5 MG IVP (10:52)
[2025-10-01] MEDS: cefTRIAXone 2,000 mg SDV 2000 MG IVP (10:53)
[2025-10-01] MEDS: metroNIDAZOLE IV 500 MG/100 ML PREMIX 100 MG IV ×3 (11:00→22:19)
--- NOTE | 2025-10-01 11:11 | PM.CONSULT ---
Providers/Reason For Consult Consulting Physician/Specialty*: General surgery Reason for Consult*: Lower GI bleed Primary Care Provider: Jean Gibbons History of Present Illness History of Present Illness 80-year-old female presents emergency room complaining of right posterior shoulder pain worse with movement began this morning when she woke up. She also had a little bit of rectal bleeding. She has had anemia in the past had a Pretty extensive workup earlier this year in March when she was hospitalized never had any definitive finding. She had a bone marrow which myelodysplastic syndrome. She has been seeing oncology for this. She has a history of atrial fibrillation she was previously on Eliquis and in March of this year when she had the episode of anemia the Eliquis was stopped. She has not had any lightheadedness or dizziness. Most of her pain localizes to the medial edge of the right scapula. No recent falls or trauma or heavy lifting. She denies any shortness of breath. No specific chest pain pain is worse with palpation and movement to her back there is no real pain at the shoulder with movement of the right arm. Surgery was consulted today because of large maroon bowel movement that she had while in the ER. She was also having hypotensive episode and her most recent blood pressure was 197/90 and was in the process of receiving IV meds to control this. Her hemoglobin has been stable around 11 on multiple checks despite 1 large room bowel movement in the ER. She states that this is relatively new for her but she did have 1 episode of small amount of blood in her diaper yesterday which she was concerned about. She denies any abdominal pain denies any history of bloody stools. Her last colonoscopy was unremarkable according to her. She denies any current symptoms associated with these bloody bowel movements. On CT scan showing that she had some large amount of stool with an area of questionable concern of a small blush of IV contrast in the rectosigmoid area. At the time of my examination she is resting comfortably with no complaints and no recent bloody bowel movements since her last bowel movement which was several hours ago. She denies any nausea or vomiting and denies any epigastric pain. She denies any recent weight loss or adenopathy. No other complaints at this time Review of Systems Narrative: See HPI above. Const: Denies: fever(s) or chills Card: Denies: chest pain Resp: Denies: dyspnea GI: Reports: hematochezia; Denies: abdominal pain : Denies: dysuria, urinary frequency or urinary urgency Musc: Reports: back pain; Denies: neck pain Skin/Breast: Denies: rash Medications/Allergies Home Medications ?Medication ?Instructions ?Recorded ?Confirmed ?Last Taken ?Type fluticasone propionate 50 2 spray intranasal DAILY 08/24/20 10/01/25 04/03/25 History mcg/actuation nasal spray,suspension (Flonase Allergy Relief) hydroxyzine HCl 25 mg tablet 25 mg PO TID PRN Anxiety 08/24/20 10/01/25 Unknown History propylthiouracil 50 mg tablet 50 mg PO TID 08/24/20 10/01/25 12/12/20 20:00 History tramadol 50 mg tablet 50 mg PO Q8H PRN Pain 08/24/20 10/01/25 12/12/20 20:00 History multivitamin 1 tab PO DAILY 11/07/21 10/01/25 04/03/25 History custom inserts #1 ea 02/22/24 10/01/25 Unknown Rx bupropion HCl 150 mg 24 hr tablet, 150 mg PO BID 04/30/24 10/01/25 04/03/25 History extended release cranberry fruit 200 mg-dandelion 1 cap PO DAILY 04/04/25 10/01/25 04/03/25 History 50 mg-goldenseal 20 mg-herbs capsule (Urinary Cranberry Blend) ondansetron 4 mg disintegrating 4 mg PO Q8H PRN Nausea And Vomiting 04/04/25 10/01/25 Unknown History tablet vitamin B complex 1 tab PO DAILY 04/04/25 10/01/25 04/03/25 History potassium chloride 8 mEq 8 meq PO DAILY #90 tabs 06/29/25 10/01/25 Unknown Rx tablet,extended release (Klor-Con) aspirin 81 mg tablet 81 mg PO DAILY 07/14/25 10/01/25 Unknown History amlodipine 10 mg tablet 10 mg PO DAILY #30 tabs 07/17/25 10/01/25 Unknown Rx losartan 100 mg tablet 100 mg PO DAILY 30 days #30 tabs 07/19/25 10/01/25 04/03/25 Rx furosemide 20 mg tablet (Lasix) 20 mg PO DAILY PRN sob #90 tabs 08/25/25 10/01/25 Unknown Rx amiodarone 200 mg tablet 200 mg PO DAILY 10/01/25 10/01/25 Unknown History apixaban 5 mg tablet (Eliquis) 5 mg PO BID 10/01/25 10/01/25 Unknown History clonidine HCl 0.1 mg tablet 0.1 mg PO TID PRN high blood 10/01/25 10/01/25 Unknown History pressure hydrochlorothiazide 12.5 mg capsule 12.5 mg PO DAILY 10/01/25 10/01/25 Unknown History metoprolol tartrate 50 mg tablet 50 mg PO BID 10/01/25 10/01/25 Unknown History tizanidine 2 mg tablet 2 mg PO BID 10/01/25 10/01/25 Unknown History Allergies Allergy/AdvReac Type Severity Reaction Status Date / Time Alpha-Gal Allergy Unknown Verified 10/01/25 06:44 (Kxuoqpnvn-Fohgi-9,3-Gala citalopram (From Celexa) Allergy NA Verified 10/01/25 06:44 clarithromycin Allergy NA Verified 10/01/25 06:44 clindamycin Allergy NA Verified 10/01/25 06:44 doxepin Allergy NA Verified 10/01/25 06:44 hydrocodone Allergy NA Verified 10/01/25 06:44 ibuprofen Allergy NA Verified 10/01/25 06:44 levofloxacin Allergy NA Verified 10/01/25 06:44 lisinopril Allergy NA Verified 10/01/25 06:44 naproxen (From Aleve) Allergy NA Verified 10/01/25 06:44 Penicillins Allergy NA Verified 10/01/25 06:44 pseudoephedrine Allergy NA Verified 10/01/25 06:44 red dye Allergy NA Verified 10/01/25 06:44 Sulfa (Sulfonamide Allergy NA Verified 10/01/25 06:44 Antibiotics) venlafaxine Allergy NA Verified 10/01/25 06:44 PFSH Acute PFSH: Medical History (Updated 10/01/25 @ 11:14 by Wesley Silveira DO) Recurrent UTI Anxiety Hypothyroidism Family hx of colon cancer Atrial fibrillation Heart failure with reduced ejection fraction Hyperlipidemia COPD (chronic obstructive pulmonary disease) HTN (hypertension) Surgical History Hx of hysterectomy (~1985) 1986 INOCENCIO, BSO performed by Dr. Gonzalez Due to bleeding and cervical polyps S/P appendectomy S/P sinus surgery S/P cataract surgery S/P tonsillectomy S/P bunionectomy S/P cholecystectomy S/P shoulder surgery Family History Mother , 82 Breast cancer dx age later in life Denies family history of Colon cancer Ovarian cancer Diabetes Heart disease Hypercholesteremia Hypertension Uterine cancer Thyroid disease Stroke Social History Smoking and tobacco/nicotine status: former use of tobacco/nicotine Vitals/I&O/Wt Last Vital Signs Temp 97.7 F 10/01/25 06:29 Pulse 77 10/01/25 10:56 Resp 16 10/01/25 10:56 BP 168/89 10/01/25 10:56 Pulse Ox 100 10/01/25 10:56 O2 Del Method Room Air 10/01/25 10:56 Weight last 48 hrs Weight 150 lb Physical Exam Narrative: General: No acute distress, AO x 3, HEENT: PERRLA, pupils bilaterally equal and reactive Chest: Normal vesicular breath sounds, no added sounds, equal good air entry bilaterally CVS: S1-S2 regular, no murmurs, no tachycardia, no gallops, no rubs Abdomen: Soft, nontender, no organomegaly, bowel sounds present rectal exam showed no bright red blood per rectum no masses and no hemorrhoids with normal sphincter tone and some dark brown stool in the rectal vault Neuro: No focal deficits, no facial deformity, AO x3, power 5/5 in all limbs Data 10/01/25 10:16 A&P Assessment and plan 1. Lower gastrointestinal bleed: Given her extensive medical history and medical comorbidities we will hold off on any interventions for now. She is going to be admitted to the ICU for close monitoring. Her recheck hemoglobin was slightly higher than initial and her vitals have all been stable. We will continue to trend her H&H every 12 and hold any anticoagulation. She continues to have concerns for lower GI bleed will perform endoscopy in the next 24 to 48 hours as discussed with the patient who is agreeable to plan. No surgical intervention for now. Recommend aggressive blood pressure management as this is likely a component of persistent bleeding if it does persist. N.p.o. for now. Continue IV fluid resuscitation and will check coagulation labs. Will continue to follow closely with serial abdominal exams while she is in the hospital. 2. HTN (hypertension): PDMP PDMP Reviewed: Not Reviewed Coding Level of Care Code 48730 Diagnoses Lower gastrointestinal bleed K92.2 HTN (hypertension) I10
[2025-10-01] MEDS: morphine 4 mg/mL SDV 1 mL 2 MG IVP (13:08)
[2025-10-01] MEDS: ondansetron 2 mg/ML SDV 2 mL 4 MG IVP (13:08)
[2025-10-01 13:12] LABS: Hematocrit 34.4 % (36-47); Hemoglobin 11.40 g/dL (11.27-16.99); Mean Corpuscular HGB Conc 33.1 g/dL (30-55); Mean Corpuscular Hemoglobin 35.1 pg (27-33); Mean Corpuscular Volume 105.8 fl (85-98); Nucleated Red Blood Cells % 0.5 %; Platelet Count 415 10^3/cmm (157-399); Red Blood Count 3.25 10^6/uL (3.85-5.65); White Blood Count 15.14 10^3/uL (3.29-11.43)
[2025-10-01 13:25] LABS: INR 1.04 (0.8-1.2); Prothrombin Time 14.30 SECONDS (12.1-14.9)
[2025-10-01 13:26] LABS: Partial Thromboplastin Time 42.1 SECONDS (23.9-36.7)
[2025-10-01 13:29] LABS: Alanine Aminotransferase 11 U/L (0-33); Albumin Level 4.1 g/dL (3.5-5.2); Alkaline Phosphatase 99 U/L (35-105); Anion Gap 13.9 (5-19); Aspartate Amino Transferase 15 U/L (0-32); Blood Urea Nitrogen 14 mg/dL (8-23); Calcium 9.0 mg/dL (8.5-10.5); Carbon Dioxide 27 mmol/L (22-29); Chloride 99 mmol/L (98-107); Creatinine Clr Calc Pharmacy 55.6003; Globulin 2.1 g/dL (1.3-4.6); Glucose 91 mg/dL (65-115); Lactic Sepsis W/Reflex 1.0 mmol/L (0.5-2.2); Magnesium 2.2 mg/dL (1.7-2.3); Osmolality Calculated 282 mOsm/kg (285-295); Potassium 3.9 mmol/L (3.5-5.1); Sodium 136 mmol/L (136-145); Total Protein 6.2 g/dL (6.6-8.7)
--- NOTE | 2025-10-01 13:54 | PM.HP ---
Providers/Chief Complaint Admitting Physician: Eusebia Santana MD Primary Care Provider: Jean Gibbons Chief Complaint: R shoulder pain, rectal bleeding History of Present Illness As per the previous notes and the patient/family: Cris New is a 80 year old female with past medical history of hypothyroidism, anxiety, atrial fibrillation And used to be on Eliquis later stopped due to severe anemia, heart failure with reduced ejection fraction, myelodysplastic syndrome, COPD, hyperlipidemia, hypertension came to ER with back pain that was more or less between her shoulder blades. There was no chest pain, chest pressure, diaphoresis, dizziness or any heaviness. It was more of tenderness that was related to her spine as she mentioned that she has spine related issues that causes pain on and off. However she further explained that she had bright bleeding per rectum today. The patient was in the ER and had another large episode of fresh bleeding per rectum. It was painless. The patient did not have such episodes in the past. The patient did not report any recent weight loss, night sweats or low-grade ongoing chronic fever. No orthopnea or PND. During her episode of bleeding she was not dizzy and her blood pressure was stable in the ER. The patient did not report any hemorrhoids or any history of alcohol intake or liver conditions or easy bruisability. In the ER further imaging studies were done and on CT scan showing that she had some large amount of stool with an area of questionable concern of a small blush of IV contrast in the rectosigmoid area. Surgery has been consulted and is on board. Review of Systems General: Reports: 10 or more systems reviewed and unremarkable except in HPI and below Medications/Allergies Home Medications ?Medication ?Instructions ?Recorded ?Confirmed ?Last Taken ?Type fluticasone propionate 50 2 spray intranasal DAILY 08/24/20 10/01/25 04/03/25 History mcg/actuation nasal spray,suspension (Flonase Allergy Relief) hydroxyzine HCl 25 mg tablet 25 mg PO TID PRN Anxiety 08/24/20 10/01/25 Unknown History propylthiouracil 50 mg tablet 50 mg PO TID 08/24/20 10/01/25 12/12/20 20:00 History tramadol 50 mg tablet 50 mg PO Q8H PRN Pain 08/24/20 10/01/25 12/12/20 20:00 History multivitamin 1 tab PO DAILY 11/07/21 10/01/25 04/03/25 History custom inserts #1 ea 02/22/24 10/01/25 Unknown Rx bupropion HCl 150 mg 24 hr tablet, 150 mg PO BID 04/30/24 10/01/25 04/03/25 History extended release cranberry fruit 200 mg-dandelion 1 cap PO DAILY 04/04/25 10/01/25 04/03/25 History 50 mg-goldenseal 20 mg-herbs capsule (Urinary Cranberry Blend) ondansetron 4 mg disintegrating 4 mg PO Q8H PRN Nausea And Vomiting 04/04/25 10/01/25 Unknown History tablet vitamin B complex 1 tab PO DAILY 04/04/25 10/01/25 04/03/25 History potassium chloride 8 mEq 8 meq PO DAILY #90 tabs 06/29/25 10/01/25 Unknown Rx tablet,extended release (Klor-Con) aspirin 81 mg tablet 81 mg PO DAILY 07/14/25 10/01/25 Unknown History amlodipine 10 mg tablet 10 mg PO DAILY #30 tabs 07/17/25 10/01/25 Unknown Rx losartan 100 mg tablet 100 mg PO DAILY 30 days #30 tabs 07/19/25 10/01/25 04/03/25 Rx furosemide 20 mg tablet (Lasix) 20 mg PO DAILY PRN sob #90 tabs 08/25/25 10/01/25 Unknown Rx amiodarone 200 mg tablet 200 mg PO DAILY 10/01/25 10/01/25 Unknown History apixaban 5 mg tablet (Eliquis) 5 mg PO BID 10/01/25 10/01/25 Unknown History clonidine HCl 0.1 mg tablet 0.1 mg PO TID PRN high blood 10/01/25 10/01/25 Unknown History pressure hydrochlorothiazide 12.5 mg capsule 12.5 mg PO DAILY 10/01/25 10/01/25 Unknown History metoprolol tartrate 50 mg tablet 50 mg PO BID 10/01/25 10/01/25 Unknown History tizanidine 2 mg tablet 2 mg PO BID 10/01/25 10/01/25 Unknown History Allergies Allergy/AdvReac Type Severity Reaction Status Date / Time Alpha-Gal Allergy Unknown Verified 10/01/25 06:44 (Mvwjsvloh-Adpli-4,3-Gala citalopram (From Million-2-1) Allergy NA Verified 10/01/25 06:44 clarithromycin Allergy NA Verified 10/01/25 06:44 clindamycin Allergy NA Verified 10/01/25 06:44 doxepin Allergy NA Verified 10/01/25 06:44 hydrocodone Allergy NA Verified 10/01/25 06:44 ibuprofen Allergy NA Verified 10/01/25 06:44 levofloxacin Allergy NA Verified 10/01/25 06:44 lisinopril Allergy NA Verified 10/01/25 06:44 naproxen (From Aleve) Allergy NA Verified 10/01/25 06:44 Penicillins Allergy NA Verified 10/01/25 06:44 pseudoephedrine Allergy NA Verified 10/01/25 06:44 red dye Allergy NA Verified 10/01/25 06:44 Sulfa (Sulfonamide Allergy NA Verified 10/01/25 06:44 Antibiotics) venlafaxine Allergy NA Verified 10/01/25 06:44 PFSH Acute PFSH: Medical History (Updated 10/01/25 @ 17:06 by Eusebia Santana MD) Recurrent UTI Anxiety Hypothyroidism Family hx of colon cancer Atrial fibrillation Heart failure with reduced ejection fraction Mixed hyperlipidemia COPD (chronic obstructive pulmonary disease) HTN (hypertension) Surgical History Hx of hysterectomy (~1985) 1985 INOCENCIO, BSO performed by Dr. Gonzalez Due to bleeding and cervical polyps S/P appendectomy S/P sinus surgery S/P cataract surgery S/P tonsillectomy S/P bunionectomy S/P cholecystectomy S/P shoulder surgery Family History Mother , 82 Breast cancer dx age later in life Denies family history of Colon cancer Ovarian cancer Diabetes Heart disease Hypercholesteremia Hypertension Uterine cancer Thyroid disease Stroke Social History Smoking and tobacco/nicotine status: former use of tobacco/nicotine Vitals/I&O/Wt Last Vital Signs Temp 97.7 F 10/01/25 06:29 Pulse 81 10/01/25 12:07 Resp 16 10/01/25 12:07 BP 161/83 10/01/25 12:07 Pulse Ox 98 10/01/25 12:07 O2 Del Method Room Air 10/01/25 12:07 09/30/25 10/01/25 10/01/25 22:59 06:59 14:59 Intake Total 100 / 100 Balance 100 / 100 Weight last 48 hrs Weight 68.039 kg Physical Exam Narrative: General: Alert and oriented, lying comfortably without any distress, and on room air HEENT: Normocephalic, atraumatic, grossly unremarkable exam Cardio: normal rate rhythm, normal S1-S2 without any murmurs, rubs, or gallops and JVD normal Respiratory: normal vascular breathing on auscultation without any wheezes, stridor, rhonchi GI: Abdomen soft, mild diffuse tenderness on deep palpation, no organomegaly,, nondistended, normoactive bowel sounds present all 4 quadrants, Neuro: intact cranial nerves motor and sensory and cerebellar/coordination function without any focal neurological deficit Behavior: Appropriate and cooperative Extremities: Adequate palpable pulses, mild trace edema, pallor positive, no scleral icterus Data 10/01/25 13:00 10/01/25 13:00 A&P Assessment and plan 1. Lower gastrointestinal bleed: could be hydee syndrome,? echo to look for aortic valve stenosis? patient having large amount of fresh bleeding per rectum, Hold any antihypertensives at the moment even the blood pressure is a little on the higher side since considering patient might drop it later Maintain 2 IV bore cannula Active type and screen CBC every 8 hours PPI twice daily anemia work up TSH normal Surgery on board and follow the advice clear fluids for now and to follow the H and H. Continue on ceftriaxone and metronidazole To cover any intra-abdominal source Blood cultures to follow maintain 1 prbc standby 2. Leukocytosis: Possible reactive leukocytosis secondary to acute blood loss/fresh bleeding per rectum Follow-up blood cultures Broad-spectrum antibiotics with metronidazole and ceftriaxone Monitor hemodynamics and trend WBCs? 3. Generalized weakness: likely underlying anemia, other multiple comorbid conditions, old age OT/PT eval patient lives by herself 4. Back pain: Patient on tizanidine 2 mg twice daily, tramadol 50 mg as needed 3 times daily To resume accordingly Adequate analgesia as per pain scale rating Avoid any NSAIDs to aggravate any bleeding episodes 5. Uncontrolled hypertension: Patient on clonidine 0.1 mg 3 times daily as needed for high blood pressure, Hydrochlorothiazide 12.5 mg daily, Losartan 100 mg daily, metoprolol 50 mg twice daily Resume losartan 50 mg daily and to resume slowly rest of her home antihypertensive medications after clinical assessment if the hemoglobin is stable and there is no fresh bleeding per rectum Monitor blood pressure and hemodynamics 6. PAD (peripheral artery disease): Patient on aspirin half dose and used to be on Eliquis however it was held due to anemia Hold aspirin and any other blood thinners at the moment 7. Hypothyroidism: Continue home dose propylthiouracil 50 mg 3 times daily TSH: normal Continue monitoring symptoms 8. COPD (chronic obstructive pulmonary disease): DuoNeb as needed for shortness of breath 9. Paroxysmal atrial fibrillation: Patient not on Eliquis due to previous history of acute anemia Continue to hold any blood thinners including aspirin Continue amiodarone 20 mg daily Hold metoprolol considering patient having active fresh bleeding per rectum and if hemoglobin is stable in the next 24 to 48 hours and then to resume accordingly based on clinical assessment 10. Anxiety: Patient on hydroxyzine 25 mg 3 times daily as needed for anxiety, bupropion 150 mg daily And to continue accordingly 11. Heart failure with reduced ejection fraction: Currently euvolemic, echo last month showed EF of 50 to 55% Currently stable Monitor intake and output Monitor for any symptoms of heart failure 12. Mixed hyperlipidemia: Patient does not seem to be on statins on home medications reviewed To reconcile if the patient is on statins, and primary care physician referral at the time of discharge Plan: diet: clear fluids VTE: SCDs PDMP PDMP Reviewed: Not Reviewed Attestations Medical Necessity Statement*: The patient will stay more than 2 midnights for the management of large amount of fresh bleeding per rectum that needs ICU care, rigorous monitoring, in the light of high likelihood of further deterioration. Time Spent in Patient Care: 16 - 35 minutes (>than 50% of time spent in counselling and/or direct pt care on unit). Other Attestations: Patient condition has been discussed at length with the patient/family, I have independently reviewed the chart labs imaging/diagnostics/EKG. the goals of care and code status with the patient/family/NOK/legal auto service representative, and documented accordingly. The management has been done according to the current clinical condition with respect to patient goals of care and based on recommendations/guidelines. The patient/family has been informed about the current condition and further plan of care. Agreed with the plan of care and understood without any language barrier. Every effort was made to ensure accuracy of dispatcher bus and trolley. Any obvious errors or omissions should be clarified with the author of the document. Coding Level of Care Code 00067 Diagnoses Lower gastrointestinal bleed K92.2 Leukocytosis D72.829 Generalized weakness R53.1 Back pain M54.9 Uncontrolled hypertension I10 PAD (peripheral artery disease) I73.9 Hypothyroidism E03.9 COPD (chronic obstructive pulmonary disease) J44.9 Paroxysmal atrial fibrillation I48.0 Atrial fibrillation type: paroxysmal Anxiety F41.9 Heart failure with reduced ejection fraction I50.20 Mixed hyperlipidemia E78.2 Hyperlipidemia type: mixed hyperlipidemia
[2025-10-01] MEDS: pantoprazole 40 mg SDV IVP (13:55)
[2025-10-01 16:09] LABS: Ferritin 299 ng/mL (15-150); Iron 79 ug/dL (37-145); Thyroid Stimulating Hormone 3.29 uIU/mL (0.27-4.20); Total Iron Binding Capacity 234 mcg/dl; Unsaturated Iron Binding 155 ug/dL (112-347); Vitamin B12 693 pg/mL (232-1245)
--- NOTE | 2025-10-01 17:04 | USCV_ITS ---
Cris New Age: 80 Gender: F : 1945 Exam Date: 10/01/2025 20:46 Ordering Phys: Eusebia Santana MD Technologist: PENNY [place] [facility] [place]ication: aortic valve stenosis? History of anxiety, Atrial fibrillation, anemia, CHF, History of low EF, COPD, HL, HTN BP: 159 / 94 HR: 60 Rhythm: Sinus Technical Quality: Adequate MEASUREMENTS (Male / Female) Normal Values 2D ECHO LV Diastolic Diameter PLAX 4.7 cm 4.2 - 5.9 / 3.9 - 5.3 cm LV Systolic Diameter PLAX 3.5 cm IVS Diastolic Thickness 1.5 cm 0.6 - 1.0 / 0.6 - 0.9 cm IVS Systolic Thickness 1.6 cm LVPW Diastolic Thickness 1.3 cm 0.6 - 1.0 / 0.6 - 0.9 cm LVPW Systolic Thickness 1.7 cm LVOT Diameter 1.8 cm LV Ejection Fraction 2D Teich 49.6 % LV Ejection Fraction MOD 4C 43.1 % LV Ejection Fraction MOD 2C 25.4 % LV Ejection Fraction 2C AL 28.2 % LA Diameter 5.0 cm Aorta at Sinotubular Diameter 3.4 cm IVC Diameter 1.2 cm M-MODE LA Ao Ratio MM 1.6 AV Cusp Separation MM 1.2 cm DOPPLER AV Peak Velocity 156.0 cm/s LVOT Peak Velocity 80.0 cm/s AV Area Cont Eq vti 1.3 cm squared AV Area Cont Eq pk 1.3 cm squared MV Peak Velocity 156.0 cm/s MV Area PHT 2.9 cm squared Mitral E to A Ratio 0.7 TR Peak Velocity 232.0 cm/s TR Peak Gradient 21.5 mmHg TV Peak E Velocity 43.0 cm/s PV Peak Velocity 100.0 cm/s FINDINGS Left Ventricle Left ventricle is normal in size. LV systolic function is mild to moderately reduced with EF of 40-45%. Mild to moderate global hypokinesis. Grade 1 diastolic dysfunction Right Ventricle Normal in size and function Right Atrium Normal in size Left Atrium Dilated IA Septum Grossly normal Mitral Valve Mild to moderate mitral annular calcification. Trace mitral regurgitation Aortic Valve Aortic valve is thickened. Mild aortic regurgitation. No significant stenosis. Tricuspid Valve Mild tricuspid regurgitation. Pulmonary artery systolic pressure is normal. Pulmonic Valve Not well visualized Pericardium Normal Aorta Normal in size IVC Appears to be normal CONCLUSIONS LV systolic function is mild to moderately reduced with EF of 40-45% Grade 1 diastolic dysfunction Left atrial dilation Trace mitral regurgitation Mild to moderate aortic regurgitation. Mild tricuspid regurgitation. Michele Recio MD (Electronically Signed) Final Date: 02 October 2025 15:27 S
[2025-10-01 21:23] LABS: Hematocrit 28.6 % (36-47); Hemoglobin 9.40 g/dL (11.27-16.99); Mean Corpuscular HGB Conc 32.9 g/dL (30-55); Mean Corpuscular Hemoglobin 35.1 pg (27-33); Mean Corpuscular Volume 106.7 fl (85-98); Nucleated Red Blood Cells % 0.8 %; Platelet Count 352 10^3/cmm (157-399); Red Blood Count 2.68 10^6/uL (3.85-5.65); White Blood Count 13.48 10^3/uL (3.29-11.43)
[2025-10-02] VITALS (34 sets, daily range): BP systolic 102–175; BP diastolic 45–86; PULSE 55–77; RESP 15–24; TEMP 36.3–36.6; O2SAT 92–100
[2025-10-02] MEDS: pantoprazole 40 mg SDV IVP ×2 (02:39→13:37)
[2025-10-02 03:03] LABS: Hematocrit 27.4 % (36-47); Hemoglobin 9.10 g/dL (11.27-16.99)
[2025-10-02] MEDS: metroNIDAZOLE IV 500 MG/100 ML PREMIX 100 MG IV ×4 (04:52→23:45)
[2025-10-02 05:20] LABS: Hematocrit 27.2 % (36-47); Hemoglobin 9.10 g/dL (11.27-16.99)
[2025-10-02 05:47] LABS: Alanine Aminotransferase 11 U/L (0-33); Albumin Level 3.5 g/dL (3.5-5.2); Alkaline Phosphatase 84 U/L (35-105); Aspartate Amino Transferase 16 U/L (0-32); Blood Urea Nitrogen 15 mg/dL (8-23); Calcium 8.5 mg/dL (8.5-10.5); Carbon Dioxide 26 mmol/L (22-29); Chloride 100 mmol/L (98-107); Globulin 1.6 g/dL (1.3-4.6); Glucose 87 mg/dL (65-115); Osmolality Calculated 280 mOsm/kg (285-295); Sodium 135 mmol/L (136-145); Total Protein 5.1 g/dL (6.6-8.7)
[2025-10-02 05:49] LABS: Anion Gap 13.2 (5-19); Potassium 4.2 mmol/L (3.5-5.1)
[2025-10-02] MEDS: cefTRIAXone 1,000 mg SDV 1000 MG IVP (08:17)
[2025-10-02 09:06] LABS: Hematocrit 27.9 % (36-47); Hemoglobin 9.20 g/dL (11.27-16.99)
[2025-10-02 15:23] LABS: Hematocrit 29.7 % (36-47); Hemoglobin 9.60 g/dL (11.27-16.99)
--- NOTE | 2025-10-02 15:49 | P.PN_ITS ---
Subjective 2 Subjective: Additional dark bloody stool this morning. In the afternoon additional bowel movement with only a small smear. She reports had a knot in her left buttock some days ago which was quite tense but then a large bruise started spreading down her left thigh. She does not recall falling or injuring it in someway. Vitals/I&O/Wt Last Vital Signs Temp 97.8 F 10/02/25 13:00 Pulse 74 10/02/25 14:00 Resp 17 10/02/25 14:00 BP 159/81 10/02/25 14:00 Pulse Ox 96 10/02/25 14:00 O2 Del Method Room Air 10/02/25 13:00 10/02/25 10/02/25 10/02/25 06:59 14:59 22:59 Intake Total 1680 / 2960 500 / 500 Output Total 1400 / 2700 1400 / 1400 Balance 280 / 260 -900 / -900 Weight last 48 hrs Weight 64.319 kg Weight 64.319 kg Weight 64.093 kg Weight 68.039 kg Physical Exam 2 Const: COMMON NORMALS: patient oriented x3 and alert GENERAL APPEARANCE: c ooperative ORIENTATION/CONSCIOUSNESS: Yes awake HENMT: COMMON NORMALS: oropharynx normal Neck/C-Spine: COMMON NORMALS: no JVD Resp: COMMON NORMALS: normal respiratory effort and clear to auscultation bilaterally AUSCULTATION: clear to auscultation bilaterally Cardio: COMMON NORMALS: no JVD, regular rhythm, S1 normal heart sound present, S2 normal heart sound present and No murmurs present (Cardio) RHYTHM: regular rhythm HEART SOUNDS: S1 normal heart sound present and S2 normal heart sound present GI: COMMON NORMALS: Normal to inspection, nondistended, normoactive bowel sounds present, Soft to palpation and non-tender PALPATION: Yes Soft to palpation Extremity: COMMON NORMALS: no joint enlargement and no pedal edema OTHER: Large bruise tracking down the posterior/inner aspect of the left thigh from the left buttock. No lower extremity edema. Extremities perfused. No surrounding erythema, warmth, fluctuance. Neuro: COMMON NORMALS: patient oriented x3 and moves all extremities S ENSORIUM/ORIENTATION: Yes alert Urinary Catheter Management: Casas: Cath Placed During This Visit: no Reason for Continuing Indwelling Catheter: Accurate Measurement of Urinary Output in Critically Ill Patients Data 10/02/25 14:28 10/02/25 04:58 Micro: Microbiology 10/01/25 14:54 Blood Culture - Preliminary Blood NEGATIVE TO DATE 10/01/25 14:52 Blood Culture - Preliminary Blood NEGATIVE TO DATE 10/01/25 20:30 Occult Blood (FIT) - Final Stool Routine Collection A&P Assessment and plan 1. Lower gastrointestinal bleed: Reviewed vitals, hemoglobin, platelet level. She had additional dark bloody bowel movement this morning, seen by surgery. Plans for colonoscopy tomorrow. Surgery note reviewed. She has been off Eliquis. Will discontinue tramadol. She is not sure what type of allergy she had had it to hydrocodone in past. Will use Dilaudid p.o. as needed for pain for now. Vitals have remained stable. Hemoglobin rechecked this afternoon 9.6, remaining steady. Orders placed for transfer out of ICU. Continue empiric ceftriaxone and metronidazole To cover any intra-abdominal source Blood cultures to follow. Reviewed maintain 1 prbc standby Has a systolic murmur in the aortic area. Recent echo from July, however, with only some thickening of aortic valve on review. Current limited echo with grade 1 diastolic dysfunction, decrease in EF down to 40 to 45%. Aortic valve with some thickening, mild AVR. No significant stenosis. 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 2. Hematoma of buttock: There is a collection on CT of the left buttock, with large bruise that has been tracking down the left posterior medial thigh from the buttock. Reports that several days ago there was a tight knot in the left buttock. Does not recall injuring herself, believes she was not on Eliquis at that point. No superficial signs of cellulitis or infection. Monitor vitals. Recheck blood counts. Follow-up blood cultures. Unclear etiology of this. Will have to confer with radiology findings on CT. Discontinue tramadol at this time due to increasing risk of bleeding/spontaneous hemorrhage also in the setting of lower GI bleed. 3. Leukocytosis: Possible reactive leukocytosis secondary to acute blood loss/fresh bleeding per rectum Follow-up blood cultures Broad-spectrum antibiotics with metronidazole and ceftriaxone Monitor hemodynamics and trend WBCs? 4. Generalized weakness: likely underlying anemia, other multiple comorbid conditions, old age OT/PT eval patient lives by herself 5. Back pain: Patient on tizanidine 2 mg twice daily, tramadol 50 mg as needed 3 times daily at home Tramadol discontinued. Hydrocodone allergy is listed, but she does not remember what the allergy was, it was a long time ago. Add Dilaudid as needed p.o. Monitor for risk of any reaction. Adequate analgesia as per pain scale rating Avoid any NSAIDs 6. Uncontrolled hypertension: Patient on clonidine 0.1 mg 3 times daily as needed for high blood pressure, Hydrochlorothiazide 12.5 mg daily, Losartan 100 mg daily, metoprolol 50 mg twice daily Some fluctuation in blood pressures, softer blood pressures as low as 98/66 last night. Today good blood pressures in the morning, as high as 159/81 in the afternoon. Continue current regimen. Reassess. Escalate depending on recheck BP. 7. PAD (peripheral artery disease): Patient on aspirin half dose and used to be on Eliquis however it was held due to anemia Hold aspirin and any other blood thinners at the moment 8. Hypothyroidism: Continue home dose propylthiouracil 50 mg 3 times daily TSH: normal 9. COPD (chronic obstructive pulmonary disease): DuoNeb as needed for shortness of breath 10. Paroxysmal atrial fibrillation: Patient not on Eliquis due to previous history of acute anemia Continue to hold any blood thinners including aspirin Continue amiodarone 200 mg daily Hold metoprolol considering patient having active fresh bleeding per rectum and if hemoglobin is stable in the next 24 to 48 hours and then to resume accordingly based on clinical assessment 11. Anxiety: Patient on hydroxyzine 25 mg 3 times daily as needed for anxiety, bupropion 150 mg daily And to continue accordingly 12. Heart failure with reduced ejection fraction: Currently euvolemic, echo last month showed EF of 50 to 55% Currently stable Monitor intake and output Monitor for any symptoms of heart failure 13. Mixed hyperlipidemia: Patient does not seem to be on statins on home medications reviewed To reconcile if the patient is on statins, and primary care physician referral at the time of discharge Plan: Decrease in EF: Does not appear to have symptomatic CHF. But EF on limited echo appears to be newly down to 40-45%. Moderate global LV hypokinesis. Obtain troponin studies. Has not had any chest pain. Coronary angiogram in 2020 with finding of nonischemic cardiomyopathy with nonobstructive CAD, moderate postcapillary pulmonary hypertension. diet: clear fluids VTE: SCDs PDMP PDMP Reviewed: Not Reviewed Attestations 2 Medical Necessity Statement*: Continue admission for assessment and management of lower GI bleed, spontaneous left buttock/thigh hematoma. Diagnoses Lower gastrointestinal bleed K92.2 Hematoma of buttock S30.0XXA Leukocytosis D72.829 Generalized weakness R53.1 Back pain M54.9 Uncontrolled hypertension I10 PAD (peripheral artery disease) I73.9 Hypothyroidism E03.9 COPD (chronic obstructive pulmonary disease) J44.9 Paroxysmal atrial fibrillation I48.0 Atrial fibrillation type: paroxysmal Anxiety F41.9 Heart failure with reduced ejection fraction I50.20 Mixed hyperlipidemia E78.2 Hyperlipidemia type: mixed hyperlipidemia
--- NOTE | 2025-10-02 16:07 | P.PN_ITS ---
Subjective 2 Subjective: Patient seen and examined. Overall she is doing okay with no new complaints. She did have 2 episodes of dark stool during the day today. Her hemoglobin did decrease from 11-9.1 although her vitals did remain stable and her blood pressure is much better controlled today. She was on a clear liquid diet which she tolerated well. She does state that she feels a little weaker today. No shortness of breath and denies any other complaints at this time she has been on room air throughout this. No other complaints at this time. No acute events overnight. Vitals/I&O/Wt Last Vital Signs Temp 97.8 F 10/02/25 13:00 Pulse 74 10/02/25 14:00 Resp 17 10/02/25 14:00 BP 159/81 10/02/25 14:00 Pulse Ox 96 10/02/25 14:00 O2 Del Method Room Air 10/02/25 13:00 10/02/25 10/02/25 10/02/25 06:59 14:59 22:59 Intake Total 1680 / 2960 500 / 500 Output Total 1400 / 2700 1400 / 1400 Balance 280 / 260 -900 / -900 Weight last 48 hrs Weight 141 lb 12.8 oz Weight 141 lb 12.8 oz Weight 141 lb 4.8 oz Weight 150 lb Physical Exam 2 Narrative: General: No acute distress, AO x 3, HEENT: PERRLA, pupils bilaterally equal and reactive Chest: Normal vesicular breath sounds, no added sounds, equal good air entry bilaterally CVS: S1-S2 regular, no murmurs, no tachycardia, no gallops, no rubs Abdomen: Soft, nontender, no organomegaly, bowel sounds present rectal exam showed no bright red blood per rectum no masses and no hemorrhoids with normal sphincter tone and some dark brown stool in the rectal vault Neuro: No focal deficits, no facial deformity, AO x3, power 5/5 in all limbs Urinary Catheter Management: Casas: Cath Placed During This Visit: no Reason for Continuing Indwelling Catheter: Accurate Measurement of Urinary Output in Critically Ill Patients Data 10/02/25 14:28 10/02/25 04:58 Micro: Microbiology 10/01/25 14:54 Blood Culture - Preliminary Blood NEGATIVE TO DATE 10/01/25 14:52 Blood Culture - Preliminary Blood NEGATIVE TO DATE 10/01/25 20:30 Occult Blood (FIT) - Final Stool Routine Collection A&P Assessment and plan 1. Lower gastrointestinal bleed: We will plan for colonoscopy in the morning to evaluate for any active bleeds. N.p.o. after midnight. All risks and benefits were discussed with the patient and she agreed to proceed with the procedure as discussed. Continue with serial abdominal exams and H&H Q12. Given her extensive medical history and medical comorbidities we will hold off on any interventions for now. She is going to be admitted to the ICU for close monitoring. Her recheck hemoglobin was slightly higher than initial and her vitals have all been stable. We will continue to trend her H&H every 12 and hold any anticoagulation. She continues to have concerns for lower GI bleed will perform endoscopy in the next 24 to 48 hours as discussed with the patient who is agreeable to plan. No surgical intervention for now. Recommend aggressive blood pressure management as this is likely a component of persistent bleeding if it does persist. N.p.o. for now. Continue IV fluid resuscitation and will check coagulation labs. Will continue to follow closely with serial abdominal exams while she is in the hospital. 2. HTN (hypertension): PDMP PDMP Reviewed: Not Reviewed Attestations 2 Medical Necessity Statement*: Remains in ICU secondary to complex comorbidities to be managed by hospitalist team Coding Level of Care Code Acute Code for Chg Fwd Diagnoses Lower gastrointestinal bleed K92.2 HTN (hypertension) I10
[2025-10-02 17:18] LABS: Hematocrit 28.0 % (36-47); Hemoglobin 9.50 g/dL (11.27-16.99)
--- NOTE | 2025-10-02 18:06 | PC.NURSE ---
Report given to medical floor nurse, no distress noted. Brought to floor via bed. two bm today with black liquid noted. Patient npo after midnight for colonoscopy in am
[2025-10-02] MEDS: HYDROmorphone tab 2 MG TABLET PO (19:25)
[2025-10-02 21:15] LABS: Hematocrit 27.8 % (36-47); Hemoglobin 9.10 g/dL (11.27-16.99)
[2025-10-02] MEDS: Fleet Enema 133 mL Enema PR (23:45)
[2025-10-03] VITALS (15 sets, daily range): BP systolic 114–190; BP diastolic 59–104; PULSE 62–98; RESP 14–18; TEMP 36.1–37.4; O2SAT 93–100
[2025-10-03] MEDS: pantoprazole 40 mg SDV IVP ×2 (00:42→12:38)
[2025-10-03 04:08] LABS: Hematocrit 27.0 % (36-47); Hemoglobin 8.90 g/dL (11.27-16.99); Mean Corpuscular HGB Conc 33.0 g/dL (30-55); Mean Corpuscular Hemoglobin 35.3 pg (27-33); Mean Corpuscular Volume 107.1 fl (85-98); Nucleated Red Blood Cells % 0 %; Platelet Count 268 10^3/cmm (157-399); Red Blood Count 2.52 10^6/uL (3.85-5.65); White Blood Count 9.15 10^3/uL (3.29-11.43)
[2025-10-03 04:32] LABS: Alanine Aminotransferase 9 U/L (0-33); Albumin Level 3.5 g/dL (3.5-5.2); Alkaline Phosphatase 83 U/L (35-105); Anion Gap 9.7 (5-19); Aspartate Amino Transferase 11 U/L (0-32); Blood Urea Nitrogen 11 mg/dL (8-23); Calcium 8.3 mg/dL (8.5-10.5); Carbon Dioxide 25 mmol/L (22-29); Chloride 104 mmol/L (98-107); Globulin 1.6 g/dL (1.3-4.6); Glucose 90 mg/dL (65-115); Osmolality Calculated 279 mOsm/kg (285-295); Potassium 3.7 mmol/L (3.5-5.1); Sodium 135 mmol/L (136-145); Total Protein 5.1 g/dL (6.6-8.7)
--- NOTE | 2025-10-03 08:12 | ANES.PREANE2 ---
Pre-Anesthetic Assessment Height/Weight: Height 1.68 m Weight 63.957 kg Temp Pulse Resp BP Pulse Ox O2 Del Method 99.3 F 97 16 156/80 95 Room Air 10/03/25 06:16 10/03/25 06:16 10/03/25 06:16 10/03/25 06:16 10/03/25 06:16 10/03/25 06:16 Operation Date: 10/03/25 08:00 Proposed Procedures p Colonoscopy(Not Applicable) - Wesley Silveira DO Familial anesthetic complications: none Was Beta Phuong taken within 24 hours: N/A Was Clonidine taken within 24 hours: N/A Last intake: Intake Last Liquid Date 10/02/25 Last Liquid Time 23:55 Last Solid Date 10/02/25 Last Solid Time 22:00 Social No alcohol and No tobacco Exam alert, oriented x 3, clear to auscultation bilaterally and regular rate & rhythm Pulmonary Chronic Obstructive Pulmonary Disease CV/HEM Atrial Fibrillation, Arrythmia, Congestive Heart Failure and Hypertension AVR Anesthetic Plan ASA status: 4 Anesthesia: MAC Risk of > 500 ml blood loss (7ml/kg in children): No Medications/Allergies Home Medications ?Medication ?Instructions ?Recorded ?Confirmed ?Last Taken ?Type fluticasone propionate 50 2 spray intranasal DAILY 08/24/20 10/01/25 04/03/25 History mcg/actuation nasal spray,suspension (Flonase Allergy Relief) hydroxyzine HCl 25 mg tablet 25 mg PO TID PRN Anxiety 08/24/20 10/01/25 Unknown History propylthiouracil 50 mg tablet 50 mg PO TID 08/24/20 10/01/25 12/12/20 20:00 History tramadol 50 mg tablet 50 mg PO Q8H PRN Pain 08/24/20 10/01/25 12/12/20 20:00 History multivitamin 1 tab PO DAILY 11/07/21 10/01/25 04/03/25 History custom inserts #1 ea 02/22/24 10/01/25 Unknown Rx bupropion HCl 150 mg 24 hr tablet, 150 mg PO BID 04/30/24 10/01/25 04/03/25 History extended release cranberry fruit 200 mg-dandelion 1 cap PO DAILY 04/04/25 10/01/25 04/03/25 History 50 mg-goldenseal 20 mg-herbs capsule (Urinary Cranberry Blend) ondansetron 4 mg disintegrating 4 mg PO Q8H PRN Nausea And Vomiting 04/04/25 10/01/25 Unknown History tablet vitamin B complex 1 tab PO DAILY 04/04/25 10/01/25 04/03/25 History potassium chloride 8 mEq 8 meq PO DAILY #90 tabs 06/29/25 10/01/25 Unknown Rx tablet,extended release (Klor-Con) aspirin 81 mg tablet 81 mg PO DAILY 07/14/25 10/01/25 Unknown History amlodipine 10 mg tablet 10 mg PO DAILY #30 tabs 07/17/25 10/01/25 Unknown Rx losartan 100 mg tablet 100 mg PO DAILY 30 days #30 tabs 07/19/25 10/01/25 04/03/25 Rx furosemide 20 mg tablet (Lasix) 20 mg PO DAILY PRN sob #90 tabs 08/25/25 10/01/25 Unknown Rx amiodarone 200 mg tablet 200 mg PO DAILY 10/01/25 10/01/25 Unknown History apixaban 5 mg tablet (Eliquis) 5 mg PO BID 10/01/25 10/01/25 Unknown History clonidine HCl 0.1 mg tablet 0.1 mg PO TID PRN high blood 10/01/25 10/01/25 Unknown History pressure hydrochlorothiazide 12.5 mg capsule 12.5 mg PO DAILY 10/01/25 10/01/25 Unknown History metoprolol tartrate 50 mg tablet 50 mg PO BID 10/01/25 10/01/25 Unknown History tizanidine 2 mg tablet 2 mg PO BID 10/01/25 10/01/25 Unknown History Allergies Allergy/AdvReac Type Severity Reaction Status Date / Time Alpha-Gal Allergy Unknown Verified 10/01/25 06:44 ([id number]-5,3-Gala citalopram (From Celexa) Allergy NA Verified 10/01/25 06:44 clarithromycin Allergy NA Verified 10/01/25 06:44 clindamycin Allergy NA Verified 10/01/25 06:44 doxepin Allergy NA Verified 10/01/25 06:44 hydrocodone Allergy NA Verified 10/01/25 06:44 ibuprofen Allergy NA Verified 10/01/25 06:44 levofloxacin Allergy NA Verified 10/01/25 06:44 lisinopril Allergy NA Verified 10/01/25 06:44 naproxen (From Aleve) Allergy NA Verified 10/01/25 06:44 Penicillins Allergy NA Verified 10/01/25 06:44 pseudoephedrine Allergy NA Verified 10/01/25 06:44 red dye Allergy NA Verified 10/01/25 06:44 Sulfa (Sulfonamide Allergy NA Verified 10/01/25 06:44 Antibiotics) venlafaxine Allergy NA Verified 10/01/25 06:44 Current Medications Generic Name Dose Route Start Last Admin Trade Name Freq PRN Reason Stop Dose Admin Acetaminophen 650 mg 10/01/25 12:41 10/02/25 04:51 Acetaminophen 325 Mg Tablet PO 650 mg On Hold: 10/03/25 08:09 Q6H PRN Administration Comment: Order held by Process MILD PAIN Transfer Amiodarone HCl 200 mg 10/02/25 05:00 10/03/25 05:02 Amiodarone 200 Mg Tablet PO Not Given On Hold: 10/03/25 08:09 DAILY ARIANA Comment: Order held by Process Transfer Bupropion HCl 150 mg 10/01/25 17:00 10/03/25 05:02 Bupropion Xl (24 Hr) 150 Mg Tablet PO Not Given On Hold: 10/03/25 08:09 BID ARIANA Comment: Order held by Process Transfer Ceftriaxone Sodium 1,000 mg 10/02/25 09:00 10/02/25 08:17 Ceftriaxone 1,000 Mg Sdv IVP 1,000 mg On Hold: 10/03/25 08:09 Q24H ARIANA Administration Comment: Order held by Process Protocol Transfer Hydromorphone HCl 2 mg 10/02/25 16:56 10/02/25 19:25 Hydromorphone Tab 2 Mg Tablet PO 2 mg On Hold: 10/03/25 08:09 Q6H PRN Administration Comment: Order held by Process MODERATE PAIN Transfer Metronidazole 500 mg in 100 mls @ 100 mls/hr 10/01/25 17:00 10/03/25 05:03 Flagyl Iv IV Not Given On Hold: 10/03/25 08:09 Q6H ARIANA Comment: Order held by Process Protocol Transfer Losartan Potassium 50 mg 10/02/25 05:00 10/03/25 05:03 Losartan 50 Mg Tablet PO Not Given On Hold: 10/03/25 08:09 DAILY ARIANA Comment: Order held by Process Transfer Pantoprazole Sodium 40 mg 10/01/25 12:45 10/03/25 00:42 Pantoprazole 40 Mg Sdv IVP 40 mg On Hold: 10/03/25 08:09 Q12H ARIANA Administration Comment: Order held by Process Transfer Propylthiouracil 50 mg 10/02/25 08:15 10/03/25 05:04 Propylthiouracil 50 Mg Tablet PO Not Given On Hold: 10/03/25 08:09 TID ARIANA Comment: Order held by Process Transfer Tizanidine HCl 2 mg 10/01/25 17:00 10/03/25 05:04 Tizanidine 4 Mg Tablet PO Not Given On Hold: 10/03/25 08:09 BID ARIANA Comment: Order held by Process Transfer [facility] Anesthesia Medical History (Updated 10/02/25 @ 16:51 by Ibrahima Eastman MD) Recurrent UTI Anxiety Hypothyroidism Family hx of colon cancer Atrial fibrillation Heart failure with reduced ejection fraction Mixed hyperlipidemia COPD (chronic obstructive pulmonary disease) HTN (hypertension) Surgical History Hx of hysterectomy (~1985) 1985 IN[facility]ENC[facility], BSO performed by Dr. Gonzalez Due to bleeding and cervical polyps S/P appendectomy S/P sinus surgery S/P cataract surgery S/P tonsillectomy S/P bunionectomy S/P cholecystectomy S/P shoulder surgery Family History Mother , 82 Breast cancer dx age later in life Denies family history of Colon cancer Ovarian cancer Diabetes Heart disease Hypercholesteremia Hypertension Uterine cancer Thyroid disease Stroke Social History Smoking and tobacco/nicotine status: former use of tobacco/nicotine Data Anesthesia 10/03/25 03:38 10/03/25 03:38 Short CBC 10/01/25 10/01/25 10/01/25 Range/Units 10:16 13:00 20:50 WBC 12.04 H 15.14 H 13.48 H (3.29-11.43) 10^3/uL Hgb 11.20 L 11.40 9.40 L (11.27-16.99) g/dL Hct 33.4 L 34.4 L 28.6 L (36-47) % MCV 108.1 H 105.8 H 106.7 H (85-98) fl Plt Count 375 415 H 352 (157-399) 10^3/cmm Neut % (Auto) 72.1 74.1 69.5 % Neut # (Auto) 8.68 H 11.22 H 9.36 H (1.8-7.7) 10^3/uL 10/02/25 10/02/25 10/02/25 Range/Units 01:25 04:58 08:51 WBC (3.29-11.43) 10^3/uL Hgb 9.10 L 9.10 L 9.20 L (11.27-16.99) g/dL Hct 27.4 L 27.2 L 27.9 L (36-47) % MCV (85-98) fl Plt Count (157-399) 10^3/cmm Neut % (Auto) % Neut # (Auto) (1.8-7.7) 10^3/uL 10/02/25 10/02/25 10/02/25 Range/Units 14:28 16:54 20:53 WBC (3.29-11.43) 10^3/uL Hgb 9.60 L 9.50 L 9.10 L (11.27-16.99) g/dL Hct 29.7 L 28.0 L 27.8 L (36-47) % MCV (85-98) fl Plt Count (157-399) 10^3/cmm Neut % (Auto) % Neut # (Auto) (1.8-7.7) 10^3/uL 10/03/25 Range/Units 03:38 WBC 9.15 (3.29-11.43) 10^3/uL Hgb 8.90 L (11.27-16.99) g/dL Hct 27.0 L (36-47) % MCV 107.1 H (85-98) fl Plt Count 268 (157-399) 10^3/cmm Neut % (Auto) 70.0 % Neut # (Auto) 6.40 (1.8-7.7) 10^3/uL BMP 10/01/25 10/02/25 10/03/25 13:00 04:58 03:38 Sodium 136 135 L 135 L Potassium 3.9 4.2 3.7 Chloride 99 100 104 Carbon Dioxide 27 26 25 BUN 14 15 11 Creatinine 0.8 0.8 0.7 Glucose 91 87 90 Calcium 9.0 8.5 8.3 L Liver Function 10/01/25 10/02/25 10/03/25 Range/Units 13:00 04:58 03:38 Total Bilirubin 1.3 H 1.2 0.9 (0.15-1.2) mg/dL AST 15 16 11 (0-32) U/L ALT 11 11 9 (0-33) U/L Alkaline Phosphatase 99 84 83 (35-105) U/L Albumin 4.1 3.5 3.5 (3.5-5.2) g/dL Urine 10/01/25 Range/Units 09:51 Urine Color Yellow (Yellow) Urine Appearance Clear (CLEAR) Urine pH 8.0 A (5-7) Ur Specific [place] 1.016 (1.005-1.030) Urine Protein Negative (Negative) Urine Glucose (UA) Negative (Normal) Urine Ketones Negative (Negative) Urine Nitrate Negative (Negative) Urine Bilirubin Negative (Negative) Ur Leukocyte Esterase Trace A (Negative) Urine RBC 3-5 (0-2) /hpf Urine WBC 6-10 (0-5) /hpf Blood Bank 10/01/25 09:22 Blood Type O Positive Rho(D) Type Rh positive Antibody Screen Negative Coags 10/01/25 10/01/25 06:42 13:00 PT 14.60 14.30 INR 1.07 1.04 APTT 44.0 H 42.1 H Microbiology 10/01/25 14:54 Blood Culture - Preliminary Blood NEGATIVE TO DATE 10/01/25 14:52 Blood Culture - Preliminary Blood NEGATIVE TO DATE Cardiac Studies: Echocardiogram 07/17/25 Echocardiogram Limited Views 10/01/25 Echocardiogram Ultrasound 11/11/20 Cardiac Event Monitor 05/13/25
[2025-10-03] MEDS: labetalol 5 mg/mL SDV 20mL IVP (09:24)
--- NOTE | 2025-10-03 09:41 | SUR.PHASEI ---
In post-op, per Dr. Rios, Labetolol 5mg given and pt ok to transfer to floor. Report given to pt's floor nurse, Taryn. Also notified Taryn of pt's right shoulder pain, administration of Labetolol and vitals as documented. Pt transferred to floor by wheelchair by CAMELIA Maher and DIGNA Clayton.
--- NOTE | 2025-10-03 09:45 | ANE.PACU2 ---
Inpatient post-anesthesia follow up: Airway intact: Yes Vital signs: Temperature 98.1 F Pulse Rate 47 Respiratory Rate 16 Blood Pressure 136/64 Pulse Oximetry 95 Oxygen Delivery Me thod Room Air Oxygen Flow Rate 8 Fraction of Inspir ed Oxygen Hydration adequate: Yes Nausea and vomiting: No Pain level: 1 Mental status: Baseline
--- NOTE | 2025-10-03 11:57 | PM.PN ---
Vitals/I&O/Wt Last Vital Signs Temp 97.6 F 10/03/25 09:10 Pulse 62 10/03/25 09:30 Resp 16 10/03/25 09:30 BP 179/79 10/03/25 09:30 Pulse Ox 96 10/03/25 09:30 O2 Del Method Room Air 10/03/25 09:30 O2 Flow Rate 8 10/03/25 08:53 10/02/25 10/03/25 10/03/25 22:59 06:59 14:59 Intake Total 100 / 600 100 / 700 Output Total 1700 / 3100 Balance 100 / -800 -1600 / -2400 Weight last 48 hrs Weight 63.957 kg Weight 64.319 kg Weight 64.319 kg Weight 64.093 kg Physical Exam Const: COMMON NORMALS: patient oriented x3 and alert GENERAL APPEARANCE: cooperative ORIENTATION/CONSCIOUSNESS: Yes awake HENMT: COMMON NORMALS: oropharynx normal Neck/C-Spine: COMMON NORMALS: no JVD Resp: COMMON NORMALS: normal respiratory effort and clear to auscultation bilaterally AUSCULTATION: clear to auscultation bilaterally Cardio: COMMON NORMALS: no JVD, regular rhythm, S1 normal heart sound present, S2 normal heart sound present and No murmurs present (Cardio) RHYTHM: regular rhythm HEART SOUNDS: S1 normal heart sound present and S2 normal heart sound present GI: COMMON NORMALS: Normal to inspection, nondistended, normoactive bowel sounds present, Soft to palpation and non-tender PALPATION: Yes Soft to palpation Extremity: COMMON NORMALS: no joint enlargement and no pedal edema OTHER: Large bruise tracking down the posterior/inner aspect of the left thigh from the left buttock. No lower extremity edema. Extremities perfused. No surrounding erythema, warmth, fluctuance. Neuro: COMMON NORMALS: patient oriented x3 and moves all extremities SENSORIUM/ORIENTATION: Yes alert Urinary Catheter Management: Casas: Cath Placed During This Visit: no Reason for Continuing Indwelling Catheter: Other Data 10/03/25 03:38 10/03/25 03:38 Micro: Microbiology 10/01/25 14:54 Blood Culture - Preliminary Blood NEGATIVE TO DATE 10/01/25 14:52 Blood Culture - Preliminary Blood NEGATIVE TO DATE A&P Assessment and plan 1. Lower gastrointestinal bleed: Reviewed vitals, CBC, hemoglobin down to 8.9 today. Platelets normal at 268. Underwent flex sig, with noted extensive diverticulosis. Without active bleeding. Full colonoscopy not performed as noted to have stool more proximally per discussion with the surgeon. Discussed with her. Will reassess blood counts. Continue to hold with tramadol as per discussion may increase risk of bleeding and possibly responsible for her several recent unexplained bleeds. She has been off Eliquis. Will discontinue tramadol. She is not sure what type of allergy she had had it to hydrocodone in past. Will use Dilaudid p.o. as needed for pain for now. Vitals have remained stable. Continue empiric ceftriaxone and metronidazole To cover any intra-abdominal source maintain 1 prbc standby Has a systolic murmur in the aortic area. Recent echo from July, however, with only some thickening of aortic valve on review. Current limited echo with grade 1 diastolic dysfunction, decrease in EF down to 40 to 45%. Aortic valve with some thickening, mild AVR. No significant stenosis. 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 2. Hematoma of buttock: Discussed with her, could not reach radiologist to get further details on the findings in the left buttock on the CT. There is a collection on CT of the left buttock, with large bruise that has been tracking down the left posterior medial thigh from the buttock. Reports that several days ago there was a tight knot in the left buttock. Does not recall injuring herself, believes she was not on Eliquis at that point. No superficial signs of cellulitis or infection. Monitor vitals. Recheck blood counts. Follow-up blood cultures. Reviewed blood cultures, remaining negative. She states she had fallen on her buttocks about 3 weeks ago and needs to be careful. Unclear etiology of this. Will have to confer with radiology findings on CT. Discussed with her to discontinue tramadol due to increasing risk of bleeding/spontaneous hemorrhage also in the setting of lower GI bleed. 3. Leukocytosis: Repeat CBC. Leukocytosis resolved. Possible reactive leukocytosis secondary to acute blood loss/fresh bleeding per rectum Follow-up blood cultures Broad-spectrum antibiotics with metronidazole and ceftriaxone Monitor hemodynamics. Repeat blood counts requested. 4. Generalized weakness: Reviewed chemistry, sodium low normal 135. Renal and liver parameters normal. likely underlying anemia, other multiple comorbid conditions, old age OT/PT eval patient lives by herself 5. Back pain: Patient on tizanidine 2 mg twice daily, tramadol 50 mg as needed 3 times daily at home. Use of Tylenol discussed with her as well as limitations. As we discussed, tramadol discontinued. Hydrocodone allergy is listed, but she does not remember what the allergy was, it was a long time ago. Added Dilaudid as needed p.o. Monitor for risk of any reaction. Adequate analgesia as per pain scale rating Avoid any NSAIDs 6. Uncontrolled hypertension: Continued hypertension, rising blood pressure. Increase losartan to 100 mg. Resume metoprolol 25 mg twice daily. Resume her clonidine. Monitor for risk of hypotension. Repeat chemistry requested. At home patient on clonidine 0.1 mg 3 times daily as needed for high blood pressure, Hydrochlorothiazide 12.5 mg daily, Losartan 100 mg daily, metoprolol 50 mg twice daily Some fluctuation in blood pressures, softer blood pressures as low as 98/66 last night. 7. PAD (peripheral artery disease): Patient on aspirin half dose and used to be on Eliquis however it was held due to anemia Hold aspirin and any other blood thinners at the moment 8. Hypothyroidism: Continue home dose propylthiouracil 50 mg 3 times daily TSH: normal 9. COPD (chronic obstructive pulmonary disease): DuoNeb as needed for shortness of breath 10. Paroxysmal atrial fibrillation: Patient not on Eliquis due to previous history of acute anemia Continue to hold any blood thinners including aspirin Continue amiodarone 200 mg daily Hold metoprolol considering patient having active fresh bleeding per rectum and if hemoglobin is stable in the next 24 to 48 hours and then to resume accordingly based on clinical assessment 11. Anxiety: Patient on hydroxyzine 25 mg 3 times daily as needed for anxiety, bupropion 150 mg daily And to continue accordingly 12. Heart failure with reduced ejection fraction: Currently euvolemic, echo last month showed EF of 50 to 55% Currently stable Monitor intake and output Monitor for any symptoms of heart failure 13. Mixed hyperlipidemia: Patient does not seem to be on statins on home medications reviewed To reconcile if the patient is on statins, and primary care physician referral at the time of discharge Plan: Decrease in EF: Does not appear to have symptomatic CHF. But EF on limited echo appears to be newly down to 40-45%. Moderate global LV hypokinesis. Obtain troponin studies. Has not had any chest pain. Coronary angiogram in 2020 with finding of nonischemic cardiomyopathy with nonobstructive CAD, moderate postcapillary pulmonary hypertension. diet: clear fluids VTE: SCDs PDMP PDMP Reviewed: Not Reviewed Attestations Medical Necessity Statement*: Continue admission for assessment and management of lower GI bleed, spontaneous left buttock/thigh hematoma. and High MDM includes amount and/or complexity of data reviewed/ordered [ resulted lab(s)/test(s), ordered lab(s)/test(s) and other healthcare professional discussion] as documented Diagnoses Lower gastrointestinal bleed K92.2 Hematoma of buttock S30.0XXA Leukocytosis D72.829 Generalized weakness R53.1 Back pain M54.9 Uncontrolled hypertension I10 PAD (peripheral artery disease) I73.9 Hypothyroidism E03.9 COPD (chronic obstructive pulmonary disease) J44.9 Paroxysmal atrial fibrillation I48.0 Atrial fibrillation type: paroxysmal Anxiety F41.9 Heart failure with reduced ejection fraction I50.20 Mixed hyperlipidemia E78.2 Hyperlipidemia type: mixed hyperlipidemia
[2025-10-03] MEDS: HYDROmorphone tab 2 MG TABLET PO (12:38)
[2025-10-03] MEDS: metroNIDAZOLE IV 500 MG/100 ML PREMIX 100 MG IV ×2 (17:16→22:00)
[2025-10-04] VITALS (7 sets, daily range): BP systolic 136–173; BP diastolic 56–74; PULSE 47–87; RESP 16–17; TEMP 36.7–36.9; O2SAT 92–96
[2025-10-04] MEDS: pantoprazole 40 mg SDV IVP (01:36)
[2025-10-04 04:30] LABS: Hematocrit 29.2 % (36-47); Hemoglobin 9.60 g/dL (11.27-16.99); Mean Corpuscular HGB Conc 32.9 g/dL (30-55); Mean Corpuscular Hemoglobin 35.6 pg (27-33); Mean Corpuscular Volume 108.1 fl (85-98); Nucleated Red Blood Cells % 0.4 %; Platelet Count 280 10^3/cmm (157-399); Red Blood Count 2.70 10^6/uL (3.85-5.65); White Blood Count 7.56 10^3/uL (3.29-11.43)
[2025-10-04 04:57] LABS: Anion Gap 8.8 (5-19); Blood Urea Nitrogen 8 mg/dL (8-23); Calcium 8.8 mg/dL (8.5-10.5); Carbon Dioxide 28 mmol/L (22-29); Chloride 104 mmol/L (98-107); Glucose 88 mg/dL (65-115); Osmolality Calculated 282 mOsm/kg (285-295); Potassium 3.8 mmol/L (3.5-5.1); Sodium 137 mmol/L (136-145)
[2025-10-04] MEDS: metroNIDAZOLE IV 500 MG/100 ML PREMIX 100 MG IV (05:01)
[2025-10-04] MEDS: LOSARTAN 100 MG TABLET PO (05:02)
[2025-10-04] MEDS: cefTRIAXone 1,000 mg SDV 1000 MG IVP (08:31)
--- NOTE | 2025-10-04 09:08 | PM.DCS ---
Discharge Providers Date of Admission: 10/01/25 13:03 Date of Discharge: October 04, 2025 Attending Provider at Admission: Eusebia Santana MD Attending Provider at Discharge: Ibrahima Eastman Primary Care Provider: Jean Gibbons Diagnoses at Discharge Discharge Diagnosis 1. Lower gastrointestinal bleed: 2. Hematoma of buttock: 3. Leukocytosis: 4. Generalized weakness: 5. Back pain: 6. Uncontrolled hypertension: 7. PAD (peripheral artery disease): 8. Hypothyroidism: 9. COPD (chronic obstructive pulmonary disease): 10. Paroxysmal atrial fibrillation: 11. Anxiety: 12. Heart failure with reduced ejection fraction: 13. Mixed hyperlipidemia: Reason for Visit Reason for Visit: R shoulder pain, rectal bleeding Brief History: As per the previous notes and the patient/family: Cris New is a 80 year old female with past medical history of hypothyroidism, anxiety, atrial fibrillation And used to be on Eliquis later stopped due to severe anemia, heart failure with reduced ejection fraction, myelodysplastic syndrome, COPD, hyperlipidemia, hypertension came to ER with back pain that was more or less between her shoulder blades. There was no chest pain, chest pressure, diaphoresis, dizziness or any heaviness. It was more of tenderness that was related to her spine as she mentioned that she has spine related issues that causes pain on and off. However she further explained that she had bright bleeding per rectum today. The patient was in the ER and had another large episode of fresh bleeding per rectum. It was painless. The patient did not have such episodes in the past. The patient did not report any recent weight loss, night sweats or low-grade ongoing chronic fever. No orthopnea or PND. During her episode of bleeding she was not dizzy and her blood pressure was stable in the ER. The patient did not report any hemorrhoids or any history of alcohol intake or liver conditions or easy bruisability. In the ER further imaging studies were done and on CT scan showing that she had some large amount of stool with an area of questionable concern of a small blush of IV contrast in the rectosigmoid area. Surgery has been consulted and is on board. Hospital Course Hospital Course Tramadol was discontinued with concern for spontaneous bleeding both lower GI, as well as recent hematoma of the left buttock/thigh, with residual large amount of bruising on the thigh. She had fallen down 3 weeks ago. Has been off anticoagulation with Eliquis. On a half dose baby aspirin. Hemoglobin monitored, and underwent assessment with flex sig which showed extensive diverticulosis, but without active bleeding. Hemoglobin remained stable. Please follow-up and reassess after lower GI bleed, as well as reassess for resolution of left buttock/thigh hematoma. On echocardiogram she was found incidentally to have a decrease in ejection fraction from prior down to 40-45% as discussed with her. She has not had any chest pain or pressure, and did not have significant elevation of troponin on presentation or obvious signs of RI. She is asked to follow-up with cardiology for additional reassessment. Blood pressures mildly hypertensive during hospitalization, with recent fall, there is a possibility that her blood pressures are getting too low at that time. She is asked to cut down amlodipine dose to 5 mg and monitor blood pressures. Avoid hypotension. She has been bothered by her right shoulder. Severe right shoulder arthropathy was found on x-ray. Physical Exam Const: COMMON NORMALS: patient oriented x3 and alert GENERAL APPEARANCE: cooperative ORIENTATION/CONSCIOUSNESS: Yes awake HENMT: COMMON NORMALS: oropharynx normal Neck/C-Spine: COMMON NORMALS: no JVD Resp: COMMON NORMALS: normal respiratory effort and clear to auscultation bilaterally AUSCULTATION: clear to auscultation bilaterally Cardio: COMMON NORMALS: no JVD, regular rhythm, S1 normal heart sound present, S2 normal heart sound present and No murmurs present (Cardio) RHYTHM: regular rhythm HEART SOUNDS: S1 normal heart sound present and S2 normal heart sound present GI: COMMON NORMALS: Normal to inspection, nondistended, normoactive bowel sounds present, Soft to palpation and non-tender PALPATION: Yes Soft to palpation Extremity: COMMON NORMALS: no joint enlargement and no pedal edema OTHER: Large bruise tracking down the posterior/inner aspect of the left thigh from the left buttock. No lower extremity edema. Extremities perfused. No surrounding erythema, warmth, fluctuance. Neuro: COMMON NORMALS: patient oriented x3 and moves all extremities SENSORIUM/ORIENTATION: Yes alert Urinary Catheter Management: Casas: Cath Placed During This Visit: no Reason for Continuing Indwelling Catheter: Other Discharge Data Studies Completed and Pending Completed Studies During Hospitalization Category Date Time Status CT abdomen pelvis w con* [id number] Stat Cat Scan 10/01/25 09:07 Completed XR chest 1V portable [id number] Stat Exams 10/01/25 06:37 Completed XR shoulder RT min 2V* [id number] Stat Exams 10/01/25 06:30 Completed XR thoracic spine 3V* [id number] Stat Exams 10/01/25 06:37 Completed CV. echo limited [id number] Routine Ultrasound 10/01/25 17:04 Completed Pending at discharge Category Date Time Status Basic Metabolic Panel AM LABS Lab 10/05/25 04:00 Ordered Basic Metabolic Panel AM LABS Lab 10/06/25 04:00 Ordered Blood Culture Stat Lab 10/01/25 14:54 Results Complete Blood Count w/Auto AM LABS Lab 10/05/25 04:00 Ordered Complete Blood Count w/Auto AM LABS Lab 10/06/25 04:00 Ordered Fecal Occult Blood [Immunochemical Fecal OCB] Routine Lab 10/01/25 20:30 Ordered Radiology Impressions Shoulder X-Ray 10/01/25 06:30 IMPRESSION: Severe right shoulder arthropathy as above. Chest X-Ray 10/01/25 06:37 IMPRESSION: Stable chest without acute abnormality. Thoracic Spine X-Ray 10/01/25 06:37 IMPRESSION: Scoliosis and degenerative spondylosis. No acute abnormality. Abdomen/Pelvis CT 10/01/25 09:07 IMPRESSION: 1. Area of increased attenuation compatible with active hemorrhage in the sigmoid colon LEFT lower quadrant. Recommend endoscopy. 2. Sigmoid diverticulosis. 3. Moderate diffuse pancolonic constipation 4. Urine distended bladder Notified Tapan Butt DO at 10/01/2025 10:01 AM. Laboratory Results WBC 7.56 10^3/uL (3.29-11.43) 10/04/25 04:09 RBC 2.70 10^6/uL (3.85-5.65) L 10/04/25 04:09 Hgb 9.60 g/dL (11.27-16.99) L 10/04/25 04:09 Hct 29.2 % (36-47) L 10/04/25 04:09 MCV 108.1 fl (85-98) H 10/04/25 04:09 MCH 35.6 pg (27-33) H 10/04/25 04:09 MCHC 32.9 g/dL (30-55) 10/04/25 04:09 RDW 18.4 % (12.1-15.1) H 10/04/25 04:09 Plt Count 280 10^3/cmm (157-399) 10/04/25 04:09 MPV 10.4 fL (7.4-10.4) 10/04/25 04:09 Neut % (Auto) 53.2 % 10/04/25 04:09 Lymph % (Auto) 25.7 % 10/04/25 04:09 [place] % (Auto) 12.2 % 10/04/25 04:09 Eos % (Auto) 7.5 % 10/04/25 04:09 Baso % (Auto) 0.7 % 10/04/25 04:09 Neut # (Auto) 4.03 10^3/uL (1.8-7.7) 10/04/25 04:09 Lymph # (Auto) 1.9 10^3/uL (0.8-4.8) 10/04/25 04:09 [place] # (Auto) 0.9 10^3/uL (0.2-0.9) 10/04/25 04:09 Eos # (Auto) 0.6 10^3/uL (0.0-0.8) 10/04/25 04:09 Baso # (Auto) 0.1 10^3/uL (0.0-0.1) 10/04/25 04:09 Nucleated RBC % (auto) 0.4 % 10/04/25 04:09 Nucleated RBCs # 0.0 /100WBC 10/04/25 04:09 PT 14.30 SECONDS (12.1-14.9) 10/01/25 13:00 INR 1.04 (0.8-1.2) 10/01/25 13:00 APTT 42.1 SECONDS (23.9-36.7) H 10/01/25 13:00 Sodium 137 mmol/L (136-145) 10/04/25 04:09 Potassium 3.8 mmol/L (3.5-5.1) 10/04/25 04:09 Chloride 104 mmol/L (98-107) 10/04/25 04:09 Carbon Dioxide 28 mmol/L (22-29) 10/04/25 04:09 Anion Gap 8.8 (5-19) 10/04/25 04:09 BUN 8 mg/dL (8-23) 10/04/25 04:09 Creatinine 0.8 mg/dL (0.5-0.9) 10/04/25 04:09 GFR Calculation Not Reportable 10/04/25 04:09 Glucose 88 mg/dL (65-115) 10/04/25 04:09 Calculated Osmolality 282 mOsm/kg (285-295) L 10/04/25 04:09 Lactic Acid 1.0 mmol/L (0.5-2.2) 10/01/25 13:00 Calcium 8.8 mg/dL (8.5-10.5) 10/04/25 04:09 Phosphorus 3.8 mg/dL (2.5-4.5) 10/01/25 14:54 Magnesium 2.2 mg/dL (1.7-2.3) 10/01/25 13:00 Iron 79 ug/dL (37-145) 10/01/25 13:00 TIBC 234 mcg/dl 10/01/25 13:00 % Saturation 33.7 % (20-50) 10/01/25 13:00 Unsat Iron Binding 155 ug/dL (112-347) 10/01/25 13:00 Ferritin 299 ng/mL (15-150) H 10/01/25 13:00 Total Bilirubin 0.9 mg/dL (0.15-1.2) 10/03/25 03:38 AST 11 U/L (0-32) 10/03/25 03:38 ALT 9 U/L (0-33) 10/03/25 03:38 Alkaline Phosphatase 83 U/L (35-105) 10/03/25 03:38 Total Protein 5.1 g/dL (6.6-8.7) L 10/03/25 03:38 Albumin 3.5 g/dL (3.5-5.2) 10/03/25 03:38 Globulin 1.6 g/dL (1.3-4.6) 10/03/25 03:38 Vitamin B12 693 pg/mL (232-1245) 10/01/25 13:00 Folate 6.1 ng/mL (4.8-37.3) 10/01/25 14:54 TSH 3.29 uIU/mL (0.27-4.20) 10/01/25 13:00 Urine Color Yellow (Yellow) 10/01/25 09:51 Urine Appearance Clear (CLEAR) 10/01/25 09:51 Urine pH 8.0 (5-7) A 10/01/25 09:51 Ur Specific [place] 1.016 (1.005-1.030) 10/01/25 09:51 Urine Protein Negative (Negative) 10/01/25 09:51 Urine Glucose (UA) Negative (Normal) 10/01/25 09:51 Urine Ketones Negative (Negative) 10/01/25 09:51 Urine Blood Non-haemolysed trace (Negative) 10/01/25 09:51 Urine Nitrate Negative (Negative) 10/01/25 09:51 Urine Bilirubin Negative (Negative) 10/01/25 09:51 Urine Urobilinogen 1.0 mg/dL (Negative) 10/01/25 09:51 Ur Leukocyte Esterase Trace (Negative) A 10/01/25 09:51 Urine RBC 3-5 /hpf (0-2) 10/01/25 09:51 Urine WBC 6-10 /hpf (0-5) 10/01/25 09:51 Ur Squamous Epith Cells 0-5 /hpf (0-5) 10/01/25 09:51 Amorphous Sediment Not Reportable 10/01/25 09:51 Urine Bacteria 4+ /hpf (NONE) H 10/01/25 09:51 Hyaline Casts 0-4 /lpf H 10/01/25 09:51 Blood Type O Positive 10/01/25 09:22 Rho(D) Type Rh positive 10/01/25 09:22 Antibody Screen Negative 10/01/25 09:22 Vitals Last Vital Signs Temp 98.1 F 10/04/25 07:45 Pulse 47 L 10/04/25 07:45 Resp 16 10/04/25 07:45 BP 136/64 10/04/25 07:45 Pulse Ox 95 10/04/25 07:45 O2 Del Method Room Air 10/04/25 07:45 O2 Flow Rate 8 10/03/25 08:53 Discharge Plan Discharge Patient Disposition: Home Condition: Stable Prescriptions: Continued multivitamin Tablet 1 tab PO DAILY propylthiouracil 50 mg tablet 50 mg PO TID hydroxyzine HCl 25 mg tablet 25 mg PO TID PRN (Reason: Anxiety) fluticasone propionate [Flonase Allergy Relief] 50 mcg/actuation spray,suspension 2 spray INTRANASAL DAILY Rx Instructions: administer into each nostril bupropion HCl 150 mg tablet extended release 24 hr 150 mg PO BID (DME) custom inserts See Rx Instructions .Route .MEDSUPPLY Qty: 1 0RF Rx Instructions: As directed potassium chloride [Klor-Con 8] 8 mEq tablet extended release 8 meq PO DAILY Qty: 90 3RF furosemide [Lasix] 20 mg tablet 20 mg PO DAILY PRN (Reason: sob) Qty: 90 0RF losartan 100 mg tablet 100 mg PO DAILY 30 Days Qty: 30 0RF vitamin B complex Tablet 1 tab PO DAILY ondansetron 4 mg tablet,disintegrating 4 mg PO Q8H PRN (Reason: Nausea And Vomiting) Urinary Cranberry Blend 200-50-20 mg Capsule 1 cap PO DAILY clonidine HCl 0.1 mg tablet 0.1 mg PO TID PRN (Reason: high blood pressure) tizanidine 2 mg tablet 2 mg PO BID metoprolol tartrate 50 mg tablet 50 mg PO BID hydrochlorothiazide 12.5 mg capsule 12.5 mg PO DAILY amiodarone 200 mg tablet 200 mg PO DAILY Changed amlodipine 10 mg Tablet 5 mg PO DAILY Qty: 30 0RF Held aspirin 81 mg tablet 81 mg PO DAILY Hold Instructions: Resume on 10/11/25. Discontinued tramadol 50 mg tablet 50 mg PO Q8H PRN (Reason: Pain) Eliquis 5 mg tablet 5 mg PO BID Discharge Order = DC NOW: Discharge Order (Routine); Ordered 10/04/25 Ordered By: Ibrahima Eastman Referrals: Michele Recio M.D [Physician, Cardiology] - 1 week Referral Note: We have notified your physician's clinic of the need for a follow-up appointment to be scheduled. If you have not heard from them within the next 2 business days, please call them directly. Jean Gibbons [Primary Care Provider, Family Practice] - 4-7 days Referral Note: You will need to contact your primary care provider Sunday to make a hospital discharge follow up in 4-7 days. Patient Instructions: Gastrointestinal Bleeding (GEN), GI Post Discharge Instructions w/ Anesthesia, Opioid Safety, Patient Portal & [place] Instructions Activity Restrictions/Additional Instructions: Follow-up with your primary provider for reassessment of anemia after GI bleeding as well as reassessment of hematoma/bruise of left buttock/thigh. Please discontinue tramadol as discussed due to increasing risk of bleeding. Avoid Eliquis at this time and please hold aspirin for next week. Seek medical attention in case of any additional bleeding. Use Tylenol, heat or cooling as needed for neck pain. Avoid any chiropractor procedures on your neck or upper back. Monitor blood pressure at home 2-3 times daily. Avoid low blood pressures which may cause lightheadedness and falls. For now decrease your amlodipine dose to 5 mg. Avoid blood pressures less than 100 systolic or less than 50 diastolic. Hold metoprolol if your heart rate is 50 or less. Follow-up with cardiology regarding decrease in your heart ejection fraction. Discharge Attestations Time Spent in Discharge Care*: greater than 30 min Status at Discharge: Cognitive status at discharge: mildly impaired cognition, Behavioral status at discharge: cooperative, Quality Metrics Clinical Quality Measures [ No reported AMI, CVA or VTE this stay] Coding Level of Care Code 95063 Total time (in minutes) for Discharge: 45 Diagnoses Lower gastrointestinal bleed K92.2 Hematoma of buttock S30.0XXA Leukocytosis D72.829 Generalized weakness R53.1 Back pain M54.9 Uncontrolled hypertension I10 PAD (peripheral artery disease) I73.9 Hypothyroidism E03.9 COPD (chronic obstructive pulmonary disease) J44.9 Paroxysmal atrial fibrillation I48.0 Atrial fibrillation type: paroxysmal Anxiety F41.9 Heart failure with reduced ejection fraction I50.20 Mixed hyperlipidemia E78.2 Hyperlipidemia type: mixed hyperlipidemia
[2025-10-04] MEDS: FLU VACC TS2025-26(6MOS UP)/PF 45 MCG/0.5 ML SYRINGE IM (10:24)
== END 2025-10-04 12:46 | disposition home or self-care (01) | DRG 378 ==
LOC: ER 09:12 → ICU 13:04 → MEDSURG 10-02 17:22
PROVIDERS: Internal Medicine; Surgery; Admitting Provider Student in an Organized Health Care Education/Training Program; Emergency Provider Family Medicine; PCP Family Medicine; Visit Provider Internal Medicine
PROC: 0DJD8ZZ Inspection of Lower Intestinal Tract, Via Natural or Artificial Opening Endoscopic (ICD-10-PCS; CPT 45330; 2025-10-03 08:00)
PROC: 0DJD8ZZ Inspection of Lower Intestinal Tract, Via Natural or Artificial Opening Endoscopic (ICD-10-PCS; 2025-10-03 08:00)
DX: K57.31 Diverticulosis of large intestine without perforation or abscess with bleeding (principal); I42.8 Other cardiomyopathies; I50.22 Chronic systolic (congestive) heart failure; S70.12XA Contusion of left thigh, initial encounter; X58.XXXA Exposure to other specified factors, initial encounter; M54.9 Dorsalgia, unspecified; I11.0 Hypertensive heart disease with heart failure; I73.9 Peripheral vascular disease, unspecified; E03.9 Hypothyroidism, unspecified; J44.9 Chronic obstructive pulmonary disease, unspecified; I48.0 Paroxysmal atrial fibrillation; F41.9 Anxiety disorder, unspecified; E78.2 Mixed hyperlipidemia; D46.9 Myelodysplastic syndrome, unspecified; M19.011 Primary osteoarthritis, right shoulder; G31.84 Mild cognitive impairment of uncertain or unknown etiology; I27.20 Pulmonary hypertension, unspecified; I25.10 Atherosclerotic heart disease of native coronary artery without angina pectoris; R01.1 Cardiac murmur, unspecified; I95.9 Hypotension, unspecified; I48.91 Unspecified atrial fibrillation; Z87.440 Personal history of urinary (tract) infections; Z87.891 Personal history of nicotine dependence; Z80.0 Family history of malignant neoplasm of digestive organs
CPT/HCPCS: 36415; 71045; 72072; 73030; 74177; 80048; 80053; 81001; 82274; 82607; 82728; 82746; 83540; 83550; 83605; 83735; 84100; 84443; 85014; 85018; 85025; 85610; 85730; 86850; 86900; 87040; 90471; 90656; 93005; 93308; 96365; 96375; 97163; 97167; 97530; 99285; 99291; 99292; J0360; J0696; J2270; J2405; J2470; J3490; J7030; J7120; J9999

== ENCOUNTER 2025-10-13 09:56 | Oncology outpatient (recurring) (ONCR) | payer MEDICARE, OTHER, SELFPAY ==
[2025-10-13 10:41] LABS: Hematocrit 34.6 % (36-47); Hemoglobin 11.20 g/dL (11.27-16.99); Mean Corpuscular HGB Conc 32.4 g/dL (30-55); Mean Corpuscular Hemoglobin 35.1 pg (27-33); Mean Corpuscular Volume 108.5 fl (85-98); Nucleated Red Blood Cells % 0.6 %; Platelet Count 453 10^3/cmm (157-399); Red Blood Count 3.19 10^6/uL (3.85-5.65); White Blood Count 8.20 10^3/uL (3.29-11.43)
[2025-10-13 10:59] LABS: Alanine Aminotransferase 11 U/L (0-33); Albumin Level 4.4 g/dL (3.5-5.2); Alkaline Phosphatase 94 U/L (35-105); Anion Gap 16.1 (5-19); Aspartate Amino Transferase 15 U/L (0-32); Blood Urea Nitrogen 16 mg/dL (8-23); Calcium 9.1 mg/dL (8.5-10.5); Carbon Dioxide 27 mmol/L (22-29); Chloride 99 mmol/L (98-107); Globulin 2.5 g/dL (1.3-4.6); Glucose 111 mg/dL (65-115); Osmolality Calculated 288 mOsm/kg (285-295); Potassium 4.1 mmol/L (3.5-5.1); Sodium 138 mmol/L (136-145); Total Protein 6.9 g/dL (6.6-8.7)
[2025-10-13] MEDS: luspatercept-aamt 25 mg 65.5 MG SUBCUT (11:58)
[2025-10-13 12:40] LABS: Glucose Urine UA Negative (Normal); Nitrate Urine Negative (Negative); Specific Gravity, Urine 1.006 (1.005-1.030)
[2025-10-13 12:43] LABS: Add Urine Microscopic? YES
== END 2025-10-13 23:59 | disposition home or self-care (01) ==
PROVIDERS: Nurse Practitioner; PCP Family Medicine; Visit Provider Internal Medicine Medical Oncology
DX: D46.Z Other myelodysplastic syndromes (principal); R03.0 Elevated blood-pressure reading, without diagnosis of hypertension; Z87.891 Personal history of nicotine dependence; Z79.899 Other long term (current) drug therapy; Z15.89 Genetic susceptibility to other disease; Z15.09 Genetic susceptibility to other malignant neoplasm
CPT/HCPCS: 36415; 80053; 81001; 85025; 96372; 99214; J0896

== ENCOUNTER 2025-11-03 07:31 | Oncology outpatient (recurring) (ONCR) | payer MEDICARE, OTHER, SELFPAY ==
[2025-11-03 08:46] LABS: Hematocrit 37.5 % (36-47); Hemoglobin 12.30 g/dL (11.27-16.99); Mean Corpuscular HGB Conc 32.8 g/dL (30-55); Mean Corpuscular Hemoglobin 34.9 pg (27-33); Mean Corpuscular Volume 106.5 fl (85-98); Nucleated Red Blood Cells % 0.2 %; Platelet Count 419 10^3/cmm (157-399); Red Blood Count 3.52 10^6/uL (3.85-5.65); White Blood Count 9.99 10^3/uL (3.29-11.43)
[2025-11-03 08:48] LABS: Alanine Aminotransferase 12 U/L (0-33); Albumin Level 4.6 g/dL (3.5-5.2); Alkaline Phosphatase 103 U/L (35-105); Anion Gap 12.9 (5-19); Aspartate Amino Transferase 18 U/L (0-32); Blood Urea Nitrogen 17 mg/dL (8-23); Calcium 9.6 mg/dL (8.5-10.5); Carbon Dioxide 30 mmol/L (22-29); Chloride 98 mmol/L (98-107); Globulin 2.2 g/dL (1.3-4.6); Glucose 89 mg/dL (65-115); Osmolality Calculated 285 mOsm/kg (285-295); Potassium 3.9 mmol/L (3.5-5.1); Sodium 137 mmol/L (136-145); Total Protein 6.8 g/dL (6.6-8.7)
[2025-11-03 10:07] LABS: Ferritin 168 ng/mL (15-150); Iron 100 ug/dL (37-145); Total Iron Binding Capacity 317 mcg/dl; Unsaturated Iron Binding 217 ug/dL (112-347)
[2025-11-03 10:23] LABS: Vitamin B12 634 pg/mL (232-1245)
== END 2025-11-11 23:59 | disposition home or self-care (01) ==
PROVIDERS: PCP Family Medicine; Visit Provider Internal Medicine Medical Oncology
DX: D46.Z Other myelodysplastic syndromes (principal); I50.20 Unspecified systolic (congestive) heart failure; Z87.891 Personal history of nicotine dependence; Z15.89 Genetic susceptibility to other disease; Z15.09 Genetic susceptibility to other malignant neoplasm; Z79.899 Other long term (current) drug therapy
CPT/HCPCS: 80053; 82607; 82728; 82746; 83540; 83550; 85025; 99214

== ENCOUNTER → 2025-11-11 09:10 | Outpatient (BNVA) | payer MEDICARE, OTHER, SELFPAY | PROVIDERS: PCP Family Medicine; Visit Provider Thoracic Surgery (Cardiothoracic Vascular Surgery) | DX: L97.521 Non-pressure chronic ulcer of other part of left foot limited to breakdown of skin (principal); L84 Corns and callosities | CPT/HCPCS: 97597; 99203 ==